=== PATIENT | male | born 1965 | race Caucasian/White ===

== ENCOUNTER 2017-09-17 19:49 | Emergency (ER) | payer OTHER, SELFPAY ==
[2017-09-17 19:55] VITALS: BP 152/97; PULSE 108; RESP 16; TEMP 36.6; O2SAT 97; BMI 38.9
--- NOTE | 2017-09-17 20:13 | XR_ITS ---
XR chest 2V HISTORY: ITS.REASON: PALPATIONS ORDERING PHYSICIAN: Ronaldo Joyner MD PATIENT AGE: 51 years COMPARISON: None available FINDINGS: The cardiomediastinal silhouette and pulmonary vascularity are within normal limits. There is coarsening of the bronchovascular markings with hyperinflation consistent with COPD. Atelectatic or fibrotic changes are present within the lingula. No lobar consolidation or collapse. No acute bony anomalies. IMPRESSION: COPD with atelectatic or fibrotic changes within the lingula
[2017-09-17 20:22] LABS: Microscopic, Urine URINE MICROSCOPIC (MICROSCOPIC)
[2017-09-17 20:23] LABS: Appearance,Urine CLEAR (Clear); Bilirubin,Urine Negative (Negative); Blood, Urine TRACE-L (Negative); Color,Urine YELLOW (Yellow); Glucose,Urine (UA) Negative (Negative); Ketones,Urine Negative (Negative); Leukocyte Esterase,Urine Negative (Negative); Nitrate,Urine Negative (Negative); Protein,Urine Negative (Negative); Urobilinogen,Urine 0.2 EU/dl (0.2)
[2017-09-17 20:34] LABS: Basophils # 0.1 K/mm3 (0-0.2); Basophils % 0.7 % (0.1-2.0); Eosinophils # 0.2 K/mm3 (0.0-0.4); Eosinophils % 2.5 % (0.1-12.0); Hematocrit 44.9 % (42.0-52.0); Hemoglobin 15.7 g/dL (14.1-18.0); Lymphocytes # 2.5 K/mm3 (0.7-4.5); Lymphocytes % 28.7 K/mm3 (10-50); Mean Corpuscular HGB Conc 34.9 g/dL (31.8-35.4); Mean Corpuscular Hemoglobin 29.7 pg (27.0-31.2); Mean Corpuscular Volume 85.3 fl (80-94); Mean Platelet Volume 7.3 fl (7.4-10.4); Monocytes # 0.6 K/mm3 (0.1-1.0); Monocytes % 6.6 % (1.7-9.3); Neutrophils # 5.3 K/mm3 (1.8-7.8); Neutrophils % 61.5 % (37.0-80.0); Platelet Count 247 K/mm3 (142-424); Red Blood Count 5.27 M/mm3 (4.60-6.20); Red Cell Distribution Width 12.8 % (11.5-17.5); White Blood Count 8.6 K/mm3 (4.8-10.8)
[2017-09-17 20:46] LABS: Activated Partial Thrombo Time 33.9 seconds (23.6-34.0); INR 2.46 (0.9-1.1); Prothrombin Time 26.8 seconds (9.4-11.8)
[2017-09-17 21:00] LABS: Alanine Aminotransferase 45 U/L (12-78); Albumin/Globulin Ratio 1.1 (1.1-1.8); Alkaline Phosphatase 94 U/L (46-116); Anion Gap 12.7 mEq/L (5-15); Aspartate Amino Transferase 24 U/L (15-37); Bilirubin,Total 0.4 mg/dL (0.2-1.0); Blood Urea Nitrogen 17 mg/dL (7-18); CKMB Relative Index 0.9 U/L (0-4.0); Calcium 9.2 mg/dL (8.5-10.1); Carbon Dioxide 31 mmol/L (21.0-32.0); Chloride 101 mmol/L (98-107); Creatine Kinase 139 U/L (39-308); Creatine Kinase MB 1.3 mg/ml (0.0-3.6); Creatinine Clearance Estimated 138 mL/min (0-300); Creatinine,Serum 1.09 mg/dL (0.70-1.30); Estimated Glomerular Filt Rate 71 ml/min (>60); GFR (African American) 86 ML/MIN (>60); Globulin 3.7 gm/dl (1.3-3.2); Glucose 139 mg/dL (74-106); Potassium 3.7 mmoL/L (3.5-5.1); Sodium 141 mmol/L (136-145); Total Protein,Serum 7.7 gm/dL (6.4-8.2); Troponin I < 0.02 ng/ml (0.00-0.06)
[2017-09-17 21:02] LABS: Bacteria,Urine Trace /lpf; RBC,Urine Occasional #/hpf (0-3)
--- NOTE | 2017-09-17 21:10 | HMH.EDDIZZ ---
ED Disposition Clinical Impression: Benign paroxysmal positional vertigo Qualifiers: Laterality: unspecified laterality Qualified Code(s): H81.10 - Benign paroxysmal vertigo, unspecified ear Disposition: Home, Self-Care Condition on Discharge: Good Instructions: Dizziness, Nonvertigo Additional Instructions: use meds and call your pcp in am Prescriptions: Meclizine HCl [Antivert 25mg tablet] 25 mg PO TID #15 tab - Critical Care Critical Care Time: No Attestation: On 09/17/17, the high probability of a clinically significant, sudden or life threatening deterioration of the following system(s) required my full and direct attention, intervention and personal management. The time I documented below is in addition to time spent performing reported procedures but includes the following listed in this critical care notation. Medical Decision Making - Medical Records Medical records reviewed: Yes: I reviewed the patient's medical records. Vital Signs: 09/17/17 19:55 09/17/17 21:12 Temperature 97.9 F Temperature Source Oral Pulse Rate [Right] 108 H 85 Respiratory Rate 16 12 Blood Pressure [Right Arm] 152/97 131/78 Blood Pressure Mean [Right Arm] 115 95 02 Sat by Pulse Oximetry 97 96 Oxygen Delivery Method Room Air Room Air - Lab Data Lab results reviewed: Yes: I reviewed the patient's lab results. Lab Results 09/17/17 20:14: PT 26.8 H, INR 2.46 H, APTT 33.9 09/17/17 20:16: WBC 8.6, RBC 5.27, Hgb 15.7, Hct 44.9, MCV 85.3, MCH 29.7, MCHC 34.9, RDW 12.8, Plt Count 247, MPV 7.3 L, Neut % (Auto) 61.5, Lymph % (Auto) 28.7, [place] % (Auto) 6.6, Eos % (Auto) 2.5, Baso % (Auto) 0.7, Neut # (Auto) 5.3, Lymph # (Auto) 2.5, [place] # (Auto) 0.6, Eos # (Auto) 0.2, Baso # (Auto) 0.1 09/17/17 20:16: Sodium 141, Potassium 3.7, Chloride 101, Carbon Dioxide 31, Anion Gap 12.7, BUN 17, Creatinine 1.09, Estimated Creat Clear 138, Estimated GFR 71, Est GFR ( Amer) 86, Glucose 139 H, Calcium 9.2, Total Bilirubin 0.4, AST 24, ALT 45, Alkaline Phosphatase 94, Total Creatine Kinase 139, CK-MB (CK-2) 1.3, CK-MB (CK-2) Rel Index 0.9, Troponin I < 0.02, Total Protein 7.7, Albumin 4.0, Globulin 3.7 H, Albumin/Globulin Ratio 1.1 09/17/17 20:16: Urine Color Yellow, Urine Appearance Clear, Urine pH 6.0, Ur Specific [place] 1.010, Urine Protein Negative, Urine Glucose (UA) Negative, Urine Ketones Negative, Urine Blood Trace-l, Urine Nitrate Negative, Urine Bilirubin Negative, Urine Urobilinogen 0.2, Ur Leukocyte Esterase Negative, Urine RBC Occasional, Urine Bacteria Trace Result diagrams: 09/17/17 20:16 09/17/17 20:16 Orders (Tests/Meds): ORDERS Category Date Time Status XR chest 2V Stat Exams 09/17/17 20:13 Taken ECG Request by /Nse Stat Y 09/17/17 20:13 Ordered - Radiology Data #1 Image(s): Chest Image Reviewed: Yes I reviewed the patient's radiology image Preliminary Findings: Normal/NAD - ECG Data Tracing #1 I reviewed this ECG and interpreted as documented below: Normal Sinus Rhythm: Yes Ischemic changes: non-specific ST-T wave changes - Mack Inquiry Pt receiving controlled substance: No Dizzy HPI - General Chief Complaint: Dizziness Stated Complaint: dizzy,sick at stomach High B/PHeart high Time Seen by Provider: 09/17/17 21:10 Mode of Arrival: Ambulatory Limitations: No Limitations Description of Symptoms (Recalled from ER Triage Doc. by RN): PT STATES WHEN HE GOT OUT OF BED, HE WAS DIZZY, HAD A OLVERA, PALPATIONS, PT DENIES ANY PAIN, PT STATES HE HAS A HISTORY OF HTN AND TAKES MEDS - History of Present Illness HPI Narrative: pt with dizzyness and started this am with no fever or trauma and no focal neuro sx and has had no recent illness - no olvera MD complaint: dizziness Onset (ago): hour(s) Timing: awoke with symptoms Description: lightheadedness History of similar episodes: No History of trauma: No Severity: moderate Exacerbating factors: movement - Related Data Home Medications
[2017-09-17 21:12] VITALS: BP 131/78; PULSE 85; RESP 12; O2SAT 96
--- NOTE | 2017-09-17 21:36 | PC.NURSE ---
[facility] CONSULTED RE YUMIKOERT CONSIDERED A SEDATING DRUG TO PREVENT DRIVING HOME. STATES ITS WOULD BE OK TO ADMINISTER TO PATIENT AND LET HIM DRIVE HOME
[2017-09-17 21:40] VITALS: BP 133/74; PULSE 87; RESP 12; O2SAT 95
[2017-09-17 21:46] VITALS: BP 133/74; PULSE 87; RESP 12; TEMP 37.1; O2SAT 95
== END 2017-09-17 21:49 | disposition home or self-care (01) ==
PROVIDERS: Emergency Medicine; Emergency Provider Emergency Medicine
DX: H81.10 Benign paroxysmal vertigo, unspecified ear (principal); F17.200 Nicotine dependence, unspecified, uncomplicated; Z79.01 Long term (current) use of anticoagulants; Z79.899 Other long term (current) drug therapy
CPT/HCPCS: 71046; 80053; 81001; 82550; 82553; 84484; 85025; 85610; 85730; 93005; 99284

== ENCOUNTER 2017-09-19 18:51 | Emergency (ER) | payer OTHER, SELFPAY ==
[2017-09-19 19:13] VITALS: BP 135/85; PULSE 82; RESP 14; TEMP 37.1; O2SAT 98
== END 2017-09-19 19:16 | disposition left against medical advice (07) ==
LOC: ER 19:13
PROVIDERS: Emergency Provider Emergency Medicine
DX: Z53.21 Procedure and treatment not carried out due to patient leaving prior to being seen by health care provider (principal)

== ENCOUNTER → 2018-09-29 12:01 | Outpatient (CLI) | payer OTHER, SELFPAY ==
--- NOTE | 2018-09-29 12:09 | NVE_ITS ---
Venous Exam Indications: 729.5 Pain in limb. IMPRESSIONS 1. There is no evidence of significant Reflux. 2. No evidence of deep or superficial vein thrombosis involving the left lower extremity Left lower extremity venous duplex evaluation. Doppler flow study including spectral analysis, color and matthews scale imaging. Location: Vascular laboratory. Patient status: Outpatient. Tables: Venous flow and imaging: + +-------+ + Location Overall Flow properties + +-------+ + Left common femoral Patent Normal phasicity; spontaneous; normal augmentation; compressible + +-------+ + Left saphenofemoral junction Patent Compressible + +-------+ + Left profunda femoral Patent Compressible + +-------+ + Left femoral Patent Normal phasicity; spontaneous; normal augmentation; compressible + +-------+ + Left greater saphenous Patent Normal phasicity; spontaneous; normal augmentation; compressible + +-------+ + Left popliteal Patent Normal phasicity; spontaneous; normal augmentation; compressible + +-------+ + Left posterior tibial Patent Compressible + +-------+ + Left peroneal Patent Compressible + +-------+ + Left gastrocnemius Patent Compressible + +-------+ + Left soleal Patent Compressible + +-------+ + (Report amended ) Electronically signed by: Rodrigo Ballard [id number]
== END ==
PROVIDERS: Visit Provider Emergency Medicine
DX: M79.652 Pain in left thigh (principal)
CPT/HCPCS: 93971

== ENCOUNTER 2021-03-21 17:24 | Emergency (ER) | payer MEDICAID, SELFPAY ==
[2021-03-21 17:26] VITALS: BP 158/87; PULSE 84; RESP 20; TEMP 36.8; O2SAT 93; BMI 38.7
[2021-03-21 18:20] VITALS: BP 132/71; PULSE 78; RESP 18; TEMP 36.8; O2SAT 98
--- NOTE | 2021-03-21 18:22 | HMH.EDGENADL ---
ED Disposition Clinical Impression: Left thigh pain Disposition: Home, Self-Care Condition on Discharge: Good Referrals: Fauzia Sterling [Primary Care Provider] - - Critical Care Critical Care Time: No Attestation: On 03/21/21, the high probability of a clinically significant, sudden or life threatening deterioration of the following system(s) required my full and direct attention, intervention and personal management. The time I documented below is in addition to time spent performing reported procedures but includes the following listed in this critical care notation. Medical Decision Making - Medical Records Medical records reviewed: Yes: I reviewed the patient's medical records. - Mack Inquiry Pt receiving controlled substance: No Vital Signs: 03/21/21 17:26 03/21/21 18:20 Temperature 98.3 F 98.3 F Temperature Source Oral Oral Pulse Rate 78 Pulse Rate [Left] 84 Respiratory Rate 20 18 Blood Pressure 132/71 Blood Pressure [Right Arm] 158/87 H Blood Pressure Mean [Right Arm] 110 Blood Pressure Source [Right Arm] Automatic Cuff 02 Sat by Pulse Oximetry 93 L Oxygen Delivery Method Room Air Room Air Medical Decision Narrative: 55 history of hypercoagulable disorder presented to the ED today with right thigh pain. Patient is well-appearing on initial evaluation no acute distress, ambulatory without shortness of breath no tachycardia on exam. Patient is therapeutic on his warfarin, and just had a checked recently. Differential diagnosis includes DVT, musculoskeletal pain, fracture of the lower extremity. Attempted to order DVT ultrasound of the left lower extremity, however do not have ultrasound in house at this time of night. After extensive discussion with the patient and given he is already on anticoagulation, will order outpatient study which he can obtain tomorrow and I will follow up the result. I have also performed an independent sound myself in the emergency department to assess for DVT, patient has collapsible femoral vein, and deep femoral vessels from the inguinal crease to popliteal areas, down into the calf I do not visualize any evidence of superficial or deep femoral vein, Dopplers were not performed, and I stressed to the patient that he could still have small DVTs which because by radiology and not by my bedside ultrasound. Patient also instructed that should he feel chest pain or shortness of breath or syncope consistent with pulmonary embolism he should return to the ED for further evaluation. Pt has verbalized understanding with this plan. General Adult HPI - General Chief complaint: Extremity Problem,Nontraumatic Stated complaint: possible blood clot/pain L leg Time Seen by Provider: 03/21/21 17:25 Mode of Arrival: Ambulatory Limitations: No Limitations Description of Symptoms (Recalled from ER Triage Doc. by RN): patient with hx of DVT c/o tingling in left leg/thigh area. describes pain as same pain like in the past when patient had a DVT. no warmness, or pain in a specific area. - History of Present Illness HPI narrative: 55-year-old male presents the ED today for left thigh pain. States that this is consistent with his prior episodes of DVT. 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 Just had his INR checked and was therapeutic. States that he has had several days, approaching a week of posterior thigh pain that he describes consistent with prior episodes of DVT in the left lower extremity. Follows with a [facility] care [facility] the [facility], has had pulmonary emboli and has been admitted to the hospital for these in the past. States he has not had any palpitations, shortness of breath, chest pain, activity limitation, states that he is on his feet all day and has had no difficulty doing his own activities of daily ernesto
== END 2021-03-21 18:35 | disposition home or self-care (01) ==
PROVIDERS: Emergency Provider Student in an Organized Health Care Education/Training Program; PCP Family Medicine
DX: M79.652 Pain in left thigh (principal); F17.210 Nicotine dependence, cigarettes, uncomplicated; Z86.718 Personal history of other venous thrombosis and embolism; Z88.0 Allergy status to penicillin
CPT/HCPCS: 99281

== ENCOUNTER → 2021-03-22 08:32 | Outpatient (CLI) | payer MEDICAID, SELFPAY ==
--- NOTE | 2021-03-22 | CA_ITS ---
APPROVED REPORT Left Lower Extremity Venous Study for DVT. 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 Presents today with pain in LLE and tingling/numbness in left foot x 1 week. Risk Factors Prior Phlebitis/DVT Obesity Current Smoker Medications Patient takes Warfarin daily. Vein Imaging CFV (L): compressive, spontaneous, phasic, augmentation FEM (L): compressive, spontaneous, phasic, augmentation POP (L): compressive, spontaneous, phasic, augmentation PTV (L): Compressible GSV (L): compressive, spontaneous, phasic, augmentation SSV (L): Compressible Peroneals (L):Compressible GAS (L): Compressible Findings No evidence of DVT or superficial thrombophlebitis in the veins scanned of the left lower extremity. Conclusion No evidence of DVT or superficial thrombophlebitis in the veins scanned of the left lower extremity. Electronically signed by : Rodrigo Ballard MD 03/22/2021 16:22:00
== END ==
PROVIDERS: PCP Family Medicine; Visit Provider Emergency Medicine
DX: M79.652 Pain in left thigh (principal); Z86.718 Personal history of other venous thrombosis and embolism; Z79.01 Long term (current) use of anticoagulants
CPT/HCPCS: 93971

== ENCOUNTER 2021-04-09 19:08 | Emergency (ER) | payer MEDICAID, SELFPAY ==
[2021-04-09 19:10] VITALS: BP 154/83; PULSE 90; RESP 21; TEMP 36.8; O2SAT 97; BMI 38.7
--- NOTE | 2021-04-09 19:54 | ECG_ITS ---
APPROVED REPORT Exam: Resting ECG HR:86 bpm ECG Measurements Heart Rate 86 AXES WY 212 P 44 QRSd 70 QRS -1 QT 354 T 40 QTc 423 Conclusion Sinus rhythm with 1st degree AV block Nonspecific ST abnormality Abnormal ECG Electronically signed by : Esvin Phelps MD 04/10/2021 08:55:57
--- NOTE | 2021-04-09 19:58 | XR_ITS ---
PROCEDURE INFORMATION: Exam: XR Chest Exam date and time: 04/09/2021 7:58 PM Age: 55 years old Clinical indication: Pain; Chest pressure; Additional info: Cp TECHNIQUE: Imaging protocol: XR of the chest. Views: 4 or more views. COMPARISON: CR CXR2V XR chest 2V 04/20/2018 9:26 PM FINDINGS: Lungs: Unremarkable. No consolidation. Pleural spaces: Unremarkable. No pleural effusion. No pneumothorax. Heart/Mediastinum: Unremarkable. No cardiomegaly. Bones/joints: Unremarkable. Soft tissues: The examination is limited due to limited inspiration and penetration of the chest with obese body habitus and lordotic projection presented. IMPRESSION: No acute findings.
[2021-04-09 20:14] LABS: Basophils # 0.1 K/mm3 (0-0.2); Basophils % 0.9 % (0.1-2.0); Eosinophils # 0.3 K/mm3 (0.0-0.4); Eosinophils % 2.5 % (0.1-12.0); Hematocrit 48.6 % (42.0-52.0); Hemoglobin 17.1 g/dL (14.1-18.0); Lymphocytes % 28.1 % (10-50); Mean Corpuscular HGB Conc 35.2 g/dL (31.8-35.4); Mean Corpuscular Hemoglobin 30.2 pg (27.0-31.2); Mean Corpuscular Volume 85.8 fl (80-94); Mean Platelet Volume 6.9 fl (7.4-10.4); Monocytes # 0.7 K/mm3 (0.1-1.0); Monocytes % 6.7 % (1.7-9.3); Neutrophils # 6.6 K/mm3 (1.8-7.8); Neutrophils % 61.8 % (37.0-80.0); Platelet Count 303 K/mm3 (142-424); Red Blood Count 5.66 M/mm3 (4.60-6.20); Red Cell Distribution Width 13.1 % (11.5-17.5); White Blood Count 10.7 K/mm3 (4.8-10.8)
[2021-04-09 20:20] LABS: Alanine Aminotransferase 24 U/L (12-78); Albumin Level 4.4 g/dl (3.5-5.0); Alkaline Phosphatase 119 U/L (38-126); Anion Gap 14.2 mEq/L (5-15); Aspartate Amino Transferase 34 U/L (17-59); Bilirubin,Direct 0.1 mg/dl (0.0-0.4); Bilirubin,Indirect 0.4 mg/dL (0.0-0.9); Bilirubin,Total 0.5 mg/dl (0.2-1.3); Bilirubin,Unconjugated 0.3 mg/dL (0.0-1.1); Blood Urea Nitrogen 14 mg/dl (9-20); Calcium 9.4 mg/dl (8.4-10.2); Carbon Dioxide 31 mmol/L (22.0-30.0); Chloride 97 mmol/L (98-107); Creatinine Clearance Estimated 179 mL/min (50-200); Estimated Glomerular Filt Rate 100 ml/min (>60); GFR (African American) 121 ML/MIN (>60); Glucose 137 mg/dl (74-100); Potassium 4.2 mmoL/L (3.5-5.1); Sodium 138 mmol/L (136-145); Total Protein,Serum 7.5 g/dl (6.3-8.2)
[2021-04-09 20:31] LABS: INR 2.21 (0.9-1.1); Prothrombin Time 24.6 seconds (10.1-12.5)
--- NOTE | 2021-04-09 20:32 | HMH.EDCP ---
ED Disposition Clinical Impression: Chest pain Qualifiers: Chest pain type: precordial pain Qualified Code(s): R07.2 - Precordial pain Disposition: Home, Self-Care Condition on Discharge: Good Instructions: DI for Atypical Chest Pain Additional Instructions: call pcp for follow up and recheck if needed Referrals: Fauzia Sterling [Primary Care Provider] - - Critical Care Critical Care Time: No Attestation: On 04/09/21, the high probability of a clinically significant, sudden or life threatening deterioration of the following system(s) required my full and direct attention, intervention and personal management. The time I documented below is in addition to time spent performing reported procedures but includes the following listed in this critical care notation. Medical Decision Making - Medical Records Medical records reviewed: Yes: I reviewed the patient's medical records. - Mack Inquiry Pt receiving controlled substance: No Vital Signs: 04/09/21 19:10 Temperature 98.2 F Temperature Source Oral Pulse Rate [Right] 90 Respiratory Rate 21 Blood Pressure [Right Arm] 154/83 H Blood Pressure Mean [Right Arm] 106 02 Sat by Pulse Oximetry 97 Oxygen Delivery Method Room Air - Lab Data Lab results reviewed: Yes: I reviewed the patient's lab results. Lab Results 04/09/21 19:15: WBC 10.7, RBC 5.66, Hgb 17.1, Hct 48.6, MCV 85.8, MCH 30.2, MCHC 35.2, RDW 13.1, Plt Count 303, MPV 6.9 L, Neut % (Auto) 61.8, Lymph % (Auto) 28.1, [place] % (Auto) 6.7, Eos % (Auto) 2.5, Baso % (Auto) 0.9, Neut # (Auto) 6.6, Lymph # (Auto) 3.0, [place] # (Auto) 0.7, Eos # (Auto) 0.3, Baso # (Auto) 0.1 04/09/21 19:15: Sodium 138, Potassium 4.2, Chloride 97 L, Carbon Dioxide 31 H, Anion Gap 14.2, BUN 14, Creatinine 0.80, Estimated Creat Clear 179, Estimated GFR 100, Est GFR ( Amer) 121, Glucose 137 H, Calcium 9.4, Troponin I < 0.01, C-Reactive Protein 3.0 04/09/21 19:15: ESR 8 04/09/21 19:15: Procalcitonin 0.064 04/09/21 19:15: Total Bilirubin 0.5, Direct Bilirubin 0.1, Conjugated Bilirubin 0.0, Indirect Bilirubin 0.4, Unconjugated Bilirubin 0.3, AST 34, ALT 24, Alkaline Phosphatase 119, Total Protein 7.5, Albumin 4.4 04/09/21 19:15: PT 24.6 H, INR 2.21 H Result diagrams: 04/09/21 19:15 04/09/21 19:15 Orders (Tests/Meds): ED MEDICATIONS Generic Name Dose Route Start Last Admin Trade Name Freq PRN Reason Stop Dose Admin Sodium Chloride 1,000 mls @ 999 mls/hr 04/09/21 20:15 04/09/21 20:17 Sod Chlor 0.9% 1000ml Bag IV 04/09/21 21:15 999 mls/hr .Q1H1M JOSEPHINE Administration Sodium Chloride 8 ml 04/09/21 20:10 Sodium Chloride 0.9% 10ml Vial IV 05/09/21 20:09 NEEDED PRN dilute pepcid Discontinued Medications Generic Name Dose Route Start Last Admin Trade Name Freq PRN Reason Stop Dose Admin Famotidine 20 mg 04/09/21 20:10 04/09/21 20:12 Famotidine 20mg/2ml Vial IV 04/09/21 20:11 20 mg ONCE ONE Administration Ketorolac Tromethamine 30 mg 04/09/21 20:10 Ketorolac 30mg/Ml Vial IV 04/09/21 20:11 ONCE ONE Metoclopramide HCl 5 mg 04/09/21 20:10 04/09/21 20:26 Metoclopramide Hcl 10mg/2ml Vial IVP 04/09/21 20:11 Not Given ONCE ONE Metoclopramide HCl 10 mg 04/09/21 20:26 Metoclopramide Hcl 10mg/2ml Vial IVP 04/09/21 20:27 ONCE ONE ORDERS Category Date Time Status Troponin I Q3H Lab 04/09/21 23:00 Ordered Troponin I Q3H Lab 04/10/21 02:00 Ordered - Radiology Data #1 Image(s): Chest Image Reviewed: Yes I have reviewed radiologist's interpretation Preliminary Findings: Normal/NAD - ECG Data Tracing #1 Normal Sinus Rhythm: Yes Ischemic changes: non-specific ST-T wave changes Medical Decision Narrative: pt has improved chest pain - pt has neg ekg and labs and stable exam Chest Pain HPI - General Chief Complaint: Chest Pain Stated Complaint: Midsternal CP and epigastric pain Time Seen by Provider: 04/09/21 20:00 Mode of A
[2021-04-09 20:34] LABS: Troponin I < 0.01 ng/ml (0.00-0.034)
[2021-04-09 20:39] LABS: Procalcitonin 0.064 ng/mL (0.0-2.0)
[2021-04-09 20:48] LABS: Erythrocyte Sedimentation Rate 8 mm/hr (0-20)
[2021-04-09 21:36] VITALS: BP 149/75; PULSE 88; RESP 20; TEMP 36.8; O2SAT 99
== END 2021-04-09 21:37 | disposition home or self-care (01) ==
PROVIDERS: Emergency Provider Emergency Medicine; PCP Family Medicine
DX: R07.2 Precordial pain (principal); R10.13 Epigastric pain; I10 Essential (primary) hypertension; F17.210 Nicotine dependence, cigarettes, uncomplicated
CPT/HCPCS: 71045; 80048; 80076; 84145; 84484; 85025; 85610; 85651; 86140; 93005; 96374; 96375; 99283

== ENCOUNTER 2021-05-30 17:27 | Emergency (ER) | payer MEDICAID, SELFPAY ==
--- NOTE | 2021-05-30 17:26 | ECG_ITS ---
APPROVED REPORT Exam: Resting ECG HR:86 bpm ECG Measurements Heart Rate 86 AXES NM 200 P 36 QRSd 84 QRS 3 QT 382 T 33 QTc 457 Conclusion Sinus rhythm with premature atrial complexes Otherwise normal ECG Electronically signed by : Esvin Phelps MD 06/05/2021 08:32:52
[2021-05-30 17:28] VITALS: BP 152/74; PULSE 84; RESP 16; TEMP 37; O2SAT 98; BMI 38.5
--- NOTE | 2021-05-30 17:35 | XR_ITS ---
PROCEDURE INFORMATION: Exam: XR Chest Exam date and time: 05/30/2021 5:35 PM Age: 55 years old Clinical indication: Other: Palpations; Additional info: Palpatations TECHNIQUE: Imaging protocol: XR of the chest. Views: 1 view. COMPARISON: CR XR CHEST AP 04/09/2021 8:16 PM FINDINGS: Lungs: Low lung volumes with bibasal subsegmental atelectasis/scarring. No appreciable pulmonary edema. No focal consolidation. Bilateral peripheral ground-glass opacities compatible with summation artifact. Pleural spaces: No large pleural effusion. No pneumothorax. Heart/Mediastinum: Cardiomediastinal silhouette is unchanged. Bones/joints: No acute osseous abnormality. Soft tissues: Unremarkable. IMPRESSION: No evidence of acute cardiopulmonary disease.
[2021-05-30 17:43] LABS: Basophils # 0.1 K/mm3 (0-0.2); Basophils % 1.2 % (0.1-2.0); Eosinophils # 0.1 K/mm3 (0.0-0.4); Eosinophils % 1.6 % (0.1-12.0); Hematocrit 44.4 % (42.0-52.0); Hemoglobin 15.4 g/dL (14.1-18.0); Lymphocytes % 34.7 % (10-50); Mean Corpuscular HGB Conc 34.7 g/dL (31.8-35.4); Mean Corpuscular Hemoglobin 29.9 pg (27.0-31.2); Mean Corpuscular Volume 86.2 fl (80-94); Mean Platelet Volume 7.9 fl (7.4-10.4); Monocytes # 0.7 K/mm3 (0.1-1.0); Monocytes % 7.9 % (1.7-9.3); Neutrophils # 4.8 K/mm3 (1.8-7.8); Neutrophils % 54.7 % (37.0-80.0); Platelet Count 285 K/mm3 (142-424); Red Blood Count 5.15 M/mm3 (4.60-6.20); White Blood Count 8.8 K/mm3 (4.8-10.8)
[2021-05-30 17:49] LABS: Anion Gap 9.9 mEq/L (5-15); Blood Urea Nitrogen 14 mg/dl (9-20); Calcium 9.4 mg/dl (8.4-10.2); Carbon Dioxide 32 mmol/L (22.0-30.0); Chloride 101 mmol/L (98-107); Creatinine Clearance Estimated 178 mL/min (50-200); Estimated Glomerular Filt Rate 100 ml/min (>60); GFR (African American) 121 ML/MIN (>60); Glucose 140 mg/dl (74-100); Potassium 3.9 mmoL/L (3.5-5.1); Sodium 139 mmol/L (136-145)
[2021-05-30 18:03] LABS: Troponin I < 0.01 ng/ml (0.00-0.034)
--- NOTE | 2021-05-30 18:04 | HMH.EDGENADL ---
ED Disposition Clinical Impression: Arrhythmia Qualifiers: Arrhythmia type: premature depolarization Premature depolarization type: ventricular Qualified Code(s): I49.3 - Ventricular premature depolarization Disposition: Home, Self-Care Condition on Discharge: Good Referrals: Provider,Referral, [Referring] - - Critical Care Critical Care Time: No Attestation: On 05/30/21, the high probability of a clinically significant, sudden or life threatening deterioration of the following system(s) required my full and direct attention, intervention and personal management. The time I documented below is in addition to time spent performing reported procedures but includes the following listed in this critical care notation. Medical Decision Making - Medical Records Medical records reviewed: Yes: I reviewed the patient's medical records. - Mack Inquiry Pt receiving controlled substance: No Vital Signs: 05/30/21 17:28 05/30/21 19:40 Temperature 98.6 F 98.6 F Temperature Source Oral Pulse Rate 72 Pulse Rate [Radial] 84 Respiratory Rate 16 16 Blood Pressure 124/75 Blood Pressure [Right Arm] 152/74 H Blood Pressure Mean [Right Arm] 100 Blood Pressure Position [Right Arm] Sitting 02 Sat by Pulse Oximetry 98 Oxygen Delivery Method Room Air - Lab Data Lab Results 05/30/21 17:00: WBC 8.8, RBC 5.15, Hgb 15.4, Hct 44.4, MCV 86.2, MCH 29.9, MCHC 34.7, RDW 14.0, Plt Count 285, MPV 7.9, Neut % (Auto) 54.7, Lymph % (Auto) 34.7, [place] % (Auto) 7.9, Eos % (Auto) 1.6, Baso % (Auto) 1.2, Neut # (Auto) 4.8, Lymph # (Auto) 3.0, [place] # (Auto) 0.7, Eos # (Auto) 0.1, Baso # (Auto) 0.1 05/30/21 17:00: Sodium 139, Potassium 3.9, Chloride 101, Carbon Dioxide 32 H, Anion Gap 9.9, BUN 14, Creatinine 0.80, Estimated Creat Clear 178, Estimated GFR 100, Est GFR ( Amer) 121, Glucose 140 H, Calcium 9.4, Troponin I < 0.01 05/30/21 17:00: Magnesium 1.8 Result diagrams: 05/30/21 17:00 05/30/21 17:00 Medical Decision Narrative: Patient is a 55-year-old male presented to the emergency department chief complaint of sensation of abnormal heart rhythm. Differential diagnosis in the patient includes atrial fibrillation, ACS, PVCs, electrolyte abnormality among others. Given this order CBC, CMP, magnesium, EKG, chest x-ray and troponin. Patient initial troponin was nonconcerning, patient denied acute chest pain but stated was rather a strain sensation. CMP and magnesium grossly within normal limits. Patient has seen a atomic process engineer as for later followed up with us, again counseled patient on tobacco use as well as caffeine use increasing the likelihood of PVCs. Patient discharged. General Adult HPI - General Chief complaint: Arrhythmia/Palpitations Stated complaint: Palpitations Time Seen by Provider: 05/30/21 17:50 Mode of Arrival: Ambulatory Limitations: No Limitations Description of Symptoms (Recalled from ER Triage Doc. by RN): to ed per pvt car with c/o palpatations pt states symptoms x 1 month seen by cardiology pt states today occuring more often approx every 4-5 mins. pt denies any chest pain - History of Present Illness HPI narrative: Patient is a 55-year-old male who is presenting to the emergency department with chief complaint of abnormal beats in his chest. He states that he has had prior however today they occurred more frequently for a period of time and so he came to the emergency department to be evaluated. He states that he seen a atomic process engineer for this, the multiple procedures done were Holter monitor for a week and was told by the atomic process engineer that he should avoid caffeine. Menses continue to drink pop of her he is drinking less than he used to - Related Data Home Medications Medication Instructions Recorded Confirmed Warfarin Sodium [Coumadin 10mg 10 mg PO DAILY 09/17/17 09/28/18 tablet] Amlodipine Besylate [Norvasc 5mg 5 mg PO DAILY 11/08/17 09/28/18 tablet] Aspirin 81 mg PO DAILY
[2021-05-30 18:51] LABS: Magnesium 1.8 mg/dl (1.6-2.3)
[2021-05-30 19:40] VITALS: BP 124/75; PULSE 72; RESP 16; TEMP 37; O2SAT 98
== END 2021-05-30 19:56 | disposition home or self-care (01) ==
PROVIDERS: Emergency Provider Emergency Medicine; PCP Family Medicine
DX: I49.3 Ventricular premature depolarization (principal); F17.210 Nicotine dependence, cigarettes, uncomplicated
CPT/HCPCS: 71045; 80048; 83735; 84484; 85025; 93005; 99283

== ENCOUNTER 2024-05-22 14:43 | Emergency (ER) | payer MEDICAID, SELFPAY ==
--- NOTE | 2024-05-22 14:51 | ED_ITS ---
<Statement entered by Bk Marrero MD - 05/22/24 22:22> I was consulted by the [facility], and we discussed the complexity of the problems being addressed. I approved the treatment and management plan for this patient's care in the emergency department, thus performing a substantive portion of the medical decision making. Bk Marrero MD Discharge Plan Disposition Patient Disposition: Home, Self-Care Condition: Good Prescriptions Prescriptions: No Action buprenorphine-naloxone [Suboxone] 1 EACH Film 6 mg PO DAILY buspirone 5 MG Tablet 5 mg PO DAILY metoprolol succinate 100 MG Tab.Er.24h 100 mg PO DAILYDM omeprazole 40 Capsule.Dr 40 mg PO DAILY ranitidine HCl 150 MG Tablet 150 mg PO DAILY warfarin [Coumadin] 10 MG Tablet 10 mg PO DAILY amlodipine 5 MG Tablet 5 mg PO DAILY lisinopril-hydrochlorothiazide 1 EACH Tablet 1 tab PO DAILY aspirin 81 MG Tab.Chew 81 mg PO DAILY Referrals Follow up/Referrals: Fauzia Sterling MD [Primary Care Provider] - See instructions Activity Restrictions/Add. Instructions Additional Instructions/Restrictions: As we discussed please keep your follow-up appointment and workup scheduled with [facility]. 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 Return to the ER for any worsening signs or symptoms as needed. Clinical Impressions Clinical Impression: Sweating Print Language Print Language: Lithuanian Discharge ED Provider: Bk Marrero General Adult HPI <CYNTHIA Patel - Last Filed: 05/22/24 21:31> General Chief complaint: Recheck/Abnormal Lab/Rx Stated complaint: sweating, red eyes, dizzy Time Seen by Provider: 05/22/24 14:50 History of Present Illness HPI narrative: Patient presents for evaluation of sweating. 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 He felt like his face was flushed and felt dizzy but did not lose consciousness. The dizziness did not last however the diaphoresis persisted for at least 30 minutes. He denies any chest pain cough fever chills hemoptysis hematochezia melena nausea vomiting diarrhea. He does have a history of thrombophilia and was recently taken off of testosterone as a result. He follows closely with cardiology for hypertension management as he has had very elevated blood pressures recently Related Data Home Medications ?Medication ?Instructions ?Recorded ?Confirmed warfarin 10 mg tablet (Coumadin) 10 mg PO DAILY dvt prophylaxis 09/17/17 09/28/18 amlodipine 5 mg tablet 5 mg PO DAILY blood pressure 11/08/17 09/28/18 aspirin 81 mg chewable tablet 81 mg PO DAILY heart 04/12/18 09/28/18 lisinopril 20 1 tab PO DAILY blood presure 04/12/18 09/28/18 mg-hydrochlorothiazide 12.5 mg tablet buprenorphine 4 mg-naloxone 1 mg 6 mg PO DAILY . 04/20/18 09/28/18 sublingual film (Suboxone) buspirone 5 mg tablet 5 mg PO DAILY Anxiety 09/28/18 09/28/18 metoprolol succinate 100 mg 100 mg PO DAILYDM High blood 09/28/18 09/28/18 tablet,extended release 24 hr pressure omeprazole 40 mg capsule,delayed 40 mg PO DAILY Supplement 09/28/18 09/28/18 release ranitidine HCl 150 mg tablet 150 mg PO DAILY Supplement 09/28/18 09/28/18 Allergies Allergy/AdvReac Type Severity Reaction Status Date / Time Penicillins Allergy Verified 09/28/18 20:17 [facility] <CYNTHIA Ptael - Last Filed: 05/22/24 21:31> [facility] Disclaimer: The information contained in this section may have been updated after the patient was seen, as this information can be updated by other users. Social History Smoking Status: Current every day smoker tobacco type: cigarettes packs per day: 2 second hand exposure: Yes alcohol intake: never current occupational status: employed Travel in the last 8 weeks: None housing: house caffeine: Yes Other Medical History Have you received the Flu Vaccine for this season: No Have you received the Pneumonia Vaccine: No <CYNTHIA Patel - Last Filed: 05/22/24 21:31> ROS Obtained: Yes Systems reviewed as appropriate & no additional complaints except as documented Physical Exam <CYNTHIA Patel - Last Filed: 05/22/24 21:31> General General appearance: alert and in no apparent distress Respiratory Respiratory exam: Present normal lung sounds bilaterally Cardiovascular Cardiovascular exam: Present regular rate Neurological Exam Neurological exam: Present alert and oriented X3 Medical Decision Making <CYNTHIA Patel - Last Filed: 05/22/24 21:31> Medical Records Medical records reviewed: Yes I reviewed the patient's medical records. Screening: Per USPSTF and CDC recommendations, given the prevalence of disease in our region, it is our hospital?s policy to screen for HIV and viral Hepatitis for all patients aged 18 and over and those with ongoing risk factors. Mack Inquiry Pt receiving controlled substance: No Vital Signs: 05/22/24 14:54 05/22/24 16:56 Temperature 98.1 F 97.9 F Temperature Source Oral Oral Pulse Rate 62 Pulse Rate [Left] 68 Respiratory Rate 16 18 Blood Pressure 115/75 Blood Pressure [Right Arm] 173/84 H Blood Pressure Mean [Right Arm] 113 Blood Pressure Source Automatic Cuff Blood Pressure Source [Right Arm] Automatic Cuff Blood Pressure Position Sitting Blood Pressure Position [Right Arm] Sitting 02 Sat by Pulse Oximetry 98 Oxygen Delivery Method Room Air Room Air Lab Data Lab results reviewed: Yes I reviewed the patient's lab results. Lab Results 05/22/24 14:55: WBC 6.1, RBC 7.29 H, Hgb 21.4 H, Hct 62.2 H*, MCV 85.3, MCH 29.4, MCHC 34.4, RDW 15.6, Plt Count 167, MPV 7.3 L, Neut % (Auto) 57.4, Lymph % (Auto) 28.2, Stearns % (Auto) 9.9 H, Eos % (Auto) 2.8, Baso % (Auto) 1.7, Neut # (Auto) 3.5, Lymph # (Auto) 1.7, Stearns # (Auto) 0.6, Eos # (Auto) 0.2, Baso # (Auto) 0.1, D-Dimer < 0.25, Sodium 132 L, Potassium 5.0, Chloride 102, Carbon Dioxide 24, Anion Gap 11.0, BUN 20, Creatinine 1.10, Estimated Creat Clear 107, Estimated GFR 69, Est GFR ( Amer) 83, Glucose 114 H, Calcium 9.0, Total Bilirubin 1.5 H, AST 43, ALT 20, Alkaline Phosphatase 64, Troponin I < 0.01, NT-Pro-B Natriuret Pep 43.1, Total Protein 7.5, Albumin 4.5, Globulin 3.0, Albumin/Globulin Ratio 1.5, TSH 2.13, Free T4 Index 2.6 L, Thyroxine (T4) 7.5, T3 Uptake 34, Urine Color Yellow, Urine Appearance Clear, Urine pH 6.0, Ur Specific Cedar 1.020, Urine Protein Negative, Urine Glucose (UA) Negative, Urine Ketones Negative, Urine Blood Negative, Urine Nitrate Negative, Urine Bilirubin Negative, Urine Urobilinogen 0.2, Ur Leukocyte Esterase Negative, Urine RBC 3-5, Urine WBC 3-5, Ur Squamous Epith Cells Occasional, Amorphous Sediment Trace, Urine Bacteria Trace, Hyaline Casts Occ, Urine Yeast Occasional, HIV 1&2 Antibody Rapid Nonreactive 05/22/24 15:49: SARS-CoV-2 (PCR) Not detected, Influenza A Untype (PCR) Not detected, Influenza Type B (PCR) Not detected 05/22/24 14:55 05/22/24 14:55 Orders (Tests/Meds): ED MEDICATIONS Discontinued Medications Generic Name Dose Route Start Last Admin Trade Name Freq PRN Reason Stop Dose Admin Ondansetron HCl 4 mg 05/22/24 15:00 05/22/24 15:14 Ondansetron 4mg/2ml Vial IV 05/22/24 15:01 4 mg ONCE ONE Administration ORDERS Category Date Time Status Chest XR 2 view (NOT portable) [XR chest 2V] Stat Exams 05/22/24 15:00 Completed BNP [NT Pro Brain Natriuretic Pep.] Stat Lab 05/22/24 14:55 Completed CBC w/Auto Diff [Complete Blood Count Auto Diff] Stat Lab 05/22/24 14:55 Completed CMP [Comprehensive Metabolic Panel] Stat Lab 05/22/24 14:55 Completed D-Dimer Stat Lab 05/22/24 14:55 Completed HIV (1&2) Antibody Rapid Stat Lab 05/22/24 14:55 Completed Hep C Ab with Reflex to RNA Stat Lab 05/22/24 14:55 Received Rapid PCR Covid and Flu A/B Stat Lab 05/22/24 15:49 Completed Thyroid Panel Stat Lab 05/22/24 14:55 Completed Trop I [Troponin I] Stat Lab 05/22/24 14:55 Completed UA [Urinalysis and Microscopic] Stat Lab 05/22/24 14:55 Completed Medical Decision Narrative: In summary patient is a 58-year-old male who presents to the emergency department for evaluation of sweating. Patient is initially hypertensive with a blood pressure of 173/84 but a heart rate of 68 respiratory rate is 16 satting at 98% room air upon arrival, afebrile. Physical exam is actually unremarkable and nonfocal including normal breath sounds normal heart sounds no abdominal tenderness and his skin is currently warm and dry. He does have bilateral conjunctival injection but no discharge or pain with extraocular movements. He is asymptomatic completely. He states that this has been there for 2 weeks.. Differential diagnosis includes endocrine abnormality versus acute infection versus possible ACS etc. Initial workup will be conducted with hematologic labs twelve-lead EKG plain film chest x-ray COVID flu swabs. Initial interventions i were considered however patient has no symptoms at the moment to intervene upon and thus are deferred for now. Initial workup reviewed by me and his hematologic labs are nonactionable, his NT-proBNP is normal, his troponin is undetectable, his twelve-lead EKG shows no evidence of ACS, and my informal interpretation of his plain from chest x-ray shows no acute processes.. Upon repeat evaluation patient remains asymptomatic.. Given this we had interactive discussion with the patient regarding his findings and his current regimens. 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 Currently we have ruled out any serious or life- threatening conditions and patient will follow closely with cardiology and hematology oncology with strict return precautions thus he is appropriate for discharge. <Bk Marrero MD - Last Filed: 05/22/24 19:18> Vital Signs: 05/22/24 14:54 05/22/24 16:56 Temperature 98.1 F 97.9 F Temperature Source Oral Oral Pulse Rate 62 Pulse Rate [Left] 68 Respiratory Rate 16 18 Blood Pressure 115/75 Blood Pressure [Right Arm] 173/84 H Blood Pressure Mean [Right Arm] 113 Blood Pressure Source Automatic Cuff Blood Pressure Source [Right Arm] Automatic Cuff Blood Pressure Position Sitting Blood Pressure Position [Right Arm] Sitting 02 Sat by Pulse Oximetry 98 Oxygen Delivery Method Room Air Room Air Lab Data Lab Results 05/22/24 14:55: WBC 6.1, RBC 7.29 H, Hgb 21.4 H, Hct 62.2 H*, MCV 85.3, MCH 29.4, MCHC 34.4, RDW 15.6, Plt Count 167, MPV 7.3 L, Neut % (Auto) 57.4, Lymph % (Auto) 28.2, Stearns % (Auto) 9.9 H, Eos % (Auto) 2.8, Baso % (Auto) 1.7, Neut # (Auto) 3.5, Lymph # (Auto) 1.7, Stearns # (Auto) 0.6, Eos # (Auto) 0.2, Baso # (Auto) 0.1, D-Dimer < 0.25, Sodium 132 L, Potassium 5.0, Chloride 102, Carbon Dioxide 24, Anion Gap 11.0, BUN 20, Creatinine 1.10, Estimated Creat Clear 107, Estimated GFR 69, Est GFR ( Amer) 83, Glucose 114 H, Calcium 9.0, Total Bilirubin 1.5 H, AST 43, ALT 20, Alkaline Phosphatase 64, Troponin I < 0.01, NT-Pro-B Natriuret Pep 43.1, Total Protein 7.5, Albumin 4.5, Globulin 3.0, Albumin/Globulin Ratio 1.5, TSH 2.13, Free T4 Index 2.6 L, Thyroxine (T4) 7.5, T3 Uptake 34, Urine Color Yellow, Urine Appearance Clear, Urine pH 6.0, Ur Specific Cedar 1.020, Urine Protein Negative, Urine Glucose (UA) Negative, Urine Ketones Negative, Urine Blood Negative, Urine Nitrate Negative, Urine Bilirubin Negative, Urine Urobilinogen 0.2, Ur Leukocyte Esterase Negative, Urine RBC 3-5, Urine WBC 3-5, Ur Squamous Epith Cells Occasional, Amorphous Sediment Trace, Urine Bacteria Trace, Hyaline Casts Occ, Urine Yeast Occasional, HIV 1&2 Antibody Rapid Nonreactive 05/22/24 15:49: SARS-CoV-2 (PCR) Not detected, Influenza A Untype (PCR) Not detected, Influenza Type B (PCR) Not detected Orders (Tests/Meds): ED MEDICATIONS Discontinued Medications Generic Name Dose Route Start Last Admin Trade Name Freq PRN Reason Stop Dose Admin Ondansetron HCl 4 mg 05/22/24 15:00 05/22/24 15:14 Ondansetron 4mg/2ml Vial IV 05/22/24 15:01 4 mg ONCE ONE Administration ORDERS Category Date Time Status Chest XR 2 view (NOT portable) [XR chest 2V] Stat Exams 10/31/24 15:00 Completed BNP [NT Pro Brain Natriuretic Pep.] Stat Lab 05/22/24 14:55 Completed CBC w/Auto Diff [Complete Blood Count Auto Diff] Stat Lab 05/22/24 14:55 Completed CMP [Comprehensive Metabolic Panel] Stat Lab 05/22/24 14:55 Completed D-Dimer Stat Lab 05/22/24 14:55 Completed HIV (1&2) Antibody Rapid Stat Lab 05/22/24 14:55 Completed Hep C Ab with Reflex to RNA Stat Lab 05/22/24 14:55 Received Rapid PCR Covid and Flu A/B Stat Lab 05/22/24 15:49 Completed Thyroid Panel Stat Lab 05/22/24 14:55 Completed Trop I [Troponin I] Stat Lab 05/22/24 14:55 Completed UA [Urinalysis and Microscopic] Stat Lab 05/22/24 14:55 Completed ECG Data Tracing #1: Independently interpreted by me rate is 57, rhythm is regular, axis is normal, no ST elevation in anatomical contiguous leads, QTc 373. Critical Care <CYNTHIA Patel - Last Filed: 05/22/24 21:31> Critical Care Time Critical Care Time: No
[2024-05-22 14:54] VITALS: BP 173/84; PULSE 68; RESP 16; TEMP 36.7; O2SAT 98; BMI 33.0
--- NOTE | 2024-05-22 15:00 | XR_ITS ---
PROCEDURE INFORMATION: Exam: XR Chest Exam date and time: 05/22/2024 3:35 PM Age: 58 years old Clinical indication: Other: Diaphoresis headache TECHNIQUE: Imaging protocol: Radiologic exam of the chest. Views: 2 views. COMPARISON: No relevant prior studies available. FINDINGS: Lungs: Perihilar interstitial opacities and peribronchial thickening. No confluent airspace consolidation or nodules. Pleural spaces: No pleural effusion. No pneumothorax. Heart/Mediastinum: No abnormalities. No cardiomegaly. No pulmonary vascular congestion. Bones/joints: No fractures or bone lesions. IMPRESSION: Perihilar interstitial opacities. Consider viral or atypical pneumonia and pulmonary edema.
[2024-05-22 15:09] LABS: Microscopic, Urine URINE MICROSCOPIC (MICROSCOPIC)
--- NOTE | 2024-05-22 15:12 | ECG_ITS ---
APPROVED REPORT Exam: Resting ECG HR:57 bpm ECG Measurements Heart Rate 57 AXES CA 160 P -52 QRSd 83 QRS 35 QT 378 T 48 QTc 373 Conclusion SINUS BRADYCARDIA WITH OCCASIONAL SUPRAVENTRICULAR PREMATURE COMPLEXES BORDERLINE ECG UNCONFIRMED REPORT Electronically signed by : ELISEO GOODWIN, 05/24/2024 00:46:23
[2024-05-22] MEDS: ONDANSETRON 4MG/2ML VIAL 4 MG IV (15:14)
[2024-05-22 15:26] LABS: Basophils # 0.1 K/mm3 (0-0.2); Basophils % 1.7 % (0.1-2.0); Eosinophils # 0.2 K/mm3 (0.0-0.4); Eosinophils % 2.8 % (0.1-12.0); Lymphocytes # 1.7 K/mm3 (0.7-4.5); Lymphocytes % 28.2 % (10-50); Mean Corpuscular HGB Conc 34.4 g/dL (31.8-35.4); Mean Corpuscular Hemoglobin 29.4 pg (27.0-31.2); Mean Corpuscular Volume 85.3 fl (80-94); Mean Platelet Volume 7.3 fl (7.4-10.4); Monocytes # 0.6 K/mm3 (0.1-1.0); Monocytes % 9.9 % (1.7-9.3); Neutrophils # 3.5 K/mm3 (1.8-7.8); Neutrophils % 57.4 % (37.0-80.0); Platelet Count 167 K/mm3 (142-424); Red Blood Count 7.29 M/mm3 (4.60-6.20); Red Cell Distribution Width 15.6 % (11.5-17.5); White Blood Count 6.1 K/mm3 (4.8-10.8)
[2024-05-22 15:28] LABS: Hematocrit 62.2 % (42.0-52.0); Hemoglobin 21.4 g/dL (14.1-18.0)
[2024-05-22 15:31] LABS: Albumin Level 4.5 g/dl (3.5-5.0); Albumin/Globulin Ratio 1.5 (1.1-1.8); Blood Urea Nitrogen 20 mg/dl (9-20); Carbon Dioxide 24 mmol/L (22.0-30.0); Creatinine Clearance Estimated 107 mL/min (50-200); Estimated Glomerular Filt Rate 69 ml/min (>60); GFR (African American) 83 ML/MIN (>60); Glucose 114 mg/dl (74-100); Total Protein,Serum 7.5 g/dl (6.3-8.2)
[2024-05-22 15:33] LABS: Appearance,Urine CLEAR (Clear); Bilirubin,Urine Negative (Negative); Blood, Urine Negative (Negative); Color,Urine YELLOW (Yellow); Glucose,Urine (UA) Negative (Negative); Ketones,Urine Negative (Negative); Leukocyte Esterase,Urine Negative (Negative); Nitrate,Urine Negative (Negative); Protein,Urine Negative (Negative); Urobilinogen,Urine 0.2 EU/dl (0.2)
[2024-05-22 15:36] LABS: D-Dimer < 0.25 ug/mL (0.0-0.5)
[2024-05-22 15:42] LABS: Chloride 102 mmol/L (98-107); Sodium 132 mmol/L (136-145)
[2024-05-22 15:43] LABS: NT Pro Brain Natriuretic Pep. 43.1 pg/mL (0-125)
[2024-05-22 15:45] LABS: Alanine Aminotransferase 20 U/L (12-78); Alkaline Phosphatase 64 U/L (38-126); Aspartate Amino Transferase 43 U/L (17-59); Bilirubin,Total 1.5 mg/dl (0.2-1.3)
[2024-05-22 15:46] LABS: Troponin I < 0.01 ng/ml (0.00-0.034)
[2024-05-22 15:51] LABS: Bacteria,Urine Trace /lpf; Squamous Epithelial Cell,Urine Occasional #/hpf (0-5); Triiodothryronine (T3) Uptake 34 % (23.5-40.5)
[2024-05-22 15:52] LABS: Amorphous Sediment,Urine Trace /lpf; Free Thyroxine Index 2.6 ug/dL (5.93-13.13); Hyaline Casts,Urine OCC #/lpf (0); T4 (Thyroxine) 7.5 ug/dl (5.53-11.0); Yeast,Urine Occasional /lpf
[2024-05-22 15:53] LABS: Coronavirus 19, PCR Not Detected (NotDetected); Influenza A, PCR Not Detected (NotDetected); Influenza B, PCR Not Detected (NotDetected)
[2024-05-22 16:06] LABS: Thyroid Stimulating Hormone 2.13 uIU/mL (0.465-4.68)
[2024-05-22 16:31] LABS: HIV (1&2) Antibody Rapid NONREACTIVE (NONREACTIVE)
[2024-05-22 16:56] VITALS: BP 115/75; PULSE 62; RESP 18; TEMP 36.6; O2SAT 95
[2024-05-23 10:16] LABS: HCV Ab Non Reactive (Non Reactive)
== END 2024-05-22 16:56 | disposition home or self-care (01) ==
PROVIDERS: Physician Assistant; Emergency Provider Emergency Medicine; PCP Family Medicine
DX: R61 Generalized hyperhidrosis (principal); R42 Dizziness and giddiness
CPT/HCPCS: 71046; 80053; 81001; 83880; 84436; 84443; 84479; 84484; 85025; 85378; 86803; 87389; 87636; 93005; 96374; 99283; J2405

== ENCOUNTER 2024-06-01 13:37 | Emergency (ER) | payer MEDICAID, SELFPAY ==
[2024-06-01] VITALS (9 sets, daily range): BP systolic 94–121; BP diastolic 64–87; PULSE 52–64; RESP 13–15; TEMP 36.6–36.7; O2SAT 91–98; BMI 33.0
--- NOTE | 2024-06-01 13:38 | ECG_ITS ---
APPROVED REPORT Exam: Resting ECG HR:61 bpm ECG Measurements Heart Rate 61 AXES DE 222 P 63 QRSd 81 QRS 23 QT 388 T 39 QTc 391 Conclusion SINUS RHYTHM WITH FIRST DEGREE AV BLOCK ABNORMAL ECG Electronically signed by : LAVELLE KOTHARI, 06/01/2024 15:44:30
--- NOTE | 2024-06-01 13:49 | XR_ITS ---
PROCEDURE INFORMATION: Exam: XR Chest Exam date and time: 06/01/2024 1:56 PM Age: 58 years old Clinical indication: Pain; Chest pressure; Additional info: Chest pain 2+ weeks TECHNIQUE: Imaging protocol: Radiologic exam of the chest. Views: 2 views. Total images: 2 COMPARISON: CR XR CHEST 2V 05/22/2024 3:35 PM FINDINGS: Lungs: Unremarkable. No consolidation. Pleural spaces: Unremarkable. No pleural effusion. No pneumothorax. Heart/Mediastinum: Unremarkable. No cardiomegaly. Bones/joints: Unremarkable. IMPRESSION: No acute findings.
--- NOTE | 2024-06-01 14:06 | CT_ITS ---
PROCEDURE INFORMATION: Exam: CTA Chest With Contrast Exam date and time: 06/01/2024 2:25 PM Age: 58 years old Clinical indication: Other: Chest pain to back; Additional info: Cp to back TECHNIQUE: Imaging protocol: Computed tomographic angiography of the chest with contrast. Exam focused on the arteries. 3D rendering (Not supervised by radiologist): MIP and/or 3D reconstructed images were created by the technologist. Total images: 799 Radiation optimization: All CT scans at this facility use at least one of these dose optimization techniques: automated exposure control; mA and/or kV adjustment per patient size (includes targeted exams where dose is matched to clinical indication); or iterative reconstruction. Contrast material: ISOVUE 370; Contrast volume: 80 ml; Contrast route: INTRAVENOUS (IV); COMPARISON: CR Chest 06/01/2024 1:56 PM FINDINGS: Pulmonary arteries: No evidence of pulmonary embolism. Aorta: No evidence of aortic dissection. Lungs: No focal pneumonia. Granulomatous calcifications noted within the lungs bilaterally. Pleural spaces: Unremarkable. No pneumothorax. No pleural effusion. Heart: The heart is not enlarged. Lymph nodes: Calcified hilar lymph nodes noted bilaterally. No mediastinal or axillary lymphadenopathy. Adrenal glands: 1.7 cm fatty nodule noted on the left adrenal gland, likely an adenoma. Right adrenal gland within normal limits. Kidneys: Atrophic changes of the right kidney. Bones/joints: The thoracic spine demonstrates mild degenerative changes at multiple levels. Soft tissues: Gynecomastia is noted. IMPRESSION: 1. No evidence of pulmonary embolism. 2. No evidence of aortic dissection. 3. No focal pneumonia. 4. No mediastinal or axillary lymphadenopathy.
--- NOTE | 2024-06-01 14:08 | ED_ITS ---
Discharge Plan Disposition Chief Complaint: Chest Pain Prescriptions Prescriptions: No Action buprenorphine-naloxone [Suboxone] 1 EACH Film 6 mg PO DAILY buspirone 5 MG Tablet 5 mg PO DAILY metoprolol succinate 100 MG Tab.Er.24h 100 mg PO DAILYDM omeprazole 40 Capsule.Dr 40 mg PO DAILY ranitidine HCl 150 MG Tablet 150 mg PO DAILY warfarin [Coumadin] 10 MG Tablet 10 mg PO DAILY amlodipine 5 MG Tablet 5 mg PO DAILY lisinopril-hydrochlorothiazide 1 EACH Tablet 1 tab PO DAILY aspirin 81 MG Tab.Chew 81 mg PO DAILY Referrals Follow up/Referrals: Fauzia Sterling MD [Primary Care Provider] - See instructions Print Language Print Language: Czech Discharge ED Provider: Bk Marrero General Chief Complaint: Chest Pain Stated Complaint: cp Time Seen by Provider: 06/01/24 13:48 Mode of Arrival: Ambulatory Source of Information: Patient Limitations: No Limitations Description of Symptoms (Recalled from ER Triage Doc. by RN): pt presents to ED with c/o chest pain. pt reports pain intermittent for the past couple of weeks. pt reports that he has been seen by a racing mechanic in the past. pt reports that he does have gi history. 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 Onset was subacute, over the last 2 weeks. Patient has had intermittent substernal chest pain that occurs both at rest and with exertion, it does not appear to be particularly worse 1 where the other. He also has similar pain in the middle of his back that occurs at rest and also with exertion. He denies trauma or inciting event. States he has acid reflux and he is blood pressure medications were recently changed causing him to be gassy however it does not particularly feel like his regular acid reflux. Due to persistent symptoms he presents here for continued evaluation. Related Data Home Medications ?Medication ?Instructions ?Recorded ?Confirmed warfarin 10 mg tablet (Coumadin) 10 mg PO DAILY dvt prophylaxis 09/17/17 09/28/18 amlodipine 5 mg tablet 5 mg PO DAILY blood pressure 11/08/17 09/28/18 aspirin 81 mg chewable tablet 81 mg PO DAILY heart 04/12/18 09/28/18 lisinopril 20 1 tab PO DAILY blood presure 04/12/18 09/28/18 mg-hydrochlorothiazide 12.5 mg tablet buprenorphine 4 mg-naloxone 1 mg 6 mg PO DAILY . 04/20/18 09/28/18 sublingual film (Suboxone) buspirone 5 mg tablet 5 mg PO DAILY Anxiety 09/28/18 09/28/18 metoprolol succinate 100 mg 100 mg PO DAILYDM High blood 09/28/18 09/28/18 tablet,extended release 24 hr pressure omeprazole 40 mg capsule,delayed 40 mg PO DAILY Supplement 09/28/18 09/28/18 release ranitidine HCl 150 mg tablet 150 mg PO DAILY Supplement 09/28/18 09/28/18 Allergies Allergy/AdvReac Type Severity Reaction Status Date / Time Penicillins Allergy Verified 09/28/18 20:17 [facility] Disclaimer: The information contained in this section may have been updated after the patient was seen, as this information can be updated by other users. Social History Smoking Status: Current every day smoker tobacco type: cigarettes packs per day: 2 second hand exposure: Yes alcohol intake: never current occupational status: employed Travel in the last 8 weeks: None housing: house caffeine: Yes Other Medical History Have you received the Flu Vaccine for this season: No Have you received the Pneumonia Vaccine: No ROS Obtained: Yes Systems reviewed as appropriate & no additional complaints except as documented Physical Exam General General appearance: alert and in no apparent distress Head Head exam: atraumatic and normocephalic Eye Eye exam: Present PERRL ENT ENT exam: Present mucous membranes moist Neck Neck exam: Present normal inspection Chest Chest inspection: Present normal inspection and symmetric chest wall rise Respiratory Respiratory exam: Present normal lung sounds bilaterally; Absent respiratory distress Cardiovascular Cardiovascular exam: Present regular rate and normal rhythm Abdominal Exam Abdominal exam: Present soft; Absent tenderness Extremities Exam Extremities exam: Present normal inspection Back Exam Back exam: Present normal inspection; Absent tenderness Neurological Exam Neurological exam: Present alert Psychiatric Psychiatric exam: Present normal affect Skin Skin exam: Present warm and dry HEART Score HEART Score HEART Score assessment performed?: Yes History (anamnesis): Highly suspicious ECG: Normal Age: 45-65 years Risk factors: 1-2 risk factors Troponin: </= normal limit HEART Score: 4 Critical Care Critical Care Time Critical Care Time: No Medical Decision Making Mack Inquiry Pt receiving controlled substance: No Vital Signs Vital Signs: 06/01/24 13:40 06/01/24 13:46 06/01/24 13:50 Temperature 98.0 F Temperature Source Oral Pulse Rate 64 61 Pulse Rate [Left Radial] 61 Respiratory Rate 13 13 Blood Pressure 121/87 Blood Pressure [Right Arm] 121/87 Blood Pressure Mean 98 Blood Pressure Mean [Right Arm] 98 02 Sat by Pulse Oximetry 96 95 Oxygen Delivery Method Room Air 06/01/24 14:00 06/01/24 15:01 Temperature Temperature Source Pulse Rate 57 L 52 L Pulse Rate [Left Radial] Respiratory Rate 14 Blood Pressure 106/74 L 107/67 L Blood Pressure [Right Arm] Blood Pressure Mean Blood Pressure Mean [Right Arm] 02 Sat by Pulse Oximetry 91 L 95 Oxygen Delivery Method Room Air Room Air Lab Data Labs: Lab Results 06/01/24 13:40: WBC 5.2, RBC 6.82 H, Hgb 20.2 H, Hct 59.0 H, MCV 86.6, MCH 29.7, MCHC 34.3, RDW 15.0, Plt Count 164, MPV 7.3 L, Neut % (Auto) 46.9, Lymph % (Auto) 39.5, Reynolds % (Auto) 8.3, Eos % (Auto) 3.3, Baso % (Auto) 1.8, Neut # (Auto) 2.5, Lymph # (Auto) 2.1, Reynolds # (Auto) 0.4, Eos # (Auto) 0.2, Baso # (Auto) 0.1, Sodium 137, Potassium 4.5, Chloride 100, Carbon Dioxide 33 H, Anion Gap 8.5, BUN 20, Creatinine 1.10, Estimated Creat Clear 107, Estimated GFR 69, Est GFR ( Amer) 83, Glucose 131 H, Calcium 9.2, Total Bilirubin 0.8, AST 38, ALT 24, Alkaline Phosphatase 87, Troponin I < 0.01, Total Protein 7.3, Albumin 4.4, Globulin 2.9, Albumin/Globulin Ratio 1.5, HIV 1&2 Antibody Rapid Nonreactive 06/01/24 13:40 06/01/24 13:40 Response Orders (Tests/Meds): ED MEDICATIONS Generic Name Dose Route Start Last Admin Trade Name Freq PRN Reason Stop Dose Admin Sodium Chloride 10 ml 06/01/24 13:49 Sodium Chloride 0.9% 10ml Flush Syringe IV 07/01/24 13:48 NEEDED PRN Maintain IV Site Sodium Chloride 10 ml 06/01/24 14:25 06/01/24 14:26 Sodium Chloride 0.9% 10ml Syr (Rad Only) IV 07/01/24 14:24 10 ml NEEDED PRN Administration Maintain IV Site Discontinued Medications Generic Name Dose Route Start Last Admin Trade Name Freq PRN Reason Stop Dose Admin Acetaminophen 1,000 mg 06/01/24 14:12 06/01/24 14:18 Acetaminophen 500mg Tab PO 06/01/24 14:13 1,000 mg ONCE ONE Administration Aspirin 324 mg 06/01/24 14:06 06/01/24 14:10 Aspirin 81mg Chewable Tablet PO 06/01/24 14:07 324 mg ONCE ONE Administration Belladonna Alkaloids 60 ml 06/01/24 14:07 06/01/24 14:11 Belladonna Alkaloids 60 Ml Ml PO 06/01/24 14:08 60 ml ONCE ONE Administration Iopamidol 80 ml 06/01/24 14:25 06/01/24 14:26 Iopamidol-370 (76%);100ml Bottle IV 06/01/24 14:26 80 ml ONCE ONE Administration Sodium Chloride 50 ml 06/01/24 14:25 06/01/24 14:26 0.9 % Sodium Chloride 50 Ml Vial IV 06/01/24 14:26 50 ml ONCE ONE Administration ORDERS Category Date Time Status CT angio chest - dissection Stat Cat Scan 06/01/24 14:06 Completed XR chest 2V Stat Exams 06/01/24 13:49 Completed Complete Blood Count Auto Diff Stat Lab 06/01/24 13:40 Completed Comprehensive Metabolic Panel Stat Lab 06/01/24 13:40 Completed HIV (1&2) Antibody Rapid Stat Lab 06/01/24 13:40 Completed Hep C Ab with Reflex to RNA Stat Lab 06/01/24 13:40 Received Troponin I Q3H Lab 06/01/24 17:00 Ordered Troponin I Q3H Lab 06/01/24 20:00 Ordered Troponin I Stat Lab 06/01/24 13:40 Completed ECG Data Tracing #1: ECG Narrative: Independently interpreted by me rate is 61, rhythm is regular, axis is normal, no ST elevation in anatomical contiguous leads, QTc 391. MDM Narrative Medical Decision Narrative: In summary patient is a 58-year-old male past medical history described above who presents emergency department for evaluation of chest pain and back pain. Patient is hemodynamically stable nontoxic-appearing upon arrival, afebrile. Differential diagnosis includes ACS, chronic angina, noncardiac chest pain, aortic dissection, among others. Pulmonary embolism less likely given that he is anticoagulated. Workup will be conducted with hematologic labs, chest x-ray, EKG, serial troponins, CTA chest. Initial inventions include aspirin 324 mg, GI cocktail, Tylenol. Initial workup reviewed by me, polycythemia which is improved from prior evaluation, no significant leukocytosis, no critical electrolyte abnormality or ALYCIA. Initial troponin undetectably low. CTA chest no acute pathology, no evidence of pneumonia. The patient was placed in observation status at 1528. Medical necessity for observational status is serial evaluations and serial troponins. The patient was provided serial reevaluations and cardiac monitoring while awaiting results. This was pending at time of transfer of care to the oncoming physician, Dr. Andujar. [Results of testing during observation are remarkable for:]. [Because of these results I feel patient can be discharged with follow-up with their PCP versus feel patient requires admission due to]. Total time in observation was [total time].
[2024-06-01] MEDS: ASPIRIN 81MG CHEWABLE TABLET 324 MG PO (14:10)
[2024-06-01] MEDS: BELLADONNA ALKALOIDS 60 ML ML PO (14:11)
[2024-06-01 14:15] LABS: Basophils # 0.1 K/mm3 (0-0.2); Basophils % 1.8 % (0.1-2.0); Eosinophils # 0.2 K/mm3 (0.0-0.4); Eosinophils % 3.3 % (0.1-12.0); Lymphocytes # 2.1 K/mm3 (0.7-4.5); Lymphocytes % 39.5 % (10-50); Mean Corpuscular HGB Conc 34.3 g/dL (31.8-35.4); Mean Corpuscular Hemoglobin 29.7 pg (27.0-31.2); Mean Corpuscular Volume 86.6 fl (80-94); Mean Platelet Volume 7.3 fl (7.4-10.4); Monocytes # 0.4 K/mm3 (0.1-1.0); Monocytes % 8.3 % (1.7-9.3); Neutrophils # 2.5 K/mm3 (1.8-7.8); Neutrophils % 46.9 % (37.0-80.0); Platelet Count 164 K/mm3 (142-424); Red Blood Count 6.82 M/mm3 (4.60-6.20); White Blood Count 5.2 K/mm3 (4.8-10.8)
[2024-06-01] MEDS: ACETAMINOPHEN 500MG TAB 1000 MG PO (14:18)
[2024-06-01 14:19] LABS: Hemoglobin 20.2 g/dL (14.1-18.0)
[2024-06-01] MEDS: SODIUM CHLORIDE 0.9% 10ML SYR (RAD ONLY) 10 ML IV (14:26)
[2024-06-01] MEDS: IOPAMIDOL-370 (76%);100ML BOTTLE 80 ML IV (14:26)
[2024-06-01] MEDS: 0.9 % SODIUM CHLORIDE 50 ML VIAL IV (14:26)
[2024-06-01 14:32] LABS: Albumin Level 4.4 g/dl (3.5-5.0); Chloride 100 mmol/L (98-107); Potassium 4.5 mmoL/L (3.5-5.1); Sodium 137 mmol/L (136-145)
[2024-06-01 14:35] LABS: Alanine Aminotransferase 24 U/L (12-78); Albumin/Globulin Ratio 1.5 (1.1-1.8); Alkaline Phosphatase 87 U/L (38-126); Anion Gap 8.5 mEq/L (5-15); Aspartate Amino Transferase 38 U/L (17-59); Bilirubin,Total 0.8 mg/dl (0.2-1.3); Blood Urea Nitrogen 20 mg/dl (9-20); Calcium 9.2 mg/dl (8.4-10.2); Carbon Dioxide 33 mmol/L (22.0-30.0); Creatinine Clearance Estimated 107 mL/min (50-200); Estimated Glomerular Filt Rate 69 ml/min (>60); GFR (African American) 83 ML/MIN (>60); Globulin 2.9 g/dL (1.3-3.2); Glucose 131 mg/dl (74-100); Total Protein,Serum 7.3 g/dl (6.3-8.2)
[2024-06-01 14:55] LABS: HIV (1&2) Antibody Rapid NONREACTIVE (NONREACTIVE)
[2024-06-01 15:11] LABS: Troponin I < 0.01 ng/ml (0.00-0.034)
[2024-06-01 16:54] LABS: Troponin I < 0.01 ng/ml (0.00-0.034)
[2024-06-03 09:22] LABS: HCV Ab Non Reactive (Non Reactive)
== END 2024-06-01 17:06 | disposition home or self-care (01) ==
PROVIDERS: Emergency Medicine; Emergency Provider Emergency Medicine; PCP Family Medicine
DX: R07.9 Chest pain, unspecified (principal)
CPT/HCPCS: 71046; 71275; 80053; 84484; 85025; 86803; 87389; 93005; 99285; Q9967

== ENCOUNTER 2024-11-01 14:29 | Emergency (ER) | payer MEDICAID, SELFPAY ==
[2024-11-01 14:35] VITALS: BP 133/78; PULSE 60; RESP 18; TEMP 36.7; O2SAT 97; BMI 33.0
[2024-11-01 14:37] VITALS: BP 133/78; PULSE 59; O2SAT 96
--- NOTE | 2024-11-01 14:45 | ECG_ITS ---
APPROVED REPORT Exam: Resting ECG HR:58 bpm ECG Measurements Heart Rate 58 AXES CA 173 P -52 QRSd 90 QRS 14 QT 410 T 51 QTc 406 Conclusion SINUS BRADYCARDIA Electronically signed by : NIEGL DICKERSON, 11/01/2024 15:27:17
--- NOTE | 2024-11-01 14:47 | CT_ITS ---
PROCEDURE INFORMATION: Exam: CT Cervical Spine Without Contrast Exam date and time: 11/01/2024 2:59 PM Age: 58 years old Clinical indication: Numbness; Additional info: Numbness to arm TECHNIQUE: Imaging protocol: Computed tomography of the cervical spine without contrast. Radiation optimization: All CT scans at this facility use at least one of these dose optimization techniques: automated exposure control; mA and/or kV adjustment per patient size (includes targeted exams where dose is matched to clinical indication); or iterative reconstruction. COMPARISON: CT ANGIO CHEST 06/01/2024 2:25 PM FINDINGS: Bones: No acute fracture identified. Straightening of normal cervical lordosis with otherwise normal alignment. Multilevel degenerative change with mild multilevel disc space narrowing, small endplate osteophytes, and mild facet arthropathy. Mild uncovertebral hypertrophy, more prominent on the right at C4-C5. Degenerative change at the anterior arch of C1 with C2. There is moderate versus severe neural foraminal narrowing at C4-C5 on the right. There otherwise does not appear to be significant neural foraminal or spinal canal stenosis. Paranasal sinuses: Minimal mucosal thickening of the inferior left maxillary sinus. Included paranasal sinuses are otherwise clear. Mastoid air cells: Mastoid air cells are predominantly clear with minimal opacification inferiorly on the left. Lungs: Lung apices are unremarkable. Soft tissues: Unremarkable. IMPRESSION: Degenerative changes of the cervical spine, findings most significant at C4-C5, with findings as detailed above.
--- NOTE | 2024-11-01 14:57 | ED_ITS ---
<Statement entered by Mildred Andujar DO - 11/01/24 15:16> I was consulted by the [facility], and we discussed the complexity of the problems being addressed. I approved the treatment and management plan for this patient's care in the emergency department, thus performing a substantive portion of the medical decision making. On my assessment of the patient, his symptoms have resolved. He complains of intermittent numbness around his elbow, does not extend all the way up to his shoulder or neck. Does not extend all the way to his fingertips. No other neurologic symptoms such as headache, visual disturbance, numbness, tingling unilateral weakness elsewhere. No known traumatic injuries. No chest pain or shortness of breath associated. I feel he likely has peripheral neuropathy of some sort, and symptoms are currently resolved. History and itself is not concerning for stroke on my assessment. I signed out care of patient to oncoming provider, Dr. Adrian, at 3pm. Mildred Andujar DO Discharge Plan Disposition Patient Disposition: Home, Self-Care Condition: Good Prescriptions Prescriptions: No Action buprenorphine-naloxone [Suboxone] 1 EACH Film 6 mg PO DAILY buspirone 5 MG Tablet 5 mg PO DAILY metoprolol succinate 100 MG Tab.Er.24h 100 mg PO DAILYDM omeprazole [address] Capsule.Dr 40 mg PO DAILY ranitidine HCl 150 MG Tablet 150 mg PO DAILY warfarin [Coumadin] 10 MG Tablet 10 mg PO DAILY amlodipine 5 MG Tablet 5 mg PO DAILY lisinopril-hydrochlorothiazide 1 EACH Tablet 1 tab PO DAILY aspirin 81 MG Tab.Chew 81 mg PO DAILY Referrals Follow up/Referrals: Provider,Referral, MD [Primary Care Provider] - See instructions Activity Restrictions/Add. Instructions Additional Instructions/Restrictions: Follow-up with primary care If symptoms return or worsen return Tylenol ibuprofen as needed Clinical Impressions Clinical Impression: Radiculopathy Qualifiers: Spinal region: cervical Qualified Code(s): M54.12 - Radiculopathy, cervical region Instructions Patient Instructions: DI for Cervical Radiculopathy Print Language Print Language: Polish Discharge ED Provider: Mildred Andujar General Adult HPI <Chandra Messer ([facility]), [employer] - Last Filed: 11/01/24 16:02> General Chief complaint: Extremity Problem,Nontraumatic Stated complaint: L arm tingles Time Seen by Provider: 11/01/24 14:44 Mode of Arrival: Ambulatory Source of Information: Patient Description of Symptoms (Recalled from ER Triage Doc. by RN): PT REPORTS NUMBNESS AND TINGLING OF LEFT ARM X 1 HOUR. REPORTS HX OF SIMILAR EPISODES IN PASSED THAT RESOLVE. DENIES ARM WEAKNESS, NO LEG DEFICITS. 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 History of Present Illness HPI narrative: 58-year-old male presents for numbness and tingling to the left arm for 1 hour. Patient states he has had similar episodes in the past but they resolved quickly. Patient denies weakness, chest pain pressure, or any defects. Related Data Home Medications ?Medication ?Instructions ?Recorded ?Confirmed warfarin 10 mg tablet (Coumadin) 10 mg PO DAILY dvt prophylaxis 09/17/17 09/28/18 amlodipine 5 mg tablet 5 mg PO DAILY blood pressure 11/08/17 09/28/18 aspirin 81 mg chewable tablet 81 mg PO DAILY heart 04/12/18 09/28/18 lisinopril 20 1 tab PO DAILY blood presure 04/12/18 09/28/18 mg-hydrochlorothiazide 12.5 mg tablet buprenorphine 4 mg-naloxone 1 mg 6 mg PO DAILY . 04/20/18 09/28/18 sublingual film (Suboxone) buspirone 5 mg tablet 5 mg PO DAILY Anxiety 09/28/18 09/28/18 metoprolol succinate 100 mg 100 mg PO DAILYDM High blood 09/28/18 09/28/18 tablet,extended release 24 hr pressure omeprazole 40 mg capsule,delayed 40 mg PO DAILY Supplement 09/28/18 09/28/18 release ranitidine HCl 150 mg tablet 150 mg PO DAILY Supplement 09/28/18 09/28/18 Allergies Allergy/AdvReac Type Severity Reaction Status Date / Time Penicillins Allergy Verified 09/28/18 20:17 [facility] <Chandra Messer ([facility]), [employer] - Last Filed: 11/01/24 16:02> [facility] Disclaimer: The information contained in this section may have been updated after the patient was seen, as this information can be updated by other users. Social History , [employer]) Smoking Status: Current every day smoker tobacco type: cigarettes packs per day: 2 second hand exposure: Yes alcohol intake: never current occupational status: employed Travel in the last 8 weeks: None housing: house caffeine: Yes Have you lived/traveled outside [place] in past 30 days?: No Contact w/someone who lives/traveled outside [place] past 30 days?: No Exposure to someone with infectious disease in past 14 days?: No Do you have a fever (greater than 100.4 F or 38 C)?: No Have you tested positive for COVID-19: No Exposed to someone with COVID-19 in past 14 days?: No Do you have a sore throat?: No Do you have a cough?: No Do you have any weakness?: No Do you have any diarrhea?: No Are you experiencing any unusual bleeding?: No Do you have any muscle aches/pain?: No Do you have any abdominal pain?: No Are you experiencing loss of taste or smell?: No Other Medical History Have you received the Flu Vaccine for this season: No Have you received the Pneumonia Vaccine: No <Chandra BuschAC[facility] UNITRobyn, [employer] - Last Filed: 11/01/24 16:02> ROS Obtained: Yes Systems reviewed as appropriate & no additional complaints except as documented Musculoskeletal Musculoskeletal: Reports numbness and Reports tingling Neurologic Neurologic: Reports system reviewed and no additional complaints, except as documented, Reports as per HPI, Reports numbness and Reports tingling <Mildred Andujar, DO - Last Filed: 11/01/24 15:16> ROS Obtained: Yes All systems reviewed & no additional complaints except as documented Physical Exam <Mildred Andujar DO - Last Filed: 11/01/24 15:16> General General appearance: alert and in no apparent distress Respiratory Respiratory exam: Present normal lung sounds bilaterally; Absent respiratory distress Cardiovascular Cardiovascular exam: Present regular rate and normal rhythm Neurological Exam Neurological exam: Present alert, oriented X3, CN II-XII intact, normal gait and reflexes normal; Absent motor sensory deficit Medical Decision Making <[facility] [employer] - Last Filed: 11/01/24 16:02> Medical Records Screening: Per USPSTF and CDC recommendations, given the prevalence of disease in our region, it is our hospital?s policy to screen for HIV and viral Hepatitis for all patients aged 18 and over and those with ongoing risk factors. Vital Signs: 11/01/24 14:35 11/01/24 14:37 11/01/24 15:45 Temperature 98.0 F Temperature Source Oral Pulse Rate 59 L 61 Pulse Rate [Apical] 60 Respiratory Rate 18 Blood Pressure 133/78 103/70 L Blood Pressure [Right Arm] 133/78 Blood Pressure Mean [Right Arm] 96 Blood Pressure Source Blood Pressure Source [Right Arm] Automatic Cuff Blood Pressure Position Blood Pressure Position [Right Arm] Sitting 02 Sat by Pulse Oximetry 97 96 95 Oxygen Delivery Method Room Air Room Air 11/01/24 16:15 Temperature 98.2 F Temperature Source Oral Pulse Rate 60 Pulse Rate [Apical] Respiratory Rate 18 Blood Pressure 108/72 L Blood Pressure [Right Arm] Blood Pressure Mean [Right Arm] Blood Pressure Source Automatic Cuff Blood Pressure Source [Right Arm] Blood Pressure Position Sitting Blood Pressure Position [Right Arm] 02 Sat by Pulse Oximetry Oxygen Delivery Method Room Air Lab Data Lab Results 11/01/24 14:45: WBC 5.9, RBC 4.96, Hgb 15.0, Hct 43.1, MCV 86.9, MCH 30.2, MCHC 34.8, RDW 12.3, Plt Count 172, MPV 9.3, Neut % (Auto) 45.5, Lymph % (Auto) 33.7, Bibb % (Auto) 13.3 H, Eos % (Auto) 6.0, Baso % (Auto) 1.2, Neut # (Auto) 2.7, Lymph # (Auto) 2.0, Bibb # (Auto) 0.8, Eos # (Auto) 0.4, Baso # (Auto) 0.1, Sodium 136, Potassium 4.3, Chloride 99, Carbon Dioxide 31 H, Anion Gap 10.3, BUN 14, Creatinine 0.90, Estimated Creat Clear 130, Estimated GFR 86, Est GFR ( Amer) 105, Glucose 120 H, Calcium 8.7, Total Bilirubin 0.8, AST 31, ALT 24, Alkaline Phosphatase 96, Troponin I < 0.01, Total Protein 7.0, Albumin 3.9, Globulin 3.1, Albumin/Globulin Ratio 1.3, Vitamin B12 521 11/01/24 14:45 11/01/24 14:45 Orders (Tests/Meds): ORDERS Category Date Time Status CT cervical spine wo con Stat Cat Scan 11/01/24 14:47 Completed CBC w/Auto Diff [Complete Blood Count Auto Diff] Stat Lab 11/01/24 14:45 Completed CMP [Comprehensive Metabolic Panel] Stat Lab 11/01/24 14:45 Completed Trop I [Troponin I] Stat Lab 11/01/24 14:45 Completed Vitamin B12 Stat Lab 11/01/24 14:45 Completed Medical Decision Narrative: In summary patient is a 58-year-old male who presents to the emergency department for evaluation of left arm tingling and mild. Patient is hemodynamically stable upon arrival, afebrile. Unremarkable physical exam. Differential diagnosis includes neuropathy, radiculopathy. Initial workup will be conducted with chest pain workup, CT. Initial inventions include CT, EKG, labs. Initial workup reviewed by nj CT, EKG, labs,. Upon repeat evaluation patient symptoms has completely resolved patient states no symptoms at this time. Given this appropriate for discharge at this time follow-up with primary care <Mildred Andujar, DO - Last Filed: 11/01/24 15:16> [facility] Inquiry Pt receiving controlled substance: No Vital Signs: 11/01/24 14:35 11/01/24 14:37 11/01/24 15:45 Temperature 98.0 F Temperature Source Oral Pulse Rate 59 L 61 Pulse Rate [Apical] 60 Respiratory Rate 18 Blood Pressure 133/78 103/70 L Blood Pressure [Right Arm] 133/78 Blood Pressure Mean [Right Arm] 96 Blood Pressure Source Blood Pressure Source [Right Arm] Automatic Cuff Blood Pressure Position Blood Pressure Position [Right Arm] Sitting 02 Sat by Pulse Oximetry 97 96 95 Oxygen Delivery Method Room Air Room Air 11/01/24 16:15 Temperature 98.2 F Temperature Source Oral Pulse Rate 60 Pulse Rate [Apical] Respiratory Rate 18 Blood Pressure 108/72 L Blood Pressure [Right Arm] Blood Pressure Mean [Right Arm] Blood Pressure Source Automatic Cuff Blood Pressure Source [Right Arm] Blood Pressure Position Sitting Blood Pressure Position [Right Arm] 02 Sat by Pulse Oximetry Oxygen Delivery Method Room Air Lab Data Lab Results 11/01/24 14:45: WBC 5.9, RBC 4.96, Hgb 15.0, Hct 43.1, MCV 86.9, MCH 30.2, MCHC 34.8, RDW 12.3, Plt Count 172, MPV 9.3, Neut % (Auto) 45.5, Lymph % (Auto) 33.7, Bibb % (Auto) 13.3 H, Eos % (Auto) 6.0, Baso % (Auto) 1.2, Neut # (Auto) 2.7, Lymph # (Auto) 2.0, Bibb # (Auto) 0.8, Eos # (Auto) 0.4, Baso # (Auto) 0.1, Sodium 136, Potassium 4.3, Chloride 99, Carbon Dioxide 31 H, Anion Gap 10.3, BUN 14, Creatinine 0.90, Estimated Creat Clear 130, Estimated GFR 86, Est GFR ( Amer) 105, Glucose 120 H, Calcium 8.7, Total Bilirubin 0.8, AST 31, ALT 24, Alkaline Phosphatase 96, Troponin I < 0.01, Total Protein 7.0, Albumin 3.9, Globulin 3.1, Albumin/Globulin Ratio 1.3, Vitamin B12 521 Orders (Tests/Meds): ORDERS Category Date Time Status CT cervical spine wo con Stat Cat Scan 11/01/24 14:47 Completed CBC w/Auto Diff [Complete Blood Count Auto Diff] Stat Lab 11/01/24 14:45 Completed CMP [Comprehensive Metabolic Panel] Stat Lab 11/01/24 14:45 Completed Trop I [Troponin I] Stat Lab 11/01/24 14:45 Completed Vitamin B12 Stat Lab 11/01/24 14:45 Completed ECG Data Tracing #1: I reviewed this ECG and interpreted as documented below: Sinus bradycardia with a ventricular rate of 58. No acute ST changes concerning for ischemia. Normal axis and intervals. ECG initial impression date: 11/01/24 ECG initial impression time: 14:38 <Song Adrian MD - Last Filed: 11/02/24 19:29> Vital Signs: 11/01/24 14:35 11/01/24 14:37 11/01/24 15:45 Temperature 98.0 F Temperature Source Oral Pulse Rate 59 L 61 Pulse Rate [Apical] 60 Respiratory Rate 18 Blood Pressure 133/78 103/70 L Blood Pressure [Right Arm] 133/78 Blood Pressure Mean [Right Arm] 96 Blood Pressure Source Blood Pressure Source [Right Arm] Automatic Cuff Blood Pressure Position Blood Pressure Position [Right Arm] Sitting 02 Sat by Pulse Oximetry 97 96 95 Oxygen Delivery Method Room Air Room Air 11/01/24 16:15 Temperature 98.2 F Temperature Source Oral Pulse Rate 60 Pulse Rate [Apical] Respiratory Rate 18 Blood Pressure 108/72 L Blood Pressure [Right Arm] Blood Pressure Mean [Right Arm] Blood Pressure Source Automatic Cuff Blood Pressure Source [Right Arm] Blood Pressure Position Sitting Blood Pressure Position [Right Arm] 02 Sat by Pulse Oximetry Oxygen Delivery Method Room Air Lab Data Lab Results 11/01/24 14:45: WBC 5.9, RBC 4.96, Hgb 15.0, Hct 43.1, MCV 86.9, MCH 30.2, MCHC 34.8, RDW 12.3, Plt Count 172, MPV 9.3, Neut % (Auto) 45.5, Lymph % (Auto) 33.7, Bibb % (Auto) 13.3 H, Eos % (Auto) 6.0, Baso % (Auto) 1.2, Neut # (Auto) 2.7, Lymph # (Auto) 2.0, Bibb # (Auto) 0.8, Eos # (Auto) 0.4, Baso # (Auto) 0.1, Sodium 136, Potassium 4.3, Chloride 99, Carbon Dioxide 31 H, Anion Gap 10.3, BUN 14, Creatinine 0.90, Estimated Creat Clear 130, Estimated GFR 86, Est GFR ( Amer) 105, Glucose 120 H, Calcium 8.7, Total Bilirubin 0.8, AST 31, ALT 24, Alkaline Phosphatase 96, Troponin I < 0.01, Total Protein 7.0, Albumin 3.9, Globulin 3.1, Albumin/Globulin Ratio 1.3, Vitamin B12 521 Orders (Tests/Meds): ORDERS Category Date Time Status CT cervical spine wo con Stat Cat Scan 11/01/24 14:47 Completed CBC w/Auto Diff [Complete Blood Count Auto Diff] Stat Lab 11/01/24 14:45 Completed CMP [Comprehensive Metabolic Panel] Stat Lab 11/01/24 14:45 Completed Trop I [Troponin I] Stat Lab 11/01/24 14:45 Completed Vitamin B12 Stat Lab 11/01/24 14:45 Completed Medical Decision Narrative: In summary patient is a 58-year-old male who presents to the emergency department for evaluation of left arm tingling and mild. Patient is hemodynamically stable upon arrival, afebrile. Unremarkable physical exam. Differential diagnosis includes neuropathy, radiculopathy. Initial workup will be conducted with chest pain workup, CT. Initial inventions include CT, EKG, labs. Initial workup reviewed by me CT, EKG, labs,. Upon repeat evaluation patient symptoms has completely resolved patient states no symptoms at this time. Given this appropriate for discharge at this time follow-up with primary care I was consulted by the [facility], and we discussed the complexity of the problems being addressed.I approved the treatment and management plan for this patient?s care in the Emergency Department, thus performing a substantive portion of the medical decision making.Signed, Song Adrian MD [facility] <Mildred Andujar, - Last Filed: 11/01/24 15:16> Critical Care Time Critical Care Time: No
[2024-11-01 15:08] LABS: Alanine Aminotransferase 24 U/L (12-78); Albumin Level 3.9 g/dl (3.5-5.0); Albumin/Globulin Ratio 1.3 (1.1-1.8); Alkaline Phosphatase 96 U/L (38-126); Anion Gap 10.3 mEq/L (5-15); Aspartate Amino Transferase 31 U/L (17-59); Bilirubin,Total 0.8 mg/dl (0.2-1.3); Blood Urea Nitrogen 14 mg/dl (9-20); Calcium 8.7 mg/dl (8.4-10.2); Carbon Dioxide 31 mmol/L (22.0-30.0); Chloride 99 mmol/L (98-107); Creatinine Clearance Estimated 130 mL/min (50-200); Estimated Glomerular Filt Rate 86 ml/min (>60); GFR (African American) 105 ML/MIN (>60); Globulin 3.1 g/dL (1.3-3.2); Glucose 120 mg/dl (74-100); Potassium 4.3 mmoL/L (3.5-5.1); Sodium 136 mmol/L (136-145)
[2024-11-01 15:19] LABS: Basophils # 0.1 K/mm3 (0-0.2); Basophils % 1.2 % (0.1-2.0); Eosinophils # 0.4 K/mm3 (0.0-0.4); Hematocrit 43.1 % (42.0-52.0); Lymphocytes % 33.7 % (10-50); Mean Corpuscular HGB Conc 34.8 g/dL (31.8-35.4); Mean Corpuscular Hemoglobin 30.2 pg (27.0-31.2); Mean Corpuscular Volume 86.9 fl (80-94); Mean Platelet Volume 9.3 fl (7.4-10.4); Monocytes # 0.8 K/mm3 (0.1-1.0); Monocytes % 13.3 % (1.7-9.3); Neutrophils # 2.7 K/mm3 (1.8-7.8); Neutrophils % 45.5 % (37.0-80.0); Nucleated Red Blood Cells # 0 10^3/uL; Nucleated Red Blood Cells % 0 %; Platelet Count 172 K/mm3 (142-424); Red Blood Count 4.96 M/mm3 (4.60-6.20); Red Cell Distribution Width 12.3 % (11.5-17.5); White Blood Count 5.9 K/mm3 (4.8-10.8)
[2024-11-01 15:22] LABS: Troponin I < 0.01 ng/ml (0.00-0.034)
[2024-11-01 15:45] VITALS: BP 103/70; PULSE 61; O2SAT 95
[2024-11-01 15:57] LABS: Vitamin B12 521 pg/mL (239-931)
[2024-11-01 16:15] VITALS: BP 108/72; PULSE 60; RESP 18; TEMP 36.8; O2SAT 95
== END 2024-11-01 16:15 | disposition home or self-care (01) ==
PROVIDERS: Nurse Practitioner Family; Emergency Provider Emergency Medicine
DX: M54.12 Radiculopathy, cervical region (principal); R20.2 Paresthesia of skin; R00.1 Bradycardia, unspecified
CPT/HCPCS: 99284; 72125; 80053; 82607; 84484; 85025; 93005

== ENCOUNTER 2024-11-16 16:34 | Observation (INO) | payer MEDICAID, SELFPAY ==
[2024-11-16] VITALS (10 sets, daily range): BP systolic 112–153; BP diastolic 66–101; PULSE 60–71; RESP 14–18; TEMP 36.7–36.8; O2SAT 92–96; BMI 33.5
--- NOTE | 2024-11-16 16:38 | ED_ITS ---
Discharge Plan Disposition Patient Disposition: Home, Self-Care Condition: Fair Clinical Impressions Clinical Impression: Acute kidney injury (nontraumatic), Hypomagnesemia Discharge ED Provider: Song Adrian Adult HPI <CYNTHIA Patel - Last Filed: 11/16/24 20:07> General Chief complaint: Dizziness Stated complaint: OLVERA,nausea,dizziness Time Seen by Provider: 11/16/24 16:38 History of Present Illness HPI narrative: Patient presents for evaluation of headache nausea and dizziness. Patient states for the last 2 days he has had periodic and episodic dizziness. He also feels lightheaded if he changes position bends over or stands up. He does not have a known history of cardiovascular disease but is a smoker. He is not on home O2. He also has hypertension and is on lisinopril hydrochlorothiazide carvedilol and atorvastatin and aspirin along with amlodipine. He also is on Suboxone. He also is on Coumadin for history of a DVT. 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 Denies any chest pain shortness of breath fever chills hemoptysis hematochezia melena nausea vomiting diarrhea. Related Data Home Medications ?Medication ?Instructions ?Recorded ?Confirmed warfarin 10 mg tablet (Coumadin) 10 mg PO SUMOWEFR 09/17/17 11/17/24 aspirin 81 mg chewable tablet 81 mg PO DAILY heart 04/12/18 11/16/24 lisinopril 20 1 tab PO DAILY 04/12/18 11/16/24 mg-hydrochlorothiazide 12.5 mg tablet buspirone 5 mg tablet 5 mg PO BID Anxiety 09/28/18 11/17/24 omeprazole 40 mg capsule,delayed 40 mg PO DAILY 09/28/18 11/16/24 release albuterol sulfate 90 mcg/actuation 2 puff inhalation Q4HP PRN 11/16/24 11/17/24 aerosol inhaler (Ventolin HFA) Shortness Of Breath atorvastatin 20 mg tablet 20 mg PO DAILY 11/16/24 11/16/24 carvedilol 25 mg tablet 25 mg PO DAILY 11/16/24 11/16/24 cetirizine 10 mg tablet 10 mg PO DAILY 11/16/24 11/16/24 escitalopram oxalate 20 mg tablet 20 mg PO DAILY 11/16/24 11/16/24 potassium chloride 20 mEq 20 meq PO DAILY 11/16/24 11/16/24 tablet,extended release(part/cryst) amlodipine 10 mg tablet 10 mg PO DAILY 11/17/24 11/17/24 buprenorphine 8 mg-naloxone 2 mg 1 tab sublingual DAILY 11/17/24 11/17/24 sublingual tablet warfarin 5 mg tablet 5 mg PO TUTHSA 11/17/24 11/17/24 Allergies Allergy/AdvReac Type Severity Reaction Status Date / Time cefdinir Allergy Cramping Verified 11/16/24 18:58 of the Muscles Penicillins Allergy Other Verified 11/16/24 18:58 [facility] <CYNTHIA Patel - Last Filed: 11/16/24 20:07> [facility] Disclaimer: The information contained in this section may have been updated after the patient was seen, as this information can be updated by other users. Medical History (Updated 11/16/24 @ 19:07 by Janine Chin RN) Hypertension Deep vein thrombosis (DVT) Surgical History (Updated 11/16/24 @ 19:07 by Janine Chin RN) H/O foot surgery Family History (Updated 11/16/24 @ 19:07 by Janine Chin RN) Other Family history of cancer Social History (Updated 11/16/24 @ 19:07 by Janine Chin RN) Smoking Status: Current every day smoker tobacco type: cigarettes packs per day: 2 second hand exposure: Yes alcohol intake: never current occupational status: employed Travel in the last 8 weeks?: None housing: house caffeine: Yes Have you lived/traveled outside [place] in past 30 days?: No Contact w/someone who lives/traveled outside US past 30 days?: No Exposure to someone with infectious disease in past 14 days?: No Do you have a fever (greater than 100.4 F or 38 C)?: No Have you tested positive for COVID-19?: No Exposed to someone with COVID-19 in past 14 days?: No Do you have a sore throat?: No Do you have a cough?: No Do you have any weakness?: No Are you experiencing any nausea/vomitting?: No Do you have any diarrhea?: No Are you experiencing any unusual bleeding?: No Do you have any muscle aches/pain?: No Do you have any abdominal pain?: No Are you experiencing loss of taste or smell?: No Other Medical History Have you received the Flu Vaccine for this season: No Have you received the Pneumonia Vaccine: No <CYNTHIA Patel - Last Filed: 11/16/24 20:07> ROS Obtained: Yes Systems reviewed as appropriate & no additional complaints except as documented Physical Exam <CYNTHIA Patel - Last Filed: 11/16/24 20:07> General General appearance: alert and in no apparent distress Respiratory Respiratory exam: Present normal lung sounds bilaterally Cardiovascular Cardiovascular exam: Present regular rate Neurological Exam Neurological exam: Present alert and oriented X3 Medical Decision Making <CYNTHIA Patel - Last Filed: 11/16/24 20:07> Medical Records Medical records reviewed: Yes I reviewed the patient's medical records. Screening: Per USPSTF and CDC recommendations, given the prevalence of disease in our region, it is our hospital?s policy to screen for HIV and viral Hepatitis for all patients aged 18 and over and those with ongoing risk factors. Mack Inquiry Pt receiving controlled substance: No Vital Signs: 11/16/24 16:39 11/16/24 16:40 11/16/24 16:42 Temperature Temperature Source Pulse Rate 71 68 62 Pulse Rate [Radial] Respiratory Rate Blood Pressure 153/101 H 152/86 H 142/81 H Blood Pressure [Right Arm] Blood Pressure Mean [Right Arm] Blood Pressure Source Blood Pressure Source [Right Arm] Blood Pressure Position Blood Pressure Position [Right Arm] 02 Sat by Pulse Oximetry 95 96 96 Oxygen Delivery Method 11/16/24 16:43 11/16/24 17:01 11/16/24 17:30 Temperature 98.3 F Temperature Source Oral Pulse Rate 63 60 Pulse Rate [Radial] 66 Respiratory Rate 18 Blood Pressure 123/67 112/66 Blood Pressure [Right Arm] 153/101 H Blood Pressure Mean [Right Arm] 118 Blood Pressure Source Blood Pressure Source [Right Arm] Automatic Cuff Blood Pressure Position Blood Pressure Position [Right Arm] Sitting 02 Sat by Pulse Oximetry 96 95 92 L Oxygen Delivery Method Room Air Room Air 11/16/24 18:00 11/16/24 18:42 Temperature 98.0 F Temperature Source Oral Pulse Rate 62 62 Pulse Rate [Radial] Respiratory Rate 18 Blood Pressure 121/78 121/78 Blood Pressure [Right Arm] Blood Pressure Mean [Right Arm] Blood Pressure Source Automatic Cuff Blood Pressure Source [Right Arm] Blood Pressure Position Sitting Blood Pressure Position [Right Arm] 02 Sat by Pulse Oximetry 92 L Oxygen Delivery Method Room Air Room Air Lab Data Lab results reviewed: Yes I reviewed the patient's lab results. Lab Results 11/16/24 16:50: WBC 6.3, RBC 4.93, Hgb 15.3, Hct 42.0, MCV 85.2, MCH 31.0, MCHC 36.4 H, RDW 12.0, Plt Count 170, MPV 9.3, Neut % (Auto) 58.2, Lymph % (Auto) 29.0, [place] % (Auto) 7.0, Eos % (Auto) 4.3, Baso % (Auto) 1.3, Neut # (Auto) 3.7, Lymph # (Auto) 1.8, [place] # (Auto) 0.4, Eos # (Auto) 0.3, Baso # (Auto) 0.1, Sodium Cancelled 11/16/24 16:50: Sodium 135 L, Potassium Cancelled 11/16/24 16:50: Potassium 4.6, Chloride Cancelled 11/16/24 16:50: Chloride 103, Carbon Dioxide Cancelled 11/16/24 16:50: Carbon Dioxide 25, Anion Gap Cancelled 11/16/24 16:50: Anion Gap 11.6, BUN Cancelled 11/16/24 16:50: BUN 12, Creatinine Cancelled 11/16/24 16:50: Creatinine 0.90, Estimated Creat Clear Cancelled 11/16/24 16:50: Estimated Creat Clear 133, Estimated GFR Cancelled 11/16/24 16:50: Estimated GFR 86, Est GFR ( Amer) Cancelled 11/16/24 16:50: Est GFR ( Amer) 105, Glucose Cancelled 11/16/24 16:50: Glucose 155 H, Hemoglobin A1c 5.5, Calcium Cancelled 11/16/24 16:50: Calcium 8.8, Phosphorus 2.8, Magnesium 1.4 L, Total Bilirubin Cancelled 11/16/24 16:50: Total Bilirubin 0.7, AST Cancelled 11/16/24 16:50: AST 38, ALT Cancelled 11/16/24 16:50: ALT 28, Alkaline Phosphatase Cancelled 11/16/24 16:50: Alkaline Phosphatase 82, Total Creatine Kinase 72, Troponin I Cancelled 11/16/24 16:50: Troponin I < 0.01, NT-Pro-B Natriuret Pep 248 H, Total Protein Cancelled 11/16/24 16:50: Total Protein 6.6, Albumin Cancelled 11/16/24 16:50: Albumin 4.0, Globulin Cancelled 11/16/24 16:50: Globulin 2.6, Albumin/Globulin Ratio Cancelled 11/16/24 16:50: Albumin/Globulin Ratio 1.5, TSH 1.69, Free T4 Index 2.4 L, Thyroxine (T4) 7.5, T3 Uptake 32 11/16/24 17:22: Urine Color Yellow, Urine Appearance Clear, Urine pH 6.0, Ur Specific [place] 1.020, Urine Protein Negative, Urine Glucose (UA) Negative, Urine Ketones Negative, Urine Blood Negative, Urine Nitrate Negative, Urine Bilirubin Negative, Urine Urobilinogen 0.2, Ur Leukocyte Esterase Negative, Urine RBC None, Urine WBC 3-5, Ur Squamous Epith Cells None, Urine Bacteria None, Hyaline Casts 3-5, Fine Granular Casts Occasional 11/17/24 05:21 11/17/24 08:14 Orders (Tests/Meds): ED MEDICATIONS Discontinued Medications Generic Name Dose Route Start Last Admin Trade Name Freq PRN Reason Stop Dose Admin Acetaminophen 650 mg 11/16/24 18:47 11/16/24 20:18 Acetaminophen 325mg Tab PO 12/16/24 18:46 650 mg Q4HP PRN Administration Fever or Mild Pain (1-3) Albuterol/Ipratropium 3 ml 11/16/24 19:47 Ipratropium/Albuterol 3 Ml Neb IH 12/16/24 19:46 Q4HP PRN Shortness Of Breath Buprenorphine/Naloxone 1 each 11/17/24 09:00 Buprenorphine/Naloxone 8mg/2mg Odt SL 12/17/24 08:59 DAILY JOSEPHINE Sodium Chloride 1,000 mls @ 999 mls/hr 11/16/24 16:45 11/16/24 17:00 Sod Chlor 0.9% 1000ml Bag IV 11/16/24 17:45 999 mls/hr .Q1H1M ONE Administration Lactated Ringer's 1,000 mls @ 150 mls/hr 11/16/24 19:00 11/17/24 02:24 Lactated Ringer's 1000 Ml Bag IV 12/16/24 18:59 150 mls/hr .Q6H40M JOSEPHINE Administration Magnesium Sulfate 2 gm in 50 mls @ 50 mls/hr 11/17/24 02:30 11/17/24 05:17 Magnesium Sulfate 2gm/50ml Premix IV 11/17/24 05:29 50 mls/hr Q1H JOSEPHINE Administration Nicotine 21 mg 11/16/24 18:47 Nicotine 21mg/24hr Patch TD 12/16/24 18:46 DAILYP PRN Nicotine Cravings Ondansetron HCl 4 mg 11/16/24 16:46 11/16/24 17:00 Ondansetron 4mg/2ml Vial IV 11/16/24 16:47 4 mg ONCE ONE Administration Ondansetron HCl 4 mg 11/16/24 18:47 Ondansetron 4mg/2ml Vial IV 12/16/24 18:46 Q6HP PRN Nausea Pantoprazole Sodium 40 mg 11/16/24 21:00 11/16/24 20:18 Pantoprazole 40mg Tablet PO 12/16/24 20:59 40 mg HS JOSEPHINE Administration Sodium Chloride 10 ml 11/16/24 18:47 Sodium Chloride 0.9% 10ml Flush Syringe IV 12/16/24 18:46 NEEDED PRN Maintain IV Site ORDERS Category Date Time Status Chest XR 2 view (NOT portable) [XR chest 2V] Stat Exams 11/16/24 16:46 Completed BNP [NT Pro Brain Natriuretic Pep.] Stat Lab 11/16/24 16:50 Completed CBC w/Auto Diff [Complete Blood Count Auto Diff] Stat Lab 11/16/24 16:50 Completed CK [Creatine Kinase] Stat Lab 11/16/24 16:50 Completed Complete Blood Count Auto Diff AMLAB Lab 11/17/24 05:21 Completed Comprehensive Metabolic Panel AMLAB Lab 11/17/24 05:21 Completed Full Resp Panel w/COVID ([facility]) Routine Lab 11/16/24 19:41 Completed Hemoglobin A1C Stat Lab 11/16/24 16:50 Completed Lipid Panel AMLAB Lab 11/17/24 05:21 Completed Magnesium AMLAB Lab 11/17/24 05:21 Completed Magnesium Stat Lab 11/16/24 16:50 Completed PHOS [Phosphorous] AMLAB Lab 11/17/24 05:21 Completed PHOS [Phosphorous] Routine Lab 11/16/24 16:50 Completed Thyroid Panel Stat Lab 11/16/24 16:50 Completed Troponin I Q3H Lab 11/16/24 19:50 Completed Troponin I Q3H Lab 11/16/24 23:00 Completed UA [Urinalysis and Microscopic] Stat Lab 11/16/24 17:22 Completed Medical Decision Narrative: In summary patient is a 58-year-old male who presents to the emergency department for evaluation of headache nausea and dizziness. Patient is slightly hypertensive on arrival with a blood pressure 153/101 heart rate 71 normal sinus rhythm on the bedside monitor breathing 18 times a minute satting at 95% on room air upon arrival, with a temperature of 98.3. Physical exam is remarkable for Jeannie Coma Score 15 patient is awake alert and oriented person place circumstance cranials 2 through 12 intact grossly to exam patient has no nuchal rigidity or meningeal signs has full range of motion of C-spine. Exam is chest reveals symmetric rise and fall without increased work of breathing present to critical bilateral to the bases without adventitious sounds. Cardiovascular S1- S2 regular rate rhythm without murmurs gallops rubs or thrills no dependent edema noted. Examination abdomen feels to be soft nontender no rebound or guarding no rigidity. Bowel sounds normoactive. Patient is neurovascular intact distally in all 4 extremities he moves all 4 extremities ambulates in the ER with normal gait and station is no focal neurologic deficits.. Differential diagnosis includes viral syndrome versus kidney injury versus electrolyte abnormality versus ACS etc. Initial workup will be conducted with hematologic labs plain film chest x-ray D-dimer twelve-lead EKG urinalysis. Initial interventions include crystalloid bolus Toradol Tylenol Zofran. Initial workup reviewed by me and his hematologic labs are significant for normal white count normal H&H with no neutrophilic shift, chemistry shows a CO2 of 19 and anion gap of 7 a BUN of 52 and creatinine of 3.9 up from a baseline of around 1 and GFR of 16 serum glucose of 274 hemoglobin A1c of 5.5 and magnesium of 1.4 troponin less than 0.01 NT proBNP of 248 and a bland urinalysis. On formal interpretation of his plain film chest x-ray shows no acute processes prior to radiology read. Please see final read for formal interpretation.. Given his acute kidney injury and hyperglycemia without diabetes I had an interactive discussion with hospital medicine regarding patient presentation EPPS and management. I believe patient needs ongoing fluid resuscitation and trending of his creatinine along with magnesium repletion which have started in the ER as patient is still able to urinate normally.. Hospital medicine is agreeable for admission for further evaluation and care. <Song Adrian MD - Last Filed: 11/18/24 20:29> Vital Signs: 11/16/24 16:39 11/16/24 16:40 11/16/24 16:42 Temperature Temperature Source Pulse Rate 71 68 62 Pulse Rate [Radial] Respiratory Rate Blood Pressure 153/101 H 152/86 H 142/81 H Blood Pressure [Right Arm] Blood Pressure Mean [Right Arm] Blood Pressure Source Blood Pressure Source [Right Arm] Blood Pressure Position Blood Pressure Position [Right Arm] 02 Sat by Pulse Oximetry 95 96 96 Oxygen Delivery Method 11/16/24 16:43 11/16/24 17:01 11/16/24 17:30 Temperature 98.3 F Temperature Source Oral Pulse Rate 63 60 Pulse Rate [Radial] 66 Respiratory Rate 18 Blood Pressure 123/67 112/66 Blood Pressure [Right Arm] 153/101 H Blood Pressure Mean [Right Arm] 118 Blood Pressure Source Blood Pressure Source [Right Arm] Automatic Cuff Blood Pressure Position Blood Pressure Position [Right Arm] Sitting 02 Sat by Pulse Oximetry 96 95 92 L Oxygen Delivery Method Room Air Room Air 11/16/24 18:00 11/16/24 18:42 Temperature 98.0 F Temperature Source Oral Pulse Rate 62 62 Pulse Rate [Radial] Respiratory Rate 18 Blood Pressure 121/78 121/78 Blood Pressure [Right Arm] Blood Pressure Mean [Right Arm] Blood Pressure Source Automatic Cuff Blood Pressure Source [Right Arm] Blood Pressure Position Sitting Blood Pressure Position [Right Arm] 02 Sat by Pulse Oximetry 92 L Oxygen Delivery Method Room Air Room Air Lab Data Lab Results 11/16/24 16:50: WBC 6.3, RBC 4.93, Hgb 15.3, Hct 42.0, MCV 85.2, MCH 31.0, MCHC 36.4 H, RDW 12.0, Plt Count 170, MPV 9.3, Neut % (Auto) 58.2, Lymph % (Auto) 29.0, [place] % (Auto) 7.0, Eos % (Auto) 4.3, Baso % (Auto) 1.3, Neut # (Auto) 3.7, Lymph # (Auto) 1.8, [place] # (Auto) 0.4, Eos # (Auto) 0.3, Baso # (Auto) 0.1, Sodium Cancelled 11/16/24 16:50: Sodium 135 L, Potassium Cancelled 11/16/24 16:50: Potassium 4.6, Chloride Cancelled 11/16/24 16:50: Chloride 103, Carbon Dioxide Cancelled 11/16/24 16:50: Carbon Dioxide 25, Anion Gap Cancelled 11/16/24 16:50: Anion Gap 11.6, BUN Cancelled 11/16/24 16:50: BUN 12, Creatinine Cancelled 11/16/24 16:50: Creatinine 0.90, Estimated Creat Clear Cancelled 11/16/24 16:50: Estimated Creat Clear 133, Estimated GFR Cancelled 11/16/24 16:50: Estimated GFR 86, Est GFR ( Amer) Cancelled 11/16/24 16:50: Est GFR ( Amer) 105, Glucose Cancelled 11/16/24 16:50: Glucose 155 H, Hemoglobin A1c 5.5, Calcium Cancelled 11/16/24 16:50: Calcium 8.8, Phosphorus 2.8, Magnesium 1.4 L, Total Bilirubin Cancelled 11/16/24 16:50: Total Bilirubin 0.7, AST Cancelled 11/16/24 16:50: AST 38, ALT Cancelled 11/16/24 16:50: ALT 28, Alkaline Phosphatase Cancelled 11/16/24 16:50: Alkaline Phosphatase 82, Total Creatine Kinase 72, Troponin I Cancelled 11/16/24 16:50: Troponin I < 0.01, NT-Pro-B Natriuret Pep 248 H, Total Protein Cancelled 11/16/24 16:50: Total Protein 6.6, Albumin Cancelled 11/16/24 16:50: Albumin 4.0, Globulin Cancelled 11/16/24 16:50: Globulin 2.6, Albumin/Globulin Ratio Cancelled 11/16/24 16:50: Albumin/Globulin Ratio 1.5, TSH 1.69, Free T4 Index 2.4 L, Thyroxine (T4) 7.5, T3 Uptake 32 11/16/24 17:22: Urine Color Yellow, Urine Appearance Clear, Urine pH 6.0, Ur Specific [place] 1.020, Urine Protein Negative, Urine Glucose (UA) Negative, Urine Ketones Negative, Urine Blood Negative, Urine Nitrate Negative, Urine Bilirubin Negative, Urine Urobilinogen 0.2, Ur Leukocyte Esterase Negative, Urine RBC None, Urine WBC 3-5, Ur Squamous Epith Cells None, Urine Bacteria None, Hyaline Casts 3-5, Fine Granular Casts Occasional Orders (Tests/Meds): ED MEDICATIONS Discontinued Medications Generic Name Dose Route Start Last Admin Trade Name Freq PRN Reason Stop Dose Admin Acetaminophen 650 mg 11/16/24 18:47 11/16/24 20:18 Acetaminophen 325mg Tab PO 12/16/24 18:46 650 mg Q4HP PRN Administration Fever or Mild Pain (1-3) Albuterol/Ipratropium 3 ml 11/16/24 19:47 Ipratropium/Albuterol 3 Ml Neb IH 12/16/24 19:46 Q4HP PRN Shortness Of Breath Buprenorphine/Naloxone 1 each 11/17/24 09:00 Buprenorphine/Naloxone 8mg/2mg Odt SL 12/17/24 08:59 DAILY JOSEPHINE Sodium Chloride 1,000 mls @ 999 mls/hr 11/16/24 16:45 11/16/24 17:00 Sod Chlor 0.9% 1000ml Bag IV 11/16/24 17:45 999 mls/hr .Q1H1M ONE Administration Lactated Ringer's 1,000 mls @ 150 mls/hr 11/16/24 19:00 11/17/24 02:24 Lactated Ringer's 1000 Ml Bag IV 12/16/24 18:59 150 mls/hr .Q6H40M JOSEPHINE Administration Magnesium Sulfate 2 gm in 50 mls @ 50 mls/hr 11/17/24 02:30 11/17/24 05:17 Magnesium Sulfate 2gm/50ml Premix IV 11/17/24 05:29 50 mls/hr Q1H JOSEPHINE Administration Nicotine 21 mg 11/16/24 18:47 Nicotine 21mg/24hr Patch TD 12/16/24 18:46 DAILYP PRN Nicotine Cravings Ondansetron HCl 4 mg 11/16/24 16:46 11/16/24 17:00 Ondansetron 4mg/2ml Vial IV 11/16/24 16:47 4 mg ONCE ONE Administration Ondansetron HCl 4 mg 11/16/24 18:47 Ondansetron 4mg/2ml Vial IV 12/16/24 18:46 Q6HP PRN Nausea Pantoprazole Sodium 40 mg 11/16/24 21:00 11/16/24 20:18 Pantoprazole 40mg Tablet PO 12/16/24 20:59 40 mg HS JOSEPHINE Administration Sodium Chloride 10 ml 11/16/24 18:47 Sodium Chloride 0.9% 10ml Flush Syringe IV 12/16/24 18:46 NEEDED PRN Maintain IV Site ORDERS Category Date Time Status Chest XR 2 view (NOT portable) [XR chest 2V] Stat Exams 11/16/24 16:46 Completed BNP [NT Pro Brain Natriuretic Pep.] Stat Lab 11/16/24 16:50 Completed CBC w/Auto Diff [Complete Blood Count Auto Diff] Stat Lab 11/16/24 16:50 Completed CK [Creatine Kinase] Stat Lab 11/16/24 16:50 Completed Complete Blood Count Auto Diff AMLAB Lab 11/17/24 05:21 Completed Comprehensive Metabolic Panel AMLAB Lab 11/17/24 05:21 Completed Full Resp Panel w/COVID ([facility]) Routine Lab 11/16/24 19:41 Completed Hemoglobin A1C Stat Lab 11/16/24 16:50 Completed Lipid Panel AMLAB Lab 11/17/24 05:21 Completed Magnesium AMLAB Lab 11/17/24 05:21 Completed Magnesium Stat Lab 11/16/24 16:50 Completed PHOS [Phosphorous] AMLAB Lab 11/17/24 05:21 Completed PHOS [Phosphorous] Routine Lab 11/16/24 16:50 Completed Thyroid Panel Stat Lab 11/16/24 16:50 Completed Troponin I Q3H Lab 11/16/24 19:50 Completed Troponin I Q3H Lab 11/16/24 23:00 Completed UA [Urinalysis and Microscopic] Stat Lab 11/16/24 17:22 Completed Medical Decision Narrative: In summary patient is a 58-year-old male who presents to the emergency department for evaluation of headache nausea and dizziness. Patient is slightly hypertensive on arrival with a blood pressure 153/101 heart rate 71 normal sinus rhythm on the bedside monitor breathing 18 times a minute satting at 95% on room air upon arrival, with a temperature of 98.3. Physical exam is remarkable for Jeannie Coma Score 15 patient is awake alert and oriented person place circumstance cranials 2 through 12 intact grossly to exam patient has no nuchal rigidity or meningeal signs has full range of motion of C-spine. Exam is chest reveals symmetric rise and fall without increased work of breathing present to critical bilateral to the bases without adventitious sounds. Cardiovascular S1- S2 regular rate rhythm without murmurs gallops rubs or thrills no dependent edema noted. Examination abdomen feels to be soft nontender no rebound or guarding no rigidity. Bowel sounds normoactive. Patient is neurovascular intact distally in all 4 extremities he moves all 4 extremities ambulates in the ER with normal gait and station is no focal neurologic deficits.. Differential diagnosis includes viral syndrome versus kidney injury versus electrolyte abnormality versus ACS etc. Initial workup will be conducted with hematologic labs plain film chest x-ray D-dimer twelve-lead EKG urinalysis. Initial interventions include crystalloid bolus Toradol Tylenol Zofran. Initial workup reviewed by me and his hematologic labs are significant for normal white count normal H&H with no neutrophilic shift, chemistry shows a CO2 of 19 and anion gap of 7 a BUN of 52 and creatinine of 3.9 up from a baseline of around 1 and GFR of 16 serum glucose of 274 hemoglobin A1c of 5.5 and magnesium of 1.4 troponin less than 0.01 NT proBNP of 248 and a bland urinalysis. On formal interpretation of his plain film chest x-ray shows no acute processes prior to radiology read. Please see final read for formal interpretation.. Given his acute kidney injury and hyperglycemia without diabetes I had an interactive discussion with hospital medicine regarding patient presentation EPPS and management. I believe patient needs ongoing fluid resuscitation and trending of his creatinine along with magnesium repletion which have started in the ER as patient is still able to urinate normally.. Hospital medicine is agreeable for admission for further evaluation and care. I was consulted by the [facility], and we discussed the complexity of the problems being addressed.I approved the treatment and management plan for this patient?s care in the Emergency Department, thus performing a substantive portion of the medical decision making.Signed, Song Adrian MD MBA Critical Care <CYNTHIA Patel - Last Filed: 11/16/24 20:07> Critical Care Time Critical Care Time: Yes Attestation: On 11/16/24, the high probability of a clinically significant, sudden or life threatening deterioration of the following system(s) required my full and direct attention, intervention and personal management. The time I documented below is in addition to time spent performing reported procedures but includes the following listed in this critical care notation. Total Time Total Critical Care Time: 35
--- NOTE | 2024-11-16 16:43 | ECG_ITS ---
APPROVED REPORT Exam: Resting ECG HR:60 bpm ECG Measurements Heart Rate 60 AXES MI 170 P -30 QRSd 92 QRS 23 QT 427 T 51 QTc 429 Conclusion SINUS RHYTHM LOW QRS VOLTAGE IN EXTREMITY LEADS [QRS DEFLECTION < 0.5 mV IN LIMB LEADS] BORDERLINE ECG Electronically signed by : SIMONA TERESA, 11/16/2024 23:13:10
--- NOTE | 2024-11-16 16:46 | XR_ITS ---
PROCEDURE INFORMATION: Exam: XR Chest Exam date and time: 11/16/2024 4:43 PM Age: 58 years old Clinical indication: Other: Dizziness and lightheadedness TECHNIQUE: Imaging protocol: Radiologic exam of the chest. Views: 2 views. COMPARISON: 1. CT ANGIO CHEST 06/01/2024 2:25 PM 2. CR XR CHEST 2V 06/01/2024 1:56 PM FINDINGS: Lungs: Unremarkable. No consolidation. Pleural spaces: Unremarkable. No pleural effusion. No pneumothorax. Heart/Mediastinum: Unremarkable. No cardiomegaly. Bones/joints: Unremarkable. IMPRESSION: Stable chest x-ray with no acute disease.
--- OUTSIDE RECORDS SUMMARY | 2024-11-16 16:46 | XMS_ITS | Continuity of Care Document ---
Author Organization [facility] Phone Care Team Providers Care Gameroom Technician Name Role Phone DOMINGA WHYTE Primary Care DANNIE KILGORE Unavailable DANNIE KILGORE Admitting DANNIE KILGORE Primary Attending ALLERGIES AND ADVERSE REACTIONS ALLERGIES AND ADVERSE REACTIONS Code System Allergy Substance Adverse Reaction Date Reaction (Severity) Comment Status Reported By Updated By [id number] SNOMED CT Penicillins Adverse reaction to substance Not Specified active [id number] on July 24, 2024 2:27:56 PM UT unknown stomach med (Free Text Allergy) Adverse reaction to substance Not Specified active [id number] on July 24, 2024 2:27:57 PM [facility] FAMILY HISTORY RELATION: Father Status: Cause of : Leukemia Age at : 69 SNOMED-CT Diagnosis Age At Onset Information not available RELATION: Mother Status: LIVING SNOMED-CT Diagnosis Age At Onset Information not available RESULTS Patient: MARCELO LOPEZ Date of : 1965 4 LABORATORY RESULTS Information is not available LABORATORY NARRATIVE RESULTS Information is not available RADIOLOGY RESULTS ORDER 100: VENOUS DUPLEX LOW ER LEFT (LOINC: 69505-3) ORDER DATE: July 24, 2024 2:31:00 PM [facility] PERFORMING LAB: [address] [id number] Final Result Date: July 5:46:[address] [place] [address] Name: JESSICA ROBERTSON Exam Date: 07/24/2024 : 1965 Age 58 years Gender: M Physician: DANNIE KILGORE Facility: [facility] Facility HSV: Outpatient Exam: VENOUS DUPLEX LOWER LEFT EXAM DESCRIPTION: VENOUS DUPLEX LOWER LEFT CLINICAL HISTORY: 58 years Male, Edema COMPARISON: None. FINDINGS: Interrogated veins of the left lower extremity appear patent. IMPRESSION: Left lower extremity negative for DVT Electronically signed by: Calvin Calvillo MD 07/24/2024 12:53 PM [facility] Dictated By: CALVIN CALVILLO Transcribed By: Transcribed On: 07/24/2024 12:46 PM Electronically signed by: CALVIN CALVILLO 07/24/2024 Thank you for referring JESSICA ROBERTSON to [facility]. Legally authenticated by KARLI LARA 2024-07-24 12:46:00 PATHOLOGY NARRATIVE RESULTS Information is not available MICROBIOLOGY RESULTS No Micro Labs/Results Exist for Patient BLOOD ADMIN RESULTS Information is not available MEDICATIONS HOME MEDICATIONS Status RXNORM NDC Medication Dose Route Frequency Dates Comments Reported By Updated By Drug Treatment Unknown DISCHARGE MEDICATIONS Status RXNORM NDC Medication Dose Route Frequency Dates Comments Physician Updated By No Discharge Medication Info rmation Available INPATIENT MEDICATIONS Status RXNORM NDC Medication Dose Route Frequency Rat e Quantity Dates Comments Physician Updated By No Inpatient Medication Info rmation Available SOCIAL HISTORY SOCIAL HISTORY SNOMED-CT Social History Element Description Effective Dates Offered Cessation Comment UpdatedBy [id number] Current Tobacco smoking status Current Every Day Smoker [id number] on July 24, 2024 2:30:16 PM [facility] SOCIAL HISTORY - Gender Sex: Male SOCIAL HISTORY - Status : status i nformation is not available Intention in Next Year: intention information is not available SOCIAL HISTORY - Sexual Behavior Sexual Orientation Gender Identity SNOMED-CT Description SNO MED -CT Description Activity Level No of Partners Partner Type UpdatedBy Information is not available VITAL SIGNS PATIENT VITAL SIGNS This section displays the mo st recent value for each vital sign as of July 26, 2024 9:51:22 AM [facility] Loinc Code Vital Sign Activity Date Result Updated By 8310-5 Body temperature July 24, 2024 2:25:40 PM UT 98.3 [degF] [id number] on July 25, 2024 3:50:[place] [address]-2 Body weight Measured July 25, 2024 3:50:48 PM UTC 104.326 kg (230.0 lb) [id number] on July 25, 2024 3:50:48 PM UTC 8462-4 Diastolic blood pressure July 24, 2024 2:25:40 PM UTC 71.0 mm[Hg] [id number] on July 25, 2024 3:50:46 PM UTC 8867-4 Heart rate July 24, 2024 2:25:40 PM UTC 57 /min [id number] on July 25, 2024 3:50:46 PM UTC 11723-7 Oxygen saturation in Arterial blood by Pulse oximetry July 24, 2024 2:25:40 PM UTC 95.0 % [id number] on July 25, 2024 3:50:46 PM UTC 9279-1 Respiratory rate July 24, 2024 2:25:40 PM UTC 18 /min [id number] on July 25, 2024 3:50:46 PM UTC 8480-6 Systolic blood pressure July 24, 2024 2:25:40 PM UTC 128.0 mm[Hg] [id number] on July 25, 2024 3:50:46 PM UTC PEDIATRIC GROWTH CHART - VITAL SIGNS This section displays Head C ircumference Percentile, Weight for Length Percentile and BMI Percentile Loinc Code Pediatric Measure Age (Months) Result Updat ed By No Pediatric Growth Chart Pe rcentile Information Available. HEALTH CONCERNS Problems Concern Status Health Concern problem infor mation not available. Smoking Status Status Years Used Consumed packs p er day Health Concern smoking histo ry information not available. Family History Concern Status Health Concern family histor y information not available. ENCOUNTERS ENCOUNTER INFORMATION Reason for Visit LEG PAIN Admission July 24, 2024 2:19:00 PM UTC B [address] [id number] Discharge July 24, 2024 3:50:00 PM UTC D ISCHARGED TO HOME OR SELF CARE ENCOUNTER DIAGNOSES Notes information is not jaiden ilable. Code System Diagnosis Onset Date Diagnosis information is not available. ABSTRACT DIAGNOSES Code System Diagnosis Updated By M79.89 ICD10 OTHER SPECIFIED SOFT TISSUE DISORDERS [id number] on July 26, 2024 9:50:25 AM UTC M79.605 ICD10 PAIN IN LEFT LEG [id number] on July 26, 2024 9:50:25 AM UT I82.409 ICD10 ACUTE EMBOLISM A ND THROMBOSIS OF UNSPECIFIED DEEP VEINS OF UNSPECIFIED LOWER EXTREMITY [id number] on July 26, 2024 9:50:25 AM UT Z13.89 ICD10 ENCOUNTER FOR SC REENING FOR OTHER DISORDER [id number] on July 26, 2024 9:50:25 AM UT Z72.0 ICD10 TOBACCO USE [id number] on Rikki 2024 9:50:25 AM UT Z86.711 ICD10 PERSONAL HISTORY OF PULMONARY EMBOLISM [id number] on July 26, 2024 9:50:25 AM UT Z88.0 ICD10 ALLERGY STATUS TO PENICILLIN [id number] on July 26, 2024 9:50:25 AM [facility] CARE TEAM Care Gameroom Technician Role DOMINGA WHYTE Primary Care DANNIE KILGORE Referring DANNIE KILGORE Admitting DANNIE KILGORE Primary Attending CARE TEAM CARE cash specialist Role on Team Status Start Date End Date Update d By JAME BELLA Referring normal July 24, 2024 2:26:29 PM UT July 24, 2024 3:50:00 PM UT [id number] on July 24, 2024 2:26:29 PM [facility] JAME BELLA Attending normal July 24, 2024 2:26:29 PM UT July 24, 2024 3:50:00 PM UT [id number] on July 24, 2024 2:26:29 PM [facility] JAME BELLA Admitting normal July 24, 2024 2:26:29 PM UT July 24, 2024 3:50:00 PM UT [id number] on July 24, 2024 2:26:29 PM [facility] PATO ORR PCP normal July 24, 2024 2:19:08 PM UT July 24, 2024 3:50:00 PM UTC [id number] on July 24, 2024 2:26:29 PM [facility]
[2024-11-16] MEDS: ONDANSETRON 4MG/2ML VIAL 4 MG IV (17:00)
[2024-11-16] MEDS: 0.9 % SODIUM CHLORIDE 1000ML 1,000 ML 999 ML IV (17:00)
[2024-11-16 17:09] LABS: Magnesium 1.4 mg/dl (1.6-2.3)
[2024-11-16 17:12] LABS: Basophils # 0.1 K/mm3 (0-0.2); Basophils % 1.3 % (0.1-2.0); Eosinophils # 0.3 Kmm3 (0.0-0.4); Eosinophils % 4.3 % (0.1-12.0); Hemoglobin 15.3 g/dL (14.1-18.0); Lymphocytes # 1.8 K/mm3 (0.7-4.5); Mean Corpuscular HGB Conc 36.4 g/dL (31.8-35.4); Mean Corpuscular Volume 85.2 fl (80-94); Mean Platelet Volume 9.3 fl (7.4-10.4); Monocytes # 0.4 K/mm3 (0.1-1.0); Neutrophils # 3.7 K/mm3 (1.8-7.8); Neutrophils % 58.2 % (37.0-80.0); Nucleated Red Blood Cells # 0 10^3/uL; Nucleated Red Blood Cells % 0 %; Platelet Count 170 K/mm3 (142-424); Red Blood Count 4.93 M/mm3 (4.60-6.20); Red Cell Distribution Width-SD 37.3 fL; White Blood Count 6.3 K/mm3 (4.8-10.8)
[2024-11-16 17:19] LABS: NT Pro Brain Natriuretic Pep. 248 pg/mL (0-125)
[2024-11-16 17:25] LABS: Microscopic, Urine URINE MICROSCOPIC (MICROSCOPIC)
[2024-11-16 17:27] LABS: Appearance,Urine CLEAR (Clear); Bilirubin,Urine Negative (Negative); Blood, Urine Negative (Negative); Color,Urine YELLOW (Yellow); Glucose,Urine (UA) Negative (Negative); Ketones,Urine Negative (Negative); Leukocyte Esterase,Urine Negative (Negative); Nitrate,Urine Negative (Negative); Protein,Urine Negative (Negative); Urobilinogen,Urine 0.2 EU/dl (0.2)
[2024-11-16 17:41] LABS: Triiodothryronine (T3) Uptake 32 % (23.5-40.5)
[2024-11-16 17:42] LABS: Free Thyroxine Index 2.4 ug/dL (5.93-13.13); T4 (Thyroxine) 7.5 ug/dl (5.53-11.0)
[2024-11-16 17:45] LABS: Fine Granular Casts,Urine Occasional #/lpf (0)
--- NOTE | 2024-11-16 17:48 | PC.NURSE ---
ROUNDED ON PT, NO NEEDS AT THIS TIME. CALL LIGHT WITHIN REACH
[2024-11-16 17:55] LABS: Thyroid Stimulating Hormone 1.69 uIU/mL (0.465-4.68)
--- NOTE | 2024-11-16 18:09 | PC.NURSE ---
DON AT BEDSIDE TO UPDATE PT
[2024-11-16 18:14] LABS: Hemoglobin A1C 5.5 % (4.0-6.0)
--- NOTE | 2024-11-16 18:28 | PC.NURSE ---
JANESSA SPEAKING WITH HOSPITALIST
--- NOTE | 2024-11-16 18:32 | PC.NURSE ---
I notified the HS of the need for an admission bed to the hospitalist for ALYCIA
--- NOTE | 2024-11-16 18:37 | PC.NURSE ---
Report called to second floor
--- NOTE | 2024-11-16 18:38 | PC.NURSE ---
report called to Janine CHAMPION
--- NOTE | 2024-11-16 18:41 | PC.NURSE ---
DR VOGT AT BEDSIDE
--- NOTE | 2024-11-16 18:46 | P.HP_ITS ---
History of Present Illness *Admission Date: 11/16/24 *Reason for visit:: Weakness *History of present illness: Esvin Perales is a 58-year-old male with a medical history significant for hypertension, COPD on room air, current tobacco smoker, anxiety/depression, GERD who presents with progressive weakness over the past few days and was found to have a significant ALYCIA. Patient states not much has changed recently other than him with cutting outside over the past week. He denies nausea /vomiting/diarrhea, poor oral intake but does endorse drinking 8 patsy eights a day which is normal for him. He states he urinates quite often, thinks about a gallon a day but is also chronic. Denies profuse sweating, changes in medications, fever/chills, chest pain, shortness of breath, abdominal pain. Workup in the ED significant for creatinine 3.9, GFR 16 (creatinine baseline 1.0), AGAP 15.7, magnesium 1.4, UA with mild hyaline casts but only occasional granular casts. Given these findings, case discussed with ED provider and decision made to admit patient for acute tubular necrosis, ALYCIA, weakness. [facility] Disclaimer: The information contained in this section may have been updated after the patient was seen, as this information can be updated by other users. Medical History (Updated 11/16/24 @ 19:07 by Janine Chin RN) Hypertension Deep vein thrombosis (DVT) Surgical History (Updated 11/16/24 @ 19:07 by Janine Chin RN) H/O foot surgery Family History (Updated 11/16/24 @ 19:07 by Janine Chin RN) Other Family history of cancer Social History (Updated 11/16/24 @ 19:07 by Janine Chin RN) Smoking Status: Current every day smoker tobacco type: cigarettes packs per day: 2 second hand exposure: Yes alcohol intake: never current occupational status: employed Travel in the last 8 weeks: None housing: house caffeine: Yes Have you lived/traveled outside [place] in past 30 days?: No Contact w/someone who lives/traveled outside US past 30 days?: No Exposure to someone with infectious disease in past 14 days?: No Do you have a fever (greater than 100.4 F or 38 C)?: No Have you tested positive for COVID-19: No Exposed to someone with COVID-19 in past 14 days?: No Do you have a sore throat?: No Do you have a cough?: No Do you have any weakness?: No Are you experiencing any nausea/vomitting?: No Do you have any diarrhea?: No Are you experiencing any unusual bleeding?: No Do you have any muscle aches/pain?: No Do you have any abdominal pain?: No Are you experiencing loss of taste or smell?: No Other Medical History Have you received the Flu Vaccine for this season: No Have you received the Pneumonia Vaccine: No Meds Home Medications and Allergies Home Medications ?Medication ?Instructions ?Recorded ?Confirmed ?Type warfarin 10 mg tablet (Coumadin) 10 mg PO DAILY 09/17/17 11/16/24 History amlodipine 5 mg tablet 5 mg PO DAILY blood pressure 11/08/17 11/16/24 History aspirin 81 mg chewable tablet 81 mg PO DAILY heart 04/12/18 11/16/24 History lisinopril 20 1 tab PO DAILY blood presure 04/12/18 11/16/24 History mg-hydrochlorothiazide 12.5 mg tablet buprenorphine 4 mg-naloxone 1 mg 8 mg PO DAILY 04/20/18 11/16/24 History sublingual film (Suboxone) buspirone 5 mg tablet 5 mg PO DAILY Anxiety 09/28/18 11/16/24 History omeprazole 40 mg capsule,delayed 40 mg PO DAILY 09/28/18 11/16/24 History release albuterol sulfate 90 mcg/actuation 1 puff inhalation DAILY 11/16/24 11/16/24 Hi story aerosol inhaler (Ventolin HFA) atorvastatin 20 mg tablet 20 mg PO DAILY 11/16/24 11/16/24 History carvedilol 25 mg tablet 25 mg PO DAILY 11/16/24 11/16/24 History cetirizine 10 mg tablet 10 mg PO DAILY 11/16/24 11/16/24 History escitalopram oxalate 20 mg tablet 20 mg PO DAILY 11/16/24 11/16/24 History potassium chloride 20 mEq 20 meq PO DAILY 11/16/24 11/16/24 History tablet,extended release(part/cryst) New Prescriptions to Start Prescriptions: Allergies Allergy/AdvReac Type Severity Reaction Status Date / Time cefdinir Allergy Cramping Verified 11/16/24 18:58 of the Muscles Penicillins Allergy Other Verified 11/16/24 18:58 Exam Data for Last 24 hours Vital signs and Labs for Last 24 Hours: Temp Pulse Resp BP Pulse Ox O2 Del Method 98.0 F 62 18 121/78 92 L Room Air 11/16/24 18:42 11/16/24 18:42 11/16/24 18:42 11/16/24 18:42 11/16/24 18:00 11/16/24 18:42 Laboratory Results - last 24 hr 11/16/24 16:50: WBC 6.3, RBC 4.93, Hgb 15.3, Hct 42.0, MCV 85.2, MCH 31.0, MCHC 36.4 H, RDW 12.0, Plt Count 170, MPV 9.3, Neut % (Auto) 58.2, Lymph % (Auto) 29.0, Curry % (Auto) 7.0, Eos % (Auto) 4.3, Baso % (Auto) 1.3, Neut # (Auto) 3.7, Lymph # (Auto) 1.8, Curry # (Auto) 0.4, Eos # (Auto) 0.3, Baso # (Auto) 0.1, Sodium 137, Potassium 4.7, Chloride 107, Carbon Dioxide 19 L, Anion Gap 15.7 H, BUN 52 H, Creatinine 3.90 H, Estimated Creat Clear 31, Estimated GFR 16 L*, Est GFR ( Amer) 19 L*, Glucose 274 H, Hemoglobin A1c 5.5, Calcium 8.5, Magnesium 1.4 L, Total Bilirubin 0.3, AST 19, ALT 18, Alkaline Phosphatase 109, Troponin I < 0.01, NT-Pro-B Natriuret Pep 248 H, Total Protein 6.5, Albumin 3.6, Globulin 2.9, Albumin/Globulin Ratio 1.2, TSH 1.69, Free T4 Index 2.4 L, Thyroxine (T4) 7.5, T3 Uptake 32 11/16/24 17:22: Urine Color Yellow, Urine Appearance Clear, Urine pH 6.0, Ur Specific [place] 1.020, Urine Protein Negative, Urine Glucose (UA) Negative, Urine Ketones Negative, Urine Blood Negative, Urine Nitrate Negative, Urine Bilirubin Negative, Urine Urobilinogen 0.2, Ur Leukocyte Esterase Negative, Urine RBC None, Urine WBC 3-5, Ur Squamous Epith Cells None, Urine Bacteria None, Hyaline Casts 3-5, Fine Granular Casts Occasional I & O for Last 24 hours: Intake & Output 11/13/24 11/14/24 11/15/24 11/16/24 23:59 23:59 23:59 23:59 Weight 106.141 kg Constitutional Constitutional: no acute distress *Routine HEENT Exam Head: Present normocephalic Eye: Present EOMI and PERRL ENT: Present mucous membranes moist *Routine Neck Exam Neck: Present supple; Absent lymphadenopathy *Routine Respiratory Exam Respiratory: Present CTA bilaterally *Routine Cardiovascular Exam Cardiovascular: Present RRR *Routine Abdominal Exam Abdominal: Present soft and normoactive bowel sounds; Absent tenderness *Routine Rectal Exam Rectal:: deferred *Routine Genitalia Exam Genitalia:: deferred *Routine Extremities Exam Extremities: Absent cyanosis, clubbing or edema *Routine Skin Exam Skin: Present warm; Absent rash *Routine Neurological Exam Neurological: Present alert and oriented X3 Assessment and Plan *Assessment and plan (1) Acute kidney injury (nontraumatic): Status: Acute Category: Medical Code(s): N17.9 - Acute kidney failure, unspecified Plan Esvin Perales is a 58-year-old male with a medical history significant for hypertension, COPD on room air, current tobacco smoker, anxiety/depression, GERD who presents with progressive weakness over the past few days and was found to have a significant ALYCIA. Patient states not much has changed recently other than him with cutting outside over the past week. He denies nausea/vomiting/d iarrhea, poor oral intake but does endorse drinking 8 patsy eights a day which is normal for him. He states he urinates quite often, thinks about a gallon a day but is also chronic. Denies profuse sweating, changes in medications, fever/chills, chest pain, shortness of breath, abdominal pain. Workup in the ED significant for creatinine 3.9, GFR 16 (creatinine baseline 1.0), AGAP 15.7, magnesium 1.4, UA with mild hyaline casts but only occasional granular casts. Given these findings, case discussed with ED provider and decision made to admit patient for acute tubular necrosis, ALYCIA, weakness. #ALYCIA #Acute tubular necrosis (ATN) #High anion metabolic acidosis #Hypomagnesemia ? History is unclear contribution to ALYCIA. Denies nausea/vomiting/diarrhea, decreased p.o. intake. Does take lisinopril, hydrochlorothiazide at home ? Though does drink a lot of caffeinated Patsy 8's, apparently urinates a gallon a day but also states this is chronic. Sodium is normal, low suspicion for diabetes insipidus. ? Initial creatinine 3.9, GFR 16, BUN 52, AGAP 15.7. Baseline creatinine 1.0. ? UA showing mild hyaline, granular casts suggesting tubular necrosis. ? LR at 150 mL/h. NS 1 L bolus given the ED. ? Follow-up CK. ? Follow-up renal ultrasound in the morning. ? Follow-up urine sodium, creatinine, urea. ? Follow-up repeat BMP at 9 PM. #Hypertension ? Hold home lisinopril, hydrochlorothiazide, amlodipine. #Anxiety/depression #Former opioid use disorder ? Continue home medications once reconciled. ? Continue home Suboxone 8/2 mg daily, personally reviewed PDMP. #COPD - Stable. Duonebs as needed. FULL CODE DVT ppx: Patient is ambulatory.
[2024-11-16] MEDS: LACTATED RINGERS 1000ML 1,000 ML 125 ML IV (18:56)
[2024-11-16 18:58] LABS: Creatine Kinase 72 U/L (55-170)
[2024-11-16 19:09] LABS: Phosphorous 2.8 mg/dl (2.5-4.5)
[2024-11-16 19:48] LABS: Adenovirus,PCR Not Detected (NotDetected); Bordetella Pertussis Not Detected (NotDetected); Chlamydophila Pneumoniae, PCR Not Detected (NotDetected); Coronavirus 19, PCR Not Detected (NotDetected); Coronavirus 229E Not Detected (NotDetected); Coronavirus NL63 Not Detected (NotDetected); Coronavirus OC43 Not Detected (NotDetected); Coronovirus HKU1,PCR Not Detected (NotDetected); Human Metapneumovirus Not Detected (NotDetected); Influenza A, PCR Not Detected (NotDetected); Influenza AH1, 2009 Not Detected (NotDetected); Influenza AH1, PCR Not Detected (NotDetected); Influenza AH3,PCR Not Detected (NotDetected); Influenza B, PCR Not Detected (NotDetected); Mycoplasma Pneumoniae, PCR Not Detected (NotDetected); Parainfluenza 1, PCR Not Detected (NotDetected); Parainfluenza 2, PCR Not Detected (NotDetected); Parainfluenza 3, PCR Not Detected (NotDetected); Parainfluenza 4, PCR Not Detected (NotDetected); Respiratory Syncytial Virus Not Detected (NotDetected); Rhinovirus/Enterovirus Not Detected (NotDetected)
[2024-11-16] MEDS: ACETAMINOPHEN 325MG TAB 650 MG PO (20:18)
[2024-11-16] MEDS: PANTOPRAZOLE 40MG TABLET 40 MG PO (20:18)
[2024-11-16 20:29] LABS: Troponin I < 0.01 ng/ml (0.00-0.034)
[2024-11-16 23:28] LABS: Troponin I < 0.01 ng/ml (0.00-0.034)
[2024-11-17] VITALS: BP 127/73; PULSE 65; RESP 14; TEMP 36.8; O2SAT 93
--- NOTE | 2024-11-17 | US_ITS ---
FINAL REPORT CLINICAL HISTORY: ALYCIA FINDINGS: RENAL ULTRASOUND Ultrasound images of the kidneys were obtained. The right kidney is small and measures 5.8 cm in length. It is normal echogenicity. There is no hydronephrosis, mass or stone. The left kidney is enlarged and measures 15.1 cm in length. This is probably due to compensatory hypertrophy. It is normal echogenicity. There is no hydronephrosis. There is an echogenic shadowing focus which may represent a nonobstructing stone. IMPRESSION: Small right kidney and enlarged left kidney. Probable, nonobstructing stone in the left kidney. Reviewed, Interpreted and Dictated by Mal Keys MD Transcribed by Kadie Arita Authenticated and [facility]
[2024-11-17] MEDS: LACTATED RINGERS 1000ML 1,000 ML 150 ML IV (02:24)
[2024-11-17] MEDS: MAGNESIUM SULFATE IN WATER 2 GM/50 ML PIGGYBACK IV ×3 (02:24→05:17)
--- NOTE | 2024-11-17 05:43 | PC.NURSE ---
Pt A&OX4 and has tolerated room air. Lung sounds clear and bowel sounds active. He has had LR infusing @150ml/hr. He has ambulated room independently. No complaints at this time, call light within reach.
[2024-11-17 06:23] LABS: Albumin Level 3.3 g/dl (3.5-5.0); Basophils # 0.1 K/mm3 (0-0.2); Chloride 105 mmol/L (98-107); Eosinophils # 0.2 Kmm3 (0.0-0.4); Eosinophils % 3.4 % (0.1-12.0); Hematocrit 39.3 % (42.0-52.0); Hemoglobin 14.1 g/dL (14.1-18.0); Lymphocytes % 32.8 % (10-50); Mean Corpuscular HGB Conc 35.9 g/dL (31.8-35.4); Mean Corpuscular Hemoglobin 30.8 pg (27.0-31.2); Mean Corpuscular Volume 85.8 fl (80-94); Mean Platelet Volume 9.2 fl (7.4-10.4); Monocytes # 0.6 K/mm3 (0.1-1.0); Monocytes % 9.3 % (1.7-9.3); Neutrophils # 3.3 K/mm3 (1.8-7.8); Neutrophils % 53.2 % (37.0-80.0); Nucleated Red Blood Cells # 0 10^3/uL; Nucleated Red Blood Cells % 0 %; Platelet Count 160 K/mm3 (142-424); Red Blood Count 4.58 M/mm3 (4.60-6.20); Red Cell Distribution Width-SD 37.5 fL; Sodium 138 mmol/L (136-145); White Blood Count 6.1 K/mm3 (4.8-10.8)
[2024-11-17 06:26] LABS: Alanine Aminotransferase 21 U/L (12-78); Albumin/Globulin Ratio 1.2 (1.1-1.8); Alkaline Phosphatase 87 U/L (38-126); Aspartate Amino Transferase 37 U/L (17-59); Bilirubin,Total 0.5 mg/dl (0.2-1.3); Blood Urea Nitrogen 10 mg/dl (9-20); Calcium 8.5 mg/dl (8.4-10.2); Carbon Dioxide 32 mmol/L (22.0-30.0); Cholesterol 99 mg/dl (140-200); Creatinine Clearance Estimated 133 mL/min (50-200); Estimated Glomerular Filt Rate 86 ml/min (>60); GFR (African American) 105 ML/MIN (>60); Globulin 2.7 g/dL (1.3-3.2); Glucose 99 mg/dl (74-100); Magnesium 2.5 mg/dl (1.6-2.3); Triglycerides 177 mg/dl (30-150); VLDL Cholesterol 35 mg/dL (0-40)
[2024-11-17 06:27] LABS: Chol/HDL Ratio 4.3 (1-3.5); HDL Cholesterol 23 mg/dl (40-60)
[2024-11-17 06:37] LABS: Direct LDL Cholesterol 41.72 mg/dL (100-129)
[2024-11-17 07:01] LABS: Phosphorous 3.1 mg/dl (2.5-4.5)
[2024-11-17 07:32] VITALS: BP 134/78; PULSE 68; RESP 18; TEMP 36.6; O2SAT 94
[2024-11-17 08:32] LABS: Activated Partial Thrombo Time 37.9 seconds (22.8-30.6); INR 2.11 (0.9-1.1); Prothrombin Time 21.9 seconds (10.1-12.5)
--- NOTE | 2024-11-17 08:43 | EXP.DC.SUM ---
General Admission date:: 11/16/24 HPI HPI HPI: Esvin Perales is a 58-year-old male with a medical history significant for hypertension, COPD on room air, current tobacco smoker, anxiety/depression, GERD who presents with progressive weakness over the past few days and was found to have a significant ALYCIA. Patient states not much has changed recently other than him with cutting outside over the past week. He denies nausea/vomiting/diarrhea, poor oral intake but does endorse drinking 8 patsy eights a day which is normal for him. He states he urinates quite often, thinks about a gallon a day but is also chronic. Denies profuse sweating, changes in medications, fever/chills, chest pain, shortness of breath, abdominal pain. Workup in the ED significant for creatinine 3.9, GFR 16 (creatinine baseline 1.0), AGAP 15.7, magnesium 1.4, UA with mild hyaline casts but only occasional granular casts. Given these findings, case discussed with ED provider and decision made to admit patient for acute tubular necrosis, ALYCIA, weakness. Hospital Course Hospital Course Hospital Course: Esvin Perales is a 58-year-old male with a medical history significant for hypertension, COPD on room air, current tobacco smoker, anxiety/depression, GERD who presents with progressive weakness and was admitted for the same. #Generalized weakness ? Presented with weakness, initial creatinine showing 3.9 which seemingly rapidly improved to 0.8 after fluid resuscitation. This was thought to be odd, and upon further investigation it was discovered that patient's initial blood work was mislabeled and his creatinine was in fact his baseline 0.9 on arrival. As such, patient did not have an ALYCIA. Respiratory panel normal. ? Patient did feel a lot better this morning after IV fluids, not having weakness. ? Patient was called to inform him about the situation and apologized for the situation. Risk-management team aware, will reach out to patient as well. #Hypertension ? Blood pressure normal today, advised to hold lisinopril and hydrochlorothiazide. Continue home carvedilol 25 mg twice daily, amlodipine 10 mg. #Anxiety/depression #Former opioid use disorder ? Continue home escitalopram 20 mg, BuSpar 5 mg twice daily. ? Continue home Suboxone 8/2 mg daily, personally reviewed PDMP. #History of DVT ? Continue home warfarin alternating between 5 mg and 10 mg. PT/INR at goal. #COPD - Stable. Continue home albuterol as needed. Exam Data for Last 24 hours Vital signs and Labs for Last 24 Hours: Temp Pulse Resp BP Pulse Ox O2 Del Method 97.8 F 68 18 134/78 94 L Room Air 11/17/24 07:32 11/17/24 07:32 11/17/24 07:32 11/17/24 07:32 11/17/24 07:32 11/17/24 07:34 Laboratory Results - last 24 hr 11/16/24 16:50: WBC 6.3, RBC 4.93, Hgb 15.3, Hct 42.0, MCV 85.2, MCH 31.0, MCHC 36.4 H, RDW 12.0, Plt Count 170, MPV 9.3, Neut % (Auto) 58.2, Lymph % (Auto) 29.0, [place] % (Auto) 7.0, Eos % (Auto) 4.3, Baso % (Auto) 1.3, Neut # (Auto) 3.7, Lymph # (Auto) 1.8, [place] # (Auto) 0.4, Eos # (Auto) 0.3, Baso # (Auto) 0.1, Sodium 137, Potassium 4.7, Chloride 107, Carbon Dioxide 19 L, Anion Gap 15.7 H, BUN 52 H, Creatinine 3.90 H, Estimated Creat Clear 31, Estimated GFR 16 L*, Est GFR ( Amer) 19 L*, Glucose 274 H, Hemoglobin A1c 5.5, Calcium 8.5, Phosphorus 2.8, Magnesium 1.4 L, Total Bilirubin 0.3, AST 19, ALT 18, Alkaline Phosphatase 109, Total Creatine Kinase 72, Troponin I < 0.01, NT-Pro-B Natriuret Pep 248 H, Total Protein 6.5, Albumin 3.6, Globulin 2.9, Albumin/Globulin Ratio 1.2, TSH 1.69, Free T4 Index 2.4 L, Thyroxine (T4) 7.5, T3 Uptake 32 11/16/24 17:22: Urine Color Yellow, Urine Appearance Clear, Urine pH 6.0, Ur Specific [place] 1.020, Urine Protein Negative, Urine Glucose (UA) Negative, Urine Ketones Negative, Urine Blood Negative, Urine Nitrate Negative, Urine Bilirubin Negative, Urine Urobilinogen 0.2, Ur Leukocyte Esterase Negative, Urine RBC None, Urine WBC 3-5, Ur Squamous Epith Cells None, Urine Bacteria None, Hyaline Casts 3-5, Fine Granular Casts Occasional 11/16/24 19:41: Chlamy pneumoniae PCR Not detected, Adenovirus (PCR) Not detected, B. pertussis DNA (PCR) Not detected, Coronavirus OC43 (PCR) Not detected, Coronavirus HKU1 (PCR) Not detected, Coronavirus 229E (PCR) Not detected, SARS-CoV-2 (PCR) Not detected, Coronavirus NL63 (PCR) Not detected, Human Metapneumovir PCR Not detected, Influenza A (H1) PCR Not detected, Influ A (H1N1/09) PCR Not detected, Influenza A (H3) PCR Not detected, Influenza Type A (PCR) Not detected, Influenza Type B (PCR) Not detected, M. pneumoniae (PCR) Not detected, Parainfluenza 1 (PCR) Not detected, Parainfluenza 2 (PCR) Not detected, Parainfluenza 3 (PCR) Not detected, Parainfluenza 4 (PCR) Not detected, RSV (PCR) Not detected, Entero/Rhino (PCR) Not detected 11/16/24 19:50: Troponin I < 0.01 11/16/24 23:00: Troponin I < 0.01 11/17/24 05:21: WBC 6.1, RBC 4.58 L, Hgb 14.1, Hct 39.3 L, MCV 85.8, MCH 30.8, MCHC 35.9 H, RDW 12.0, Plt Count 160, MPV 9.2, Neut % (Auto) 53.2, Lymph % (Auto) 32.8, [place] % (Auto) 9.3, Eos % (Auto) 3.4, Baso % (Auto) 1.0, Neut # (Auto) 3.3, Lymph # (Auto) 2.0, [place] # (Auto) 0.6, Eos # (Auto) 0.2, Baso # (Auto) 0.1, Sodium 138, Potassium 4.0, Chloride 105, Carbon Dioxide 32 H, Anion Gap 5.0, BUN 10 D, Creatinine 0.90 D, Estimated Creat Clear 133, Estimated GFR 86, Est GFR ( Amer) 105 D, Glucose 99 D, Calcium 8.5, Phosphorus 3.1, Magnesium 2.5 H D, Total Bilirubin 0.5, AST 37 D, ALT 21, Alkaline Phosphatase 87, Total Protein 6.0 L, Albumin 3.3 L, Globulin 2.7, Albumin/Globulin Ratio 1.2, Triglycerides 177 H, Cholesterol 99 L, LDL Cholesterol Direct 41.72 L, VLDL Cholesterol 35, HDL Cholesterol 23 L, Cholesterol/HDL Ratio 4.3 H 11/17/24 08:14: PT 21.9 H, INR 2.11 H, APTT 37.9 H I & O for Last 24 hours: Intake & Output 11/14/24 11/15/24 11/16/24 11/17/24 23:59 23:59 23:59 23:59 Intake Total 850 / 850 Output Total 1000 / 1000 Balance -150 / -150 Weight 106.141 kg Constitutional Constitutional: no acute distress *Routine HEENT Exam Head: Present normocephalic Eye: Present EOMI and PERRL ENT: Present mucous membranes moist *Routine Neck Exam Neck: Present supple; Absent lymphadenopathy *Routine Respiratory Exam Respiratory: Present CTA bilaterally *Routine Cardiovascular Exam Cardiovascular: Present RRR *Routine Abdominal Exam Abdominal: Present soft and normoactive bowel sounds; Absent tenderness *Routine Extremities Exam Extremities: Absent cyanosis, clubbing or edema *Routine Skin Exam Skin: Present warm; Absent rash *Routine Neurological Exam Neurological: Present alert and oriented X3 Results Data Completed and Pending Labs on day of discharge: Labs from last 24 hours 11/17/24 11/17/24 11/16/24 08:14 05:21 23:00 WBC 6.1 RBC 4.58 L Hgb 14.1 Hct 39.3 L MCV 85.8 MCH 30.8 MCHC 35.9 H RDW 12.0 Plt Count 160 MPV 9.2 Neut % (Auto) 53.2 Lymph % (Auto) 32.8 [place] % (Auto) 9.3 Eos % (Auto) 3.4 Baso % (Auto) 1.0 Neut # (Auto) 3.3 Lymph # (Auto) 2.0 [place] # (Auto) 0.6 Eos # (Auto) 0.2 Baso # (Auto) 0.1 PT 21.9 H INR 2.11 H APTT 37.9 H Sodium 138 Potassium 4.0 Chloride 105 Carbon Dioxide 32 H Anion Gap 5.0 BUN 10 D Creatinine 0.90 D Estimated Creat Clear 133 Estimated GFR 86 Est GFR ( Amer) 105 D Glucose 99 D Hemoglobin A1c Calcium 8.5 Phosphorus 3.1 Magnesium 2.5 H D Total Bilirubin 0.5 AST 37 D ALT 21 Alkaline Phosphatase 87 Total Creatine Kinase Troponin I < 0.01 NT-Pro-B Natriuret Pep Total Protein 6.0 L Albumin 3.3 L Globulin 2.7 Albumin/Globulin Ratio 1.2 Triglycerides 177 H Cholesterol 99 L LDL Cholesterol Direct 41.72 L VLDL Cholesterol 35 HDL Cholesterol 23 L Cholesterol/HDL Ratio 4.3 H TSH Free T4 Index Thyroxine (T4) T3 Uptake Urine Color Urine Appearance Urine pH Ur Specific [place] Urine Protein Urine Glucose (UA) Urine Ketones Urine Blood Urine Nitrate Urine Bilirubin Urine Urobilinogen Ur Leukocyte Esterase Urine RBC Urine WBC Ur Squamous Epith Cells Urine Bacteria Hyaline Casts Fine Granular Casts Chlamy pneumoniae PCR Adenovirus (PCR) B. pertussis DNA (PCR) Coronavirus OC43 (PCR) Coronavirus HKU1 (PCR) Coronavirus 229E (PCR) SARS-CoV-2 (PCR) Coronavirus NL63 (PCR) Human Metapneumovir PCR Influenza A (H1) PCR Influ A (H1N1/09) PCR Influenza A (H3) PCR Influenza Type A (PCR) Influenza Type B (PCR) M. pneumoniae (PCR) Parainfluenza 1 (PCR) Parainfluenza 2 (PCR) Parainfluenza 3 (PCR) Parainfluenza 4 (PCR) RSV (PCR) Entero/Rhino (PCR) 11/16/24 11/16/24 11/16/24 19:50 19:41 17:22 WBC RBC Hgb Hct MCV MCH MCHC RDW Plt Count MPV Neut % (Auto) Lymph % (Auto) [place] % (Auto) Eos % (Auto) Baso % (Auto) Neut # (Auto) Lymph # (Auto) [place] # (Auto) Eos # (Auto) Baso # (Auto) PT INR APTT Sodium Potassium Chloride Carbon Dioxide Anion Gap BUN Creatinine Estimated Creat Clear Estimated GFR Est GFR ( Amer) Glucose Hemoglobin A1c Calcium Phosphorus Magnesium Total Bilirubin AST ALT Alkaline Phosphatase Total Creatine Kinase Troponin I < 0.01 NT-Pro-B Natriuret Pep Total Protein Albumin Globulin Albumin/Globulin Ratio Triglycerides Cholesterol LDL Cholesterol Direct VLDL Cholesterol HDL Cholesterol Cholesterol/HDL Ratio TSH Free T4 Index Thyroxine (T4) T3 Uptake Urine Color Yellow Urine Appearance Clear Urine pH 6.0 Ur Specific [place] 1.020 Urine Protein Negative Urine Glucose (UA) Negative Urine Ketones Negative Urine Blood Negative Urine Nitrate Negative Urine Bilirubin Negative Urine Urobilinogen 0.2 Ur Leukocyte Esterase Negative Urine RBC None Urine WBC 3-5 Ur Squamous Epith Cells None Urine Bacteria None Hyaline Casts 3-5 Fine Granular Casts Occasional Chlamy pneumoniae PCR Not detected Adenovirus (PCR) Not detected B. pertussis DNA (PCR) Not detected Coronavirus OC43 (PCR) Not detected Coronavirus HKU1 (PCR) Not detected Coronavirus 229E (PCR) Not detected SARS-CoV-2 (PCR) Not detected Coronavirus NL63 (PCR) Not detected Human Metapneumovir PCR Not detected Influenza A (H1) PCR Not detected Influ A (H1N1/) PCR Not detected Influenza A (H3) PCR Not detected Influenza Type A (PCR) Not detected Influenza Type B (PCR) Not detected M. pneumoniae (PCR) Not detected Parainfluenza 1 (PCR) Not detected Parainfluenza 2 (PCR) Not detected Parainfluenza 3 (PCR) Not detected Parainfluenza 4 (PCR) Not detected RSV (PCR) Not detected Entero/Rhino (PCR) Not detected 11/16/24 16:50 WBC 6.3 RBC 4.93 Hgb 15.3 Hct 42.0 MCV 85.2 MCH 31.0 MCHC 36.4 H RDW 12.0 Plt Count 170 MPV 9.3 Neut % (Auto) 58.2 Lymph % (Auto) 29.0 [place] % (Auto) 7.0 Eos % (Auto) 4.3 Baso % (Auto) 1.3 Neut # (Auto) 3.7 Lymph # (Auto) 1.8 [place] # (Auto) 0.4 Eos # (Auto) 0.3 Baso # (Auto) 0.1 PT INR APTT Sodium 137 Potassium 4.7 Chloride 107 Carbon Dioxide 19 L Anion Gap 15.7 H BUN 52 H Creatinine 3.90 H Estimated Creat Clear 31 Estimated GFR 16 L* Est GFR ( Amer) 19 L* Glucose 274 H Hemoglobin A1c 5.5 Calcium 8.5 Phosphorus 2.8 Magnesium 1.4 L Total Bilirubin 0.3 AST 19 ALT 18 Alkaline Phosphatase 109 Total Creatine Kinase 72 Troponin I < 0.01 NT-Pro-B Natriuret Pep 248 H Total Protein 6.5 Albumin 3.6 Globulin 2.9 Albumin/Globulin Ratio 1.2 Triglycerides Cholesterol LDL Cholesterol Direct VLDL Cholesterol HDL Cholesterol Cholesterol/HDL Ratio TSH 1.69 Free T4 Index 2.4 L Thyroxine (T4) 7.5 T3 Uptake 32 Urine Color Urine Appearance Urine pH Ur Specific [place] Urine Protein Urine Glucose (UA) Urine Ketones Urine Blood Urine Nitrate Urine Bilirubin Urine Urobilinogen Ur Leukocyte Esterase Urine RBC Urine WBC Ur Squamous Epith Cells Urine Bacteria Hyaline Casts Fine Granular Casts Chlamy pneumoniae PCR Adenovirus (PCR) B. pertussis DNA (PCR) Coronavirus OC43 (PCR) Coronavirus HKU1 (PCR) Coronavirus 229E (PCR) SARS-CoV-2 (PCR) Coronavirus NL63 (PCR) Human Metapneumovir PCR Influenza A (H1) PCR Influ A (H1N1) PCR Influenza A (H3) PCR Influenza Type A (PCR) Influenza Type B (PCR) M. pneumoniae (PCR) Parainfluenza 1 (PCR) Parainfluenza 2 (PCR) Parainfluenza 3 (PCR) Parainfluenza 4 (PCR) RSV (PCR) Entero/Rhino (PCR) DS: Diagnosis Discharge Diagnosis (1) Acute kidney injury (nontraumatic): Status: Acute Code(s): N17.9 - Acute kidney failure, unspecified Meds Home Medications and Allergies Home Medications ?Medication ?Instructions ?Recorded ?Confirmed ?Type warfarin 10 mg tablet (Coumadin) 10 mg PO SUMOWEFR 09/17/17 11/17/24 History aspirin 81 mg chewable tablet 81 mg PO DAILY heart 04/12/18 11/16/24 History lisinopril 20 1 tab PO DAILY 04/12/18 11/16/24 History mg-hydrochlorothiazide 12.5 mg tablet buspirone 5 mg tablet 5 mg PO BID Anxiety 09/28/18 11/17/24 History omeprazole 40 mg capsule,delayed 40 mg PO DAILY 09/28/18 11/16/24 History release albuterol sulfate 90 mcg/actuation 2 puff inhalation Q4HP PRN 11/16/24 11/17/24 History aerosol inhaler (Ventolin HFA) Shortness Of Breath atorvastatin 20 mg tablet 20 mg PO DAILY 11/16/24 11/16/24 History carvedilol 25 mg tablet 25 mg PO DAILY 11/16/24 11/16/24 History cetirizine 10 mg tablet 10 mg PO DAILY 11/16/24 11/16/24 History escitalopram oxalate 20 mg tablet 20 mg PO DAILY 11/16/24 11/16/24 History potassium chloride 20 mEq 20 meq PO DAILY 11/16/24 11/16/24 History tablet,extended release(part/cryst) amlodipine 10 mg tablet 10 mg PO DAILY 11/17/24 11/17/24 History buprenorphine 8 mg-naloxone 2 mg 1 tab sublingual DAILY 11/17/24 11/17/24 History sublingual tablet warfarin 5 mg tablet 5 mg PO TUTHSA 11/17/24 11/17/24 History New Prescriptions to Start Prescriptions: Allergies Allergy/AdvReac Type Severity Reaction Status Date / Time cefdinir Allergy Cramping Verified 11/16/24 18:58 of the Muscles Penicillins Allergy Other Verified 11/16/24 18:58 Discharge Plan Disposition Patient Disposition: Home, Self-Care Condition: Fair Follow up Plan Follow up with: Fauzia Sterling MD [Primary Care Provider] - 11/24/24 1:30 pm Prescriptions/Medication Reconciliation: Continued buspirone 5 MG tablet 5 mg PO BID omeprazole 40 capsule,delayed release(DR/EC) 40 mg PO DAILY warfarin [Coumadin] 10 MG tablet 10 mg PO SUMOWEFR aspirin 81 MG tablet,chewable 81 mg PO DAILY carvedilol 25 mg tablet 25 mg PO DAILY Patient Comments: TAKE 1 TABLET BY MOUTH TWICE DAILY WITH MEALS atorvastatin 20 mg tablet 20 mg PO DAILY cetirizine 10 mg tablet 10 mg PO DAILY potassium chloride 20 mEq tablet,ER particles/crystals 20 meq PO DAILY albuterol sulfate [Ventolin HFA] 90 mcg/actuation HFA aerosol inhaler 2 puff INHALATION Q4HP PRN (Reason: Shortness Of Breath) escitalopram oxalate 20 mg tablet 20 mg PO DAILY amlodipine 10 mg tablet 10 mg PO DAILY warfarin 5 mg tablet 5 mg PO TUTHSA buprenorphine-naloxone 8-2 mg tablet, sublingual 1 tab SUBLINGUAL DAILY Held lisinopril-hydrochlorothiazide 1 EACH tablet 1 tab PO DAILY Hold Instructions: Resume on 12/01/24. Please hold this medication until you follow-up with your PCP. Rx Instructions: 20/12.5mg Problem Reconciliation Problems Reviewed?: Yes Patient Discharge Instructions Patient Instructions: Acute Kidney Injury, What Can I Do About Kidney Disease? Print Language: Thai Providers Primary Care Provider: Fauzia Sterling Admit Provider: Tito Aleman Attending Provider: Tito Aleman
[2024-11-17 08:55] LABS: Troponin I < 0.01 ng/ml (0.00-0.034)
[2024-11-17 08:56] LABS: Alanine Aminotransferase 28 U/L (12-78); Anion Gap 11.6 mEq/L (5-15); Aspartate Amino Transferase 38 U/L (17-59); Bilirubin,Total 0.7 mg/dl (0.2-1.3); Blood Urea Nitrogen 12 mg/dl (9-20); Calcium 8.8 mg/dl (8.4-10.2); Carbon Dioxide 25 mmol/L (22.0-30.0); Chloride 103 mmol/L (98-107); Creatinine Clearance Estimated 133 mL/min (50-200); Estimated Glomerular Filt Rate 86 ml/min (>60); GFR (African American) 105 ML/MIN (>60); Glucose 155 mg/dl (74-100); Potassium 4.6 mmoL/L (3.5-5.1); Sodium 135 mmol/L (136-145)
[2024-11-17 08:57] LABS: Albumin/Globulin Ratio 1.5 (1.1-1.8); Alkaline Phosphatase 82 U/L (38-126); Globulin 2.6 g/dL (1.3-3.2); Total Protein,Serum 6.6 g/dl (6.3-8.2)
[2024-11-17 09:15] LABS: Anion Gap 7.2 mEq/L (5-15); Blood Urea Nitrogen 10 mg/dl (9-20); Calcium 9.1 mg/dl (8.4-10.2); Carbon Dioxide 31 mmol/L (22.0-30.0); Chloride 105 mmol/L (98-107); Creatinine Clearance Estimated 149 mL/min (50-200); Estimated Glomerular Filt Rate 99 ml/min (>60); GFR (African American) 120 ML/MIN (>60); Glucose 130 mg/dl (74-100); Potassium 4.2 mmoL/L (3.5-5.1); Sodium 139 mmol/L (136-145)
--- NOTE | 2024-11-18 10:06 | CARE MANAGER ---
Spoke with patient related to discharge. No new medications. He states Dr. Aleman called him yesterday and somone else is supposed to be calling him today related to him being admitted due to labs that were not his. Transferred him to [facility]. JAYCEE Carrillo
== END 2024-11-17 09:35 | disposition home or self-care (01) ==
LOC: ER 18:32 → 2ND 19:06
PROVIDERS: Physician Assistant; Admitting Provider Student in an Organized Health Care Education/Training Program; Emergency Provider Emergency Medicine; PCP Family Medicine; Visit Provider Student in an Organized Health Care Education/Training Program
DX: N17.0 Acute kidney failure with tubular necrosis (principal); J44.9 Chronic obstructive pulmonary disease, unspecified; F17.210 Nicotine dependence, cigarettes, uncomplicated; K21.9 Gastro-esophageal reflux disease without esophagitis; I10 Essential (primary) hypertension; Z79.891 Long term (current) use of opiate analgesic; Z86.718 Personal history of other venous thrombosis and embolism; Z88.0 Allergy status to penicillin; Z88.8 Allergy status to other drugs, medicaments and biological substances; Z79.01 Long term (current) use of anticoagulants; Z79.51 Long term (current) use of inhaled steroids; Z79.82 Long term (current) use of aspirin; Z79.899 Other long term (current) drug therapy; E87.21 Acute metabolic acidosis; E83.42 Hypomagnesemia
CPT/HCPCS: 36415; 71046; 76770; 80048; 80053; 80061; 81001; 82550; 83036; 83735; 83880; 84100; 84436; 84443; 84479; 84484; 85025; 85610; 85730; 87633; 93005; 99291; G0378; J2405; J3475; J7030; J7120

== ENCOUNTER 2025-02-12 16:51 | Emergency (ER) | payer MEDICAID, SELFPAY ==
--- OUTSIDE RECORDS SUMMARY | 2024-12-19 11:00 | XMS_ITS | Encounter Summary ---
Author Organization [facility] Address [address] [place] [address] Care Team Providers Care Manual Lathe Operator Name Role Phone Fauzia Sterling MD Primary Care Provider [phone] Reason for Visit * Reason Comments Constipation Milk of magnesia hel p last night but today his stomach is very upsetNo nausea, no vomiting Encounter Details Date Type Department Care Team (Late st Contact Info) Description 12/19/2024 11:00 AM EDT Office Visit [facility] [address] [place] [phone] Macarena Chin PA-C [address] [place] [address] Constipation, unspecified constipation type (Primary Dx); Tobacco use Social History Tobacco Use Types Packs/Day Years Used Date Smoking Tobacco: Every Day Cigarettes 1 35 Passive Smoke Exposure: Current Smokeless Tobacco: Never Tobacco Cessation:Ready to Q uit: No; Counseling Given: No Comments:Smoking 1-1 1/2 pack a day Alcohol Use Standard Drinks/Week Comments No 0 (1 standard drink = 0.6 oz pur e alcohol) [facility] Utilities Answer Date Recorded In the past 12 months has th e electric, gas, oil, or water company threatened to shut off services in your home? No 11/18/2024 Overall Financial Resource Strain (CARDIA) Answe r Date Recorded How hard is it for you to pa y for the very basics like food, housing, medical care, and heating? Somewhat hard 11/18/2024 PHQ-2 Answer Date Recorded Retired PHQ-9: Brief Depression Severity Measure Score 0 04/03/2023 Hunger Vital Sign Answer Date Recorded Within the past 12 months, y ou worried that your food would run out before you got the money to buy more. Sometimes true Within the past 12 months, t he food you bought just didn't last and you didn't have money to get more. Sometimes true PRAPARE - Transportation Answer Date Re corded In the past 12 months, has l ack of transportation kept you from medical appointments or from getting medications? No 10/22 In the past 12 months, has l ack of transportation kept you from meetings, work, or from getting things needed for daily living? No 11/18/2024 Housing Stability Vital Sign Answer Ousmane e Recorded In the last 12 months, was t here a time when you were not able to pay the mortgage or rent on time? No 11/18/2024 In the past 12 months, how m any times have you moved where you were living? 1 11/18/2024 At any time in the past 12 m [facility], were you homeless or living in a jail (including now)? No 11/18/2024 Abuse Screen Answer Date Recorded Feels Unsafe at Home or Work/School no 05/07/2024 Feels Threatened by Someone no 04/22 Does Anyone Try to Keep You From Having Contact with Others or Doing Things Outside Your Home? no 05/07/2024 Physical Signs of Abuse Present no 05/07/2024 Housing Stability Answer Date Recorded Current Living Arrangements home 10/22 Potentially Unsafe Housing Conditions none 11/18/2024 Amb Case Mgmt Answer Date Recorded Help with Reading Health-Related Information nev er 11/18/2024 Problems Learning about Medical Condition never 11/18/2024 Confidence in Filling Out Forms by Self always 11/18/2024 Employment Answer Date Recorded Do you want help finding or keeping work or a job? I do not need or want help 11/18/2024 PHQ-2 Answer Date Recorded Patient Health Questionnaire-9 Score 0 10/14/2024 Sex and Gender Information Value Date Recorded Sex Assigned at Not on file Legal Sex Male 12:07 PM EDT Gender Identity Not on file Sexual Orientation Not on file documented as of this encounter Last Filed Vital Signs Vital Sign Reading Time Taken Comments Blood Pressure 118/62 12/19/2024 10:56 AM EDT Pulse 70 12/19/2024 10:56 AM EDT Temperature 36.6 C (97.8 F) 12/19/2024 10:56 AM EDT Respiratory Rate - - Oxygen Saturation 99% 12/19/2024 10:56 AM EDT Inhaled Oxygen Concentration - - Weight 106 kg (233 lb) 12/19/2024 10:56 AM EDT Height 175.3 cm (5' 9.02 ) 12/19/2024 10:56 AM E DT Body Mass Index 34.39 12/19/2024 10:56 AM EDT documented in this encounter Patient Instructions * Patient Instructions* Macarena Chin PA-C - 12/19/2024 11:00 AM EDT Images from the original note were not included. Steps to Quit Smoking Smoking tobacco is the leading cause of preventable . It can affect almost every organ in the body. Smoking puts you and those around you at risk for developing many serious chronic diseases. Quitting smoking can be very challenging. Do not get discouraged if you are not successful the first time. Some people need to make many attempts to quit before they achieve long-term success. Do your best to stick to your quit plan, and talk with your health care provider if you have any questionsor concerns. How do I get ready to quit? When you decide to quit smoking, create a plan to help you succeed. Before you quit: Pick a date to quit. Set a date within the next 2 weeks to give you time to prepare. Write down the reasons why you are quitting. Keep this list in places where you will see it often. Tell your family, friends, and co-workers that you are quitting. Support from people you are close to can make quitting easier. Talk with your health care provider about your options for quitting smoking. Find out what treatment options are covered by your health insurance. Identify people, places, things, and activities that make you want to smoke (triggers). Avoid them. What first steps can I take to quit smoking? Throw away all cigarettes at home, at work, and in your car. Throw away smoking accessories, such as ashtrays and lighters. Clean your car. Make sure to empty the ashtray. Clean your home, including curtains and carpets. What strategies can I use to quit smoking? Talk with your health care provider about combining strategies, such as taking medicines while you are also receiving in-person counseling. Using these two strategies together makes you more likely to succeed in quitting than if you used either strategy on its own. If you are or , talk with your health care provider about finding counseling or other support strategies to quit smoking. Do not take medicine to help you quit smoking unless your health care provider tells you to. Quit right away Quit smoking completely, instead of gradually reducing how much you smoke over a period of time. Stopping smoking right away may be more successful than gradually quitting. Attend in-person counseling to help you build problem-solving skills. You are more likely to succeed in quitting if you attend counseling sessions regularly. Even short sessions of 10 minutes can be effective. Take medicine You may take medicines to help you quit smoking. Some medicines require a prescription. You can also purchase gmsg-mgb-xyoystp medicines. Medicines may have nicotine in them to replace the nicotine in cigarettes. Medicines may: Help to stop cravings. Help to relieve withdrawal symptoms. Your health care provider may recommend: Nicotine patches, gum, or lozenges. Nicotine inhalers or sprays. Non-nicotine medicine that you take by mouth. Find resources Find resources and support systems that can help you quit smoking and remain smoke-free after you quit. These resources are most helpful when you use them often. They include: Online chats with a counselor. Telephone quitlines. Printed self-help materials. Support groups or group counseling. Text messaging programs. Mobile phone apps or applications. Use apps that can help you stick to your quit plan by providing reminders, tips, and encouragement. Examples of free services include Quit Guide from the CDC and smokefree.gov What can I do to make it easier to quit? Reach out to your family and friends for support and encouragement. Call telephone quitlines, such as 7-230-QSGU-NOW, reach out to support groups, or work with a counselor for support. Ask people who smoke to avoid smoking around you. Avoid places that trigger you to smoke, such as bars, parties, or smoke-break areas at work. Spend time with people who do not smoke. Lessen the stress in your life. Stress can be a smoking trigger for some people. To lessen stress, try: Exercising regularly. Doing deep-breathing exercises. Doing yoga. Meditating. What benefits will I see if I quit smoking? Over time, you should start to see positive results, such as: Improved sense of smell and taste. Decreased coughing and sore throat. Slower heart rate. Lower blood pressure. Clearer and healthier skin. The ability to breathe more easily. Fewer sick days. Summary Quitting smoking can be very challenging. Do not get discouraged if you are not successful the first time. Some people need to make many attempts to quit before they achieve long-term success. When you decide to quit smoking, create a plan to help you succeed. Quit smoking right away, not slowly over a period of time. Find resources and support systems that can help you quit smoking and remain smoke-free after you quit. This information is not intended to replace advice given to you by your health care provider. Make sure you discuss any questions you have with your health care provider. Document Revised: 06/30/2022 Document Reviewed: 06/30/2022 [employer] Patient Education ?? 2023 [employer] documented in this encounter Progress Notes * Macarena Chin PA-C - 12/19/2024 11:00 AM EDT Images from the original note were not included. Follow Up Office Visit Date: 12/19/2024 Patient Name: Jesus Perales : 1965 Chief Complaint: Chief Complaint Patient presents with Constipation Milk of magnesia help last night but today his stomach is very upset No nausea, no vomiting History of Present Illness: Jesus Perales is a 58 y.o. male. History of Present Illness The patient presents for evaluation of constipation. He has been experiencing constipation for the past week, characterized by a sensation of needing todefecate without the actual bowel movement. He reports no associated cramping. Over the last week, he tried various interventions to alleviate the symptoms, including milk of magnesia, which proved effective. Currently, he feels mild discomfort in his abdomen and a sensation of needing to use the bathroom, but is unable to do so. There have been no changes in his medication regimen, except for running out of his cholesterol medication. He reports no alterations in his dietary habits or intake of unusual foods. He has not experienced any febrile episodes, nausea, vomiting, or hematochezia. Subjective Review of systems: Review of Systems I have reviewed and the following portions of the patient's history were updated as appropriate: past family history, past medical history, past social history, past surgical history and problem list. Medications: Current Outpatient Medications: acetaminophen (TYLENOL) 325 MG tablet, Take 2 tablets by mouth Daily As Needed for Mild Pain., Disp: , Rfl: amLODIPine (NORVASC) 10 MG tablet, Take 1 tablet by mouth once daily, Disp: 90 tablet, Rfl: 0 aspirin 81 MG tablet, Take 1 tablet by mouth Daily., Disp: 30 tablet, Rfl: 3 atorvastatin (LIPITOR) 20 MG tablet, Take 1 tablet by mouth once daily, Disp: 30 tablet, Rfl: 1 buprenorphine-naloxone (SUBOXONE) 8-2 MG per SL tablet, 1 tablet Daily., Disp: , Rfl: busPIRone (BUSPAR) 5 MG tablet, Take 1 tablet by mouth twice daily, Disp: 180 tablet, Rfl: 0 carvedilol (COREG) 25 MG tablet, TAKE 1 TABLET BY MOUTH TWICE DAILY WITH MEALS, Disp: 60 tablet, Rfl: 0 divalproex (DEPAKOTE) [address] tablet, Take 1 tablet by mouth 2 (Two) Times a Day., Disp: 180 tablet, Rfl: 0 escitalopram (LEXAPRO) 20 MG tablet, Take 1 tablet by mouth Daily., Disp: 90 tablet, Rfl: 3 ferrous sulfate 325 (65 FE) MG tablet, Take 1 tablet by mouth Daily With Breakfast., Disp: , Rfl: hydrOXYzine pamoate (VISTARIL) 50 MG capsule, Take 1 capsule by mouth 3 (Three) Times a Day As Needed for Anxiety for up to 20 doses., Disp: 20 capsule, Rfl: 0 lisinopril-hydrochlorothiazide (PRINZIDE,ZESTORETIC) 20-12.5 MG per tablet, Take 2 tablets by mouthonce daily, Disp: 180 tablet, Rfl: 0 Needle, Disp, (Hypodermic Needle) 23G X 1 misc, Use 1 Device As Needed (Injection of Testosterone)., Disp: 50 each, Rfl: 11 Needle, Disp, 18G X 1-1/2 misc, Use for drawing up the medication, Disp: 50 each, Rfl: 3 omeprazole (priLOSEC) 40 MG capsule, Take 1 capsule by mouth once daily, Disp: 90 capsule, Rfl: 0 potassium chloride (KLOR-CON M20) 20 MEQ CR tablet, Take 1 tablet by mouth once daily, Disp: 90 tablet, Rfl: 0 Ventolin HFA 108 (90 Base) MCG/ACT inhaler, INHALE 2 PUFFS BY MOUTH EVERY 4 HOURS NEEDED FOR WHEEZING, Disp: 36 g, Rfl: 0 warfarin (COUMADIN) 10 MG tablet, TAKE 1 TABLET BY MOUTH ONCE DAILY OR DIRECTED BY ANTICOAGULATION CLINIC. TAKE ON DIFFERENT DAYS THAN 5 MG, Disp: 30 tablet, Rfl: 0 warfarin (COUMADIN) 5 MG tablet, TAKE 1 TO 2 TABLETS BY MOUTH ONCE DAILY DIRECTED BY ANTICOAGULATION CLINIC, Disp: 90 tablet, Rfl: 0 cetirizine (zyrTEC) 10 MG tablet, Take 1 tablet by mouth once daily (Patient not taking: Reported on 12/19/2024), Disp: 30 tablet, Rfl: 11 lactulose (CHRONULAC) 10 GM/15ML solution, Take 30 mL by mouth 2 (Two) Times a Day As Needed (constipation)., Disp: 473 mL, Rfl: 1 Allergies: Allergies Allergen Reactions Cefdinir Other (See Comments) C. Diff colitis Penicillins Dizziness Objective Vital Signs: Vitals: 12/19/24 1056 BP: 118/62 Pulse: 70 Temp: 97.8 ??F (36.6 ??C) TempSrc: Infrared SpO2: 99% Weight: 106 kg (233 lb) Height: 175.3 cm (69.02 ) PainSc: 0-No pain Body mass index is 34.39 kg/m??. BMI is >= 30 and <35. (Class 1 Obesity). The following options were offered after discussion;: weight loss educational material (shared in after visit summary) Physical Exam: Physical Exam Vitals and nursing note reviewed. Constitutional: Appearance: Normal appearance. HENT: Head: Normocephalic and atraumatic. Right Ear: Tympanic membrane and ear canal normal. Left Ear: Tympanic membrane and ear canal normal. Nose: No congestion or rhinorrhea. Mouth/Throat: Mouth: Mucous membranes are moist. Pharynx: Oropharynx is clear. No posterior oropharyngeal erythema. Cardiovascular: Rate and Rhythm: Normal rate and regular rhythm. Pulmonary: Effort: Pulmonary effort is normal. Breath sounds: Normal breath sounds. No decreased breath sounds, wheezing, rhonchi or rales. Abdominal: General: Bowel sounds are normal. There is no distension. Palpations: Abdomen is soft. Tenderness: There is no abdominal tenderness. There is no guarding or rebound. Musculoskeletal: Cervical back: Neck supple. Right lower leg: No edema. Left lower leg: No edema. Lymphadenopathy: Cervical: No cervical adenopathy. Neurological: Mental Status: He is alert. Procedures Assessment / Plan Assessment/Plan: Diagnoses and all orders for this visit: 1. Constipation, unspecified constipation type (Primary) - lactulose (CHRONULAC) 10 GM/15ML solution; Take 30 mL by mouth 2 (Two) Times a Day As Needed (constipation). Dispense: 473 mL; Refill: 1 - XR Abdomen KUB (In Office) 2. Tobacco use Assessment & Plan 1. Constipation. - Reports a week-long history of constipation without cramping, despite feeling the urge to defecate. He has tried wfpl-irt-pmwsfmz remedies without success but found relief with milk of magnesia. - No changes in medication or diet. No fever, nausea, vomiting, or blood in the stool. - An x-ray will be conducted today to assess the extent of fecal matter in the colon. - Lactulose has been prescribed to be taken once daily to facilitate bowel movements. He is advisedto commence the lactulose treatment upon returning home from his trip tomorrow night. If symptoms persist despite the prescribed treatment, he should inform us promptly. Follow Up: Return for Next scheduled follow up. Patient or patient customer counter representative verbalized consent for the use of Ambient Listening during the visit with Macarena Chin PA-C for chart documentation. 12/19/2024 12:15 EDT Macarena Chin PA-C [facility] Primary Care Araceli Parisi documented in this encounter Plan of Treatment Upcoming Encounters Date Type Department Care Team (Late st Contact Info) Description 03/12/2025 8:30 AM EDT Office Visit [facility] [address] [place] [phone] Rae Truong, DEL[employer] [address] [place] [address] 04/29/2025 9:30 AM EDT Office Visit [facility] [address] [facility] [address] [place] [phone] Fauzia Sterling MD [address] [place] [address] documented as of this encounter Goals Goal Patient Goal Type Associated Problems Recent Progress Patient-Stated? Author Track and Manage My Blood Pressure Patient Goals On track(2024 10:45 AM EST) No Claudia Reno, RN Note: - choose a place to take my blood pressure (home, clinic or office, retail store) Why is this important? You won't feel high blood pressure, but it can still hurt your blood vessels. High blood pressure can cause heart or kidney problems. It can also cause a stroke. Making lifestyle changes like losing a little weight or eating less salt will help. Checking your blood pressure at home and at different times of the day can help to control blood pressure. If the doctor prescribes medicine remember to take it the way the doctor ordered. Call the office if you cannot afford the medicine or if there are questions about it. Hypertension Monitored Care Plan Hypertension (Hypertension) No Claudia Reno, RN Note: Evidence-based guidance: Promote initial use of ambulatory blood pressure measurements (for 3 days) to rule out white-coat effect; identify masked hypertension and presence or absence of nocturnal dipping of blood pressure. Encourage continued use of home blood pressure monitoring and recording in blood pressure log; include symptoms of hypotension or potential medication side effects in log. Review blood pressure measurements taken inside and outside of the provider office; establish baseline and monitor trends; compare to target ranges or patient goal. Share overall cardiovascular risk with patient; encourage changes to lifestyle risk factors, including alcohol consumption, smoking, inadequate exercise, poor dietary habits and stress. Notes: Disease Progression Prevented or Minimized Care Plan Disease Progression (Hypertension) No Claudia Reno RN Note: Evidence-based guidance: Tailor lifestyle advice to individual; review progress regularly; give frequent encouragement and respond positively to incremental successes. Assess for and promote awareness of worsening disease or development of comorbidity. Prepare patient for laboratory and diagnostic exams based on risk and presentation. Prepare patient for use of pharmacologic therapy that may include diuretic, beta-jose carlos, beta-jose carlos/thiazide combination, angiotensin-converting enzyme inhibitor, renin-angiotensin jose carlos or calcium-channel jose carlos. Expect periodic adjustments to pharmacologic therapy; manage side effects. Promote a healthy diet that includes primarily plant-based foods, such as fruits, vegetables, whole grains, beans and legumes, low-fat dairy and lean meats. Consider moderate reduction in sodium intake by avoiding the addition of salt to prepared foods and limiting processed meats, canned soup, frozen meals and salty snacks. Promote a regular, daily exercise goal of 150 minutes per week of moderate exercise based on tolerance, ability and patient choice; consider referral to physical therapist, community wellness and/or activity program. Encourage the avoidance of no more than 2 hours per day of sedentary activity, such as recreational screen time. Review sources of stress; explore current coping strategies and encourage use of mindfulness, yoga, meditation or exercise to manage stress. Notes: Response to Treatment Maximized Care Plan Resistant Hypertension (Hypertension) No Claudia Reno, RN Note: Evidence-based guidance: Assess patient response to treatment, including presence or absence of medication side effects, degree of blood pressure control and patient satisfaction. Assess technique (including cuff size and placement), measurement times, condition and calibration of blood pressure cuff set (both at-home and in-office equipment). Assess factors that may influence response to treatment, including nonadherence to pharmacologic treatment plan, diet or activity changes and/or presence of pain, stress or sleep disturbance. Screen for signs and symptoms of depression; if present, refer for or complete a comprehensive assessment. Evaluate social and economic barriers that may affect adherence to treatment plan Address pharmacologic nonadherence by simplifying dosing regimen, counseling or support by pharmacist, financial assistance, self-monitoring of blood pressure, use of motivational interviewing, voice or text messages. Encourage behavioral adherence strategies, like habit-based interventions that link medication taking with existing daily routines. Assess barriers to regular, daily physical activity; support family or support person-oriented activity changes and utilization of community activity or sports program. Address barriers to dietary changes, especially sodium restriction, with referrals to community programs, like cooking classes, meal services or intensive education when available. Refer to community-based peer support program or nurse home-visiting program. Assess for chronic pain; when present add additional goals (Chronic Pain Care Plan Guide) as needed. Provide frequent follow-up by telephone, telemonitoring, patient-practice portal or with home visit. Review alcohol use screen; address using brief intervention beginning with risk that interferes with blood pressure control; refer for treatment when excessive alcohol use is noted. Screen for obstructive sleep apnea; prepare patient for polysomnography based on risk and presentation and use of noninvasive ventilation to relieve obstructive sleep apnea when present. Notes: documented as of this encounter Procedures Procedure Name Priority Date/Time Associated Diagnosis Comments XR ABDOMEN KUB Routine 12/19/2024 11:31 AM EDT Constipation, unspecified constipation type documented in this encounter Results * XR Abdomen KUB (In Office) (12/19/2024 11:31 AM EDT) Anatomical Region Laterality Modality Body, Abdomen N/A Radiographic Leslie ging 12/20/2024 8:16 AM EDT Impressions 12/20/2024 8:17 AM EDT Impression: Moderate stool burden in the ascending colon. Nonspecific but nonobstructive bowel gas pattern. No acute findings. Electronically Signed: Laura Hernandez MD 12/20/2024 8:17 AM EDT Workstation ID: [id number] Narrative 12/20/2024 8:17 AM EDT XR ABDOMEN KUB Date of Exam: 12/19/2024 11:26 AM EDT Indication: constipation Comparison: CT abdomen and pelvis 01/25/2022. Findings: Moderate stool burden in the ascending colon. Mild gas within the colon. No abnormally dilated large or small bowel loops are identified. No pneumatosis or gross free intraperitoneal air. No organomegaly or abnormal soft tissue calcification is evident. Imaged lung bases are clear. There is mild lumbar dextroscoliotic curvature with marginal osteophyte formation. Procedure Note Laura Hernandez MD - 12/20/2024 XR ABDOMEN KUB Date of Exam: 12/19/2024 11:26 AM EDT Indication: constipation Comparison: CT abdomen and pelvis 01/25/2022. Findings: Moderate stool burden in the ascending colon. Mild gas within the colon.No abnormally dilated large or small bowel loops are identified. Nopneumatosis or gross free intraperitoneal air. No organomegaly or abnormalsoft tissue calcification is evident. Imaged lung bases are clear. There is mild lumbar dextroscolioticcurvature with marginal osteophyte formation. IMPRESSION: Impression: Moderate stool burden in the ascending colon. Nonspecific but nonobstructive bowel gas pattern. No acute findings. Electronically Signed: Laura Hernandez MD 12/20/2024 8:17 AM EDT Workstation ID: [id number] us Macarena Chin PA-C [facility] DI[facility]NOSTIC IMAGING ORD ERABLES Final Result documented in this encounter Visit Diagnoses Diagnosis Constipation, unspecified constipation type- Primary Tobacco use documented in this encounter Additional Health Concerns Active Problems Noted Date Diagnosed Date Hypertension (Hypertension) 05/08/2024 Disease Progression (Hypertension) 05/08/2024 Resistant Hypertension (Hypertension) 05/08/2024 documented as of this encounter Care Teams Manual Lathe Operator Relationship Specialty Start Date End Date Fauzia Sterling MD [address] [address] PCP - General Family Medicine 09/03/18 documented as of this encounter
--- OUTSIDE RECORDS SUMMARY | 2024-12-19 11:45 | XMS_ITS | Encounter Summary ---
[facility] Organization [facility] Address [address] [place] [address] Care Team Providers Care Public Health Physician Name Role Phone Fauzia Sterling MD Primary Care Provider [phone] Encounter Details Date Type Department Care Team (Late st Contact Info) Description 12/19/2024 11:45 AM EDT Ancillary Procedure [facility] [address] [facility] [address] [place] [phone] Social History Tobacco Use Types Packs/Day Years Used Date Smoking Tobacco: Every Day Cigarettes 1 35 Passive Smoke Exposure: Current Smokeless Tobacco: Never Comments:Smoking 1-1 1/2 pac k a day Alcohol Use Standard Drinks/Week Comments No 0 (1 standard drink = 0.6 oz pur e alcohol) [facility] Utilities Answer Date Recorded In the past 12 months has [employer], gas, oil, or water [facility] threatened to shut off services in your [...] any time in the past [address] [facility], were you homeless or living in a group home (including now)? No 11/18/2024 Abuse Screen Answer [...] on file documented as of this encounter Plan of Treatment Upcoming Encounters Date Type Department Care Team (Late st Contact Info) Description 03/12/2025 8:30 AM EDT Office Visit [facility] [address] [place] [phone] Rae Truong, CEO ZIFF DAVIS [address] [place] [address] 04/29/2025 9:30 AM EDT Office Visit [facility] [address] [phone] Fauzia Sterling MD [address] [address] documented as of this encounter Goals Goal Patient Goal Type Associated Problems Recent Progress Patient-Stated? Author Track and Manage My Blood Pressure Patient Goals On track(2024 10:45 AM EST) No Claudia Reno, JAYCEE Note: - choose a place to take [...] Care Plan Disease Progression (Hypertension) No Claudia Reno, RN Note: Evidence-based guidance: Tailor lifestyle advice [...] MD 12/20/2024 8:17 AM EDT Workstation ID: [id number] Narrative 12/20/2024 8:17 AM EDT XR ABDOMEN [...] MD 12/20/2024 8:17 AM EDT Workstation ID: [id number] us Macarena Chin PA-C IMG DIAGNOSTIC IMAGING ORD ERABLES Final Result documented in this encounter Visit Diagnoses Not on filedocumented in this encounter Additional Health Concerns Active Problems Noted Date Diagnosed Date Hypertension (Hypertension) 05/08/2024 Disease Progression (Hypertension) 05/08/2024 Resistant Hypertension (Hypertension) 05/08/2024 documented as of this encounter Care Teams Public Health Physician Relationship Specialty Start Date End Date Fauzia Sterling MD [address] [place] [address] PCP - General Family Medicine 09/03/18 documented as of this encounter
--- OUTSIDE RECORDS SUMMARY | 2024-12-30 09:00 | XMS_ITS | Encounter Summary ---
Author Organization [facility] Address [address] [place] [address] Care Team Providers Care [employer] Consultant Name Role Phone Fauzia Sterling MD Primary Care Provider [phone] Reason for Referral * Diagnostic Medical (Routine) - Pending Review Specialty Diagnoses / Procedures Referred By Laya arboleda Referred To Contact Gastroenterology Diagnoses Screening for colon cancer Procedures [facility] OFFICE/OUTPATIENT NEW MODERATE MDM 45 MINUTES Isatu Aviles DO [address] [address] Phone: tel: fax: [facility] [address] [address] Phone: tel: fax: Referral ID Status Reason Start Date Expiration Date Visits Requested Visits Authorized [id number] Pending Review Specialty Services Required 12/30/2024 03/31/2026 1 1 Reason for Visit * Reason Comments Sore Throat X 2-3 days; patient states he has a new air conditioner in his room that is blowing right on him and feels this is why he has these symptoms. Headache X 2-3 days Encounter Details Date Type Department Care Team (Late st Contact Info) Description 12/30/2024 9:00 AM EDT Office Visit [facility] [address] [phone] Isatu Aviles DO 1099 [facility] 100 [place] [address] Sore throat (Primary Dx); Screening for colon cancer; Fever, unspecified fever cause; Difficult or painful urination; COPD with exacerbation Social History Tobacco Use Types Packs/Day Years Used Date Smoking Tobacco: Every Day Cigarettes 1 35 Passive Smoke Exposure: Current Smokeless Tobacco: Never Tobacco Cessation:Ready to Q uit: No; Counseling Given: Not Answered Comments:Smoking 1-1 1/2 pack a day Alcohol Use Standard Drinks/Week Comments No 0 (1 standard drink = 0.6 oz pur e alcohol) [facility] Utilities Answer Date Recorded In the [...] any time in the past 12 m [facility], were you homeless or living in a jail (including now)? No 11/18/2024 Abuse Screen Answer Date Recorded Feels Unsafe at Home or Work/School no 12/30/2024 Feels Threatened by Someone no 12/21 Does Anyone Try to Keep You From Having Contact with Others or Doing Things Outside Your Home? no 12/30/2024 Physical Signs of Abuse Present no 12/30/2024 Housing Stability Answer Date Recorded Current Living [...] Sign Reading Time Taken Comments Blood Pressure 114/68 12/30/2024 8:25 AM EDT Pulse 66 12/30/2024 8:25 AM EDT Temperature 37.2 C (98.9 F) 12/30/2024 8:25 AM EDT Respiratory Rate - - Oxygen Saturation 93% 12/30/2024 8:25 AM EDT Inhaled Oxygen Concentration - - Weight 106 kg (233 lb 9.6 oz) 12/30/2024 8:25 AM EDT Height 175.3 cm (5' 9.02 ) 12/30/2024 8:25 AM ED T Body Mass Index 34.48 12/30/2024 8:25 AM EDT documented in this encounter Patient Instructions * Attachments The following attachments cannot be sent through Care Everywhere. * Prednisone Tablets (Amharic) * Warfarin Tablets (Amharic) documented in this encounter Progress Notes * Isatu Aviles DO - 12/30/2024 9:00 AM EDT Chief Complaint Sore Throat (X 2-3 days; patient states he has a new air conditioner in his room that is blowing right on him and feels this is why he has these symptoms. ) and Headache (X 2-3 days) Sore Throat Associated symptoms: headaches Headache Associated symptoms: headaches and sore throat Main symptom: sore throat Began: about 2-4 days ago per patient . He reports sob since sharmaine aguilar a new air conditioner that blows in his face at night. Sick contacts: none he is aware of . Fever is present he says up to 101 Sore throat is present He denies any chest pain. GI symptoms are not present he denies any diarrhea no vomiting Cough: coughin gup thick mucus Aches are present He has a rescue inhaler he has been having to use He also reports buttermaker continuous churn difficulty to start urination The following portions of the patient's history were reviewed and updated as appropriate: allergies, current medications, past family history, past medical history, past social history, past surgicalhistory, and problem list. OBJECTIVE: BP 114/68 Pulse 66 Temp 98.9 ??F (37.2 ??C) (Infrared) Ht 175.3 cm (69.02 ) Wt 106 kg (233 lb 9.6 oz) SpO2 93% BMI 34.48 kg/m?? Physical Exam Constitutional: General: He is not in acute distress. Appearance: Normal appearance. HENT: Head: Normocephalic and atraumatic. Eyes: Extraocular Movements: Extraocular movements intact. Cardiovascular: Rate and Rhythm: Normal rate and regular rhythm. Heart sounds: No murmur heard. Pulmonary: Effort: Pulmonary effort is normal. No respiratory distress. Breath sounds: No stridor. Wheezing present. No rhonchi or rales. Skin: Findings: No rash. Neurological: General: No focal deficit present. Mental Status: He is alert. Psychiatric: Mood and Affect: Mood normal. Assessment and Plan Diagnoses and all orders for this visit: 1. Sore throat (Primary) - POC Rapid Strep A 2. Screening for colon cancer - Ambulatory Referral For Screening Colonoscopy 3. Fever, unspecified fever cause - POCT SARS-CoV-2 Antigen - POCT Influenza A/B 4. Difficult or painful urination - Urinalysis With Microscopic - Urine, Clean Catch; Future - PSA DIAGNOSTIC ONLY; Future 5. COPD with exacerbation - XR Chest PA & Lateral (In Office) Other orders - predniSONE (DELTASONE) 20 MG tablet; Take 2 tablets by mouth Daily. Dispense: 10 tablet; Refill: 0 - azithromycin (ZITHROMAX) 250 MG tablet; Take 2 tablets the first day, then 1 tablet daily for 4 days. Dispense: 6 tablet; Refill: 0 Copd exacerbation Prednisone and x devyn Check chest xray Patients o2 low at 93. Given this I asked him if he prefers to go to er for inpatient treatment (IV). He says he feels okay so he prefers outpatient treatment. I gave him strict er precautions to go to er for any chest pain, sob, fever. I asked him to obtain home o2 cuff and go to er if o2 below 90. Will have him come in 3 days for lung check. I discussed with the patient that these meds, prednisone and z devyn, can make him more likely to bleed and can change inr on warfarin. He is agreeable to contact [facility] today to make them aware of his new meds for monitoring. Urinary symptoms Check psa and UA ADDENDUM I went back in the room before having patient leave. He reported a cold sweat. O2 dropped to 90 percent. Given this we revisited going to er and he prefers this as o2 is dropping. He is agreeable to going to [facility] er, directions given. He declines transport. Return in about 2 days (around 01/01/2025) for check up on copd exacerbation. Isatu Aviles D.O. [facility] Primary Care Araceli Parisi documented in this encounter Plan of Treatment Upcoming Encounters Date Type Department Care Team (Late st Contact Info) Description 03/12/2025 8:30 AM EDT Office Visit [facility] [address] [place] [phone] Rae Truong, PYTHON ENGINEER [address] [place] [address] 04/29/2025 9:30 AM EDT Office Visit [facility] [address] [place] [phone] Fauzia Sterling MD [address] [address] Scheduled Orders Name Type Priority Associated Diagnoses Orde r Schedule Urinalysis With Microscopic - Urine, Clean Catch Lab Panel Routine Difficult or painful urination Expected: 12/30/2024 (Approximate), Expires: 04/01/2026 PSA DIAGNOSTIC ONLY Lab Routine Difficult or painful urination Expected: 01/04/2025 (Approximate), Expires: 04/01/2026 XR Chest PA & Lateral (In Office) Imaging Routine COPD with exacerbation Ordered: 12/30/2024 Scheduled Referrals Name Type Priority Associated Diagnoses Order Schedule Ambulatory Referral For Screening Colonoscopy Outpatient Referral Routine Screening for colon cancer Ordered: 12/30/2024 documented as of this encounter Goals Goal [...] Procedure Name Priority Date/Time Associated Diagnosis Comments POC SARS ANTIGEN Routine 12/30/2024 9:11 AM EDT Fever, unspecified fever cause POCT INFLUENZA A/B Routine 12/30/2024 9: 10 AM EDT Fever, unspecified fever cause POCT RAPID STREP A Routine 12/30/2024 8: 40 AM EDT Sore throat documented in this encounter Results * POCT SARS-CoV-2 Antigen (12/30/2024 9:11 AM EDT) Pathologist [facility] SARS Antigen Not Detected Not Detected, Presumptive Negative Internal Control Passed Passed Lot Number [id number] Expiration Date 12/30/2024 Swab Nasopharyngeal structure / Unknown 12/30/2024 9:11 AM EDT us Isatu Aviles DO POINT OF CARE TEST ORDERABLES F inal Result * POCT Influenza A/B (12/30/2024 9:10 AM EDT) Pathologist [facility] Rapid Influenza A Ag Negative Negative [facility] Rapid Influenza B Ag Negative Negative [facility] Internal Control Passed Passed [facility] Lot Number [id number] [facility] Expiration Date 05/08/2026 [facility] Swab 12/30/2024 9:10 AM EDT [employer] POINT OF CARE TEST ORDERABLES F inal Result Performing Organization Address City/[facility]/ZIP Co de Phone Number [facility]
[address] [id number], [place] [phone] * POC Rapid Strep A (12/30/2024 8:40 AM EDT) Pathologist [facility] Rapid Strep A Screen Negative Negative, VALID, INVALID, Not Performed [facility] Internal Control Passed Passed [facility] Lot Number [id number] [facility] Expiration Date 10/02/2026 [facility] Swab 12/30/2024 8:40 AM EDT [employer] POINT OF CARE TEST ORDERABLES F inal Result Performing Organization Address City/[facility] Co de Phone Number [facility]
[address] [id number], [place] [phone] documented in this encounter Visit Diagnoses Diagnosis Sore throat- Primary Acute pharyngitis Screening for colon cancer Special screening for malignant neoplasms, colon Fever, unspecified fever cause Difficult or painful urination Dysuria COPD with exacerbation documented in this encounter Additional Health Concerns Active Problems Noted Date Diagnosed Date Hypertension (Hypertension) 05/08/2024 Disease Progression (Hypertension) 05/08/2024 Resistant Hypertension (Hypertension) 05/08/2024 Infection Onset Date Last Indicated Resolved Time COVID (rule out) 12/30/2024 12/30/2024 12/30/2024 9:12 AM EDT documented as of this encounter Care Teams [employer] Consultant Relationship Specialty Start Date End Date Fauzia Sterling MD [address] [place] [address] PCP - General Family Medicine 09/03/18 documented as of this encounter
--- OUTSIDE RECORDS SUMMARY | 2024-12-30 09:52 | XMS_ITS | Encounter Summary ---
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 Role Phone Fauzia Sterling MD Primary Care Provider [phone] Reason for Visit * Reason Comments Shortness of Breath Encounter Details Date Type Department Care Team (Late st Contact Info) Description 12/30/2024 9:52 AM EDT - 12/30/2024 11:10 AM EDT Emergency [facility] EMERGENCY DEPARTMENT [address] [phone] John Wilson MD [address] [place] [address] COPD exacerbation (Primary Dx) Discharge Disposition: Home or Self Care Social History Tobacco Use Types Packs/Day Years Used Date Smoking Tobacco: Every Day Cigarettes 1 35 Passive Smoke Exposure: Current Smokeless Tobacco: Never Comments:Smoking 1-1 1/2 pac k a day Alcohol Use Standard Drinks/Week Comments No 0 (1 standard drink = 0.6 oz pur e alcohol) [facility] Utilities Answer Date Recorded In the past 12 months has e electric, gas, oil, or water company [...] any time in the past 12 m [facility], were you homeless or living in a halfway (including now)? No 11/18/2024 Abuse Screen Answer [...] Sign Reading Time Taken Comments Blood Pressure 109/68 12/30/2024 11:00 AM EDT Pulse 62 12/30/2024 11:00 AM EDT Temperature 36.8 C (98.2 F) 12/30/2024 9:51 AM EDT Respiratory Rate 16 12/30/2024 10:30 AM EDT Oxygen Saturation 90% 12/30/2024 11:00 AM EDT Inhaled Oxygen Concentration - - Weight 106 kg (234 lb) 12/30/2024 9:51 AM EDT Height 175.3 cm (5' 9 ) 12/30/2024 9:51 AM EDT Body Mass Index 34.56 12/30/2024 9:51 AM EDT documented in this encounter Functional Status * Calculated C-SSRS Risk Score (Lifetime/Recent) Answer Date of Assessment Author No Risk Indicated 12/30/2024 9:53 AM EDT Yoni Bobby, RN * Dana Suicide Severity Rating Scale (Screener/Recent Self-Report) Question Answer Date of Assessment Author 1. Wish to be (Past 1 Month) No 025 9:53 AM EDT Yoni Bobby, RN 2. Non-Specific Active Suici sean Thoughts (Past 1 Month) No 12/30/2024 9:53 AM EDT Blayne Bobby RN 6. Suicidal Behavior (Lifetime) No 5 9:53 AM EDT Yoni Bobby, RN documented as of this encounter Medications at Time of Discharge acetaminophen (TYLENOL) 325 MG tablet Take 2 tablets by mouth Daily As Needed for Mild Pain. aspirin 81 MG tabletIndications :Tobacco abuse,Essential hypertension,Ches t pain on exertion Take 1 tablet by mouth Daily. 30 tablet 3 7 atorvastatin (LIPITOR) 20 MG tablet Take 1 tablet by mouth once daily 30 tablet 1 5 buprenorphine-nal oxone (SUBOXONE) 8-2 MG per SL tablet 1 tablet Daily. 9 cetirizine (zyrTEC) 10 MG tabletIndications :Seasonal allergic rhinitis due to pollen Take 1 tablet by mouth once daily 30 tablet 11 5 divalproex (DEPAKOTE) [address] tabletIndications :Chronic daily headache Take 1 tablet by mouth 2 (Two) Times a Day. 180 tablet 0 escitalopram (LEXAPRO) 20 MG tabletIndications :Anxiety Take 1 tablet by mouth Daily. 90 tablet 3 4 ferrous sulfate 325 (65 FE) MG tablet Take 1 tablet by mouth Daily With Breakfast. hydrOXYzine pamoate (VISTARIL) 50 MG capsule Take 1 capsule by mouth 3 (Three) Times a Day As Needed for Anxiety for up to 20 doses. 20 capsule 4 lactulose (CHRONULAC) 10 GM/15ML solutionIndicatio ns:Constipation, unspecified constipation type Take 30 mL by mouth 2 (Two) Times a Day As Needed (constipation). 473 mL 1 5 lisinopril-hydroc hlorothiazide (PRINZIDE,ZESTORE TIC) 20-12.5 MG per tabletIndications :Essential (primary) hypertension Take 2 tablets by mouth once daily 180 tablet 5 Needle, Disp, (Hypodermic Needle) 23G X 1 miscIndications:L ow testosterone in male Use 1 Device As Needed (Injection of Testosterone). 50 each 11 4 Needle, Disp, 18G X 1-1/2 miscIndications:L ow testosterone in male Use for drawing up the medication 50 each 3 4 potassium chloride (KLOR-CON M20) 20 MEQ CR tabletIndications :Renovascular hypertension Take 1 tablet by mouth once daily 90 tablet 5 warfarin (COUMADIN) 5 MG tabletIndications :Anticoagulant long-term use TAKE 1 TO 2 TABLETS BY MOUTH ONCE DAILY DIRECTED BY ANTICOAGULATION CLINIC 90 tablet 4 amLODIPine (NORVASC) 10 MG tabletIndications :Essential hypertension Take 1 tablet by mouth once daily 90 tablet 5 01/29/20 25 azithromycin (ZITHROMAX) 250 MG tablet Take 1 tablet by mouth Daily. TAKE 2 TABLETS BY MOUTH ON DAY 1, AND THEN TAKE 1 TABLET BY MOUTH ONCE A DAY ON DAY 2 THROUGH DAY 5 5 01/06/20 25 busPIRone (BUSPAR) 5 MG tabletIndications :Anxiety Take 1 tablet by mouth twice daily 180 tablet 5 01/27/20 25 carvedilol (COREG) 25 MG tabletIndications :Essential hypertension TAKE 1 TABLET BY MOUTH TWICE DAILY WITH MEALS 60 tablet 5 01/13/20 25 omeprazole (priLOSEC) 40 MG capsuleIndication s:Gastroesophagea l reflux disease without esophagitis Take 1 capsule by mouth once daily 90 capsule 5 01/08/20 25 Ventolin HFA 108 (90 Base) MCG/ACT inhalerIndication s:COPD with exacerbation INHALE 2 PUFFS BY MOUTH EVERY 4 HOURS NEEDED FOR WHEEZING 36 g 5 01/20/20 25 warfarin (COUMADIN) 10 MG tabletIndications :Anticoagulant long-term use TAKE 1 TABLET BY MOUTH ONCE DAILY OR DIRECTED BY ANTICOAGULATION CLINIC. TAKE ON DIFFERENT DAYS THAN 5 MG 30 tablet 5 01/20/20 25 documented as of this encounter Miscellaneous Notes * [facility] Provider Note - John Wilson MD - 12/30/2024 9:50 AM EDT Images from the original note were not included. Subjective History of Present Illness: Patient was seen this morning at [facility]. Was able to review their note. Patient was seen for sore throat and headache for 2 to 3 days. He had a fever of 101. He had wheezing on exam in the office. He had a rapid strep a, two-view chest x-ray, urinalysis, COVID/flu test in the office. He was prescribed azithromycin and prednisone for COPD exacerbation. Oxygen saturation was 93% which was felt to be low. When he ambulated to leave, it decreased was 90% and he was told to come to the ER. He does have a history of COPD. Also takes warfarin for prior VTE. Testing this morning showed negative strep, negative COVID and flu. Nurses Notes reviewed and agree, including vitals, allergies, social history and prior medical history. REVIEW OF SYSTEMS: All systems reviewed and not pertinent unless noted. Past Medical History: Diagnosis Date Anticoagulated on warfarin Arthritis COPD (chronic obstructive pulmonary disease) Decreased sexual interest DVT, recurrent, lower extremity, chronic Erectile dysfunction ? H/O blood clots Hypertension Nocturia Plantar fasciitis Allergies: Cefdinir and Penicillins Past Surgical History: Procedure Laterality Date CARDIAC CATHETERIZATION N/A 02/12/2020 Procedure: Left Heart Cath; Surgeon: Terry Bustillo MD; Location: [facility]; Service: Cardiovascular; Laterality: N/A; FOOT SURGERY Left FOOT SURGERY Right Social History Socioeconomic History Marital status: Single Tobacco Use Smoking status: Every Day Current packs/day: 1.00 Average packs/day: 1 pack/day for 35.0 years (35.0 ttl pk-yrs) Types: Cigarettes Passive exposure: Current Smokeless tobacco: Never Tobacco comments: Smoking 1-1 1/2 pack a day Vaping Use Vaping status: Never Used Substance and Sexual Activity Alcohol use: No Drug use: Not Currently Types: Amphetamines Sexual activity: Not Currently Partners: Female Family History Problem Relation Age of Onset Arthritis Mother Hypertension Mother Leukemia Father Cancer Father Hypertension Brother Hyperlipidemia Brother No Known Problems Maternal Grandmother No Known Problems Maternal Grandfather No Known Problems Paternal Grandmother No Known Problems Paternal Grandfather Objective Physical Exam: BP 105/66 Pulse 60 Temp 98.2 ??F (36.8 ??C) (Oral) Resp 16 Ht 175.3 cm (69 ) Wt 106 kg (234 lb) SpO2 92% BMI 34.56 kg/m?? Physical Exam Primary Survey Airway: Patent and protected Breathing: Symmetric bilaterally Circulation: Mentating well, responsive Constitutional: Nontoxic appearance. Psychological: No abnormalities of mood affect. Head: Atraumatic Eyes: Conjunctiva are non-injected. no scleral icterus. ENT: No obvious congestion or obstruction noted Neck: No obvious deformity. ROM appears preserved Chest: No deformity noted. No paradoxical breathing noted Respiratory: Respiratory effort was normal - no use of accessory respiratory muscles noted. There is no stridor. Expiratory wheeze noted in the bases Cardiovascular: Perfusion appears preserved - mentating well RRR no murmurs Gastrointestinal: Abdomen nondistended. Genitourinary: Not examined Lymphatic: Not examined Back: Not examined Musculoskeletal: Musculoskeletal system is grossly intact. There is no obvious deformity. Neurological: Face: No Asymmetry. Gross motor movement is intact in all 4 extremities. Walks and ambulates without difficulty. Patient exhibits normal speech. Skin: No Pallor no obvious bruising. No obvious rash. ED Course: Lab Results (last 24 hours) Procedure Component Value Units Date/Time POC Rapid Strep A [[id number]] Collected: 12/30/24 0840 Specimen: Swab Updated: 12/30/24 0841 Rapid Strep A Screen Negative Internal Control Passed Lot Number [id number] Expiration Date 10/02/2026 POCT Influenza A/B [[id number]] Collected: 12/30/24 0910 Specimen: Swab Updated: 12/30/24 09 Rapid Influenza A Ag Negative Rapid Influenza B Ag Negative Internal Control Passed Lot Number [id number] Expiration Date 05/08/2026 POCT SARS-CoV-2 Antigen [[id number]] Collected: 12/30/24 09 Specimen: Swab from Nasopharynx Updated: 12/30/24 09 SARS Antigen Not Detected Internal Control Passed Lot Number [id number] Expiration Date 12/30/2024 CBC & Differential [[id number]] (Abnormal) Collected: 12/30/24 1002 Specimen: Blood Updated: 12/30/24 1009 Narrative: The following orders were created for panel order CBC & Differential. Procedure Abnormality Status --------- ------ CBC Auto Differential[[id number]] Abnormal Final result Please view results for these tests on the individual orders. Comprehensive Metabolic Panel [[id number]] (Abnormal) Collected: 12/30/24 1002 Specimen: Blood Updated: 12/30/24 1030 Glucose 140 mg/dL BUN 13.0 mg/dL Creatinine 1.03 mg/dL Sodium 140 mmol/L Potassium 4.4 mmol/L Chloride 102 mmol/L CO2 27.6 mmol/L Calcium 9.4 mg/dL Total Protein 6.9 g/dL Albumin 4.0 g/dL ALT (SGPT) 18 U/L AST (SGOT) 26 U/L Alkaline Phosphatase 112 U/L Total Bilirubin 0.5 mg/dL Globulin 2.9 gm/dL A/G Ratio 1.4 g/dL BUN/Creatinine Ratio 12.6 Anion Gap 10.4 mmol/L eGFR 83.2 mL/min/1.73 Narrative: GFR Categories in Chronic Kidney Disease (CKD) GFR Category GFR (mL/min/1.73) Interpretation G1 90 or greater Normal or high (1) G2 60-89 Mild decrease (1) G3a 45-59 Mild to moderate decrease G3b 30-44 Moderate to severe decrease G4 15-29 Severe decrease G5 14 or less Kidney failure (1)In the absence of evidence of kidney disease, neither GFR category G1 or G2 fulfill the criteriafor CKD. eGFR calculation 2020 CKD-EPI creatinine equation, which does not include race as a factor BNP [[id number]] (Normal) Collected: 12/30/24 1002 Specimen: Blood Updated: 12/30/24 1026 proBNP 423.0 pg/mL Narrative: This assay is used as an aid in the diagnosis of individuals suspected of having heart failure. It can be used as an aid in the diagnosis of acute decompensated heart failure (ADHF) in patients presenting with signs and symptoms of ADHF to the emergency department (ED). In addition, NT-proBNP of <300 pg/mL indicates ADHF is not likely. Age Range Result Interpretation NT-proBNP Concentration (pg/mL: <50 Positive >450 Flores 300-450 Negative <300 50-75 Positive >900 Flores 300-900 Negative <300 >75 Positive >1800 Flores 300-1800 Negative <300 High Sensitivity Troponin T [[id number]] (Normal) Collected: 12/30/241001 Specimen: Blood Updated: 12/30/24 1025 HS Troponin T <6 ng/L CBC Auto Differential [[id number]] (Abnormal) Collected: 12/30/24 1002 Specimen: Blood Updated: 12/30/24 1009 WBC 6.57 10*3/mm3 RBC 5.05 10*6/mm3 Hemoglobin 15.2 g/dL Hematocrit 44.3 % MCV 87.7 fL MCH 30.1 pg MCHC 34.3 g/dL RDW 12.6 % RDW-SD 41.4 fl MPV 9.1 fL Platelets 166 10*3/mm3 Neutrophil % 67.0 % Lymphocyte % 14.5 % Monocyte % 15.2 % Eosinophil % 2.6 % Basophil % 0.5 % Immature Grans % 0.2 % Neutrophils, Absolute 4.41 10*3/mm3 Lymphocytes, Absolute 0.95 10*3/mm3 Monocytes, Absolute 1.00 10*3/mm3 Eosinophils, Absolute 0.17 10*3/mm3 Basophils, Absolute 0.03 10*3/mm3 Immature Grans, Absolute 0.01 10*3/mm3 Protime-INR [[id number]] (Abnormal) Collected: 12/30/24 1002 Specimen: Blood Updated: 12/30/24 1021 Protime 23.5 Seconds INR 2.02 XR Chest 1 View Result Date: 12/30/2024 XR CHEST 1 VW Date of Exam: 12/30/2024 9:56 AM EDT Indication: SOA triage protocol Comparison: CT chest 11/18/2024 Findings: Normal cardiomediastinal silhouette. The lungs are clear. No pleural effusion or pneumothorax. No acute osseous findings. Impression: Impression: No acute cardiopulmonary findings. Electronically Signed: Quinten Esquivel MD 12/30/2024 10:41 AM EDT Workstation ID: [id number] ECG 12 Lead Dyspnea Preliminary Result Test Reason : Dyspnea Blood Pressure : */* mmHG Vent. Rate : 64 BPM Atrial Rate : 64 BPM P-R Int : 214 ms QRS Dur : 78 ms QT Int : 408 ms P-R-T Axes : 56 21 54 degrees QTcB Int : 420 ms Sinus rhythm with 1st degree AV block Otherwise normal ECG When compared with ECG of 05-May-2024 10:37, premature atrial complexes are no longer present Criteria for Inferior infarct are no longer present Referred By: Confirmed By: Procedures MDM Initial impression of presenting illness : Vital signs reviewed -nonactionable. 59-year-old male with COPD presenting emergency department after being seen by primary care with concern for COPD exacerbation. He has had upper respiratory symptoms recently which he attributes to a new air conditioner. Mild expiratory wheezes on exam. My initial pre-test probability for an emergent process is low. His COPD is likely related to a viral process/upper respiratory infection. Lower suspicion for bacterial pneumonia. He does have prior VTE but is anticoagulated on warfarin. Will check his INR. He has no exertional dyspnea. No chest pain. No lightheadedness. In the setting of COPD oxygen saturation is considered normal between 88 and92%. I am not significantly alarmed by his current presentation. No suspicion for pneumothorax or pleural effusion. Laboratory studies and chest x-ray obtained Initial treatment of presenting symptoms: DuoNeb. any diagnostic and therapeutic plan was ordered and interpreted by Eula Wilson MD with emphasis on identifying and treating emergent/urgent morbid conditions likely associated with the differential diagnosis with this type of presentation. ED Course as of 12/30/24 1101 Tue Dec 30, 2024 1053 Labs nonactionable. INR appropriate [ABDIAZIZ] 1053 Cxr nonactionable. [ABDIAZIZ] 1053 No hypoxia on the monitor [ABDIAZIZ] 1056 Patient remained stable. Patient likely has either environmental allergy causing his reactive airway/COPD exacerbation or has developed a viral infection. Much lower suspicion for bacterial component however he is being treated for atypical pneumonia with azithromycin sent by his primary care. He is also on appropriate prednisone provided by primary care. He needs no additional care from the emergency department. His oxygen saturation has remained within normal limits for someone with COPD. His oxygen saturation is 95%at discharge. A COPD patient is considered to have normal oxygen saturation with a Pleth between 88and 92%. No suspicion for pulmonary embolism as he is appropriately anticoagulated on warfarin. [ABDIAZIZ] ED Course User Index [ABDIAZIZ] John Wilson MD Medications sodium chloride 0.9 % flush 10 mL (has no administration in time range) ipratropium-albuterol (DUO-NEB) nebulizer solution 3 mL (3 mL Nebulization Given 12/30/24 1030) HEART SCORE No data recorded ----- ED Disposition ED Disposition Discharge Condition Stable Comment -- Final diagnoses: COPD exacerbation Your Follow-Up Providers Schedule an appointment as soon as possible for a visit with Fauzia Sterling MD. Specialty: Family Medicine Follow up details: As needed [facility] [place] [address] Contact information for after-discharge care Follow-up information has not been specified. Your medication list CONTINUE taking these medications Instructions Last Dose Given Next Dose Due acetaminophen 325 MG tablet Commonly known as: TYLENOL Take 2 tablets by mouth Daily As Needed for Mild Pain. amLODIPine 10 MG tablet Commonly known as: NORVASC Take 1 tablet by mouth once daily aspirin 81 MG tablet Take 1 tablet by mouth Daily. atorvastatin 20 MG tablet Commonly known as: LIPITOR Take 1 tablet by mouth once daily azithromycin 250 MG tablet Commonly known as: ZITHROMAX Take 2 tablets the first day, then 1 tablet daily for 4 days. buprenorphine-naloxone 8-2 MG per SL tablet Commonly known as: SUBOXONE 1 tablet Daily. busPIRone 5 MG tablet Commonly known as: BUSPAR Take 1 tablet by mouth twice daily carvedilol 25 MG tablet Commonly known as: COREG TAKE 1 TABLET BY MOUTH TWICE DAILY WITH MEALS cetirizine 10 MG tablet Commonly known as: zyrTEC Take 1 tablet by mouth once daily divalproex [address] tablet Commonly known as: DEPAKOTE Take 1 tablet by mouth 2 (Two) Times a Day. escitalopram 20 MG tablet Commonly known as: LEXAPRO Take 1 tablet by mouth Daily. ferrous sulfate 325 (65 FE) MG tablet Take 1 tablet by mouth Daily With Breakfast. hydrOXYzine pamoate 50 MG capsule Commonly known as: VISTARIL Take 1 capsule by mouth 3 (Three) Times a Day As Needed for Anxiety for up to 20 doses. Hypodermic Needle 23G X 1 misc Use 1 Device As Needed (Injection of Testosterone). lactulose 10 GM/15ML solution Commonly known as: CHRONULAC Take 30 mL by mouth 2 (Two) Times a Day As Needed (constipation). lisinopril-hydrochlorothiazide 20-12.5 MG per tablet Commonly known as: PRINZIDE,ZESTORETIC Take 2 tablets by mouth once daily Needle (Disp) 18G X 1-07/24 misc Use for drawing up the medication omeprazole 40 MG capsule Commonly known as: priLOSEC Take 1 capsule by mouth once daily potassium chloride 20 MEQ CR tablet Commonly known as: KLOR-CON M20 Take 1 tablet by mouth once daily predniSONE 20 MG tablet Commonly known as: DELTASONE Take 2 tablets by mouth Daily. Ventolin HFA 108 (90 Base) MCG/ACT inhaler Generic drug: albuterol sulfate HFA INHALE 2 PUFFS BY MOUTH EVERY 4 HOURS NEEDED FOR WHEEZING warfarin 5 MG tablet Commonly known as: COUMADIN TAKE 1 TO 2 TABLETS BY MOUTH ONCE DAILY DIRECTED BY ANTICOAGULATION CLINIC warfarin 10 MG tablet Commonly known as: COUMADIN TAKE 1 TABLET BY MOUTH ONCE DAILY OR DIRECTED BY ANTICOAGULATION CLINIC. TAKE ON DIFFERENT DAYS THAN 5 MG documented in this encounter Plan of Treatment Upcoming Encounters Date Type Department Care Team (Late st Contact Info) Description 03/12/2025 8:30 AM EDT Office Visit [facility] [address] [place] [phone] Rae Truong, SANITARY PLUMBER [address] [place] [address] 04/29/2025 9:30 AM EDT Office Visit [facility] [address] [phone] Fauzia Sterling MD [address] [phone] documented as of this encounter Goals Goal [...] Care Plan Hypertension (Hypertension) No Claudia Reno, JAYCEE Note: Evidence-based guidance: Promote initial use of [...] Treatment Maximized Care Plan Resistant Hypertension (Hypertension) Claudia Ward, RN Note: Evidence-based guidance: Assess patient response [...] Name Priority Date/Time Associated Diagnosis Comments XR CHEST 1 VW STAT 12/30/2024 10:11 AM EDT FLORES TOP STAT 12/30/2024 10:02 AM EDT GOLD TOP - SST STAT 12/30/2024 10:02 AM EDT DK GREEN TOP STAT 12/30/2024 10:02 AM EDT CBC WITH AUTO DIFFERENTIAL STAT 12/30/2024 10:02 AM EDT LAVENDER TOP STAT 12/30/2024 10:02 AM EDT LIGHT BLUE TOP STAT 12/30/2024 10:02 AM EDT RAINBOW DRAW STAT 12/30/2024 10:02 AM EDT TROPONIN STAT 12/30/2024 10:02 AM EDT PROTIME-INR STAT 12/30/2024 10:02 AM EDT CBC AND DIFFERENTIAL STAT 12/30/2024 10:02 AM EDT B-TYPE NATRIURETIC PEPTIDE STAT 12/30/2024 10:02 AM EDT COMPREHENSIVE METABOLIC PANEL STAT 12/30/2024 10:02 AM EDT ECG 12-LEAD STAT 12/30/2024 9:50 AM EDT documented in this encounter Results * XR Chest 1 View (12/30/2024 10:11 AM EDT) Anatomical Region Laterality Modality Body N/A Radiographic Leslie ging 12/30/2024 10:3 3 AM EDT Impressions 12/30/2024 10:41 AM EDT Impression: No acute cardiopulmonary findings. Electronically Signed: Quinten Esquivel MD 12/30/2024 10:41 AM EDT Workstation ID: [id number] Narrative 12/30/2024 10:41 AM EDT XR CHEST 1 VW Date of Exam: 12/30/2024 9:56 AM EDT Indication: SOA triage protocol Comparison: CT chest 11/18/2024 Findings: Normal cardiomediastinal silhouette. The lungs are clear. No pleural effusion or pneumothorax. No acute osseous findings. Procedure Note Quinten Esquivel MD - 12/30/2024 XR CHEST 1 VW Date of Exam: 12/30/2024 9:56 AM EDT Indication: SOA triage protocol Comparison: CT chest 11/18/2024 Findings: Normal cardiomediastinal silhouette. The lungs are clear. No pleuraleffusion or pneumothorax. No acute osseous findings. IMPRESSION: Impression: No acute cardiopulmonary findings. Electronically Signed: Quinten Esquivel MD 12/30/2024 10:41 AM EDT Workstation ID: [id number] John Wilson MD [facility] DI[facility]NOST[facility] Final Result * (ABNORMAL) Protime-INR (12/30/2024 10:02 AM EDT) Protime 23.5(H) 12.2 - 14.5 Seconds 12/30/2024 10:21 AM EDT [facility] INR 2.02(H) 0.89 - 1.12 12/30/2024 10:21 AM EDT [facility] Blood Venipuncture / Unknown 12/30/2024 10:02 AM EDT 12/30/2024 10:05 AM EDT us John Wilson MD LAB BLOOD ORDERABLES Final Result [facility]
[address] [place] [address], [place] * (ABNORMAL) CBC Auto Differential (12/30/2024 10:02 AM EDT) WBC 6.57 3.40 - 10.80 10*3/mm3 12/30/2024 10:09 AM EDT [facility] RBC 5.05 4.14 - 5.80 10*6/mm3 12/30/2024 10:09 AM EDT [facility] Hemoglobin 15.2 13.0 - 17.7 g/dL 12/30/2024 10:09 AM [facility] Hematocrit 44.3 37.5 - 51.0 % 12/30/2024 10:09 AM T [facility] MCV 87.7 79.0 - 97.0 fL 12/30[facility]2024 [facility] MCH 30.1 26.6 - 33.0 pg 12/30/2024 10:09 AM [facility] MCHC 34.3 31.5 - 35.7 g/dL 12/30/2024 10:[facility] RDW 12.6 12.3 - 15.4 % 12/30/2024 10:09 AM T [facility] RDW-SD 41.4 37.0 - 54.0 fl 12/30/2024 10:09 [facility] MPV 9.1 6.0 - 12.0 fL 12/30/2024 10:09 AM [facility] Platelets 166 140 - 450 10*3/mm3 12/30/2024 10:09 AM [facility] Neutrophil % 67.0 42.7 - 76.0 % 12/30/2024 10:09 AM [facility] Lymphocyte % 14.5(L) 19.6 - 45.3 % 12/30/2024 10:09 [facility] Monocyte % 15.2(H) 5.0 - 12.0 % 12/30/2024 10:09 AM [facility] Eosinophil % 2.6 0.3 - 6.2 % 12/30/2024 10:09 AM [facility] Basophil % 0.5 0.0 - 1.5 % 12/30/2024 10:09 [facility] Immature Grans % 0.2 0.0 - 0.5 % 12/30/2024 10:09 AM [facility] Neutrophils, Absolute 4.41 1.70 - 7.00 10*3/mm3 12/30/2024 10:09 AM [facility] Lymphocytes, Absolute 0.95 0.70 - 3.10 10*3/mm3 12/30/2024 10:09 AM [facility] Monocytes, Absolute 1.00(H) 0.10 - 0.90 10*3/mm3 12/30/2024 10:09 AM [facility] Eosinophils, Absolute 0.17 0.00 - 0.40 10*3/mm3 12/30/2024 10:09 AM [facility] Basophils, Absolute 0.03 0.00 - 0.20 10*3/mm3 12/30/2024 10:09 AM [facility] Immature Grans, Absolute 0.01 0.00 - 0.05 10*3/mm3 12/30/2024 10:09 AM [facility] [facility] Blood Venipuncture / Unknown 12/30/2024 10:02 AM EDT 12/30/2024 10:05 AM EDT us John Wilson MD LAB BLOOD ORDERABLES Final Result [facility]
[address] [place] [address], [place] * Light Blue Top (12/30/2024 10:02 AM EDT) Extra Tube Hold for add-ons. 12/30/2024 10:15 AM EDT [facility] Comment:Auto resulted Blood Venipuncture / Unknown 12/30/2024 10:02 AM EDT 12/30/2024 10:05 AM EDT John Wilson MD LAB BLOOD ORDER ONLY Final Result [facility]
[address] [facility] [address] [place] [address], [place] * Flores Top (12/30/2024 10:02 AM EDT) Extra Tube Hold for add-ons. 12/30/2024 10:15 AM EDT [facility] Comment:Auto resulted. Blood Venipuncture / Unknown 12/30/2024 10:02 AM EDT 12/30/2024 10:05 AM EDT John Wilson MD LAB BLOOD ORDER ONLY Final Result [facility]
[address] [place] [address], [place] * Gold Top - SST (12/30/2024 10:02 AM EDT) Extra Tube Hold for add-ons. 12/30/2024 10:15 AM EDT [facility] Comment:Auto resulted. Blood Venipuncture / Unknown 12/30/2024 10:02 AM EDT 12/30/2024 10:05 AM EDT John Wilson MD LAB BLOOD ORDER ONLY Final Result [facility]
[address] [facility] [address] [place] [address], [place] * Lavender Top (12/30/2024 10:02 AM EDT) Extra Tube hold for add-on 12/30/2024 10:15 AM EDT [facility] Comment:Auto resulted Blood Venipuncture / Unknown 12/30/2024 10:02 AM EDT 12/30/2024 10:05 AM EDT John Wilson MD LAB BLOOD ORDER ONLY Final Result [facility]
[address] [facility] [address] [place] [address], [place] * Green Top (Gel) (12/30/2024 10:02 AM EDT) Extra Tube Hold for add-ons. 12/30/2024 10:15 AM EDT [facility] Comment:Auto resulted. Blood Venipuncture / Unknown 12/30/2024 10:02 AM EDT 12/30/2024 10:05 AM EDT John Wilson MD LAB BLOOD ORDER ONLY Final Result [facility]
[address] [place] [address], [place] * High Sensitivity Troponin T (12/30/2024 10:02 AM EDT) HS Troponin T <6 <22 ng/L 12/30/2024 10:25 AM EDT [facility] Blood Venipuncture / Unknown 12/30/2024 10:02 AM EDT 12/30/2024 10:05 AM EDT John Wilson MD LAB BLOOD ORDERABLES Final Result [facility]
[address] [facility] [address] [place] [address], [place] * BNP (12/30/2024 10:02 AM EDT) proBNP 423.0 0.0 - 900.0 pg/mL 12/30/2024 10:26 AM EDT [facility] Blood Venipuncture / Unknown 12/30/2024 10:02 AM EDT 12/30/2024 10:05 AM EDT Narrative [facility] - 12/30/2024 10:26 AM EDT This assay is used as an aid in the diagnosis of individuals suspected of having heart failure. It can be used as an aid in the diagnosis of acute decompensated heart failure (ADHF) in patients presenting with signs and symptoms of ADHF to the emergency department (ED). In addition, NT-proBNP of <300 pg/mL indicates ADHF is not likely. Age Range Result Interpretation NT-proBNP Concentration (pg/mL: <50 Positive >450 Flores 300-450 Negative <300 50-75 Positive >900 Flores 300-900 Negative <300 >75 Positive >1800 Flores 300-1800 Negative <300 us John Wilson MD LAB BLOOD ORDERABLES Final Result [facility]
[address] [facility] [address] [place] [id number], * (ABNORMAL) Comprehensive Metabolic Panel (12/30/2024 10:02 AM EDT) Glucose 140(H) 65 - 99 mg/dL 12/30/2024 10:30 AM EDT [facility] BUN 13.0 8.0 - 23.0 mg/dL 12/30/2024 10:30 AM T [facility] Creatinine 1.03 0.76 - 1.27 mg/dL 12/30/2024 10:30 AM T [facility] Sodium 140 136 - 145 mmol/L 12/30/2024 10:30 AM EDT [facility] Potassium 4.4 3.5 - 5.2 mmol/L 12/30/2024 10:30 AM T [facility] Chloride 102 98 - 107 mmol/L 12/30/2024 10:30 AM [facility] CO2 27.6 22.0 - 29.0 mmol/L 12/30/2024 10:30 AM [facility] Calcium 9.4 8.6 - 10.5 mg/dL 12/30/2024 10:30 AM [facility] Total Protein 6.9 6.0 - 8.5 g/dL 12/30/2024 10:30 AM [facility] Albumin 4.0 3.5 - 5.2 g/dL 12/30/2024 10:30 AM [facility] ALT (SGPT) 18 1 - 41 U/L 12/30/2024 10:30 AM [facility] AST (SGOT) 26 1 - 40 U/L 12/30/2024 10:30 AM [facility] Alkaline Phosphatase 112 39 - 117 U/L 12/30/2024 10:30 AM [facility] Total Bilirubin 0.5 0.0 - 1.2 mg/dL 12/30/2024 10:30 AM [facility] Globulin 2.9 gm/dL 12/30/2024 10:30 AM [facility] A/G Ratio 1.4 g/dL 12/30/2024 10:30 AM [facility] BUN/Creatinine Ratio 12.6 7.0 - 25.0 12/30/2024 10:30 AM [facility] Anion Gap 10.4 5.0 - 15.0 mmol/L 12/30/2024 10:30 AM [facility] eGFR 83.2 >60.0 mL/min/1.7 3 12/30/2024 10:30 AM [facility] Blood Venipuncture / Unknown 12/30/2024 10:02 AM EDT 12/30/2024 10:05 AM [facility] - 12/30/2024 10:30 AM [facility] GFR Categories in Chronic Kidney Disease (CKD) GFR Category GFR (mL/min/1.73) Interpretation G1 90 or greater Normal or high (1) G2 60-89 Mild decrease (1) G3a 45-59 Mild to moderate decrease G3b 30-44 Moderate to severe decrease G4 15-29 Severe decrease G5 14 or less Kidney failure (1)In the absence of evidence of kidney disease, neither GFR category G1 or G2 fulfill the criteria for CKD. eGFR calculation 2020 CKD-EPI creatinine equation, which does not include race as a factor John Wilson MD LAB BLOOD ORDERABLES Final Result [facility]
[address] [place] [address], * ECG 12 Lead Dyspnea (12/30/2024 9:50 AM EDT) QT Interval 408 ms ECG QTC Interval 420 ms ECG 12/30/2024 9:50 AM EDT 12/30/2024 6:03 PM EDT Narrative ECG - 12/30/2024 6:03 PM EDT Test Reason : Dyspnea Blood Pressure : */* mmHG Vent. Rate : 64 BPM Atrial Rate : 64 BPM P-R Int : 214 ms QRS Dur : 78 ms QT Int : 408 ms P-R-T Axes : 56 21 54 degrees QTcB Int : 420 ms Sinus rhythm with 1st degree AV block Otherwise normal ECG When compared with ECG of 05-May-2024 10:37, premature atrial complexes are no longer present Criteria for Inferior infarct are no longer present Confirmed by John Wilson ([id number]) on 12/30/2024 6:03:48 PM Referred By: Confirmed By: John Wilson Procedure Note John Wilson MD - 12/30/2024 Test Reason : Dyspnea Blood Pressure : */* mmHG Vent. Rate : 64 BPM Atrial Rate : 64 BPM P-R Int : 214 ms QRS Dur : 78 ms QT Int : 408 ms P-R-T Axes : 56 21 54 degrees QTcB Int : 420 ms Sinus rhythm with 1st degree AV block Otherwise normal ECG When compared with ECG of 05-May-2024 10:37, premature atrial complexes are no longer present Criteria for Inferior infarct are no longer present Confirmed by John Wilson ([id number]) on 12/30/2024 6:03:48 PM Referred By: Confirmed By: John Wilson John Wilson MD ECG ORDERABLES Final Resul t ECG documented in this encounter Visit Diagnoses Diagnosis COPD exacerbation- Primary Obstructive chronic bronchitis with exacerbation documented in this encounter Administered Medications Inactive Administered Medications - up to 3 most recent administrations Medication Order MAR Action Action Date Dose Rate Site ipratropium-albuterol (DUO-NEB) nebulizer solution 3 mL 3 mL, Nebulization, Once, On Sun12/30/24 at 1030, For 1 dose, Include Respiratory Treatment Education Given 12/30/2024 10:30 AM EDT 3 mL sodium chloride 0.9 % flush 10 mL 10 mL, Intravenous, As Needed, Line Care, Starting on Sun12/30/24 at 0948 documented in this encounter Active and Recently Administered Medications Times are shown in EDT. Scheduled Medication Order 12/28/2024 12/29/2024 12/30/2024 ipratropium-albuterol (DUO-NEB) nebulizer solution 3 mL (COMPLETED) 3 mL, Nebulization, Once, On Sun12/30/24 at 1030, For 1 dose, Include Respiratory Treatment Education 1030 (Given - Provid er: Trina Nielson, [employer]CTOR[employer]ER) PRN Medication Order 12/28/2024 12/29/2024 12/30/2024 sodium chloride 0.9 % flush 10 mL 10 mL, Intravenous, As Needed, Line Care, Starting on Sun12/30/24 at 0948 documented in this encounter Additional Health Concerns Active Problems Noted Date Diagnosed Date Hypertension (Hypertension) 05/08/2024 Disease Progression (Hypertension) 05/08/2024 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
--- OUTSIDE RECORDS SUMMARY | 2025-01-01 09:33 | XMS_ITS | Encounter Summary ---
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 Name Role Phone Fauzia Sterling MD Primary Care Provider [phone] Reason for Referral * Consultation (Routine) - Closed Specialty Diagnoses / Procedures Referred By Contac t Referred To Contact Pulmonary Disease / Pulmonology Diagnoses Acute hypoxic respiratory failure COPD with exacerbation Procedures [place] OFFICE/OUTPATIENT NEW MODERATE MDM 45 MINUTES Emory Jean PA [address] [facility] [address] [place] [address] Phone: tel: fax: [facility] [address] [place] [address] Phone: tel: fax: Referral ID Status Reason Start Date Expiration Date Visits Re quested Visits Authorized [id number] Closed 01/02/2025 04/03/2026 1 1 * Durable Medical Equipment (Routine) - Pending Review Specialty Diagnoses / Procedures Referred By Contac t Referred To Contact Diagnoses Acute hypoxic respiratory failure Infection due to parainfluenza virus 3 COPD exacerbation Procedures Oxygen Therapy Emory Jean PA [address] [facility] [address] [place] [address] Phone: tel: fax: Referral ID Status Reason Start Date Expiration Date V isits Requested Visits Authorized [id number] Pending Review 01/02/2025 04/03/2026 1 1 Reason for Visit * Reason Comments Shortness of Breath * Auth/Cert (Routine) Specialty Diagnoses / Procedures Referred By Contac t Referred To Contact Diagnoses COPD with acute exacerbation Referral ID Status Reason Start Date Expiration Date Visits Re quested Visits Authorized [id number] 1 1 Encounter Details Date Type Department Care Team (Latest Contact Info) Description 01/01/2025 9:33 AM EDT - 01/02/2025 1:34 PM EDT Hospital Encounter [facility] [place] [address] [phone] Vahid Joe DO [address] [place] [address] Acute hypoxic respiratory failure (Primary Dx); Infection due to parainfluenza virus 3; COPD exacerbation; COPD with acute exacerbation; COPD with exacerbation Discharge Disposition: Home or Self Care Social History Tobacco Use Types Packs/Day Years Used Date Smoking Tobacco: Every Day Cigarettes 1 35 Passive Smoke Exposure: Current Smokeless Tobacco: Never Comments:Smoking 1-1 1/2 pac k a day Alcohol Use Standard Drinks/Week Comments No 0 (1 standard drink = 0.6 oz pur e alcohol) [facility] Utilities Answer Date Recorded In the past 12 months has [employer], [employer], or water [employer] threatened to shut off services in your home? No 11/18/2024 AUDIT-C Answer Date Recorded Q1: How often do you have a drink containing alcohol? Never 01/01/2025 Q2: How many drinks containi ng alcohol do you have on a typical day when you are drinking? Patient does not drink Q3: How often do you have si x or more drinks on one occasion? Never 01/01/2025 Overall Financial Resource Strain (CARDIA) Answe r [...] any time in the past 12 m [facility], were you homeless or living in a retirement (including now)? No 11/18/2024 Abuse Screen Answer Date Recorded Feels Unsafe at Home or Work/School no 01/01/2025 Feels Threatened by Someone no 12/21 Does Anyone Try to Keep You From Having Contact with Others or Doing Things Outside Your Home? no 01/01/2025 Physical Signs of Abuse Present no 01/01/2025 Housing Stability Answer Date Recorded Current Living Arrangements home 12/21 Potentially Unsafe Housing Conditions none 01/01/2025 Amb Case Mgmt Answer Date Recorded Help with Reading Health-Related Information nev er 11/18/2024 Problems Learning about Medical Condition never 11/18/2024 Confidence in Filling Out Forms by Self always 11/18/2024 Employment Answer Date Recorded Do you want help finding or keeping work or a job? I do not need or want help 11/18/2024 Disabilities Answer Date Recorded Difficulty Concentrating, Remembering or Making Decisions no 01/01/2025 Difficulty Managing Errands Independently no 01/01/2025 PHQ-2 Answer Date Recorded Patient Health Questionnaire-9 Score 0 10/14/2024 Sex and Gender Information Value Date Recorded Sex Assigned at Not on file Legal Sex Male 12:07 PM EDT Gender Identity Not on file Sexual Orientation Not on file documented as of this encounter Last Filed Vital Signs Vital Sign Reading Time Taken Comments Blood Pressure 117/75 01/02/2025 1:00 PM EDT Pulse 65 01/02/2025 1:00 PM EDT Temperature 36.7 C (98.1 F) 01/02/2025 1:00 PM EDT Respiratory Rate 20 01/02/2025 1:00 PM EDT Oxygen Saturation 91% 01/02/2025 1:00 PM EDT Inhaled Oxygen Concentration - - Weight 104 kg (230 lb) 01/01/2025 9:31 AM EDT Height 175.3 cm (5' 9 ) 01/01/2025 9:31 AM EDT Body Mass Index 33.97 01/01/2025 9:31 AM EDT documented in this encounter Functional Status * Calculated C-SSRS Risk Score (Lifetime/Recent) Answer Date of Assessment Author No Risk Indicated 01/01/2025 9:33 AM EDT Rosio Rouse RN * [place] Suicide Severity Rating Scale (Screener/Recent Self-Report) Question Answer Date of Assessment Author 1. Wish to be (Past 1 Month) No 025 9:33 AM EDT Rosio Rouse RN 2. Non-Specific Active Suici sean Thoughts (Past 1 Month) No 01/01/2025 9:33 AM EDT Rosa Rouse RN 6. Suicidal Behavior (Lifetime) No 9:33 AM EDT Rosio Rouse RN documented as of this encounter Discharge Summaries * Emory Jean PA - 01/02/2025 12:50 PM EDT [facility] CDU DISCHARGE SUMMARY Patient Name: Jesus Perales : 1965 Date of Admission: 01/01/2025 Date of Discharge: 01/02/25 Primary Care Physician: Fauzia Sterling MD Presenting Problem: COPD with acute exacerbation [J44.1] Active and Resolved Hospital Problems: Active Hospital Problems Diagnosis POA COPD with acute exacerbation [J44.1] Yes Resolved Hospital Problems No resolved problems to display. HPI: Patient is a 59-year-old male who presents emergency department today with concerns of nasal congestion, nonproductive cough and some shortness of breath for the past week. Patient was evaluatedboth at his primary care physician's office in addition to this emergency department. Patient was evaluated here on 12/30 and prescribed both steroids in addition to a Z-Jose. Patient states he has been taking the medications as prescribed. Patient states he has felt like he has not gotten better. Patient denies any chills. Patient admits to a fever of 102 degrees Fahrenheit at home. Patient deniesany chest pain, pressure or discomfort. Patient states he feels like he has phlegm stuck in the middle of his chest that he cannot cough up at this time. Patient states he has been having a mild productive cough. Patient denies any nausea or vomiting. Patient denies any fevers or chills. Patient denies any recent ill contacts. Patient admits to nasal congestion and rhinorrhea. Patient has a history of COPD. Patient smokes approximately a pack of cigarettes daily however over the past 3 days he has had less than half a pack. Patient has never needed supplemental oxygen. Patient is currently onwarfarin for history of DVTs. Patient denies any history of heart attack or stroke. Hospital Course: Patient is a 59-year-old male with a medical history of DVT on warfarin, COPD, 1 pack-a-day smoker presents to the emergency department yesterday for cough, dyspnea, fever. Patient was admitted to the CDU overnight as he was found to have new oxygen requirement staying on 3 L nasalcannula maintaining oxygen saturation of 90%. Patient does not usually wear oxygen at home. No evidence of pneumonia on CT chest and chest x-ray. Patient received DuoNeb treatment, steroids, azithromycin. Patient was observed overnight in the CDU without complication. On reevaluation patient denieschest pain, dizziness, syncope is feeling well. Patient still requires 3 L nasal cannula to maintain oxygen saturation 90%. No significant adventitious sounds on auscultation. Discussed plans of admission versus discharging home with oxygen and a nebulizer machine and patient would like to discharge home. Utilized able care and patient is set up with home oxygen and nebulizing machine. Patient received an oxygen take in the CDU. Patient will be given referral for pulmonology for recheck of symptoms. Patient instructed to continue antibiotic as well as steroids previously prescribed. Patient is given very strict return precautions to the emergency department. Patient was ambulated on 3 L nasal cannula did not have oxygen desaturation. Nurses Notes reviewed and agree, including vitals, allergies, social history and prior medical history. REVIEW OF SYSTEMS: All systems reviewed and not pertinent unless noted. Review of Systems Respiratory: Positive for cough and shortness of breath. All other systems reviewed and are negative. Past Medical History: Diagnosis Date Anticoagulated on warfarin Arthritis COPD (chronic obstructive pulmonary disease) Decreased sexual interest DVT, recurrent, lower extremity, chronic Erectile dysfunction ? H/O blood clots Hypertension Nocturia Plantar fasciitis Allergies: Cefdinir and Penicillins Past Surgical History: Procedure Laterality Date CARDIAC CATHETERIZATION N/A 02/12/2020 Procedure: Left Heart Cath; Surgeon: Terry Bustillo MD; [facility]; Service: Cardiovascular; Laterality: N/A; [...] Problems Paternal Grandfather Objective Physical Exam: BP 115/76 (BP Location: Right arm, Patient Position: Sitting) Pulse 64 Temp 98.1 ??F (36.7 ??C)(Oral) Resp 18 Ht 175.3 cm (69 ) Wt 104 kg (230 lb) SpO2 92% BMI 33.97 kg/m?? Physical Exam Vitals and nursing note reviewed. Constitutional: General: He is not in acute distress. Appearance: He is not toxic-appearing. HENT: Head: Normocephalic and atraumatic. Nose: Nose normal. Mouth/Throat: Mouth: Mucous membranes are moist. Eyes: Extraocular Movements: Extraocular movements intact. Conjunctiva/sclera: Conjunctivae normal. Pupils: Pupils are equal, round, and reactive to light. Cardiovascular: Rate and Rhythm: Normal rate and regular rhythm. Pulses: Normal pulses. Heart sounds: Normal heart sounds. No murmur heard. Pulmonary: Effort: Pulmonary effort is normal. Breath sounds: Normal breath sounds. No stridor. No wheezing or rhonchi. Comments: Oxygen saturation 90% on 3 L nasal cannula Abdominal: General: Bowel sounds are normal. There is no distension. Palpations: Abdomen is soft. Musculoskeletal: General: No deformity. Normal range of motion. Cervical back: Normal range of motion and neck supple. Right lower leg: No edema. Left lower leg: No edema. Skin: General: Skin is warm and dry. Capillary Refill: Capillary refill takes less than 2 seconds. Findings: No erythema or rash. Neurological: General: No focal deficit present. Mental Status: He is alert and oriented to person, place, and time. Cranial Nerves: No cranial nerve deficit. Sensory: No sensory deficit. Coordination: Coordination normal. Gait: Gait normal. Psychiatric: Mood and Affect: Mood normal. Behavior: Behavior normal. Procedures CT Angiogram Chest Pulmonary Embolism Result Date: 01/01/2025 CT ANGIOGRAM CHEST PULMONARY EMBOLISM Date of Exam: 01/01/2025 10:50 AM EDT Indication: Pulmonary Embolism. Comparison: Chest radiograph from earlier today and CT chest from November 18, 2024 Technique: Axial CT images were obtained of the chest after the uneventful intravenous administration of 75 mL Isovue-370 utilizing pulmonary embolism protocol. In addition, a 3-D volume rendered image was created for interpretation. Reconstructed coronal and sagittal images were also obtained. Automated exposure control and iterative construction methods were used. Findings: The central tracheobronchial tree is clear. The lungs are clear. There is no pleural effusion. The heart size appears normal. The great vessels are normal in caliber. There is no evidence of pulmonary embolus. No abnormally enlargedlymph nodes are identified. 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 No aggressive osseous lesions are identified. Impression: Impression: 1.Negative for pulmonary embolus. 2.No acute cardiopulmonary process. 3.Left adrenal myolipoma. Electronically Signed: Leo Feng MD 01/01/2025 11:23 AM EDT Workstation ID: [id number] XR Chest 1 View Result Date: 01/01/2025 XR CHEST 1 VW Date of Exam: 01/01/2025 9:40 AM EDT Indication: SOA triage protocol Comparison: 12/30/2024 Findings: The lungs appear adequately aerated without consolidation or mass. No pleural effusion or pneumothorax is identified. The cardiomediastinal silhouette and pulmonary vasculature appear wi thin normal limits. No acute or suspicious osseous lesion is identified. Impression: Impression: 1.No acute radiographic abnormality is identified. Electronically Signed: Andrey Munoz MD 01/01/2025 9:45 AM EDT Workstation ID: [id number] No results found for: SITE , ALLENTEST , PHART , GGK4PLI , PO2ART , IZN0OEX , BASEEXCESS , R3QIXFTN , HGBBG , HCTABG , OXYHEMOGLOBI , METHHGBN , CARBOXYHGB , CO2CT , BAROMETRIC , MODALITY , FIO2 Results from last 7 days Lab Units 01/01/25 1115 01/01/25 0944 12/30/24 1002 HSTROP T ng/L <6 <6 <6 Results from last 7 days Lab Units 01/02/25 0550 01/01/25 0944 12/30/24 1002 WBC 10*3/mm3 12.81* 7.42 6.57 HEMOGLOBIN g/dL 14.7 15.3 15.2 HEMATOCRIT % 41.8 44.2 44.3 PLATELETS 10*3/mm3 154 131* 166 Results from last 7 days Lab Units 01/02/25 0550 01/01/25 0944 12/30/24 1002 SODIUM mmol/L 138 134* 140 POTASSIUM mmol/L 4.5 4.1 4.4 CHLORIDE mmol/L 102 98 102 CO2 mmol/L 26.3 24.8 27.6 BUN mg/dL 25.1* 19.5 13.0 CREATININE mg/dL 0.87 0.96 1.03 CALCIUM mg/dL 9.5 9.3 9.4 BILIRUBIN mg/dL 0.3 0.4 0.5 ALK PHOS U/L 99 88 112 ALT (SGPT) U/L 15 15 18 AST (SGOT) U/L 21 28 26 GLUCOSE mg/dL 130* 167* 140* Lab Results Component Value Date CHOL 102 11/04/2024 CHLPL 143 04/03/2023 TRIG 111 11/04/2024 HDL 29 (L) 11/04/2024 LDL 52 11/04/2024 Results from last 7 days Lab Units 01/02/25 0550 01/01/25 0944 12/30/24 1002 PROTIME Seconds 25.5* 22.6* 23.5* INR 2.24* 1.92* 2.02* No results found for: URINECX @lastfindings;urinedrugscreen@ ED Disposition ED Disposition Decision to Admit Condition -- Comment -- Discharge Medication List: Your medication list START taking these medications Instructions Last Dose Given Next Dose Due ipratropium-albuterol 0.5-2.5 mg/3 ml nebulizer Commonly known as: DUO-NEB Take 3 mL by nebulization Every 4 (Four) Hours As Needed for Wheezing. CONTINUE taking these medications Instructions Last Dose Given Next Dose Due Hypodermic Needle 23G X 1 misc Use 1 Device As Needed (Injection of Testosterone). Needle (Disp) 18G X 1-1/2 misc Use for drawing up the medication ASK your doctor about these medications Instructions Last Dose Given Next [...] 250 MG tablet Commonly known as: ZITHROMAX Ask about: Which instructions should I use? Take 1 tablet by mouth Daily. TAKE 2 TABLETS BY MOUTH ON DAY 1, AND THEN TAKE 1 TABLET BY MOUTH ONCE A DAY ON DAY 2 THROUGH DAY 5 buprenorphine-naloxone 8-2 MG per SL tablet Commonly [...] for Anxiety for up to 20 doses. lactulose 10 GM/15ML solution Commonly known as: CHRONULAC Take 30 mL by mouth 2 (Two) Times a Day As Needed (constipation). lisinopril-hydrochlorothiazide 20-12.5 MG per tablet Commonly known as: PRINZIDE,ZESTORETIC Take 2 tablets by mouth once daily omeprazole 40 MG capsule Commonly known as: [...] TAKE ON DIFFERENT DAYS THAN 5 MG Where to Get Your Medications These medications were sent to [facility] [address] [place] [address] - [phone] [address] ipratropium-albuterol 0.5-2.5 mg/3 ml nebulizer CYNTHIA Dietrich 01/02/25 12:55 EDT Time Spent on Discharge: I spent 60 minutes on this discharge activity which included: [id number] with the patient, reviewing the data in the system, coordination of the care with the nursing staff as well as consultants, documentation, and entering orders. Cosigned by Vahid Joe DO at 01/02/2025 3:11 PM EDT Associated attestation - Vahid Joe DO - 01/02/2025 3:11 PM EDT I have reviewed the notes, assessments, and/or procedures performed by Marc, I concur with her/his documentation of Jesus Perales. documented in this encounter Discharge Instructions * Discharge Instructions* Emory Jean PA - 01/02/2025 12:50 PM EDT Follow-up with PCP for recheck of symptoms. You have been given referral for pulmonology for recheck of COPD. Symptoms are likely exacerbated due to the parainfluenza 3 virus. You have been given a prescription for oxygen to wear 3 L at all times. Monitor O2 saturation. Utilize nebulizing machine and DuoNeb solutions every 4 hours as needed for wheezing and shortness of breath. Have low thresholdto return the emergency department for new, worsening, concerning symptoms. Do not smoke while wearing oxygen. * Attachments The following attachments cannot be sent through Care Everywhere. * Acute Respiratory Failure Adult ([place]i) * COPD and Physical Activity ([place]i) * Chronic Obstructive Pulmonary Disease ([place]i) * Living With COPD ([place]i) documented in this encounter Medications at Time of Discharge [...] up to 20 doses. 20 capsule 4 ipratropium-albut glenn (DUO-NEB) 0.5-2.5 mg/3 ml nebulizer Take 3 mL by nebulization Every 4 (Four) Hours As Needed for Wheezing. 360 mL 5 lactulose (CHRONULAC) 10 GM/15ML solutionIndicatio ns:Constipation, unspecified [...] once daily 90 capsule 5 01/08/20 25 predniSONE (DELTASONE) 20 MG tablet Take 2 tablets by mouth Daily. 10 tablet 5 01/06/20 25 Ventolin HFA 108 (90 Base) MCG/ACT [...] 01/20/20 25 documented as of this encounter Progress Notes * Adi Barron PA-C - 01/02/2025 5:37 AM EDT [facility] Progress Note Patient Name: Jesus Perales : 1965 Primary Care Physician: Fauzia Sterling MD Date of admission: 01/01/2025 Subjective Subjective Chief Complaint: Shortness of Breath Patient Reports some improvement in overall condition but still feels that he is not able to catch his breath. Review of Systems Respiratory: Positive for shortness of breath. Objective Objective Vitals: Temp: [98.1 ??F (36.7 ??C)-98.4 ??F (36.9 ??C)] 98.4 ??F (36.9 ??C) Heart Rate: [53-66] 64 Resp: [12-18] 14 BP: (99-127)/(60-76) 99/60 Flow (L/min) (Oxygen Therapy): [3] 3 Physical Exam HENT: Head: Normocephalic and atraumatic. Eyes: Extraocular Movements: Extraocular movements intact. Pupils: Pupils are equal, round, and reactive to light. Cardiovascular: Rate and Rhythm: Normal rate and regular rhythm. Pulmonary: Effort: Pulmonary effort is normal. Breath sounds: Wheezing present. Abdominal: General: Abdomen is flat. Palpations: Abdomen is soft. Musculoskeletal: General: Normal range of motion. Skin: General: Skin is warm and dry. Capillary Refill: Capillary refill takes less than 2 seconds. Neurological: General: No focal deficit present. Mental Status: He is alert and oriented to person, place, and time. Mental status is at baseline. Result Review Result Review: I have personally reviewed the results from the time of this admission to 01/02/2025 05:40 EDT and agree with these findings: [x] Laboratory list / accordion [] Microbiology [x] Radiology [] EKG/Telemetry [] Cardiology/Vascular [] Pathology [] Old records [] Other: Most notable findings include: Positive parainfluenza on respiratory viral test. CTA of the chest shows no obvious pulmonary emboli. Assessment & Plan Assessment / Plan Brief Patient Summary: Jesus Perales is a 59 y.o. male with a past medical history COPD, high blood pressure, DVT, PE, anxiety, acid reflux who presented to the emergency department with 1 week history of nasal congestion, a productive cough, and shortness of breath. Patient had been seen at both his primary cares office and here in the emergency department. He was prescribed steroids and a Z-Jose (he's on day 3). Hestates he has been taking the medication as prescribed but is not feeling any better. Patient was found to be hypoxic in the ED in the upper 80s, he was placed on 2 to 3 L via nasal cannula. Temperature Tmax 102 at home. He denies any chest pain, abdominal pain, nausea, or vomiting. Patient was found to be positive for parainfluenza 3 on his RVP. He will therefore be admitted to the clinical decision unit overnight for neb treatments and steroids. Patient states he typically smokes a pack to a pack and a half daily for the past 30 years. Patientis prescribed inhalers but states he does not have a nebulizer machine at home. He also states he does not have oxygen at home. He states he has questionable sleep apnea but has never had a sleep study. Patient also has a history of a DVT as well as a pulmonary embolism, he is chronically on Warfarin. Active Hospital Problems: Active Hospital Problems Diagnosis COPD with acute exacerbation Plan: COPD exacerbation: - Patient to receive every 4 hours DuoNebs and supplemental oxygen as needed. - Patient will be ambulated prior to discharge if they are oxygen drops below 90% while ambulating we will set them up with home oxygen and home nebulizer. - Patient to be discharged with steroids and follow-up with pulmonology VTE Prophylaxis: Pharmacologic & mechanical VTE prophylaxis orders are present. CODE STATUS: Code Status (Patient has no pulse and is not breathing): CPR (Attempt to Resuscitate) Medical Interventions (Patient has pulse or is breathing): Full Support Level Of Support Discussed With: Patient Disposition: I expect patient to be discharged later today. Adi Barron PA-C Cosigned by Marek Pate DO at 01/09/2025 9:11 AM EDT Associated attestation - Marek Pate DO - 01/09/2025 9:11 AM EDT SUPERVISE: For this patient encounter, I reviewed the APC's documentation, treatment plan, and medical decision making. Marek Pate DO 01/09/2025 09:11 EDT documented in this encounter H&P Notes * Kelsey Voss PA-C - 01/01/2025 3:09 PM EDT Images from the original note were not included. [facility] ENCOUNTER Pt Name: Jesus Perales Birthdate: 1965 Date of evaluation: 01/01/2025 Provider: Kelsey Voss PA-C CHIEF COMPLAINT Chief Complaint Patient presents with Shortness of Breath HISTORY OF PRESENT ILLNESS (Location/Symptom, Timing/Onset, Context/Setting, Quality, Duration, Modifying Factors, Severity.) Jesus Perales is a 59 y.o. male with a past medical history COPD, high blood pressure, DVT, PE, anxiety, acid reflux who presented to the emergency department with 1 week history of nasal congestion, a productive cough, and shortness of breath. Patient had been seen at both his primary cares office and here in the emergency department. He was prescribed steroids and a Z-Jose (he's on day 3). Hestates he has been taking the medication as prescribed but is not feeling any better. Patient was found to be hypoxic in the ED in the upper 80s, he was placed on 2 to 3 L via nasal cannula. Temperature Tmax 102 at home. He denies any chest pain, abdominal pain, nausea, or vomiting. Patient was found to be positive for parainfluenza 3 on his RVP. He will therefore be admitted to the clinical decision unit overnight for neb treatments and steroids. Patient states he typically smokes a pack to a pack and a half daily for the past 30 years. Patientis prescribed inhalers but states he does not have a nebulizer machine at home. He also states he does not have oxygen at home. He states he has questionable sleep apnea but has never had a sleep study. Patient also has a history of a DVT as well as a pulmonary embolism, he is chronically on Warfarin. Nursing notes were reviewed. REVIEW OF SYSTEMS (2-9 systems for level 4, 10 or more for level 5) Review of Systems Constitutional: Negative for chills and fever. HENT: Negative for ear pain and sore throat. Respiratory: Positive for cough and shortness of breath. Cardiovascular: Negative for chest pain. Gastrointestinal: Negative for abdominal pain, diarrhea, nausea and vomiting. Genitourinary: Negative for dysuria and frequency. Neurological: Negative for dizziness and headaches. All other systems reviewed and are negative. All systems reviewed and negative except for those discussed in HPI. PAST MEDICAL HISTORY Past Medical History: Diagnosis Date Anticoagulated on warfarin Arthritis COPD (chronic obstructive pulmonary disease) Decreased sexual interest DVT, recurrent, lower extremity, chronic Erectile dysfunction ? H/O blood clots Hypertension Nocturia Plantar fasciitis SURGICAL HISTORY Past Surgical History: Procedure Laterality Date CARDIAC CATHETERIZATION N/A 02/12/2020 Procedure: Left Heart Cath; Surgeon: Terry Bustillo MD; [facility]; Service: Cardiovascular; Laterality: N/A; FOOT SURGERY Left FOOT SURGERY Right CURRENT MEDICATIONS Current Facility-Administered Medications: acetaminophen (TYLENOL) tablet 650 mg, 650 mg, Oral, Daily PRN, Kelsey Voss PA-C albuterol (PROVENTIL) nebulizer solution 0.083% 2.5 mg/3mL, 2.5 mg, Nebulization, Q6H PRN, Kelsey Voss PA-C amLODIPine (NORVASC) tablet 10 mg, 10 mg, Oral, Daily, Kelsey Voss PA-C aspirin chewable tablet 81 mg, 81 mg, Oral, Once, Timi Baird PharmD atorvastatin (LIPITOR) tablet 20 mg, 20 mg, Oral, Daily, Kelsey Voss PA-C busPIRone (BUSPAR) tablet 5 mg, 5 mg, Oral, BID, Kelsey Voss PA-C carvedilol (COREG) tablet 25 mg, 25 mg, Oral, BID With Meals, Kelsey Voss PA-C cetirizine (zyrTEC) tablet 10 mg, 10 mg, Oral, Daily, Kelsey Voss PA-C escitalopram (LEXAPRO) tablet 20 mg, 20 mg, Oral, Daily, Kelsey Voss PA-C ferrous sulfate tablet 325 mg, 325 mg, Oral, Daily With Breakfast, Kelsey Voss PA-C lisinopril (PRINIVIL,ZESTRIL) tablet 20 mg, 20 mg, Oral, Q24H AND hydroCHLOROthiazide tablet 12.5 mg, 12.5 mg, Oral, Q24H, Kelsey Voss PA-C methylPREDNISolone sodium succinate (SOLU-Medrol) injection 80 mg, 80 mg, Intravenous, Q8H, Kelsey Voss PA-C, 80 mg at 01/01/25 1359 [START ON 01/02/2025] pantoprazole (PROTONIX) EC tablet 40 mg, 40 mg, Oral, Q AM, Kelsey Voss PA-C Pharmacy to dose warfarin, , Not Applicable, Continuous PRN, Kelsey Voss PA-C potassium chloride (KLOR-CON M20) CR tablet 20 mEq, 20 mEq, Oral, Daily, Kelsey Voss PA-C sodium chloride 0.9 % flush 10 mL, 10 mL, Intravenous, PRN, Kelsey Voss, PA-C sodium chloride 0.9 % flush 10 mL, 10 mL, Intravenous, Q12H, Kelsey Voss, PA-C, 10 mL at 01/01/25 1354 sodium chloride 0.9 % flush 10 mL, 10 mL, Intravenous, PRN, Kelsey Voss, PA-C sodium chloride 0.9 % infusion 40 mL, 40 mL, Intravenous, PRN, Kelsey Voss, PA-C [START ON 01/02/2025] warfarin (COUMADIN) tablet 10 mg, 10 mg, Oral, Once per day on Sunday, Timi Baird PharmD warfarin (COUMADIN) tablet 5 mg, 5 mg, Oral, Once per day on Sunday, Timi Baird PharmD ALLERGIES Cefdinir and Penicillins FAMILY HISTORY Family History Problem Relation Age of Onset Arthritis Mother Hypertension Mother Leukemia Father Cancer Father Hypertension Brother Hyperlipidemia Brother No Known Problems Maternal Grandmother No Known Problems Maternal Grandfather No Known Problems Paternal Grandmother No Known Problems Paternal Grandfather SOCIAL HISTORY Social History Socioeconomic History Marital status: Single [...] Amphetamines Sexual activity: Not Currently Partners: Female PHYSICAL EXAM (up to 7 for level 4, 8 or more for level 5) Physical Exam Vitals and nursing note reviewed. Constitutional: Appearance: Normal appearance. He is obese. HENT: Head: Normocephalic and atraumatic. Eyes: Extraocular Movements: Extraocular movements intact. Pupils: Pupils are equal, round, and reactive to light. Cardiovascular: Rate and Rhythm: Normal rate and regular rhythm. Pulses: Normal pulses. Pulmonary: Effort: Pulmonary effort is normal. Breath sounds: Normal breath sounds. Comments: Resting comfortably on 3L. Abdominal: General: Abdomen is flat. Bowel sounds are normal. Palpations: Abdomen is soft. Musculoskeletal: General: Normal range of motion. Cervical back: Normal range of motion. Skin: General: Skin is warm and dry. Neurological: General: No focal deficit present. Mental Status: He is alert and oriented to person, place, and time. Psychiatric: Mood and Affect: Mood normal. DIAGNOSTIC RESULTS EKG: All EKGs are interpreted by the Emergency Department Physician who either signs or Co-signs this chart in the absence of a activities director scouting. ECG 12 Lead Dyspnea Preliminary Result Test Reason : Dyspnea Blood Pressure : */* mmHG Vent. Rate : 56 BPM Atrial Rate : 56 BPM P-R Int : 168 ms QRS Dur : 84 ms QT Int : 446 ms P-R-T Axes : -12 23 28 degrees QTcB Int : 430 ms Sinus bradycardia Otherwise normal ECG When compared with ECG of 01-Jan-2025 09:31, (Unconfirmed) No significant change was found Referred By: Confirmed By: ECG 12 Lead Dyspnea Preliminary Result Test Reason : Dyspnea Blood Pressure : */* mmHG Vent. Rate : 59 BPM Atrial Rate : 59 BPM P-R Int : 202 ms QRS Dur : 76 ms QT Int : 428 ms P-R-T Axes : 53 13 17 degrees QTcB Int : 423 ms Sinus bradycardia Low voltage QRS Borderline ECG When compared with ECG of 30-Dec-2024 09:50, No significant change was found Referred By: Confirmed By: RADIOLOGY: Non-plain film images such as CT, Ultrasound and MRI are read by the radiologist. Plain radiographic images are visualized and preliminarily interpreted by the emergency physician with the below findings: [x] Radiologist's Report Reviewed: CT Angiogram Chest Pulmonary Embolism Final Result Impression: 1.Negative for pulmonary embolus. 2.No acute cardiopulmonary process. 3.Left adrenal myolipoma. Electronically Signed: Leo Feng MD 01/01/2025 11:23 AM EDT Workstation ID: [id number] XR Chest 1 View Final Result Impression: 1.No acute radiographic abnormality is identified. Electronically Signed: Andrey Munoz MD 01/01/2025 9:45 AM EDT Workstation ID: [id number] ED BEDSIDE ULTRASOUND: Performed by ED Physician - none LABS: I have reviewed and interpreted all of the currently available lab results from this visit (if applicable): Results for orders placed or performed during the hospital encounter of 01/01/25 ECG 12 Lead Dyspnea Collection Time: 01/01/25 9:31 AM Result Value Ref Range QT Interval 428 ms QTC Interval 423 ms Comprehensive Metabolic Panel Collection Time: 01/01/25 9:44 AM Specimen: Blood Result Value Ref Range Glucose 167 (H) 65 - 99 mg/dL BUN 19.5 8.0 - 23.0 mg/dL Creatinine 0.96 0.76 - 1.27 mg/dL Sodium 134 (L) 136 - 145 mmol/L Potassium 4.1 3.5 - 5.2 mmol/L Chloride 98 98 - 107 mmol/L CO2 24.8 22.0 - 29.0 mmol/L Calcium 9.3 8.6 - 10.5 mg/dL Total Protein 6.6 6.0 - 8.5 g/dL Albumin 3.8 3.5 - 5.2 g/dL ALT (SGPT) 15 1 - 41 U/L AST (SGOT) 28 1 - 40 U/L Alkaline Phosphatase 88 39 - 117 U/L Total Bilirubin 0.4 0.0 - 1.2 mg/dL Globulin 2.8 gm/dL A/G Ratio 1.4 g/dL BUN/Creatinine Ratio 20.3 7.0 - 25.0 Anion Gap 11.2 5.0 - 15.0 mmol/L eGFR 90.5 >60.0 mL/min/1.73 BNP Collection Time: 01/01/25 9:44 AM Specimen: Blood Result Value Ref Range proBNP 241.0 0.0 - 900.0 pg/mL High Sensitivity Troponin T Collection Time: 01/01/25 9:44 AM Specimen: Blood Result Value Ref Range HS Troponin T <6 <22 ng/L CBC Auto Differential Collection Time: 01/01/25 9:44 AM Specimen: Blood Result Value Ref Range WBC 7.42 3.40 - 10.80 10*3/mm3 RBC 5.00 4.14 - 5.80 10*6/mm3 Hemoglobin 15.3 13.0 - 17.7 g/dL Hematocrit 44.2 37.5 - 51.0 % MCV 88.4 79.0 - 97.0 fL MCH 30.6 26.6 - 33.0 pg MCHC 34.6 31.5 - 35.7 g/dL RDW 12.7 12.3 - 15.4 % RDW-SD 41.3 37.0 - 54.0 fl MPV 9.3 6.0 - 12.0 fL Platelets 131 (L) 140 - 450 10*3/mm3 Neutrophil % 74.5 42.7 - 76.0 % Lymphocyte % 19.9 19.6 - 45.3 % Monocyte % 5.1 5.0 - 12.0 % Eosinophil % 0.3 0.3 - 6.2 % Basophil % 0.1 0.0 - 1.5 % Immature Grans % 0.1 0.0 - 0.5 % Neutrophils, Absolute 5.52 1.70 - 7.00 10*3/mm3 Lymphocytes, Absolute 1.48 0.70 - 3.10 10*3/mm3 Monocytes, Absolute 0.38 0.10 - 0.90 10*3/mm3 Eosinophils, Absolute 0.02 0.00 - 0.40 10*3/mm3 Basophils, Absolute 0.01 0.00 - 0.20 10*3/mm3 Immature Grans, Absolute 0.01 0.00 - 0.05 10*3/mm3 Protime-INR Collection Time: 01/01/25 9:44 AM Specimen: Blood Result Value Ref Range Protime 22.6 (H) 12.2 - 14.5 Seconds INR 1.92 (H) 0.89 - 1.12 Green Top (Gel) Collection Time: 01/01/25 9:44 AM Result Value Ref Range Extra Tube Hold for add-ons. Lavender Top Collection Time: 01/01/25 9:44 AM Result Value Ref Range Extra Tube hold for add-on Gold Top - SST Collection Time: 01/01/25 9:44 AM Result Value Ref Range Extra Tube Hold for add-ons. Flores Top Collection Time: 01/01/25 9:44 AM Result Value Ref Range Extra Tube Hold for add-ons. Light Blue Top Collection Time: 01/01/25 9:44 AM Result Value Ref Range Extra Tube Hold for add-ons. Respiratory Panel PCR w/COVID-19(SARS-CoV-2) SINA/JEZ/FLORA/PAD/COR/ROSALVA In-House, CONVEYOR MONITOR Swab in UTM/VTM, 2 HR TAT - Swab, Nasopharynx Collection Time: 01/01/25 9:48 AM Specimen: Nasopharynx; Swab Result Value Ref Range ADENOVIRUS, PCR Not Detected Not Detected Coronavirus 229E Not Detected Not Detected Coronavirus HKU1 Not Detected Not Detected Coronavirus NL63 Not Detected Not Detected Coronavirus OC43 Not Detected Not Detected COVID19 Not Detected Not Detected - Ref. Range Human Metapneumovirus Not Detected Not Detected Human Rhinovirus/Enterovirus Not Detected Not Detected Influenza A PCR Not Detected Not Detected Influenza B PCR Not Detected Not Detected Parainfluenza Virus 1 Not Detected Not Detected Parainfluenza Virus 2 Not Detected Not Detected Parainfluenza Virus 3 Detected (A) Not Detected Parainfluenza Virus 4 Not Detected Not Detected RSV, PCR Not Detected Not Detected Bordetella pertussis pcr Not Detected Not Detected Bordetella parapertussis PCR Not Detected Not Detected Chlamydophila pneumoniae PCR Not Detected Not Detected Mycoplasma pneumo by PCR Not Detected Not Detected ECG 12 Lead Dyspnea Collection Time: 01/01/25 11:13 AM Result Value Ref Range QT Interval 446 ms QTC Interval 430 ms High Sensitivity Troponin T 1Hr Collection Time: 01/01/25 11:15 AM Specimen: Blood Result Value Ref Range HS Troponin T <6 <22 ng/L Troponin T Numeric Delta Magnesium Collection Time: 01/01/25 11:15 AM Specimen: Blood Result Value Ref Range Magnesium 2.1 1.6 - 2.4 mg/dL *Note: Due to a large number of results and/or encounters for the requested time period, some results have not been displayed. A complete set of results can be found in Results Review. All other labs were within normal range or not returned as of this dictation. EMERGENCY DEPARTMENT COURSE and DIFFERENTIAL DIAGNOSIS/MDM: Vitals: Vitals: 01/01/25 1019 01/01/25 1022 01/01/25 1044 01/01/25 1045 BP: 117/67 BP Location: Patient Position: Pulse: 53 58 57 57 Resp: 12 Temp: TempSrc: SpO2: (S) (!) 87% 94% 96% 95% Weight: Height: ED Course as of 01/01/25 1536 Sadie Jan 01, 2025 104 Parainfluenza Virus 3(!): Detected [MV] ED Course User Index [MV] Leslie Arciniega PA-C MDM Patient will be observed overnight, albuterol nebs and steroids scheduled. Likely patient will be discharged home with a nebulizer machine, albuterol ampules, and home O2 as needed in the AM. MEDICATIONS ADMINISTERED IN ED: Medications acetaminophen (TYLENOL) tablet 650 mg (has no administration in time range) amLODIPine (NORVASC) tablet 10 mg (10 mg Oral Not Given 01/01/25 1351) atorvastatin (LIPITOR) tablet 20 mg (20 mg Oral Not Given 01/01/25 1352) busPIRone (BUSPAR) tablet 5 mg (5 mg Oral Not Given 01/01/25 1352) carvedilol (COREG) tablet 25 mg (has no administration in time range) cetirizine (zyrTEC) tablet 10 mg (10 mg Oral Not Given 01/01/25 1352) escitalopram (LEXAPRO) tablet 20 mg (20 mg Oral Not Given 01/01/25 1352) ferrous sulfate tablet 325 mg (has no administration in time range) lisinopril (PRINIVIL,ZESTRIL) tablet 20 mg (20 mg Oral Not Given 01/01/25 1353) And hydroCHLOROthiazide tablet 12.5 mg (12.5 mg Oral Not Given 01/01/25 1353) pantoprazole (PROTONIX) EC tablet 40 mg (has no administration in time range) potassium chloride (KLOR-CON M20) CR tablet 20 mEq (20 mEq Oral Not Given 01/01/25 1353) Pharmacy to dose warfarin (has no administration in time range) sodium chloride 0.9 % flush 10 mL (has no administration in time range) sodium chloride 0.9 % flush 10 mL (10 mL Intravenous Given 01/01/25 1354) sodium chloride 0.9 % flush 10 mL (has no administration in time range) sodium chloride 0.9 % infusion 40 mL (has no administration in time range) albuterol (PROVENTIL) nebulizer solution 0.083% 2.5 mg/3mL (has no administration in time range) methylPREDNISolone sodium succinate (SOLU-Medrol) injection 80 mg (80 mg Intravenous Given 01/01/25 1359) aspirin chewable tablet 81 mg (81 mg Oral Not Given 01/01/25 1352) warfarin (COUMADIN) tablet 10 mg (has no administration in time range) warfarin (COUMADIN) tablet 5 mg (has no administration in time range) ipratropium-albuterol (DUO-NEB) nebulizer solution 3 mL (3 mL Nebulization Given 01/01/25 0958) methylPREDNISolone sodium succinate (SOLU-Medrol) injection 125 mg (125 mg Intravenous Given 01/01/25 0956) ipratropium-albuterol (DUO-NEB) nebulizer solution 3 mL (3 mL Nebulization Given 01/01/25 1044) iopamidol (ISOVUE-370) 76 % injection 100 mL (75 mL Intravenous Given 01/01/25 1102) PROCEDURES: Procedures:none CRITICAL CARE TIME Total Critical Care time was 0 minutes, excluding separately reportable procedures. There was a high probability of clinically significant/life threatening deterioration in the patient's condition which required my urgent intervention. ADMISSION DIAGNOSIS 1. Acute hypoxic respiratory failure 2. Infection due to parainfluenza virus 3 3. COPD exacerbation DISPOSITION/PLAN 1) Acute hypoxic respiratory failure A) Albuterol nebs. B) Oxygen 2-3L via NC. C) Home O2 upon discharge. 2) Parainfluenza Virus 3 3) COPD Exacerbation A) Solumedrol 80mg q 8 hrs. B) Albuterol nebs. PATIENT REFERRED TO: No follow-up provider specified. ADMISSION MEDICATIONS: Medication List CONTINUE taking these medications Hypodermic Needle 23G X 1 misc Use 1 Device As Needed (Injection of Testosterone). Needle (Disp) 18G X 1-1/2 misc Use for drawing up the medication ASK your doctor about these medications acetaminophen 325 MG tablet Commonly known as: TYLENOL amLODIPine 10 MG tablet Commonly known as: NORVASC Take 1 tablet by mouth once daily aspirin 81 MG tablet Take 1 tablet by mouth Daily. atorvastatin 20 MG tablet Commonly known as: LIPITOR Take 1 tablet by mouth once daily azithromycin 250 MG tablet Commonly known as: ZITHROMAX Ask about: Which instructions should I use? buprenorphine-naloxone 8-2 MG per SL tablet Commonly known as: SUBOXONE busPIRone 5 MG tablet Commonly known as: [...] ferrous sulfate 325 (65 FE) MG tablet hydrOXYzine pamoate 50 MG capsule Commonly known as: VISTARIL Take 1 capsule by mouth 3 (Three) Times a Day As Needed for Anxiety for up to 20 doses. lactulose 10 GM/15ML solution Commonly known as: CHRONULAC Take 30 mL by mouth 2 (Two) Times a Day As Needed (constipation). lisinopril-hydrochlorothiazide 20-12.5 MG per tablet Commonly known as: PRINZIDE,ZESTORETIC Take 2 tablets by mouth once daily omeprazole 40 MG capsule Commonly known as: [...] MOUTH EVERY 4 HOURS NEEDED FOR WHEEZING * warfarin 5 MG tablet Commonly known as: COUMADIN TAKE 1 TO 2 TABLETS BY MOUTH ONCE DAILY DIRECTED BY ANTICOAGULATION CLINIC * warfarin 10 MG tablet Commonly known as: COUMADIN TAKE 1 TABLET BY MOUTH ONCE DAILY OR DIRECTED BY ANTICOAGULATION CLINIC. TAKE ON DIFFERENT DAYS THAN 5 MG * This list has 2 medication(s) that are the same as other medications prescribed for you. Read thedirections carefully, and ask your doctor or other care provider to review them with you. Comment: Please note this report has been produced using speech recognition software. Kelsey Voss PA-C Cosigned by Vahid Joe DO at 01/01/2025 5:06 PM EDT Associated attestation - Vahid Joe DO - 01/01/2025 5:06 PM EDT I have reviewed the notes, assessments, and/or procedures performed by Kelsey, I concur with her/his documentation of Jesus Perales. documented in this encounter Nursing Notes * Kate Antonio RN - 01/02/2025 1:15 PM EDT Problem: Adult Inpatient Plan of Care Goal: Plan of Care Review Outcome: Adequate for Care Transition Goal Outcome Evaluation: * Lakia Rivero RN - 01/02/2025 6:21 AM EDT Received male patient last night: Mental status: a&ox4 Ambulatory status: up ad karl Oxygen Therapy: 3L NC Cardiac Rhythm: nsr, bradycardic Admitted from: er Safety Concerns: unknown Precautions: na Social Issues: na Patient stayed on 3Lpm O2 over the night saturating 90-93% . Tried to lower O2 to 1 lpm but patientdesats to 88-89%, provider made aware. Noted episodes of bradycardia especially when patient was asleep. No complaints over the night, patient might go home with O2. * Yesi Pereira RN - 01/01/2025 1:12 PM EDT Problem: Adult Inpatient Plan of Care Goal: Plan of Care Review Outcome: Progressing Flowsheets (Taken 01/01/2025 1312) Progress: improving Plan of Care Reviewed With: patient Goal: Patient-Specific Goal (Individualized) Outcome: Progressing Goal: Absence of Hospital-Acquired Illness or Injury Outcome: Progressing Intervention: Identify and Manage Fall Risk Recent Flowsheet Documentation Taken 01/01/2025 1233 by Yesi Pereira RN Safety Promotion/Fall Prevention: safety round/check completed room organization consistent Goal: Optimal Comfort and Wellbeing Outcome: Progressing Goal: Readiness for Transition of Care Outcome: Progressing Problem: Comorbidity Management Goal: Maintenance of COPD Symptom Control Outcome: Progressing Goal Outcome Evaluation: Plan of Care Reviewed With: patient Progress: improving documented in this encounter ED Notes * Felicitas Caceres RN - 01/01/2025 12:03 PM EDT Jesus Perales Nursing Report ED to Floor: Mental status: a&ox4 Ambulatory status: up ad karl Oxygen Therapy: 3L NC Cardiac Rhythm: nsr Admitted from: er Safety Concerns: unknown Precautions: na Social Issues: na ED Room #: 11 ED Nurse Phone Extension - [phone] HPI: Chief Complaint Patient presents with Shortness of Breath Past Medical History: Past Medical History: Diagnosis Date Anticoagulated on warfarin Arthritis COPD (chronic obstructive pulmonary disease) Decreased sexual interest DVT, recurrent, lower extremity, chronic Erectile dysfunction ? H/O blood clots Hypertension Nocturia Plantar fasciitis Past Surgical History: Past Surgical History: Procedure Laterality Date CARDIAC CATHETERIZATION N/A 02/12/2020 Procedure: Left Heart Cath; Surgeon: Terry Bustillo MD; [facility]; Service: Cardiovascular; Laterality: N/A; FOOT SURGERY Left FOOT SURGERY Right Admitting Doctor: No admitting provider for patient encounter. Consulting Provider(s): Consults No orders found from 12/03/2024 to 01/02/2025. Admitting Diagnosis: The primary encounter diagnosis was Acute hypoxic respiratory failure. Diagnoses of Infection due to parainfluenza virus 3 and COPD exacerbation were also pertinent to this visit. Most Recent Vitals: Vitals: 01/01/25 1019 01/01/25 1022 01/01/25 1044 01/01/25 1045 BP: 117/67 BP Location: Patient Position: Pulse: 53 58 57 57 Resp: 12 Temp: TempSrc: SpO2: (S) (!) 87% 94% 96% 95% Weight: Height: Active LDAs/IV Access: Lines, Drains & Airways Active LDAs Name Placement date Placement time Site Days Peripheral IV 01/01/25 0943 20 G Right Antecubital 01/01/25 0943 Antecubital less than 1 Peripheral IV 01/01/25 1057 20 G Left Antecubital 01/01/25 1057 Antecubital less than 1 Labs (abnormal labs have a star): Labs Reviewed RESPIRATORY PANEL PCR W/ COVID-19 (SARS-COV-2), CONVEYOR MONITOR SWAB IN UTM/VTP, 2 HR TAT - Abnormal; Notable for the following components: Result Value Parainfluenza Virus 3 Detected (*) All other components within normal limits Narrative: In the setting of a positive respiratory panel with a viral infection PLUS a negative procalcitoninwithout other underlying concern for bacterial infection, consider observing off antibiotics or discontinuation of antibiotics and continue supportive care. If the respiratory panel is positive for atypical bacterial infection (Bordetella pertussis, Chlamydophila pneumoniae, or Mycoplasma pneumoniae), consider antibiotic de-escalation to target atypical bacterial infection. COMPREHENSIVE METABOLIC PANEL - Abnormal; Notable for the following components: Glucose 167 (*) Sodium 134 (*) All other components within normal limits Narrative: GFR Categories in Chronic Kidney Disease [...] does not include race as a factor CBC WITH AUTO DIFFERENTIAL - Abnormal; Notable for the following components: Platelets 131 (*) All other components within normal limits PROTIME-INR - Abnormal; Notable for the following components: Protime 22.6 (*) INR 1.92 (*) All other components within normal limits BNP (IN-HOUSE) - Normal Narrative: This assay is used as an [...] >75 Positive >1800 Flores 300-1800 Negative <300 TROPONIN - Normal RAINBOW DRAW Narrative: The following orders were created for panel order [place] Draw. Procedure Abnormality Status --------- ------ Green Top (Gel)[[id number]] Final result Lavender Top[[id number]] Final result Gold Top - SST[[id number]] Final result Flores Top[[id number]] Final result Light Blue Top[[id number]] Final result Please view results for these tests on the individual orders. HIGH SENSITIVITIY TROPONIN T 1HR Narrative: High Sensitive Troponin T Reference Range: <14.0 ng/L- Negative Female for AMI <22.0 ng/L- Negative Male for AMI >=14 - Abnormal Female indicating possible myocardial injury. >=22 - Abnormal Male indicating possible myocardial injury. Clinicians would have to utilize clinical acumen, EKG, Troponin, and serial changes to determine ifit is an Acute Myocardial Infarction or myocardial injury due to an underlying chronic condition. CBC AND DIFFERENTIAL Narrative: The following orders were created for panel order CBC & Differential. Procedure Abnormality Status --------- ------ CBC Auto Differential[[id number]] Abnormal Final result Please view results for these tests on the individual orders. GREEN TOP LAVENDER TOP GOLD TOP - SST FLORES TOP LIGHT BLUE TOP Meds Given in ED: Medications sodium chloride 0.9 % flush 10 mL (has no administration in time range) ipratropium-albuterol (DUO-NEB) nebulizer solution 3 mL (3 mL Nebulization Given 01/01/25 0958) methylPREDNISolone sodium succinate (SOLU-Medrol) injection 125 mg (125 mg Intravenous Given 01/01/25 0956) ipratropium-albuterol (DUO-NEB) nebulizer solution 3 mL (3 mL Nebulization Given 01/01/25 1044) iopamidol (ISOVUE-370) 76 % injection 100 mL (75 mL Intravenous Given 01/01/25 1102) Last NIH score: Dysphagia screening results: Patient Factors Component (Dysphagia:Stroke or Rule-out) Best Eye Response: 4-->(E4) spontaneous (01/01/25948) Best Motor Response: 6-->(M6) obeys commands (01/01/25948) Best Verbal Response: 5-->(V5) oriented (01/01/25948) [place] Coma Scale Score: 15 (01/01/25948) [place] Coma Scale: No data recorded CIWA: Restraint Type: Isolation Status: No active isolations documented in this encounter Miscellaneous Notes * [facility] Provider Note - Leslie Arciniega PA-C - 01/01/2025 9:35 AM EDT Associated Order(s): Critical Care Images from the original note were not included. Subjective History of Present Illness: Patient is a 59-year-old male who presents emergency department today with concerns of nasal congestion, nonproductive cough and some shortness of breath for the past week. Patient was evaluated bothat his primary care physician's office in addition to this emergency department. Patient was evaluated here on 12/30 and prescribed both steroids in addition to a Z-Jose. Patient states he has been taking the medications as prescribed. Patient states he has felt like he has not gotten better. Patientdenies any chills. Patient admits to a fever of 102 degrees Fahrenheit at home. Patient denies any chest pain, pressure or discomfort. Patient states he feels like he has phlegm stuck in the middle of his chest that he cannot cough up at this time. Patient states he has been having a mild productive cough. Patient denies any nausea or vomiting. Patient denies any fevers or chills. Patient denies any recent ill contacts. Patient admits to nasal congestion and rhinorrhea. Patient has a history ofCOPD. Patient smokes approximately a pack of cigarettes daily however over the past 3 days he has had less than half a pack. Patient has never needed supplemental oxygen. Patient is currently on warfarin for history of DVTs. Patient denies any history of heart attack or stroke. Patient is requesting potentially nebulizer for home if he is to be discharged as he does not have a machine. Nurses Notes reviewed and agree, including vitals, allergies, social history and prior medical history. REVIEW OF SYSTEMS: All systems reviewed and not pertinent unless noted. Review of Systems Constitutional: Positive for fatigue and fever. Negative for chills and diaphoresis. HENT: Positive for congestion and rhinorrhea. Negative for ear pain and sneezing. Respiratory: Positive for cough and wheezing. Negative for chest tightness. Cardiovascular: Negative for chest pain and palpitations. Gastrointestinal: Negative for abdominal pain, constipation, diarrhea, nausea and vomiting. Genitourinary: Negative for difficulty urinating, dysuria, enuresis, frequency and urgency. Neurological: Negative for dizziness, syncope, weakness, light-headedness, numbness and headaches. All other systems reviewed and are negative. Past Medical History: Diagnosis Date Anticoagulated on warfarin Arthritis COPD (chronic obstructive pulmonary disease) Decreased sexual interest DVT, recurrent, lower extremity, chronic Erectile dysfunction ? H/O blood clots Hypertension Nocturia Plantar fasciitis Allergies: Cefdinir and Penicillins Past Surgical History: Procedure Laterality Date CARDIAC CATHETERIZATION N/A 02/12/2020 Procedure: Left Heart Cath; Surgeon: Terry Bustillo MD; [facility]; Service: Cardiovascular; Laterality: N/A; [...] Problems Paternal Grandfather Objective Physical Exam: BP 117/67 Pulse 57 Temp 98.1 ??F (36.7 ??C) (Oral) Resp 12 Ht 175.3 cm (69 ) Wt 104 kg (230 lb) SpO2 95% BMI 33.97 kg/m?? Physical Exam Vitals and nursing note reviewed. Constitutional: Appearance: Normal appearance. He is well-developed and normal weight. HENT: Head: Normocephalic and atraumatic. Nose: Nose normal. Eyes: Pupils: Pupils are equal, round, and reactive to light. Neck: Comments: Patient has a lipoma noted to the posterior aspect of the right neck Cardiovascular: Rate and Rhythm: Normal rate and regular rhythm. Pulses: Normal pulses. Heart sounds: Normal heart sounds. Pulmonary: Effort: Pulmonary effort is normal. Breath sounds: Examination of the right-upper field reveals wheezing. Examination of the left-upperfield reveals wheezing. Examination of the left- middle field reveals wheezing. Examination of the right-lower field reveals wheezing. Examination of the left-lower field reveals wheezing. Decreased breath sounds and wheezing present. No rhonchi or rales. Chest: Chest wall: No tenderness. Abdominal: General: Abdomen is flat. Bowel sounds are normal. There is no distension. Palpations: Abdomen is soft. Tenderness: There is no abdominal tenderness. Musculoskeletal: General: Normal range of motion. Cervical back: Normal range of motion and neck supple. Right lower leg: No edema. Left lower leg: No edema. Skin: General: Skin is warm and dry. Capillary Refill: Capillary refill takes less than 2 seconds. Neurological: General: No focal deficit present. Mental Status: He is alert and oriented to person, place, and time. Mental status is at baseline. Psychiatric: Mood and Affect: Mood normal. Mood is not anxious. Behavior: Behavior normal. Behavior is not agitated. Thought Content: Thought content normal. Judgment: Judgment normal. Critical Care Performed by: Leslie Arciniega PA-C Authorized by: Vahid Joe DO Critical care provider statement: Critical care time (minutes): 30 Critical care start time: 01/01/2025 9:35 AM Critical care end time: 01/01/2025 10:05 AM Critical care time was exclusive of: Separately billable procedures and treating other patients Critical care was necessary to treat or prevent imminent or life-threatening deterioration of the following conditions: Respiratory failure Critical care was time spent personally by me on the following activities: Pulse oximetry, orderingand performing treatments and interventions, review of old charts, re-evaluation of patient's condition, ordering and review of radiographic studies, ordering and review of laboratory studies, examination of patient, evaluation of patient's response to treatment and obtaining history from patient or surrogate I assumed direction of critical care for this patient from another provider in my specialty: yes Care discussed with: admitting provider ED Course: ED Course as of 01/01/25 1407 Sadie Jan 01, 2025 1043 Parainfluenza Virus 3(!): Detected [MV] ED Course User Index [MV] Leslie Arciniega PA-C Lab Results (last 24 hours) Procedure Component Value Units Date/Time CBC & Differential [[id number]] (Abnormal) Collected: 01/01/25 0944 Specimen: Blood Updated: 01/01/2554 Narrative: The following orders were created for panel order CBC & Differential. Procedure Abnormality Status --------- ------ CBC Auto Differential[[id number]] Abnormal Final result Please view results for these tests on the individual orders. Comprehensive Metabolic Panel [[id number]] (Abnormal) Collected: 01/01/25943 Specimen: Blood Updated: 01/01/25 1016 Glucose 167 mg/dL BUN 19.5 mg/dL Creatinine 0.96 mg/dL Sodium 134 mmol/L Potassium 4.1 mmol/L Chloride 98 mmol/L CO2 24.8 mmol/L Calcium 9.3 mg/dL Total Protein 6.6 g/dL Albumin 3.8 g/dL ALT (SGPT) 15 U/L AST (SGOT) 28 U/L Alkaline Phosphatase 88 U/L Total Bilirubin 0.4 mg/dL Globulin 2.8 gm/dL A/G Ratio 1.4 g/dL BUN/Creatinine Ratio 20.3 Anion Gap 11.2 mmol/L eGFR 90.5 mL/min/1.73 Narrative: GFR Categories in Chronic Kidney [...] not include race as a factor BNP [[id number]] (Normal) Collected: 01/01/25943 Specimen: Blood Updated: 01/01/25 1013 proBNP 241.0 pg/mL Narrative: This assay is used as [...] 300-1800 Negative <300 High Sensitivity Troponin T [[id number]] (Normal) Collected: 01/01/25943 Specimen: Blood Updated: 01/01/25 1012 HS Troponin T <6 ng/L CBC Auto Differential [[id number]] (Abnormal) Collected: 01/01/25943 Specimen: Blood Updated: 01/01/25953 WBC 7.42 10*3/mm3 RBC 5.00 10*6/mm3 Hemoglobin 15.3 g/dL Hematocrit 44.2 % MCV 88.4 fL MCH 30.6 pg MCHC 34.6 g/dL RDW 12.7 % RDW-SD 41.3 fl MPV 9.3 fL Platelets 131 10*3/mm3 Neutrophil % 74.5 % Lymphocyte % 19.9 % Monocyte % 5.1 % Eosinophil % 0.3 % Basophil % 0.1 % Immature Grans % 0.1 % Neutrophils, Absolute 5.52 10*3/mm3 Lymphocytes, Absolute 1.48 10*3/mm3 Monocytes, Absolute 0.38 10*3/mm3 Eosinophils, Absolute 0.02 10*3/mm3 Basophils, Absolute 0.01 10*3/mm3 Immature Grans, Absolute 0.01 10*3/mm3 Protime-INR [[id number]] (Abnormal) Collected: 01/01/25943 Specimen: Blood Updated: 01/01/25 1008 Protime 22.6 Seconds INR 1.92 Respiratory Panel PCR w/COVID-19(SARS-CoV-2) SINA/JEZ/FLORA/PAD/COR/ROSALVA In-House, CONVEYOR MONITOR Swab in UTM/VTM, 2 HR TAT - Swab, Nasopharynx [[id number]] (Abnormal) Collected: 01/01/25 0948 Specimen: Swab from Nasopharynx Updated: 01/01/25 1042 ADENOVIRUS, PCR Not Detected Coronavirus 229E Not Detected Coronavirus HKU1 Not Detected Coronavirus NL63 Not Detected Coronavirus OC43 Not Detected COVID19 Not Detected Human Metapneumovirus Not Detected Human Rhinovirus/Enterovirus Not Detected Influenza A PCR Not Detected Influenza B PCR Not Detected Parainfluenza Virus 1 Not Detected Parainfluenza Virus 2 Not Detected Parainfluenza Virus 3 Detected Parainfluenza Virus 4 Not Detected RSV, PCR Not Detected Bordetella pertussis pcr Not Detected Bordetella parapertussis PCR Not Detected Chlamydophila pneumoniae PCR Not Detected Mycoplasma pneumo by PCR Not Detected Narrative: In the setting of a positive respiratory panel with a viral infection PLUS a negative procalcitoninwithout other underlying concern for bacterial infection, consider observing off antibiotics or discontinuation of antibiotics and continue supportive care. If the respiratory panel is positive for atypical bacterial infection (Bordetella pertussis, Chlamydophila pneumoniae, or Mycoplasma pneumoniae), consider antibiotic de-escalation to target atypical bacterial infection. High Sensitivity Troponin T 1Hr [[id number]] Collected: 01/01/251114 Specimen: Blood Updated: 01/01/25 1135 HS Troponin T <6 ng/L Troponin T Numeric Delta -- Comment: Unable to calculate. Narrative: High Sensitive Troponin T Reference Range: <14.0 ng/L- Negative Female for AMI <22.0 ng/L- Negative Male for AMI >=14 - Abnormal Female indicating possible myocardial injury. >=22 - Abnormal Male indicating possible myocardial injury. Clinicians would have to utilize clinical acumen, EKG, Troponin, and serial changes to determine ifit is an Acute Myocardial Infarction or myocardial injury due to an underlying chronic condition. Magnesium [[id number]] (Normal) Collected: 01/01/251114 Specimen: Blood Updated: 01/01/25 1314 Magnesium 2.1 mg/dL CT Angiogram Chest Pulmonary Embolism Result Date: 01/01/2025 CT ANGIOGRAM CHEST PULMONARY EMBOLISM Date of Exam: 01/01/2025 10:50 AM EDT Indication: Pulmonary Embolism. Comparison: Chest radiograph from earlier today and CT chest from November 18, 2024 Technique: Axial CT images were obtained of the chest after the uneventful intravenous administration of 75 mL Isovue-370 utilizing pulmonary embolism protocol. In addition, a 3-D volume rendered image was created for interpretation. Reconstructed coronal and sagittal images were also obtained. Automated exposure control and iterative construction methods were used. Findings: The central tracheobronchial tree is clear. The lungs are clear. There is no pleural effusion. The heart size appears normal. The great vessels are normal in caliber. There is no evidence of pulmonary embolus. No abnormally enlargedlymph nodes are identified. 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 No aggressive osseous lesions are identified. Impression: Impression: 1.Negative for pulmonary embolus. 2.No acute cardiopulmonary process. 3.Left adrenal myolipoma. Electronically Signed: Leo Feng MD 01/01/2025 11:23 AM EDT Workstation ID: [id number] XR Chest 1 View Result Date: 01/01/2025 XR CHEST 1 VW Date of Exam: 01/01/2025 9:40 AM EDT Indication: SOA triage protocol Comparison: 12/30/2024 Findings: The lungs appear adequately aerated without consolidation or mass. No pleural effusion or pneumothorax is identified. The cardiomediastinal silhouette and pulmonary vasculature appear wi thin normal limits. No acute or suspicious osseous lesion is identified. Impression: Impression: 1.No acute radiographic abnormality is identified. Electronically Signed: Andrey Munoz MD 01/01/2025 9:45 AM EDT Workstation ID: [id number] MDM Amount and/or Complexity of Data Reviewed Clinical lab tests: reviewed Tests in the radiology section of CPT??: reviewed Tests in the medicine section of CPT??: reviewed Initial impression of presenting illness: Cough and congestion, shortness of breath DDX: includes but is not limited to: COPD exacerbation versus pneumonia versus bronchitis versus viral syndrome Patient arrives vehicle with vitals interpreted by myself. Pertinent features from physical exam: Decreased lung sounds in diffuse wheezes throughout all lungfields. Initial diagnostic plan: CBC, CMP, troponin, BNP, INR, viral panel, chest x-ray Results from initial plan were reviewed and interpreted by me revealing patient has a positive for parainfluenza 3. Patient decompensated on his oxygen saturation to 87% on room air Diagnostic information from other sources: Previous medical records including recent ER visit from 12/30 in addition to recent PCP visit from the same day Interventions / Re-evaluation: Patient desaturated to oxygen saturation to 87% on room air therefore he was placed on supplemental oxygen. Patient had improvement of his wheezes and shortness of breath after 2 DuoNebs and IV steroid Medications acetaminophen (TYLENOL) tablet 650 mg (has no administration in time range) amLODIPine (NORVASC) tablet 10 mg (10 mg Oral Not Given 01/01/25 1351) atorvastatin (LIPITOR) tablet 20 mg (20 mg Oral Not Given 01/01/25 1352) busPIRone (BUSPAR) tablet 5 mg (5 mg Oral Not Given 01/01/25 135) carvedilol (COREG) tablet 25 mg (has no administration in time range) cetirizine (zyrTEC) tablet 10 mg (10 mg Oral Not Given 01/01/25 135) escitalopram (LEXAPRO) tablet 20 mg (20 mg Oral Not Given 01/01/25 135) ferrous sulfate tablet 325 mg (has no administration in time range) lisinopril (PRINIVIL,ZESTRIL) tablet 20 mg (20 mg Oral Not Given 01/01/251352) And hydroCHLOROthiazide tablet 12.5 mg (12.5 mg Oral Not Given 01/01/251352) pantoprazole (PROTONIX) EC tablet 40 mg (has no administration in time range) potassium chloride (KLOR-CON M20) CR tablet 20 mEq (20 mEq Oral Not Given 01/01/251352) Pharmacy to dose warfarin (has no administration in time range) sodium chloride 0.9 % flush 10 mL (has no administration in time range) sodium chloride 0.9 % flush 10 mL (10 mL Intravenous Given 01/01/25 135) sodium chloride 0.9 % flush 10 mL (has no administration in time range) sodium chloride 0.9 % infusion 40 mL (has no administration in time range) albuterol (PROVENTIL) nebulizer solution 0.083% 2.5 mg/3mL (has no administration in time range) methylPREDNISolone sodium succinate (SOLU-Medrol) injection 80 mg (80 mg Intravenous Given 01/01/25 1359) aspirin chewable tablet 81 mg (81 mg Oral Not Given 01/01/25 135) warfarin (COUMADIN) tablet 10 mg (has no administration in time range) warfarin (COUMADIN) tablet 5 mg (has no administration in time range) ipratropium-albuterol (DUO-NEB) nebulizer solution 3 mL (3 mL Nebulization Given 01/01/25 0956) methylPREDNISolone sodium succinate (SOLU-Medrol) injection 125 mg (125 mg Intravenous Given 01/01/25 0956) ipratropium-albuterol (DUO-NEB) nebulizer solution 3 mL (3 mL Nebulization Given 01/01/25 1044) iopamidol (ISOVUE-370) 76 % injection 100 mL (75 mL Intravenous Given 01/01/25 1102) Results/clinical rationale were discussed with patient Consultations/Discussion of results with other physicians: I spoke with Kelsey Voss PA-C in theCDU who agreed to accept the patient for continued medical observation and management Data interpreted: Nursing notes reviewed, vital signs reviewed. Labs independently interpreted by me (CBC, CMP, BNP, troponin, RVP, INR). Imaging independently interpreted by me (x-ray, CT scan). EKGindependently interpreted by me. O2 saturation: 95% on 2 L of supplemental oxygen Counseling: Discussed the results above with the patient regarding need for admission or discharge.Patient understands and agrees plan of care. Patient is a 59-year-old male who presented to the emergency department today with complaints of shortness of breath. Patient states he has been taking his azithromycin in addition to his medicine asprescribed and has been feeling increased shortness of breath and dyspnea on exertion. Patient was diagnosed with an upper respiratory infection and a COPD and exacerbation 2 days ago. Patient was evaluated at his primary care physician's office who sent him here to the emergency department. Patient was then discharged home as he was feeling better. Patient was feeling worse last night. Patient tested positive for parainfluenza type III today. Patient CT PE protocol showed no evidence of pulmonary embolism. Patient CBC and CMP were nonactionable at this time. Patient's INR is 1.92 with a goalof 2-3. Patient's BNP and troponins were within normal limits. Patient's EKG showed no ST elevations. Patient's oxygen saturation decreased to 87% on room air. Patient was placed on supplemental oxygen at 3 L. Patient received 2 DuoNebs, IV Solu-Medrol. I discussed admitting the patient and given his acute hypoxic respiratory failure in addition to COPD exacerbation caused by parainfluenza type III. Patient agreed to be admitted to the observation unit for continued monitoring. Patient was accepted to the CDU via Kelsey Voss PA-C. ----- ED Disposition ED Disposition Decision to Admit Condition -- Comment -- Final diagnoses: Acute hypoxic respiratory failure Infection due to parainfluenza virus 3 COPD exacerbation Your Follow-Up Providers Follow-up information has not been specified. Contact information for after-discharge care Follow-up information has not been specified. Your medication list CONTINUE taking these medications Instructions Last Dose Given Next Dose Due Hypodermic Needle 23G X 1 misc Use 1 Device As Needed (Injection of Testosterone). Needle (Disp) 18G X 1-1/2 misc Use for drawing up the medication ASK your doctor about these medications Instructions Last Dose Given Next [...] 250 MG tablet Commonly known as: ZITHROMAX Ask about: Which instructions should I use? Take 1 tablet by mouth Daily. TAKE 2 TABLETS BY MOUTH ON DAY 1, AND THEN TAKE 1 TABLET BY MOUTH ONCE A DAY ON DAY 2 THROUGH DAY 5 buprenorphine-naloxone 8-2 MG per SL tablet Commonly [...] for Anxiety for up to 20 doses. lactulose 10 GM/15ML solution Commonly known as: CHRONULAC Take 30 mL by mouth 2 (Two) Times a Day As Needed (constipation). lisinopril-hydrochlorothiazide 20-12.5 MG per tablet Commonly known as: PRINZIDE,ZESTORETIC Take 2 tablets by mouth once daily omeprazole 40 MG capsule Commonly known as: [...] TAKE ON DIFFERENT DAYS THAN 5 MG Cosigned by Vahid Joe DO at 01/01/2025 5:06 PM EDT Associated attestation - Vahid Joe DO - 01/01/2025 5:06 PM EDT SHARED APC FACE TO FACE: I performed a substantive part of the MDM during the patient's E/M visit. I personally evaluated and examined the patient. I personally made or approved the documented management plan and acknowledge its risk of complications. Vahid Joe DO 01/01/2025 17:06 EDT documented in this encounter Plan of Treatment Upcoming Encounters Date Type Department Care Team (Late st Contact Info) Description 03/12/2025 8:30 AM EDT Office Visit [facility] [address] [place] [address] Rae Truong, CORE STICKER [address] [place] [address] 04/29/2025 9:30 AM EDT Office Visit [facility] [address] [phone] Fauzia Sterling MD [address] [address] Scheduled Referrals Name Type Priority Associated Diagnoses Orde r Schedule Ambulatory Referral to Pulmonology Outpatient Referral Routine Acute hypoxic respiratory failure COPD with exacerbation Ordered: 01/02/2025 documented as of this encounter Goals Goal Patient Goal Type Associated Problems Recent Progress Patient-Stated? Author Track and Manage My Blood Pressure Patient Goals On track(2024 10:45 AM EST) Claudia Ward, RN Note: - choose a place to [...] Care Plan Resistant Hypertension (Hypertension) No Claudia Reno RN Note: Evidence-based guidance: Assess patient response [...] Procedure Name Priority Date/Time Associated Diagnosis Comments CBC WITH AUTO DIFFERENTIAL Urgent 01/02/2025 5:50 AM EDT PROTIME-INR Urgent 01/02/2025 5:50 AM EDT COMPREHENSIVE METABOLIC PANEL Urgent 01/02/2025 5:50 AM EDT HIGH SENSITIVITIY TROPONIN T 1HR STAT 01/01/2025 11:15 AM EDT MAGNESIUM STAT 01/01/2025 11:15 AM EDT ECG 12-LEAD STAT 01/01/2025 11:[address] ANGIOGRAM CHEST PULMONARY EMBOLISM STAT 01/01/2025 11:05 AM EDT RESPIRATORY PANEL PCR W/ COVID-19 (SARS-COV-2), CONVEYOR MONITOR SWAB IN UTM/VTP, 2 HR TAT STAT 01/01/2025 9:48 AM EDT FLORES TOP STAT 01/01/2025 9:44 AM EDT GOLD TOP - SST STAT 01/01/2025 9:44 AM EDT DK GREEN TOP STAT 01/01/2025 9:44 AM EDT CBC WITH AUTO DIFFERENTIAL STAT 01/01/2025 9:44 AM EDT LAVENDER TOP STAT 01/01/2025 9:44 AM EDT LIGHT BLUE TOP STAT 01/01/2025 9:44 AM EDT RAINBOW DRAW STAT 01/01/2025 9:44 AM EDT TROPONIN STAT 01/01/2025 9:44 AM EDT PROTIME-INR STAT 01/01/2025 9:44 AM EDT CBC AND DIFFERENTIAL STAT 01/01/2025 9:44 AM EDT B-TYPE NATRIURETIC PEPTIDE STAT 01/01/2025 9:44 AM EDT COMPREHENSIVE METABOLIC PANEL STAT 01/01/2025 9:44 AM EDT XR CHEST 1 VW STAT 01/01/2025 9:40 AM EDT [place] [facility] ILL/INJURED PATIENT ADDL 30 MIN Routine 01/01/2025 9:35 AM EDT ECG 12-LEAD STAT 01/01/2025 9:31 AM EDT documented in this encounter Results * (ABNORMAL) Protime-INR (01/02/2025 5:50 AM EDT) Protime 25.5(H) 12.2 - 14.5 Seconds 01/02/2025 6:16 AM EDT [facility] INR 2.24(H) 0.89 - 1.12 01/02/2025 6:16 AM EDT [facility] Blood Venipuncture / Unknown 01/02/2025 5:50 AM EDT 01/02/2025 6:03 AM EDT us Kelsey MARIE-Evelyne LAB BLOOD ORDERABLES Final Result [facility]
[address] [place] [address], [place] * (ABNORMAL) CBC Auto Differential (01/02/2025 5:50 AM EDT) WBC 12.81(H) 3.40 - 10.80 10*3/mm3 01/02/2025 6:08 AM [facility] RBC 4.81 4.14 - 5.80 10*6/mm3 01/02/2025 6:08 AM [facility] Hemoglobin 14.7 13.0 - 17.7 g/dL 01/02/2025 6:08 AM [facility] Hematocrit 41.8 37.5 - 51.0 % 01/02/2025 6:08 AM [facility] MCV 86.9 79.0 - 97.0 fL 01/02/2025 6:08 AM [facility] MCH 30.6 26.6 - 33.0 pg 01/02/2025 6:08 AM [facility] MCHC 35.2 31.5 - 35.7 g/dL 01/02/2025 6:08 AM [facility] RDW 12.4 12.3 - 15.4 % 01/02/2025 6:08 AM [facility] RDW-SD 40.3 37.0 - 54.0 fl 01/02/2025 6:08 AM [facility] MPV 9.3 6.0 - 12.0 fL 01/02/2025 6:08 AM [facility] Platelets 154 140 - 450 10*3/mm3 01/02/2025 6:08 AM [facility] Neutrophil % 86.9(H) 42.7 - 76.0 % 01/02/2025 6:08 AM [facility] Lymphocyte % 9.8(L) 19.6 - 45.3 % 01/02/2025 6:08 AM [facility] Monocyte % 3.0(L) 5.0 - 12.0 % 01/02/2025 6:08 AM [facility] Eosinophil % 0.1(L) 0.3 - 6.2 % 01/02/2025 6:08 AM [facility] Basophil % 0.0 0.0 - 1.5 % 01/02/2025 6:08 AM EDT [facility] Immature Grans % 0.2 0.0 - 0.5 % 01/02/2025 6:08 AM EDT [facility] Neutrophils, Absolute 11.13(H) 1.70 - 7.00 10*3/mm3 01/02/2025 6:08 AM EDT [facility] Lymphocytes, Absolute 1.26 0.70 - 3.10 10*3/mm3 01/02/2025 6:08 AM EDT [facility] Monocytes, Absolute 0.38 0.10 - 0.90 10*3/mm3 01/02/2025 6:08 AM EDT [facility] Eosinophils, Absolute 0.01 0.00 - 0.40 10*3/mm3 01/02/2025 6:08 AM EDT [facility] Basophils, Absolute 0.00 0.00 - 0.20 10*3/mm3 01/02/2025 6:08 AM EDT [facility] Immature Grans, Absolute 0.03 0.00 - 0.05 10*3/mm3 01/02/2025 6:08 AM EDT [facility] Blood Venipuncture / Unknown 01/02/2025 5:50 AM EDT 01/02/2025 6:03 AM EDT us Kelsey E Voss PA-C LAB BLOOD ORDERABLES Final Result [facility]
[address] [place] [address], * (ABNORMAL) Comprehensive Metabolic Panel (01/02/2025 5:50 AM EDT) Glucose 130(H) 65 - 99 mg/dL 01/02/2025 6:22 AM EDT [facility] BUN 25.1(H) 8.0 - 23.0 mg/dL 01/02/2025 6:22 AM EDT [facility] Creatinine 0.87 0.76 - 1.27 mg/dL 01/02/2025 6:22 AM [facility] Sodium 138 136 - 145 mmol/L 01/02/2025 6:22 AM [facility] Potassium 4.5 3.5 - 5.2 mmol/L 01/02/2025 6:22 AM [facility] Chloride 102 98 - 107 mmol/L 01/02/2025 6:22 AM [facility] CO2 26.3 22.0 - 29.0 mmol/L 01/02/2025 6:22 AM [facility] Calcium 9.5 8.6 - 10.5 mg/dL 01/02/2025 6:22 AM [facility] Total Protein 6.4 6.0 - 8.5 g/dL 01/02/2025 6:22 AM [facility] Albumin 3.8 3.5 - 5.2 g/dL 01/02/2025 6:22 AM [facility] ALT (SGPT) 15 1 - 41 U/L 01/02/2025 6:22 AM [facility] AST (SGOT) 21 1 - 40 U/L 01/02/2025 6:22 AM [facility] Alkaline Phosphatase 99 39 - 117 U/L 01/02/2025 6:22 AM [facility] Total Bilirubin 0.3 0.0 - 1.2 mg/dL 01/02/2025 6:22 AM [facility] Globulin 2.6 gm/dL 01/02/2025 6:22 AM [facility] A/G Ratio 1.5 g/dL 01/02/2025 6:22 AM [facility] BUN/Creatinine Ratio 28.9(H) 7.0 - 25.0 01/02/2025 6:22 AM [facility] Anion Gap 9.7 5.0 - 15.0 mmol/L 01/02/2025 6:22 AM [facility] eGFR 98.8 >60.0 mL/min/1.7 3 01/02/2025 6:22 AM [facility] Blood Venipuncture / Unknown 01/02/2025 5:50 AM EDT 01/02/2025 6:03 AM EDT Narrative [facility] - 01/02/2025 6:22 AM EDT GFR Categories in Chronic Kidney Disease (CKD) [...] does not include race as a factor us Cole E Voss PA-C LAB BLOOD ORDERABLES Final Result [facility]
[address] [place] [address], [place] * Magnesium (01/01/2025 11:15 AM EDT) Pathologist [facility] Magnesium 2.1 1.6 - 2.4 mg/dL 01/01/2025 1:14 PM EDT [facility] Blood Line / Unknown 01/01/2025 11 :15 AM EDT 01/01/2025 11:17 AM EDT us Kelsey Bonner Voss PA-C LAB BLOOD ORDERABLES Final Result [facility]
[address] [place] [address], [place] * High Sensitivity Troponin T 1Hr (01/01/2025 11:15 AM EDT) HS Troponin T <6 <22 ng/L 01/01/2025 11:35 AM EDT [facility] Troponin T Numeric Delta 01/01/2025 11:35 AM EDT [facility] Comment:Unable to calculate. Blood Line / Unknown 01/01/2025 11 :15 AM EDT 01/01/2025 11:17 AM EDT Narrative [facility] - 01/01/2025 11:35 AM EDT High Sensitive Troponin T Reference Range: <14.0 ng/L- Negative Female for AMI <22.0 ng/L- Negative Male for AMI >=14 - Abnormal Female indicating possible myocardial injury. >=22 - Abnormal Male indicating possible myocardial injury. Clinicians would have to utilize clinical acumen, EKG, Troponin, and serial changes to determine if it is an Acute Myocardial Infarction or myocardial injury due to an underlying chronic condition. us Vahid Joe DO LAB BLOOD ORDERABLES Final Result [facility]
[address] [place] [address], * ECG 12 Lead Dyspnea (01/01/2025 11:13 AM EDT) QT Interval 446 ms ECG QTC Interval 430 ms ECG 01/01/2025 11:1 3 AM EDT 01/02/2025 6:53 PM EDT Narrative ECG - 01/02/2025 6:53 PM EDT Test Reason : Dyspnea Blood Pressure : */* mmHG Vent. Rate : 56 BPM Atrial Rate : 56 BPM P-R Int : 168 ms QRS Dur : 84 ms QT Int : 446 ms P-R-T Axes : -12 23 28 degrees QTcB Int : 430 ms Sinus bradycardia Otherwise normal ECG When compared with ECG of 01-Jan-2025 09:31, (Unconfirmed) No significant change was found Confirmed by Vahid Joe ([id number]) on 01/02/2025 6:53:48 PM Referred By: Confirmed By: Vahid Joe Procedure Note Vahid Joe, - 01/02/2025 Test Reason : Dyspnea Blood Pressure : */* mmHG Vent. Rate : 56 BPM Atrial Rate : 56 BPM P-R Int : 168 ms QRS Dur : 84 ms QT Int : 446 ms P-R-T Axes : -12 23 28 degrees QTcB Int : 430 ms Sinus bradycardia Otherwise normal ECG When compared with ECG of 01-Jan-2025 09:31, (Unconfirmed) No significant change was found Confirmed by Vahid Joe ([id number]) on 01/02/2025 6:53:48 PM Referred By: Confirmed By: Vahid Joe us Vahid Joe DO ECG ORDERABLES Final Resul t ECG * CT Angiogram Chest Pulmonary Embolism (01/01/2025 11:05 AM EDT) Anatomical Region Laterality Modality Chest N/A Computed Tomogra phy 01/01/2025 11:1 5 AM EDT Impressions 01/01/2025 11:23 AM EDT Impression: 1.Negative for pulmonary embolus. 2.No acute cardiopulmonary process. 3.Left adrenal myolipoma. Electronically Signed: Leo Feng MD 01/01/2025 11:23 AM EDT Workstation ID: [id number] Narrative 01/01/2025 11:[address] ANGIOGRAM CHEST PULMONARY EMBOLISM Date of Exam: 01/01/2025 10:50 AM EDT Indication: Pulmonary Embolism. Comparison: Chest radiograph from earlier today and CT chest from November 18, 2024 Technique: Axial CT images were obtained of the chest after the uneventful intravenous administration of 75 mL Isovue-370 utilizing pulmonary embolism protocol. In addition, a 3-D volume rendered image was created for interpretation. Reconstructed coronal and sagittal images were also obtained. Automated exposure control and iterative construction methods were used. Findings: The central tracheobronchial tree is clear. The lungs are clear. There is no pleural effusion. The heart size appears normal. The great vessels are normal in caliber. There is no evidence of pulmonary embolus. No abnormally enlarged lymph nodes are identified. 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 No aggressive osseous lesions are identified. Procedure Note Leo Feng MD - 01/01/2025 CT ANGIOGRAM CHEST PULMONARY EMBOLISM Date of Exam: 01/01/2025 10:50 AM EDT Indication: Pulmonary Embolism. Comparison: Chest radiograph from earlier today and CT chest from 2024 Technique: Axial CT images were obtained of the chest after the uneventfulintravenous administration of 75 mL Isovue-370 utilizing pulmonaryembolism protocol. In addition, a 3-D volume rendered image was createdfor interpretation. Reconstructed coronal and sagittal images were also obtained. Automated exposure controland iterative construction methods were used. Findings: The central tracheobronchial tree is clear. The lungs are clear. There isno pleural effusion. The heart size appears normal. The great vessels are normal in caliber.There is no evidence of pulmonary embolus. No abnormally enlarged lymphnodes are identified. Partial evaluation of the upper abdomen demonstrates a 1.6 cm left adrenalmyolipoma and a partially atrophic right kidney. No aggressive osseous lesions are identified. IMPRESSION: Impression: 1.Negative for pulmonary embolus. 2.No acute cardiopulmonary process. 3.Left adrenal myolipoma. Electronically Signed: Leo Feng MD 01/01/2025 11:23 AM EDT Workstation ID: [id number] Leslie Arciniega PA-C [facility] [place]LES Final Result * (ABNORMAL) Respiratory Panel PCR w/COVID-19(SARS-CoV-2) SINA/JEZ/FLORA/PAD/COR/ROSALVA In-House, CONVEYOR MONITOR Swab in UTM/VTM, 2 HR TAT - Swab, Nasopharynx (01/01/2025 9:48 AM EDT) ADENOVIRUS, PCR Not Detected Not Detected [facility] [employer] [facility] 01/01/2025 10:42 AM EDT [facility] Coronavirus 229E Not Detected Not Detected [facility] [employer] [facility] 01/01/2025 10:42 AM EDT [facility] Coronavirus HKU1 Not Detected Not Detected BIORiskonnectE [employer] [facility] 01/01/2025 10:42 AM EDT [facility] Coronavirus NL63 Not Detected Not Detected [facility] [employer] [facility] [employer] 01/01/2025 10:42 AM EDT [facility] Coronavirus OC43 Not Detected Not Detected BIOFIRE [facility] 01/01/2025 10:42 AM [facility] COVID19 Not Detected Not Detected - Ref. Range [facility]RE [facility] 01/01/2025 10:42 AM [facility] Human Metapneumovirus Not Detected Not Detected [facility] 01/01/2025 10:42 AM [facility] Human Rhinovirus/Enterov irus Not Detected Not Detected [facility] 01/01/2025 10:42 AM [facility] Influenza A PCR Not Detected Not Detected [facility] [employer] 01/01/2025 10:42 AM [facility] Influenza B PCR Not Detected Not Detected [facility] [employer] 01/01/2025 10:42 AM [facility] Parainfluenza Virus 1 Not Detected Not Detected [facility] 01/01/2025 10:42 AM [facility] Parainfluenza Virus 2 Not Detected Not Detected [facility] 01/01/2025 10:42 AM [facility] Parainfluenza Virus 3 Detected(A) Not Detected [facility] 01/01/2025 10:42 AM [facility] Parainfluenza Virus 4 Not Detected Not Detected [facility] 01/01/2025 10:42 AM [facility] RSV, PCR Not Detected Not Detected [facility] [employer] 01/01/2025 10:42 AM [facility] Bordetella pertussis pcr Not Detected Not Detected [facility] 01/01/2025 10:42 AM [facility] Bordetella parapertussis PCR Not Detected Not Detected [facility] 01/01/2025 10:42 AM [facility] Chlamydophila pneumoniae PCR Not Detected Not Detected [facility] 01/01/2025 10:42 AM [facility] Mycoplasma pneumo by PCR Not Detected Not Detected [facility] 01/01/2025 10:42 AM [facility] Swab Nasopharyngeal structure / Unknown Collection / Unknown 01/01/2025 9:48 AM EDT 01/01/2025 9:52 AM EDT Narrative [facility] - 01/01/2025 10:42 AM EDT In the setting of a positive respiratory panel with a viral infection PLUS a negative procalcitonin without other underlying concern for bacterial infection, consider observing off antibiotics or discontinuation of antibiotics and continue supportive care. If the respiratory panel is positive for atypical bacterial infection (Bordetella pertussis, Chlamydophila pneumoniae, or Mycoplasma pneumoniae), consider antibiotic de-escalation to target atypical bacterial infection. Leslie Arciniega PA-C MICROBIOLOGY - GENERAL O RDERABLES Final Result [facility]
[address] [place] [address], * (ABNORMAL) Protime-INR (01/01/2025 9:44 AM EDT) Protime 22.6(H) 12.2 - 14.5 Seconds 01/01/2025 10:08 AM EDT [facility] INR 1.92(H) 0.89 - 1.12 01/01/2025 10:08 AM EDT [facility] Blood Line / Unknown 01/01/2025 9: 44 AM EDT 01/01/2025 9:52 AM EDT Leslie Arciniega PA-C LAB BLOOD ORDERABLES Fin al Result [facility]
[address] [place] [address], [place] * (ABNORMAL) CBC Auto Differential (01/01/2025 9:44 AM EDT) WBC 7.42 3.40 - 10.80 10*3/mm3 01/01/2025 9:54 AM EDT [facility] RBC 5.00 4.14 - 5.80 10*6/mm3 01/01/2025 9:54 AM EDT [facility] Hemoglobin 15.3 13.0 - 17.7 g/dL 01/01/2025 9:54 AM [facility] Hematocrit 44.2 37.5 - 51.0 % 01/01/2025 9:54 AM [facility] MCV 88.4 79.0 - 97.0 fL 01/01/2025 9:54 AM [facility] MCH 30.6 26.6 - 33.0 pg 01/01/2025 9:54 AM [facility] MCHC 34.6 31.5 - 35.7 g/dL 01/01/2025 9:54 AM [facility] RDW 12.7 12.3 - 15.4 % 01/01/2025 9:54 AM [facility] RDW-SD 41.3 37.0 - 54.0 fl 01/01/2025 9:54 AM [facility] MPV 9.3 6.0 - 12.0 fL 01/01/2025 9:54 AM [facility] Platelets 131(L) 140 - 450 10*3/mm3 01/01/2025 9:54 AM [facility] Neutrophil % 74.5 42.7 - 76.0 % 01/01/2025 9:54 AM [facility] Lymphocyte % 19.9 19.6 - 45.3 % 01/01/2025 9:54 AM [facility] Monocyte % 5.1 5.0 - 12.0 % 01/01/2025 9:54 AM [facility] Eosinophil % 0.3 0.3 - 6.2 % 01/01/2025 9:54 AM [facility] Basophil % 0.1 0.0 - 1.5 % 01/01/2025 9:54 AM [facility] Immature Grans % 0.1 0.0 - 0.5 % 01/01/2025 9:54 AM [facility] Neutrophils, Absolute 5.52 1.70 - 7.00 10*3/mm3 01/01/2025 9:54 AM [facility] Lymphocytes, Absolute 1.48 0.70 - 3.10 10*3/mm3 01/01/2025 9:54 AM EDT [facility] Monocytes, Absolute 0.38 0.10 - 0.90 10*3/mm3 01/01/2025 9:54 AM EDT [facility] Eosinophils, Absolute 0.02 0.00 - 0.40 10*3/mm3 01/01/2025 9:54 AM EDT [facility] Basophils, Absolute 0.01 0.00 - 0.20 10*3/mm3 01/01/2025 9:54 AM EDT [facility] Immature Grans, Absolute 0.01 0.00 - 0.05 10*3/mm3 01/01/2025 9:54 AM EDT [facility] Blood Line / Unknown 01/01/2025 9: 44 AM EDT 01/01/2025 9:52 AM EDT Vahid Joe DO LAB BLOOD ORDERABLES Final Result [facility]
[address] [facility] [address] [place] [address], [place] * Light Blue Top (01/01/2025 9:44 AM EDT) Extra Tube Hold for add-ons. 01/01/2025 10:00 AM EDT [facility] Comment:Auto resulted Blood Line / Unknown 01/01/2025 9: 44 AM EDT 01/01/2025 9:52 AM EDT Vahid Joe DO LAB BLOOD ORDER ONLY Final Result [facility]
[address] [place] [address], [place] * Flores Top (01/01/2025 9:44 AM EDT) Extra Tube Hold for add-ons. 01/01/2025 10:00 AM EDT [facility] Comment:Auto resulted. Blood Line / Unknown 01/01/2025 9: 44 AM EDT 01/01/2025 9:52 AM EDT Vahid Butterfieldasiya HYLTON LAB BLOOD ORDER ONLY Final Result [facility]
[address] [facility] [address] [place] [address], [place] * Gold Top - SST (01/01/2025 9:44 AM EDT) Extra Tube Hold for add-ons. 01/01/2025 10:00 AM EDT [facility] Comment:Auto resulted. Blood Line / Unknown 01/01/2025 9: 44 AM EDT 01/01/2025 9:51 AM EDT Vahid Joe DO LAB BLOOD ORDER ONLY Final Result Performing Organization Address City/[facility]/ZIP Co de Phone Number [facility]
[address] [place] [address], [place] * Lavender Top (01/01/2025 9:44 AM EDT) Extra Tube hold for add-on 01/01/2025 10:00 AM EDT [facility] Comment:Auto resulted Blood Line / Unknown 01/01/2025 9: 44 AM EDT 01/01/2025 9:52 AM EDT Vahid Eula Tatyana HYLTON LAB BLOOD ORDER ONLY Final Result [facility]
[address] [facility] [address] [place] [address], [place] * Green Top (Gel) (01/01/2025 9:44 AM EDT) Extra Tube Hold for add-ons. 01/01/2025 10:00 AM EDT [facility] Comment:Auto resulted. Blood Line / Unknown 01/01/2025 9: 44 AM EDT 01/01/2025 9:52 AM EDT Vahid Joe DO LAB BLOOD ORDER ONLY Final Result [facility]
[address] [facility] [address] [place] [address], [place] * High Sensitivity Troponin T (01/01/2025 9:44 AM EDT) HS Troponin T <6 <22 ng/L 01/01/2025 10:12 AM EDT [facility] Blood Line / Unknown 01/01/2025 9: 44 AM EDT 01/01/2025 9:52 AM EDT Vahid Joe DO LAB BLOOD ORDERABLES Final Result Performing Organization Address City/[facility]/ZIP Co de Phone Number [facility]
[address] [facility] [address] [place] [address], [place] * BNP (01/01/2025 9:44 AM EDT) proBNP 241.0 0.0 - 900.0 pg/mL 01/01/2025 10:13 AM EDT [facility] Blood Line / Unknown 01/01/2025 9: 44 AM EDT 01/01/2025 9:52 AM EDT Narrative [facility] - 01/01/2025 10:13 AM EDT This assay is used as [...] Positive >1800 Flores 300-1800 Negative <300 us Vahid Joe DO LAB BLOOD ORDERABLES Final Result [facility]
[address] [place] [address], [place] * (ABNORMAL) Comprehensive Metabolic Panel (01/01/2025 9:44 AM EDT) Glucose 167(H) 65 - 99 mg/dL 01/01/2025 10:16 AM EDT [facility] [place] [facility] BUN 19.5 8.0 - 23.0 mg/dL 01/01/2025 10:16 AM T [facility] Creatinine 0.96 0.76 - 1.27 mg/dL 01/01/2025 10:16 AM [facility] Sodium 134(L) 136 - 145 mmol/L 01/01/2025 10:16 AM [facility] [place] [facility] Potassium 4.1 3.5 - 5.2 mmol/L 01/01/2025 10:16 AM T [facility] Chloride 98 98 - 107 mmol/L 01/01/2025 10:16 AM [facility] [place] [facility] CO2 24.8 22.0 - 29.0 mmol/L 01/01/2025 10:16 AM [facility] Calcium 9.3 8.6 - 10.5 mg/dL 01/01/2025 10:16 AM [facility] Total Protein 6.6 6.0 - 8.5 g/dL 01/01/2025 10:16 AM [facility] Albumin 3.8 3.5 - 5.2 g/dL 01/01/2025 10:16 AM T [facility] [place] [facility] ALT (SGPT) 15 1 - 41 U/L 01/01/2025 10:16 AM [facility] AST (SGOT) 28 1 - 40 U/L 01/01/2025 10:16 AM [facility] Alkaline Phosphatase 88 39 - 117 U/L 01/01/2025 10:16 AM [facility] Total Bilirubin 0.4 0.0 - 1.2 mg/dL 01/01/2025 10:16 AM EDT [facility] Globulin 2.8 gm/dL 01/01/2025 10:16 AM EDT [facility] A/G Ratio 1.4 g/dL 01/01/2025 10:16 AM EDT [facility] BUN/Creatinine Ratio 20.3 7.0 - 25.0 01/01/2025 10:16 AM EDT [facility] Anion Gap 11.2 5.0 - 15.0 mmol/L 01/01/2025 10:16 AM EDT [facility] eGFR 90.5 >60.0 mL/min/1.7 3 01/01/2025 10:16 AM EDT [facility] Blood Line / Unknown 01/01/2025 9: 44 AM EDT 01/01/2025 9:52 AM EDT [facility] - 01/01/2025 10:16 AM EDT GFR Categories in Chronic Kidney Disease (CKD) [...] does not include race as a factor us Vahid Joe DO LAB BLOOD ORDERABLES Final Result [facility]
[address] [place] [address], * XR Chest 1 View (01/01/2025 9:40 AM EDT) Anatomical Region Laterality Modality Body N/A Radiographic Leslie ging 01/01/2025 9:44 AM EDT Impressions 01/01/2025 9:45 AM EDT Impression: 1.No acute radiographic abnormality is identified. Electronically Signed: Andrey Munoz MD 01/01/2025 9:45 AM EDT Workstation ID: [id number] Narrative 01/01/2025 9:45 AM EDT XR CHEST 1 VW Date of Exam: 01/01/2025 9:40 AM EDT Indication: SOA triage protocol Comparison: 12/30/2024 Findings: The lungs appear adequately aerated without consolidation or mass. No pleural effusion or pneumothorax is identified. The cardiomediastinal silhouette and pulmonary vasculature appear within normal limits. No acute or suspicious osseous lesion is identified. Procedure Note Andrey Munoz MD - 01/01/2025 XR CHEST 1 VW Date of Exam: 01/01/2025 9:40 AM EDT Indication: SOA triage protocol Comparison: 12/30/2024 Findings: The lungs appear adequately aerated without consolidation or mass. Nopleural effusion or pneumothorax is identified. The cardiomediastinalsilhouette and pulmonary vasculature appear within normal limits. No acuteor suspicious osseous lesion is identified. IMPRESSION: Impression: 1.No acute radiographic abnormality is identified. Electronically Signed: Andrey Munoz MD 01/01/2025 9:45 AM EDT Workstation ID: [id number] Vahid Joe DO IM DIAGNOSTIC IM[facility]ING [facility] Final Result * [place] CRITICAL CARE ILL/INJURED PATIENT ADDL 30 MIN (01/01/2025 9:35 AM EDT) Narrative Vahid Joe DO - 01/01/2025 9:35 AM EDT Vahid Joe DO 01/01/2025 5:06 PM Critical Care Performed by: Leslie Arciniega PA-C Authorized by: Vahid Joe DO Critical care provider statement: Critical care time (minutes): 30 Critical care start time: 01/01/2025 9:35 AM Critical care end time: 01/01/2025 10:05 AM Critical care time was exclusive of: Separately billable procedures and treating other patients Critical care was necessary to treat or prevent imminent or life-threatening deterioration of the following conditions: Respiratory failure Critical care was time spent personally by me on the following activities: Pulse oximetry, ordering and performing treatments and interventions, review of old charts, re-evaluation of patient's condition, ordering and review of radiographic studies, ordering and review of laboratory studies, examination of patient, evaluation of patient's response to treatment and obtaining history from patient or surrogate I assumed direction of critical care for this patient from another provider in my specialty: yes Care discussed with: admitting provider Vahid Joe DO PROCEDURE/MINOR SURGICAL OR DERABLES Final Result * ECG 12 Lead Dyspnea (01/01/2025 9:31 AM EDT) Pathologist [facility] QT Interval 428 ms ECG QTC Interval 423 ms ECG 01/01/2025 9:31 AM EDT 01/02/2025 6:53 PM EDT Narrative ECG - 01/02/2025 6:53 PM EDT Test Reason : Dyspnea Blood Pressure : */* mmHG Vent. Rate : 59 BPM Atrial Rate : 59 BPM P-R Int : 202 ms QRS Dur : 76 ms QT Int : 428 ms P-R-T Axes : 53 13 17 degrees QTcB Int : 423 ms Sinus bradycardia Low voltage QRS Borderline ECG When compared with ECG of 30-Dec-2024 09:50, No significant change was found Confirmed by Vahid Joe ([id number]) on 01/02/2025 6:53:33 PM Referred By: Confirmed By: Vahid Joe Procedure Note Vahid Joe, DO - 01/02/2025 Test Reason : Dyspnea Blood Pressure : */* mmHG Vent. Rate : 59 BPM Atrial Rate : 59 BPM P-R Int : 202 ms QRS Dur : 76 ms QT Int : 428 ms P-R-T Axes : 53 13 17 degrees QTcB Int : 423 ms Sinus bradycardia Low voltage QRS Borderline ECG When compared with ECG of 30-Dec-2024 09:50, No significant change was found Confirmed by Vahid Joe ([id number]) on 01/02/2025 6:53:33 PM Referred By: Confirmed By: Vahid Joe Vahid Joe DO ECG ORDERABLES Final Resul t ECG documented in this encounter Visit Diagnoses Diagnosis Acute hypoxic respiratory failure Infection due to parainfluenza virus 3 Other specified viral infection, in conditions classified elsewhere and of unspecified site COPD exacerbation Obstructive chronic bronchitis with exacerbation COPD with acute exacerbation COPD with exacerbation COPD with acute exacerbation documented in this encounter Admitting Diagnoses Diagnosis COPD with acute exacerbation documented in this encounter Administered Medications Inactive Administered Medications - up to 3 most recent administrations Medication Order MAR Action Action Date Dose Rate Site amLODIPine (NORVASC) tablet 10 mg 10 mg, Oral, Daily, First dose on Sun01/01/25 at 1400, Hold for SBP less than 100, DBP less than 60. Caution: Look alike/sound alike drug alert. Avoid grapefruit juice. Given 01/02/2025 8:59 AM EDT 10 mg atorvastatin (LIPITOR) tablet 20 mg 20 mg, Oral, Daily, First dose on Sun01/01/25 at 1400, Avoid grapefruit juice. Given 01/02/2025 8:58 AM EDT 20 mg azithromycin (ZITHROMAX) tablet 250 mg 250 mg, Oral, Once, On Sun01/02/25 at 1300, For 1 dose, Do not administer concurrently with aluminum or magnesium antacids. Take with food if GI upset occurs., Indications: Upper Respiratory Tract InfectionIndications:Upper Respiratory Tract Infection Given 01/02/2025 1:09 PM EDT 250 mg busPIRone (BUSPAR) tablet 5 mg 5 mg, Oral, 2 Times Daily, First dose on Sun01/01/25 at 1400, Caution: Look alike/sound alike drug alert. Take with food. Avoid grapefruit juice. Given 01/02/2025 8:58 AM EDT 5 mg Given 01/01/2025 8:51 PM EDT 5 mg carvedilol (COREG) tablet 25 mg 25 mg, Oral, 2 Times Daily With Meals, First dose on Sun01/01/25 at 1800, Hold for SBP less than 100, DBP less than 60, or heart rate less than 50. If a dose is held, please contact the provider. Give with food. Given 01/02/2025 8:57 AM EDT 25 mg Given 01/01/2025 6:42 PM EDT 25 mg cetirizine (zyrTEC) tablet 10 mg 10 mg, Oral, Daily, First dose on Sadie 01/01/25 at 1400 Given 01/02/2025 8:58 AM EDT 10 mg escitalopram (LEXAPRO) tablet 20 mg 20 mg, Oral, Daily, First dose on Sadie 01/01/25 at 1400, Caution: Look alike/sound alike drug alert. Given 01/02/2025 8:59 AM EDT 20 mg hydroCHLOROthiazide tablet 12.5 mg 12.5 mg, Oral, Every 24 Hours Scheduled, First dose on Sadie 01/01/25 at 1400, Caution: Look alike/sound alike drug alert Given 01/02/2025 8:58 AM EDT 12.5 mg iopamidol (ISOVUE-370) 76 % injection 100 mL 100 mL, Intravenous, Once in Imaging, On [facility] 01/01/25 at 1130, For 1 dose Given 01/01/2025 11:02 AM EDT 75 mL ipratropium-albuterol (DUO-NEB) nebulizer solution 3 mL 3 mL, Nebulization, Once, On [facility] 01/01/25 at 1015, For 1 dose, Include Respiratory Treatment Education Given 01/01/2025 9:58 AM EDT 3 mL ipratropium-albuterol (DUO-NEB) nebulizer solution 3 mL 3 mL, Nebulization, Once, On [facility] 01/01/25 at 1100, For 1 dose, Include Respiratory Treatment Education Given 01/01/2025 10:44 AM EDT 3 mL ipratropium-albuterol (DUO-NEB) nebulizer solution 3 mL 3 mL, Nebulization, Every 4 Hours - RT, First dose on [facility] 01/01/25 at 2215, Include Respiratory Treatment Education Given 01/02/2025 11:07 AM EDT 3 mL Given 01/02/2025 7:12 AM EDT 3 mL Given 01/02/2025 3:51 AM EDT 3 mL lisinopril (PRINIVIL,ZESTRIL) tablet 20 mg 20 mg, Oral, Every 24 Hours Scheduled, First dose on [facility] 01/01/25 at 1400 Given 01/02/2025 9:01 AM EDT 20 mg methylPREDNISolone sodium succinate (SOLU-Medrol) injection 125 mg 125 mg, Intravenous, Once, On Sun01/01/25 at 1015, For 1 dose, Caution: Look alike/sound alike drug alert Given 01/01/2025 9:56 AM EDT 125 mg methylPREDNISolone sodium succinate (SOLU-Medrol) injection 80 mg 80 mg, Intravenous, Every 8 Hours, First dose on Sun01/01/25 at 1400, Caution: Look alike/sound alike drug alert Given 01/02/2025 1:09 PM EDT 80 mg Given 01/02/2025 5:48 AM EDT 80 mg Given 01/01/2025 9:28 PM EDT 80 mg pantoprazole (PROTONIX) EC tablet 40 mg 40 mg, Oral, Every Ball Machine Operator, First dose on Sun01/02/25 at 0600, Swallow whole; do not crush, split, or chew. Given 01/02/2025 5:48 AM EDT 40 mg potassium chloride (KLOR-CON M20) CR tablet 20 mEq 20 mEq, Oral, Daily, First dose on Sun01/01/25 at 1400, Do not crush or chew the capsules or tablets. The drug may not work as designed if the capsule or tablet is crushed or chewed. Swallow whole. Take with food. Given 01/02/2025 8:58 AM EDT 20 mEq sodium chloride 0.9 % flush 10 mL 10 mL, Intravenous, Every 12 Hours Scheduled, First dose on Sun01/01/25 at 1400 Given 01/02/2025 8:59 AM EDT 10 mL Given 01/01/2025 1:54 PM EDT 10 mL sterile water (preservative free) injection Starting on Sun01/02/25 at 1306, For 1 dose, Created by cabinet override Given 01/02/2025 1:09 PM EDT 10 mL warfarin (COUMADIN) tablet 10 mg 10 mg, Oral, User Specified (Once per day on Sunday), First dose on Sun01/02/25 at 1800, Food-Drug Interaction. Empty wrappers can be disposed of in the trash. Group 2 ([place]) Hazardous Drug - Reproductive Risk Only - See Handling Guide, Target INR: 2 - 3, Indications: DVT/PE (active thrombosis)Indications:DVT/PE (active thrombosis) warfarin (COUMADIN) tablet 5 mg 5 mg, Oral, User Specified (Once per day on Sunday), First dose on Sadie 01/01/25 at 1800, Food-Drug Interaction. Empty wrappers can be disposed of in the trash. Group 2 ([place]) Hazardous Drug - Reproductive Risk Only - See Handling Guide, Target INR: 2 - 3, Indications: DVT/PE (active thrombosis)Indications:DVT/PE (active thrombosis) documented in this encounter Active and Recently Administered Medications Times are shown in EDT. Scheduled Medication Order 12/31/2024 01/01/2025 01/02/2025 amLODIPine (NORVASC) tablet 10 mg 10 mg, Oral, Daily, First dose on Sadie 01/01/25 at 1400, Hold for SBP less than 100, DBP less than 60. Caution: Look alike/sound alike drug alert. Avoid grapefruit juice. 1351 (Not Given - Provider: Yesi Pereira RN - Reason: Other - Comment: pt took this AM) 0859 (Given - Provider: Kate Antonio RN) aspirin chewable tablet 81 mg 81 mg, Oral, Once, On Sadie 01/01/25 at 1415, For 1 dose, Herbal/drug interaction: Avoid use with ginkgo biloba. Based on patient request - if ordered for moderate or severe pain, provider allows for administration of a medication prescribed for a lower pain scale. Do not exceed 4 grams of aspirin in a 24 hr period. If given for pain, use the following pain scale: Mild Pain = Pain Score of 1-3, CPOT 1-2 Moderate Pain = Pain Score of 4-6, CPOT 3-4 Severe Pain = Pain Score of 7-10, CPOT 5-8 1352 (Not Given - Provider: Yesi Pereira RN - Reason: Other - Comment: pt took this AM) atorvastatin (LIPITOR) tablet 20 mg 20 mg, Oral, Daily, First dose on Sadie 01/01/25 at 1400, Avoid grapefruit juice. 1352 (Not Given - Provider: Yesi Pereira RN - Reason: Other - Comment: pt took this AM) 0858 (Given - Provider: Kate Antonio RN) azithromycin (ZITHROMAX) tablet 250 mg (COMPLETED) 250 mg, Oral, Once, On Sun01/02/25 at 1300, For 1 dose, Do not administer concurrently with aluminum or magnesium antacids. Take with food if GI upset occurs., Indications: Upper Respiratory Tract Infection 1309 (Given - Provid er: Kate Antonio RN) busPIRone (BUSPAR) tablet 5 mg 5 mg, Oral, 2 Times Daily, First dose on Sun01/01/25 at 1400, Caution: Look alike/sound alike drug alert. Take with food. Avoid grapefruit juice. 1352 (Not Given - Provider: Yesi Pereira RN - Reason: Other - Comment: pt took this AM)2050 (Given - Provider: Lakia Rivero RN) 0858 (Given - Provider: Kate Antonio RN) carvedilol (COREG) tablet 25 mg 25 mg, Oral, 2 Times Daily With Meals, First dose on Sun01/01/25 at 1800, Hold for SBP less than 100, DBP less than 60, or heart rate less than 50. If a dose is held, please contact the provider. Give with food. 184 (Given - Provider: Yesi Pereira RN) 0857 (Given - Provider: Kate Antonio RN) cetirizine (zyrTEC) tablet 10 mg 10 mg, Oral, Daily, First dose on Sun01/01/25 at 1400 1352 (Not Given - Provider: Yesi Pereira RN - Reason: Other - Comment: pt took this AM) 0858 (Given - Provider: Kate Antonio, RN) escitalopram (LEXAPRO) tablet 20 mg 20 mg, Oral, Daily, First dose on Sun01/01/25 at 1400, Caution: Look alike/sound alike drug alert. 1352 (Not Given - Provider: Yesi Pereira RN - Reason: Other - Comment: pt took this AM) 0859 (Given - Provider: Kaet Antonio, RN) ferrous sulfate tablet 325 mg 325 mg, Oral, Daily With Breakfast, First dose on Sun01/01/25 at 1400, Swallow whole. Do not crush, split, or chew. Take with food if GI upset occurs., On hold since Sun01/01/2025 at 1837 until manually unheld 1836 (Held by provider - Provider: Marcio Carrera, PharmD - Reason: Other (Comment Required) - Comment: Unavailable)1900 (Dose Auto Held - Provider: Marcio Carrera, AlliD) 0800 (Dose Auto Held - Provider: Marcio Carrera, AlliD)1544 (Unheld by provider - Provider: Automatic Discharge Provider) hydroCHLOROthiazide tablet 12.5 mg(Linked Group 1) 12.5 mg, Oral, Every 24 Hours Scheduled, First dose on Sadie 01/01/25 at 1400, Caution: Look alike/sound alike drug alert 1353 (Not Given - Provider: Yesi Pereira RN - Reason: Other - Comment: pt took this AM) 0858 (Given - Provider: Kate Antonio RN) iopamidol (ISOVUE-370) 76 % injection 100 mL (COMPLETED) 100 mL, Intravenous, Once in Imaging, On Sadie 01/01/25 at 1130, For 1 dose 1102 (Given - Provider: Dav Mcclelland) ipratropium-albuterol (DUO-NEB) nebulizer solution 3 mL (COMPLETED) 3 mL, Nebulization, Once, On Sadie 01/01/25 at 1015, For 1 dose, Include Respiratory Treatment Education 0958 (Given - Provider: Veronica Farrell, YUE) ipratropium-albuterol (DUO-NEB) nebulizer solution 3 mL (COMPLETED) 3 mL, Nebulization, Once, On Sadie 01/01/25 at 1100, For 1 dose, Include Respiratory Treatment Education 1044 (Given - Provider: Veronica Farrell RRT) ipratropium-albuterol (DUO-NEB) nebulizer solution 3 mL 3 mL, Nebulization, Every 4 Hours - RT, First dose on Sadie 01/01/25 at 2215, Include Respiratory Treatment Education 2226 (Given - Provider: Og Boland RRT) 0351 (Given - Provider: Og Boland RRT)0712 (Given - Provider: Linda Stallings RRT)1107 (Given - Provider: Linda Stallings RRT) lisinopril (PRINIVIL,ZESTRIL) tablet 20 mg(Linked Group 1) 20 mg, Oral, Every 24 Hours Scheduled, First dose on Sadie 01/01/25 at 1400 1353 (Not Given - Provider: Yesi Pereira RN - Reason: Other - Comment: pt took this AM) 0901 (Given - Provider: Kate Antonio RN) methylPREDNISolone sodium succinate (SOLU-Medrol) injection 125 mg (COMPLETED) 125 mg, Intravenous, Once, On Sun01/01/25 at 1015, For 1 dose, Caution: Look alike/sound alike drug alert 0956 (Given - Provider: Felicitas Caceres RN) methylPREDNISolone sodium succinate (SOLU-Medrol) injection 80 mg 80 mg, Intravenous, Every 8 Hours, First dose on Sun01/01/25 at 1400, Caution: Look alike/sound alike drug alert 1359 (Given - Provider: Yesi Pereira RN)2128 (Given - Provider: Lakia Rivero RN) 0548 (Given - Provider: Lakia Rivero RN)1309 (Given - Provider: Kate Antonio RN) pantoprazole (PROTONIX) EC tablet 40 mg 40 mg, Oral, Every Ball Machine Operator, First dose on Sun01/02/25 at 0600, Swallow whole; do not crush, split, or chew. 0548 (Given - Provid er: Lakia Rivero RN) potassium chloride (KLOR-CON M20) CR tablet 20 mEq 20 mEq, Oral, Daily, First dose on Sun01/01/25 at 1400, Do not crush or chew the capsules or tablets. The drug may not work as designed if the capsule or tablet is crushed or chewed. Swallow whole. Take with food. 1353 (Not Given - Provider: Yesi Pereira RN - Reason: Other - Comment: pt took this AM) 0858 (Given - Provider: Kate Antonio RN) sodium chloride 0.9 % flush 10 mL 10 mL, Intravenous, Every 12 Hours Scheduled, First dose on Sun01/01/25 at 1400 1354 (Given - Provider: Yesi Pereira RN) 0745 (Canceled Entry - Provider: Kate Antonio RN)0859 (Given - Provider: Kate Antonio RN) warfarin (COUMADIN) tablet 10 mg 10 mg, Oral, User Specified (Once per day on Sunday), First dose on Sun01/02/25 at 1800, Food-Drug Interaction. Empty wrappers can be disposed of in the trash. Group 2 ([place]) Hazardous Drug - Reproductive Risk Only - See Handling Guide, Target INR: 2 - 3, Indications: DVT/PE (active thrombosis) warfarin (COUMADIN) tablet 5 mg 5 mg, Oral, User Specified (Once per day on Sunday), First dose on Sadie 01/01/25 at 1800, Food-Drug Interaction. Empty wrappers can be disposed of in the trash. Group 2 ([place]) Hazardous Drug - Reproductive Risk Only - See Handling Guide, Target INR: 2 - 3, Indications: DVT/PE (active thrombosis) 1841 (Not Given - Provider: Yesi Pereira RN - Reason: Other - Comment: pt took this AM) PRN Medication Order 12/31/2024 01/01/2025 01/02/2025 acetaminophen (TYLENOL) tablet 650 mg 650 mg, Oral, Daily PRN, Mild Pain, Starting on Sadie 01/01/25 at 1240, If given for fever, use fever parameter: fever greater than 100.4 F Based on patient request - if ordered for moderate or severe pain, provider allows for administration of a medication prescribed for a lower pain scale. Do not exceed 4 grams of acetaminophen in a 24 hr period. Max dose of 2gm for AST/ALT greater than 120 units/L. If given for pain, use the following pain scale: Mild Pain = Pain Score of 1-3, CPOT 1-2 Moderate Pain = Pain Score of 4-6, CPOT 3-4 Severe Pain = Pain Score of 7-10, CPOT 5-8 albuterol (PROVENTIL) nebulizer solution 0.083% 2.5 mg/3mL 2.5 mg, Nebulization, Every 6 Hours PRN, Shortness of Air, Starting on Sadie 01/01/25 at 1251, Include Respiratory Treatment Education Pharmacy to dose warfarin Continuous PRN, Starting on Sadie 01/01/25 at 1242, Until Sun01/02/25 at 1544, Consult, Target INR: 2 - 3, Indications: history of DVT/PE sodium chloride 0.9 % flush 10 mL 10 mL, Intravenous, As Needed, Line Care, Starting on Sadie 01/01/25 at 1247 sodium chloride 0.9 % flush 10 mL 10 mL, Intravenous, As Needed, Line Care, Starting on Sadie 25 at 1247 sodium chloride 0.9 % infusion 40 mL 40 mL, Intravenous, at 100 mL/hr, As Needed, Line Care, Starting on Sun01/01/25 at 1247, Following administration of an IV intermittent medication, flush line with 40mL NS at 100mL/hr. No Frequency Medication Order 12/31/2024 01/01/2025 01/02/2025 sterile water (preservative free) injection (COMPLETED) Starting on Sun01/02/25 at 1306, For 1 dose, Created by cabinet override 1309 (Given - Provid er: Kate Antonio RN) Linked Groups Order Group 1: lisinopril (PRINIVIL,ZESTRIL) tablet 20 mgJump to med 20 mg, Oral, Every 24 Hours Scheduled, First dose on Sun01/01/25 at 1400 And hydroCHLOROthiazide tablet 12.5 mgJump to med 12.5 mg, Oral, Every 24 Hours Scheduled, First dose on Sun01/01/25 at 1400, Caution: Look alike/sound alike drug alert documented in this encounter Additional Health Concerns Active Problems Noted Date Diagnosed Date Hypertension (Hypertension) 05/08/2024 Disease Progression (Hypertension) 05/08/2024 Resistant Hypertension (Hypertension) 05/08/2024 Infection Onset Date Last Indicated Resolved Time Other Comment:Parainfluenza 3 per RVP 01.01.2025 01/02/2025 01/02/2025 documented as of this encounter Care Teams Box Closing Machine Operator Relationship Specialty Start Date End Date Fauzia Sterling MD [address] [place] [address] PCP - General Family Medicine 09/03/18 documented as of this encounter
--- OUTSIDE RECORDS SUMMARY | 2025-01-05 10:00 | XMS_ITS | Encounter Summary ---
[facility] Address [address] [place] [address] Care Team Providers Care Instrument Operator Name Role Phone Fauzia Sterling MD Primary Care Provider [phone] Reason for Referral * Consultation (Routine) - Closed Specialty Diagnoses / Procedures Referred By Contac t Referred To Contact Pulmonary Disease / Pulmonology Diagnoses Hospital discharge follow-up COPD with acute exacerbation Tobacco abuse Parainfluenza infection Requires supplemental oxygen Procedures AK OFFICE/OUTPATIENT NEW MODERATE MDM 45 MINUTES Fauzia Sterling MD [address] [address] Phone: tel: fax: [facility] [address] [place] [address] Phone: tel: fax: Referral ID Status Reason Start Date Expiration Date Visits Re quested Visits Authorized [id number] Closed 01/05/2025 04/06/2026 1 1 Reason for Visit * Reason Comments Hospital Follow Up Visit Encounter Details Date Type Department Care Team (Late st Contact Info) Description 01/05/2025 10:00 AM EDT Office Visit [facility] [address] [phone] Fauzia Sterling MD [address] [address] Hospital discharge follow-up (Primary Dx); Hypogonadism in male; Chronic deep vein thrombosis (DVT) of proximal vein of lower extremity, unspecified laterality; Anticoagulant long-term use; Essential hypertension; COPD with acute exacerbation; Tobacco abuse; Parainfluenza infection; Requires supplemental oxygen Social History Tobacco Use Types Packs/Day Years Used Date Smoking Tobacco: Every Day Cigarettes 1 35 Passive Smoke Exposure: Current Smokeless Tobacco: Never Comments:Smoking 1-1 1/2 pac k a day Alcohol Use Standard Drinks/Week Comments No 0 (1 standard drink = 0.6 oz pur e alcohol) [facility] Utilities Answer Date Recorded In the past 12 months has e [employer], gas, oil, or water [employer] threatened to shut off services in your [...] any time in the past 12 m [facility], were you homeless or living in a custodial (including now)? No 11/18/2024 Abuse Screen Answer [...] Sign Reading Time Taken Comments Blood Pressure 120/72 01/05/2025 9:24 AM EDT Pulse 70 01/05/2025 9:24 AM EDT Temperature 36.4 C (97.5 F) 01/05/2025 9:24 AM EDT Respiratory Rate 21 01/05/2025 9:24 AM EDT Oxygen Saturation 97% 01/05/2025 9:24 AM EDT Inhaled Oxygen Concentration - - Weight 107 kg (234 lb 12.8 oz) 01/05/2025 9:24 A M EDT Height - - Body Mass Index 34.67 01/01/2025 9:31 AM EDT documented in this encounter Progress Notes * Fauzia Sterling MD - 01/05/2025 10:00 AM EDT * Fauzia Sterling MD - 01/05/2025 10:00 AM EDT Transitional Care Follow Up Visit Subjective Jesus Perales is a 59 y.o. male who presents for a transitional care management visit. Within 48 business hours after discharge our office contacted him via telephone to coordinate his care and needs. I reviewed and discussed the details of that call along with the discharge summary, hospital problems, inpatient lab results, inpatient diagnostic studies, and consultation reports with Jesus. Current outpatient and discharge medications have been reconciled for the patient. Reviewed by: Fauzia Sterling MD 01/02/2025 4:47 PM Date of TCM Phone Call [facility] Date of Admission 01/01/2025 Date of Discharge 01/02/2025 Discharge Disposition Home or Self Care Risk for Readmission (LACE) Score: 4 (01/02/2025 6:00 AM) History of Present Illness Course During [facility] having fevers at [facility] and difficulty breathing. He had already been tried on Z-Jose and oral steroids. He has a history of DVTs and is on warfarin he has a history of COPDAnd continues to be a 1 pack-a-day smoker. He was admitted to the clinical decision unit overnight as he was requiring [facility] 90 or above.He was responsive to DuoNeb treatments steroid and azithromycin. He was discharged with follow-up to pulmonology. While in the ER he had a CT scan of his chest that did not show pneumonia. I have reviewed his labsfrom that emergency department visit. Tested positive Parainfluenza 3 He was started on ipratropium albuterol DuoNebs He still has NC 3 L. Sputum more. He is feeling much better. Still scratchy throat. The following portions of the patient's history were reviewed and updated as appropriate: allergies, current medications, past family history, past medical history, past social history, past surgicalhistory, and problem list. Review of Systems Constitutional: Negative for chills, fatigue, fever and unexpected weight change. HENT: Negative for congestion, ear pain, nosebleeds, rhinorrhea, sinus pressure, sneezing, sore throat and trouble swallowing. Eyes: Negative for itching and visual disturbance. Respiratory: Positive for cough, shortness of breath and wheezing. Negative for chest tightness. Cardiovascular: Negative for chest pain, palpitations and leg swelling. Gastrointestinal: Negative for abdominal pain, anal bleeding, blood in stool, constipation, diarrhea, nausea and vomiting. Endocrine: Negative for cold intolerance, heat intolerance, polydipsia and polyuria. Genitourinary: Negative for difficulty urinating, frequency, hematuria and urgency. Musculoskeletal: Negative for back pain, gait problem and myalgias. Skin: Negative for rash and wound. Neurological: Negative for dizziness, weakness, numbness and headaches. Hematological: Negative for adenopathy. Does not bruise/bleed easily. Psychiatric/Behavioral: Negative for agitation, confusion, decreased concentration and suicidal ideas. The patient is not nervous/anxious. Objective BP 120/72 (BP Location: Left arm, Patient Position: Sitting, Cuff Size: Adult) Pulse 70 Temp 97.5 ??F (36.4 ??C) (Infrared) Resp 21 Wt 107 kg (234 lb 12.8 oz) SpO2 97% BMI 34.67 kg/m?? Physical Exam Vitals and nursing note reviewed. Constitutional: Appearance: He is well-developed. HENT: Head: Normocephalic and atraumatic. Eyes: General: No scleral icterus. Right eye: No discharge. Left eye: No discharge. Conjunctiva/sclera: Conjunctivae normal. Pupils: Pupils are equal, round, and reactive to light. Neck: Thyroid: No thyromegaly. Vascular: No JVD. Trachea: No tracheal deviation. Cardiovascular: Rate and Rhythm: Normal rate and regular rhythm. Heart sounds: Normal heart sounds. No murmur heard. No friction rub. No gallop. Pulmonary: Effort: Pulmonary effort is normal. No respiratory distress. Breath sounds: Normal breath sounds. No wheezing or rales. Chest: Chest wall: No tenderness. Abdominal: General: Bowel sounds are normal. There is no distension. Palpations: Abdomen is soft. There is no mass. Tenderness: There is no abdominal tenderness. Musculoskeletal: General: Normal range of motion. Cervical back: Normal range of motion and neck supple. Skin: General: Skin is warm and dry. Neurological: Mental Status: He is alert and oriented to person, place, and time. Cranial Nerves: No cranial nerve deficit. Coordination: Coordination normal. Deep Tendon Reflexes: Reflexes are normal and symmetric. Reflexes normal. Psychiatric: Behavior: Behavior normal. Thought Content: Thought content normal. Judgment: Judgment normal. Assessment & Plan Diagnoses and all orders for this visit: 1. Hospital discharge follow-up (Primary) - XR Chest PA & Lateral (In Office) 2. Hypogonadism in male 3. Chronic deep vein thrombosis (DVT) of proximal vein of lower extremity, unspecified laterality 4. Anticoagulant long-term use 5. Essential hypertension 6. COPD with acute exacerbation - XR Chest PA & Lateral (In Office) 7. Tobacco abuse 8. Parainfluenza infection 9. Requires supplemental oxygen documented in this encounter Plan of Treatment Upcoming Encounters Date Type Department Care Team (Late st Contact Info) Description 03/12/2025 8:30 AM EDT Office Visit [facility] [address] [place] [address] Rae Truong, LEGAL RECOVERY SPECIALIST [address] [place] [address] 04/29/2025 9:30 AM EDT Office Visit [facility] [address] [phone] Fauzia Sterling MD [address] [address] Scheduled Referrals Name Type Priority Associated Diagnoses Orde r Schedule Ambulatory Referral to Pulmonology Outpatient Referral Routine Hospital discharge follow-up COPD with acute exacerbation Tobacco abuse Parainfluenza infection Requires supplemental oxygen Ordered: 01/05/2025 documented as of this encounter Goals Goal Patient Goal Type Associated Problems Recent Progress Patient-Stated? Author Track and Manage My Blood Pressure Patient Goals On track(2024 10:45 AM EST) No Claudia Reno RN Note: - choose a place to [...] Plan Disease Progression (Hypertension) No Claudia Reno, JAYCEE Note: Evidence-based guidance: Tailor lifestyle advice to [...] Care Plan Resistant Hypertension (Hypertension) No Claudia Rneo RN Note: Evidence-based guidance: Assess patient response [...] Priority Date/Time Associated Diagnosis Comments XR CHEST PA AND LATERAL Routine 01/05/2025 10:27 AM EDT Hospital discharge follow-up COPD with acute exacerbation documented in this encounter Results * XR Chest PA & Lateral (In Office) (01/05/2025 10:27 AM EDT) Anatomical Region Laterality Modality Body, Chest N/A Radiographic Leslie ging 01/06/2025 12:3 7 PM EDT Impressions 01/06/2025 12:38 PM EDT Impression: No acute cardiopulmonary disease. Electronically Signed: Hudson Vernon MD 01/06/2025 12:38 PM EDT Workstation ID: [id number] Narrative 01/06/2025 12:38 PM EDT XR CHEST PA AND LATERAL Date of Exam: 01/05/2025 10:24 AM EDT Indication: cxr, COPD exac with new oxygen requirement. Comparison: None available. Findings: The lungs are clear bilaterally. Pleural spaces are normal. Cardiac and mediastinal contours are within normal limits. Regional skeleton is within normal limits for age. Procedure Note Hudson Vernon MD - 01/06/2025 XR CHEST PA AND LATERAL Date of Exam: 01/05/2025 10:24 AM EDT Indication: cxr, COPD exac with new oxygen requirement. Comparison: None available. Findings: The lungs are clear bilaterally. Pleural spaces are normal. Cardiac andmediastinal contours are within normal limits. Regional skeleton is withinnormal limits for age. IMPRESSION: Impression: No acute cardiopulmonary disease. Electronically Signed: Hudson Vernon MD 01/06/2025 12:38 PM EDT Workstation ID: [id number] Fauzia Sterling MD [facility] DI[facility]NOST[facility] ORDERA BLES Final Result documented in this encounter Visit Diagnoses Diagnosis Hospital discharge follow-up- Primary Other follow-up examination Hypogonadism in male Chronic deep vein thrombosis (DVT) of proximal vein of lower extremity, unspecified laterality Anticoagulant long-term use Encounter for long-term (current) use of anticoagulants Essential hypertension Unspecified essential hypertension COPD with acute exacerbation Tobacco abuse Tobacco use disorder Parainfluenza infection Other specified diseases due to viruses Requires supplemental oxygen documented in this encounter Additional Health Concerns Active Problems Noted Date Diagnosed Date Hypertension (Hypertension) 05/08/2024 Disease Progression (Hypertension) 05/08/2024 Resistant Hypertension (Hypertension) 05/08/2024 Infection Onset Date Last Indicated Resolved Time Other Comment:Parainfluenza 3 per RVP 01.01.2025 01/02/2025 01/02/2025 documented as of this encounter Care Teams Instrument Operator Relationship Specialty Start Date End Date Fauzia Sterling MD [address] [place] [address] PCP - General Family Medicine 09/03/18 documented as of this encounter
--- OUTSIDE RECORDS SUMMARY | 2025-01-05 10:30 | XMS_ITS | Encounter Summary ---
Author Organization [facility] Address [address] [place] [address] Care Team Providers Care Metal Coater Operator Name Role Phone Fauzia Sterling MD Primary Care Provider [phone] Encounter Details Date Type Department Care Team (Late st Contact Info) Description 01/05/2025 10:30 AM EDT Ancillary Procedure [facility] [address] [facility] [address] [place] [phone] Social History Tobacco Use Types Packs/Day Years Used Date Smoking Tobacco: Every Day Cigarettes 1 35 Passive Smoke Exposure: Current Smokeless Tobacco: Never Comments:Smoking 1-1 1/2 pac k a day Alcohol Use Standard Drinks/Week Comments No 0 (1 standard drink = 0.6 oz pur e alcohol) [facility] Utilities Answer Date Recorded In the past 12 months has [employer], gas, oil, or water [employer] threatened to shut off services in your [...] any time in the past 12 m [facility], were you homeless or living in a nursing home (including now)? No 11/18/2024 Abuse Screen [...] Description 03/12/2025 8:30 AM EDT Office Visit [facility] [address] [place] [address] Rae Truong, AIRLINE LOUNGE RECEPTIONIST [address] [place] [address] 04/29/2025 9:30 AM EDT Office Visit [facility] [address] [facility] [address] [place] [phone] Fauzia Sterling MD [address] [facility] [address] [place] [address] documented as of this encounter Goals Goal [...] or Minimized Care Plan Disease Progression (Hypertension) Claudia Ward RN Note: Evidence-based guidance: Tailor lifestyle advice [...] MD 01/06/2025 12:38 PM EDT Workstation ID: [id number] Narrative 01/06/2025 12:38 PM EDT XR CHEST [...] MD 01/06/2025 12:38 PM EDT Workstation ID: [id number] Fauzia Sterling MD IMG DIAGNOSTIC IMAGING ORDERA [...] documented as of this encounter Care Teams Metal Coater Operator Relationship Specialty Start Date End Date Fauzia Sterling MD [address] [address] PCP - General Family Medicine 09/03/18 documented as of this encounter
--- OUTSIDE RECORDS SUMMARY | 2025-01-09 09:30 | XMS_ITS | Encounter Summary ---
Author Organization [facility] Address [address] [place] [address] Care Team Providers Care Salesperson Wigs Name Role Phone Fauzia Sterling MD Primary Care Provider [phone] Reason for Visit * Reason Comments oxygen Was recently put on O2 and has questions Encounter Details Date Type Department Care Team (Late st Contact Info) Description 01/09/2025 9:30 AM EDT Office Visit [facility] [address] [place] [phone] Akbar Espinal DO [address] [place] [phone] Chronic obstructive pulmonary disease, unspecified COPD type (Primary Dx); Parainfluenza infection; Requires supplemental oxygen Social History Tobacco Use Types Packs/Day Years Used Date Smoking Tobacco: Every Day Cigarettes 1 35 Passive Smoke Exposure: Current Smokeless Tobacco: Never Tobacco Cessation:Ready to Q uit: No; Counseling Given: Yes Comments:Smoking 1-1 1/2 pack a day Alcohol Use Standard Drinks/Week Comments No 0 (1 standard drink = 0.6 oz pur e alcohol) [facility] Utilities Answer Date Recorded In the past 12 months has [employer], gas, oil, or water [employer] threatened to shut off services in your [...] time in the past [address] [facility], were you homeless or living in a penitentiary (including now)? No 11/18/2024 Abuse Screen Answer Date Recorded Feels Unsafe at Home or Work/School no 01/11/2025 Feels Threatened by Someone no 12/22 Does Anyone Try to Keep You From Having Contact with Others or Doing Things Outside Your Home? no 01/11/2025 Physical Signs of Abuse Present no 01/11/2025 Housing Stability Answer Date Recorded Current Living [...] Sign Reading Time Taken Comments Blood Pressure 132/60 01/09/2025 9:15 AM EDT Pulse 68 01/09/2025 9:15 AM EDT Temperature 36.8 C (98.2 F) 01/09/2025 9:15 AM EDT Respiratory Rate - - Oxygen Saturation 93% 01/09/2025 9:15 AM EDT Inhaled Oxygen Concentration - - Weight 105 kg (232 lb) 01/09/2025 9:15 AM EDT Height 175.3 cm (5' 9.02 ) 01/09/2025 9:15 AM ED T Body Mass Index 34.24 01/09/2025 9:15 AM EDT documented in this encounter Progress Notes * Akbar Espinal, - 01/09/2025 9:30 AM EDT Images from the original note were not included. Follow Up Office Visit Date: 01/09/2025 Patient Name: Jesus Perales : 1965 Chief Complaint: Chief Complaint Patient presents with oxygen Was recently put on O2 and has questions History of Present Illness: Jesus Perales is a 59 y.o. male who presents today with concerns after being placed on oxygen. Reports bout 10-[address] Rodriguez for PCP. Patient was seen on 01/02/[address] Sterling for hospital discharge follow-up. Was in the hospital from 01/01/2025 - 01/02/2025 for COPD with acute exacerbation. On discharge was to start taking DuoNeb (ipratropium-albuterol) nebulizer, Was to continue other medications. Has history of DVT and takes warfarin. Previously noted history of COPD and continues to be a 1 pack-a-day smoker. Was requiring 3 L of oxygen nasal cannula to maintain oxygen saturation of 90 or above. Was responsive to DuoNeb treatments steroid and azithromycin Patient was discharged with follow-up to pulmonology. O2 sating at 87 on room air in office. Tested positive for parainfluenza 3. Subjective Review of Systems: Review of Systems Constitutional: Negative for chills and fever. Respiratory: Positive for shortness of breath. Gastrointestinal: Negative for nausea and vomiting. Neurological: Negative for seizures and syncope. I have reviewed the patients family history, social history, past medical history, past surgical history and have updated it as appropriate. Medications: Current Outpatient Medications: acetaminophen (TYLENOL) 325 [...] WITH MEALS, Disp: 60 tablet, Rfl: 0 cetirizine (zyrTEC) 10 MG tablet, Take 1 tablet by mouth once daily, Disp: 30 tablet, Rfl: 11 divalproex (DEPAKOTE) [address] tablet, Take [...] 20 doses., Disp: 20 capsule, Rfl: 0 ipratropium-albuterol (DUO-NEB) 0.5-2.5 mg/3 ml nebulizer, Take 3 mL by nebulization Every 4 (Four)Hours As Needed for Wheezing., Disp: 360 mL, Rfl: 0 lactulose (CHRONULAC) 10 GM/15ML solution, Take 30 mL by mouth 2 (Two) Times a Day As Needed (constipation)., Disp: 473 mL, Rfl: 1 lisinopril-hydrochlorothiazide (PRINZIDE,ZESTORETIC) 20-12.5 MG per tablet, Take [...] [facility]TICOAGULATION [facility]IC, Disp: 90 tablet, Rfl: 0 Cojkshtdkxo-Hbaydfixh-Tkfjtc (Trelegy Ellipta) 100-62.5-25 MCG/ACT inhaler, Inhale 1 puff Daily., Disp: 2 each, Rfl: 0 Allergies: Allergies Allergen Reactions Cefdinir Other (See Comments) C. Diff colitis Penicillins Dizziness Objective Physical Exam: Please see above Vital Signs: Vitals: 01/09/25 0915 BP: 132/60 Pulse: 68 Temp: 98.2 ??F (36.8 ??C) TempSrc: Infrared SpO2: 93% Weight: 105 kg (232 lb) Height: 175.3 cm (69.02 ) PainSc: 0-No pain Body mass index is 34.24 kg/m??. Physical Exam Vitals and nursing note reviewed. Constitutional: Appearance: Normal appearance. HENT: Head: Normocephalic and atraumatic. Neck: Vascular: No carotid bruit. Cardiovascular: Rate and Rhythm: Normal rate and regular rhythm. Heart sounds: Normal heart sounds. No murmur heard. Pulmonary: Effort: Pulmonary effort is normal. Comments: Breath sounds decreased but present in all lung smith today. Abdominal: General: Bowel sounds are normal. Palpations: Abdomen is soft. There is no mass. Tenderness: There is no abdominal tenderness. Musculoskeletal: Right lower leg: No edema. Left lower leg: No edema. Skin: Coloration: Skin is not jaundiced or pale. Findings: No erythema. Neurological: Mental Status: He is alert. Mental status is at baseline. Psychiatric: Mood and Affect: Mood normal. Behavior: Behavior normal. XR CHEST PA AND LATERAL Date of Exam: 01/05/2025 10:24 AM EDT Indication: cxr, COPD exac with new oxygen requirement. Comparison: None available. Findings: The lungs are clear bilaterally. Pleural spaces are normal. Cardiac and mediastinal contours are within normal limits. Regional skeleton is within normal limits for age. IMPRESSION: Impression: No acute cardiopulmonary disease. Electronically Signed: Hudson Vernon MD 01/06/2025 12:38 PM EDT Workstation ID: [id number] Procedures Results: Labs: Hemoglobin A1C Date Value Ref Range Status 04/22/2024 6.00 (H) 4.80 - 5.60 % Final TSH Date Value Ref Range Status 05/05/2024 1.250 0.270 - 4.200 uIU/mL Final POCT Results (if applicable): Results for orders placed or [...] add-ons. Respiratory Panel PCR w/COVID-19(SARS-CoV-2) SINA/JEZ/FLORA/PAD/COR/ROSALVA In-House, CUSTOM SKI MAKER Swab in UTM/VTM, 2 HR TAT - [...] Range Magnesium 2.1 1.6 - 2.4 mg/dL Comprehensive Metabolic Panel Collection Time: 01/02/25 5:50 AM Specimen: Blood Result Value Ref Range Glucose 130 (H) 65 - 99 mg/dL BUN 25.1 (H) 8.0 - 23.0 mg/dL Creatinine 0.87 0.76 - 1.27 mg/dL Sodium 138 136 - 145 mmol/L Potassium 4.5 3.5 - 5.2 mmol/L Chloride 102 98 - 107 mmol/L CO2 26.3 22.0 - 29.0 mmol/L Calcium 9.5 8.6 - 10.5 mg/dL Total Protein 6.4 6.0 - 8.5 g/dL Albumin 3.8 3.5 - 5.2 g/dL ALT (SGPT) 15 1 - 41 U/L AST (SGOT) 21 1 - 40 U/L Alkaline Phosphatase 99 39 - 117 U/L Total Bilirubin 0.3 0.0 - 1.2 mg/dL Globulin 2.6 gm/dL A/G Ratio 1.5 g/dL BUN/Creatinine Ratio 28.9 (H) 7.0 - 25.0 Anion Gap 9.7 5.0 - 15.0 mmol/L eGFR 98.8 >60.0 mL/min/1.73 CBC Auto Differential Collection Time: 01/02/25 5:50 AM Specimen: Blood Result Value Ref Range WBC 12.81 (H) 3.40 - 10.80 10*3/mm3 RBC 4.81 4.14 - 5.80 10*6/mm3 Hemoglobin 14.7 13.0 - 17.7 g/dL Hematocrit 41.8 37.5 - 51.0 % MCV 86.9 79.0 - 97.0 fL MCH 30.6 26.6 - 33.0 pg MCHC 35.2 31.5 - 35.7 g/dL RDW 12.4 12.3 - 15.4 % RDW-SD 40.3 37.0 - 54.0 fl MPV 9.3 6.0 - 12.0 fL Platelets 154 140 - 450 10*3/mm3 Neutrophil % 86.9 (H) 42.7 - 76.0 % Lymphocyte % 9.8 (L) 19.6 - 45.3 % Monocyte % 3.0 (L) 5.0 - 12.0 % Eosinophil % 0.1 (L) 0.3 - 6.2 % Basophil % 0.0 0.0 - 1.5 % Immature Grans % 0.2 0.0 - 0.5 % Neutrophils, Absolute 11.13 (H) 1.70 - 7.00 10*3/mm3 Lymphocytes, Absolute 1.26 0.70 - 3.10 10*3/mm3 Monocytes, Absolute 0.38 0.10 - 0.90 10*3/mm3 Eosinophils, Absolute 0.01 0.00 - 0.40 10*3/mm3 Basophils, Absolute 0.00 0.00 - 0.20 10*3/mm3 Immature Grans, Absolute 0.03 0.00 - 0.05 10*3/mm3 Protime-INR Collection Time: 01/02/25 5:50 AM Specimen: Blood Result Value Ref Range Protime 25.5 (H) 12.2 - 14.5 Seconds INR 2.24 (H) 0.89 - 1.12 *Note: Due to a large number of results and/or encounters for the requested time period, some results have not been displayed. A complete set of results can be found in Results Review. PHQ-9: PHQ-9 Total Score: Imaging: No valid procedures specified. Measures: Advanced Care Planning: Patient does not have an advance directive, declines further assistance. Smoking Cessation: less than 3 minutes spent counseling Will try to cut down Assessment / Plan Assessment/Plan: 1. Chronic obstructive pulmonary disease, unspecified COPD type Trelegy sample lot [id number] #2 exp 03/2026 Patient encouraged to keep appt with pulmonology upcoming. Trial of Trelegy. Continue albuterol. - Ffhpdqgaosx-Sgohzonlm-Ttcred (Trelegy Ellipta) 100-62.5-25 MCG/ACT inhaler; Inhale 1 puff Daily. Dispense: 2 each; Refill: 0 2. Requires supplemental oxygen O2 down to 87 on room air while seated today. Overall patient feels he is improving. Patient to continue oxygen for now. 3. Parainfluenza infection Tested positive 01/01/25. Discussed with patient: Start Trelegy once daily inhalation. Continue albuterol. Keep upcoming appointment with pulmonology Vaccine Counseling: Follow Up: Return in about 2 weeks (around 01/23/2025) for Follow Up for COPD with pcp Dr. Sterling.. DO NIRMAL Fischer documented in this encounter Plan of Treatment Upcoming Encounters Date Type Department Care Team (Late st Contact Info) Description 03/12/2025 8:30 AM EDT Office Visit [facility] [address] [place] [address] Rae Truong, TOOL DRESSER [address] [place] [address] 04/29/2025 9:30 AM EDT Office Visit [facility] [address] [phone] Fauzia Sterling MD [address] [address] documented as of this encounter Goals Goal [...] Monitored Care Plan Hypertension (Hypertension) No Claudia Reno RN Note: Evidence-based guidance: Promote initial use [...] Treatment Maximized Care Plan Resistant Hypertension (Hypertension) Claudai Ward RN Note: Evidence-based guidance: Assess patient response [...] present. Notes: documented as of this encounter Visit Diagnoses Diagnosis Chronic obstructive pulmonary disease, unspecified COPD type- Primary Parainfluenza infection Other specified diseases due to viruses Requires supplemental oxygen documented in this encounter Additional Health Concerns Active Problems Noted Date Diagnosed Date Hypertension (Hypertension) 05/08/2024 Disease Progression (Hypertension) 05/08/2024 Resistant Hypertension (Hypertension) 05/08/2024 Infection Onset Date Last Indicated Resolved Time Other Comment:Parainfluenza 3 per RVP 01.01.2025 01/02/2025 01/02/2025 documented as of this encounter Care Teams Salesperson Wigs Relationship Specialty Start Date End Date Fauzia Sterling MD [address] [address] PCP - General Family Medicine 09/03/18 documented as of this encounter
--- OUTSIDE RECORDS SUMMARY | 2025-01-11 18:15 | XMS_ITS | Encounter Summary ---
[facility] Address [address] [place] [address] Care Team Providers Care Water Tender Name Role Phone Fauzia Sterling MD Primary Care Provider [phone] Reason for Visit * Reason Comments Arm Pain Encounter Details Date Type Department Care Team (Late st Contact Info) Description 01/11/2025 6:15 PM EDT - 01/11/2025 7:38 PM EDT Emergency [facility] [place] [address] Vahid Joe, DO [address] [place] [address] Marek Pate, DO [address] [place] [address] Numbness or tingling of left arm (Primary Dx) Discharge Disposition: Home or Self Care Social History Tobacco Use Types Packs/Day Years Used Date Smoking Tobacco: Every Day Cigarettes 1 35 Passive Smoke Exposure: Current Smokeless Tobacco: Never Comments:Smoking 1-1 1/2 pac k a day Alcohol Use Standard Drinks/Week Comments No 0 (1 standard drink = 0.6 oz pur e alcohol) [facility] Utilities Answer Date Recorded In the past 12 months has [email or web address] electric, gas, oil, or water company threatened [...] time in the past [address] [facility], were you homeless or living in a prison (including now)? No 11/18/2024 Abuse Screen Answer [...] Sign Reading Time Taken Comments Blood Pressure 109/66 01/11/2025 7:00 PM EDT Pulse 63 01/11/2025 7:00 PM EDT Temperature 37 C (98.6 F) 01/11/2025 6:13 PM EDT Respiratory Rate 18 01/11/2025 6:13 PM EDT Oxygen Saturation 95% 01/11/2025 7:00 PM EDT Inhaled Oxygen Concentration - - Weight 105 kg (231 lb 7.7 oz) 01/11/2025 6:13 PM EDT Height 175 cm (5' 8.9 ) 01/11/2025 6:13 PM EDT Body Mass Index 34.29 01/11/2025 6:13 PM EDT documented in this encounter Functional Status * Calculated C-SSRS Risk Score (Lifetime/Recent) Answer Date of Assessment Author No Risk Indicated 01/11/2025 6:12 PM EDT Usha Hi RN * [place] Suicide Severity Rating Scale (Screener/Recent Self-Report) Question Answer Date of Assessment Author 1. Wish to be (Past 1 Month) No 025 6:12 PM EDT Usha Hi RN 2. Non-Specific Active Suici sean Thoughts (Past 1 Month) No 01/11/2025 6:12 PM EDT Susan Hi RN 6. Suicidal Behavior (Lifetime) No 6:12 PM EDT Usha Hi RN documented as of this encounter Discharge Instructions * Discharge Instructions* Aly Voss PA-C - 01/11/2025 7:30 PM EDT You were seen in the emergency department for numbness and tingling in the left arm. Although your imaging was normal it is advised that you follow-up with your primary care physician for reevaluation of your symptoms and continued care. Return to the emergency department upon any worsening of symptoms including but not limited to chest pain, shortness of breath, worsening headache, loss of consciousness. * Attachments The following attachments cannot be sent through Care Everywhere. * Paresthesia [id number] ([place]) * Cervical Radiculopathy Kjtt-pf-Sghz ([place]auan) documented in this encounter Medications at Time [...] per SL tablet 1 tablet Daily. 9 carvedilol (COREG) 25 MG tabletIndications :Essential hypertension TAKE 1 TABLET BY MOUTH TWICE DAILY WITH MEALS 60 tablet 5 cetirizine (zyrTEC) 10 MG tabletIndications :Seasonal allergic [...] up the medication 50 each 3 4 omeprazole (priLOSEC) 40 MG capsuleIndication s:Gastroesophagea l reflux disease without esophagitis Take 1 capsule by mouth once daily 90 capsule 5 potassium chloride (KLOR-CON M20) 20 MEQ CR tabletIndications :Renovascular hypertension Take 1 tablet by mouth once daily 90 tablet 5 warfarin (COUMADIN) 5 MG tabletIndications :Anticoagulant long-term use TAKE 1 TO 2 TABLETS BY MOUTH ONCE DAILY DIRECTED BY ANTICOAGULATION CLINIC 90 tablet 4 amLODIPine (NORVASC) 10 MG tabletIndications :Essential hypertension Take 1 tablet by mouth once daily 90 tablet 5 01/29/20 25 busPIRone (BUSPAR) 5 MG tabletIndications :Anxiety Take 1 tablet by mouth twice daily 180 tablet 5 01/27/20 25 carvedilol (COREG) 25 MG tabletIndications :Essential hypertension TAKE 1 TABLET BY MOUTH TWICE DAILY WITH MEALS 60 tablet 5 01/13/20 25 Fluticasone-Umecl idin-Vilant (Trelegy Ellipta) 100-62.5-25 MCG/ACT inhalerIndication s:Chronic obstructive pulmonary disease, unspecified COPD type Inhale 1 puff Daily. 2 each 5 01/28/20 25 Ventolin HFA 108 (90 Base) MCG/ACT [...] Miscellaneous Notes * [facility] Provider Note - Aly Voss PA-C - 01/11/2025 6:31 PM EDT Subjective History of Present Illness: Patient is a 59-year-old male presenting to the emergency department with complaints of numbness and tingling in the right arm x 3 to 4 days. Patient states that he has had this sensation on and off over the last 3 to 4 days. He is unaware of anything that brings this sensation on and unaware of anything that makes it better. He reports coming to the emergency room today because he felt like thisepisode was longer than previous. He also reports a headache that has occurred for the last 3 to 4 days, however he reports history of longstanding headaches. He reports that this headache has improved since taking 2 Tylenol around noon today. He denies decree sensation, decrease strength, change in gait, changes in vision, sudden onset of headache, nausea or vomiting, confusion, weakness or dizziness. On exam patient's neurological exam is normal. He is hemodynamically stable and afebrile on exam. Nurses Notes reviewed and agree, including vitals, allergies, social history and prior medical history. REVIEW OF SYSTEMS: All systems reviewed and not pertinent unless noted. Review of Systems Neurological: Positive for numbness (Left arm) and headaches. All other systems reviewed and [...] Heart Cath; Surgeon: Terry Bustillo MD; Location: [facility]; Service: Cardiovascular; Laterality: N/A; [...] Problems Paternal Grandfather Objective Physical Exam: BP 109/66 Pulse 63 Temp 98.6 ??F (37 ??C) (Oral) Resp 18 Ht 175 cm (68.9 ) Wt 105 kg (231lb 7.7 oz) SpO2 95% BMI 34.29 kg/m?? Physical Exam Constitutional: General: He is not in acute distress. Appearance: Normal appearance. He is normal weight. He is not ill-appearing or toxic-appearing. HENT: Head: Normocephalic and atraumatic. Eyes: Extraocular Movements: Extraocular movements intact. Pupils: Pupils are equal, round, and reactive to light. Cardiovascular: Rate and Rhythm: Normal rate. Pulmonary: Effort: Pulmonary effort is normal. No respiratory distress. Abdominal: General: Abdomen is flat. Palpations: Abdomen is soft. Musculoskeletal: General: No swelling, tenderness, deformity or signs of injury. Normal range of motion. Cervical back: Normal range of motion. Skin: General: Skin is warm and dry. Capillary Refill: Capillary refill takes less than 2 seconds. Coloration: Skin is not pale. Findings: No erythema. Neurological: General: No focal deficit present. Mental Status: He is alert and oriented to person, place, and time. Cranial Nerves: No cranial nerve deficit. Sensory: No sensory deficit. Motor: No weakness. Gait: Gait normal. Psychiatric: Mood and Affect: Mood normal. Behavior: Behavior normal. Procedures ED Course: Lab Results (last 24 hours) No results found for the last [address] Head Without Contrast Result Date: 01/11/2025 CT CERVICAL SPINE WO CONTRAST, CT HEAD WO CONTRAST Date of Exam: 01/11/2025 6:43 PM EDT Indication: L arm numbness/tingling. Comparison: None available. Technique: Axial CT images were obtained of thehead and cervical spine without contrast administration. Reconstructed coronal and sagittal images were also obtained. Automated exposure control and iterative construction methods were used. Findings: CT head: There is no evidence of acute intracranial hemorrhage, mass, midline shift, loss of matthews-white matter differentiation, or extra-axial fluid collection. There is normal ventricular volume. The basal cisterns are patent. No evidence of fracture. Scattered mucosal thickening of the paranasal sinuses. There is a left mastoid air cell effusion. The orbits and included soft tissues show no acute abnormality. CT cervical spine: There is no evidence of acute fracture. Straightening of normalcervical lordosis which is likely positional. The craniocervical junction is intact. 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 Small endplate osteophyte formations with mild facet arthropathy. No evidence of severe canal narrowing. Paraspinal soft tissues show no acute abnormality. There is abenign-appearing subcutaneous lipoma measuring 5.4 cm in the right posterior upper back/lower neck soft tissues. Impression: Impression: 1.No acute intracranial abnormality. 2.No acute fracture or malalignment ofthe cervical spine. 3.Mild cervical degenerative changes. Electronically Signed: Yoni Wright MD 01/11/2025 7:18 PM EDT Workstation ID: [id number] CT Cervical Spine Without Contrast Result Date: 01/11/2025 CT CERVICAL SPINE WO CONTRAST, CT HEAD WO CONTRAST Date of Exam: 01/11/2025 6:43 PM EDT Indication: L arm numbness/tingling. Comparison: None available. Technique: Axial CT images were obtained of thehead and cervical spine without contrast administration. Reconstructed coronal and sagittal images were also obtained. Automated exposure control and iterative construction methods were used. Findings: CT head: There is no evidence of acute intracranial hemorrhage, mass, midline shift, loss of matthews-white matter differentiation, or extra-axial fluid collection. There is normal ventricular volume. The basal cisterns are patent. No evidence of fracture. Scattered mucosal thickening of the paranasal sinuses. There is a left mastoid air cell effusion. The orbits and included soft tissues show no acute abnormality. CT cervical spine: There is no evidence of acute fracture. Straightening of normalcervical lordosis which is likely positional. The craniocervical junction is intact. 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 Small endplate osteophyte formations with mild facet arthropathy. No evidence of severe canal narrowing. Paraspinal soft tissues show no acute abnormality. There is abenign-appearing subcutaneous lipoma measuring 5.4 cm in the right posterior upper back/lower neck soft tissues. Impression: Impression: 1.No acute intracranial abnormality. 2.No acute fracture or malalignment ofthe cervical spine. 3.Mild cervical degenerative changes. Electronically Signed: Yoni Wright MD 01/11/2025 7:18 PM EDT Workstation ID: [id number] Initial impression of presenting illness: Patient is a well-developed and well- nourished 59-year-old male who appears in no acute distress on exam. DDX: includes but is not limited to: Cervical radiculopathy, paresthesia, peripheral neuropathy Pertinent features from physical exam: Patient is hemodynamically stable and afebrile on exam. Neurologic exam normal, patient has retained sensation and strength to entire left arm.. Initial diagnostic plan: Imaging of head and cervical spine. There is no indication for cardiac workup due to patient having no chest pain, shortness of breath, palpitations, weakness. Results from initial plan were reviewed and interpreted by me revealing no acute findings seen on head CT or cervical spine CT. Diagnostic information from other sources: Chart review. Patient has a history of his cervical discdisease previously diagnosed by his primary care provider. Interventions: Medications administered as below Medications - No data to display Reevaluation: Patient continues to deny need for pain medication at this time. Counseling: Discussed the results above with the patient regarding need for follow-up with primary care. Advised him that this is most likely due to cervical radiculopathy, lumbar should follow-up with his primary care physician for further care and reevaluation of his symptoms. Discussed with patient strict return precautions that warrant return to the emergency department. patient understands and agrees plan of care. ----- ED Disposition ED Disposition Discharge Condition Stable Comment Follow-up with primary care Final diagnoses: Numbness or tingling of left arm Your Follow-Up Providers Fauzia Sterling MD. Schedule an appointment as soon as possible for a visit in 3 days. Specialty: Family Medicine Follow up details: Reevaluation of todays symptoms [address] [place] [address] [facility] [id number] Go to [facility] [place]. Specialty: Emergency Medicine Follow up details: As needed, If symptoms worsen [address] [facility] [place] [address] [facility] [phone] Contact information for after-discharge care Follow-up information [...] Take 1 tablet by mouth once daily buprenorphine-naloxone 8-2 MG per SL tablet Commonly [...] 1 Device As Needed (Injection of Testosterone). ipratropium-albuterol 0.5-2.5 mg/3 ml nebulizer Commonly known as: DUO-NEB Take 3 mL by nebulization Every 4 (Four) Hours As Needed for Wheezing. lactulose 10 GM/15ML solution Commonly known as: CHRONULAC Take 30 mL by mouth 2 (Two) Times a Day As Needed (constipation). lisinopril-hydrochlorothiazide 20-12.5 MG per tablet Commonly known as: PRINZIDE,ZESTORETIC Take 2 tablets by mouth once daily Needle (Disp) 18G X 1-1/2 misc Use for drawing up the medication omeprazole 40 MG capsule Commonly known as: priLOSEC Take 1 capsule by mouth once daily potassium chloride 20 MEQ CR tablet Commonly known as: KLOR-CON M20 Take 1 tablet by mouth once daily Trelegy Ellipta 100-62.5-25 MCG/ACT inhaler Generic drug: Gaexzyjuuqx-Laethalpp-Prnpin Inhale 1 puff Daily. Ventolin HFA 108 (90 Base) MCG/ACT [...] DIFFERENT DAYS THAN 5 MG Cosigned by Marek Pate DO at 01/11/2025 8:43 PM EDT Associated attestation - Marek Pate DO - 01/11/2025 8:43 PM EDT SUPERVISE: For this patient encounter, I reviewed the APC's documentation, treatment plan, and medical decision making. Marek Pate DO 01/11/2025 20:43 EDT documented in this encounter Plan of Treatment Upcoming Encounters Date Type Department Care Team (Late st Contact Info) Description 03/12/2025 8:30 AM EDT Office Visit [facility] [address] [place] [phone] Rae Truong, MINING ENGINEER [address] [place] [address] 04/29/2025 9:30 AM EDT Office Visit [facility] [address] [phone] Fauzia Sterling MD [address] [facility] [address] [place] [address] documented as of this encounter Goals Goal [...] Procedure Name Priority Date/Time Associated Diagnosis Comments CT CERVICAL SPINE WO CONTRAST STAT 01/11/2025 6:[address] HEAD WO CONTRAST STAT 01/11/2025 6 :50 PM EDT documented in this encounter Results * CT Cervical Spine Without Contrast (01/11/2025 6:50 PM EDT) Anatomical Region Laterality Modality C-spine N/A Computed Tomogra phy 01/11/2025 7:15 PM EDT Impressions 01/11/2025 7:18 PM EDT Impression: 1.No acute intracranial abnormality. 2.No acute fracture or malalignment of the cervical spine. 3.Mild cervical degenerative changes. Electronically Signed: Yoni Wright MD 01/11/2025 7:18 PM EDT Workstation ID: [id number] Narrative 01/11/2025 7:[address] CERVICAL SPINE WO CONTRAST, CT HEAD WO CONTRAST Date of Exam: 01/11/2025 6:43 PM EDT Indication: L arm numbness/tingling. Comparison: None available. Technique: Axial CT images were obtained of the head and cervical spine without contrast administration. Reconstructed coronal and sagittal images were also obtained. Automated exposure control and iterative construction methods were used. Findings: CT head: There is no evidence of acute intracranial hemorrhage, mass, midline shift, loss of matthews-white matter differentiation, or extra-axial fluid collection. There is normal ventricular volume. The basal cisterns are patent. No evidence of fracture. Scattered mucosal thickening of the paranasal sinuses. There is a left mastoid air cell effusion. The orbits and included soft tissues show no acute abnormality. CT cervical spine: There is no evidence of acute fracture. Straightening of normal cervical lordosis which is likely positional. The craniocervical junction is intact. 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 Small endplate osteophyte formations with mild facet arthropathy. No evidence of severe canal narrowing. Paraspinal soft tissues show no acute abnormality. There is a benign-appearing subcutaneous lipoma measuring 5.4 cm in the right posterior upper back/lower neck soft tissues. Procedure Note Yoni Wright MD - 01/11/2025 CT CERVICAL SPINE WO CONTRAST, CT HEAD WO CONTRAST Date of Exam: 01/11/2025 6:43 PM EDT Indication: L arm numbness/tingling. Comparison: None available. Technique: Axial CT images were obtained of the head and cervical spinewithout contrast administration. Reconstructed coronal and sagittalimages were also obtained. Automated exposure control and iterativeconstruction methods were used. Findings: CT head: There is no evidence of acute intracranial hemorrhage, mass, midlineshift, loss of matthews-white matter differentiation, or extra-axial fluidcollection. There is normal ventricular volume. The basal cisterns arepatent. No evidence of fracture. Scattered mucosal thickening of the paranasalsinuses. There is a left mastoid air cell effusion. The orbits and included soft tissues show no acute abnormality. CT cervical spine: There is no evidence of acute fracture. Straightening of normal cervicallordosis which is likely positional. The craniocervical junction isintact. 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 Small endplateosteophyte formations with mild facet arthropathy. No evidence of severe canal narrowing. Paraspinal softtissues show no acute abnormality. There is a benign-appearingsubcutaneous lipoma measuring 5.4 cm in the right posterior upperback/lower neck soft tissues. IMPRESSION: Impression: 1.No acute intracranial abnormality. 2.No acute fracture or malalignment of the cervical spine. 3.Mild cervical degenerative changes. Electronically Signed: Yoni Wright MD 01/11/2025 7:18 PM EDT Workstation ID: [id number] Aly Voss PA-C IMAntoni CT ORDERABLES Final Resu lt * CT Head Without Contrast (01/11/2025 6:50 PM EDT) Anatomical Region Laterality Modality Head N/A Computed Tomogra phy 01/11/2025 7:15 PM EDT Impressions 01/11/2025 7:18 PM EDT Impression: 1.No acute intracranial abnormality. 2.No acute fracture or malalignment of the cervical spine. 3.Mild cervical degenerative changes. Electronically Signed: Yoni Wright MD 01/11/2025 7:18 PM EDT Workstation ID: [id number] Narrative 01/11/2025 7:[address] CERVICAL SPINE WO CONTRAST, CT HEAD WO CONTRAST Date of Exam: 01/11/2025 6:43 PM EDT Indication: L arm numbness/tingling. Comparison: None available. Technique: Axial CT images were obtained of the head and cervical spine without contrast administration. Reconstructed coronal and sagittal images were also obtained. Automated exposure control and iterative construction methods were used. Findings: CT head: There is no evidence of acute intracranial hemorrhage, mass, midline shift, loss of matthews-white matter differentiation, or extra-axial fluid collection. There is normal ventricular volume. The basal cisterns are patent. No evidence of fracture. Scattered mucosal thickening of the paranasal sinuses. There is a left mastoid air cell effusion. The orbits and included soft tissues show no acute abnormality. CT cervical spine: There is no evidence of acute fracture. Straightening of normal cervical lordosis which is likely positional. The craniocervical junction is intact. 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 Small endplate osteophyte formations with mild facet arthropathy. No evidence of severe canal narrowing. Paraspinal soft tissues show no acute abnormality. There is a benign-appearing subcutaneous lipoma measuring 5.4 cm in the right posterior upper back/lower neck soft tissues. Procedure Note Yoni Wright MD - 01/11/2025 CT CERVICAL SPINE WO CONTRAST, CT HEAD WO CONTRAST Date of Exam: 01/11/2025 6:43 PM EDT Indication: L arm numbness/tingling. Comparison: None available. Technique: Axial CT images were obtained of the head and cervical spinewithout contrast administration. Reconstructed coronal and sagittalimages were also obtained. Automated exposure control and iterativeconstruction methods were used. Findings: CT head: There is no evidence of acute intracranial hemorrhage, mass, midlineshift, loss of matthews-white matter differentiation, or extra-axial fluidcollection. There is normal ventricular volume. The basal cisterns arepatent. No evidence of fracture. Scattered mucosal thickening of the paranasalsinuses. There is a left mastoid air cell effusion. The orbits and included soft tissues show no acute abnormality. CT cervical spine: There is no evidence of acute fracture. Straightening of normal cervicallordosis which is likely positional. The craniocervical junction isintact. 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 Small endplateosteophyte formations with mild facet arthropathy. No evidence of severe canal narrowing. Paraspinal softtissues show no acute abnormality. There is a benign-appearingsubcutaneous lipoma measuring 5.4 cm in the right posterior upperback/lower neck soft tissues. IMPRESSION: Impression: 1.No acute intracranial abnormality. 2.No acute fracture or malalignment of the cervical spine. 3.Mild cervical degenerative changes. Electronically Signed: Yoni Wright MD 01/11/2025 7:18 PM EDT Workstation ID: [id number] Aly Voss PA-C IMG CT ORDERABLES Final Resu lt documented in this encounter Visit Diagnoses Diagnosis Numbness or tingling of left arm- Primary documented in this encounter Additional Health Concerns Active Problems Noted Date Diagnosed Date Hypertension (Hypertension) 05/08/2024 Disease Progression (Hypertension) 05/08/2024 Resistant Hypertension (Hypertension) 05/08/2024 Infection Onset Date Last Indicated Resolved Time Other Comment:Parainfluenza 3 per RVP 01.01.2025 01/02/2025 01/02/2025 documented as of this encounter Care Teams Water Tender Relationship Specialty Start Date End Date Fauzia Sterling MD [address] [address] PCP - General Family Medicine 09/03/18 documented as of this encounter
--- OUTSIDE RECORDS SUMMARY | 2025-01-27 09:30 | XMS_ITS | Encounter Summary ---
Author Organization [facility] Address [address] [place] [address] Care Team Providers Care Security Delivery Specialist Name Role Phone Fauzia Sterling MD Primary Care Provider [phone] Reason for Visit * Reason Comments Follow-up COPD Encounter Details Date Type Department Care Team (Late st Contact Info) Description 01/27/2025 9:30 AM EDT Office Visit [facility] [address] [phone] [place] [address] [place] [id number] Requires supplemental oxygen (Primary Dx); COPD with exacerbation; Tobacco abuse; Chronic obstructive pulmonary disease, unspecified COPD type; Left otitis media with effusion Social History Tobacco Use Types Packs/Day Years Used Date Smoking Tobacco: Every Day Cigarettes 1 35 Passive Smoke Exposure: Current Smokeless Tobacco: Never Tobacco Cessation:Ready to Q uit: Yes; Counseling Given: Not Answered Comments:Smoking 1-1 1/2 pack a day Alcohol Use Standard Drinks/Week Comments No 0 (1 standard drink = 0.6 oz pur e alcohol) [facility] Utilities Answer Date Recorded In the past 12 months has th e [employer], gas, oil, or water company threatened to [...] any time in [facility], were you homeless or living [...] Sign Reading Time Taken Comments Blood Pressure 112/72 01/27/2025 8:57 AM EDT Pulse 70 01/27/2025 8:57 AM EDT Temperature 36.7 C (98 F) 01/27/2025 8:57 AM EDT Respiratory Rate - - Oxygen Saturation 98% 01/27/2025 8:57 AM EDT Inhaled Oxygen Concentration - - Weight 112 kg (247 lb) 01/27/2025 8:57 AM EDT Height 175 cm (5' 8.9 ) 01/27/2025 8:57 AM EDT Body Mass Index 36.58 01/27/2025 8:57 AM EDT documented in this encounter Progress Notes * Fauzia Sterling MD - 01/27/2025 9:30 AM EDT Subjective Jesus Perales is a 59 y.o. male. History of Present Illness The patient is a 59-year-old male here for a follow-up of his COPD exacerbation. He was recently seen in the ER at [facility] on 01/11/2025 for numbness and tingling of his left arm. He is currently on 3 liters of oxygen and has an upcoming appointment with a blue leather sorter on 02/05/2025. He has reduced his smoking to half a pack per day. His current medication includes Trelegy, which he finds beneficial. He no longer uses nebulizers but still has one at home. Since starting Trelegy, he has not needed albuterol. He uses oxygen continuously and reports a significant reduction in wheezing compared to before. He was given 2 samples of Trelegy and has only 4 to 6 days' worth of medication left. He also reports new-onset hearing loss in his left ear and severe dizziness, which he suspects may be related to his ear condition. He has not taken antibiotics recently, with his last course being about a month ago. He has a history of fluid accumulation behind his ears. SOCIAL HISTORY The patient admits to smoking about a half a pack a day. The following portions of the patient's history [...] itching and visual disturbance. Respiratory: Positive for cough and shortness of breath. Negative for chest tightness and wheezing. Cardiovascular: Negative for chest pain, palpitations and [...] ideas. The patient is not nervous/anxious. Objective Vitals: 01/27/25 0857 BP: 112/72 Pulse: 70 Temp: 98 ??F (36.7 ??C) TempSrc: Infrared SpO2: 98% Weight: 112 kg (247 lb) Height: 175 cm (68.9 ) Physical Exam Vitals and nursing note reviewed. Constitutional: Appearance: He is well-developed. Comments: He is wearing his nasal cannula oxygen HENT: Head: Normocephalic and atraumatic. Ears: Comments: Left tympanic membrane is dull injected erythematous fluid Right tympanic membrane is injected Eyes: General: No scleral icterus. Right eye: [...] normal. Judgment: Judgment normal. Assessment & Plan Problem List Items Addressed This Visit ENT Left otitis media with effusion Relevant Medications doxycycline (VIBRAMYCIN) 100 MG capsule Pulmonary and Pneumonias COPD with exacerbation Relevant Medications Oqxvefrfyxl-Frxbqipfp-Cprahc (Trelegy Ellipta) 100-62.5-25 MCG/ACT inhaler Requires supplemental oxygen - Primary Tobacco Tobacco abuse Other Visit Diagnoses Chronic obstructive pulmonary disease, unspecified COPD type Relevant Medications Tnddqhsctuy-Dvnxqtwqa-Drblkg (Trelegy Ellipta) 100-62.5-25 MCG/ACT inhaler Assessment & Plan 1. Chronic obstructive pulmonary disease (COPD) exacerbation. - Oxygen levels are satisfactory today. - Significant improvement in symptoms with Trelegy, including reduced wheezing. - Currently on 3 liters of oxygen continuously. - Prescription for Trelegy will be sent to pharmacy, and a sample of Trelegy will be provided. Advised to continue using oxygen as needed, as it improves survival in COPD patients. Follow-up with blue leather sorter on 02/05/2025. 2. Left ear infection. - Reports dizziness and hearing loss in the left ear. - Examination reveals the left ear is red and dull, indicating an infection. - Doxycycline will be prescribed due to allergies to penicillin and cefdinir. Follow-up - Follow up in 3 months. Patient or patient field support representative verbalized consent for the use of Ambient Listening during the visit with Fauzia Sterling MD for chart documentation. 01/27/2025 09:53 EDT documented in this encounter Plan of Treatment Upcoming Encounters Date Type Department Care Team (Late st Contact Info) Description 03/12/2025 8:30 AM EDT Office Visit [facility] [address] [place] [address] Rae Truong, FRONT END JAVA DEVELOPER [address] [place] [address] 04/29/2025 9:30 AM EDT Office Visit [facility] [address] [facility] [address] [place] [phone] Fauzia Sterling MD [address] [facility] [address] [place] [address] documented as of this encounter Goals Goal Patient Goal Type Associated Problems Recent Progress Patient-Stated? Author Track and Manage My Blood Pressure Patient Goals On track(2024 10:45 AM EST) Claudia Ward, JAYCEE Note: - choose a place to [...] it. Hypertension Monitored Care Plan Hypertension (Hypertension) Claudia Ward, JAYCEE Note: Evidence-based guidance: Promote initial use [...] of pharmacologic therapy that may include diuretic, beta-jsoe carlos, beta-jose carlos/thiazide combination, angiotensin-converting enzyme inhibitor, [...] as of this encounter Visit Diagnoses Diagnosis Requires supplemental oxygen- Primary COPD with exacerbation Tobacco abuse Tobacco use disorder Chronic obstructive pulmonary disease, unspecified COPD type Left otitis media with effusion Nonsuppurative otitis media, not specified as acute or chronic documented in this encounter Additional Health Concerns Active Problems Noted Date Diagnosed Date Hypertension (Hypertension) 05/08/2024 Disease Progression (Hypertension) 05/08/2024 Resistant Hypertension (Hypertension) 05/08/2024 Infection Onset Date Last Indicated Resolved Time Other Comment:Parainfluenza 3 per RVP 01.01.2025 01/02/2025 01/02/2025 documented as of this encounter Care Teams Security Delivery Specialist Relationship Specialty Start Date End Date Fauzia Sterling MD [address] [place] [address] PCP - General Family Medicine 09/03/18 documented as of this encounter
--- OUTSIDE RECORDS SUMMARY | 2025-02-05 09:30 | XMS_ITS | Encounter Summary ---
[facility] Address [address] [place] [address] Care Team Providers Care Loan Inspector Name Role Phone Fauzia Sterling MD Primary Care Provider [phone] Reason for Referral * MRI/CAT/PET Scan (Routine) - Pending Review Specialty Diagnoses / Procedures Referred By Contac t Referred To Contact Radiology Diagnoses Tobacco abuse Procedures CT chest low dose wo Rae Truong, BOX TOE BUFFER [address] [place] [address] Phone: tel: fax: Referral ID Status Reason Start Date Expiration Date V isits Requested Visits Authorized [id number] Pending Review 02/05/2025 05/07/2026 1 1 * Durable Medical Equipment (Routine) - Authorized Specialty Diagnoses / Procedures Referred By Contac t Referred To Contact Diagnoses Chronic respiratory failure with hypoxia Procedures Overnight Sleep Oximetry Study Rae Truong, SIMEON [address] [place] [address] Phone: tel: fax: [facility] [address] [place] [address] Phone: tel: fax: Referral ID Status Reason Start Date Expiration Date V isits Requested Visits Authorized [id number] Authorized 02/05/2025 05/07/2026 1 1 * Diagnostic Medical (Routine) - Closed Specialty Diagnoses / Procedures Referred By Contac t Referred To Contact Pulmonology Diagnoses COPD with acute exacerbation Procedures Spirometry with Diffusion Capacity & Lung Volumes Rae Truong, SIMEON [address] [place] [address] Phone: tel: fax: [facility] [address] [facility] [place] [address] Phone: tel: fax: Referral ID Status Reason Start Date Expiration Date Visits Re quested Visits Authorized [id number] Closed 02/05/2025 05/07/2026 1 1 Reason for Visit * Reason Comments COPD * Consultation (Routine) - Closed Specialty Diagnoses / Procedures Referred By Contac t Referred To Contact Pulmonary Disease / Pulmonology Diagnoses Acute hypoxic respiratory failure COPD with exacerbation Procedures PA OFFICE/OUTPATIENT NEW MODERATE MDM 45 MINUTES Emory Jean PA [address] [facility] [address] [place] [address] Phone: tel: fax: [facility] [address] [facility] [place] [address] Phone: tel: fax: Referral ID Status Reason Start Date Expiration Date Visits Re quested Visits Authorized [id number] Closed 01/02/2025 04/03/2026 1 1 Encounter Details Date Type Department Care Team (Late st Contact Info) Description 02/05/2025 9:30 AM EDT Office Visit [facility] [address] [facility] [place] [address] Rae Truong APRN [address] [place] [address] Chronic obstructive pulmonary disease, unspecified COPD type (Primary Dx); COPD with acute exacerbation; Tobacco abuse; Chronic respiratory failure with hypoxia Social History Tobacco Use Types Packs/Day Years Used Date Smoking Tobacco: Every Day Cigarettes 1 35 Passive Smoke Exposure: Current Smokeless Tobacco: Never Tobacco Cessation:Ready to Q uit: Not Asked; Counseling Given: Not Answered Comments:Smoking 1-1 1/2 pack a day Alcohol Use Standard Drinks/Week Comments No 0 (1 standard drink = 0.6 oz pur e alcohol) [facility] Utilities Answer Date Recorded In the past [...] any time in the past 12 m [facility], were you homeless or living in a fdc (including now)? No 11/18/2024 Abuse Screen Answer [...] Reading Time Taken Comments Blood Pressure 120/72 02/05/2025 8:43 AM EDT Pulse 68 02/05/2025 8:43 AM EDT Temperature 36.7 C (98.1 F) 02/05/2025 8:43 AM EDT Respiratory Rate - - Oxygen Saturation 96% 02/05/2025 8:4 3 AM EDT resting, 3 liters pulse dose Inhaled Oxygen Concentration - - Weight 109 kg (240 lb) 02/05/2025 8:43 AM EDT Height 175 cm (5' 8.9 ) 02/05/2025 8:43 AM EDT Body Mass Index 35.54 02/05/2025 8:43 AM EDT documented in this encounter Progress Notes * Rae Truong, BOX TOE BUFFER - 02/05/2025 9:30 AM EDT [facility] Pulmonary New Patient CHIEF COMPLAINT Suspected COPD and hypoxemia HISTORY OF PRESENT ILLNESS Jesus Perales is a 59 y.o.male with PMH of ongoing tobacco use, COPD, and DVT on warfarin. Recent evaluation at [facility] for a COPD exacerbation who failed out patient therapy also found to be hypoxic discharged on 3 L NC. CTA chest imaging was unrevealing for evidence ofpneumonia, pulmonary embolism, or acute cardiopulmonary process he was treated with DuoNebs, steroids, and azithromycin with plan for pulmonary follow-up as outpatient. Has never been seen by a pulmonary provider in the past. There is a history of COPD, however he hasnever undergone PFTs. He is an ongoing smoker with a 35 pack year history who has tried to cut back. His PCP did placed him on Trelegy 100 which he feels has been beneficial. He is not routinely usinghis DuoNebs since initiating the Trelegy. Has had some peripheral eosinophilia with an AEC 340 in September of 2024. He has been checking his SpO2 regularly and it is frequently above 95%. He is 96% on 3L NC. 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 CT imaging was unrevealing for ILD component. Denies issues with seasonal allergies or pet dander. Denies fever, chills, night sweats, or hemoptysis. No recent sick contacts. No chest pain or palpitations. Denies lower extremity swelling or calf tenderness. Patient Active Problem List Diagnosis Acute bronchitis Arthritis Reduced libido Chronic deep vein thrombosis of lower extremity Hematochezia Gastroenteritis Hematuria Essential hypertension Nocturia Left otitis media with effusion Plantar fasciitis Polyuria Hypovolemia Tobacco abuse Dizziness Nausea Chest pain on exertion Obesity due to excess calories Precordial chest pain Anticoagulant long-term use Carpal tunnel syndrome on both sides Benign paroxysmal positional vertigo due to bilateral vestibular disorder Hypokalemia Acute gastritis without hemorrhage Anxiety Facial flushing Nonintractable headache Gastroesophageal reflux disease without esophagitis Immunization due Elevated glucose level Left flank pain Painful lumpy right breast Abnormal stress test Heart palpitations Left upper quadrant pain Pain of toe of right foot Hyperhidrosis Night sweats Hypogonadism in male BMI 38.0-38.9,adult Polyarthritis Right hip pain Other fatigue COPD with exacerbation Flu-like symptoms Colon cancer screening Seasonal allergic rhinitis due to pollen Dry eye Pain of left thumb Irregular sleep-wake rhythm, nonorganic origin Polycythemia 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 Diff colitis Penicillins Dizziness Current Outpatient Medications: acetaminophen (TYLENOL) 325 MG [...] MG tablet, Take 1 tablet by mouth 2 (Two) Times a Day., Disp: 180 tablet, Rfl:0 carvedilol (COREG) 25 MG tablet, TAKE 1 [...] mouth Daily With Breakfast., Disp: , Rfl: Fqagxnjjeag-Nexkgzqbn-Tbkuvq (Trelegy Ellipta) 100-62.5-25 MCG/ACT inhaler, Inhale 1 puff Daily., Disp: 2 each, Rfl: 3 hydrOXYzine pamoate (VISTARIL) 50 MG capsule, Take [...] MOUTH ONCE DAILY OR DIRECTED BY ANTICOAGULATION CLINC. TAKE ON DIFFERENT DAYS THAN THE 5 MG., Disp: 30 tablet, Rfl: 0 warfarin (COUMADIN) 5 MG tablet, TAKE 1 TO 2 TABLETS BY MOUTH ONCE DAILY DIRECTED BY ANTICOAGULATION CLINIC, Disp: 90 tablet, Rfl: 0 MEDICATION LIST AND ALLERGIES REVIEWED. Social History Tobacco Use Smoking status: Every Day Current packs/day: 1.00 Average packs/day: 1 pack/day for 35.0 years (35.0 ttl pk-yrs) Types: Cigarettes Passive exposure: Current Smokeless tobacco: Never Tobacco comments: Smoking 1-1 1/2 pack a day Vaping Use Vaping status: Never Used Substance Use Topics Alcohol use: No Drug use: Not Currently Types: Amphetamines FAMILY AND SOCIAL HISTORY REVIEWED. Review of Systems Constitutional: Negative for chills, fatigue and fever. Respiratory: Positive for cough and shortness of breath. Negative for chest tightness and wheezing. Cardiovascular: Negative for chest pain, palpitations and leg swelling. Skin: Negative for color change. Psychiatric/Behavioral: Negative for sleep disturbance. All other systems reviewed and are negative. . BP 120/72 Pulse 68 Temp 98.1 ??F (36.7 ??C) Ht 175 cm (68.9 ) Wt 109 kg (240 lb) SpO2 96%Comment: resting, 3 liters pulse dose BMI 35.54 kg/m?? Immunization History Administered Date(s) Administered COVID-19 (MODERNA) 1st,2nd,3rd Dose Monovalent 03/10/2021 COVID-19 (PFIZER) BIVALENT 12+YRS 05/03/2022 Flu Vaccine Intradermal Quad 18-64YR 04/28/2019 Fluzone >6mos 04/08/2016, 04/22/2024 Fluzone (or Fluarix & Flulaval for VFC) >6mos 05/15/2018, 05/26/2020, 05/03/2022, 04/28/2023 Influenza, Unspecified 05/03/2022 Pneumococcal Conjugate 20-Valent (PCV20) 04/23/2023 flucelvax quad pfs =>4 YRS 04/28/2019 Physical Exam Vitals reviewed. Constitutional: General: He is not in acute distress. Appearance: Normal appearance. Comments: Gentleman on oxygen Cardiovascular: Rate and Rhythm: Normal rate and regular rhythm. Pulses: Normal pulses. Heart sounds: Normal heart sounds. Pulmonary: Effort: Pulmonary effort is normal. No respiratory distress. Breath sounds: No wheezing, rhonchi or rales. Skin: General: Skin is warm and dry. Neurological: General: No focal deficit present. Mental Status: He is alert and oriented to person, place, and time. RESULTS PFTs: 02/05/2025: Moderate airway obstruction with FEV1 2.57, 74% predicted. No restriction. Air trapping with residual volume 126%. Reduced DLCO. Imaging: CT Angiogram Chest Pulmonary Embolism Result Date: 01/01/2025 Impression: 1.Negative for pulmonary embolus. 2.No acute cardiopulmonary process. 3.Left adrenal myolipoma. Electronically Signed: Leo Feng MD 01/01/2025 11:23 AM EDT Workstation ID: [id number] CT Chest Low Dose Cancer Screening WO Result Date: 11/21/2024 Impression: 1.No suspicious lung nodules. 2.Atrophic right kidney. Recommendation: Continue annual screening with LDCT. Lung Rads Assessment: Lung- RADS L1 - Negative, <1% chance of malignancy. Electronically Signed: Lima Corona MD 11/21/2024 2:33 PM EDT Workstation ID: [id number] PROBLEM LIST Problem List Items Addressed This Visit Tobacco abuse Relevant Orders CT chest low dose wo Chronic obstructive pulmonary disease - Primary Relevant Medications Pbnzggjdnmk-Ybdreazqc-Vfdrtr (Trelegy Ellipta) 100-62.5-25 MCG/ACT inhaler Chronic respiratory failure with hypoxia Relevant Orders Overnight Sleep Oximetry Study DISCUSSION Mr. Perales is seen today to establish care with our clinic for evaluation of his hypoxemia and suspected underlying COPD after being treated at the [facility] for a COPD exacerbation after failing outpatient therapy. He was treated with DuoNebs, steroids, and azithromycin later placed on Trelegy 100 by his PCP and has done well on this. During his hospital evaluation he was hypoxic and was discharged home on supplemental oxygen. He is an ongoing smoker who carries a history of COPD, however until today has never formally undergone PFTs. COPD Patient has stage II COPD based on PFTs. Trend annually. Also has some air trapping and reduced DLCO. Currently seems to be doing okay from a pulmonary standpoint. 1 exacerbations over the past year requiring overnight hospital evaluation as documented above. Continue Trelegy 100 as he has noted symptom benefit with this. Rinse mouth after to prevent thrush. (refills sent) Continue albuterol/DuoNebs as needed. He is not using this as frequently since starting the Trelegy. Should he develop recurrent exacerbations down the road despite inhaler compliance, would consider escalating his Trelegy 200 as labs in the past have shown some peripheral eosinophilia versus suppressive azithromycin/Daliresp versus Dupixent/Nucala. Phenotype testing today. Patient counseled on monitoring for COPD exacerbation and treatment plan Educated on importance of remaining up to date on vaccinations Currently not a candidate for pulmonary rehab due to his ongoing tobacco use. Chronic hypoxic respiratory failure Noted during his hospitalization for a COPD exacerbation as documented above. Previously he has never been told he needed oxygen and does attend his appointments regularly. SpO2 today is 96% on 3L pulsed dose. Did explain his goal SpO2 is 88-92% and a supratherapeutic SpO2 level can contribute to hypercarbiadown the road. Educated on signs and symptoms of hypercarbia at today's visit. 6 MWT at next visit to start on room air. Will order overnight oximetry to see if he still qualifies for nocturnal oxygen. I did explain thathe needs to not be wearing his supplemental oxygen on the night he completes the study. Currently denies any symptoms concerning for sleep disordered breathing and states that a lot of his sleep-related issues are due to a poor sleep hygiene routine. Did undergo CTA of the chest during his ED evaluation which was unrevealing for pulmonary embolic component. He is chronically anticoagulated on warfarin and denies any missed doses. Down the road should his hypoxemia not improve, would order echocardiogram with bubble study as he has undergone cardiac catheterizations in the past with prior echocardiograms but did not have the bubble study component. Tobacco use Patient is a current smoker with a 35 pack year history. This is ongoing, however he is trying to cut back. Smoking cessation highly recommended- currently no cessation date is set We did discuss smoking cessation methods today and the patient will contact me when ready to implement these changes CTA of the chest as above and unrevealing for any suspicious pulmonary nodules or masses. Does qualify for annual low-dose CT screenings moving forward due December 2025 (order placed). I personally spent a total of 45 minutes on patient visit today including chart review, face to face with the patient obtaining the history and physical exam, review of pertinent images and tests, counseling and discussion and/or coordination of care as described above, and documentation. Total time excludes time spent on other separate services such as performing procedures or test interpretation, if applicable. Electronically signed by Rae Truong APRN, 02/05/25, 10:15 AM EDT. Please note that portions of this note were completed with a voice recognition program. CC: Fauzia Sterling MD documented in this encounter Plan of Treatment Upcoming Encounters Date Type Department Care Team (Late st Contact Info) Description 03/12/2025 8:30 AM EDT Office Visit [facility] [address] [place] [phone] Rae Truong, BOX TOE BUFFER [address] [place] [address] 04/29/2025 9:30 AM EDT Office Visit [facility] [address] [facility] [address] [place] [phone] Fauzia Sterling MD [address] [place] [address] Scheduled Orders Name Type Priority Associated Diagnoses Orde r Schedule Overnight Sleep Oximetry Study Respiratory Care Routine Chronic respiratory failure with hypoxia Expected: 02/10/2025, Expires: 02/05/2026 CT chest low dose wo Imaging Routine Tobacco abuse Expected: 01/01/2026, Expires: 05/08/2026 documented as of this encounter Goals Goal [...] Procedure Name Priority Date/Time Associated Diagnosis Comments PULMONARY FUNCTION TEST Routine 02/05/2025 9:20 AM EDT COPD with acute exacerbation SCANNED - PULMONARY RESULTS 02/05/2025 documented in this encounter Results * Spirometry with Diffusion Capacity & Lung Volumes (02/05/2025 9:20 AM EDT) Rae Truong APRN PFT ORDERABLES Final Result * Pulmonary Results Scan (02/05/2025) Rae Truong APRN PFT ORDERABLES Final Result documented in this encounter Visit Diagnoses Diagnosis Chronic obstructive pulmonary disease, unspecified COPD type- Primary COPD with acute exacerbation Tobacco abuse Tobacco use disorder Chronic respiratory failure with hypoxia documented in this encounter Additional Health Concerns Active Problems Noted Date Diagnosed Date Hypertension (Hypertension) 05/08/2024 Disease Progression (Hypertension) 05/08/2024 Resistant Hypertension (Hypertension) 05/08/2024 Infection Onset Date Last Indicated Resolved Time Other Comment:Parainfluenza 3 per RVP 01.01.2025 01/02/2025 01/02/2025 documented as of this encounter Care Teams Loan Inspector Relationship Specialty Start [place] [address] [place] [address] PCP - General Family Medicine 09/03/18 documented as of this encounter
[2025-02-12] VITALS (7 sets, daily range): BP systolic 103–127; BP diastolic 62–84; PULSE 59–73; RESP 15–16; TEMP 36.6–36.7; O2SAT 94–100; BMI 34.7
--- NOTE | 2025-02-12 16:52 | ED_ITS ---
Discharge Plan Disposition Patient Disposition: Home, Self-Care Condition: Good Prescriptions Prescriptions: No Action buspirone 5 MG tablet 5 mg PO BID omeprazole 40 capsule,delayed release(DR/EC) 40 mg PO DAILY warfarin [Coumadin] 10 MG tablet 10 mg PO SUMOWE lisinopril-hydrochlorothiazide 1 EACH tablet 1 tab PO DAILY Rx Instructions: 20/12.5mg aspirin 81 MG tablet,chewable 81 mg PO DAILY carvedilol 25 mg tablet 25 mg PO DAILY Patient Comments: TAKE 1 TABLET BY MOUTH TWICE DAILY WITH MEALS atorvastatin 20 mg tablet 20 mg PO DAILY cetirizine 10 mg tablet 10 mg PO DAILY potassium chloride 20 mEq tablet,ER particles/crystals 20 meq PO DAILY albuterol sulfate [Ventolin HFA] 90 mcg/actuation HFA aerosol inhaler 2 puff INHALATION Q4HP PRN (Reason: Shortness Of Breath) escitalopram oxalate 20 mg tablet 20 mg PO DAILY amlodipine 10 mg tablet 10 mg PO DAILY warfarin 5 mg tablet 5 mg PO TUTHSA buprenorphine-naloxone 8-2 mg tablet, sublingual 1 tab SUBLINGUAL DAILY Referrals Follow up/Referrals: Provider,Referral, MD [Primary Care Provider, Medical] - See instructions Activity Restrictions/Add. Instructions Additional Instructions/Restrictions: As we discussed if you have persistent new or worsening signs or symptoms follow-up with your PCP return to the ER as needed. Clinical Impressions Clinical Impression: Chest pain Print Language Print Language: Ukrainian Discharge ED Provider: Nabor Stewart HPI <CYNTHIA Patel - Last Filed: 02/12/25 20:42> General Chief Complaint: Chest Pain Stated Complaint: chest pain Time Seen by Provider: 02/12/25 16:52 History of Present Illness HPI narrative: Patient presents for evaluation of chest pain. Patient states he began having chest pain that he described as on both sides of his chest around 11:00 this morning while he was watching TV in bed. He states that it lasted for only a couple of minutes however its recurred several times throughout the day. Last time was just prior to arrival in the emergency department he denies any shortness of breath fever chills hemoptysis hematochezia melena nausea vomiting diarrhea. Patient has a history of hypertension hyperlipidemia GERD and history of DVT currently maintained on warfarin. Related Data Home Medications ?Medication ?Instructions ?Recorded ?Confirmed warfarin 10 mg tablet (Coumadin) 10 mg PO SUMOWEFR 11/17/24 aspirin 81 mg chewable tablet 81 mg PO DAILY heart 11/16/24 lisinopril 20 1 tab PO DAILY 04/12/1810/22 mg-hydrochlorothiazide 12.5 mg tablet Held on 11/17/24. Instructions: Resume on 12/01/24. Please hold this medication until you follow-up with your PCP. buspirone 5 mg tablet 5 mg PO BID Anxiety 09/28/18 11/17/24 omeprazole 40 mg capsule,delayed 40 mg PO DAILY 11/16/24 release albuterol sulfate 90 mcg/actuation 2 puff inhalation Q 4HP PRN 11/16/24 11/17/24 aerosol inhaler (Ventolin HFA) Shortness Of Breath atorvastatin 20 mg tablet 20 mg PO DAILY 11/16/2410/22 carvedilol 25 mg tablet 25 mg PO DAILY 11/16/2410/22 cetirizine 10 mg tablet 10 mg PO DAILY 11/16/2410/22 escitalopram oxalate 20 mg tablet 20 mg PO DAILY 11/1611/16/24 potassium chloride 20 mEq 20 meq PO DAILY 11/16/24 tablet,extended release(part/cryst) amlodipine 10 mg tablet 10 mg PO DAILY 11/17/2410/22 buprenorphine 8 mg-naloxone 2 mg 1 tab sublingual AZAR Y 11/17/24 11/17/24 sublingual tablet warfarin 5 mg tablet 5 mg PO TUTHSA 11/17/2410/22 Allergies Allergy/AdvReac Type Severity Reaction Status Date / Time cefdinir Allergy Cramping Verified 11/16/24 18:58 of the Muscles Penicillins Allergy Other Verified 11/16/24 18:58 [facility] <CYNTHIA Patel - Last Filed: 02/12/25 20:42> [facility] Disclaimer: The information contained in this section may have been updated after the patient was seen, as this information can be updated by other users. Medical History (Updated 02/12/25 @ 20:43 by CYNTHIA Patel) Chest pain Sweating Patient left without being seen Arrhythmia Left thigh pain Left thigh pain Headache Hypokalemia Palpitation Atypical chest pain Leg pain, left Chest pain Benign paroxysmal positional vertigo Hypertension Deep vein thrombosis (DVT) Surgical History H/O foot surgery Family History Other Family history of cancer Social History Smoking Status: Current every day smoker tobacco type: cigarettes packs per day: 2 second hand exposure: Yes alcohol intake: never current occupational status: employed Travel in the last 8 weeks?: None housing: house caffeine: Yes Have you lived/traveled outside [place] in past 30 days?: No Contact w/someone who lives/traveled outside US past 30 days?: No Exposure to someone with infectious disease in past 14 days?: No Do you have a fever (greater than 100.4 F or 38 C)?: No Have you tested positive for COVID-19?: No Exposed to someone with COVID-19 in past 14 days?: No Do you have a sore throat?: No Do you have a cough?: No Do you have any weakness?: No Do you have any diarrhea?: No Are you experiencing any unusual bleeding?: No Do you have any muscle aches/pain?: No Do you have any abdominal pain?: No Are you experiencing loss of taste or smell?: No Other Medical History Have you received the Flu Vaccine for this season: No Have you received the Pneumonia Vaccine: No <CYNTHIA Patel - Last Filed: 02/12/25 20:42> ROS Obtained: Yes Systems reviewed as appropriate & no additional complaints except as documented Physical Exam <CYNTHIA Patel Last Filed: 02/12/25 20:42> General General appearance: alert and in no apparent distress Respiratory Respiratory exam: Present normal lung sounds bilaterally Cardiovascular Cardiovascular exam: Present regular rate Neurological Exam Neurological exam: Present alert and oriented X3 HEART Score <CYNTHIA Patel Last Filed: 02/12/25 20:42> HEART Score HEART Score assessment performed?: Yes History (anamnesis): Slightly suspicious ECG: Normal Age: 45-65 years Risk factors: 3 or more risk factors Troponin: </= normal limit HEART Score: 3 <Nabor Stewart DO - Last Filed: 02/13/25 03:46> HEART Score HEART Score: 3 Critical Care <CYNTHIA Patel - Last Filed: 02/12/25 20:42> Critical Care Time Critical Care Time: No Medical Decision Making <CYNTHIA aPtel - Last Filed: 02/12/25 20:42> Medical Records Medical records reviewed: Yes I reviewed the patient's medical records. Mack Inquiry Pt receiving controlled substance: No Vital Signs Vital Signs: 02/12/25 17:09 02/12/25 18:00 02/12/25 18:30 Temperature 98.1 F Temperature Source Oral Pulse Rate 59 L 62 Pulse Rate [Right Radial] 64 Respiratory Rate 15 Blood Pressure 103/62 L 106/62 L Blood Pressure [Right Arm] 118/71 Blood Pressure Mean [Right Arm] 86 Blood Pressure Source Blood Pressure Source [Right Arm] Automatic Cuff Blood Pressure Position Blood Pressure Position [Right Arm] Sitting 02 Sat by Pulse Oximetry 97 96 94 L Oxygen Delivery Method Room Air 02/12/25 19:11 02/12/25 19:30 02/12/25 20:00 Temperature Temperature Source Pulse Rate 67 65 73 Pulse Rate [Right Radial] Respiratory Rate Blood Pressure 108/70 L 127/84 120/76 Blood Pressure [Right Arm] Blood Pressure Mean [Right Arm] Blood Pressure Source Blood Pressure Source [Right Arm] Blood Pressure Position Blood Pressure Position [Right Arm] 02 Sat by Pulse Oximetry 95 95 100 Oxygen Delivery Method 02/12/25 20:44 Temperature 97.9 F Temperature Source Oral Pulse Rate 72 Pulse Rate [Right Radial] Respiratory Rate 16 Blood Pressure 108/70 L Blood Pressure [Right Arm] Blood Pressure Mean [Right Arm] Blood Pressure Source Automatic Cuff Blood Pressure Source [Right Arm] Blood Pressure Position Supine Blood Pressure Position [Right Arm] 02 Sat by Pulse Oximetry Oxygen Delivery Method Room Air Lab Data Lab results reviewed: Yes I reviewed the patient's lab results. Labs: Lab Results 02/12/25 17:01: WBC 7.0, RBC 4.18 L, Hgb 13.0 L, Hct 35.6 L, MCV 85.2, MCH 31.1, MCHC 36.5 H, RDW 12.7, Plt Count 174, MPV 9.4, Neut % (Auto) 55.4, Lymph % (Auto) 30.4, Crisp % (Auto) 9.5 H, Eos % (Auto) 3.4, Baso % (Auto) 1.0, Neut # (Auto) 3.9, Lymph # (Auto) 2.1, Crisp # (Auto) 0.7, Eos # (Auto) 0.2, Baso # (Auto) 0.1, D-Dimer 0.32, Sodium 136, Potassium 4.0, Chloride 99, Carbon Dioxide 30, Anion Gap 11.0, BUN 13, Creatinine 0.90, Estimated Creat Clear 132, Estimated GFR 86, Est GFR ( Amer) 104, Glucose 136 H, Calcium 9.1, Total Bilirubin 0.5, AST 32, ALT 21, Alkaline Phosphatase 100, Troponin I < 0.01, N T-Pro-B Natriuret Pep 468 H, Total Protein 6.4, Albumin 4.1, Globulin 2.3, Albumin/Globulin Ratio 1.8, TSH 1.42, Free T4 Index 2.5 L, Thyroxine (T4) 7.9, T3 Uptake 32 02/12/25 18:05: PT 29.2 H, INR 2.84 H 02/12/25 20:00: Troponin I < 0.01 02/12/25 17:01 02/12/25 17:01 Response Orders (Tests/Meds): ED MEDICATIONS Discontinued Medications Generic Name Dose Route Start Last Admin Trade Name Sachinq PRN Reason Stop Dose Admin Acetaminophen 1,000 mg 02/12/25 17:01 02/12/25 17:27 Acetaminophen 500mg Tab PO 02/12/25 17:02 1,000 mg ONCE ONE Administration Belladonna Alkaloids 60 ml 02/12/25 17:01 02/12/25 17:27 Belladonna Alkaloids 60 Ml Ml PO 02/12/25 17:02 60 ml ONCE ONE Administration Sodium Chloride 1,000 mls @ 999 mls/hr 02/12/25 17:01 02/12/25 17:27 Sod Chlor 0.9% 1000ml Bag IV 02/12/25 18:01 999 mls/hr .Q1H1M ONE Administration Ketorolac Tromethamine 15 mg 02/12/25 17:01 02/12/25 17:28 Ketorolac 30mg/Ml Vial IV 02/12/25 17:02 15 mg ONCE ONE Administration Ondansetron HCl 4 mg 02/12/25 17:01 02/12/25 17:27 Ondansetron 4mg/2ml Vial IV 02/12/25 17:02 4 mg ONCE ONE Administration ORDERS Category Date Time Status Chest XR 2 view (NOT portable) [XR chest 2V] Stat Exams 02/12/25 17:02 Completed BNP [NT Pro Brain Natriuretic Pep.] Stat Lab 02/12/25 17:01 Completed CBC w/Auto Diff [Complete Blood Count Auto Diff] Stat Lab 02/12/25 17:01 Completed CMP [Comprehensive Metabolic Panel] Stat Lab 02/12/25 17:01 Completed D-Dimer Stat Lab 02/12/25 17:01 Completed PT INR [Prothrombin Time INR] Stat Lab 02/12/25 18:05 Completed Thyroid Panel Stat Lab 02/12/25 17:01 Completed Trop I [Troponin I] Stat Lab 02/12/25 17:01 Completed Troponin I Q3H Lab 02/12/25 20:00 Completed MDM Narrative Medical Decision Narrative: In summary patient is a 59-year-old male who presents to the emergency department for evaluation of bilateral intermittent chest pain that started at 11 AM this morning. Patient is currently hemodynamically stable with a blood pressure 118/71 heart rate 64 sinus rhythm on the bedside monitor breathing 15 times a minute satting at 97% on room air upon arrival, afebrile at 98.1. 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 Bowel sounds normal active.. Differential diagnosis includes ACS versus GERD versus esophagitis versus peptic ulcer disease etc. Initial workup will be conducted with hematologic labs twelve-lead EKG plain film chest x-ray. Initial interventions include crystalloid bolus Toradol Tylenol Zofran GI cocktail. Initial workup reviewed by me and his hematologic labs are nonactionable including an undetectable troponin his twelve-lead EKG did not show evidence of ACS and my informal interpretation of his x-ray showed no acute processes prior to radiology read. Please see final read for formal interpretation.. Given this the patient was placed in observation status at 1800 hrs. Medical necessity for observational status is serial troponins. The patient was provided serial reevaluations continuous cardiac monitoring and pulse oximetry while awaiting results. Second troponin was also undetectable. Given this patient is appropriate for discharge with follow-up as scheduled with his PCP and strict return precautions. Total time in observation was 2 hours and 45 minutes. <Nabor Josephony, DO - Last Filed: 02/13/25 03:46> Vital Signs Vital Signs: 02/12/25 17:09 02/12/25 18:00 02/12/25 18:30 Temperature 98.1 F Temperature Source Oral Pulse Rate 59 L 62 Pulse Rate [Right Radial] 64 Respiratory Rate 15 Blood Pressure 103/62 L 106/62 L Blood Pressure [Right Arm] 118/71 Blood Pressure Mean [Right Arm] 86 Blood Pressure Source Blood Pressure Source [Right Arm] Automatic Cuff Blood Pressure Position Blood Pressure Position [Right Arm] Sitting 02 Sat by Pulse Oximetry 97 96 94 L Oxygen Delivery Method Room Air 02/12/25 19:11 02/12/25 19:30 02/12/25 20:00 Temperature Temperature Source Pulse Rate 67 65 73 Pulse Rate [Right Radial] Respiratory Rate Blood Pressure 108/70 L 127/84 120/76 Blood Pressure [Right Arm] Blood Pressure Mean [Right Arm] Blood Pressure Source Blood Pressure Source [Right Arm] Blood Pressure Position Blood Pressure Position [Right Arm] 02 Sat by Pulse Oximetry 95 95 100 Oxygen Delivery Method 02/12/25 20:44 Temperature 97.9 F Temperature Source Oral Pulse Rate 72 Pulse Rate [Right Radial] Respiratory Rate 16 Blood Pressure 108/70 L Blood Pressure [Right Arm] Blood Pressure Mean [Right Arm] Blood Pressure Source Automatic Cuff Blood Pressure Source [Right Arm] Blood Pressure Position Supine Blood Pressure Position [Right Arm] 02 Sat by Pulse Oximetry Oxygen Delivery Method Room Air Lab Data Labs: Lab Results 02/12/25 17:01: WBC 7.0, RBC 4.18 L, Hgb 13.0 L, Hct 35.6 L, MCV 85.2, MCH 31.1, MCHC 36.5 H, RDW 12.7, Plt Count 174, MPV 9.4, Neut % (Auto) 55.4, Lymph % (Auto) 30.4, Crisp % (Auto) 9.5 H, Eos % (Auto) 3.4, Baso % (Auto) 1.0, Neut # (Auto) 3.9, Lymph # (Auto) 2.1, Crisp # (Auto) 0.7, Eos # (Auto) 0.2, Baso # (Auto) 0.1, D-Dimer 0.32, Sodium 136, Potassium 4.0, Chloride 99, Carbon Dioxide 30, Anion Gap 11.0, BUN 13, Creatinine 0.90, Estimated Creat Clear 132, Estimated GFR 86, Est GFR ( Amer) 104, Glucose 136 H, Calcium 9.1, Total Bilirubin 0.5, AST 32, ALT 21, Alkaline Phosphatase 100, Troponin I < 0.01, N T-Pro-B Natriuret Pep 468 H, Total Protein 6.4, Albumin 4.1, Globulin 2.3, Albumin/Globulin Ratio 1.8, TSH 1.42, Free T4 Index 2.5 L, Thyroxine (T4) 7.9, T3 Uptake 32 02/12/25 18:05: PT 29.2 H, INR 2.84 H 02/12/25 20:00: Troponin I < 0.01 Response Orders (Tests/Meds): ED MEDICATIONS Discontinued Medications Generic Name Dose Route Start Last Admin Trade Name Freq PRN Reason Stop Dose Admin Acetaminophen 1,000 mg 02/12/25 17:01 02/12/25 17:27 Acetaminophen 500mg Tab PO 02/12/25 17:02 1,000 mg ONCE ONE Administration Belladonna Alkaloids 60 ml 02/12/25 17:01 02/12/25 17:27 Belladonna Alkaloids 60 Ml Ml PO 02/12/25 17:02 60 ml ONCE ONE Administration Sodium Chloride 1,000 mls @ 999 mls/hr 02/12/25 17:01 02/12/25 17:27 Sod Chlor 0.9% 1000ml Bag IV 02/12/25 18:01 999 mls/hr .Q1H1M ONE Administration Ketorolac Tromethamine 15 mg 02/12/25 17:01 02/12/25 17:28 Ketorolac 30mg/Ml Vial IV 02/12/25 17:02 15 mg ONCE ONE Administration Ondansetron HCl 4 mg 02/12/25 17:01 02/12/25 17:27 Ondansetron 4mg/2ml Vial IV 02/12/25 17:02 4 mg ONCE ONE Administration ORDERS Category Date Time Status Chest XR 2 view (NOT portable) [XR chest 2V] Stat Exams 02/12/25 17:02 Completed BNP [NT Pro Brain Natriuretic Pep.] Stat Lab 02/12/25 17:01 Completed CBC w/Auto Diff [Complete Blood Count Auto Diff] Stat Lab 02/12/25 17:01 Completed CMP [Comprehensive Metabolic Panel] Stat Lab 02/12/25 17:01 Completed D-Dimer Stat Lab 02/12/25 17:01 Completed PT INR [Prothrombin Time INR] Stat Lab 02/12/25 18:05 Completed Thyroid Panel Stat Lab 02/12/25 17:01 Completed Trop I [Troponin I] Stat Lab 02/12/25 17:01 Completed Troponin I Q3H Lab 02/12/25 20:00 Completed ECG Data Tracing #1: Attestation: I reviewed this ECG and interpreted as documented below: ECG Narrative: EKG personally interpreted by me demonstrates normal sinus rhythm with a rate of 62 bpm, normal axis, CT prolongation of 228 ms consistent with first-degree AV block, narrow QRS, no QT prolongation. No ST elevation or depression. No overt signs of ischemia or arrhythmia. MDM Narrative Medical Decision Narrative: In summary patient is a 59-year-old male who presents to the emergency department for evaluation of bilateral intermittent chest pain that started at 11 AM this morning. Patient is currently hemodynamically stable with a blood pressure 118/71 heart rate 64 sinus rhythm on the bedside monitor breathing 15 times a minute satting at 97% on room air upon arrival, afebrile at 98.1. 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 Bowel sounds normal active.. Differential diagnosis includes ACS versus GERD versus esophagitis versus peptic ulcer disease etc. Initial workup will be conducted with hematologic labs twelve-lead EKG plain film chest x-ray. Initial interventions include crystalloid bolus Toradol Tylenol Zofran GI cocktail. Initial workup reviewed by me and his hematologic labs are nonactionable including an undetectable troponin his twelve-lead EKG did not show evidence of ACS and my informal interpretation of his x-ray showed no acute processes prior to radiology read. Please see final read for formal interpretation.. Given this the patient was placed in observation status at 1800 hrs. Medical necessity for observational status is serial troponins. The patient was provided serial reevaluations continuous cardiac monitoring and pulse oximetry while awaiting results. Second troponin was also undetectable. Given this patient is appropriate for discharge with follow-up as scheduled with his PCP and strict return precautions. Total time in observation was 2 hours and 45 minutes. I was consulted by the [facility], and we discussed the complexity of problems being addressed. I approved the treatment and management plan for this patient's care in the emergency department, thus performing a substantive portion of the medical decision making. Nabor Stewart DO -- Patient independentely evaluated by me. He tells me he started having central chest pain prior to arrival. He has a history of GERD and the last time he developed these symptoms he was diagnosed with acid reflux. His pain is nonexertional and nonradiating in nature. He took aspirin prior to arrival with minimal improvement in symptoms. He does have a history of DVT's for which he is on warfarin with an INR goal of 2-3. He has not had any extremity edema or erythema. No dyspnea. No cough, fevers, or production of phlegm. He is not experiencing abdominal pain. Workup included hematologic labs, for which d-dimer and serial troponins were negative. He was placed in ED observation to obtain these serial troponins. CXR was personally intepreted and was without acute abnormality. Patient achieved symptomatic control with toradol, Zofran, Tylenol, and GI cocktail. Pain felt to be gastrointestinal in origin as opposed to pulmonary/cardiac in origin. All questions were answered and all parties were agreeable with the decision to discharge home.
--- NOTE | 2025-02-12 16:54 | ECG_ITS ---
APPROVED REPORT Exam: Resting ECG HR:62 bpm ECG Measurements Heart Rate 62 AXES WI 228 P 28 QRSd 85 QRS 16 QT 405 T 20 QTc 409 Conclusion SINUS RHYTHM WITH FIRST DEGREE AV BLOCK LOW QRS VOLTAGE IN PRECORDIAL LEADS [QRS DEFLECTION < 1.0 mV IN CHEST LEADS] ABNORMAL ECG UNCONFIRMED REPORT Electronically signed by : ELISEO GOODWIN, 02/13/2025 01:00:41
--- OUTSIDE RECORDS SUMMARY | 2025-02-12 16:57 | XMS_ITS ---
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
--- OUTSIDE RECORDS SUMMARY | 2025-02-12 16:57 | XMS_ITS | Clinical Summary ---
Author Organization [facility] Address [address] [place] [address] Care Team Providers Care Client Engagement Specialist Name Role Phone Fauzia Sterling MD Primary Care Provider [phone] Allergies Active Allergy Reactions Criticality Noted Date Comments Cefdinir Other - please docum ent in the comment field Low 05/11/2018 C. Diff colitis Penicillins Dizziness,Unknown - Patient states they do not know rxn details Low 12/31/2011 Medications busPIRone (Buspar) 5 MG tablet Take 5 mg by mouth 2 (two) times a day. 07/19/20 21 Active Aspirin Buf,CaCarb-MgC arb-MgO, 81 MG tablet 01/30/20 18 Active lisinopril-hyd roCHLOROthiazi de 20-12.5 MG tablet Take 2 tablets by mouth 1 (one) time each day. 12/09/19 22 Active warfarin (Coumadin) 5 MG tablet TAKE 1 TO 2 TABLETS BY MOUTH ONCE DAILY OR DIRECTED BY ANTICOAGULATION CLINIC. 06/14/20 21 Active warfarin (Coumadin) 10 MG tablet TAKE 1 TABLET BY MOUTH ONCE DAILY OR DIRECTED BY THE ANTICOAGULATION CLINIC. TAKE ON DIFFERENT DAYS THAN 5 MG TABLET. 10/11/19 22 Active metoprolol tartrate (Lopressor) 50 MG tablet Take 50 mg by mouth 1 (one) time each day. 02/20/20 21 Active escitalopram (Lexapro) 20 MG tablet Take 10 mg by mouth 1 (one) time each day. 01/11/20 22 Active omeprazole (PriLOSEC) [address] capsule Take 40 mg by mouth 1 (one) time each day. 12/15/19 Active potassium chloride CR (Klor-Con M20) 20 MEQ ER tablet Take 20 mEq by mouth 1 (one) time each day. Do not crush or chew. Active Active Problems No known active problems Family History Medical History Relation Name Comments Kidney cancer Father Leukemia Father Kidney cancer Other Relation Name Status Comments Father Other Social History Tobacco Use Types Packs/Day Years Used Date Smoking Tobacco: Every Day Smokeless Tobacco: Never Tobacco Cessation:Ready to Q uit: No Comments:Smokes 1 pack of cigarettes per day Alcohol Use Standard Drinks/Week Comments No 0 (1 standard drink = 0.6 oz pur e alcohol) Sex and Gender Information Value Date Recorded Sex Assigned at Not on file Legal Sex Male 7:58 PM EDT Gender Identity Not on file Sexual Orientation Not on file Last Filed Vital Signs Vital Sign Reading Time Taken Comments Blood Pressure 112/72 02/01/2022 9:22 AM EDT Pulse 70 02/01/2022 9:22 AM EDT Temperature 36.7 C (98 F) 01/29/2018 7:40 AM EDT Respiratory Rate - - Oxygen Saturation - - Inhaled Oxygen Concentration - - Weight 120 kg (264 lb 8.8 oz) 02/01/2022 9:22 AM EDT Height 177.8 cm (5' 10 ) 02/01/2022 9:22 AM EDT Body Mass Index 37.96 02/01/2022 9:22 AM EDT Plan of Treatment Health Maintenance Due Date Last Done Comments [facility]-Depression Screening 1965 [facility]-HIV Screening 1965 [facility]-/Child/Adol SDOH Screenings 1965 [facility]-Obesity Intervention 1970 [facility]- SDOH Screenings 1982 [facility]-Adult SDOH Screenings 1982 [facility]-DTaP,Tdap,and Td Vaccines (1 - Tdap) 12/25/1983 CT Colonography 2009 Colonoscopy 2009 FIT-DNA 2009 FIT 2009 FOBT 2009 Sigmoidoscopy 2009 [facility]-Colorectal Cancer Screening 2009 [facility]-Pneumococcal Vaccine: 50+ Years (1 of 1 - PCV) 2014 [facility]-Zoster Vaccines (1 of 2) 2014 DCM-QFTDO-75 Vaccine (2 - season) 2024 03/10/2021 [facility]-Influenza Vaccine (#1) 03/23/202505/26, 04/28/2019, 05/15/2018, Additional history exists [facility]-RSV Vaccine: 60+ Years or (1 - 1-dose 75+ series) 12/25/2039 [facility]-Hepatitis C Screening Completed 01/29/2018 [facility]-Diabetes: Hemoglobin A1C Discontinued 11/07/2021, 07/27/2020, 02/12/2020, Additional history exists HPV Vaccines Aged Out No longer eligi ble based on patient's age to complete this topic [facility]-HIB Vaccines Aged Out No longer e ligible based on patient's age to complete this topic [facility]-Hepatitis A Vaccines Aged Out No longer eligible based on patient's age to complete this topic [facility]-IPV Vaccines Aged Out No longer e ligible based on patient's age to complete this topic [facility]-Rotavirus Vaccines Aged Out No lo nger eligible based on patient's age to complete this topic Procedures Procedure Name Priority Date/Time Associated Diagnosis Comments HEPATITIS C ANTIBODY W/REFLEX TO HCV QUANT PCR Routine 01/29/2018 8:54 AM EDT from Last 3 Months or Most Recently Relevant to Health Maintenance Results * Hepatitis C Antibody (01/29/2018 8:54 AM EDT) Hepatitis C Antibody NEGATIVE Reference Range: Negative SUNQUEST 01/29/2018 8:54 AM EDT 01/29/2018 11:18 AM EDT us Chichi Huerta [facility] BLOOD ORDERABLES Final Res ult SUNQUEST from Last 3 Months or Most Recently Relevant to Health Maintenance [facility] [place] [address] [facility] [employer] Care Teams Client Engagement Specialist Relationship Specialty [place] [address] [place] [address] PCP - General 12/03/20
--- OUTSIDE RECORDS SUMMARY | 2025-02-12 16:57 | XMS_ITS | Encounter Summary ---
[facility] Address [address] [place] [address] Care Team Providers Care M48 M60 Armor Crewman Name Role Phone Fauzia Sterling MD Primary Care Provider [phone] Encounter Details Date Type Department Care Team (Latest Contact Info) Description 02/05/2025 Travel Social History Tobacco Use Types Packs/Day Years Used Date Smoking Tobacco: Every Day Cigarettes 1 35 Passive Smoke Exposure: Current Smokeless Tobacco: Never Comments:Smoking 1-1 1/2 pac k a day Alcohol Use Standard Drinks/Week Comments No 0 (1 standard drink = 0.6 oz pur e alcohol) [facility] Utilities Answer Date Recorded In the past 12 months has [employer], gas, oil, or water [employer] threatened to shut off services in your [...] any time in the past 12 m onths, were you homeless or living in a [...] Description 03/12/2025 8:30 AM EDT Office Visit [facility] PULMONARY & CRITICAL CARE MEDICINE [address] [place] [phone] Rae Truong, HUMAN RESOURCE MANAGEMENT INSTRUCTOR [address] [place] [address] 04/29/2025 9:30 AM EDT Office Visit [facility] [address] [place] [phone] Fauzia Sterling MD [address] [place] [address] documented as of this encounter Goals Goal [...] documented as of this encounter Visit Diagnoses Not on filedocumented in this encounter Additional Health Concerns Active Problems Noted Date Diagnosed Date Hypertension (Hypertension) 05/08/2024 Disease Progression (Hypertension) 05/08/2024 Resistant Hypertension (Hypertension) 05/08/2024 Infection Onset Date Last Indicated Resolved Time Other Comment:Parainfluenza 3 per RVP 01.01.2025 01/02/2025 01/02/2025 documented as of this encounter Care Teams M48 M60 Armor Crewman Relationship Specialty [place] [address] [place] [address] PCP - General Family Medicine 09/03/18 documented as of this encounter
--- OUTSIDE RECORDS SUMMARY | 2025-02-12 16:57 | XMS_ITS | Encounter Summary ---
[facility] Address [address] [place] [address] Care Team Providers Care Wrapper Stemmer Hand Name Role Phone Fauzia Sterling MD Primary Care Provider [phone] Reason for Visit * Reason Comments Med Refill Encounter Details Date Type Department Care Team (Late st Contact Info) Description 09/25/2023 Refill [facility] [address] [facility] [address] [place] [phone] Fauzia Sterling MD 1099 [facility] [address] [place] [phone] Anticoagulant long-term use Social History Tobacco Use Types Packs/Day Years Used Date Smoking Tobacco: Every Day Cigarettes 1 35 Passive Smoke Exposure: Current Smokeless Tobacco: Never Comments:Smoking 1-1 1/2 pac k a day Alcohol Use Standard Drinks/Week Comments No 0 (1 standard drink = 0.6 oz pur e alcohol) PHQ-2 Answer Date Recorded Retired PHQ-9: Brief Depression Severity Measure Score 0 04/03/2023 Abuse Screen Answer Date Recorded Unsafe at Home or Work/School Not on file Feels Threatened by Someone? Not on file 04/2023 Does Anyone Keep You from Co ntacting Others or Doint Things Outside the Home? Not on file 07/01/2023 Physical Sign of Abuse Present Not on file 1 09/01/2022 Housing Stability Answer Date Recorded Current Living Arrangements Not on file 03/2023 Potentially Unsafe Housing Conditions Not on fawn e 04/30/2023 PHQ-2 Answer Date Recorded Retired PHQ-9: Brief Depression Severity Measure Score 0 08/14/2023 Sex and Gender Information Value Date Recorded Sex Assigned at Not on file Legal Sex Male 12:07 PM EDT Gender Identity Not on file Sexual Orientation Not on file documented as of this encounter Miscellaneous Notes * Telephone Encounter - Myrtle Ortiz MA - 09/25/2023 9:42 AM EST Rx Refill Note Requested Prescriptions Pending Prescriptions Disp Refills warfarin (COUMADIN) 10 MG tablet [Pharmacy Med Name: Warfarin Sodium 10 MG Oral Tablet] 30 tablet 0 Sig: TAKE 1 TABLET BY MOUTH ONCE DAILY OR DIRECTED BY ANTICOAGULATION CLINIC. TAKE ON DIFFERENT DAYS THAN 5 MG. DUE FOR REPEAT INR Last office visit with prescribing clinician: 08/14/2023 Next office visit with prescribing clinician: Visit date not found Myrtle Ortiz MA 09/25/23, 09:42 EST Last fill: 08/28/2023 Last INR: 09/24/2023-33.1 documented in this encounter Plan of Treatment Upcoming Encounters Date Type Department Care Team (Late st Contact Info) Description 03/12/2025 8:30 AM EDT Office Visit [facility] PULMONARY & CRITICAL CARE MEDICINE [address] [place] [address] Rae Truong, NURSES' ASSOCIATION COUNSELOR [address] [place] [address] 04/29/2025 9:30 AM EDT Office Visit [facility] FAMILY MEDICINE [address] [phone] Fauzia Sterling MD [address] [address] documented as of this encounter Visit Diagnoses Diagnosis Anticoagulant long-term use Encounter for long-term (current) use of anticoagulants documented in this encounter Additional Health Concerns Infection Onset Date Last Indicated Resolved Time COVID (rule out) 12/30/2024 12/30/2024 12/30/2024 9:12 AM EDT Other Comment:Parainfluenza 3 per RVP 01.01.2025 01/02/2025 01/02/2025 documented as of this encounter Care Teams Wrapper Stemmer Hand Relationship Specialty [place] [address] [place] [address] PCP - General Family Medicine 09/03/18 documented as of this encounter
--- OUTSIDE RECORDS SUMMARY | 2025-02-12 16:57 | XMS_ITS | Encounter Summary ---
[facility] Address [address] [place] [address] Care Team Providers Care Huc Name Role Phone Fauzia Sterling MD Primary Care Provider [phone] Encounter Details Date Type Department Care Team (Latest Contact Info) Description 01/27/2025 Travel Social History Tobacco Use Types Packs/Day Years Used Date Smoking Tobacco: Every Day Cigarettes 1 35 Passive Smoke Exposure: Current Smokeless Tobacco: Never Comments:Smoking 1-1 1/2 pac k a day Alcohol Use Standard Drinks/Week Comments No 0 (1 standard drink = 0.6 oz pur e alcohol) [facility] Utilities Answer Date Recorded In the past 12 months has [employer], gas, oil, or water [employer] threatened to shut off services in your [...] were you homeless or living in a detention (including now)? No 11/18/2024 Abuse Screen Answer [...] Description 03/12/2025 8:30 AM EDT Office Visit [facility] PULMONARY & CRITICAL CARE MEDICINE [address] [place] [phone] Rae Truong, ONLINE PUBLISHER [address] [place] [address] 04/29/2025 9:30 AM EDT Office Visit [facility] FAMILY MEDICINE [address] [place] [phone] Fauzia Sterling MD [address] [place] [address] documented as of this encounter Goals Goal [...] documented as of this encounter Care Teams Huc Relationship Specialty [place] [address] [place] [address] PCP - General Family Medicine 09/03/18 documented as of this encounter
--- OUTSIDE RECORDS SUMMARY | 2025-02-12 16:57 | XMS_ITS | Encounter Summary ---
Author Organization [facility] Address [address] [place] [address] Care Team Providers Care Office 365 Consultant Name Role Phone Fauzia Sterling MD Primary Care Provider [phone] Reason for Visit * Reason Comments Med Refill Encounter Details Date Type Department Care Team (Late st Contact Info) Description 01/28/2025 Refill [facility] CARDIOLOGY [address] [phone] Fabiola Duong, TRACTOR TECHNICIAN [address] [place] [phone] Med Refill Social History Tobacco Use Types Packs/Day Years Used Date Smoking Tobacco: Every Day Cigarettes 1 35 Passive Smoke Exposure: Current Smokeless Tobacco: Never Comments:Smoking 1-1 1/2 pac k a day Alcohol Use Standard Drinks/Week Comments No 0 (1 standard drink = 0.6 oz pur e alcohol) [facility] Utilities Answer Date Recorded In the past 12 months has [employer], gas, oil, or water [place] threatened to shut off services in your [...] any time in the past 12 m [facility], were you homeless or living in a fpc (including now)? No 11/18/2024 Abuse Screen Answer [...] CENTER PULMONARY & CRITICAL CARE MEDICINE [address] [place] [address] Rae Truong, TRACTOR TECHNICIAN [address] [place] [address] 04/29/2025 9:30 AM EDT Office Visit [facility] FAMILY MEDICINE [address] [phone] Fauzia Sterling MD [address] [facility] [address] [place] [address] documented as of this encounter Goals Goal Patient Goal Type Associated Problems Recent Progress Patient-Stated? Author Track and Manage My Blood Pressure Patient Goals On track(2024 10:45 AM EST) Claudia Ward RN Note: - choose a place to [...] as of this encounter Visit Diagnoses Diagnosis Essential hypertension Unspecified essential hypertension documented in this encounter Additional Health Concerns Active Problems Noted Date Diagnosed Date Hypertension (Hypertension) 05/08/2024 Disease Progression (Hypertension) 05/08/2024 Resistant Hypertension (Hypertension) 05/08/2024 Infection Onset Date Last Indicated Resolved Time Other Comment:Parainfluenza 3 per RVP 01.01.2025 01/02/2025 01/02/2025 documented as of this encounter Care Teams Office 365 Consultant Relationship Specialty Start Date End Date Fauzia Sterling MD [address] [place] [address] PCP - General Family Medicine 09/03/18 documented as of this encounter
--- OUTSIDE RECORDS SUMMARY | 2025-02-12 16:57 | XMS_ITS | Encounter Summary ---
[facility] Address [address] [place] [address] Care Team Providers Care Operations Officer Afloat Name Role Phone Fauzia Sterling MD Primary Care Provider [phone] Encounter Details Date Type Department Care Team (Late st Contact Info) Description 01/09/2012 Conversion Encounter [facility] HISTORICAL CONV [address] [place] [address] Interface, See Report Social History Tobacco Use Types Packs/Day Years Used Date Smoking Tobacco: Never Assessed Sex and Gender Information Value Date Recorded Sex Assigned at Not on file Legal Sex Male 12:07 PM EDT Gender Identity Not on file Sexual Orientation Not on file documented as of this encounter H&P Notes * Interface, See Report - 01/09/2012 2:36 PM EDT Tito Gardiner M.D. ' Tyshawn Malave M.D. ' Johny Lozano M.D. ' SIMEON Jeter M.D. ' Verenice Dove M.D. ' Rae Clark APRN [address] [facility], [address] [place] [address] [employer] OFFICE NOTE ESVIN ROBERTSON : 1965 DATE OF VISIT: 01/09/2012 REASON FOR VISIT: Follow-up for left lower extremity DVT. HISTORY OF PRESENT ILLNESS: Mr. Robertson is a very pleasant 45-year-old gentleman with past medical history significant for recurrent left lower extremity DVT. The patient had extensive work-up done back in August that showed a mildly decreased antithrombin III level but everything else came back normal. His repeat venous Dopplers were normal. The patient was advised to stop Coumadin. The patient had been doing extremely well until two weeks ago. The patient started to complain of sudden onset of left lower extremity pain, mainly behind the knee. It was gradually getting worse. He presented to a local emergency room and had an ultrasound done that documented an acute DVT. The patient has been placed on Coumadin and Lovenox since and was referred to me for further evaluation and management. SUBJECTIVE: Mr. Robertson has been doing extremity well. His pain went away completely after starting Lovenox. He denied any fever or chills. No bleeding. No skin rashes. No edema or swelling anywhere in his body. REVIEW OF SYSTEMS: All the other nine systems are reviewed by me and negative except as mentioned in HPI. PAST MEDICAL HISTORY/SOCIAL HISTORY/FAMILY HISTORY: Unchanged from my prior documentation done March 28, 2011. MEDICATION LIST: Reviewed by me and documented in the patient's chart. ESVIN ROBERTSON : 1965 DATE OF VISIT: 01/09/2012 PHYSICAL EXAM: VITAL SIGNS: Temperature 97.4. Heart rate 64. Respiratory rate 16. Blood pressure is 120/75. GENERAL: Age appropriate. No acute distress. HEENT: Head atraumatic, normocephalic. NECK: Supple. No JVD. LUNGS: Clear to auscultation bilaterally. No wheezing. No rhonchi. HEART: S1 and S2. No murmurs. ABDOMEN: Soft. Nontender. Not distended. Bowel sounds positive. No hepatosplenomegaly. EXTREMITIES: No clubbing, cyanosis or cyanosis or edema. SKIN: No rashes or purpura. NEUROLOGIC: Awake and oriented x3. 5/5 strength in all muscle groups. ASSESSMENT: Mr. Robertson is a very pleasant 45 years of age gentleman with recurrent left lower extremity DVT. PROBLEM LIST: 1. Recurrent left lower extremity DVT. 2. 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 PLAN: 1. I had a long discussion today with Mr. Robertson about his recurrent episode of DVT. Unfortunately, this recurrent episode means anticoagulation for lifetime. I am suspecting his mildly decreased antithrombin III level is playing a major role in this and given the fact that this is the third episode the patient will need to stay on anticoagulation for lifetime. 2. I agree with Coumadin and bridging with Lovenox. The patient will stop Lovenox when his INR is therapeutic. I will target INR between 2 and 3. There is no benefit for higher INR levels. 3. The patient is not a candidate for IVC filter since he does not meet any of the major indications for IVC filter CHEST recommendations. 4. The patient was advised to be active, elevate his leg at rest, and wear compression stockings. 5. The patient will come back to see me in the future on an as needed basis. He will continue to follow up for with his primary care provider who will be monitoring his INR. ESVIN ROBERTSON : 1965 DATE OF VISIT: 01/09/2012 The plan was discussed in detail with Mr. Robertson. All of his questions were answered. Mr. Robertson feels comfortable with the above plan. Verenice Dove M.D.* FB/rxalw Doc. ID [id number] Rev. #0 cc: Dr. Rodriguez Page 3 of 3 Page 1 of 3 Authenticated by VERENICE DOVE MD On 01/10/2012 01:49:08 PM documented in this encounter Plan of Treatment Upcoming Encounters Date Type Department Care Team (Late st Contact Info) Description 03/12/2025 8:30 AM EDT Office Visit [facility] PULMONARY & CRITICAL CARE MEDICINE [address] [place] [phone] Rae Truong, ELECTRICAL WIRER [address] [place] [address] 04/29/2025 9:30 AM EDT Office Visit [facility] [address] [phone] Fauzia Sterling MD [address] [address] documented as of this encounter Visit Diagnoses Not on filedocumented in this encounter Additional Health Concerns Infection Onset Date Last Indicated Resolved Time COVID Screen (preop/placement) 02/09/2020 02/09/2020 02/10/2020 4:06 PM EDT COVID (rule out) 08/25/2020 08/25/2020 09/01/2020 9:08 PM EST COVID (rule out) 07/03/2023 07/03/2023 07/10/2023 9:08 PM EST COVID (rule out) 12/30/2024 12/30/2024 12/30/2024 9:12 AM EDT Other Comment:Parainfluenza 3 per RVP 01.01.2025 01/02/2025 01/02/2025 documented as of this encounter Care Teams Operations Officer Afloat Relationship Specialty Start Date End Date Fauzia Sterling MD [address] [address] PCP - General Family Medicine 09/03/18 documented as of this encounter
--- OUTSIDE RECORDS SUMMARY | 2025-02-12 16:57 | XMS_ITS | Encounter Summary ---
[facility] Address [address] [place] [address] Care Team Providers Care Assembly Department Supervisor Name Role Phone Fauzia Sterling MD Primary Care Provider [phone] Reason for Visit * Reason Onset Date Comments Med Refill 02/11/2025 Encounter Details Date Type Department Care Team (Late st Contact Info) Description 02/11/2025 Refill [facility] PULMONARY & CRITICAL CARE MEDICINE [address] [place] [address] Rae Truong, PUBLICATIONS SALES REPRESENTATIVE [address] [place] [phone] Social History Tobacco Use Types Packs/Day Years Used Date Smoking Tobacco: Every Day Cigarettes 1 35 Passive Smoke Exposure: Current Smokeless Tobacco: Never Comments:Smoking 1-1 1/2 pac k a day Alcohol Use Standard Drinks/Week Comments No 0 (1 standard drink = 0.6 oz pur e alcohol) [facility] Utilities Answer Date Recorded In the past 12 months has [employer], gas, oil, or water company threatened to [...] any time in the past 12 m [facility], were you homeless or living in a mcfp (including now)? No 11/18/2024 Abuse Screen Answer [...] encounter Miscellaneous Notes * Telephone Encounter - Courtney Oviedo MA - 02/11/2025 10:55 AM EDT Medication PA has been approved for [facility]. Approval will be scanned into pts chart. documented in this encounter Plan of Treatment Upcoming Encounters Date Type Department Care Team (Late st Contact Info) Description 03/12/2025 8:30 AM EDT Office Visit [facility] PULMONARY & CRITICAL CARE MEDICINE [address] [place] [address] Rae Truong, PUBLICATIONS SALES REPRESENTATIVE [address] [place] [address] 04/29/2025 9:30 AM EDT Office Visit [facility] FAMILY MEDICINE [address] [phone] Fauzia Sterling MD [address] [address] documented as of this encounter Goals Goal [...] Hypertension Monitored Care Plan Hypertension (Hypertension) Claudia Ward RN Note: Evidence-based guidance: Promote initial use [...] Maximized Care Plan Resistant Hypertension (Hypertension) Claudia Ward RN Note: Evidence-based guidance: Assess patient [...] documented as of this encounter Care Teams Assembly Department Supervisor Relationship Specialty Start Date End Date Atkins, Fauzia E., MD [address] [place] [address] PCP - General Family Medicine 09/03/18 documented as of this encounter
--- OUTSIDE RECORDS SUMMARY | 2025-02-12 16:57 | XMS_ITS | Clinical Summary ---
Author Organization [facility] Address [address] [place] [address] Care Team Providers Care Marketing Analyst Name Role Phone Fauzia Whyte MD Primary Care Provider [phone] Allergies Active Allergy Reactions Criticality Noted Date Comments Cefdinir Other (See Comments) 05/11/2018 C. Diff colitis Penicillins Dizziness 12/15/2015 Medications aspirin 81 MG tabletIndicatio ns:Tobacco abuse,Essential hypertension,Ch est pain on exertion Take 1 tablet by mouth Daily. 30 tablet 3 017 Active buprenorphine-n aloxone (SUBOXONE) 8-2 MG per SL tablet 1 tablet Daily. 019 Active acetaminophen (TYLENOL) 325 MG tablet Take 2 tablets by mouth Daily As Needed for Mild Pain. Active divalproex (DEPAKOTE) [address] tabletIndicatio ns:Chronic daily headache Take 1 tablet by mouth 2 (Two) Times a Day. 180 tablet 020 Active Needle, Disp, 18G X 1-2 miscIndications :Low testosterone in male Use for drawing up the medication 50 each 3 024 Active Needle, Disp, (Hypodermic Needle) 23G X 1 miscIndications :Low testosterone in male Use 1 Device As Needed (Injection of Testosterone). 50 each 11 024 Active escitalopram (LEXAPRO) 20 MG tabletIndicatio ns:Anxiety Take 1 tablet by mouth Daily. 90 tablet 3 024 Active ferrous sulfate 325 (65 FE) MG tablet Take 1 tablet by mouth Daily With Breakfast. Active hydrOXYzine pamoate (VISTARIL) 50 MG capsule Take 1 capsule by mouth 3 (Three) Times a Day As Needed for Anxiety for up to 20 doses. 20 capsule 024 Active warfarin (COUMADIN) 5 MG tabletIndicatio ns:Anticoagulan t long-term use TAKE 1 TO 2 TABLETS BY MOUTH ONCE DAILY DIRECTED BY ANTICOAGULATION CLINIC 90 tablet 024 Active cetirizine (zyrTEC) 10 MG tabletIndicatio ns:Seasonal allergic rhinitis due to pollen Take 1 tablet by mouth once daily 30 tablet 11 025 Active potassium chloride (KLOR-CON M20) 20 MEQ CR tabletIndicatio ns:Renovascular hypertension Take 1 tablet by mouth once daily 90 tablet 025 Active lisinopril-hydr ochlorothiazide (PRINZIDE,ZESTO RETIC) 20-12.5 MG per tabletIndicatio ns:Essential (primary) hypertension Take 2 tablets by mouth once daily 180 tablet 025 Active atorvastatin (LIPITOR) 20 MG tablet Take 1 tablet by mouth once daily 30 tablet 1 025 Active lactulose (CHRONULAC) 10 GM/15ML solutionIndicat ions:Constipati on, unspecified constipation type Take 30 mL by mouth 2 (Two) Times a Day As Needed (constipation). 473 mL 1 025 Active ipratropium-alb uterol (DUO-NEB) 0.5-2.5 mg/3 ml nebulizer Take 3 mL by nebulization Every 4 (Four) Hours As Needed for Wheezing. 360 mL 025 Active omeprazole (priLOSEC) 40 MG capsuleIndicati ons:Gastroesoph ageal reflux disease without esophagitis Take 1 capsule by mouth once daily 90 capsule 025 Active carvedilol (COREG) 25 MG tabletIndicatio ns:Essential hypertension TAKE 1 TABLET BY MOUTH TWICE DAILY WITH MEALS 60 tablet 025 Active warfarin (COUMADIN) 10 MG tabletIndicatio ns:Anticoagulan t long-term use TAKE 1 TABLET BY MOUTH ONCE DAILY OR DIRECTED BY ANTICOAGULATION CLINC. TAKE ON DIFFERENT DAYS THAN THE 5 MG. 30 tablet 025 Active Ventolin HFA 108 (90 Base) MCG/ACT inhalerIndicati ons:COPD with exacerbation INHALE 2 PUFFS BY MOUTH EVERY 4 HOURS NEEDED FOR WHEEZING 36 g 025 Active busPIRone (BUSPAR) 5 MG tabletIndicatio ns:Anxiety Take 1 tablet by mouth 2 (Two) Times a Day. 180 tablet 025 Active amLODIPine (NORVASC) 10 MG tabletIndicatio ns:Essential hypertension Take 1 tablet by mouth once daily 90 tablet 025 Active Fluticasone-Ume clidin-Vilant (Trelegy Ellipta) 100-62.5-25 MCG/ACT inhalerIndicati ons:Chronic obstructive pulmonary disease, unspecified COPD type Inhale 1 puff Daily. 60 each 1 025 Active busPIRone (BUSPAR) 5 MG tabletIndicatio ns:Anxiety Take 1 tablet by mouth twice daily 180 tablet 025 2024 Discontinued(R eorder) amLODIPine (NORVASC) 10 MG tabletIndicatio ns:Essential hypertension Take 1 tablet by mouth once daily 90 tablet 025 2024 Discontinued Ventolin HFA 108 (90 Base) MCG/ACT inhalerIndicati ons:COPD with exacerbation INHALE 2 PUFFS BY MOUTH EVERY 4 HOURS NEEDED FOR WHEEZING 36 g 025 2024 Discontinued warfarin (COUMADIN) 10 MG tabletIndicatio ns:Anticoagulan t long-term use TAKE 1 TABLET BY MOUTH ONCE DAILY OR DIRECTED BY ANTICOAGULATION CLINIC. TAKE ON DIFFERENT DAYS THAN 5 MG 30 tablet 025 2024 Discontinued Fluticasone-Ume clidin-Vilant (Trelegy Ellipta) 100-62.5-25 MCG/ACT inhalerIndicati ons:Chronic obstructive pulmonary disease, unspecified COPD type Inhale 1 puff Daily. 2 each 025 2024 Discontinued(R eorder) Fluticasone-Ume clidin-Vilant (Trelegy Ellipta) 100-62.5-25 MCG/ACT inhalerIndicati ons:Chronic obstructive pulmonary disease, unspecified COPD type Inhale 1 puff Daily. 2 each 3 025 2024 Discontinued(R eorder) doxycycline (VIBRAMYCIN) 100 MG capsuleIndicati ons:Left otitis media with effusion Take 1 capsule by mouth 2 (Two) Times a Day. 20 capsule 025 2024 Discontinued(* Therapy completed) Fluticasone-Ume clidin-Vilant (Trelegy Ellipta) 100-62.5-25 MCG/ACT inhalerIndicati ons:Chronic obstructive pulmonary disease, unspecified COPD type Inhale 1 puff Daily. 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 Advised to continue holding testosterone injections. Polycythemia likely worsened secondary to testosterone supplementation Will likely benefit from therapeutic phlebotomy Likely a contributing factor to uncontrolled blood pressure. Irregular sleep-wake rhythm, nonorganic origin 1 Dry eye 01/08/2024 Assessment & Plan (01/08/2024 11:17 AM EDT): He has tried [id number] drops and refresh eyedrops. Will give a trial of Restasis. Pain of left thumb 01/08/2024 Assessment & Plan (01/08/2024 11:18 AM EDT): Likely inflammatory process with pain and decreased range of motion. Giving anti-inflammatories in the form of Mobic for which she has taken in the past. Additionally referring to acute hand specialty for possible injection. Colon cancer screening 08/14/2023 Seasonal allergic rhinitis due to pollen 024 Flu-like symptoms 07/03/2023 Other fatigue 04/03/2023 COPD with exacerbation 04/03/2023 Polyarthritis 11/08/2022 Right hip pain 11/08/2022 Hyperhidrosis 11/07/2021 Night sweats 11/07/2021 Hypogonadism in male 11/07/2021 Assessment & Plan (05/08/2024 9:28 AM EDT): Followed by urology Advised to hold testosterone supplementation until he has followed up with urology and hematology BMI 38.0-38.9,adult 11/07/2021 Overview (11/07/2021): Patient's Body mass index is 39.17 kg/m . indicating that he is obese (BMI >30). Obesity-related health conditions include the following: hypertension. Obesity is unchanged. BMI is is above average; BMI management plan is completed. We discussed portion control and increasing exercise.. Assessment & Plan (07/03/2023 9:57 AM EST): Body mass index is 38.17 kg/m . Class 2 Severe Obesity (BMI >=35 and <=39.9). Obesity-related health conditions include the following: hypertension, coronary heart disease, diabetes mellitus, and dyslipidemias. Obesity is improving with treatment. BMI is is above average; BMI management plan is completed. We discussed portion control and increasing exercise. Pain of toe of right foot 09/12/2021 Left upper quadrant pain 09/05/2021 Heart palpitations 04/10/2021 Assessment & Plan (04/10/2021 3:41 PM EDT): New onset heart palpitations. Decrease caffeine intake. Smoking cessation. Referral to [facility] for further evaluation. Abnormal stress test 02/04/2020 Overview (02/04/2020): Added automatically from request for surgery [id number] Painful lumpy right breast 09/09/2019 Elevated glucose level 07/08/2019 Left flank pain 07/08/2019 Immunization due 04/28/2019 Nonintractable headache 03/18/2019 Gastroesophageal reflux disease without esophagi tis 03/18/2019 Facial flushing 11/04/2018 Assessment & Plan (11/04/2018 1:51 PM EDT): Restart lexapro 10 mg. He is likely having some withdrawal sx. Anxiety 09/18/2018 Assessment & Plan (05/08/2024 9:25 AM EDT): Patient reports compliance with Lexapro, though he has not been taking BuSpar. It has not been filled since 2020. Will send refill today. Suspect this could assist in controlling anxiety further. Assessment & Plan (10/05/2021 12:23 AM EDT): Take Wellbutrin as directed Call or go to ER if worsening depression or suicidal thoughts/ideations RTO or call PRN Acute gastritis without hemorrhage 09/03/2018 Hypokalemia 07/09/2018 Benign paroxysmal positional vertigo due to bilateral vestibular disorder 05/07/2017 Carpal tunnel syndrome on both sides 11/07/2016 Anticoagulant long-term use 10/23/2016 Precordial chest pain 10/12/2016 Tobacco abuse 10/04/2016 Assessment & Plan (05/08/2024 9:26 AM EDT): Discussed the importance of smoking cessation in regard to hypertension. Patient voices understanding, though has little interest at this time. Dizziness 10/04/2016 Nausea 10/04/2016 Chest pain on exertion 10/04/2016 Obesity due to excess calories 10/04/2016 Acute bronchitis 08/22/2016 Arthritis 08/22/2016 Reduced libido 08/22/2016 Chronic deep vein thrombosis of lower extremity 08/22/2016 Hematochezia 08/22/2016 Gastroenteritis 08/22/2016 Hematuria 08/22/2016 Essential hypertension 08/22/2016 Assessment & Plan (05/08/2024 9:26 AM EDT): Initial BP 170/100. Rechecked by myself at 168/98. Resistant hypertension. Feel this is multifactorial secondary to anxiety, smoking, polycythemia, obesity, etc. Will continue with current regimen. Patient has upcoming follow-up with cardiology to manage resistant hypertension in 5 days. Return precautions discussed at length ER precautions discussed extensively Assessment & Plan (05/08/2022 12:54 PM EDT): Hypertension is unchanged. Continue current treatment regimen. Weight loss. Regular aerobic exercise. Stop smoking. Continue current medications. Ambulatory blood pressure monitoring. Blood pressure will be reassessed at the next regular appointment. Assessment & Plan (04/10/2021 3:40 PM EDT): Hypertension is stable. Continue current treatment regimen. Dietary sodium restriction. Weight loss. Regular aerobic exercise. Stop smoking. Continue current medications. Ambulatory blood pressure monitoring. Blood pressure will be reassessed at the next regular appointment. Assessment & Plan (09/09/2019 8:48 AM EST): Hypertension is unchanged. Continue current treatment regimen. Stop smoking. Medication changes per orders. Blood pressure will be reassessed at the next regular appointment. Nocturia 08/22/2016 Left otitis media with effusion 08/22/2016 Plantar fasciitis 08/22/2016 Polyuria 08/22/2016 Hypovolemia 08/22/2016 Encounters Date Type Department Care Team Description 5 Refill [facility] PULMONARY & CRITICAL CARE MEDICINE [address] [place] [address] Rae Truong APRN 5 Telephone [facility] PULMONARY & CRITICAL CARE MEDICINE [address] [facility] [address] [place] [address] Rae Truong, SIMEON Prior Authorization 5 Refill [facility] PULMONARY & CRITICAL CARE MEDICINE [address] [place] [address] Rae Truong, SIMEON Chronic obstructive pulmonary disease, unspecified COPD type 5 9:30 AM EDT Office Visit [facility] PULMONARY & CRITICAL CARE MEDICINE [address] [place] [address] Rae Truong, INTERNATIONAL EDITORIAL PRODUCER Chronic obstructive pulmonary disease, unspecified COPD type (Primary Dx); COPD with acute exacerbation; Tobacco abuse; Chronic respiratory failure with hypoxia 5 Travel 5 Refill [facility] CARDIOLOGY [address] [facility] [address] [place] [phone] Rhoda Fabiolashonna Rock APRN Med Refill 5 9:30 AM EDT Office Visit [facility] FAMILY MEDICINE [address] [facility] [address] [place] [address] Fauzia Whyte MD Requires supplemental oxygen (Primary Dx); COPD with exacerbation; Tobacco abuse; Chronic obstructive pulmonary disease, unspecified COPD type; Left otitis media with effusion 5 Travel 5 Refill [facility] [address] [facility] [address] [place] [address] Fauzia Whyte MD Anxiety 5 Patient Outreach [facility] CASE [facility]NAGEMENT [facility] Ch[facility] RN Anxiety (Primary Dx); COPD with exacerbation; Essential hypertension 5 Refill [facility] FAMILY MEDICINE [address] [facility] [address] [place] [address] Fauzia Whyte MD COPD with exacerbation 5 Refill [facility] ANTICOAGULATION CLINIC [address] [facility] [address] [place] [phone] Macarena Chin PA-C Anticoagulant long-term use 5 Patient Outreach [facility] CASE MANAGEMENT [facility] Ch[facility]al RN Anxiety (Primary Dx); COPD with exacerbation; Essential hypertension 5 6:15 PM EDT - 5 7:38 PM EDT Emergency [facility] EMERGENCY DEPARTMENT [place] [address] [facility] [address] [place] [address] Vahid Joe, Marek Jacome, Numbness or tingling of left arm (Primary Dx) Discharge Disposition: Home or Self Care 5 Travel 5 Refill [facility] MED[facility] [address] [address] Fauzia Whyte MD Essential hypertension 5 9:30 AM EDT Office Visit [facility] [address] [place] [phone] Akbar Espinal DO Chronic obstructive pulmonary disease, unspecified COPD type (Primary Dx); Parainfluenza infection; Requires supplemental oxygen 5 Travel [address] [facility] [address] [place] [address] Fauzia Whyte MD Gastroesophageal reflux disease without esophagitis [address] [address] Fauzia Whyte MD Med Management 5 Patient Outreach [facility] CASE MANAGEMENT [place] Arlene Zapata RN Anxiety (Primary Dx); COPD with exacerbation; Essential hypertension 5 Results Follow-Up [address] [address] Fauzia Whyte MD 5 10:30 AM EDT Ancillary Procedure [address] [address] 5 10:00 AM EDT Office Visit [facility] [address] [place] [phone] Fauzia Whyte MD Hospital discharge follow-up (Primary Dx); Hypogonadism in male; Chronic deep vein thrombosis (DVT) of proximal vein of lower extremity, unspecified laterality; Anticoagulant long-term use; Essential hypertension; COPD with acute exacerbation; Tobacco abuse; Parainfluenza infection; Requires supplemental oxygen 5 Transitional Care Management Telephone Encounter [facility] NURSE [place] [facility] [address] [place] [phone] Derrick Parrish RN 5 Travel 5 Readmission Management [facility] NURSE CALL CENTER [address] [place] [address] Avril Hopkins RN 5 9:33 AM EDT - 5 1:34 PM EDT Hospital Encounter [facility] CLINCIAL DECISION UNIT [place] [address] [facility] [address] [place] [address] Vahid Joe DO Acute hypoxic respiratory failure (Primary Dx); Infection due to parainfluenza virus 3; COPD exacerbation; COPD with acute exacerbation; COPD with exacerbation Discharge Disposition: Home or Self Care 5 Travel 5 Anticoagulation Visit [facility] ANTICOAGULATION CLINIC [address] [facility] [address] [place] [phone] Angelica Valenzuela, Grinder 5 9:52 AM EDT - 5 11:10 AM EDT Emergency [facility] EMERGENCY DEPARTMENT [place] [phone] John Wilson MD COPD exacerbation (Primary Dx) Discharge Disposition: Home or Self Care 5 9:00 AM EDT Office Visit [facility] FAMILY MEDICINE [address] [place] [phone] Isatu Aviles DO Sore throat (Primary Dx); Screening for colon cancer; Fever, unspecified fever cause; Difficult or painful urination; COPD with exacerbation 5 Telephone [facility] FAMILY MEDICINE [address] [place] [phone] Fauzia Whyte MD New Med Request 5 Telephone [facility] FAMILY MEDICINE [address] [place] [phone] Fauzia Whyte MD Med Refill 5 Travel 5 Telephone [facility] FAMILY MEDICINE [address] [facility] [address] [place] [address] Fauzia Whyte MD Prior Authorization 5 Refill [facility] ANTICOAGULATION CLINIC [address] [facility] [address] [place] [phone] Fauzia Whyte MD Anticoagulant long-term use 5 Results Follow-Up [facility] FAMILY MEDICINE [address] [facility] [address] [place] [address] Macarena Chin PA-C 5 11:45 AM EDT Ancillary Procedure [facility] [address] [address] 5 11:00 AM EDT Office Visit [facility] [address] [facility] [address] [place] [address] Macarena Chin, CYNTHIA-C Constipation, unspecified constipation type (Primary Dx); Tobacco use 5 Travel 5 Refill [facility] CARDIOLOGY [address] [facility] [address] [place] [address] Fabiola Duong, INTERNATIONAL EDITORIAL PRODUCER Med Refill 5 Refill [facility] FAMILY MEDICINE [address] [facility] [address] [place] [address] Fauzia Whyte MD Essential hypertension 5 Refill [facility] FAMILY MEDICINE [address] [facility] [address] [place] [address] Fauzia Whyte MD COPD with exacerbation 5 Refill [facility] CARDIOLOGY [address] [facility] [address] [place] [address] Fabiola Duong, INTERNATIONAL EDITORIAL PRODUCER Med Refill 5 Refill [facility] ANTICOAGULATION CLINIC [address] [place] [address] [address] [place] [phone] Fauzia Whyte MD Anticoagulant long-term use 5 Results Follow-Up [facility] FAMILY MEDICINE [address] [facility] [address] [place] [address] Fauzia Whyte MD 5 Refill [facility] MEDICINE [address] [address] Fauzia Whyte MD Essential (primary) hypertension 5 Patient Outreach [facility] CASE MANAGEMENT [place] Arlene Zapata RN Anxiety (Primary Dx); COPD with exacerbation; Essential hypertension 5 8:17 AM EDT - 5 11:59 PM EDT Hospital Encounter [facility] CT AT [address] [phone] Fauzia Whyte MD Tobacco abuse Discharge Disposition: Home or Self Care 5 Patient Outreach [facility] AMBULATORY SOCIAL WORK [address] [place] [phone] Kavya Delgado [facility] 5 Patient Outreach [facility] AMBULATORY SOCIAL WORK [address] [place] [phone] Kavya Delgado, [facility] 5 Refill [facility] FAMILY MEDICINE [address] [address] Fauzia Whyte MD Essential hypertension 5 Travel 5 Results Follow-Up [facility] FAMILY MEDICINE [address] [address] Fauzia Whyte MD 5 Refill [facility] FAMILY MEDICINE [address] [address] Fauzia Whyte MD Renovascular hypertension 5 Patient Outreach [facility] CASE MANAGEMENT Arlene Shannon RN Anxiety (Primary Dx); COPD with exacerbation; Essential hypertension from Last 3 Months Immunizations Immunization Administration Dates Next Due COVID-19 (MODERNA) 1st,2nd,3 rd Dose Monovalent 03/10/2021 COVID-19 (PFIZER) BIVALENT 12+YRS 05/03/2022 Flu Vaccine Intradermal Quad 18-64YR 04/28/2019 Fluzone >6mos 04/22/2024,04/08/2016 Fluzone (or Fluarix & Flulav al for VFC) >6mos 04/28/2023,05/03/2022,05/26/2020,2017 Influenza, Unspecified 05/03/2022 Pneumococcal Conjugate 20-Va lent (PCV20) 04/23/2023 flucelvax quad pfs =>4 YRS 04/28/2019 Family History Medical History Relation Name Comments Hyperlipidemia Brother Martin Hypertension Brother Martin Cancer Father Karoline Leukemia Father Karoline No Known Problems Maternal Grandfather No Known Problems Maternal Grandmother Arthritis Mother Deb Hypertension Mother Deb No Known Problems Paternal Grandfather No Known Problems Paternal Grandmother Relation Name Status Comments Brother Martin Alive Father Karoline (Age 68) Maternal Grandfather Maternal Grandmother Mother Deb Alive Paternal Grandfather Paternal Grandmother Social History Tobacco Use Types Packs/Day Years Used Date Smoking Tobacco: Every Day Cigarettes 1 35 Passive Smoke Exposure: Current Smokeless Tobacco: Never Tobacco Cessation:Ready to Q uit: Not Asked; Counseling Given: Not Answered Comments:Smoking 1-1 1/2 pack a day Alcohol Use Standard Drinks/Week Comments No 0 (1 standard drink = 0.6 oz pur e alcohol) [facility] Utilities Answer Date Recorded In the past 12 months has [employer], gas, oil, or water [employer] threatened to shut off services in your [...] any time in the past 12 m [facility], were you homeless or living in a senior care (including now)? No 11/18/2024 Abuse Screen Answer [...] F) 02/05/2025 8:43 AM EDT Respiratory Rate 18 01/11/2025 6:13 PM EDT Oxygen Saturation 96% 02/05/2025 8:4 3 AM EDT resting, 3 liters pulse dose Inhaled Oxygen Concentration - - Weight 109 kg (240 lb) 02/05/2025 8:43 AM EDT Height 175 cm (5' 8.9 ) 02/05/2025 8:43 AM EDT Body Mass Index 35.54 02/05/2025 8:43 AM EDT Plan of Treatment Upcoming Encounters Date Type Department Care Team (Late st Contact Info) Description 03/12/2025 8:30 AM EDT Office Visit [facility] PULMONARY & CRITICAL CARE MEDICINE [address] [place] [address] Rae Truong, INTERNATIONAL EDITORIAL PRODUCER [address] [place] [address] 04/29/2025 9:30 AM EDT Office Visit [facility] FAMILY MEDICINE [address] [phone] Fauzia Whyte MD [address] [address] Health Maintenance Due Date Last Done Comments COLOGUARD 2009 COLON CANCER SCREENING 5 YEA R SIGMOID[address]COPY [address] COLONOGRAPHY 2009 FIT Testing (1 year) 2009 ZOSTER VACCINE (1 of 2) 2014 COLONOSCOPY 04/23/2023 04/23/2013 COVID-19 Vaccine (3 2023-2 5 season) 2024 05/03/2022, 03/10/2021 ANNUAL PHYSICAL 08/14/2024 08/14/2023 COLORECTAL CANCER SCREENING 10/31/2024 FECAL OCCULT BLOOD TEST 10/31/2024 11/01/2023 INFLUENZA VACCINE 04/22/2025 04/22/2024, , 05/03/2022, Additional history exists LUNG CANCER SCREENING 01/01/2026 01/01/2025 , 11/18/2024, 01/25/2022 TDAP/TD VACCINES (2 - Td or Tdap) 11/07/2026 017 HEPATITIS C SCREENING Completed 01/29/2018 , 10/04/2016 (Declined), 07/14/2015 Pneumococcal Vaccine 50+ Completed 04/23/2023 Goals Goal Patient Goal Type Associated Problems [...] relieve obstructive sleep apnea when present. Notes: Procedures Procedure Name Priority Date/Time Associated Diagnosis Comments PULMONARY FUNCTION TEST Routine 02/05/2025 9:20 AM EDT COPD with acute exacerbation SCANNED - PULMONARY RESULTS 02/05/2025 CT CERVICAL SPINE WO CONTRAST STAT 01/11/2025 6:[address] HEAD WO CONTRAST STAT 01/11/2025 6 :50 PM EDT XR CHEST PA AND LATERAL Routine 01/05/2025 10:27 AM EDT Hospital discharge follow-up COPD with acute exacerbation PROTIME-INR Urgent 01/02/2025 5:50 AM EDT CBC WITH AUTO DIFFERENTIAL Urgent 01/02/2025 5:50 AM EDT COMPREHENSIVE METABOLIC PANEL Urgent 01/02/2025 5:50 AM EDT MAGNESIUM STAT 01/01/2025 11:15 AM EDT HIGH SENSITIVITIY TROPONIN T 1HR STAT 01/01/2025 11:15 AM EDT ECG 12-LEAD STAT 01/01/2025 11:[address] ANGIOGRAM CHEST PULMONARY EMBOLISM STAT 01/01/2025 11:05 AM EDT RESPIRATORY PANEL PCR W/ COVID-19 (SARS-COV-2), 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 SWAB IN UTM/VTP, 2 HR TAT STAT 01/01/2025 9:48 AM EDT LIGHT BLUE TOP STAT 01/01/2025 9:44 AM EDT FLORES TOP STAT 01/01/2025 9:44 AM EDT GOLD TOP - SST STAT 01/01/2025 9:44 AM EDT LAVENDER TOP STAT 01/01/2025 9:44 AM EDT DK GREEN TOP STAT 01/01/2025 9:44 AM EDT CBC AND DIFFERENTIAL STAT 01/01/2025 9:44 AM EDT PROTIME-INR STAT 01/01/2025 9:44 AM EDT CBC WITH AUTO DIFFERENTIAL STAT 01/01/2025 9:44 AM EDT TROPONIN STAT 01/01/2025 9:44 AM EDT B-TYPE NATRIURETIC PEPTIDE STAT 01/01/2025 9:44 AM EDT COMPREHENSIVE METABOLIC PANEL STAT 01/01/2025 9:44 AM EDT RAINBOW DRAW STAT 01/01/2025 9:44 AM EDT XR CHEST 1 VW STAT 01/01/2025 9:40 AM EDT [facility] ILL/INJURED PATIENT ADDL 30 MIN Routine 01/01/2025 9:35 AM EDT ECG 12-LEAD STAT 01/01/2025 9:31 AM EDT XR CHEST 1 VW STAT 12/30/2024 10:11 AM EDT LIGHT BLUE TOP STAT 12/30/2024 10:02 AM EDT FLORES TOP STAT 12/30/2024 10:02 AM EDT GOLD TOP - SST STAT 12/30/2024 10:02 AM EDT LAVENDER TOP STAT 12/30/2024 10:02 AM EDT DK GREEN TOP STAT 12/30/2024 10:02 AM EDT CBC AND DIFFERENTIAL STAT 12/30/2024 10:02 AM EDT PROTIME-INR STAT 12/30/2024 10:02 AM EDT CBC WITH AUTO DIFFERENTIAL STAT 12/30/2024 10:02 AM EDT TROPONIN STAT 12/30/2024 10:02 AM EDT B-TYPE NATRIURETIC PEPTIDE STAT 12/30/2024 10:02 AM EDT COMPREHENSIVE METABOLIC PANEL STAT 12/30/2024 10:02 AM EDT RAINBOW DRAW STAT 12/30/2024 10:02 AM EDT ECG 12-LEAD STAT 12/30/2024 9:50 AM EDT POC SARS ANTIGEN Routine 12/30/2024 9:11 AM EDT Fever, unspecified fever cause POCT INFLUENZA A/B Routine 12/30/2024 9: 10 AM EDT Fever, unspecified fever cause POCT RAPID STREP A Routine 12/30/2024 8: 40 AM EDT Sore throat XR ABDOMEN KUB Routine 12/19/2024 11:31 AM EDT Constipation, unspecified constipation type CT CHEST LOW DOSE WO CANCER SCREENING Routine 11/18/2024 8:46 AM EDT Tobacco abuse SCANNED EKG 11/16/2024 SCANNED - LABS 11/16/2024 SCANNED - LABS 11/16/2024 SCANNED - LABS 11/16/2024 SCANNED - IMAGING 11/16/2024 SCANNED - INFLUENZA 04/28/2019 HEPATITIS PANEL, ACUTE Routine 07/14/2015 8:48 AM EST HM COLONOSCOPY Routine 04/23/2013 from Last 3 Months or Most Recently Relevant to Health Maintenance Results * Spirometry with Diffusion Capacity & Lung Volumes (02/05/2025 9:20 AM EDT) us Rae Truong APRN PFT ORDERABLES Final Result * Pulmonary Results Scan (02/05/2025) us Rae Truong APRN PFT ORDERABLES Final Result * CT Cervical Spine Without Contrast (01/11/2025 6:50 PM EDT) Anatomical Region Laterality Modality C-spine N/A Computed Tomogra phy 01/11/2025 7:15 PM EDT Impressions 01/11/2025 7:18 PM EDT Impression: 1.No acute intracranial abnormality. 2.No acute fracture or malalignment of the cervical spine. 3.Mild cervical degenerative changes. Electronically Signed: Yoni Wright MD 01/11/2025 7:18 PM EDT Workstation ID: [id number] Narrative 01/11/2025 7:[address] CERVICAL [...] intracranial hemorrhage, mass, midline shift, loss of flores-white matter differentiation, or extra-axial fluid collection. There [...] acute intracranial hemorrhage, mass, midlineshift, loss of flores-white matter differentiation, or extra-axial fluidcollection. There is [...] MD 01/11/2025 7:18 PM EDT Workstation ID: [id number] us Aly Avery Voss PA-C IMAntoni CT ORDERABLES Final Resu [...] MD 01/11/2025 7:18 PM EDT Workstation ID: [id number] Narrative 01/11/2025 7:[address] CERVICAL [...] intracranial hemorrhage, mass, midline shift, loss of flores-white matter differentiation, or extra-axial fluid collection. There [...] acute intracranial hemorrhage, mass, midlineshift, loss of flores-white matter differentiation, or extra-axial fluidcollection. There is [...] MD 01/11/2025 7:18 PM EDT Workstation ID: [id number] us Aly A Shanika WEBBER IMG CT ORDERABLES Final Resu lt * XR Chest PA & Lateral (In Office) (01/05/2025 10:27 AM EDT) Anatomical Region Laterality Modality Body, Chest N/A Radiographic Leslie ging 01/06/2025 12:3 7 PM EDT Impressions 01/06/2025 12:38 PM EDT Impression: No acute cardiopulmonary disease. Electronically Signed: Hudson Vernon MD 01/06/2025 12:38 PM EDT Workstation ID: [id number] Narrative 01/06/2025 12:38 PM EDT XR CHEST [...] MD 01/06/2025 12:38 PM EDT Workstation ID: [id number] Fauzia Whyte MD IMG DIAGNOSTIC IMAGING ORDERA BLES Final Result * (ABNORMAL) CBC Auto Differential (01/02/2025 5:50 AM EDT) Only the most recent of3 resultswithin the time period is included. WBC 12.81(H) 3.40 - 10.80 10*3/mm3 01/02/2025 6:08 AM EDT [facility] RBC 4.81 4.14 - 5.80 10*6/mm3 01/02/2025 6:08 AM EDT [facility] Hemoglobin 14.7 13.0 - 17.7 g/dL 01/02/2025 6:08 AM [facility] Hematocrit 41.8 37.5 - 51.0 % 01/02/2025 6:08 AM [facility] MCV 86.9 79.0 - 97.0 fL 01/02/2025 6:08 AM [facility] MCH 30.6 26.6 - 33.0 pg 01/02/2025 6:08 AM [facility] MCHC 35.2 31.5 - 35.7 g/dL 01/02/2025 6:08 AM [facility] RDW 12.4 12.3 - 15.4 % 01/02/2025 6:08 AM [facility] RDW-SD 40.3 37.0 - 54.0 fl 01/02/2025 6:08 AM [facility] MPV 9.3 6.0 - 12.0 fL 01/02/2025 6:08 AM [facility] Platelets 154 140 - 450 10*3/mm3 01/02/2025 6:08 AM [facility] Neutrophil % 86.9(H) 42.7 - 76.0 % 01/02/2025 6:08 AM [facility] Lymphocyte % 9.8(L) 19.6 - 45.3 % 01/02/2025 6:08 AM [facility] Monocyte % 3.0(L) 5.0 - 12.0 % 01/02/2025 6:08 AM [facility] Eosinophil % 0.1(L) 0.3 - 6.2 % 01/02/2025 6:08 AM [facility] Basophil % 0.0 0.0 - 1.5 % 01/02/2025 6:08 AM [facility] Immature Grans % 0.2 0.0 - 0.5 % 01/02/2025 6:08 AM [facility] Neutrophils, Absolute 11.13(H) 1.70 - 7.00 10*3/mm3 01/02/2025 6:08 AM EDT [facility] Lymphocytes, Absolute 1.26 0.70 - 3.10 10*3/mm3 01/02/2025 6:08 AM EDT [facility] Monocytes, Absolute 0.38 0.10 - 0.90 10*3/mm3 01/02/2025 6:08 AM EDT [facility] Eosinophils, Absolute 0.01 0.00 - 0.40 10*3/mm3 01/02/2025 6:08 AM EDT [facility] Basophils, Absolute 0.00 0.00 - 0.20 10*3/mm3 01/02/2025 6:08 AM EDT [facility] Immature Grans, Absolute 0.03 0.00 - 0.05 10*3/mm3 01/02/2025 6:08 AM EDT [facility] Blood Venipuncture / Unknown 01/02/2025 5:50 AM EDT 01/02/2025 6:03 AM EDT us Kelsey E Voss PA-C LAB BLOOD ORDERABLES Final Result [facility]
[address] [address], [place] * (ABNORMAL) Protime-INR (01/02/2025 5:50 AM EDT) Only the most recent of3 resultswithin the time period is included. Protime 25.5(H) 12.2 - 14.5 Seconds 01/02/2025 6:16 AM EDT [facility] INR 2.24(H) 0.89 - 1.12 01/02/2025 6:16 AM EDT [facility] Blood Venipuncture / Unknown 01/02/2025 5:50 AM EDT 01/02/2025 6:03 AM EDT us Kelsey E Voss PA-C LAB BLOOD ORDERABLES Final Result [facility]
[address] [facility] [address] [place] [address], * (ABNORMAL) Comprehensive Metabolic Panel (01/02/2025 5:50 AM EDT) Only the most recent of3 resultswithin the time period is included. Glucose 130(H) 65 - 99 mg/dL 01/02/2025 6:22 AM EDT [facility] BUN 25.1(H) 8.0 - 23.0 mg/dL 01/02/2025 6:22 AM EDT [facility] Creatinine 0.87 0.76 - 1.27 mg/dL 01/02/2025 6:22 AM EDT [facility] Sodium 138 136 - 145 mmol/L 01/02/2025 6:22 AM [facility] Potassium 4.5 3.5 - 5.2 mmol/L 01/02/2025 6:22 AM [facility] Chloride 102 98 - 107 mmol/L 01/02/2025 6:22 AM [facility] CO2 26.3 22.0 - 29.0 mmol/L 01/02/2025 6:22 AM [facility] Calcium 9.5 8.6 - 10.5 mg/dL 01/02/2025 6:22 AM [facility] Total Protein 6.4 6.0 - 8.5 g/dL 01/02/2025 6:22 AM [facility] Albumin 3.8 3.5 - 5.2 g/dL 01/02/2025 6:22 AM [facility] ALT (SGPT) 15 1 - 41 U/L 01/02/2025 6:22 AM [facility] AST (SGOT) 21 1 - 40 U/L 01/02/2025 6:22 AM [facility] Alkaline Phosphatase 99 39 - 117 U/L 01/02/2025 6:22 AM [facility] Total Bilirubin 0.3 0.0 - 1.2 mg/dL 01/02/2025 6:22 AM [facility] Globulin 2.6 gm/dL 01/02/2025 6:22 AM EDT [facility] A/G Ratio 1.5 g/dL 01/02/2025 6:22 AM EDT [facility] BUN/Creatinine Ratio 28.9(H) 7.0 - 25.0 01/02/2025 6:22 AM EDT [facility] Anion Gap 9.7 5.0 - 15.0 mmol/L 01/02/2025 6:22 AM EDT [facility] eGFR 98.8 >60.0 mL/min/1.7 3 01/02/2025 6:22 AM EDT [facility] Blood Venipuncture / Unknown 01/02/2025 5:50 AM EDT 01/02/2025 6:03 AM EDT [facility] - 01/02/2025 6:22 AM EDT GFR [...] not include race as a factor us Kelsey Bonner Voss PA-C LAB BLOOD ORDERABLES Final Result [facility]
[address] [address], * High Sensitivity Troponin T 1Hr (01/01/2025 11:15 AM EDT) HS Troponin T <6 <22 ng/L 01/01/2025 11:35 AM EDT [facility] Troponin T Numeric Delta 01/01/2025 11:35 AM EDT [facility] Comment:Unable to calculate. Blood Line / Unknown 01/01/2025 11 :15 AM EDT 01/01/2025 11:17 AM EDT Narrative [facility] - 01/01/2025 11:35 AM EDT High [...] injury due to an underlying chronic condition. Vahid Joe DO LAB BLOOD ORDERABLES Final Result Performing Organization Address City/[facility]/ZIP Co de Phone Number [facility]
[address] [place] [address], * Magnesium (01/01/2025 11:15 AM EDT) Magnesium 2.1 1.6 - 2.4 mg/dL 01/01/2025 1:14 PM EDT [facility] Blood Line / Unknown 01/01/2025 11 :15 AM EDT 01/01/2025 11:17 AM EDT Kelsey Voss PA-C LAB BLOOD ORDERABLES Final Result Performing Organization Address [facility] Co de Phone Number [facility]
[address] [place] [address], * ECG 12 Lead Dyspnea (01/01/2025 11:13 AM EDT) Only the most recent of3 resultswithin the time period is included. QT Interval 446 ms ECG QTC Interval [...] change was found Confirmed by Vahid Joe ([id number]) on 01/02/2025 6:53:48 PM Referred By: Confirmed By: Vahid Joe Procedure Note Vahid Joe DO - 01/02/2025 Test Reason : Dyspnea [...] change was found Confirmed by Vahid Joe ([id number]) on 01/02/2025 6:53:48 PM Referred By: Confirmed [...] MD 01/01/2025 11:23 AM EDT Workstation ID: [id number] Narrative 01/01/2025 11:[address] ANGIOGRAM [...] MD 01/01/2025 11:23 AM EDT Workstation ID: [id number] Leslie Arciniega PA-C [facility] ORDERABLES Final Result * (ABNORMAL) Respiratory Panel PCR w/COVID-19(SARS-CoV-2) SINA/JEZ/FLORA/PAD/COR/ROSALVA 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, 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 Swab in UTM/VTM, 2 HR TAT - Swab, Nasopharynx (01/01/2025 9:48 AM EDT) [facility] ADENOVIRUS, PCR Not Detected Not Detected BIOFIRE FILMARRAY 01/01/2025 10:42 AM [facility] Coronavirus 229E Not Detected Not Detected BIOFIRE FILMARRAY 01/01/2025 10:42 AM [facility] Coronavirus HKU1 Not Detected Not Detected BIOFIRE FILMARRAY 01/01/2025 10:42 AM [facility] Coronavirus NL63 Not Detected Not Detected BIOFIRE FILMARRAY 01/01/2025 10:42 AM [facility] Coronavirus OC43 Not Detected Not Detected BIOFIRE FILMARRAY 01/01/2025 10:42 AM [facility] COVID19 Not Detected Not Detected - Ref. Range BIOFIRE FILMARRAY 01/01/2025 10:42 AM [facility] Human Metapneumovirus Not Detected Not Detected BIOFIRE FILMARRAY 01/01/2025 10:42 AM [facility] Human Rhinovirus/Enterov irus Not Detected Not Detected BIOFIRE FILMARRAY 01/01/2025 10:42 AM [facility] Influenza A PCR Not Detected Not Detected BIOFIRE FILMARRAY 01/01/2025 10:42 AM [facility] Influenza B PCR Not Detected Not Detected BIOFIRE FILMARRAY 01/01/2025 10:42 AM [facility] Parainfluenza Virus 1 Not Detected Not Detected BIOFIRE FILMARRAY 01/01/2025 10:42 AM [facility] Parainfluenza Virus 2 Not Detected Not Detected BIOFIRE FILMARRAY 01/01/2025 10:42 AM [facility] Parainfluenza Virus 3 Detected(A) Not Detected BIOFIRE FILMARRAY 01/01/2025 10:42 AM [facility] Parainfluenza Virus 4 Not Detected Not Detected BIOFIRE FILMARRAY 01/01/2025 10:42 AM [facility] RSV, PCR Not Detected Not Detected BIOFIRE FILMARRAY 01/01/2025 10:42 AM EDT [facility] Bordetella pertussis pcr Not Detected Not Detected BIOFIRE FILMARRAY 01/01/2025 10:42 AM EDT [facility] Bordetella parapertussis PCR Not Detected Not Detected BIOFIRE FILMARRAY 01/01/2025 10:42 AM EDT [facility] Chlamydophila pneumoniae PCR Not Detected Not Detected BIOFIRE FILMARRAY 01/01/2025 10:42 AM EDT [facility] Mycoplasma pneumo by PCR Not Detected Not Detected BIOFIRE FILMARRAY 01/01/2025 10:42 AM EDT [facility] Swab Nasopharyngeal structure / Unknown Collection / Unknown 01/01/2025 9:48 AM EDT 01/01/2025 9:52 AM EDT [facility] - 01/01/2025 10:42 AM EDT In [...] antibiotic de-escalation to target atypical bacterial infection. us Leslie Arciniega PA-C MICROBIOLOGY - GENERAL O RDERABLES Final Result Performing Organization Address City/[facility]/ZIP Co de Phone Number [facility]
[address] [address], * Flores Top (01/01/2025 9:44 AM EDT) Only the most recent of2 resultswithin the time period is included. Extra Tube Hold for add-ons. 01/01/2025 10:00 AM EDT [facility] Comment:Auto resulted. Blood Line / Unknown 01/01/2025 9: 44 AM EDT 01/01/2025 9:52 AM EDT Vahid Joe DO LAB BLOOD ORDER ONLY Final Result [facility]
[address] [facility] [address] [place] [address], [place] * Gold Top - SST (01/01/2025 9:44 AM EDT) Only the most recent of2 resultswithin the time period is included. Extra Tube Hold for add-ons. 01/01/2025 10:00 AM EDT [facility] Comment:Auto resulted. Blood Line / Unknown 01/01/2025 9: 44 AM EDT 01/01/2025 9:51 AM EDT Vahid Joe DO LAB BLOOD ORDER ONLY Final Result Performing Organization Address City/[facility]/ZIP Co de Phone Number [facility]
[address] [facility] [address] [place] [address], [place] * Green Top (Gel) (01/01/2025 9:44 AM EDT) Only the most recent of2 resultswithin the time period is included. Extra Tube Hold for add-ons. 01/01/2025 10:00 AM EDT [facility] Comment:Auto resulted. Blood Line / Unknown 01/01/2025 9: 44 AM EDT 01/01/2025 9:52 AM EDT Vahid Joe DO LAB BLOOD ORDER ONLY Final Result [facility]
[address] [facility] [address] [place] [address], [place] * Lavender Top (01/01/2025 9:44 AM EDT) Only the most recent of2 resultswithin the time period is included. Extra Tube hold for add-on 01/01/2025 10:00 AM EDT [facility] Comment:Auto resulted Blood Line / Unknown 01/01/2025 9: 44 AM EDT 01/01/2025 9:52 AM EDT Vahid Joe DO LAB BLOOD ORDER ONLY Final Result [facility]
[address] [place] [address], [place] * Light Blue Top (01/01/2025 9:44 AM EDT) Only the most recent of2 resultswithin the time period is included. Extra Tube Hold for add-ons. 01/01/2025 10:00 AM EDT [facility] Comment:Auto resulted Blood Line / Unknown 01/01/2025 9: 44 AM EDT 01/01/2025 9:52 AM EDT Vahid Joe DO LAB BLOOD ORDER ONLY Final Result Performing Organization Address [facility] Co de Phone Number [facility]
[address] [place] [address], [place] * High Sensitivity Troponin T (01/01/2025 9:44 AM EDT) Only the most recent of2 resultswithin the time period is included. Pathologist [facility] HS Troponin T <6 <22 ng/L 01/01/2025 10:12 AM EDT [facility] Blood Line / Unknown 01/01/2025 9: 44 AM EDT 01/01/2025 9:52 AM EDT Vahid Joe DO LAB BLOOD ORDERABLES Final Result Performing Organization Address City/[facility]/ZIP Co de Phone Number [facility]
[address] [place] [address], [place] * BNP (01/01/2025 9:44 AM EDT) Only the most recent of2 resultswithin the time period is included. proBNP 241.0 0.0 - 900.0 pg/mL 01/01/2025 10:13 AM EDT [facility] Blood Line / Unknown 01/01/2025 9: 44 AM EDT 01/01/2025 9:52 AM EDT Narrative [facility] - 01/01/2025 10:13 AM EDT This [...] LAB BLOOD ORDERABLES Final Result [facility]
[address] [facility] [address] [place] [address], * XR Chest 1 View (01/01/2025 9:40 AM EDT) Only the most recent of2 resultswithin the time period is included. Anatomical Region Laterality Modality Body N/A Radiographic Leslie ging 01/01/2025 9:44 AM EDT Impressions 01/01/2025 9:45 AM EDT Impression: 1.No acute radiographic abnormality is identified. Electronically Signed: Andrey Munoz MD 01/01/2025 9:45 AM EDT Workstation ID: [id number] Narrative 01/01/2025 9:45 AM EDT XR CHEST 1 VW Date of Exam: 01/01/2025 9:40 AM EDT Indication: SOA triage protocol Comparison: 12/30/2024 Findings: The lungs appear adequately aerated without consolidation or mass. No pleural effusion or pneumothorax is identified. The cardiomediastinal silhouette and pulmonary vasculature appear within normal limits. No acute or suspicious osseous lesion is identified. Procedure Note Andrey Munoz MD - 06/12/2025 XR CHEST 1 VW Date of Exam: [...] MD 01/01/2025 9:45 AM EDT Workstation ID: [id number] Vahid Joe DO IMG DIAGNOSTIC IMAGING ORDE RABLES Final Result * [facility] ILL/INJURED PATIENT ADDL 30 MIN [...] PROCEDURE/MINOR SURGICAL OR DERABLES Final Result * POCT SARS-CoV-2 Antigen (12/30/2024 9:11 AM EDT) SARS Antigen Not Detected Not Detected, Presumptive Negative Internal Control Passed Passed Lot Number [id number] Expiration Date 12/30/2024 Swab Nasopharyngeal structure / Unknown 12/30/2024 9:11 AM EDT [employer] POINT OF CARE TEST ORDERABLES F inal Result * POCT Influenza A/B (12/30/2024 9:10 AM EDT) [facility] Rapid Influenza A Ag Negative Negative [facility] Rapid Influenza B Ag Negative Negative [facility] Internal Control Passed Passed [facility] Lot Number [id number] [facility] Expiration Date 05/08/2026 [facility] Swab 12/30/2024 9:10 AM EDT [employer] POINT OF CARE TEST ORDERABLES F inal Result Performing Organization Address City/[facility]/ZIP Co de Phone Number [facility]
[address] [place] [address], * POC Rapid Strep A (12/30/2024 8:40 AM EDT) [facility] Rapid Strep A Screen Negative Negative, VALID, INVALID, Not Performed [facility] Internal Control Passed Passed [facility] Lot Number [id number] [facility] Expiration Date 10/02/2026 [facility] Swab 12/30/2024 8:40 AM EDT [employer] POINT OF CARE TEST ORDERABLES F inal Result Performing Organization Address City/[facility]/ZIP Co de Phone Number [facility]
[address] [place] [id number], * XR Abdomen KUB (In Office) (12/19/2024 11:31 AM EDT) Anatomical Region Laterality Modality Body, Abdomen N/A Radiographic Leslie ging 12/20/2024 8:16 AM EDT Impressions 12/20/2024 8:17 AM EDT Impression: Moderate stool burden in the ascending colon. Nonspecific but nonobstructive bowel gas pattern. No acute findings. Electronically Signed: Laura Hernandez MD 12/20/2024 8:17 AM EDT Workstation ID: [id number] Narrative 12/20/2024 8:17 AM EDT XR ABDOMEN [...] MD 12/20/2024 8:17 AM EDT Workstation ID: [id number] us Macarena Chin PA-C IM[facility] DIAGNOSTIC IMAGING ORD ERABLES Final Result * CT Chest Low Dose Cancer Screening WO (11/18/2024 8:46 AM EDT) Anatomical Region Laterality Modality Chest Computed Tomogra phy 11/21/2024 2:22 PM EDT Impressions 11/21/2024 2:33 PM EDT Impression: 1.No suspicious lung nodules. 2.Atrophic right kidney. Recommendation: Continue annual screening with LDCT. Lung Rads Assessment: Lung-RADS L1 - Negative, <1% chance of malignancy. Electronically Signed: Lima Corona MD 11/21/2024 2:33 PM EDT Workstation ID: [id number] Narrative 11/21/2024 2:[address] CHEST LOW DOSE CANCER SCREENING WO Date of Exam: 11/18/2024 8:32 AM EDT Indication: Tobacco abuse. Comparison: CT chest 01/25/2022 Technique: Low dose CT imaging of the chest was performed without intravenous contrast enhancement. Automated exposure control and iterative reconstruction methods were used. Findings: No suspicious lung nodules are seen. Lungs are clear. No pleural or pericardial effusion. Normal heart size. There are coronary calcifications. No lymphadenopathy seen in the chest. Bilateral gynecomastia. Atrophic right kidney. Remaining partially included solid organs of the upper abdomen appear unremarkable for low-dose, noncontrast CT. No acute osseous abnormality is identified. Procedure Note Lima Corona MD - 11/21/2024 CT CHEST LOW DOSE CANCER SCREENING WO Date of Exam: 11/18/2024 8:32 AM EDT Indication: Tobacco abuse. Comparison: CT chest 01/25/2022 Technique: Low dose CT imaging of the chest was performed withoutintravenous contrast enhancement. Automated exposure control anditerative reconstruction methods were used. Findings: No suspicious lung nodules are seen. Lungs are clear. No pleural orpericardial effusion. Normal heart size. There are coronarycalcifications. No lymphadenopathy seen in the chest. Bilateralgynecomastia. Atrophic right kidney. Remaining partially included solid organs of the upper abdomen appear unremarkable forlow-dose, noncontrast CT. No acute osseous abnormality is identified. IMPRESSION: Impression: 1.No suspicious lung nodules. 2.Atrophic right kidney. Recommendation: Continue annual screening with LDCT. Lung Rads Assessment: Lung-RADS L1 - Negative, <1% chance of malignancy. Electronically Signed: Lima Corona MD 11/21/2024 2:33 PM EDT Workstation ID: [id number] us Fauzia Whyte MD IMG CT ORDERABLES Final Resul t * ECG Scan (11/16/2024) Result Rand Whyte MD ECG ORDERABLES Final Result * IMAGING SCANNED (11/16/2024) Anatomical Region Laterality Modality Radiographic Leslie ging Result Rand Whyte MD IMG DIAGNOSTIC IMAGING ORDERA BLES Final Result * LABS SCANNED (11/16/2024) Only the most recent of3 resultswithin the time period is included. Result Rand Whyte MD LAB BLOOD ORDERABLES Final Re sult * SCANNED - INFLUENZA (04/28/2019) Result Rand Whyte MD CHART REVIEW TABS Final Re sult * Hepatitis panel, acute (07/14/2015 8:48 AM EST) Hep A IgM Negative Negative [facility] ([facility]) Hepatitis B Surface Ag Negative Negative [facility]) Hep B Core IgM Negative Negative [facility] ([facility]) Hepatitis C Ab <0.1 0.0 - 0.9 s/co ratio [facility] ([facility]) Comment: Negative: < 0.8 Indeterminate: 0.8 - 0.9 Positive: > 0.9 . In order to reduce the incidence of a false positive result, the CDC recommends that all s/co ratios between 1.0 and 10.9 be confirmed by a more specific supplemental or PCR testing. [facility] offers HCV Ab w/Reflex to Verification test #[id number]. 07/14/2015 8:48 AM EST 07/14/2015 11:53 PM EST Result Rand Whyte MD LAB BLOOD ORDERABLES Edited R esult - Final [facility] [place] ([facility]) [id number] [place] [address], [place] [phone] * COLONOSCOPY (04/23/2013) Colonoscopy ORDERING DR. FAUZIA WHYTE, COMPLETED us Historical Provider HEALTH MAINTENANCE Final Result from Last 3 Months or Most Recently Relevant to Health Maintenance Additional Health Concerns Active Problems Noted Date Diagnosed Date Hypertension (Hypertension) 05/08/2024 Disease Progression (Hypertension) 05/08/2024 Resistant Hypertension (Hypertension) 05/08/2024 Infection Onset Date Last Indicated Other Comment:Parainfluenza 3 per RVP 01.01.2025 01/02/2025 01/02/2025 Insurance [employer] [place]ICAID [place] Advance Directives * CPR (Attempt to Resuscitate) (Latest Code Status on File) Date Activated Date Inactivated Comments 01/01/2025 1:01 PM 01/02/2025 3:39 PM Question Answer Comments Code Status (Patient has no pulse and is not breathing): CPR (Attempt to Resuscitate) Medical Interventions (Patie nt has pulse or is breathing): Full Support Level Of Support Discussed With: Patient Care Teams Marketing Analyst Relationship Specialty [place] [address] [place], [place] [id number] PCP - General Family Medicine 09/03/18
--- OUTSIDE RECORDS SUMMARY | 2025-02-12 16:57 | XMS_ITS | Encounter Summary ---
[facility] Address [address] [place] [address] Care Team Providers Care Registered Nurse Step Down Name Role Phone Fauzia Sterling MD Primary Care Provider [phone] Reason for Visit * Reason Onset Date Comments Med Refill 02/06/2025 Encounter Details Date Type Department Care Team (Late st Contact Info) Description 02/06/2025 Refill [facility] PULMONARY & CRITICAL CARE MEDICINE [address] [place] [address] Rae Truong, PLAIN CLOTHES POLICE OFFICER [address] [place], [place] [phone] Chronic obstructive pulmonary disease, unspecified COPD type Social History Tobacco Use Types Packs/Day Years Used Date Smoking Tobacco: Every Day Cigarettes 1 35 Passive Smoke Exposure: Current Smokeless Tobacco: Never Comments:Smoking 1-1 1/2 pac k a day Alcohol Use Standard Drinks/Week Comments No 0 (1 standard drink = 0.6 oz pur e alcohol) [facility] Utilities Answer Date Recorded In the past 12 months has [employer] electric, gas, oil, or water company threatened [...] were you homeless or living in a mcc (including now)? No 11/18/2024 Abuse Screen Answer [...] Description 03/12/2025 8:30 AM EDT Office Visit [facility] PULMONARY & CRITICAL CARE MEDICINE [address] [place] [address] Rae Truong, PLAIN [employer]OTHES POLICE OFFICER [address] [place] [address] 04/29/2025 9:30 AM EDT Office Visit [facility] FAMILY MEDICINE [address] [phone] Fauzia Sterling MD [address] [address] documented as of this encounter Goals Goal [...] Diagnosis Chronic obstructive pulmonary disease, unspecified COPD type documented in this encounter Additional Health Concerns Active Problems Noted Date Diagnosed Date Hypertension (Hypertension) 05/08/2024 Disease Progression (Hypertension) 05/08/2024 Resistant Hypertension (Hypertension) 05/08/2024 Infection Onset Date Last Indicated Resolved Time Other Comment:Parainfluenza 3 per RVP 01.01.2025 01/02/2025 01/02/2025 documented as of this encounter Care Teams Registered Nurse Step Down Relationship Specialty Start Date End Date Fauzia Sterling MD [address] [address] PCP - General Family Medicine 09/03/18 documented as of this encounter
--- OUTSIDE RECORDS SUMMARY | 2025-02-12 16:57 | XMS_ITS | Encounter Summary ---
[facility] Address [address] [place] [address] Care Team Providers Care Playground Attendant Name Role Phone Fauzia Sterling MD Primary Care Provider [phone] Reason for Visit * Reason Onset Date Comments Prior Authorization 02/11/2025 Encounter Details Date Type Department Care Team (Late st Contact Info) Description 02/11/2025 Telephone [facility] PULMONARY & CRITICAL CARE MEDICINE [address] [facility] [address] [place] [address] Rae Truong, CHIPPER OPERATOR [address] [place] [address] Prior Authorization Social History Tobacco Use Types Packs/Day Years Used Date Smoking Tobacco: Every Day Cigarettes 1 35 Passive Smoke Exposure: Current Smokeless Tobacco: Never Comments:Smoking 1-1 1/2 pac k a day Alcohol Use Standard Drinks/Week Comments No 0 (1 standard drink = 0.6 oz pur e alcohol) [facility] Utilities Answer Date Recorded In the past 12 months has [employer] electric, gas, oil, or water company threatened [...] any time in the past 12 m [facility], were you homeless or living [...] Encounter - Courtney Oviedo MA - 02/11/2025 9:40 AM EDT Opened in error * Telephone Encounter - Sabrina Santiago MA - 02/11/2025 9:33 AM EDT PA for Rx Trelegy 100 approved from 02/11/25-02/11/26. Pharmacy notified. * Telephone Encounter - Sabrina Santiago MA - 02/11/2025 9:32 AM EDT PA for Rx Trelegy 100 in process. (Cruz: [id number]) documented in this encounter Plan of Treatment Upcoming Encounters Date Type Department Care Team (Late st Contact Info) Description 03/12/2025 8:30 AM EDT Office Visit [facility] PULMONARY & CRITICAL CARE MEDICINE [address] [facility] [phone] Rae Truong, CHIPPER OPERATOR [address] [place] [address] 04/29/2025 9:30 AM EDT Office Visit [facility] FAMILY MEDICINE [address] [phone] Fauzia Sterling MD [address] [address] documented as of this encounter Goals Goal [...] documented as of this encounter Care Teams Playground Attendant Relationship Specialty Start Date End Date Fauzia Sterling MD [address] [place], [place] [phone] PCP - General Family Medicine 09/03/18 documented as of this encounter
--- OUTSIDE RECORDS SUMMARY | 2025-02-12 16:57 | XMS_ITS ---
Care Plan Created on: February 12, 2025 Jesus Perales : 1965 Sex: Male Author Organization [facility] Address [address] [place] [address] Care Team Providers Care Imcu Specialist Name Role Phone Fauzia Sterling MD Primary Care Provider [phone] Active Problems Problem Noted Date Diagnosed Date Chronic respiratory failure with hypoxia 025 Hospital discharge follow-up 01/05/2025 Parainfluenza infection 01/05/2025 [...] (01/08/2024 11:17 AM EDT): He has tried ddlj-bzj-[id number] drops and refresh eyedrops. Will give a [...] Decrease caffeine intake. Smoking cessation. Referral to [facility] for further evaluation. Abnormal stress test 02/04/2020 Overview (02/04/2020): Added automatically from request for surgery [id number] Painful lumpy right breast 09/09/2019 Elevated glucose [...] Plantar fasciitis 08/22/2016 Polyuria 08/22/2016 Hypovolemia 08/22/2016 Additional Health Concerns Active Problems Noted Date Diagnosed Date Hypertension (Hypertension) 05/08/2024 Disease Progression (Hypertension) 05/08/2024 Resistant Hypertension (Hypertension) 05/08/2024 Infection Onset Date Last Indicated Other Comment:Parainfluenza 3 per RVP 06..202401/02/2025 01/02/2025 Goals Goal Patient Goal Type Associated Problems [...] relieve obstructive sleep apnea when present. Notes: Interventions Care Plan Interventions Intervention Entry Date Outcome Facilitate Adherence to Lifestyle Change 05/08/2024 Note:Care Management Activities: t- medication adherence assessment completed - pain assessed and managed - success praised - support and encouragement provided Notes: Alleviate Barriers to Hypertension Treatment 05/08/2024 Note:Care Management Activities: t- healthy diet promoted - medication side effects managed - pain assessed and managed - patient response to treatment assessed Notes: Identify and Monitor Blood Pressure Elevation 05/08/2024 Note:Care Management Activities: t- home or ambulatory blood pressure monitoring encouraged Notes: Related Goals and Interventions Goal Associated Intervent ions Hypertension Monitored Identify and Beckie tor Blood Pressure Elevation Disease Progression Prevented or Minimiz ed Alleviate Barriers to Hypertension Treatment Response to Treatment Maximized Facilita te Adherence to Lifestyle Change
--- OUTSIDE RECORDS SUMMARY | 2025-02-12 16:58 | XMS_ITS | Encounter Summary ---
[facility] Address [address] [place] [address] Care Team Providers Care Director Voice Name Role Phone Fauzia Sterling MD Primary Care Provider [phone] Reason for Visit * Reason Comments Med Refill Encounter Details Date Type Department Care Team (Late st Contact Info) Description 01/17/2025 Refill [facility] FAMILY MEDICINE [address] [address] Fauzia Sterling MD [address] [address] COPD with exacerbation Social History Tobacco Use Types Packs/Day Years Used Date Smoking Tobacco: Every Day Cigarettes 1 35 Passive Smoke Exposure: Current Smokeless Tobacco: Never Comments:Smoking 1-1 1/2 pac k a day Alcohol Use Standard Drinks/Week Comments No 0 (1 standard drink = 0.6 oz pur e alcohol) [facility] Utilities Answer Date Recorded In the past 12 months has [employer], gas, oil, or water [employer] threatened to shut off services in your [...] any time in the past 12 m [facility], were you homeless or living in a long term (including now)? No 11/18/2024 Abuse Screen Answer [...] CENTER PULMONARY & CRITICAL CARE MEDICINE [address] [place] [address] Rae Truong, FLYING SQUAD WORKER [address] [place] [address] 04/29/2025 9:30 AM EDT Office Visit [facility] FAMILY MEDICINE [address] [phone] Fauzia Sterling MD [address] [facility] [address] [place] [address] documented as of this encounter Goals Goal [...] Plan Resistant Hypertension (Hypertension) No Claudia Reno, JAYCEE Note: Evidence-based guidance: Assess patient response to [...] as of this encounter Visit Diagnoses Diagnosis COPD with exacerbation documented in this encounter Additional Health Concerns Active Problems Noted Date Diagnosed Date Hypertension (Hypertension) 05/08/2024 Disease Progression (Hypertension) 05/08/2024 Resistant Hypertension (Hypertension) 05/08/2024 Infection Onset Date Last Indicated Resolved Time Other Comment:Parainfluenza 3 per RVP 01.01.2025 01/02/2025 01/02/2025 documented as of this encounter Care Teams Director Voice Relationship Specialty Start Date End Date Fauzia Sterling MD [address] [place] [address] PCP - General Family Medicine 09/03/18 documented as of this encounter
--- OUTSIDE RECORDS SUMMARY | 2025-02-12 16:58 | XMS_ITS | Encounter Summary ---
[facility] Address [address] [place] [address] Care Team Providers Care Medical Authorization Specialist Name Role Phone Fauzia Sterling MD Primary Care Provider [phone] Encounter Details Date Type Department Care Team (Latest Contact Info) Description 01/05/2025 Travel Social History Tobacco Use Types Packs/Day Years Used Date Smoking Tobacco: Every Day Cigarettes 1 35 Passive Smoke Exposure: Current Smokeless Tobacco: Never Comments:Smoking 1-1 1/2 pac k a day Alcohol Use Standard Drinks/Week Comments No 0 (1 standard drink = 0.6 oz pur e alcohol) [facility] Utilities Answer Date Recorded In the past 12 months has [employer], gas, oil, or water [employer] threatened to shut off services in your [...] Description 03/12/2025 8:30 AM EDT Office Visit [facility] PULMONARY & CRITICAL CARE MEDICINE [address] [place] [address] Rae Truong, SHANK CARRIER [address] [place] [address] 04/29/2025 9:30 AM EDT Office Visit [facility] FAMILY MEDICINE [address] [place] [phone] Fauzia Sterling MD [address] [place] [address] documented as of this encounter Goals Goal [...] documented as of this encounter Care Teams Medical Authorization Specialist Relationship Specialty [place] [address] [place] [address] PCP - General Family Medicine 09/03/18 documented as of this encounter
--- OUTSIDE RECORDS SUMMARY | 2025-02-12 16:58 | XMS_ITS | Encounter Summary ---
[facility] Address [address] [place] [address] Care Team Providers Care Organic Preparation Analyst Name Role Phone Fauzia Sterling MD Primary Care Provider [phone] Reason for Visit * Reason Comments Med Refill Encounter Details Date Type Department Care Team (Late st Contact Info) Description 01/16/2025 Refill [facility] [address] [facility] [address] [place] [phone] Macarena Chin, PADawson [address] [place], [place] [phone] Anticoagulant long-term use Social History Tobacco Use Types Packs/Day Years Used Date Smoking Tobacco: Every Day Cigarettes 1 35 Passive Smoke Exposure: Current Smokeless Tobacco: Never Comments:Smoking 1-1 1/2 pac k a day Alcohol Use Standard Drinks/Week Comments No 0 (1 standard drink = 0.6 oz pur e alcohol) [facility] Utilities Answer Date Recorded In the past 12 months has [employer], gas, oil, or water company threatened to [...] any time in the past 12 m [facility], were you homeless or living in a alf (including now)? No 11/18/2024 Abuse Screen Answer [...] Description 03/12/2025 8:30 AM EDT Office Visit [facility] PULMONARY & CRITICAL CARE MEDICINE [address] [place] [address] Rae Truong, MEDICAL PHYSIOLOGIST [address] [place] [address] 04/29/2025 9:30 AM EDT Office Visit [facility] FAMILY MEDICINE [address] [phone] Fauzia Sterling MD [address] [facility] [address] [place] [address] documented as of this encounter Goals Goal [...] documented as of this encounter Care Teams Organic Preparation Analyst Relationship Specialty Start Date End Date Fauzia Sterling MD [address] [address] PCP - General Family Medicine 09/03/18 documented as of this encounter
--- OUTSIDE RECORDS SUMMARY | 2025-02-12 16:58 | XMS_ITS | Encounter Summary ---
[facility] Address [address] [place] [address] Care Team Providers Care Electrical Research Engineer Name Role Phone Fauzia Sterling MD Primary Care Provider [phone] Encounter Details Date Type Department Care Team (Latest Contact Info) Description 01/12/2025 Patient Outreach [facility] CASE MANAGEMENT Arlene Shannon RN Anxiety (Primary Dx); COPD with exacerbation; Essential hypertension Social History Tobacco Use Types Packs/Day Years Used Date Smoking Tobacco: Every Day Cigarettes 1 35 Passive Smoke Exposure: Current Smokeless Tobacco: Never Comments:Smoking 1-1 1/2 pac k a day Alcohol Use Standard Drinks/Week Comments No 0 (1 standard drink = 0.6 oz pur e alcohol) [facility] Utilities Answer Date Recorded In the past 12 months has [employer] electric, gas, oil, or water company threatened [...] in the past 12 m [facility], were you homeless or living in a long-term (including now)? No 11/18/2024 Abuse Screen Answer [...] as of this encounter Miscellaneous Notes * Outreach Note - Arlene Zapata RN - 01/12/2025 3:19 PM EDT AMBULATORY CASE MANAGEMENT NOTE Names and Relationships of Patient/Support Persons: Contact: Jesus Perales ; Relationship: Self - Patient Outreach Spoke with patient as a Chronic Care Management follow up call. Reviewed upcoming appointments withpatient. He stated he is good on all his medications. Patient denied further needs at this time. Arlene Best Ambulatory Case Management 01/12/2025, 15:22 EDT documented in this encounter Plan of Treatment Upcoming Encounters Date Type Department Care Team (Late st Contact Info) Description 03/12/2025 8:30 AM EDT Office Visit [facility] PULMONARY & CRITICAL CARE MEDICINE [address] [place] [address] Rae Truong, WARES SORTER [address] [place] [address] 04/29/2025 9:30 AM EDT Office Visit [facility] FAMILY MEDICINE [address] [phone] Fauzia Sterling MD [address] [address] documented as of this encounter Goals Goal [...] as of this encounter Visit Diagnoses Diagnosis Anxiety- Primary Anxiety state, unspecified COPD with exacerbation Essential hypertension Unspecified essential hypertension documented in this encounter Additional Health Concerns Active Problems Noted Date Diagnosed Date Hypertension (Hypertension) 05/08/2024 Disease Progression (Hypertension) 05/08/2024 Resistant Hypertension (Hypertension) 05/08/2024 Infection Onset Date Last Indicated Resolved Time Other Comment:Parainfluenza 3 per RVP 01.01.2025 01/02/2025 01/02/2025 documented as of this encounter Care Teams Electrical Research Engineer Relationship Specialty Start Date End Date Fauzia Sterling MD [address] [place] [address] PCP - General Family Medicine 09/03/18 documented as of this encounter
--- OUTSIDE RECORDS SUMMARY | 2025-02-12 16:58 | XMS_ITS | Encounter Summary ---
[facility] Address [address] [place] [address] Care Team Providers Care Fuel Efficient Aircraft Designer Name Role Phone Fauzia Sterling MD Primary Care Provider [phone] Encounter Details Date Type Department Care Team (Latest Contact Info) Description 01/09/2025 Travel Social History Tobacco Use Types Packs/Day Years Used Date Smoking Tobacco: Every Day Cigarettes 1 35 Passive Smoke Exposure: Current Smokeless Tobacco: Never Comments:Smoking 1-1 1/2 pac k a day Alcohol Use Standard Drinks/Week Comments No 0 (1 standard drink = 0.6 oz pur e alcohol) [facility] Utilities Answer Date Recorded In the past 12 months has [email or web address], gas, oil, or water [email or web address] threatened to shut off services in your [...] Description 03/12/2025 8:30 AM EDT Office Visit [facility] PULMONARY & CRITICAL CARE MEDICINE [address] [place] [address] Rae Truong, NURSING CONSULTANT [address] [place] [address] 04/29/2025 9:30 AM EDT Office Visit [facility] FAMILY MEDICINE [address] [place] [phone] Fauzia Sterling MD [address] [place] [address] documented as of this encounter Goals Goal [...] documented as of this encounter Care Teams Fuel Efficient Aircraft Designer Relationship Specialty [place] [address] [place] [address] PCP - General Family Medicine 09/03/18 documented as of this encounter
--- OUTSIDE RECORDS SUMMARY | 2025-02-12 16:58 | XMS_ITS | Encounter Summary ---
[facility] Address [address] [place] [address] Care Team Providers Care [employer] Registrar Name Role Phone Fauzia Sterling MD Primary Care Provider [phone] Encounter Details Date Type Department Care Team (Late st Contact Info) Description 01/05/2025 Transitional Care Management Telephone Encounter [facility] [address] [place] [address] Derrick Parrish, RN Social History Tobacco Use Types Packs/Day Years Used Date Smoking Tobacco: Every Day Cigarettes 1 35 Passive Smoke Exposure: Current Smokeless Tobacco: Never Comments:Smoking 1-1 1/2 pac k a day Alcohol Use Standard Drinks/Week Comments No 0 (1 standard drink = 0.6 oz pur e alcohol) [facility] Utilities Answer Date Recorded In the past 12 months has [employer], gas, oil, or water [employer] threatened to shut off services in your [...] any time in the past 12 m [facility], were you homeless or living in a [...] encounter Miscellaneous Notes * Outreach Note - Derrick Parrish RN - 01/05/2025 12:31 PM EDT Images from the original note were not included. Call Center TCM Note Flowsheet Row Responses [facility] patient discharged from? [place] Does the patient have one of the following disease processes/diagnoses(primary or secondary)? COPD TCM attempt successful? Yes [Patient was seen in the PCP office today 01/[address] Sterling, PCP. Thisfulfils the TCM requirement. No phone call needed per unit protocol.] Discharge diagnosis COPD with acute exacerbation TCM call completed? Yes Would this patient benefit from a Referral to [facility] Social Work? No Is the patient interested in additional calls from an ambulatory returned case inspector? No Derrick Cazares - Registered Nurse 01/05/2025, 12:36 EDT documented in this encounter Plan of Treatment Upcoming Encounters Date Type Department Care Team (Late st Contact Info) Description 03/12/2025 8:30 AM EDT Office Visit [facility] PULMONARY & CRITICAL CARE MEDICINE [address] [place] [address] Rae Truong, PROJECT MANAGEMENT INSTRUCTOR [address] [place] [address] 04/29/2025 9:30 AM EDT Office Visit [facility] FAMILY MEDICINE [address] [address] Fauzia Sterling MD [address] [address] documented as of this encounter Goals Goal [...] documented as of this encounter Care Teams Elementary [employer] Registrar Relationship Specialty [place] [address] [place] [address] PCP - General Family Medicine 09/03/18 documented as of this encounter
--- OUTSIDE RECORDS SUMMARY | 2025-02-12 16:58 | XMS_ITS | Encounter Summary ---
[facility] Address [address] [place] [address] Care Team Providers Care Tool Maintenance Technician Name Role Phone Fauzia Sterling MD Primary Care Provider [phone] Encounter Details Date Type Department Care Team (Latest Contact Info) Description 01/06/2025 Patient Outreach [facility] CASE MANAGEMENT Arlene Shannon RN Anxiety (Primary Dx); COPD with exacerbation; Essential hypertension Social History Tobacco Use Types Packs/Day Years Used Date Smoking Tobacco: Every Day Cigarettes 1 35 Passive Smoke Exposure: Current Smokeless Tobacco: Never Comments:Smoking 1-1 1/2 pac k a day Alcohol Use Standard Drinks/Week Comments No 0 (1 standard drink = 0.6 oz pur e alcohol) [facility] Utilities Answer Date Recorded In the past 12 months has [employer] electric, gas, oil, or water company threatened [...] time in the past 12 m [facility], were you homeless or living in a fci (including now)? No 11/18/2024 Abuse Screen Answer [...] Outreach Note - Arlene Zapata RN - 01/06/2025 2:06 PM EDT AMBULATORY CASE MANAGEMENT NOTE Names and Relationships of Patient/Support Persons: Contact: Jesus Perales ; Relationship: Self - CCM Interim Update Spoke with patient as a CCM follow up call. He stated he is breathing a little better. He is now wearing oxygen at 3L continuous. He has all his medications. He reports cutting cigarettes to 1/2 ppd.Offered support with Aleisha, patient politely declined. Discussed importance of stopping cigarettes, patient voiced understanding. Pulmonology referrals pending. Encouraged patient to discuss pulmonary rehab with provider. He voiced understanding. Arlene Best Ambulatory Case Management 01/06/2025, 14:07 EDT documented in this encounter Plan of Treatment Upcoming Encounters Date Type Department Care Team (Late st Contact Info) Description 03/12/2025 8:30 AM EDT Office Visit [facility] PULMONARY & CRITICAL CARE MEDICINE [address] [place] [address] Rae Truong, FABRIC PATTERN GRADER [address] [place] [address] 04/29/2025 9:30 AM EDT Office Visit [facility] FAMILY MEDICINE [address] [address] Fauzia Sterling MD [address] [address] documented as of this encounter Goals Goal [...] documented as of this encounter Care Teams Tool Maintenance Technician Relationship Specialty [place] [address] [place] [place] [address] PCP - General Family Medicine 09/03/18 documented as of this encounter
--- OUTSIDE RECORDS SUMMARY | 2025-02-12 16:58 | XMS_ITS | Encounter Summary ---
[facility] Address [address] [place] [address] Care Team Providers Care Granulator Machine Operator Name Role Phone Fauzia Sterling MD Primary Care Provider [phone] Encounter Details Date Type Department Care Team (Latest Contact Info) Description 01/11/2025 Travel Social History Tobacco Use Types Packs/Day Years Used Date Smoking Tobacco: Every Day Cigarettes 1 35 Passive Smoke Exposure: Current Smokeless Tobacco: Never Comments:Smoking 1-1 1/2 pac k a day Alcohol Use Standard Drinks/Week Comments No 0 (1 standard drink = 0.6 oz pur e alcohol) [facility] Utilities Answer Date Recorded In the past 12 months has [employer], gas, oil, or water [employer] threatened to shut off services in your [...] any time in the past 12 m [place], were you homeless or living in a [place] health care facility (including now)? No 11/18/2024 Abuse Screen Answer [...] on file documented as of this encounter Functional Status * Calculated C-SSRS Risk Score (Lifetime/Recent) Answer Date of Assessment Author No Risk Indicated 01/11/2025 6:12 PM EDT Usha Hi RN * [place] Suicide Severity Rating Scale (Screener/Recent Self-Report) Question Answer Date of Assessment Author 1. Wish to be (Past 1 Month) No 025 6:12 PM EDT Usha Hi RN 2. Non-Specific Active Suici sean Thoughts (Past 1 Month) No 01/11/2025 6:12 PM EDT Susan Hi RN 6. Suicidal Behavior (Lifetime) No 6:12 PM EDT Usha Hi RN documented as of this encounter Plan of Treatment Upcoming Encounters Date Type Department Care Team (Late st Contact Info) Description 03/12/2025 8:30 AM EDT Office Visit [facility] PULMONARY & CRITICAL CARE MEDICINE [address] [place] [address] Rae Truong, TERMITE TREATER [address] [place] [address] 04/29/2025 9:30 AM EDT Office Visit [facility] FAMILY MEDICINE [address] [address] Fauzia Sterling MD [address] [address] documented as of this encounter Goals Goal [...] documented as of this encounter Care Teams Granulator Machine Operator Relationship Specialty Start Date End Date Fauzia Sterling MD [address] [place] [address] PCP - General Family Medicine 09/03/18 documented as of this encounter
--- OUTSIDE RECORDS SUMMARY | 2025-02-12 16:58 | XMS_ITS | Encounter Summary ---
[facility] Address [address] [place] [address] Care Team Providers Care Direct Sales Consultant Name Role Phone Fauzia Sterling MD Primary Care Provider [phone] Encounter Details Date Type Department Care Team (Late st Contact Info) Description 01/06/2025 Results Follow-Up [facility] FAMILY MEDICINE [address] [address] Fauzia Sterling MD [address] [address] Social History Tobacco Use Types Packs/Day Years Used Date Smoking Tobacco: Every Day Cigarettes 1 35 Passive Smoke Exposure: Current Smokeless Tobacco: Never Comments:Smoking 1-1 1/2 pac k a day Alcohol Use Standard Drinks/Week Comments No 0 (1 standard drink = 0.6 oz pur e alcohol) [facility] Utilities Answer Date Recorded In the past 12 months has [employer], gas, oil, or water [employer] threatened to shut off services in your [...] any time in the past 12 m [facility], were you homeless or [...] on file documented as of this encounter Progress Notes * Jose Zamora MA - 01/06/2025 1:09 PM EDT Called patient voiced understanding. * Fauzia Sterling MD - 01/06/2025 1:00 PM EDT Notify patient that repeat chest x-ray looks improved with no acute cardiopulmonary disease documented in this encounter Plan of Treatment Upcoming Encounters Date Type Department Care Team (Late st Contact Info) Description 03/12/2025 8:30 AM EDT Office Visit [facility] PULMONARY & CRITICAL CARE MEDICINE [address] [place] [address] Rae Truong, SALES MERCHANDISER [address] [place] [address] 04/29/2025 9:30 AM EDT Office Visit [facility] FAMILY MEDICINE [address] [phone] Fauzia Sterling MD [address] [address] documented as of this encounter Goals Goal [...] documented as of this encounter Care Teams Direct Sales Consultant Relationship Specialty Start Date End Date Fauzia Sterling MD [address] [address] PCP - General Family Medicine 09/03/18 documented as of this encounter
--- OUTSIDE RECORDS SUMMARY | 2025-02-12 16:58 | XMS_ITS | Encounter Summary ---
[facility] Address [address] [place] [address] Care Team Providers Care Tumbler Drier Operator Name Role Phone Fauzia Sterling MD Primary Care Provider [phone] Encounter Details Date Type Department Care Team (Latest Contact Info) Description 01/01/2025 Travel Social History Tobacco Use Types Packs/Day Years Used Date Smoking Tobacco: Every Day Cigarettes 1 35 Passive Smoke Exposure: Current Smokeless Tobacco: Never Comments:Smoking 1-1 1/2 pac k a day Alcohol Use Standard Drinks/Week Comments No 0 (1 standard drink = 0.6 oz pur e alcohol) [facility] Utilities Answer Date Recorded In the past 12 months has [employer], gas, oil, or water [employer] threatened to shut off services in your [...] were you homeless or living in a care home (including now)? No 11/18/2024 Abuse Screen [...] 9:33 AM EDT Rosio Rouse RN * [place] Suicide Severity Rating Scale (Screener/Recent Self-Report) Question Answer Date of Assessment Author 1. Wish to be (Past 1 Month) No 025 9:33 AM EDT Rosio Rouse RN 2. Non-Specific Active Suici sean Thoughts (Past 1 Month) No 01/01/2025 9:33 AM EDT Rosa Rouse RN 6. Suicidal Behavior (Lifetime) No 9:33 AM EDT Rosio Rouse RN documented as of this encounter Plan of Treatment Upcoming Encounters Date Type Department Care Team (Late st Contact Info) Description 03/12/2025 8:30 AM EDT Office Visit [facility] PULMONARY & CRITICAL CARE MEDICINE [address] [place] [address] Rae Truong, BIAS CUTTING MACHINE OPERATOR [address] [place] [address] 04/29/2025 9:30 AM EDT Office Visit [facility] FAMILY MEDICINE [address] [address] Fauzia Sterling MD [address] [address] documented as of this encounter Goals Goal [...] documented as of this encounter Care Teams Tumbler Drier Operator Relationship Specialty Start Date End Date Fauzia Sterling MD [address] [place] [address] PCP - General Family Medicine 09/03/18 documented as of this encounter
--- OUTSIDE RECORDS SUMMARY | 2025-02-12 16:58 | XMS_ITS | Encounter Summary ---
[facility] Address [address] [place] [address] Care Team Providers Care Final Finisher Name Role Phone Fauzia Sterling MD Primary Care Provider [phone] Encounter Details Date Type Department Care Team (Latest Contact Info) Description 01/20/2025 Patient Outreach [facility]NA[facility] Arlene Shannon RN Anxiety (Primary Dx); COPD with exacerbation; Essential hypertension Social History Tobacco Use Types Packs/Day Years Used Date Smoking Tobacco: Every Day Cigarettes 1 35 Passive Smoke Exposure: Current Smokeless Tobacco: Never Comments:Smoking 1-1 1/2 pac k a day Alcohol Use Standard Drinks/Week Comments No 0 (1 standard drink = 0.6 oz pur e alcohol) [facility] Utilities Answer Date Recorded In the past 12 months has [employer], gas, oil, or water company threatened [...] time in the past 12 m [facility], were you homeless or living in a [...] Outreach Note - Arlene Zapata RN - 01/20/2025 9:22 AM EDT [facility] End of Month Documentation This Chronic Medical Management Care Plan for Jesus Perales, 59 y.o. male, has been monitored and managed; reviewed and a new plan of care implemented for the month of December. A cumulative time of 35 minutes was spent on this patient record this month, including phone call with patient; chart review. Regarding the patient's problems: has Acute bronchitis; Arthritis; Reduced libido; Chronic deep vein thrombosis of lower extremity; Hematochezia; Gastroenteritis; Hematuria; Essential hypertension; Nocturia; Otitis media; Plantar fasciitis; Polyuria; Hypovolemia; Tobacco abuse; Dizziness; Nausea; Ch est pain on exertion; Obesity due to excess calories; Precordial chest pain; Anticoagulant long-term use; Carpal tunnel syndrome on both sides; Benign paroxysmal positional vertigo due to bilateral vestibular disorder; Hypokalemia; Acute gastritis without hemorrhage; Anxiety; Facial flushing; Nonintractable headache; Gastroesophageal reflux disease without esophagitis; Immunization due; Elevated glucose level; Left flank pain; Painful lumpy right breast; Abnormal stress test; Heart palpitations; Left upper quadrant pain; Pain of toe of right foot; Hyperhidrosis; Night sweats; Hypogonadism in male; BMI 38.0-38.9,adult; Polyarthritis; Right hip pain; Other fatigue; COPD with exacerbation; Flu-like symptoms; Colon cancer screening; Seasonal allergic rhinitis due to pollen; Dry eye; Pain of left thumb; Irregular sleep-wake rhythm, nonorganic origin; Polycythemia; Cervical disc disorder withmyelopathy of cervical region; COPD with acute exacerbation; Hospital discharge follow-up; Parainfluenza infection; and Requires supplemental oxygen on their problem list., the following items were addressed: medical records; medications and any changes can be found within the plan section of the note. A detailed listing of time spent for chronic care management is tracked within each outreach encounter. Current medications include: has a current medication list which includes the following pres cription(s): acetaminophen, amlodipine, aspirin, atorvastatin, buprenorphine- naloxone, buspirone, carvedilol, cetirizine, divalproex, escitalopram, ferrous sulfate, trelegy ellipta, hydroxyzine pamoate, ipratropium-albuterol, lactulose, lisinopril-hydrochlorothiazide, hypodermic needle, needle (disp), omeprazole, potassium chloride, ventolin hfa, warfarin, and warfarin. and the patient is reported to be patient is compliant with medication protocol. All notes on chart for PCP to review. The patient was monitored remotely for blood pressure; medications. The patient's physical needs include: medication education. The patient's mental support needs include: continued support The patient's cognitive support needs include: continued support The patient's psychosocial support needs include: continued support The patient's functional needs include: needs met The patient's environmental needs include: not applicable Care Plan overall comments: No data recorded Refer to previous outreach notes for more information on the areas listed above. Monthly Billing Diagnoses (F41.9) Anxiety (J44.1) COPD with exacerbation (I10) Essential hypertension Medications Medications have been reconciled Care Plan progress this month: Recently Modified Care Plans Updates made since 12/20/2024 12:00 AM No recently modified care plans. Current Specialty Plan of Care Status signed by both patient and provider Instructions Patient was provided an electronic copy of care plan CCM services were explained and offered and patient has accepted these services. Patient has given their written consent to receive CCM services and understands that this includes the authorization of electronic communication of medical information with the other treating providers. Patient understands that they may stop CCM services at any time and these changes will be effectiveat the end of the calendar month and will effectively revocate the agreement of CCM services. Patient understands that only one practitioner can furnish and be paid for CCM services during one calendar month. Patient also understands that there may be co-payment or deductible fees in association with CCM services. Patient will continue with at least monthly follow-up calls with the Ambulatory Search Strategist. Arlene Best Ambulatory Case Management 01/20/2025, 09:23 EDT documented in this encounter Plan of Treatment Upcoming Encounters Date Type Department Care Team (Late st Contact Info) Description 03/12/2025 8:30 AM EDT Office Visit [facility] PULMONARY & CRITICAL CARE MEDICINE [address] [place] [phone] Rae Truong, BUZZSAW OPERATOR HELPER [address] [place] [address] 04/29/2025 9:30 AM EDT Office Visit [facility]ILY MEDICINE [address] [facility] [address] [place] [address] Fauzia Sterling MD [address] [place] [address] documented as of this encounter Goals Goal [...] documented as of this encounter Care Teams Final Finisher Relationship Specialty Start Date End Date Fauzia Sterling MD [address] [place] [address] PCP - General Family Medicine 09/03/18 documented as of this encounter
--- OUTSIDE RECORDS SUMMARY | 2025-02-12 16:58 | XMS_ITS | Encounter Summary ---
[facility] Address [address] [place] [address] Care Team Providers Care City Routeman Name Role Phone Fauzia Sterling MD Primary Care Provider [phone] Reason for Visit * Reason Comments Med Refill Encounter Details Date Type Department Care Team (Late st Contact Info) Description 01/07/2025 Refill [facility] FAMILY MEDICINE [address] [address] Fauzia Sterling MD [address] [address] Gastroesophageal reflux disease without esophagitis Social History Tobacco Use Types Packs/Day Years Used Date Smoking Tobacco: Every Day Cigarettes 1 35 Passive Smoke Exposure: Current Smokeless Tobacco: Never Comments:Smoking 1-1 1/2 pac k a day Alcohol Use Standard Drinks/Week Comments No 0 (1 standard drink = 0.6 oz pur e alcohol) [facility] Utilities Answer Date Recorded In the past 12 months has [employer], gas, oil, or water [employer] threatened to shut off services in your [...] any time in the past 12 m [facility], were you homeless or living in a [...] Description 03/12/2025 8:30 AM EDT Office Visit [facility] PULMONARY & CRITICAL CARE MEDICINE [address] [place] [address] Rae Truong, SIMEON [address] [place] [address] 04/29/2025 9:30 AM EDT Office Visit [facility] FAMILY MEDICINE [address] [phone] Fauzia Sterling MD [address] [facility] [address] [place] [address] documented as of this encounter Goals Goal [...] as of this encounter Visit Diagnoses Diagnosis Gastroesophageal reflux disease without esophagitis Esophageal reflux documented in this encounter Additional Health Concerns Active Problems Noted Date Diagnosed Date Hypertension (Hypertension) 05/08/2024 Disease Progression (Hypertension) 05/08/2024 Resistant Hypertension (Hypertension) 05/08/2024 Infection Onset Date Last Indicated Resolved Time Other Comment:Parainfluenza 3 per RVP 01.01.2025 01/02/2025 01/02/2025 documented as of this encounter Care Teams City Routeman Relationship Specialty Start Date End Date Fauzia Sterling MD [address] [place] [address] PCP - General Family Medicine 09/03/18 documented as of this encounter
--- OUTSIDE RECORDS SUMMARY | 2025-02-12 16:58 | XMS_ITS | Encounter Summary ---
[facility] Address [address] [place] [address] Care Team Providers Care Commercial Artist Lettering Name Role Phone Fauzia Sterling MD Primary Care Provider [phone] Reason for Visit * Reason Onset Date Comments Med Management 01/06/2025 Encounter Details Date Type Department Care Team (Late st Contact Info) Description 01/06/2025 Telephone [facility] FAMILY MEDICINE [address] [address] [place] [address] [place] [address] Med Management Social History Tobacco Use Types Packs/Day Years Used Date Smoking Tobacco: Every Day Cigarettes 1 35 Passive Smoke Exposure: Current Smokeless Tobacco: Never Comments:Smoking 1-1 1/2 pac k a day Alcohol Use Standard Drinks/Week Comments No 0 (1 standard drink = 0.6 oz pur e alcohol) [facility] Utilities Answer Date Recorded In the past 12 months has [employer], gas, oil, or water company threatened to [...] any time in the past 12 m [facility], were you homeless or living in a [...] 6:12 PM EDT Usha Hi RN * [place] Suicide Severity Rating Scale (Screener/Recent Self-Report) Question Answer Date of Assessment Author 1. Wish to be (Past 1 Month) No 025 6:12 PM EDT Usha Hi RN 2. Non-Specific Active Suici sean Thoughts (Past 1 Month) No 01/11/2025 6:12 PM EDT Susan Hi RN 6. Suicidal Behavior (Lifetime) No 6:12 PM EDT Usha Hi RN documented as of this encounter Miscellaneous Notes * Telephone Encounter - Chet Baez LPN - 01/12/2025 4:45 PM EDT Patient notified of providers response message and verbalized understanding. * Telephone Encounter - Robert Jenkins RegSched Rep - 01/06/2025 4:23 PM EDT Caller: Jesus Perales Relationship: Self Best call back number: PATIENT WANTS TO KNOW HOW LONG HE NEEDS TO STAY ON THE NEBULIZER PLEASE CALL AND ADVISE documented in this encounter Plan of Treatment Upcoming Encounters Date Type Department Care Team (Late st Contact Info) Description 03/12/2025 8:30 AM EDT Office Visit [facility] PULMONARY & CRITICAL CARE MEDICINE [address] [place] [phone] Lorida, Rae W, RUBBER ATTACHER [address] [place] [address] 04/29/2025 9:30 AM EDT Office Visit [facility] FAMILY MEDICINE [address] [facility] [address] [place] [phone] Fauzia Sterling MD [address] [facility] [address] [place] [address] documented as of this encounter Goals Goal [...] Care Plan Resistant Hypertension (Hypertension) Claudia Ward, JAYCEE Note: Evidence-based guidance: Assess patient response [...] documented as of this encounter Care Teams Commercial Artist Lettering Relationship Specialty Start Date End Date Fauzia Sterling MD [address] [place] [address] PCP - General Family Medicine 09/03/18 documented as of this encounter
--- OUTSIDE RECORDS SUMMARY | 2025-02-12 16:58 | XMS_ITS | Encounter Summary ---
[facility] Address [address] [place] [address] Care Team Providers Care Sales Enablement Specialist Name Role Phone Fauzia Sterling MD Primary Care Provider [phone] Encounter Details Date Type Department Care Team (Late st Contact Info) Description 01/02/2025 Readmission Management [facility] [address] [place] [address] Avril Hopkins, RN Social History Tobacco Use Types Packs/Day Years Used Date Smoking Tobacco: Every Day Cigarettes 1 35 Passive Smoke Exposure: Current Smokeless Tobacco: Never Comments:Smoking 1-1 1/2 pac k a day Alcohol Use Standard Drinks/Week Comments No 0 (1 standard drink = 0.6 oz pur e alcohol) [facility] Utilities Answer Date Recorded In the past 12 months has [employer], gas, oil, or water [employer] threatened to shut off services in your [...] were you homeless or living in a [facility] (including now)? No 11/18/2024 Abuse Screen Answer [...] encounter Miscellaneous Notes * Outreach Note - Avril Hopkins RN - 01/02/2025 4:47 PM EDT Prep Survey Flowsheet Row Responses [facility] patient discharged from? [facility] Is LACE score < 7 ? Yes Eligibility [facility] Date of Admission 01/01/25 Date of Discharge 01/02/25 Discharge Disposition Home or Self Care Discharge diagnosis COPD with acute exacerbation Does the patient have one of the following disease processes/diagnoses(primary or secondary)? COPD Does the patient have Home health ordered? No Is there a DME ordered? Yes What DME was ordered? Home nebulizer, Oxygen Therapy Medication alerts for this patient see AVS Prep survey completed? Yes Avril R - Registered Nurse Avril R - Registered Nurse documented in this encounter Plan of Treatment Upcoming Encounters Date Type Department Care Team (Late st Contact Info) Description 03/12/2025 8:30 AM EDT Office Visit [facility] PULMONARY & CRITICAL CARE MEDICINE [address] [place] [phone] Rae Truong, SIMEON [address] [place] [address] 04/29/2025 9:30 AM EDT Office Visit [facility] FAMILY [facility]IC[facility] [address] [phone] Fauzia Sterling MD [address] [address] documented as of this encounter Goals Goal [...] documented as of this encounter Care Teams Sales Enablement Specialist Relationship Specialty Start Date End Date Fauzia Sterling MD [address] [place] [address] PCP - General Family Medicine 09/03/18 documented as of this encounter
--- OUTSIDE RECORDS SUMMARY | 2025-02-12 16:58 | XMS_ITS | Encounter Summary ---
Author Organization [facility] Address [address] [place] [address] Care Team Providers Care Buttermaker Name Role Phone Fauzia Sterling MD Primary Care Provider [phone] Reason for Visit * Reason Comments Med Refill Encounter Details Date Type Department Care Team (Late st Contact Info) Description 01/11/2025 Refill [facility] FAMILY MEDICINE [address] [address] Fauzia Sterling MD [address] [address] Essential hypertension Social History Tobacco Use Types Packs/Day Years Used Date Smoking Tobacco: Every Day Cigarettes 1 35 Passive Smoke Exposure: Current Smokeless Tobacco: Never Comments:Smoking 1-1 1/2 pac k a day Alcohol Use Standard Drinks/Week Comments No 0 (1 standard drink = 0.6 oz pur e alcohol) [facility] Utilities Answer Date Recorded In the past 12 months has [employer], gas, oil, or water [employer] threatened to shut off services in your [...] Risk Indicated 01/11/2025 6:12 PM EDT Usha iH RN * [place] Suicide Severity Rating Scale (Screener/Recent Self-Report) Question [...] Description 03/12/2025 8:30 AM EDT Office Visit [facility] PULMONARY & CRITICAL CARE MEDICINE [address] [place] [phone] Rae Truong, MARKET ASSET PROTECTION MANAGER [address] [place] [address] 04/29/2025 9:30 AM EDT Office Visit [facility] FAMILY MEDICINE [address] [phone] Fauzia Sterling MD [address] [address] documented as of this encounter Goals Goal [...] documented as of this encounter Care Teams Buttermaker Relationship Specialty Start Date End Date Fauzia Sterling MD [address] [place] [address] PCP - General Family Medicine 09/03/18 documented as of this encounter
--- OUTSIDE RECORDS SUMMARY | 2025-02-12 16:58 | XMS_ITS | Encounter Summary ---
[facility] Address [address] [place] [address] Care Team Providers Care Flag Signalman Name Role Phone Fauzia Sterling MD Primary Care Provider [phone] Encounter Details Date Type Department Care Team (Late st Contact Info) Description 01/26/2025 Refill [facility] [address] [address] Fauzia Sterling MD [address] [address] Anxiety Social History Tobacco Use Types Packs/Day Years Used Date Smoking Tobacco: Every Day Cigarettes 1 35 Passive Smoke Exposure: Current Smokeless Tobacco: Never Comments:Smoking 1-1 1/2 pac k a day Alcohol Use Standard Drinks/Week Comments No 0 (1 standard drink = 0.6 oz pur e alcohol) [facility] Utilities Answer Date Recorded In the past 12 months has [employer], gas, oil, or water [employer] threatened to shut off services in your [...] were you homeless or living in a residential (including now)? No 11/18/2024 Abuse Screen Answer [...] 8:30 AM EDT Office Visit [facility] [address] [place] [address] Rae Truong, INDUSTRIAL MAINTENANCE ELECTRICIAN [address] [place] [address] 04/29/2025 9:30 AM EDT Office Visit [facility] [address] [phone] Fauzia Sterling MD [address] [address] documented as of this encounter Goals Goal [...] as of this encounter Visit Diagnoses Diagnosis Anxiety Anxiety state, unspecified documented in this encounter Additional Health Concerns Active Problems Noted Date Diagnosed Date Hypertension (Hypertension) 05/08/2024 Disease Progression (Hypertension) 05/08/2024 Resistant Hypertension (Hypertension) 05/08/2024 Infection Onset Date Last Indicated Resolved Time Other Comment:Parainfluenza 3 per RVP 01.01.2025 01/02/2025 01/02/2025 documented as of this encounter Care Teams Flag Signalman Relationship Specialty Start Date End Date Fauzia Sterling MD [address] [place] [address] PCP - General Family Medicine 09/03/18 documented as of this encounter
--- OUTSIDE RECORDS SUMMARY | 2025-02-12 16:59 | XMS_ITS | Encounter Summary ---
Author Organization [employer] ([place], [place], [place], [place]) Address [address] [place] [address] Care Team Providers Care Emission Technician Name Role Phone Unavailable Primary Care Provider Unavailabl e Encounter Details Date Type Department Care Team (Late st Contact Info) Description 11/12/2018 Transcribed Document [facility] [place] [address] ProviderJulito MD [address] [place] [id number] Social History Tobacco Use Types Packs/Day Years Used Date Smoking Tobacco: Never Assessed Comments Unknown Sex and Gender Information Value Date Recorded Sex Assigned at Unknown 01/19/2022 4:47 PM CDT Legal Sex Male 6:33 PM CDT Gender Identity Not on file Sexual Orientation Not on file documented as of this encounter Miscellaneous Notes * Cerner Conversion Note - Julito Martin MD - 11/12/2018 11:39 AM CDT Patient: ODETTE ROBERTSON Age: 52 years Sex: Male : 1965 Associated Diagnoses: Chest pain Author: BUDDY ROSENBERG MD Basic Information Additional information: Chief Complaint from Nursing Triage Note : Chief Complaint 11/12/2018 11:11 EDT Chief Complaint Small burning pain in epigastric area since last night. Has hx of GERD. . History of Present Illness The patient presents with chest pain. The onset was 1 days ago. The course/duration of symptoms is episodic: with multiple episodes and lasting 5 minutes. Location: substernal. Radiating pain: none. The character of symptoms is burning. The degree at onset was moderate. The degree at maximum was severe. The degree at present is minimal. The exacerbating factor is none. The relieving factor is none. Risk factors consist of pulmonary embolism. Prior episodes: non-cardiac. Therapy today None. Associated symptoms: denies shortness of breath, denies nausea, denies vomiting, denies diaphoresis, denies anxiety and denies palpitations. Review of Systems Constitutional symptoms: Negative except as documented in HPI. Skin symptoms: Negative except as documented in HPI. Eye symptoms: Negative except as documented in HPI. ENMT symptoms: Negative except as documented in HPI. Respiratory symptoms: Negative except as documented in HPI. Cardiovascular symptoms: Negative except as documented in HPI. Gastrointestinal symptoms: Negative except as documented in HPI. Genitourinary symptoms: Negative except as documented in HPI. Musculoskeletal symptoms: Negative except as documented in HPI. Neurologic symptoms: Negative except as documented in HPI. Psychiatric symptoms: Negative except as documented in HPI. Endocrine symptoms: Negative except as documented in HPI. Hematologic/Lymphatic symptoms: Negative except as documented in HPI. Allergy/immunologic symptoms: Negative except as documented in HPI. Additional review of systems information: All other systems reviewed and otherwise negative. Health Status Allergies: Allergic Reactions (Selected) Severity Not Documented Penicillin- No reactions were documented.. Past Medical/ Family/ Social History Surgical history: No active procedure history items have been selected or recorded.. Family history: No family history items have been selected or recorded.. Social history: Social & Psychosocial Habits No Data Available . Physical Examination Vital Signs Vital Signs/Vital Measures 11/12/2018 11:11 EDT Temperature Source Oral Temperature Mode Fahrenheit Temperature, Fahrenheit 98.4 Deg F Clinical Temperature, C 36.9 Deg C Peripheral Pulse Rate 68 bpm Respiratory Rate 16 Breaths/Min Systolic Blood Pressure 146 mmHg HI Diastolic Blood Pressure 78 mmHg Oxygen Saturation 94 % Oxygen Therapy Mode Room air . Measurements 11/12/2018 11:11 EDT Height Source Stated Height Entry Format Keystone Height/Length, FAROESE (ft) 5 ft Height/Length FAROESE 10 Inch CLINICALHEIGHT 177.8 cm [place] Body Weight 72.02 kg Weight Source, ED Critical estimated dosing weight Weight Entry Format Keystone Weight [place] lb 232 lb CLINICALWEIGHT 105.45 kg Body Surface Area (BSA) 2.23 m2 Body Mass Index 33.4 kg/m2 HI . Oxygen Saturation 11/12/2018 11:11 EDT Oxygen Saturation 94 % . General: Alert, no acute distress. Skin: Warm, dry, pink. Head: Normocephalic, atraumatic. Neck: Supple. Eye: Pupils are equal, round and reactive to light, extraocular movements are intact, normal conjunctiva. Cardiovascular: Regular rate and rhythm, No murmur. Respiratory: Lungs are clear to auscultation, respirations are non-labored, breath sounds are equal, Symmetrical chest wall expansion. Chest wall: No tenderness. Back: Nontender. Musculoskeletal: Normal ROM. Gastrointestinal: Soft, Nontender, Non distended, Normal bowel sounds, No organomegaly. Neurological: Alert and oriented to person, place, time, and situation, No focal neurological deficit observed, CN II-XII intact, normal sensory observed, normal motor observed, normal speech observed, normal coordination observed. Lymphatics: No lymphadenopathy. Medical Decision Making Differential Diagnosis: Unstable angina, angina, anxiety, pulmonary embolism, atypical chest pain, gastroesophageal reflux disease, pleurisy. Electrocardiogram: Rate 80, normal sinus rhythm, No ST changes, no ectopy, normal WV & QRS intervals, EP Interp. nurse monitoring: Rate 80, normal sinus rhythm. Results review: All Results 11/12/2018 12:15 EDT ED Nursing Record (Modified) 11/12/2018 11:39 EDT ED Physician Notes Chest pain (In Progress) 11/12/2018 11:32 EDT CR Chest 1 Vw Portable REPORT (In Progress) 11/12/2018 11:11 EDT ED Nursing Record Consent Forms Consent Forms 11/12/2018 11:10 EDT Preferred Language Form Preferred Language Form 11/12/2018 12:27 EDT Estimated Creatinine Clearance 93.84 mL/Min 11/12/2018 12:15 EDT Level of Consciousness Alert, Awake Orientation Oriented x 4 Affect/Behavior Cooperative Cardiovascular Assessment WDL WDL with exceptions Cardiovascular Symptoms Other: Burning in the middle of chest. Heart Rhythm Regular Nail Bed Color [place] Edema Comment. . Gastrointestinal Assessment WDL WDL with exceptions Gastrointestinal Symptoms Epigastric Pain Gastrointestinal Assessment Comment Pt. reports that he is having burning and discomfort in the middle of his chest since last night. Takes medication for GERD. Skin Description Dry Skin Temperature Warm Communication Barrier None EKG Completed by Dylan Quick, Emergency Room Certified Nurses Aide EKG Time Completed 11/12/2018 11:25 EKG Communicated to Provider BUDDY ROSENBERG MD EKG Time Communicated to Provider 11/12/2018 11:25 Primary Language Wolof Information Obtained From Patient Smoking Status 4 or less cigarettes(less than 1/4 pack)/day in last 30 days Desires Tobacco Cessation Medication No Smokeless Tobacco Status Never Any Spiritual/Cultural Needs or Requests No Currently in Unsafe Situation No 11/12/2018 12:10 EDT Sodium Level 138 mmol/L Potassium Level 5.2 mmol/L HI Chloride Level 103 mmol/L Carbon Dioxide Level 28 mmol/L Anion Gap 12 Glucose Level 105 mg/dL Blood Urea Nitrogen 19 mg/dL HI Creatinine Level 0.94 mg/dL eGFR 102 mL/min/1.73m2 eGFR NonAfrican 84 mL/min/1.73m2 Bun/Creatinine 20.213 NA Calcium Level 9.0 mg/dL Protein Total 7.5 Gram/dL Albumin Level 3.4 Gram/dL Globulin 4.1 Gram/dL A/G Ratio 0.8 LOW Bilirubin Total 0.5 mg/dL Alk Phos 90 Units/Liter AST 38 Units/Liter HI ALT 20 Units/Liter Amylase Level 37 Units/Liter Lipase Level 98 Units/Liter Troponin I Ultra <0.017 ng/mL WBC 8.8 K/uL RBC 4.91 Million/uL Hgb 14.8 Gram/dL Hct 41.3 % MCV 84.1 fL MCH 30.1 pg MCHC 35.8 Gram/dL Platelet Count 231 K/uL MPV 9.1 fL LOW RDW 12.4 % Slide Review No PT 24.5 Second(s) HI INR 2.5 HI ABCs Fall Injury Risk Identification None URIAS Hx Falls Immediate/Within 3 Months No Urias Secondary Diagnosis No URIAS Ambulatory Aid None Urias IV Therapy or IV Access Yes Urias Gait/Transferring Normal, bedrest, immobile URIAS Mental Status Oriented to own ability Urias Fall Risk Score 20 Urias Fall Scale Risk Level 0-24 Low Risk [place] Fall Interventions Adequate lighting, Assistive devices within reach, Bed in low position, Call device within reach, Upper side-rails up, Wheels locked 11/12/2018 12:05 EDT Al hydroxide/Mg hydroxide/simethicone 30 mL mL lidocaine topical 15 mL mL Sodium Chloride 0.9% Begin Bag 1,000 mL mL sucralfate 1 Gram Gram 11/12/2018 12:00 EDT 11/12/2018 12:00 Over the needle Hand Right 22 gauge Peripheral Catheter/Needle Length: 1 Inch Peripheral IV Activity: Blood drawn with insertion, Saline lock Peripheral IV Site Assessment: IV site WDL Peripheral IV Infiltration Score: 0 Peripheral IV Phlebitis Score: 0 IV Site/Line Care: Protective dressing applied IV Dressing Activity: Applied Peripheral IV Dressing: Non-allergic adhesive dressing, Occlusive Peripheral IV Dressing Condition: Dry, Intact 11/12/2018 11:38 EDT Nurse Collect Order Detail 3.00 11/12/2018 11:36 EDT Nurse Collect Order Detail 3.00 11/12/2018 11:35 EDT Nurse Collect Order Detail 3.00 11/12/2018 11:35 EDT Nurse Collect Order Detail 3.00 11/12/2018 11:26 EDT Nurse Collect Order Detail 3.00 11/12/2018 11:24 EDT Nurse Collect Order Detail 3.00 11/12/2018 11:24 EDT Nurse Collect Order Detail 3.00 11/12/2018 11:17 EDT Estimated Creatinine Clearance 110.26 mL/Min 11/12/2018 11:11 EDT Temperature Source Oral Temperature Mode Fahrenheit Temperature, Fahrenheit 98.4 Deg F Clinical Temperature, C 36.9 Deg C Peripheral Pulse Rate 68 bpm Respiratory Rate 16 Breaths/Min Systolic Blood Pressure 146 mmHg HI Diastolic Blood Pressure 78 mmHg Oxygen Saturation 94 % Oxygen Therapy Mode Room air Height Source Stated Height Entry Format [facility] Height/Length, FAROESE (ft) 5 ft Height/Length FAROESE 10 Inch CLINICALHEIGHT 177.8 cm [place] Body Weight 72.02 kg Weight Source, ED Critical estimated dosing weight Weight Entry Format [facility] Weight [place] lb 232 lb CLINICALWEIGHT 105.45 kg Body Surface Area (BSA) 2.23 m2 Body Mass Index 33.4 kg/m2 HI Pain Assessment Initial assessment Pain Scale Used 0-10 Scale Pain Intensity 1 Pain Location Epigastric Pain Quality Burning Pain Onset Gradual Tuberculosis Symptoms None Infectious Disease History None Fever/Chills Last 48 Hours No Travel To Regions with Travel Advisories No Travel Outside [place] Within Last 30 Days No Contact With Traveler to Advisory Region No Chief Complaint Small burning pain in epigastric area since last night. Has hx of GERD. Transported to ED by Private vehicle To Room Via Ambulate Tracking Acuity 3 - Urgent Accompanied by Unaccompanied Mode of Arrival Ambulatory Tetanus Immunization Greater than 5 years 11/12/2018 11:08 EDT Nurse Collect Order Detail 3.00 Nurse Collect Order Detail 3.00 . Chest X-Ray: No acute disease process, interpretation by Emergency Physician. Impression and Plan Diagnosis Chest pain - Discharge, Emergency medicine, Medical Plan Condition: Improved, Stable, Pain resolved with GI cocktail. Disposition: Discharged Admit/Transfer/Discharge: Discharge (Order): Start: 11/12/2018 12:38 EDT, Discharge to: Home. Prescriptions: Prescription [facility]: Carafate 1 g oral tablet (Prescribe): 1 Tab, Oral, BID, for 30 Day(s), 60 Tab, 0 Refill(s). Patient was given the following educational materials: Nonspecific Chest Pain. Limitations: Limited activity. Follow up with: DOMINGA WHYTE Within 2 to 3 days. Counseled: Patient, Regarding diagnosis, Regarding diagnostic results, Regarding treatment plan, Regarding prescription, Patient indicated understanding of instructions. documented in this encounter Plan of Treatment Not on file documented as of this encounter Visit Diagnoses Not on filedocumented in this encounter
--- OUTSIDE RECORDS SUMMARY | 2025-02-12 16:59 | XMS_ITS | Encounter Summary ---
[facility] Address [address] [place] [address] Care Team Providers Care Greenhouse Specialist Name Role Phone Fauzia Sterling MD Primary Care Provider [phone] Reason for Visit * Reason Comments Med Refill Encounter Details Date Type Department Care Team (Late st Contact Info) Description 12/14/2024 Refill [facility] [address] [phone] Fauzia Sterling MD [address] [address] COPD with exacerbation Social History Tobacco Use Types Packs/Day Years Used Date Smoking Tobacco: Every Day Cigarettes 1 35 Passive Smoke Exposure: Current Smokeless Tobacco: Never Comments:Smoking 1-1 1/2 pac k a day Alcohol Use Standard Drinks/Week Comments No 0 (1 standard drink = 0.6 oz pur e alcohol) [facility] Utilities Answer Date Recorded In the past 12 months has [employer], gas, oil, or water company threatened [...] time in the past 12 m [facility], were you homeless or living in [...] [facility] [address] [place] [phone] Rae Truong, POULTRY SLAUGHTERER [address] [place] [address] 04/29/2025 9:30 AM EDT Office Visit [facility] [address] [facility] [address] [place] [address] Fauzia Sterling MD [address] [place] [address] documented as of this encounter Goals Goal [...] documented as of this encounter Care Teams Greenhouse Specialist Relationship Specialty Start Date End Date Fauzia Sterling MD [address] [place] [address] PCP - General Family Medicine 09/03/18 documented as of this encounter
--- OUTSIDE RECORDS SUMMARY | 2025-02-12 16:59 | XMS_ITS | Encounter Summary ---
[facility] Address [address] [place] [address] Care Team Providers Care Computer Analyst Name Role Phone Fauzia Sterling MD Primary Care Provider [phone] Encounter Details Date Type Department Care Team (Late st Contact Info) Description 12/22/2024 Results Follow-Up [facility] [address] [place] [phone] Macarena Chin PA-C [address] [address] Social History Tobacco Use Types Packs/Day Years Used Date Smoking Tobacco: Every Day Cigarettes 1 35 Passive Smoke Exposure: Current Smokeless Tobacco: Never Comments:Smoking 1-1 1/2 pac k a day Alcohol Use Standard Drinks/Week Comments No 0 (1 standard drink = 0.6 oz pur e alcohol) [facility] Utilities Answer Date Recorded In the past 12 months has [employer], gas, oil, or water [employer] threatened to shut off services in your [...] [facility] [address] [place] [phone] Rae Truong, POLISHER DIAL [address] [place] [address] 04/29/2025 9:30 AM EDT Office Visit [facility] [facility] [place] [phone] Fauzia Sterling MD [address] [place] [address] documented as of this encounter Goals Goal [...] Monitored Care Plan Hypertension (Hypertension) Claudia Ward, RN Note: Evidence-based guidance: Promote initial use [...] documented as of this encounter Care Teams Computer Analyst Relationship Specialty Start Date End Date Fauzia Sterling MD [address] [place] [address] PCP - General Family Medicine 09/03/18 documented as of this encounter
--- OUTSIDE RECORDS SUMMARY | 2025-02-12 16:59 | XMS_ITS | Encounter Summary ---
Author Organization [facility] Address [address] [place] [address] Care Team Providers Care Lace Stripper Name Role Phone Fauzia Sterling MD Primary Care Provider [phone] Reason for Visit * Reason Comments Med Refill Encounter Details Date Type Department Care Team (Late st Contact Info) Description 12/18/2024 Refill [facility] [address] [phone] RhodaFabiola, MANAGER PROGRESSIVE CARE [address] [place] [address] Med Refill Social History Tobacco Use Types Packs/Day Years Used Date Smoking Tobacco: Every Day Cigarettes 1 35 Passive Smoke Exposure: Current Smokeless Tobacco: Never Comments:Smoking 1-1 1/2 pac k a day Alcohol Use Standard Drinks/Week Comments No 0 (1 standard drink = 0.6 oz pur e alcohol) [facility] Utilities Answer Date Recorded In the past 12 months has [employer], gas, oil, or water company threatened [...] any time in the past 12 m [facility], were you homeless or living in [...] & CRITICAL CARE MEDICINE [address] [place] [phone] Rae Truong, SIMEON [address] [place] [address] 04/29/2025 9:30 AM EDT Office Visit [facility] [address] [place] [address] Fauzia Sterling MD [address] [place] [address] documented as of this encounter Goals Goal [...] documented as of this encounter Care Teams Lace Stripper Relationship Specialty Start Date End Date Fauzia Sterling MD [address] [place] [address] PCP - General Family Medicine 09/03/18 documented as of this encounter
--- OUTSIDE RECORDS SUMMARY | 2025-02-12 16:59 | XMS_ITS | Encounter Summary ---
[facility] Address [address] [place] [address] Care Team Providers Care Non Food Receiving Clerk Name Role Phone Fauzia Sterling MD Primary Care Provider [phone] Encounter Details Date Type Department Care Team (Late st Contact Info) Description 11/05/2024 Results Follow-Up [facility] [address] [facility] [address] [place] [address] RhodaFabiola, PROBATION AND PAROLE OFFICER [address] [facility] [address] [place] [address] Social History Tobacco Use Types Packs/Day Years [...] 0 04/03/2023 Abuse Screen Answer Date Recorded Feels Unsafe at Home or Work/School no 05/07/2024 Feels Threatened by Someone no 04/22 Does Anyone Try to Keep You From Having Contact with Others or Doing Things Outside Your Home? no 05/07/2024 Physical Signs of Abuse Present no 05/07/2024 Housing Stability Answer Date Recorded Current Living Arrangements home 04/22 Potentially Unsafe Housing Conditions Not on fawn e 05/08/2024 PHQ-2 Answer Date Recorded Patient Health Questionnaire-9 Score 0 10/14/2024 Sex and Gender Information Value Date Recorded Sex Assigned at Not on file Legal Sex Male 12:07 PM EDT Gender Identity Not on file Sexual Orientation Not on file documented as of this encounter Progress Notes * Fabiola Duong APRN - 11/05/2024 7:24 AM EDT Your cholesterol looks good! Continue current medications documented in this encounter Plan of Treatment Upcoming Encounters Date Type Department Care Team (Late st Contact Info) Description 03/12/2025 8:30 AM EDT Office Visit [facility] [address] [place] [address] Rae Truong APRN [address] [place] [address] 04/29/2025 9:30 AM EDT Office Visit [facility] [address] [phone] Fauzia Sterling MD [address] [address] documented as of this encounter Goals Goal [...] documented as of this encounter Care Teams Non Food Receiving Clerk Relationship Specialty Start Date End Date Fauzia Sterling MD [address] [place] [address] PCP - General Family Medicine 09/03/18 documented as of this encounter
--- OUTSIDE RECORDS SUMMARY | 2025-02-12 16:59 | XMS_ITS | Encounter Summary ---
[facility] Address [address] [place] [address] Care Team Providers Care Repairer Controller Tester Name Role Phone Fauzia Sterlnig MD Primary Care Provider [phone] Reason for Visit * Reason Comments Med Refill Encounter Details Date Type Department Care Team (Late st Contact Info) Description 06/16/2024 Refill [facility] [address] [phone] Fauzia Sterling MD [address] [address] Social History Tobacco Use Types [...] fawn e 05/08/2024 PHQ-2 Answer Date Recorded Retired PHQ-9: Brief [...] 8:30 AM EDT Office Visit [facility] [address] [place] [phone] Rae Truong, HEAVY LIFT RIGGER [address] [place] [address] 04/29/2025 9:30 AM EDT Office Visit [facility] [address] [facility] [address] [place] [phone] Fauzia Sterling MD [address] [facility] [address] [place], [place] [phone] documented as of this encounter Goals Goal [...] documented as of this encounter Care Teams Repairer Controller Tester Relationship Specialty Start Date End Date Fauzia Sterling MD [address] [address] PCP - General Family Medicine 09/03/18 documented as of this encounter
--- OUTSIDE RECORDS SUMMARY | 2025-02-12 16:59 | XMS_ITS | Encounter Summary ---
Author Organization [facility] Address [address] [place] [address] Care Team Providers Care Pressure Dispatcher Name Role Phone Fauzia Sterling MD Primary Care Provider [phone] Reason for Visit * Reason Comments Med Refill Encounter Details Date Type Department Care Team (Late st Contact Info) Description 12/16/2024 Refill [facility] [address] [address] Fauzia Sterling MD [address] [address] Essential hypertension Social History Tobacco Use Types Packs/Day Years Used Date Smoking Tobacco: Every Day Cigarettes 1 35 Passive Smoke Exposure: Current Smokeless Tobacco: Never Comments:Smoking 1-1 1/2 pac k a day Alcohol Use Standard Drinks/Week Comments No 0 (1 standard drink = 0.6 oz pur e alcohol) [facility] Utilities Answer Date Recorded In the past [address] [employer] [address] [employer], gas, oil, or water [employer] threatened to shut off services in your [...] time in the past 12 m [facility], were you homeless or living in a [...] Description 03/12/2025 8:30 AM EDT Office Visit [facility] PUL[facility] & [facility]ICAL [facility]ARE MEDICINE [address] [place] [address] Rae Truong, UNIX MANAGER [address] [place] [address] 04/29/2025 9:30 AM EDT Office Visit [facility] [address] [facility] [address] [place] [address] Fauzia Sterling MD [address] [place] [address] documented as of this encounter Goals Goal [...] documented as of this encounter Care Teams Pressure Dispatcher Relationship Specialty Start Date End Date Fauzia Sterling MD [address] [place] [address] PCP - General Family Medicine 09/03/18 documented as of this encounter
--- OUTSIDE RECORDS SUMMARY | 2025-02-12 16:59 | XMS_ITS | Encounter Summary ---
[facility] Address [address] [place] [address] Care Team Providers Care Capital Campaign Fundraiser Name Role Phone Fauzia Sterling MD Primary Care Provider [phone] Encounter Details Date Type Department Care Team (Late st Contact Info) Description 12/31/2024 Anticoagulation Visit [facility] [address] [facility] [address] [place] [address] Angelica Valenzuela, Color Expert Social History Tobacco Use Types Packs/Day Years Used Date Smoking Tobacco: Every Day Cigarettes 1 35 Passive Smoke Exposure: Current Smokeless Tobacco: Never Comments:Smoking 1-1 1/2 pac k a day Alcohol Use Standard Drinks/Week Comments No 0 (1 standard drink = 0.6 oz pur e alcohol) [facility] Utilities Answer Date Recorded In the past 12 months has [employer], gas, oil, or water [employer] threatened to shut off services in your [...] any time in the past 12 m [facility], were you homeless or living in a senior living (including now)? No 11/18/2024 Abuse Screen Answer [...] as of this encounter Progress Notes * Angelica Valenzuela, Color Expert - 12/31/2024 1:53 PM EDT Anticoagulation Clinic - Remote Progress Note REMOTE LAB Indication: hx of multiple DVT (3x); mildly decreased antithrombin III level Referring Provider: Fauzia Sterling MD (last seen 11/13/2023) Initial Warfarin Start Date: ~2006 Goal INR: 2.0-3.0 Current Drug Interactions: Lexapro, omeprazole, ASA Other: solitary kidney (Lovenox in 2011); hx of hematochezia Diet: 2-3x week, lettuce on sandwich, green peppers, green beans; occasionally broccoli (04/16/2023) Alcohol: None Tobacco: 1-1.5ppd 04/11/23 OTC Pain Medication: APAP INR History: Date 07/29/1808/22 Total WeeklyDose 55mg 65mg 65mg 65mg 65mg 65mg 65mg 65mg 65mg INR 2.1 2.1 3.1 2.5 2.7 3.1 2.87 3.2 2.7 2.95 2.52 3.13 Notes recv'd 05/23; zpak Date 06/0908/25/1909/21 Total WeeklyDose 65mg 60mg 60mg 60mg 60mg 60mg 60mg 60mg 60mg 60mg 65mg? 60mg INR 3.71 3.34 2.78 2.29 2.92 3.26 2.7 3.01 2.69 2.25 3.57 2.61 Notes low-carb diet hematuria incorrect extra dose Date 04/0508/06/2008/13 Total WeeklyDose 60mg 60mg 60mg 60mg 60mg 65mg 60mg 60mg 60mg 60mg 60mg 60mg INR 2.67 protime >120, unable to calc INR 2.81 [employer] INFORMATION CLERK 3.4 POCT 3.02 3.01 3.39 2.55 2.05 3.16 2.62 2.76 2.24 Notes rec 05/12 suspected lab error fall misdose ED visit doxy doxy Date 01/0408/22/2109/26 Total Weekly Dose 60mg 60mg 60mg 60mg 60mg 60mg 60mg 60mg 60mg 60mg 60 mg 60mg INR 2.69 2.45 2.17 2.71 2.64 3.03 1.99 2.11 2.28 2.32 2.2 2.3 Notes recv'd 05/09 clinda incr GLV Date 01/1012/19/2201/26 Total Weekly Dose 60mg 60 mg 60mg 60mg 60 mg 60 mg 60 mg 60 mg 60 mg 60 mg 60 mg 60 mg INR 2.67 2.91 2.61 2.57 2.7 3.04 2.45 2.25 2.15 2.59 2.34 2.16 Notes Doxy Doxy steroid Date 02/19/2304/0304/20/2304/2307/24/23 Total WeeklyDose 60 mg 60 mg 60mg 55mg 50 mg 50 mg 60 mg 60 mg 60 mg 60 mg 60 mg 60 mg INR 2.57 2.87 3.87 4.3 1.95 2.84 2.56 2.14 2.32 2.31 3.0 3.37 Notes Doxy, pred Doxy, pred Rcv'd 04/16; ED;holdx1 1x hold testosterone Overdue less GLV Date 08/17 09/23 10/18 11/04 11/11 12/19 12/27 01/02 01/09 01/27 Total Weekly Dose 60mg 60mg 60 mg 60 mg 60 mg 60 mg 55 mg 60 mg 60 mg 60 mg INR 2.17 3.21 2.17 2.86 2.54 3.11 2.02 3.09 2.46 2.87 Notes Rec 08/20 1x dose reduction + GLV 12/19 Date 03/0308/25/2409/16 Total Weekly Dose 60mg 60mg 60mg 55mg 55 mg 55 mg 55 mg 55 mg 55 mg 55 mg INR 3.55 3.28 3.24 2.59 3.8 2.9 2.55 2.15 2.77 2.45 Notes Date 10/28 12/30 Total Weekly Dose 55 mg 55 mg INR 2.22 2.02 Notes Rec'd 12/31 *takes medication in the morning* Phone Interview: Verbal Release Authorization signed on 10/14/2018 -- may speak with Jim Perales (brother); Victor Hugo Perales Jr (son) Tablet Strength: 5mg and 10mg tablets (07/21/21) Patient Contact Info: [phone] (mobile) Lab Contact Info: JEZ Bueno Patient Findings Positives: Change in health, Emergency department visit, Change in medications Negatives: Signs/symptoms of thrombosis, Signs/symptoms of bleeding, Laboratory test error suspected, Change in alcohol use, Change in activity, Upcoming invasive procedure, Upcoming dental procedure, Missed doses, Extra doses, Change in diet/appetite, Hospital admission, Bruising, Other complaints Comments: Patient was seen in [facility] ED yesterday for COPD exacerbation. Prescribeda Z-Jose and prednisone 20 mg 2 tablets po q.d. x 5 days. All other findings negative per patient. Plan: INR was therapeutic yesterday at 2.02 (goal 2.0-3.0). Instructed Mr. Perales to continue warfarin 10 mg daily except 5 mg Tu/Th/Sat until recheck. Repeat INR in 1 week, 6.16.25 Verbal information provided over the phone. Jesus Perales RBV dosing instructions, expresses understanding by teach back, and has no further questions at this time. Angelica Valenzuela CPhT, RPhT 14:04 EDT 12/31/2024 I, Christelle Mujica, PharmD, have reviewed the note in full and agree with the assessment and plan. 12/31/24 14:21 EDT documented in this encounter Plan of Treatment Upcoming Encounters Date Type Department Care Team (Late st Contact Info) Description 03/12/2025 8:30 AM EDT Office Visit [facility] PULMON[facility] & CRITICAL CARE MEDICINE [address] [facility] [place] [address] Rae Truong, SUPERVISOR PAINTING [address] [place] [address] 04/29/2025 9:30 AM EDT Office Visit [facility] [address] [phone] Fauzia Sterling MD [address] [facility] [address] [place] [address] documented as of this encounter Goals Goal [...] documented as of this encounter Care Teams Capital Campaign Fundraiser Relationship Specialty Start Date End Date Fauzia Sterling MD [address] [place] [address] PCP - General Family Medicine 09/03/18 documented as of this encounter
--- OUTSIDE RECORDS SUMMARY | 2025-02-12 16:59 | XMS_ITS | Encounter Summary ---
[facility] Address [address] [place] [address] Care Team Providers Care Senior Product Development Scientist Name Role Phone Fauzia Sterling MD Primary Care Provider Reason for Visit * Reason Onset Date Comments Med Refill 12/30/2024 Encounter Details Date Type Department Care Team (Late st Contact Info) Description 12/30/2024 Telephone [facility] [address] [address] Fauzia Sterling MD [address] [place] [address] Med Refill Social History Tobacco Use Types Packs/Day Years Used Date Smoking Tobacco: Every Day Cigarettes 1 35 Passive Smoke Exposure: Current Smokeless Tobacco: Never Comments:Smoking 1-1 1/2 pac k a day Alcohol Use Standard Drinks/Week Comments No 0 (1 standard drink = 0.6 oz pur e alcohol) [facility] Utilities Answer Date Recorded In the past 12 months has [employer], gas, oil, or water company threatened [...] any time in the past 12 m [facility], were you homeless or [...] Indicated 12/30/2024 9:53 AM EDT Yoni Bobby, JAYCEE * [place] Suicide Severity Rating Scale (Screener/Recent Self-Report) Question Answer Date of Assessment Author 1. Wish to be (Past 1 Month) No 025 9:53 AM EDT Yoni Bobby, JAYCEE 2. Non-Specific Active Suici sean Thoughts (Past 1 Month) No 12/30/2024 9:53 AM EDT Blayne Bobby RN 6. Suicidal Behavior (Lifetime) No 9:53 AM EDT Yoni Bobby RN documented as of this encounter Progress Notes * Chet Reyes LPN - 12/30/2024 2:34 PM EDTAddended by: CHET REYES on: 12/30/2024 02:34 PM Modules accepted: Orders documented in this encounter Miscellaneous Notes * Telephone Encounter - Kavya Casarez RegSched Rep - 12/30/2024 3:35 PM EDT Name: Jesus Perales Victor Hugo Relationship: Self Best Callback Number: [phone] HUB PROVIDED THE RELAY MESSAGE FROM THE OFFICE PATIENT: VOICED UNDERSTANDING AND HAS NO FURTHER QUESTIONS AT THIS TIME ADDITIONAL INFORMATION: SPOKE TO PT AND WILL WILL CALL THEM AND LET THEM KNOW BENJAMIN * Telephone Encounter - Chet Reyes LPN - 12/30/2024 3:32 PM EDT HUB TO RELAY LVM. Per Dr. Aviles: I called over. Would you ask the patient to call the anticoagulation clinic and let them know he isnow on this medication z devyn and prednisone so they can increase monitoring to avoid any bleeding? * Telephone Encounter - Isatu Aviles DO - 12/30/2024 3:15 PM EDT I called over. Would you ask the patient to call the anticoagulation clinic and let them know he isnow on this medication z devyn and prednisone so they can increase monitoring to avoid any bleeding? Pharmacy may need to be updated that we are calling this over again after canceling. * Telephone Encounter - Chet Reyes LPN - 12/30/2024 2:33 PM EDT Patient following up to see if provider will resend medication to pharmacy as ER did not prescribe him anything because we already did. * Telephone Encounter - Louis Ruano RegSched Rep - 12/30/2024 11:46 AM EDT PT STATED THAT WHEN HE WENT TO THE ER AND THE ER DIDN'T SEND HIM IN A PRESCRIPTION BECAUSE ONE HAD ALREADY BEEN SENT IN. PT STATED HE NEEDS THE MEDICATION TO BE RESENT. * Telephone Encounter - Chet Reyes LPN - 12/30/2024 10:45 AM EDT Pharmacy advised to cancel * Telephone Encounter - Isatu Aviles DO - 12/30/2024 10:34 AM EDT Patient was going to monitor closely, but please call pharmacy and have them cancel the prescriptions as the patient went to the er anyway. * Telephone Encounter - Beverly Caro RegSched Rep - 12/30/2024 10:24 AM EDT Pharmacy called regarding rxs for prednisone and z-pack. They said the patient is also on warfarin and both of those meds can increase the effect of the warfarin, especially the z-pack. They just want to verify that it's okay to go ahead and fill both rxs. Callback number is [phone]. documented in this encounter Plan of Treatment Upcoming Encounters Date Type Department Care Team (Late st Contact Info) Description 03/12/2025 8:30 AM EDT Office Visit [facility]ITICAL [facility]ARE MEDICINE [address] [place] [phone] Rae Truong, LEASING PROFESSIONAL [address] [place] [address] 04/29/2025 9:30 AM EDT Office Visit [facility] [address] [phone] Fauzia Sterling MD [address] [address] documented as of this encounter Goals Goal [...] documented as of this encounter Care Teams Senior Product Development Scientist Relationship Specialty Start Date End Date Fauzia Sterling MD [address] [place] [address] PCP - General Family Medicine 09/03/18 documented as of this encounter
--- OUTSIDE RECORDS SUMMARY | 2025-02-12 16:59 | XMS_ITS | Encounter Summary ---
[facility] Address [address] [place] [address] Care Team Providers Care Functional Manager Name Role Phone Fauzia Sterling MD Primary Care Provider [phone] Reason for Visit * Reason Comments Med Refill Encounter Details Date Type Department Care Team ([facility] st Contact Info) Description 12/22/2024 Refill [facility] [address] [facility] [address] [place] [phone] Fauzia Sterling MD [address] [facility] [address] [place] [address] Anticoagulant long-term use Social History Tobacco Use Types Packs/Day Years Used Date Smoking Tobacco: Every Day Cigarettes 1 35 Passive Smoke Exposure: Current Smokeless Tobacco: Never Comments:Smoking 1-1 1/2 pac k a day Alcohol Use Standard Drinks/Week Comments No 0 (1 standard drink = 0.6 oz pur e alcohol) [facility] Utilities Answer Date Recorded In the [...] time in the past 12 m [facility], were you homeless or living in [...] & CRITICAL CARE MEDICINE [address] [place] [phone] Rae Truong, SIMEON [address] [place] [address] 04/29/2025 9:30 AM EDT Office Visit [facility] [address] [place] [address] Fauzia Sterling MD [address] [place] [address] documented as of this encounter Goals Goal [...] documented as of this encounter Care Teams Functional Manager Relationship Specialty Start Date End Date Fauzia Sterling MD [address] [place] [address] PCP - General Family Medicine 09/03/18 documented as of this encounter
--- OUTSIDE RECORDS SUMMARY | 2025-02-12 16:59 | XMS_ITS | Encounter Summary ---
[facility] Address [address] [place] [address] Care Team Providers Care Engine Designer Name Role Phone Fauzia Sterling MD Primary Care Provider [phone] Encounter Details Date Type Department Care Team (Late st Contact Info) Description 11/17/2024 Results Follow-Up [facility] [address] [address] Fauzia Sterling MD [address] [address] Social History Tobacco Use Types Packs/Day Years Used Date Smoking Tobacco: Every Day Cigarettes 1 35 Passive Smoke Exposure: Current Smokeless Tobacco: Never Comments:Smoking 1-1 1/2 pac k a day Alcohol Use Standard Drinks/Week Comments No 0 (1 standard drink = 0.6 oz pur e alcohol) [facility] Utilities Answer Date Recorded In the past 12 months has [employer], gas, oil, or water [employer] threatened to shut off services in your [...] any time in the past 12 m [facility], were you homeless or living [...] as of this encounter Progress Notes * Fauzia Sterling MD - 11/17/2024 9:18 AM EDT I have reviewed this result documented in this encounter Plan of Treatment Upcoming Encounters Date Type Department Care Team (Late st Contact Info) Description 03/12/2025 8:30 AM EDT Office Visit [facility] PULMON[facility] & CRITICAL CARE MEDICINE [address] [facility] [place] [address] Rae Truong, SUPERVISOR [employer] [address] [place] [address] 04/29/2025 9:30 AM EDT Office Visit [facility] [address] [facility] [address] [place] [address] Fauzia Sterling MD [address] [facility] [address] [place] [address] documented as of this encounter Goals Goal [...] documented as of this encounter Care Teams Engine Designer Relationship Specialty Start Date End Date Fauzia Sterling MD [address] [place] [address] PCP - General Family Medicine 09/03/18 documented as of this encounter
--- OUTSIDE RECORDS SUMMARY | 2025-02-12 16:59 | XMS_ITS | Encounter Summary ---
[facility] Address [address] [place] [address] Care Team Providers Care Hoof Trimmer Name Role Phone Fauzia Sterling MD Primary Care Provider [phone] Reason for Visit * Reason Onset Date Comments New Med Request 12/30/2024 Encounter Details Date Type Department Care Team (Late st Contact Info) Description 12/30/2024 Telephone [facility] FAM[facility] MEDICINE [address] [address] Fauzia Sterling MD [address] [place] [address] New Med Request Social History Tobacco Use Types Packs/Day Years Used Date Smoking Tobacco: Every Day Cigarettes 1 35 Passive Smoke Exposure: Current Smokeless Tobacco: Never Comments:Smoking 1-1 1/2 pac k a day Alcohol Use Standard Drinks/Week Comments No 0 (1 standard drink = 0.6 oz pur e alcohol) [facility] Utilities Answer Date Recorded [...] 9:53 AM EDT Yoni Bobby, RN * [place] Suicide Severity Rating Scale (Screener/Recent Self-Report) Question Answer Date of Assessment Author 1. Wish to be (Past 1 Month) No 025 9:53 AM EDT Yoni Bobby, RN 2. Non-Specific Active Suici sean Thoughts (Past 1 Month) No 12/30/2024 9:53 AM EDT Blayne Bobby RN 6. Suicidal Behavior (Lifetime) No 9:53 AM EDT Yoni Bobby, RN documented as of this encounter Miscellaneous Notes * Telephone Encounter - Chet Baez LPN - 12/30/2024 1:43 PM EDT Medication was sent to pharmacy. * Telephone Encounter - Kavya Holly RegSched Rep - 12/30/2024 1:02 PM EDT Caller: Jesus Perales Relationship: Self Best call back number: What medication are you requesting: PRESCRIPTION ORIGINALLY PRESCRIBED BY DR LOWERY THIS MORNING, 12/30. FOLLOWING 9:00 APPOINTMENT PATIENT STATED EMERGENCY ROOM DID NOT PRESCRIBE MEDICATION, AND DR LOWERY CANCELLED ORIGINAL PRESCRIPTION If a prescription is needed, what is your preferred pharmacy and phone number: [place], [place] TELEPHONE CONTACT: [phone] documented in this encounter Plan of Treatment Upcoming Encounters Date Type Department Care Team (Late st Contact Info) Description 03/12/2025 8:30 AM EDT Office Visit [facility] PULMONARY & CRITICAL CARE MEDICINE [address] [place] [phone] Rae Truong, SOLUTION SALES SENIOR EXECUTIVE [address] [place] [address] 04/29/2025 9:30 AM EDT Office Visit [facility] FAMILY MEDICINE [address] [phone] Fauzia Sterling MD [address] [address] documented as of this encounter Goals Goal [...] documented as of this encounter Care Teams Hoof Trimmer Relationship Specialty Start Date End Date Fauzia Sterling MD [address] [place] [address] PCP - General Family Medicine 09/03/18 documented as of this encounter
--- OUTSIDE RECORDS SUMMARY | 2025-02-12 16:59 | XMS_ITS | Encounter Summary ---
Author Organization [address] ([place], [place], [place], [place]) Address [address] [place] [address] Care Team Providers Care Asbestos Shingle Inspector Name Role Phone Unavailable Primary Care Provider Unavailabl e Encounter Details Date Type Department Care Team (Late st Contact Info) Description 11/12/2018 Transcribed Document [facility] Family Medicine [facility] [place] [address] ProviderJulito MD [address] [place] [id number] Social History Tobacco Use Types Packs/Day Years Used Date Smoking Tobacco: Never Assessed Comments Unknown Sex and Gender Information Value Date Recorded Sex Assigned at Unknown 01/19/2022 4:47 PM CDT Legal Sex Male 6:33 PM CDT Gender Identity Not on file Sexual Orientation Not on file documented as of this encounter Miscellaneous Notes * Cerner Conversion Note - Julito Martin MD - 11/12/2018 12:39 PM CDT Electronically signed by Shayla [facility] Conversion Wound Nurse Sourav at 11/08/2022 11:22 AM CDT documented in this encounter Plan of Treatment Not on file documented as of this encounter Visit Diagnoses Not on filedocumented in this encounter
--- OUTSIDE RECORDS SUMMARY | 2025-02-12 16:59 | XMS_ITS | Encounter Summary ---
Author Organization [employer] ([place], [place], [place], [place]) Address [address] [place] [address] Care Team Providers Care Block Making Machine Operator Name Role Phone Unavailable Primary Care Provider Unavailabl e Encounter Details Date Type Department Care Team (Late st Contact Info) Description 11/12/2018 Transcribed Document [facility] [place] [facility] [place] [address] ProviderJulito MD [address] [place] [id number] Social History Tobacco Use Types Packs/Day Years Used Date Smoking Tobacco: Never Assessed Comments Unknown Sex and Gender Information Value Date Recorded Sex Assigned at Unknown 01/19/2022 4:47 PM CDT Legal Sex Male 6:33 PM CDT Gender Identity Not on file Sexual Orientation Not on file documented as of this encounter Miscellaneous Notes * Cerner Conversion Note - Julito Martin MD - 11/12/2018 11:08 AM CDT ED Assessment Entered On: 11/12/2018 12:24 EDT Performed On: 11/12/2018 12:15 EDT by SAM PARISI OUTDOOR RECREATION SPECIALIST Quick Look Assessment Level of Consciousness : Alert, Awake Affect/Behavior : Cooperative Orientation : Oriented x 4 Skin Color : Pallor Skin Temperature : Warm Skin Description : Dry SAM PARISI RN - 11/12/2018 12:15 EDT ED General-Functional Assess Information Obtained From : Patient Preferred Communication Mode : Verbal Communication Barrier : None Primary Language : Hong Konger Any Spiritual/Cultural Needs or Requests : No Currently in Unsafe Situation : No SAM PARISI RN - 11/12/2018 12:15 EDT Social Habits Smoking Status : 4 or less cigarettes(less than 1/4 pack)/day in last 30 days Smokeless Tobacco Status : Never Desires Tobacco Cessation Medication : No Reason for No Tobacco Cessation Medication : ED/procedural patient only Desires Tobacco Cessation Calc : 1 SAM PARISI RN - 11/12/2018 12:15 EDT Social History (As Of: 11/12/2018 12:24:23 EDT) Tobacco: 4 or less cigarettes(less than 1/4 pack)/day in last 30 days Smoking Status. Smokeless tobacco user within last 30 days Smokeless Tobacco Status. None Smokeless Tobacco Use History. (Last Updated: 11/12/2018 12:17:24 EDT by SAM PARISI, RN) Alcohol: Alcohol Use History No. (Last Updated: 11/12/2018 12:17:29 EDT by SAM PARISI, RN) Substance Abuse: Drug Use Hx: No. Use in Last 12 Months: No. (Last Updated: 11/12/2018 12:17:35 EDT by SAM PARISI, RN) Nutrition/Health: Regular (Last Updated: 11/12/2018 12:17:39 EDT by SAM PARISI, RN) Home/Environment: Living situation: Home/Independent. (Last Updated: 11/12/2018 12:17:46 EDT by SAM PARISI, RN) Cardiovascular ASMT, ED Edema Comment : . SAM PARISI RN - 11/12/2018 12:25 EDT EKG Time Completed : 11/12/2018 11:25 EDT EKG Time Communicated to Provider : 11/12/2018 11:25 EDT SAM PARISI RN - 11/12/2018 12:24 EDT Cardiovascular Assessment WDL : WDL with exceptions Cardiovascular Symptoms : Other: Burning in the middle of chest. Heart Rhythm : Regular Nail Bed Color : Carrizo EKG Completed by : Dylan Quick, Emergency Room Material Attendant EKG Communicated to Provider : BUDDY ROSENBERG MD FIELDS, PATSY N, RN - 11/12/2018 12:15 EDT Gastrointestinal ED Gastrointestinal Assessment WDL : WDL with exceptions Gastrointestinal Symptoms : Epigastric Pain Gastrointestinal Assessment Comment : Pt. reports that he is having burning and discomfort in the middle of his chest since last night. Takes medication for GERD. SAM PARISI RN - 11/12/2018 12:15 EDT Electronically signed by Shayla [facility] Conversion Brain Wave Technician Cerner at 11/08/2022 11:43 AM CDT documented in this encounter Plan of Treatment Not on file documented as of this encounter Visit Diagnoses Not on filedocumented in this encounter
--- OUTSIDE RECORDS SUMMARY | 2025-02-12 16:59 | XMS_ITS | Referral Summary ---
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 09/17/19 24 Active buprenorphine- naloxone (SUBOXONE) 8-[address] 1 tablet under the tongue daily as needed. Max Daily Amount: 1 tablet 10/29/19 24 Active ferrous sulfate 325 (65 FE) MG tablet Take 1 tablet (325 mg total) by mouth every other day. 10/26/19 24 Active lisinopril-hyd roCHLOROthiazi de (PRINZIDE,ZEST ORETIC) 20-12.5 mg per tablet Take 2 tablets by mouth daily. 09/03/19 24 Active escitalopram oxalate (LEXAPRO) 10 MG tablet Take 1 tablet (10 mg total) by mouth daily. 08/31/19 24 Active potassium chloride SA (K-DUR,KLOR-CO N-M) 20 MEQ tablet Take 1 tablet (20 mEq total) by mouth daily. 08/20/19 24 Active testosterone cypionate (DEPOTESTOTERO NE CYPIONATE) 200 mg/mL injection Inject 1 mL (200 mg total) intramuscularly once every 2 weeks. Max Daily Amount: 200 mg 10/18/19 24 Active warfarin (COUMADIN, JANTOVEN) 10 MG tablet Take 1 tablet (10 mg total) by mouth daily. 10/01/19 24 Active metoprolol succinate (TOPROL-XL) 50 MG 24 hr tablet Take 1 tablet (50 mg total) by mouth daily. 10/16/19 Active omeprazole (PriLOSEC) 40 MG capsule Take 1 capsule (40 mg total) by mouth daily. 10/06/19 Active cetirizine (ZyrTEC) 10 MG tablet Take 1 tablet (10 mg total) by mouth daily. 10/10/19 Active Social History Tobacco Use Types Packs/Day Years Used Date Smoking Tobacco: Every Day Cigarettes Smokeless Tobacco: Never Tobacco Cessation:Ready to Q uit: Not Asked; Counseling Given: Not Answered Alcohol Use Standard Drinks/Week Comments Not Currently 0 (1 standard drink = 0.6 oz pur e alcohol) Food Insecurity Answer Date Recorded Food run out past 12 months Not on file 10/21 Food did not last past 12 months Not on file 11/01/2023 Employment Answer Date Recorded Help finding and keeping a job Not on file 0 11/01/2023 Family and Community Support Answer O[place] e Recorded Help with Day to Day Activities Not on file 11/01/2023 Feeling Lonely or Isolated Not on file 10/31 Educational Attainment Answer Date Antonio rded Speak language other than Faroese at home Not on file 11/01/2023 Want help with school or training Not on file 11/01/2023 Substance Use Answer Date Recorded Used prescription meds for non-medical reasons N ot on file 11/01/2023 Used illegal drugs past 12 months Not on file 11/01/2023 Comments Unknown Sex and Gender Information Value Date Recorded Sex Assigned at Unknown 01/19/2022 4:47 PM CDT Legal Sex Male 6:33 PM CDT Gender Identity Not on file Sexual Orientation Not on file Last Filed Vital Signs Vital Sign Reading Time Taken Comments Blood Pressure 139/76 11/01/2023 3:28 PM EDT Pulse 70 11/01/2023 3:28 PM EDT Temperature 37.3 C (99.1 F) 11/01/2023 1:50 PM EDT Respiratory Rate 17 11/01/2023 3:28 PM EDT Oxygen Saturation 96% 11/01/2023 3:28 PM EDT Inhaled Oxygen Concentration - - Weight 115.7 kg (255 lb) 11/01/2023 1:50 PM EDT Height 177.8 cm (5' 10 ) 11/01/2023 1:50 PM EDT Body Mass Index 36.59 11/01/2023 1:50 PM EDT Plan of Treatment Not on file Insurance [facility] MEDICAID
--- OUTSIDE RECORDS SUMMARY | 2025-02-12 16:59 | XMS_ITS | Encounter Summary ---
[facility] Address [address] [place] [address] Care Team Providers Care Material Dispatcher Name Role Phone Fauzia Sterling MD Primary Care Provider [phone] Reason for Visit * Reason Onset Date Comments Prior Authorization 12/29/2024 Encounter Details Date Type Department Care Team (Late st Contact Info) Description 12/29/2024 Telephone [facility] [address] [phone] Fauzia Sterling MD [address] [place] [id number] Prior Authorization Social History Tobacco Use Types Packs/Day Years Used Date Smoking Tobacco: Every Day Cigarettes 1 35 Passive Smoke Exposure: Current Smokeless Tobacco: Never Comments:Smoking 1-1 1/2 pac k a day Alcohol Use Standard Drinks/Week Comments No 0 (1 standard drink = 0.6 oz pur e alcohol) [facility] Utilities Answer Date Recorded In [...] any time in the past 12 m [facility], were you homeless or living in a half-way (including now)? No 11/18/2024 Abuse Screen Answer [...] Encounter - Chet Baez LPN - 12/30/2024 8:59 AM EDT APPROVED-12/29/24-12/29/25 * Telephone Encounter - Chet Baez LPN - 12/29/2024 1:57 PM EDT PA Started 12/29/24 * Telephone Encounter - Beverly Caro RegSched Rep - 12/29/2024 1:11 PM EDT PA automatically started for [employer] based on the upcoming expiration date of a previously approved PA. Covermymeds Cruz [id number] documented in this encounter Plan of Treatment Upcoming Encounters Date Type Department Care Team (Late st Contact Info) Description 03/12/2025 8:30 AM EDT Office Visit [facility] [address] [place] [address] Rae Truong, MARINE FIRER [address] [place] [address] 04/29/2025 9:30 AM EDT Office Visit [facility] [address] [phone] Fauzia Sterling MD [address] [phone] documented as of this encounter Goals Goal [...] documented as of this encounter Care Teams Material Dispatcher Relationship Specialty Start Date End Date Fauzia Sterling MD [address] [place] [address] PCP - General Family Medicine 09/03/18 documented as of this encounter
--- OUTSIDE RECORDS SUMMARY | 2025-02-12 16:59 | XMS_ITS | Encounter Summary ---
Author Organization [facility] ([place], [place], [place], [place]) Address [address] [place] [address] Care Team Providers Care Veneer Jointer Name Role Phone Unavailable Primary Care Provider Unavailabl e Encounter Details Date Type Department Care Team (Late st Contact Info) Description 11/12/2018 Transcribed Document [facility] [place] [address] [place] [id number] ProviderJulito MD [address] [place] [id number] Social History Tobacco Use Types Packs/Day [...] Note - Julito Martin MD - 11/12/2018 12:56 PM CDT [facility] [address] [place] [address] ODETTE ROBERTSON :1965 Visit Time:11/12/2018 Your Visit Summary Your Care Team Admitting Physician - BUDDY ROSENBERG MD-HIWOT Attending Physician - BUDDY ROSENBERG MD-HIWOT Primary Care Physician - DOMINGA WHYTE (REF)MD-[facility] Referring Physician - BUDDY ROSENBERG MD-HIWOT Your Diagnosis Chest pain Chest pain Patient Portal Reminder: Be sure to sign up for the [employer] patient portal, which gives you 12/02 access to your medical information ??? including these discharge instructions ??? using your computer, smartphone, or tablet. Just go to Digiscend to get started. Questions? Call . You may also obtain a copy of your Emergency Department visit from Medical Records by calling the hospital phone number listed above and asking to be directed to the Medical Records Department. If you had special tests, such as EKG???s or X-rays, the interpretation of your tests given to you by the Emergency Department Physician is a preliminary report. Some fractures and illnesses fail to show up on preliminary tests. These will be reviewed again and we will call you if there are any new suggestions. If your symptoms continue notify your physician. After you leave, you should follow the instructions provided. What to do next Follow-Up Appointments Follow Up with DOMINGA WHYTE When Within 2 to 3 days Where: [place] [address] [place] [address]- Business (1) Allergies penicillin Immunizations This Visit No Immunizations Found Medications What How Much When Instructions Next Dose New sucralfate (Carafate 1 g oral tablet) 1 Tablet(s) Oral Two Times A Day Duration: 30 Day(s) Printed Prescription Unchanged amLODIPine (amLODIPine 5 mg oral tablet) Unchanged buprenorphine-naloxone (buprenorphine-naloxone 8 mg-2 mg sublingual tablet) 2 Tablet(s) SubLINgual Every Day Unchanged divalproex sodium (divalproex sodium 500 mg oral delayed release tablet) Unchanged escitalopram (escitalopram 10 mg oral tablet) Unchanged guanFACINE (guanFACINE 1 mg oral tablet) Unchanged hydrochlorothiazide-lisinopril (hydroCHLOROthiazide-lisinopril 12.5 mg-20 mg oral tablet) Unchanged loratadine (loratadine 10 mg oral tablet) Unchanged metoprolol (Metoprolol Tartrate 50 mg oral tablet) Unchanged omeprazole (omeprazole 40 mg oral delayed release capsule) Unchanged potassium chloride (Klor-Con M20 oral tablet, extended release) Unchanged raNITIdine (raNITIdine 150 mg oral tablet) Unchanged warfarin (warfarin 10 mg oral tablet) The home medications listed are only as accurate as the information you provided. Please continue taking all of your medications prescribed by your Primary Care Provider unless specifically told to change or discontinue the medication. Please direct any questions regarding your home medications to your Primary Care Provider. Take your medications faithfully. Do NOT skip medication. Do NOT stop taking medications without the direction of a physician. Carry a list of your medications with you at all times, and take this medication list with you to your first follow up visit. Report any side effects. Avoid herbal remedies unless discussed with your physician. As part of your treatment plan, your physician may have prescribed a limited course of a controlled substance. This medication may be given to help people with moderate or severe pain or for other medical conditions, but there are risks involved with treatment. Common side effects may include nausea, constipation, drowsiness, sweating, itching, dry mouth, and rash. More serious side effects may include cognitive and motor impairment, like problems with thinking, concentrating, alertness, and movement (e.g. slowed reflexes), and driving and operating heavy machinery can be dangerous. It is important for you to talk to your physician if you have these side effects or questions. These controlled substances can produce physical dependence and be habit-forming if taken for an extended period of time, which means that the body has gotten used to them and may experience withdrawal symptoms if they are abruptly stopped. Withdrawal symptoms can include runny nose, sweating, goose bumps, diarrhea, abdominal cramping, rapid heartbeat, difficulty sleeping, and nervousness. Please dispose of unused and medications per pharmacy guidance. Test Results Laboratory or Other Results This Visit (last charted value for your 11/12/2018 visit) Hematology 11/12/18 12:10:00 WBC: 8.8 K/uL -- Normal range between ( 4.2 and 9.1 ) RBC: 4.91 Million/uL -- Normal range between ( 4.63 and 6.08 ) Hct: 41.3 % -- Normal range between ( 40.1 and 51.0 ) Hgb: 14.8 Gram/dL -- Normal range between ( 13.7 and 17.5 ) Platelet Count: 231 K/uL -- Normal range between ( 163 and 369 ) MCH: 30.1 pg -- Normal range between ( 25.6 and 32.2 ) MCHC: 35.8 Gram/dL -- Normal range between ( 32.2 and 36.5 ) MCV: 84.1 fL -- Normal range between ( 79.0 and 94.8 ) Slide Review: No RDW: 12.4 % -- Normal range between ( 11.6 and 14.4 ) MPV: 9.1 fL -- Normal range between ( 9.4 and 12.4 ) General Chemistry 11/12/18 12:10:00 Creatinine Level: 0.94 mg/dL -- Normal range between ( 0.70 and 1.30 ) Sodium Level: 138 mmol/L -- Normal range between ( 136 and 145 ) Potassium Level: 5.2 mmol/L -- Normal range between ( 3.5 and 5.1 ) Chloride Level: 103 mmol/L -- Normal range between ( 98 and 107 ) Carbon Dioxide Level: 28 mmol/L -- Normal range between ( 21 and 32 ) Anion Gap: 12 -- Normal range between ( 9 and 20 ) Bilirubin Total: 0.5 mg/dL -- Normal range between ( 0.2 and 1.0 ) A/G Ratio: 0.8 -- Normal range between ( 1.1 and 2.5 ) ALT: 20 Units/Liter -- Normal range between ( 16 and 63 ) AST: 38 Units/Liter -- Normal range between ( 15 and 37 ) Globulin: 4.1 Gram/dL -- Normal range between ( 1.5 and 4.5 ) Alk Phos: 90 Units/Liter -- Normal range between ( 46 and 116 ) Amylase Level: 37 Units/Liter -- Normal range between ( 25 and 115 ) Bun/Creatinine: 20.213 Calcium Level: 9.0 mg/dL -- Normal range between ( 8.5 and 10.1 ) eGFR : 102 mL/min/1.73m2 eGFR NonAfrican: 84 mL/min/1.73m2 Glucose Level: 105 mg/dL -- Normal range between ( 74 and 106 ) Blood Urea Nitrogen: 19 mg/dL -- Normal range between ( 7 and 18 ) Protein Total: 7.5 Gram/dL -- Normal range between ( 6.4 and 8.2 ) Albumin Level: 3.4 Gram/dL -- Normal range between ( 3.4 and 5.0 ) Lipase Level: 98 Units/Liter -- Normal range between ( 73 and 393 ) Cardiac Specific Markers 11/12/18 12:10:00 Troponin I Ultra: <0.017 ng/mL -- Normal range between ( 0.000 and 0.056 ) Coagulation 11/12/18 12:10:00 INR: 2.5 -- Normal range between ( 1.0 and 1.2 ) PT: 24.5 Second(s) -- Normal range between ( 9.5 and 11.3 ) Education Materials Nonspecific Chest Pain Chest pain can be caused by many different conditions. There is always a chance that your pain could be related to something serious, such as a heart attack or a blood clot in your lungs. Chest pain can also be caused by conditions that are not life-threatening. If you have chest pain, it is very important to follow up with your health care provider. What are the causes? Causes of this condition include: ??? Heartburn. ??? Pneumonia or bronchitis. ??? Anxiety or stress. ??? Inflammation around your heart (pericarditis) or lung (pleuritis orpleurisy). ??? A blood clot in your lung. ??? A collapsed lung (pneumothorax). This can develop suddenly on its own (spontaneous pneumothorax) or from trauma to the chest. ??? Shingles infection (varicella-zoster virus). ??? Heart attack. ??? Damage to the bones, muscles, and cartilage that make up your chest wall. This can include: ? Bruised bones due to injury. ? Strained muscles or cartilage due to frequent or repeated coughing or overwork. ? Fracture to one or more ribs. ? Sore cartilage due to inflammation (costochondritis). What increases the risk? Risk factors for this condition may include: ??? Activities that increase your risk for trauma or injury to your chest. ??? Respiratory infections or conditions that cause frequent coughing. ??? Medical conditions or overeating that can cause heartburn. ??? Heart disease or family history of heart disease. ??? Conditions or health behaviors that increase your risk of developing a blood clot. ??? Having had chicken pox (varicella zoster). What are the signs or symptoms? Chest pain can feel like: ??? Burning or tingling on the surface of your chest or deep in your chest. ??? Crushing, pressure, aching, or squeezing pain. ??? Dull or sharp pain that is worse when you move, cough, or take a deep breath. ??? Pain that is also felt in your back, neck, shoulder, or arm, or pain that spreads to any of these areas. Your chest pain may come and go, or it may stay constant. How is this diagnosed? Lab tests or other studies may be needed to find the cause of your pain. Your health care provider may have you take a test called an ECG (electrocardiogram). An ECG records your heartbeat patterns at the time the test is performed. You may also have other tests, such as: ??? Transthoracic echocardiogram (TTE). In this test, sound waves are used to create a picture of the heart structures and to look at how blood flows through your heart. ??? Transesophageal echocardiogram (BELEN). This is a more advanced imaging test that takes images from inside your body. It allows your health care provider to see your heart in finer detail. ??? Cardiac monitoring. This allows your health care provider to monitor your heart rate and rhythm in real time. ??? Holter monitor. This is a portable device that records your heartbeat and can help to diagnose abnormal heartbeats. It allows your health care provider to track your heart activity for several days, if needed. ??? Stress tests. These can be done through exercise or by taking medicine that makes your heart beat more quickly. ??? Blood tests. ??? Other imaging tests. How is this treated? Treatment depends on what is causing your chest pain. Treatment may include: ??? Medicines. These may include: ? Acid blockers for heartburn. ? Anti-inflammatory medicine. ? Pain medicine for inflammatory conditions. ? Antibiotic medicine, if an infection is present. ? Medicines to dissolve blood clots. ? Medicines to treat coronary artery disease (CAD). ??? Supportive care for conditions that do not require medicines. This may include: ? Resting. ? Applying heat or cold packs to injured areas. ? Limiting activities until pain decreases. Follow these instructions at home: Medicines ??? If you were prescribed an antibiotic, take it as told by your health care provider. Do not stop taking the antibiotic even if you start to feel better. ??? Take pixv-yys-ippxpnj and prescription medicines only as told by your health care provider. Lifestyle ??? Do notuse any products that contain nicotine or tobacco, such as cigarettes and e-cigarettes. If you need help quitting, ask your health care provider. ??? Do notdrink alcohol. ??? Make lifestyle changes as directed by your health care provider. These may include: ? Getting regular exercise. Ask your health care provider to suggest some activities that are safe for you. ? Eating a heart-healthy diet. A registered dietitian can help you to learn healthy eating options. ? Maintaining a healthy weight. ? Managing diabetes, if necessary. ? Reducing stress, such as with yoga or relaxation techniques. General instructions ??? Avoid any activities that bring on chest pain. ??? If heartburn is the cause for your chest pain, raise (elevate) the head of your bed about 6 inches (15 cm) by putting blocks under the legs. Sleeping with more pillows does not effectively relieve heartburn because it only changes the position of your head. ??? Keep all follow-up visits as told by your health care provider. This is important. This includes any further testing if your chest pain does not go away. Contact a health care provider if: ??? Your chest pain does not go away. ??? You have a rash with blisters on your chest. ??? You have a fever. ??? You have chills. Get help right away if: ??? Your chest pain is worse. ??? You have a cough that gets worse, or you cough up blood. ??? You have severe pain in your abdomen. ??? You have severe weakness. ??? You faint. ??? You have sudden, unexplained chest discomfort. ??? You have sudden, unexplained discomfort in your arms, back, neck, or jaw. ??? You have shortness of breath at any time. ??? You suddenly start to sweat, or your skin gets clammy. ??? You feel nauseous or you vomit. ??? You suddenly feel light-headed or dizzy. ??? Your heart begins to beat quickly, or it feels like it is skipping beats. These symptoms may represent a serious problem that is an emergency. Do not wait to see if the symptoms will go away. Get medical help right away. Call your local emergency services (911 in the [place] Do not drive yourself to the hospital. This information is not intended to replace advice given to you by your health care provider. Make sure you discuss any questions you have with your health care provider. Document Released: 04/18/2006 Document Revised: 04/02/2017 Document Reviewed: 04/02/2017 [employer] Interactive Patient Education ?? 2017 [employer] Emergency Awareness and Preventative Care STROKE is an EMERGENCY Every Minute Counts Act FAST and Check for these signs: FACE Does the face look uneven? ARM Does one arm drift down? SPEECH Does their speech sound strange? TIME Call at any sign of stroke Stroke Risk Factors Atrial Fibrillation (irregular heartbeat) Diabetes Family history of stroke Heart Disease Heavy alcohol use High Blood Pressure High Cholesterol Physical inactivity and obesity Smoking Cigarette Smoking The facts are clear, cigarette smoking will shorten your life. Smoking can cause many illnesses along the way. As a healthcare provider, we recommend that you stop smoking. Assistance with quitting is available by contacting 0-442-MHIBNOW. This is a free resource providing counseling, support, and referral. Or you may contact your personal physician. [employer] Suicide Prevention Lifeline: The National Suicide Prevention Lifeline is a national network of local crisis centers that provides free and confidential emotional support to people in suicidal crisis or emotional distress 24 hours a day, 7 days a week. Don't Wait! Stop a Heart Attack Before it Starts What is a heart attack? A heart attack is damage or to a part of the heart from severely decreased or lack of blood flow to the heart. Over time, arteries can become narrow from the buildup of fat and cholesterol, which is called plaque. The plaque can rupture causing a blood clot to form. When the blood clot forms, the artery can become severely narrowed or completely blocked, causing a heart attack. Heart attack is the leading cause of in the [place]. 85% of muscle damage occurs within the first 2 hours. Delay in the recognition of heart attack symptoms increases the chances of . Know the early symptoms of a heart attack: Nausea Feeling of fullness in chest Jaw Pain Pain that travels down one or both arms Fatigue/being tired Anxiety Back Pain Chest pressure, squeezing, or discomfort Shortness of breath Sweating, or a cold sweat Feeling of impending doom There are unusual signs of a heart attack, too! Women, the elderly, and diabetics may present with atypical symptoms: Fainting/dizziness Weakness Confusion Risk Factors for a Heart Attack Some heart disease risk factors, such as age and family history, cannot be changed. Others, like smoking and lack of exercise, can be changed. Smoking High Cholesterol High Blood Pressure Family History Obesity Age Gender (Males are at higher risk) Lack of Exercise Diabetes Diet Stress Excessive Alcohol Intake If you or someone you know is experiencing the signs and symptoms of a heart attack, DON???T DELAY. Call immediately and seek help. If someone collapses, perform CPR! Do not attempt to drive if you are having symptoms of heart attack. Hands-Only CPR Why Hands-Only CPR? Hands-Only CPR has been shown to be as effective as conventional CPR for cardiac arrests that occur outside of a hospital. Survival depends on immediately receiving CPR from someone nearby. How do you perform Hands-Only CPR? There are two easy steps: Call if you see a teen or adult collapse Push hard and fast in the center of the chest at a beat of 100 beats per minute. Save a life! 4 WAYS TO GET AHEAD OF SEPSIS SEPSIS is a MEDICAL EMERGENCY. Time matters! Infections put you and your family at risk for a life-threatening condition called sepsis. Sepsis is the body's extreme response to an infection. It is life-threatening, and without timely treatment, sepsis can rapidly lead to tissue damage, organ failure, and . Sepsis happens when an infection you already have-in your skin, lungs, urinary tract or somewhere else-triggers a chain reaction throughout your body. 1 PREVENT INFECTIONS Take good care of chronic conditions. Talk to your doctor about getting the recommended vaccines. 2 PRACTICE GOOD HYGIENE Wash your hands frequently. Keep cuts or open sores clean and covered until they are healed. 3 KNOW THE SYMPTOMS Confusion or disorientation Shortness of breath High heart rate Fever, shivering, or feeling very cold Extreme pain or discomfort Clammy or sweaty skin 4 ACT FAST Get medical care IMMEDIATELY if you suspect sepsis or if you have an infection that is not getting better or is getting worse. To learn more about sepsis and how to prevent infections, visit www.cdc.gov/sepsis. The examination and treatment you have received in the Emergency Department has been done to provide an appropriate evaluation and stabilizing treatment on an emergency basis only. Given the limited resources, it is not meant to be a substitute for complete medical care. The follow-up doctor you named will receive a copy of your records and all test reports. IT IS IMPORTANT THAT YOU SCHEDULE A FOLLOW-UP APPOINTMENT AND ARE RE-EVALUATED. You should report any new complaints, symptoms, or remaining problems at that time. IT IS IMPOSSIBLE FOR THE EMERGENCY DEPARTMENT TO RECOGNIZE AND TREAT ALL ELEMENTS OF INJURY OR ILLNESS IN A SINGLE VISIT. If you have been referred to a specialist physician, it means that we believe you may have a condition that requires the expertise of a specialist. These physicians work in partnership with the hospital and have agreed to see referred patients in their office for further evaluation. KEEP IN MIND THAT THE SPECIALIST HAS HIS/HER OWN OFFICE POLICIES WHICH MAY REQUIRE PROPER INSURANCE OR PAYMENT UP FRONT BEFORE THE SPECIALIST WILL SEE YOU. It is your responsibility to call the specialist physician to make an appointment. We do not have the ability to refer patients to specialists/physicians that work with specific insurance companies. Please be advised that all financial charges or billing practices are determined by that practice, not the hospital. If your insurance company requires that you see a specialist from their approved list, it is your responsibility to contact your insurance company to make those arrangements. It is also your responsibility to follow any other requirements of your insurance company necessary to obtain coverage for claims submitted. We will bill your insurance; however, you are responsible today for any co-pay amounts. You will receive a separate bill for any services you may have received including: emergency, radiology, or pathology physicians. Patient Name:ODETTE ROBERTSON I have received this information and was given the opportunity to ask questions. Patient/Washroom Cleaner Name: Patient/Washroom Cleaner Signature: Relationship to Patient: Clinician/Hospital Washroom Cleaner Signature: Please Provide a Telephone Number Where You Can Be Reached: Is it Permissible To Leave a Message? Date: documented in this encounter Plan of Treatment Not on file documented as of this encounter Visit Diagnoses Not on filedocumented in this encounter
--- OUTSIDE RECORDS SUMMARY | 2025-02-12 16:59 | XMS_ITS | Encounter Summary ---
[facility] Address [address] [place] [address] Care Team Providers Care Air Valve Repairer Name Role Phone Fauzia Sterling MD Primary Care Provider [phone] Encounter Details Date Type Department Care Team (Latest Contact Info) Description 12/30/2024 Travel Social History Tobacco Use Types Packs/Day Years Used Date Smoking Tobacco: Every Day Cigarettes 1 35 Passive Smoke Exposure: Current Smokeless Tobacco: Never Comments:Smoking 1-1 1/2 pac k a day Alcohol Use Standard Drinks/Week Comments No 0 (1 standard drink = 0.6 oz pur e alcohol) [facility] Utilities Answer Date Recorded In the past [...] Author No Risk Indicated 12/30/2024 9:53 AM Yoni Deutsch, RN * Hall Suicide Severity Rating Scale (Screener/Recent Self-Report) Question Answer Date of Assessment Author 1. Wish to be (Past 1 Month) No 025 9:53 AM Yoni Deutsch, RN 2. Non-Specific Active Suici sean Thoughts (Past 1 Month) No 12/30/2024 9:53 AM Blayne Deutsch D, RN 6. Suicidal Behavior (Lifetime) No 9:53 AM EDT Yoni Bobby, RN documented as of this encounter Plan of Treatment Upcoming Encounters Date Type Department Care Team (Late st Contact Info) Description 03/12/2025 8:30 AM EDT Office Visit [facility] PUL[facility]ICAL CARE MEDICINE [address] [place] [address] Rae Truong APRN [address] [place] [address] 04/29/2025 9:30 AM EDT Office Visit [facility] FAMILY MEDICINE [address] [facility] [address] [place] [address] Fauzia Sterling MD [address] [facility] [address] [place], [place] [id number] documented as of this encounter Goals Goal [...] documented as of this encounter Care Teams Air Valve Repairer Relationship Specialty Start Date End Date Fauzia Sterling MD [address] [place] [address] PCP - General Family Medicine 09/03/18 documented as of this encounter
--- OUTSIDE RECORDS SUMMARY | 2025-02-12 16:59 | XMS_ITS | Encounter Summary ---
Author Organization [employer] ([place], [place], [place], [place]) Address [address] [place] [address] Care Team Providers Care Paint Mixer Hand Name Role Phone Unavailable Primary Care Provider Unavailabl e Encounter Details Date Type Department Care Team (Late st Contact Info) Description 11/12/2018 Transcribed Document [facility] [place] [facility] [place] [address] ProviderJulito MD [address] [place] [id number] Social History Tobacco Use Types Packs/Day Years Used Date Smoking Tobacco: Never Assessed Comments Unknown Sex and Gender Information Value Date Recorded Sex Assigned at Unknown 01/19/2022 4:47 PM CDT Legal Sex Male 6:33 PM CDT Gender Identity Not on file Sexual Orientation Not on file documented as of this encounter Miscellaneous Notes * Sourav Conversion Note - Julito Martin MD - 11/12/2018 11:20 AM CDT Pain Assessment Entered On: 11/12/2018 13:22 EDT Performed On: 11/12/2018 13:22 EDT by SAM PARISI RN Intervention Information: lidocaine topical Performed by SAM PARISI RN on 11/12/2018 12:05:00 EDT lidocaine topical,15mL Oral Pain Assessment Pain Assessment : Follow-up assessment Pain Scale Used : 0-10 Scale Location : Throat Onset : Constant Quality : Burning SAM PARISI RN - 11/12/2018 13:22 EDT Pain Scale Intensity : 4 SAM PARISI RN - 11/12/2018 13:22 EDT Image 4 - Images currently included in the form version of this document have not been included in the text rendition version of the form. documented in this encounter Plan of Treatment Not on file documented as of this encounter Visit Diagnoses Not on filedocumented in this encounter
--- OUTSIDE RECORDS SUMMARY | 2025-02-12 16:59 | XMS_ITS | Encounter Summary ---
Author Organization [facility] Address [address] [place] [address] Care Team Providers Care Line Prep Cook Name Role Phone Fauzia Sterling MD Primary Care Provider [phone] Encounter Details Date Type Department Care Team (Late st Contact Info) Description 11/24/2024 Results Follow-Up [facility] FAMILY MEDICINE [address] [phone] Fauzia Sterling MD [address] [address] Social History Tobacco Use Types Packs/Day Years Used Date Smoking Tobacco: Every Day Cigarettes 1 35 Passive Smoke Exposure: Current Smokeless Tobacco: Never Comments:Smoking 1-1 1/2 pac k a day Alcohol Use Standard Drinks/Week Comments No 0 (1 standard drink = 0.6 oz pur e alcohol) [facility] Utilities Answer Date Recorded In the past 12 months has [employer], gas, oil, or water [employer] threatened to shut off services in your [...] any time in the past 12 m [facility], were you homeless or living in a snf (including now)? No 11/18/2024 Abuse Screen Answer [...] Progress Notes * Jose Zamora MA - 11/24/2024 10:39 AM EDT Called patient voiced understanding. * Fauzia Sterling MD - 11/24/2024 8:53 AM EDT Notify the patient that the CT scan low-dose does not show any concerning findings for lung cancer or pulmonary nodules. 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 documented in this encounter Plan of Treatment Upcoming Encounters Date Type Department Care Team (Late st Contact Info) Description 03/12/2025 8:30 AM EDT Office Visit [facility] PULMONARY & CRITICAL CARE MEDICINE [address] [place] [address] Rae Truong, POLLUTION CONTROL ENGINEER [address] [place] [address] 04/29/2025 9:30 AM EDT Office Visit [facility] [address] [phone] Fauzia Sterling MD [address] [address] documented as of this encounter Goals Goal [...] documented as of this encounter Care Teams Line Prep Cook Relationship Specialty Start Date End Date Fauzia Sterling MD [address] [place] [address] PCP - General Family Medicine 09/03/18 documented as of this encounter
--- OUTSIDE RECORDS SUMMARY | 2025-02-12 16:59 | XMS_ITS | Encounter Summary ---
Author Organization [facility] Address [address] [place] [address] Care Team Providers Care Wheel Setter Name Role Phone Fauzia Sterling MD Primary Care Provider [phone] Encounter Details Date Type Department Care Team (Latest Contact Info) Description 12/19/2024 Travel Social History Tobacco Use Types Packs/Day [...] time in the past 12 m [facility], were you homeless or living in [...] Description 03/12/2025 8:30 AM EDT Office Visit [facility] PULMONARY & CRITICAL CARE MEDICINE [address] [place] [address] Rae Truong, FOOTWEAR MACHINERY INSTRUCTOR [address] [place] [address] 04/29/2025 9:30 AM EDT Office Visit [facility] FAMILY MEDICINE [address] [phone] Fauzia Sterling MD [address] [facility] [address] [place] [address] documented as of this encounter Goals Goal [...] documented as of this encounter Care Teams Wheel Setter Relationship Specialty Start Date End Date Fauzia Sterling MD [address] [address] PCP - General Family Medicine 09/03/18 documented as of this encounter
--- OUTSIDE RECORDS SUMMARY | 2025-02-12 16:59 | XMS_ITS | Encounter Summary ---
Author Organization [employer] ([place], [place], [place], [place]) Address [address] [place] [address] Care Team Providers Care Supervisor Cell Room Name Role Phone Unavailable Primary Care Provider Unavailabl e Encounter Details Date Type Department Care Team (Late st Contact Info) Description 11/12/2018 Transcribed Document [facility] [place] [facility] [place] [address] ProviderJulito MD [address] [place] [phone] Social History Tobacco Use Types Packs/Day Years Used Date Smoking Tobacco: Never Assessed Comments Unknown Sex and Gender Information Value Date Recorded Sex Assigned at Unknown 01/19/2022 4:47 PM CDT Legal Sex Male 6:33 PM CDT Gender Identity Not on file Sexual Orientation Not on file documented as of this encounter Miscellaneous Notes * Cerner Conversion Note - Julito Martin MD - 11/12/2018 1:23 PM CDT ED Discharge Entered On: 11/12/2018 13:24 EDT Performed On: 11/12/2018 13:23 EDT by SAM PARISI care taker Process Patient Disposition : Discharge Personal Belongings With Patient : Yes Patient Education Completed : Yes Teaching Evaluation : Verbalizes understanding Education Comment : Pt. d/c'd home without complaint. Will follow up with his reg doc as directed. IV Discontinued : Yes Nursing Documentation Completed : Yes IV Therapy Comment : IV d/c'd without complaint. SAM PARISI RN - 11/12/2018 13:23 EDT ED Discharge Discharge To : Home without planned follow-up Mode Of Departure : Ambulatory Accompanied By : Unaccompanied Discharge Instructions Reviewed With, Opportunity For Questions Given : Patient Prescriptions Given to Patient : Yes Number of Prescriptions Given : 1 SAM PARISI RN - 11/12/2018 13:23 EDT Electronically signed by Shayla, [facility] Conversion Cut Out Press Operator Cerner at 11/08/2022 11:29 AM CDT documented in this encounter Plan of Treatment Not on file documented as of this encounter Visit Diagnoses Not on filedocumented in this encounter
--- OUTSIDE RECORDS SUMMARY | 2025-02-12 16:59 | XMS_ITS | Clinical Summary ---
Author Organization [employer] ([place], [place], [place], [place]) Address [address] [place] [address] Care Team Providers Care Induction Heating Equipment Setter Name Role Phone Unavailable Primary Care Provider [...] Date Antonio rded Speak language other than [place] at home Not on file 11/01/2023 Want [...] 11/01/2023 1:50 PM EDT Plan of Treatment Health Maintenance Due Date Last Done Comments CT Colonography 1964 Colonoscopy 1964 Colorectal Cancer Screening 1964 FOBT/FIT 1964 Fit-DNA (Cologuard) 1964 Sigmoidoscopy 1964 Depression Screening (12+) 1976 HIV Screening 12/25/1979 Hepatitis C Screening 1982 DTAP/TDAP/TD VACCINES (1 - Tdap) 12/25/1983 Pneumococcal 50+ years (1 of 2 - PCV) 12/25/1983 Shingles Vaccine (Zoster) (1 of 2) 2014 COVID-19 VACCINE (2 - 2023-2 5 season) 2024 03/10/2021 Tobacco Cessation Counseling and Screening (12+) 10/31/2024 11/01/2023 Influenza Vaccine (#1) 2025 , 05/26/2020, 04/28/2019, Additional history exists Lipid Panel 08/17/2026 08/17/2023 Insurance [facility] MEDICAID
--- OUTSIDE RECORDS SUMMARY | 2025-02-12 16:59 | XMS_ITS | Encounter Summary ---
Author Organization [employer] ([place], [place], [place], [place]) Address [address] [place] [address] Care Team Providers Care Supervisor Shop Name Role Phone Unavailable Primary Care Provider Unavailabl e Encounter Details Date Type Department Care Team (Late st Contact Info) Description 11/12/2018 Transcribed Document [facility] [place] [facility] [place] [address] ProviderJulito MD [address] [place] [phone] Social History Tobacco Use Types Packs/Day Years Used Date Smoking Tobacco: Never Assessed Comments Unknown Sex and Gender Information Value Date Recorded Sex Assigned at Unknown 01/19/2022 4:47 PM CDT Legal Sex Male 6:33 PM CDT Gender Identity Not on file Sexual Orientation Not on file documented as of this encounter Miscellaneous Notes * Cerner Conversion Note - Julito ProviderMD - 11/12/2018 2:41 PM CDT CR Chest 1 Vw Portable Ordered: 11/12/2018 Modified Reason for Exam: pain 11/12/2018 14:02 11/12/2018 14:41 (NICOLAS MCALLISTER PA) Reviewed by Provider, No further action required x1 documented in this encounter Plan of Treatment Not on file documented as of this encounter Visit Diagnoses Not on filedocumented in this encounter
--- OUTSIDE RECORDS SUMMARY | 2025-02-12 16:59 | XMS_ITS | Encounter Summary ---
Author Organization [employer] ([place], [place], [place], [place]) Address [address] [place] [address] Care Team Providers Care Datapower Consultant Name Role Phone Unavailable Primary Care Provider Unavailabl e Encounter Details Date Type Department Care Team (Late st Contact Info) Description 11/12/2018 Transcribed Document [facility] [place] [facility] [place] [address] ProviderJulito MD [address] [place] [id number] Social History Tobacco Use Types Packs/Day [...] MD - 11/12/2018 11:08 AM CDT ED Triage Entered On: 11/12/2018 11:17 EDT Performed On: 11/12/2018 11:11 EDT by SAM PARISI TANK CAR MECHANIC Triage Across the Room Triage Date/Time : 11/12/2018 11:11 EDT Chief Complaint : Small burning pain in epigastric area since last night. Has hx of GERD. SAM PARISI RN - 11/12/2018 11:11 EDT DCP GENERIC CODE Tracking Acuity : 3 - Urgent Tracking Group : [facility] [place] SAM PARISI RN - 11/12/2018 11:11 EDT Mode of Arrival : Ambulatory Transported to ED by : Private vehicle To Room Via : Ambulate Accompanied By : Unaccompanied ED Vital Signs : Document Height & Weight : Document ED Allergies : Document ED Reason for Visit : Document Tetanus Immunization : Greater than 5 years SAM PARISI RN - 11/12/2018 11:11 EDT Infectious Disease History Infectious Disease History : None Fever/Chills Last 48 Hours : No Travel To Regions with Travel Advisories : No Travel Outside [place] Within Last 30 Days : No Contact With Traveler to Advisory Region : No Tuberculosis Symptoms : None SAM PARISI RN - 11/12/2018 11:11 EDT Vital Signs ED Temperature Source : Oral Temperature Mode : Fahrenheit Temperature, Fahrenheit : 98.4 Deg F ED Pain : Yes Clinical Temperature, C : 36.9 Deg C Oxygen Therapy Mode : Room air Peripheral Pulse Rate : 68 bpm Respiratory Rate : 16 Breaths/Min Systolic Blood Pressure : 146 mmHg (HI) Diastolic Blood Pressure : 78 mmHg Oxygen Saturation : 94 % SAM PARISI RN - 11/12/2018 11:11 EDT Allergy (As Of: 11/12/2018 11:17:46 EDT) Allergies (Active) penicillin Estimated Onset Date: Unspecified ; Created By: CONTRIBUTOR_SYSTEM, [employer] BJEFFRY; Reaction Status: Active ; Category: Drug ; Substance: penicillin ; Type: Allergy ; Updated By: CONTRIBUTOR_SYSTEM [employer] BJEFFRY; Reviewed Date: 10/27/2007 12:59 EDT Diagnosis Control ED (As Of: 11/12/2018 11:17:46 EDT) Diagnoses(Active) Chest pain Date: 11/12/2018 ; Diagnosis Type: Reason For Visit ; Confirmation: Complaint of ; Clinical Dx: Chest pain ; Classification: Medical ; Clinical Service: Emergency medicine ; Code: PNED ; Probability: 0 ; Diagnosis Code: [id number] ED Height and Weight Height Source : Stated Height Entry Format : [place]k Height, Feet : 5 ft(Converted to: 152 cm, 60 Inch) Height, Inches : 10 Inch(Converted to: 0 ft 10 Inch, 25.40 cm) Clinical Height : 177.8 cm Weight Source, ED : Critical estimated dosing weight Weight Entry Format : [place]k Weight, Pounds : 232 lb Clinical Dosing Weight : 105.45 kg Body Surface Area (BSA) : 2.23 m2 Body Mass Index : 33.4 kg/m2 (HI) [place] Body Weight (IBW) : 72.02 kg SAM PARISI, JAYCEE - 11/12/2018 11:11 EDT Pain Assessment Pain Assessment : Initial assessment Pain Scale Used : 0-10 Scale Location : Epigastric Onset : Gradual Quality : Burning SAM PARISI RN - 11/12/2018 11:11 EDT Pain Scale Intensity : 1 SAM PARISI RN - 11/12/2018 11:11 EDT Image 4 - Images currently included in the form version of this document have not been included in the text rendition version of the form. documented in this encounter Plan of Treatment Not on file documented as of this encounter Visit Diagnoses Not on filedocumented in this encounter
--- NOTE | 2025-02-12 17:02 | XR_ITS ---
PROCEDURE INFORMATION: Exam: XR Chest Exam date and time: 02/12/2025 5:21 PM Age: 59 years old Clinical indication: Pain; Chest pressure; Additional info: Chest pain, smoker, copd TECHNIQUE: Imaging protocol: Radiologic exam of the chest. Views: 2 views. COMPARISON: CR XR CHEST 2V 11/16/2024 4:43 PM FINDINGS: Lungs: Unremarkable. No consolidation. Pleural spaces: Unremarkable. No pleural effusion. No pneumothorax. Heart/Mediastinum: Unremarkable. No cardiomegaly. Bones/joints: Unremarkable. IMPRESSION: No acute findings.
[2025-02-12 17:13] LABS: Hematocrit 35.6 % (42.0-52.0); Hemoglobin 13.0 g/dL (14.1-18.0); Immature Granulocytes % 0.3 %; Mean Corpuscular HGB Conc 36.5 g/dL (31.8-35.4); Mean Corpuscular Hemoglobin 31.1 pg (27.0-31.2); Mean Corpuscular Volume 85.2 fl (80-94); Nucleated Red Blood Cells % 0 %; Platelet Count 174 K/mm3 (142-424); Red Blood Count 4.18 M/mm3 (4.60-6.20); Red Cell Distribution Width-SD 38.8 fL; White Blood Count 7.0 K/mm3 (4.8-10.8)
[2025-02-12 17:26] LABS: Alanine Aminotransferase 21 U/L (12-78); Albumin Level 4.1 g/dl (3.5-5.0); Albumin/Globulin Ratio 1.8 (1.1-1.8); Alkaline Phosphatase 100 U/L (38-126); Anion Gap 11.0 mEq/L (5-15); Aspartate Amino Transferase 32 U/L (17-59); Bilirubin,Total 0.5 mg/dl (0.2-1.3); Blood Urea Nitrogen 13 mg/dl (9-20); Calcium 9.1 mg/dl (8.4-10.2); Carbon Dioxide 30 mmol/L (22.0-30.0); Chloride 99 mmol/L (98-107); Creatinine Clearance Estimated 132 mL/min (50-200); Creatinine,Serum 0.90 mg/dl (0.66-1.25); Estimated Glomerular Filt Rate 86 ml/min (>60); GFR (African American) 104 ML/MIN (>60); Globulin 2.3 g/dL (1.3-3.2); Glucose 136 mg/dl (74-100); Potassium 4.0 mmoL/L (3.5-5.1); Sodium 136 mmol/L (136-145); Total Protein,Serum 6.4 g/dl (6.3-8.2)
[2025-02-12] MEDS: ACETAMINOPHEN 500MG TAB 1000 MG PO (17:27)
[2025-02-12] MEDS: ONDANSETRON 4MG/2ML VIAL 4 MG IV (17:27)
[2025-02-12] MEDS: 0.9 % SODIUM CHLORIDE 1000ML 1,000 ML 999 ML IV (17:27)
[2025-02-12] MEDS: BELLADONNA ALKALOIDS 60 ML ML PO (17:27)
[2025-02-12] MEDS: KETOROLAC 30MG/ML VIAL 15 MG IV (17:28)
[2025-02-12 17:32] LABS: D-Dimer 0.32 ug/mL (0.0-0.5)
[2025-02-12 17:41] LABS: NT Pro Brain Natriuretic Pep. 468 pg/mL (0-125)
[2025-02-12 17:49] LABS: Troponin I < 0.01 ng/ml (0.00-0.034)
[2025-02-12 18:32] LABS: INR 2.84 (0.9-1.1); Prothrombin Time 29.2 seconds (10.1-12.5)
[2025-02-12 18:57] LABS: Triiodothryronine (T3) Uptake 32 % (23.5-40.5)
[2025-02-12 18:58] LABS: Free Thyroxine Index 2.5 ug/dL (5.93-13.13); T4 (Thyroxine) 7.9 ug/dl (5.53-11.0)
[2025-02-12 19:12] LABS: Thyroid Stimulating Hormone 1.42 uIU/mL (0.465-4.68)
--- NOTE | 2025-02-12 19:26 | PC.NURSE ---
Took patient a blanket; informed him of troponin process and what to expect
[2025-02-12 20:40] LABS: Troponin I < 0.01 ng/ml (0.00-0.034)
== END 2025-02-12 20:48 | disposition home or self-care (01) ==
PROVIDERS: Physician Assistant; Emergency Provider Student in an Organized Health Care Education/Training Program
DX: R07.9 Chest pain, unspecified (principal); F17.210 Nicotine dependence, cigarettes, uncomplicated; I44.0 Atrioventricular block, first degree; I10 Essential (primary) hypertension; E78.5 Hyperlipidemia, unspecified; K21.9 Gastro-esophageal reflux disease without esophagitis; Z86.718 Personal history of other venous thrombosis and embolism; Z79.01 Long term (current) use of anticoagulants
CPT/HCPCS: 71046; 80053; 83880; 84436; 84443; 84479; 84484; 85025; 85378; 85610; 93005; 96361; 96374; 96375; 99285; J1885; J2405; J7030

== ENCOUNTER 2025-04-07 13:02 | Emergency (ER) | payer MEDICAID, SELFPAY ==
[2025-04-07 14:00] VITALS: BP 115/71; PULSE 60; RESP 18; TEMP 36.6; O2SAT 96; BMI 36.1
--- OUTSIDE RECORDS SUMMARY | 2025-04-07 14:08 | XMS_ITS | Clinical Summary ---
Author Organization [facility] Address [address] [place] [address] Care Team Providers Care Canvas Shop Laborer Name Role Phone Fauzia Sterling MD Primary Care Provider [phone] Allergies Active Allergy Reactions Criticality Noted Date [...] Date Last Done Comments [facility]-Depression Screening 1964 [facility]-Infant/Child/Adol SDOH Screenings 1964 [facility]- SDOH Screenings 1982 [facility]-Adult SDOH Screenings 1982 [facility]-DTaP,Tdap,and Td Vaccines (1 - Tdap) 12/25/1983 CT Colonography 2009 Colonoscopy 2009 FIT-DNA 2009 FIT 2009 FOBT 2009 Sigmoidoscopy 2009 [facility]-Colorectal Cancer Screening 2009 [facility]-Pneumococcal Vaccine: 50+ Years (1 of 1 - PCV) 2014 [facility]-Zoster Vaccines (1 of 2) 2014 [id number] Vaccine (2 - 2025-26 season) 2025 03/10/2021 [facility]-Influenza Vaccine (#1) 03/23/202505/26, 04/28/2019, 05/15/2018, Additional history exists [facility]-RSV Vaccine: 60+ Years or (1 - 1-dose 75+ series) 12/25/2039 [facility]-Diabetes: Hemoglobin A1C Discontinued 11/07/2021, 07/27/2020, 02/12/2020, [...] on patient's age to complete this topic Insurance MEDICAID Care Teams Canvas Shop Laborer Relationship Specialty Start Date End Date Fauzia Sterling MD [address] [place] [id number] PCP - General 12/03/20
--- NOTE | 2025-04-07 14:13 | ED_ITS ---
<Statement entered by Abhi Song MD - 04/07/25 20:51> I was consulted by the [facility], and we discussed the complexity of the problems being addressed. I approve the treatment and management plan for this patient's care in the emergency department, thus performing a substantive portion of the medical decision making. Abhi Song MD Discharge Plan Disposition Patient Disposition: Home, Self-Care Condition: Good Prescriptions Prescriptions: No Action buspirone 5 MG tablet 5 mg PO BID omeprazole 40 capsule,delayed release(DR/EC) 40 mg PO DAILY warfarin [Coumadin] 10 MG tablet 10 mg PO SUMOWEFR lisinopril-hydrochlorothiazide 1 EACH tablet 1 tab PO DAILY Rx Instructions: 20/12.5mg aspirin 81 MG tablet,chewable 81 mg PO DAILY carvedilol 25 mg tablet 25 mg PO DAILY Patient Comments: TAKE 1 TABLET BY MOUTH TWICE DAILY WITH MEALS atorvastatin 20 mg tablet 20 mg PO DAILY cetirizine 10 mg tablet 10 mg PO DAILY potassium chloride 20 mEq tablet,ER particles/crystals 20 meq PO DAILY albuterol sulfate [Ventolin HFA] 90 mcg/actuation HFA aerosol inhaler 2 puff INHALATION Q4HP PRN (Reason: Shortness Of Breath) escitalopram oxalate 20 mg tablet 20 mg PO DAILY amlodipine 10 mg tablet 10 mg PO DAILY warfarin 5 mg tablet 5 mg PO TUTHSA buprenorphine-naloxone 8-2 mg tablet, sublingual 1 tab SUBLINGUAL DAILY Referrals Follow up/Referrals: Fauzia Sterling MD [Primary Care Provider, Medical] - See instructions Activity Restrictions/Add. Instructions Additional Instructions/Restrictions: Please return to the emergency department with any worsening signs or symptoms. Please follow-up with your primary care doctor in the upcoming days/weeks, could benefit from some neuropathic medication such as gabapentin or Lyrica. Would also benefit from MRI of the lumbar spine. Please utilize ibuprofen Tylenol as needed for symptomatic relief. Clinical Impressions Clinical Impression: Left lumbar radiculopathy Instructions Patient Instructions: Lumbar Radiculopathy Print Language Print Language: German Discharge ED Provider: Abhi Song General Adult HPI General Chief complaint: PAIN Stated complaint: L Leg Pain, numbness, & Burning Time Seen by Provider: 04/07/25 14:11 Mode of Arrival: Ambulatory Source of Information: Patient Limitations: No Limitations Description of Symptoms (Recalled from ER Triage Doc. by RN): PT REPORTS INTERMITTENT LEFT LEG BURNING AND NUMBNESS X 1 MONTH. DENIES NEW BACK PAIN. DENIES LOSS OF BOWEL OR BLADDER. TAKES BLOOD THINNER, WARFARIN. HX OF BLOOD CLOTS IN LEG, LAST 20 YEARS AGO History of Present Illness HPI narrative: 59-year-old male presents the emergency department with a 1 month history of left lower extremity numbness tingling burning , admits back pain, which is somewhat chronic for him, denies any radicular type symptomatology, denies any upper or lower extremity weakness, denies any saddle anesthesia, denies any urinary bladder or bowel dysfunction, patient denies any fever chills chest pain shortness of breath nausea vomiting constipation diarrhea no abdominal pain, no urinary type symptomatology, patient has past medical history consistent with DVTs on Coumadin therapy, with therapeutic/supratherapeutic INR levels reported as outpatient, patient endorses dated the patient history of neck problem , hyperlipidemia, hypertension, MDD/HIEU. Initial triage vitals are unremarkable. Please note that above description of symptoms, in this electronic medical record under categorization of recalled from ER triage doctor by RN are reflective of an initial nursing assessment, however, is not reflective of my full history and physical exam that was personally taken and clarified. Consequentially, this preceding description of symptoms, which may include the patient's categorized chief complaint in the EMR, do not reflect my personal clinical impression, and the ultimate description of history of present illness and patient stated complaints should be deferred to this section of the note. Unless stated otherwise or congruent with this section of the note, additional signs, symptoms, or incongruence should be interpreted as inaccurate with my clinical impression. Onset (ago): month(s) Related Data Home Medications ?Medication ?Instructions ?Recorded ?Confirmed warfarin 10 mg tablet (Coumadin) 10 mg PO SUMOWEFR 11/17/24 aspirin 81 mg chewable tablet 81 mg PO DAILY heart 11/16/24 lisinopril 20 1 tab PO DAILY 04/12/1810/22 mg-hydrochlorothiazide 12.5 mg tablet Held on 11/17/24. Instructions: Resume on 12/01/24. Please hold this medication until you follow-up with your PCP. buspirone 5 mg tablet 5 mg PO BID Anxiety 09/28/18 11/17/24 omeprazole 40 mg capsule,delayed 40 mg PO DAILY 11/16/24 release albuterol sulfate 90 mcg/actuation 2 puff inhalation Q 4HP PRN 11/16/24 11/17/24 aerosol inhaler (Ventolin HFA) Shortness Of Breath atorvastatin 20 mg tablet 20 mg PO DAILY 11/16/2410/22 carvedilol 25 mg tablet 25 mg PO DAILY 11/16/2410/22 cetirizine 10 mg tablet 10 mg PO DAILY 11/16/2410/22 escitalopram oxalate 20 mg tablet 20 mg PO DAILY 11/1611/16/24 potassium chloride 20 mEq 20 meq PO DAILY 11/16/24 tablet,extended release(part/cryst) amlodipine 10 mg tablet 10 mg PO DAILY 11/17/2410/22 buprenorphine 8 mg-naloxone 2 mg 1 tab sublingual AZAR Y 11/17/24 11/17/24 sublingual tablet warfarin 5 mg tablet 5 mg PO TUTHSA 11/17/2410/22 Allergies Allergy/AdvReac Type Severity Reaction Status Date / Time cefdinir Allergy Cramping Verified 11/16/24 18:58 of the Muscles Penicillins Allergy Other Verified 11/16/24 18:58 [facility] Disclaimer: The information contained in this section may have been updated after the patient was seen, as this information can be updated by other users. Medical History (Updated 04/07/25 @ 16:10 by CYNTHIA Overton) Chest pain Sweating Patient left without being seen Arrhythmia Left thigh pain Left thigh pain Headache Hypokalemia Palpitation Atypical chest pain Leg pain, left Chest pain Benign paroxysmal positional vertigo Hypertension Deep vein thrombosis (DVT) Surgical History H/O foot surgery Family History Other Family history of cancer Social History Smoking Status: Current every day smoker tobacco type: cigarettes packs per day: 2 second hand exposure: Yes alcohol intake: never current occupational status: employed Travel in the last 8 weeks?: None housing: house caffeine: Yes Have you lived/traveled outside US in past 30 days?: No Contact w/someone who lives/traveled outside US past 30 days?: No Exposure to someone with infectious disease in past 14 days?: No Do you have a fever (greater than 100.4 F or 38 C)?: No Have you tested positive for COVID-19?: No Exposed to someone with COVID-19 in past 14 days?: No Do you have a sore throat?: No Do you have a cough?: No Do you have any weakness?: No Do you have any diarrhea?: No Are you experiencing any unusual bleeding?: No Do you have any muscle aches/pain?: No Do you have any abdominal pain?: No Are you experiencing loss of taste or smell?: No Other Medical History Have you received the Flu Vaccine for this season: No Have you received the Pneumonia Vaccine: No ROS Obtained: Yes All systems reviewed & no additional complaints except as documented Physical Exam General General appearance: alert and in no apparent distress Head Head exam: atraumatic and normocephalic Eye Eye exam: Present PERRL and EOMI ENT ENT exam: Present mucous membranes moist Neck Neck exam: Present normal inspection Chest Chest inspection: Present normal inspection and symmetric chest wall rise Respiratory Respiratory exam: Present normal lung sounds bilaterally; Absent respiratory distress Cardiovascular Cardiovascular exam: Present regular rate and normal rhythm Abdominal Exam Abdominal exam: Present soft; Absent tenderness, guarding, rebound or rigidity Extremities Exam Extremities exam: Present normal inspection Back Exam Back exam: Present normal inspection and full ROM; Absent tenderness, paraspinal tenderness, vertebral tenderness, straight leg raise (R) or straight leg raise (L) Neurological Exam Neurological exam: Present alert, oriented X3 and other (5 out of 5 strength in the bilateral lower and upper extremities, negative straight leg test bilaterally, no gross sensation deficit.) Psychiatric Psychiatric exam: Present normal affect Skin Skin exam: Present warm and dry Medical Decision Making Medical Records Medical records reviewed: Yes I reviewed the patient's medical records. Screening: Per USPSTF and CDC recommendations, given the prevalence of disease in our region, it is our hospital?s policy to screen for HIV and viral Hepatitis for all patients aged 18 and over and those with ongoing risk factors. Mack Inquiry Pt receiving controlled substance: No Mack was queried for this patient: No Vital Signs: 04/07/25 14:00 04/07/25 14:30 04/07/25 15:00 Temperature 97.9 F Temperature Source Oral Pulse Rate 56 L 59 L Pulse Rate [Radial] 60 Respiratory Rate 18 Blood Pressure 109/70 L 115/75 Blood Pressure [Right Arm] 115/71 Blood Pressure Mean [Right Arm] 85 Blood Pressure Source [Right Arm] Automatic Cuff Blood Pressure Position [Right Arm] Sitting 02 Sat by Pulse Oximetry 96 94 L 95 Oxygen Delivery Method Room Air 04/07/25 15:30 Temperature Temperature Source Pulse Rate 57 L Pulse Rate [Radial] Respiratory Rate Blood Pressure 116/73 Blood Pressure [Right Arm] Blood Pressure Mean [Right Arm] Blood Pressure Source [Right Arm] Blood Pressure Position [Right Arm] 02 Sat by Pulse Oximetry 94 L Oxygen Delivery Method Lab Data Lab results reviewed: Yes I reviewed the patient's lab results. Lab Results 04/07/25 15:30: WBC 7.0, RBC 4.45 L, Hgb 13.7 L, Hct 38.9 L, MCV 87.4, MCH 30.8, MCHC 35.2, RDW 12.4, Plt Count 173, MPV 9.0, Neut % (Auto) 64.4, Lymph % (Auto) 21.8, Bryan % (Auto) 9.3, Eos % (Auto) 3.2, Baso % (Auto) 1.0, Neut # (Auto) 4.5, Lymph # (Auto) 1.5, Bryan # (Auto) 0.7, Eos # (Auto) 0.2, Baso # (Auto) 0.1, PT 25.3 H, INR 2.43 H, Sodium 138, Potassium 4.2, Chloride 101, Carbon Dioxide 30, Anion Gap 11.2, BUN 16, Creatinine 0.90, Estimated Creat Clear 137, Estimated GFR 86, Est GFR ( Amer) 104, Glucose 109 H, Calcium 9.3, Total Bilirubin 0.8, AST 28, ALT 15, Alkaline Phosphatase 89, Total Protein 7.2, Albumin 4.4, Globulin 2.8, Albumin/Globulin Ratio 1.6 04/07/25 15:30 04/07/25 15:30 Orders (Tests/Meds): ED MEDICATIONS Discontinued Medications Generic Name Dose Route Start Last Admin Trade Name Freq PRN Reason Stop Dose Admin Ketorolac Tromethamine 15 mg 04/07/25 14:38 04/07/25 15:38 Ketorolac 15mg/Ml Vial IV 04/07/25 14:39 15 mg ONCE ONE Administration ORDERS Category Date Time Status CT lumbar spine wo con Stat Cat Scan 04/07/25 14:38 Completed Complete Blood Count Auto Diff Stat Lab 04/07/25 15:30 Completed Comprehensive Metabolic Panel Stat Lab 04/07/25 15:30 Completed PT INR [Prothrombin Time INR] Stat Lab 04/07/25 15:30 Completed Medical Decision Narrative: 59-year-old male presents to the emergency department with left lower extremity numbness tingling and burning for 1 month, differential diagnose include but not limited to, lumbar radiculopathy, herniated nucleus pulposus, idiopathic polyneuropathy, diabetic polyneuropathy, leg sprain/strain, among others. I discussed this patient's case with the attending physician Will obtain basic laboratory studies, PT/INR, and CT lumbar spine without contrast for further evaluation/characterization. Will give 15 mg IV Toradol for pain. CT lumbar spine was reviewed along with the corresponding radiologic report, moderate degenerative disc disease with multilevel canal stenosis MRI follow-up may be consideration as more sensitive exam no evidence of fracture. CBC unremarkable, stable anemia CMP unremarkable PTT is elevated at 25.3, INR is elevated 2.43. I discussed the results with the patient the bedside, patient is neurovascularly intact, 5 out of 5 strength in bilateral lower and upper extremities, no gross sensation deficit, no other red flag signs or symptoms, patient to follow-up with the PCP for MRI of the lumbar spine, could trial some neuropathic medication such as gabapentin and Lyrica. Otherwise utilize ibuprofen and Tylenol as needed for symptomatic relief. Patient voiced understanding and agreement with current treatment plan/discharge plan. Thought to be more of a lumbar radiculopathy/peripheral neuropathy. Patient was given strict ED return precautions. Critical Care Critical Care Time Critical Care Time: No
[2025-04-07 14:30] VITALS: BP 109/70; PULSE 56; O2SAT 94
--- NOTE | 2025-04-07 14:38 | CT_ITS ---
FINAL REPORT TECHNIQUE: Thin section axial CT with sagittal and coronal reconstructions This study was performed with techniques to keep radiation doses as low as reasonably achievable, (ALARA). Individualized dose reduction techniques using automated exposure control or adjustment of mA and/or kV according to the patient's size were employed. CLINICAL HISTORY: Left lumbar radiculopathy COMPARISON: none FINDINGS: CT LUMBAR SPINE No fracture is present. Mild dextroscoliosis is noted. No subluxation. Evaluation of the spinal canal disc is limited due to body habitus. T12-L1: Mild annular disc bulge. L1-2: Moderate annular disc bulge with endplate spurring asymmetric to the right. Mild central canal stenosis. L2-3: Moderate annular disc bulge with mild canal stenosis. L3-4: Mild annular disc bulge and facet overgrowth. Borderline central canal stenosis. Mild neuroforaminal narrowing. L4-5: Moderate annular disc bulge. Moderate facet overgrowth. Moderate central canal stenosis and neuroforaminal narrowing. L5-S1: Minimal annular disc bulge without canal stenosis. IMPRESSION: Moderate degenerative changes with multilevel canal stenosis. MRI follow-up may be considered as a more sensitive exam. No evidence of fracture. Reviewed, Interpreted and Dictated by Isha Christian MD Transcribed by Sarah Mccall Authenticated and [facility]
[2025-04-07 15:00] VITALS: BP 115/75; PULSE 59; O2SAT 95
[2025-04-07 15:30] VITALS: BP 116/73; PULSE 57; O2SAT 94
[2025-04-07] MEDS: KETOROLAC 15MG/ML VIAL 15 MG IV (15:38)
[2025-04-07 15:39] LABS: Hematocrit 38.9 % (42.0-52.0); Hemoglobin 13.7 g/dL (14.1-18.0); Immature Granulocytes % 0.3 %; Mean Corpuscular HGB Conc 35.2 g/dL (31.8-35.4); Mean Corpuscular Hemoglobin 30.8 pg (27.0-31.2); Mean Corpuscular Volume 87.4 fl (80-94); Nucleated Red Blood Cells % 0 %; Platelet Count 173 K/mm3 (142-424); Red Blood Count 4.45 M/mm3 (4.60-6.20); Red Cell Distribution Width-SD 39.8 fL; White Blood Count 7.0 K/mm3 (4.8-10.8)
[2025-04-07 15:48] LABS: Albumin Level 4.4 g/dl (3.5-5.0); Chloride 101 mmol/L (98-107); Potassium 4.2 mmoL/L (3.5-5.1); Sodium 138 mmol/L (136-145)
[2025-04-07 15:51] LABS: Alanine Aminotransferase 15 U/L (12-78); Albumin/Globulin Ratio 1.6 (1.1-1.8); Alkaline Phosphatase 89 U/L (38-126); Anion Gap 11.2 mEq/L (5-15); Aspartate Amino Transferase 28 U/L (17-59); Bilirubin,Total 0.8 mg/dl (0.2-1.3); Blood Urea Nitrogen 16 mg/dl (9-20); Calcium 9.3 mg/dl (8.4-10.2); Carbon Dioxide 30 mmol/L (22.0-30.0); Creatinine Clearance Estimated 137 mL/min (50-200); Creatinine,Serum 0.90 mg/dl (0.66-1.25); Estimated Glomerular Filt Rate 86 ml/min (>60); GFR (African American) 104 ML/MIN (>60); Globulin 2.8 g/dL (1.3-3.2); Glucose 109 mg/dl (74-100); Total Protein,Serum 7.2 g/dl (6.3-8.2)
[2025-04-07 15:53] LABS: INR 2.43 (0.9-1.1); Prothrombin Time 25.3 seconds (10.1-12.5)
[2025-04-07 16:37] VITALS: BP 145/90; PULSE 59; RESP 18; TEMP 36.6; O2SAT 97
== END 2025-04-07 16:45 | disposition home or self-care (01) ==
PROVIDERS: Physician Assistant; Emergency Provider Student in an Organized Health Care Education/Training Program; PCP Family Medicine
DX: M54.16 Radiculopathy, lumbar region (principal); M79.605 Pain in left leg; F17.210 Nicotine dependence, cigarettes, uncomplicated; I10 Essential (primary) hypertension; Z86.718 Personal history of other venous thrombosis and embolism; Z79.01 Long term (current) use of anticoagulants
CPT/HCPCS: 72131; 80053; 85025; 85610; 96374; 99284; J1885

== ENCOUNTER 2025-07-17 15:11 | Emergency (ER) | payer MEDICAID, SELFPAY ==
--- OUTSIDE RECORDS SUMMARY | 2025-05-04 10:17 | XMS_ITS | Encounter Summary ---
Author Organization [facility] yste Address [address] [place] [address] Care Team Providers Care Store Group Manager Name Role Phone Fauzia Sterling MD Primary Care Provider [phone] Reason for Referral * Medical Care (Routine) - Closed Specialty Diagnoses / Procedures Referred By Contac t Referred To Contact Sleep Medicine Diagnoses SHANNAN (obstructive sleep apnea) Procedures Home Sleep Study Rae Truong APRN [address] [place] [address] Phone: tel: fax: [facility] [address] [address] Phone: tel: fax: Referral ID Status Reason Start Date Expiration Date Visits Re quested Visits Authorized [id number] Closed 03/24/2025 06/23/2026 1 1 Reason for Visit * Medical Care (Routine) - Closed Specialty Diagnoses / Procedures Referred By Contac t Referred To Contact Sleep Medicine Diagnoses SHANNAN (obstructive sleep apnea) Procedures Home Sleep Study Rae Truong APRN [address] [place] [address] Phone: tel: fax: [facility] [address] [address] Phone: tel: fax: Referral ID Status Reason Start Date Expiration Date Visits Re quested Visits Authorized [id number] Closed 03/24/2025 06/23/2026 1 1 Encounter Details Date Type Department Care Team (Fish thomas Contact Info) Description 05/04/2025 11:17 AM EDT Hospital Encounter [facility] [address] [place] [address] Rae Truong, MENTAL HEALTH CONSULTANT [address] [place] [address] SHANNAN (obstructive sleep apnea) Social History Tobacco Use Types Packs/Day Years Used Date Smoking Tobacco: Every Day Cigarettes 1.5 36 Started: 07/1989 Passive Smoke Exposure: Current Smokeless Tobacco: Never Comments:Smoking 1-1 1/2 pac k a day Alcohol Use Standard Drinks/Week Comments No 0 (1 standard drink = 0.6 oz pur e alcohol) [facility] Utilities Answer Date Recorded In the past 12 months has [employer], gas, oil, or water [employer] threatened to shut off services in your [...] Information Value Date Recorded Sex Assigned at Male 03/17/2025 8:35 AM EDT Legal Sex Male 12:07 PM EDT Gender Identity Not on file Sexual Orientation Not on file documented as of this encounter Last Filed Vital Signs Vital Sign Reading Time Taken Comments Blood Pressure - - Pulse - - Temperature - - Respiratory Rate - - Oxygen Saturation - - Inhaled Oxygen Concentration - - Weight 115 kg (253 lb 8.5 oz) 05/04/2025 11:34 A M EDT Height 175 cm (5' 8.9 ) 05/04/2025 11:34 AM EDT Body Mass Index 37.55 05/04/2025 11:34 AM EDT documented in this encounter Plan of Treatment Upcoming Encounters Date Type Department Care Team (Late st Contact Info) Description 07/28/2025 9:30 AM EST Office Visit [facility] [address] [place] [address] Fauzia Sterling MD [address] [place] [address] 01/01/2026 11:45 AM EDT Appointment [facility] [address] [facility] [address] [place] [address] documented as of this encounter Goals Goal Patient Goal Type Associated Problems Recent Progress Patient-Stated? Author Track and Manage My Blood Pressure Patient Goals On track( 025 10:45 AM EST) No Claudia Reno, RN [...] or if there are questions about it. documented as of this encounter Procedures Procedure Name Priority Date/Time Associated Diagnosis Comments HST Routine 05/05/2025 3:30 AM EDT SHANNAN (obstructive sleep apnea) documented in this encounter Results * HST (05/05/2025 3:30 AM EDT) Impressions SLEEP MEDICINE - 05/11/2025 3:16 PM EDT 1. Mild obstructive sleep apnea. 2. Nocturnal hypoxemia. (59.4% time below 90% O2 sat) 3. Snoring. RECOMMENDATIONS: 1. Available data is suggestive of mild obstructive sleep apnea. Patient was noted to have significant sleep hypoxia which is out of proportion to the degree of sleep apnea. Consider other cardiorespiratory etiology for hypoxia. Depending on symptoms and risk profile consider auto CPAP trial 4 to 20 cm of water pressure and follow up with CPAP download to make sure we are not missing any other pathology. Alternatively mandibular advancement device can be considered. With treatment would recommend overnight oximetry to ensure correction of sleep hypoxia. 2. Discuss good sleep hygiene habits, including but not limited to fixed wake up and sleep time, avoid alcohol 4 hours before sleep and not driving while drowsy. Maintain ideal body weight. I have conducted an epoch by epoch review of the raw data and agree with the interpretation. Les Montgomery MD, [facility] Pulmonary Critical care and Sleep medicine Narrative SLEEP MEDICINE - 05/11/2025 3:16 PM EDT PATIENT NAME: Jesus Perales : 1965; Age: 59 y.o. OVERNIGHT UNATTENDED TYPE 3 POLYSOMNOGRAM DATE OF STUDY: 2024. REQUESTING PHYSICIAN: Rae Truong REASON FOR STUDY: Somnolence STUDY METHODOLOGY: Patient had a home sleep test with an etechies.in Night One device that measured airflow at the nose and mouth. It measured thoracic respiratory effort using respiratory inductance plethysmography. It measured oxygen saturation and determined pulse rate. Body position was recorded. Snoring was judged by transducer vibration. It was scored using standard techniques. Hypopneas were scored according to AASM definition 1B (4% desaturation). The patient is a 59 year old patient with BMI 37.6 and clinically strong suspicion for obstructive sleep apnea. Patient met criteria for home sleep study testing. STUDY INTERPRETATION: Total recording time: 390.1 minutes. Monitoring time: 306 minutes. Apnea-hypopnea index: 5.9. Supine sleep: 184.9 minutes Snore index: 37.7 %. Average pulse: 64.2. Oxygen desaturation index: 3.9. Lowest saturation: 84%. Time below 90% O2 sat: 231.8 min us Rae Debora Truong MENTAL HEALTH CONSULTANT [facility] ORDERABLES Final Result SLEEP MEDICINE documented in this encounter Visit Diagnoses Diagnosis SHANNAN (obstructive sleep apnea) Obstructive sleep apnea (adult) (pediatric) documented in this encounter Additional Health Concerns Infection Onset Date Last Indicated Resolved Time Other Comment:Parainfluenza 3 per RVP 01.01.2025 01/02/2025 01/02/2025 documented as of this encounter Care Teams Store Group Manager Relationship Specialty Start Date End Date Fauzia Sterling MD [address] [place] [address] PCP - General Family Medicine 09/03/18 documented as of this encounter
--- OUTSIDE RECORDS SUMMARY | 2025-06-02 09:05 | XMS_ITS | Encounter Summary ---
Author Organization [facility] ystem Address [address] [place] [address] Care Team Providers Care Coal Unloader Name Role Phone Fauzia Sterling MD Primary Care Provider [phone] Encounter Details Date Type Department Care Team (Late st Contact Info) Description 06/02/2025 9:05 AM EST Lab [facility] [address] [facility] [address] [place] [address] Chronic deep vein thrombosis (DVT) of proximal vein of lower extremity, unspecified laterality; Anticoagulant long-term use Social History Tobacco Use Types Packs/Day Years Used Date Smoking Tobacco: Every Day Cigarettes 1.5 36 Started: 07/1989 Passive Smoke Exposure: Current Smokeless Tobacco: Never Comments:Smoking 1-1 1/2 pac k a day Alcohol Use Standard Drinks/Week Comments No 0 (1 standard drink = 0.6 oz pur e alcohol) [facility] Utilities Answer Date Recorded In the past 12 months has [employer], gas, oil, or water [employer] threatened to shut off services in your [...] time in the past 12 m [facility], were you homeless or living in a intermediate (including now)? No 11/18/2024 Abuse Screen Answer [...] Description 07/28/2025 9:30 AM EST Office Visit [facility] [address] [place] [address] Fauzia Sterling MD [address] [place] [address] 01/01/2026 11:45 AM EDT Appointment [facility] [address] [facility] [address] [place] [address] documented as of this encounter [...] Procedure Name Priority Date/Time Associated Diagnosis Comments PROTIME-INR Routine 06/02/2025 9:04 AM EST Chronic deep vein thrombosis (DVT) of proximal vein of lower extremity, unspecified laterality Anticoagulant long-term use documented in this encounter Results * (ABNORMAL) Protime-INR (06/02/2025 9:04 AM EST) Protime 29.4(H) 12.2 - 15.3 Seconds 06/02/2025 2:00 PM EST [facility] INR 2.57(H) 0.89 - 1.12 06/02/2025 2:00 PM EST [facility] Blood Venipuncture / Unknown 06/02/2025 9:04 AM EST 06/02/2025 9:04 AM EST Fauzia Sterling MD LAB BLOOD ORDERABLES Final Re sult [facility]
[address] [place] [address], documented in this encounter Visit Diagnoses Diagnosis Chronic deep vein thrombosis (DVT) of proximal vein of lower extremity, unspecified laterality Anticoagulant long-term use Encounter for long-term (current) use of anticoagulants documented in this encounter Additional Health Concerns Infection Onset Date Last Indicated Resolved Time Other Comment:Parainfluenza 3 per RVP 01.01.2025 01/02/2025 01/02/2025 documented as of this encounter Care Teams Coal Unloader Relationship Specialty Start Date End Date Fauzia Sterling MD [address] [place] [address] PCP - General Family Medicine 09/03/18 documented as of this encounter
--- OUTSIDE RECORDS SUMMARY | 2025-07-17 09:10 | XMS_ITS | Encounter Summary ---
Author Organization [facility] ystem Address [address] [place] [address] Care Team Providers Care Universal Banker Name Role Phone Fauzia Sterling MD Primary Care Provider [phone] Encounter Details Date Type Department Care Team (Late st Contact Info) Description 07/17/2025 9:10 AM EST Lab [facility] [address] [facility] [address] [place] [address] Arrived Social History Tobacco Use Types Packs/Day Years Used Date Smoking Tobacco: Every Day Cigarettes 1.5 36 Started: 07/1989 Passive Smoke Exposure: Current Smokeless Tobacco: Never Comments:Smoking 1-1 1/2 pac k a day Alcohol Use Standard Drinks/Week Comments No 0 (1 standard drink = 0.6 oz pur e alcohol) [facility] Utilities Answer Date Recorded In the past 12 months has [employer], gas, oil, or water [employer] threatened to shut off services in [...] any time in the past 12 m [facility], were you homeless or living in [...] Description 07/28/2025 9:30 AM EST Office Visit [facility] [address] [facility] [address] [place] [address] Fauzia Sterling MD [address] [facility] [address] [place] [address] 01/01/2026 11:45 AM EDT Appointment [facility] [address] [facility] [address] [place] [phone] documented as of this encounter Goals Goal [...] about it. documented as of this encounter Visit Diagnoses Not on filedocumented in this encounter Additional Health Concerns Infection Onset Date Last Indicated Resolved Time Other Comment:Parainfluenza 3 per RVP 01.01.2025 01/02/2025 01/02/2025 documented as of this encounter Care Teams Universal Banker Relationship Specialty Start Date End Date Fauzia Sterling MD [address] [facility] [address] [place] [address] PCP - General Family Medicine 09/03/18 documented as of this encounter
[2025-07-17 15:21] VITALS: BP 130/71; PULSE 68; RESP 18; TEMP 36.6; O2SAT 95; BMI 38.4
[2025-07-17 15:25] VITALS: BP 120/71; PULSE 67; RESP 18; O2SAT 95
--- NOTE | 2025-07-17 15:42 | CA_ITS ---
FINAL REPORT TECHNIQUE: Compression matthews scale and Doppler evaluation CLINICAL HISTORY: left leg pain, denies trauma. 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 He takes Warfarin daily. He stopped his Warfarin 07/11/25 for a colonoscopy performed 07/14/25, with Warfarin resuming 07/14/25. COMPARISON: None FINDINGS: Left lower extremity femoral and popliteal veins show normal compressibility and flow. Visualized portion of the calf veins are patent by Doppler exam. IMPRESSION: No evidence of left lower extremity deep venous thrombosis Reviewed, Interpreted and Dictated by Isha Christian MD Transcribed by Reta Joe Authenticated and [facility]
--- NOTE | 2025-07-17 15:46 | HMH.EDGENADL ---
Discharge Plan Disposition Patient Disposition: Home, Self-Care Prescriptions Prescriptions: No Action buspirone 5 MG tablet 5 mg PO BID omeprazole 40 capsule,delayed release(DR/EC) 40 mg PO DAILY warfarin [Coumadin] 10 MG tablet 10 mg PO SUMOWEFR lisinopril-hydrochlorothiazide 1 EACH tablet 1 tab PO DAILY Rx Instructions: 20/12.5mg aspirin 81 MG tablet,chewable 81 mg PO DAILY carvedilol 25 mg tablet 25 mg PO DAILY Patient Comments: TAKE 1 TABLET BY MOUTH TWICE DAILY WITH MEALS atorvastatin 20 mg tablet 20 mg PO DAILY cetirizine 10 mg tablet 10 mg PO DAILY potassium chloride 20 mEq tablet,ER particles/crystals 20 meq PO DAILY albuterol sulfate [Ventolin HFA] 90 mcg/actuation HFA aerosol inhaler 2 puff INHALATION Q4HP PRN (Reason: Shortness Of Breath) escitalopram oxalate 20 mg tablet 20 mg PO DAILY amlodipine 10 mg tablet 10 mg PO DAILY warfarin 5 mg tablet 5 mg PO TUTHSA buprenorphine-naloxone 8-2 mg tablet, sublingual 1 tab SUBLINGUAL DAILY Referrals Follow up/Referrals: Fauzia Sterling MD [Primary Care Provider, Medical] - See instructions Activity Restrictions/Add. Instructions Additional Instructions/Restrictions: No evidence of a DVT today you are still subtherapeutic with your INR being 1.2 please continue your Lovenox as a bridge until your INR is therapeutic and continue to follow-up with your Coumadin clinic. Clinical Impressions Clinical Impression: History of DVT (deep vein thrombosis), Subtherapeutic international normalized ratio (INR), Left leg pain Print Language Print Language: Finnish Discharge ED Provider: Eula Hurtado General Adult [facility] General Chief complaint: PAIN Stated complaint: Left leg pain from blood clots Time Seen by Provider: 07/17/25 15:31 Mode of Arrival: Ambulatory Source of Information: Patient Description of Symptoms (Recalled from ER Triage Doc. by RN): States that he normally takes coumadin on the daily basis related to DVT in his legs in the past. States he had to hold his Coumadin from Sunday until Sunday related to having a colonoscopy done. States that however he has been taking Lovenox injections during this time. States the Lovenox injections were done Sunday until and was taking both the Coumadin and Lovenox at the same time from Sunday until yesterday. States he had his PT/INR checked and they told him he was still sub therapeutic and needed to have his leg and labs rechecked. History of Present Illness HPI narrative: Patient is a 59-year-old male present to the emergency department left lower extremity pain and history of DVT and being subtherapeutic on his INR. States that he was diagnosed with DVTs and PEs many years ago most recently 15 years ago seem to have been provoked by immobilization as well as injuries. However he is on lifelong anticoagulation. No one has discussed with him any of the new/direct or novel anticoagulants. Patient states that he stopped his Coumadin on Sunday as he was supposed to have a colonoscopy on Sunday this did not happen because he could not complete the bowel prep. On Sunday he restarted his Coumadin but also was bridged with Lovenox which he has been taking since that time. He is on her was 1.2 today at a lab in [facility] [place] and he presents today with left lower extremity discomfort. He is concerned he may have developed a DVT. Related Data Home Medications ?Medication ?Instructions ?Recorded ?Confirmed warfarin 10 mg tablet (Coumadin) 10 mg PO SUMOWEFR 09/17/17 11/17/24 aspirin 81 mg chewable tablet 81 mg PO DAILY heart 04/12/18 11/16/24 lisinopril 20 1 tab PO DAILY 04/12/18 11/16/24 mg-hydrochlorothiazide 12.5 mg tablet Held on 11/17/24. Instructions: Resume on 12/01/24. Please hold this medication until you follow-up with your PCP. buspirone 5 mg tablet 5 mg PO BID Anxiety 09/28/18 11/17/24 omeprazole 40 mg capsule,delayed 40 mg PO DAILY 09/28/18 11/16/24 release albuterol sulfate 90 mcg/actuation 2 puff inhalation Q4HP PRN 11/16/24 11/17/24 aerosol inhaler (Ventolin HFA) Shortness Of Breath atorvastatin 20 mg tablet 20 mg PO DAILY 11/16/24 11/16/24 carvedilol 25 mg tablet 25 mg PO DAILY 11/16/24 11/16/24 cetirizine 10 mg tablet 10 mg PO DAILY 11/16/24 11/16/24 escitalopram oxalate 20 mg tablet 20 mg PO DAILY 11/16/24 11/16/24 potassium chloride 20 mEq 20 meq PO DAILY 11/16/24 11/16/24 tablet,extended release(part/cryst) amlodipine 10 mg tablet 10 mg PO DAILY 11/17/24 11/17/24 buprenorphine 8 mg-naloxone 2 mg 1 tab sublingual DAILY 11/17/24 11/17/24 sublingual tablet warfarin 5 mg tablet 5 mg PO TUTHSA 11/17/24 11/17/24 Allergies Allergy/AdvReac Type Severity Reaction Status Date / Time cefdinir Allergy Cramping Verified 11/16/24 18:58 of the Muscles Penicillins Allergy Other Verified 11/16/24 18:58 [facility] Disclaimer: The information contained in this section may have been updated after the patient was seen, as this information can be updated by other users. Medical History (Updated 07/17/25 @ 15:43 by Eula Hurtado MD) Chest pain Sweating Patient left without being seen Arrhythmia Left thigh pain Left thigh pain Headache Hypokalemia Palpitation Atypical chest pain Leg pain, left Chest pain Benign paroxysmal positional vertigo Hypertension Deep vein thrombosis (DVT) Surgical History H/O foot surgery Family History Other Family history of cancer Social History Smoking Status: Current every day smoker tobacco type: cigarettes packs per day: 2 second hand exposure: Yes alcohol intake: never current occupational status: employed Travel in the last 8 weeks?: None housing: house caffeine: Yes Have you lived/traveled outside US in past 30 days?: No Contact w/someone who lives/traveled outside US past 30 days?: No Exposure to someone with infectious disease in past 14 days?: No Do you have a fever (greater than 100.4 F or 38 C)?: No Have you tested positive for COVID-19?: No Exposed to someone with COVID-19 in past 14 days?: No Do you have a sore throat?: No Do you have a cough?: No Do you have any weakness?: No Do you have any diarrhea?: No Are you experiencing any unusual bleeding?: No Do you have any muscle aches/pain?: No Do you have any abdominal pain?: No Are you experiencing loss of taste or smell?: No Other Medical History Have you received the Flu Vaccine for this season: No Have you received the Pneumonia Vaccine: No ROS Obtained: Yes All systems reviewed & no additional complaints except as documented Physical Exam General General appearance: alert and in no apparent distress Respiratory Respiratory exam: Present normal lung sounds bilaterally Cardiovascular Cardiovascular exam: Present regular rate Extremities Exam Extremities exam: Present other (No evidence of any significant swelling or phlegmasia cerulea dolens extremities symmetric) Neurological Exam Neurological exam: Present alert and oriented X3 Medical Decision Making Medical Records Screening: Per USPSTF and CDC recommendations, given the prevalence of disease in our region, it is our hospital?s policy to screen for HIV and viral Hepatitis for all patients aged 18 and over and those with ongoing risk factors. Mack Inquiry Pt receiving controlled substance: No Vital Signs: 07/17/25 15:21 07/17/25 15:25 Temperature 97.9 F Temperature Source Oral Pulse Rate 67 Pulse Rate [Radial] 68 Respiratory Rate 18 18 Blood Pressure 120/71 Blood Pressure [Right Arm] 130/71 Blood Pressure Mean [Right Arm] 90 Blood Pressure Source Automatic Cuff Blood Pressure Source [Right Arm] Automatic Cuff Blood Pressure Position Sitting Blood Pressure Position [Right Arm] Sitting 02 Sat by Pulse Oximetry 95 95 Oxygen Delivery Method Room Air Room Air Lab Data Lab results reviewed: Yes I reviewed the patient's lab results. Lab Results 07/17/25 15:33: WBC 6.6, RBC 4.27 L, Hgb 13.0 L, Hct 37.3 L, MCV 87.4, MCH 30.4, MCHC 34.9, RDW 12.5, Plt Count 194, MPV 9.0, Neut % (Auto) 59.3, Lymph % (Auto) 25.9, [place] % (Auto) 9.4 H, Eos % (Auto) 3.7, Baso % (Auto) 1.1, Neut # (Auto) 3.9, Lymph # (Auto) 1.7, [place] # (Auto) 0.6, Eos # (Auto) 0.2, Baso # (Auto) 0.1, PT 13.2 H, INR 1.21 H, D-Dimer 0.49, Sodium 136, Potassium 4.4, Chloride 103, Carbon Dioxide 31 H, Anion Gap 6.4, BUN 17, Creatinine 1.10, Estimated Creat Clear 119, Estimated GFR 68, Est GFR ( Amer) 83, Glucose 111 H, Calcium 9.3, Total Bilirubin 0.4, AST 32, ALT 24, Alkaline Phosphatase 97, Total Protein 6.6, Albumin 3.9, Globulin 2.7, Albumin/Globulin Ratio 1.4, HCV Ab KRISTIN w/Rflx PCR Qn Negative, HIV Ag/Ab Combo Qual Negative 07/17/25 15:33 07/17/25 15:33 Orders (Tests/Meds): ORDERS Category Date Time Status CBC w/Auto Diff [Complete Blood Count Auto Diff] Stat Lab 07/17/25 15:33 Completed CMP [Comprehensive Metabolic Panel] Stat Lab 07/17/25 15:33 Completed D-Dimer Stat Lab 07/17/25 15:33 Completed HIV Combo Stat Lab 07/17/25 15:33 Completed Hepatitis C Ab Qual. W/ RFX Stat Lab 07/17/25 15:33 Completed PT INR [Prothrombin Time INR] Stat Lab 07/17/25 15:33 Completed CA venous doppler LE LT Stat Y 07/17/25 15:42 Completed Medical Decision Narrative: 59-year-old with above history and physical. Seems as though he is on lifelong anticoagulation I strongly encouraged him to have a discussion with his physicians regarding the novel anticoagulants. It seems as though he has been bridging his subtherapeutic INR with Lovenox and he still has some at home. However given the fact that he got concerned and has some left lower extremity discomfort he came to the emergency department. Whether not he has the development of a blood clot which is unlikely at this point management will likely not changes he has Lovenox at home right now. He also does not want to transition to a novel anticoagulant. Therefore with or without a DVT at the moment I will advised him to continue on with his Lovenox at home. I will make sure that he is on therapeutic dosing. Ultrasound D-dimer INR labs pending and will reassess. Patient has no signs or symptoms right elbow pulmonary embolism. Reassessment 5:19 PM ultrasound returned which shows no evidence of DVT labs otherwise unremarkable aside from subtherapeutic INR which remains at 1.21. He states he has plenty of Lovenox at home is taking 120 twice daily still has plenty is followed by his Coumadin clinic with Josue we will continue to take his Lovenox until he is therapeutic we will also have conversations with his team regarding transitioning to one of the newer anticoagulants. Critical Care Critical Care Time Critical Care Time: No
[2025-07-17 15:47] LABS: Hematocrit 37.3 % (42.0-52.0); Hemoglobin 13.0 g/dL (14.1-18.0); Immature Granulocytes % 0.6 %; Mean Corpuscular HGB Conc 34.9 g/dL (31.8-35.4); Mean Corpuscular Hemoglobin 30.4 pg (27.0-31.2); Mean Corpuscular Volume 87.4 fl (80-94); Nucleated Red Blood Cells % 0 %; Platelet Count 194 K/mm3 (142-424); Red Blood Count 4.27 M/mm3 (4.60-6.20); Red Cell Distribution Width-SD 39.8 fL; White Blood Count 6.6 K/mm3 (4.8-10.8)
[2025-07-17 15:52] LABS: Albumin Level 3.9 g/dl (3.5-5.0); Chloride 103 mmol/L (98-107); Potassium 4.4 mmoL/L (3.5-5.1); Sodium 136 mmol/L (136-145)
[2025-07-17 15:54] LABS: Blood Urea Nitrogen 17 mg/dl (9-20); Creatinine Clearance Estimated 119 mL/min (50-200); Creatinine,Serum 1.10 mg/dl (0.66-1.25); Estimated Glomerular Filt Rate 68 ml/min (>60); GFR (African American) 83 ML/MIN (>60); INR 1.21 (0.9-1.1); Prothrombin Time 13.2 seconds (10.1-12.5)
[2025-07-17 15:55] LABS: Alanine Aminotransferase 24 U/L (12-78); Albumin/Globulin Ratio 1.4 (1.1-1.8); Alkaline Phosphatase 97 U/L (38-126); Anion Gap 6.4 mEq/L (5-15); Aspartate Amino Transferase 32 U/L (17-59); Bilirubin,Total 0.4 mg/dl (0.2-1.3); Calcium 9.3 mg/dl (8.4-10.2); Carbon Dioxide 31 mmol/L (22.0-30.0); Globulin 2.7 g/dL (1.3-3.2); Glucose 111 mg/dl (74-100); Total Protein,Serum 6.6 g/dl (6.3-8.2)
--- OUTSIDE RECORDS SUMMARY | 2025-07-17 16:00 | XMS_ITS | Encounter Summary ---
[facility] Address [address] [place] [address] Care Team Providers Care Electronic Scanner Operator Name Role Phone Fauzia Sterling MD Primary Care Provider [phone] Encounter Details Date Type Department Care Team (Late st Contact Info) Description 06/23/2025 Telephone [facility] [address] [facility] [address] [place] [address] [facility] [address] [id number] Social History Tobacco Use Types Packs/Day Years Used Date Smoking Tobacco: Every Day Cigarettes 1.5 36 Started: 07/1989 Passive Smoke Exposure: Current Smokeless Tobacco: Never Comments:Smoking 1-1 1/2 pac k a day Alcohol Use Standard Drinks/Week Comments No 0 (1 standard drink = 0.6 oz pur e alcohol) [facility] Utilities Answer Date Recorded In the past 12 months has [employer], gas, oil, or water [employer] threatened to shut off services in your [...] time in the past 12 m [facility], were you homeless or living in [...] encounter Miscellaneous Notes * Telephone Encounter - Christelle Mujica PharmD - 07/08/2025 10:51 AM EST LVM to go over plan for upcoming procedure. Will send [employer] message as well. Enoxaparin sent 07/02/25 to pharmacy Christelle Mujica PharmD 07/08/2025 10:52 EST * Telephone Encounter - Sandra Naidu RPH - 06/24/2025 11:52 AM EST Plan approved. Will plan to discuss with patient on 06/30 (next scheduled INR check). * Telephone Encounter - Fauzia Sterling MD - 06/24/2025 9:06 AM EST Sounds like a reasonable plan. * Telephone Encounter - Sandra Naidu RPH - 06/23/2025 3:[address] Sterling, We were recently informed that Jesus Perales is undergoing a colonoscopy on 07/[address] [place] [facility]. Jones requested that the patient hold warfarin for 3-5 days prior to procedure.. 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 Weight: 115 kg / Scr 0.87 mg/dL CrCl: 113 mL/min (from December 2024 labs) 07/11: Hold warfarin for 3 days 07/12: Hold warfarin, enoxaparin 120 mg subcut PM only 07/13: Hold warfarin, enoxaparin 120 mg subcut AM only 07/14: procedure, warfarin 10 mg (boosted dose) in the evening after procedure if okay with surgeon 07/15: Resume warfarin maintenance regimen of 10 mg and enoxaparin 120 mg subcut q12h 07/16: Resume warfarin maintenance regimen of 5 mg and enoxaparin 120 mg subcut q12h 07/17: INR recheck (due to holiday) Please advise if you are agreeable to plan above or if you prefer an alternative approach to Viraj Perales anticoagulation plan for the upcoming procedure. Sandra Naidu RPH 06/23/2025 16:08 EST [facility] phone fax documented in this encounter Plan of Treatment Upcoming Encounters Date Type Department Care Team (Late st Contact Info) Description 07/28/2025 9:30 AM EST Office Visit [facility] [address] [phone] Fauzia Sterling MD [address] [address] 01/01/2026 11:45 AM EDT Appointment [facility] [address] [phone] documented as of this encounter Goals Goal Patient Goal Type Associated Problems Recent Progress Patient-Stated? Author Track and Manage My Blood Pressure Patient Goals On track( 025 10:45 AM EST) Claudia Ward, RN Note: [...] documented as of this encounter Care Teams Electronic Scanner Operator Relationship Specialty [place] [address] [place] [phone] PCP - General Family Medicine 09/03/18 documented as of this encounter
--- OUTSIDE RECORDS SUMMARY | 2025-07-17 16:00 | XMS_ITS | Encounter Summary ---
[facility] [address] [place] [address] Care Team Providers Care Supervisor Propellant Charge Loading Name Role Phone Fauzia Sterling MD Primary Care Provider Reason for Visit * Reason Comments Med Refill Encounter Details Date Type Department Care Team (Late st Contact Info) Description 06/17/2025 Refill [facility] [address] [phone] Fauzia Sterling MD [address] [address] Essential hypertension Social History Tobacco Use Types Packs/Day Years Used Date Smoking Tobacco: Every Day Cigarettes 1.5 36 Started: 07/1989 Passive Smoke Exposure: Current Smokeless Tobacco: Never Comments:Smoking 1-1 1/2 pac k a day Alcohol Use Standard Drinks/Week Comments No 0 (1 standard drink = 0.6 oz pur e alcohol) [facility] Utilities Answer Date Recorded In the past 12 months has [employer] gas, oil, or water [employer] threatened to shut off services in your [...] any time in the past 12 m [facility], were you homeless or living in [...] Description 07/28/2025 9:30 AM EST Office Visit [facility] [address] [facility] [address] [place] [phone] Fauzia Sterling MD [address] [facility] [address] [place] [address] 01/01/2026 11:45 AM EDT Appointment [facility] [address] [facility] [address] [place] [address] documented as of this encounter Goals Goal Patient Goal Type Associated Problems Recent Progress Patient-Stated? Author Track and Manage My Blood Pressure Patient Goals On track( 025 10:45 AM EST) No Claudia Reno RN [...] documented as of this encounter Care Teams Supervisor Propellant Charge Loading Relationship Specialty Start Date End Date Fauzia Sterling MD [address] [place] [address] PCP - General Family Medicine 09/03/18 documented as of this encounter
--- OUTSIDE RECORDS SUMMARY | 2025-07-17 16:00 | XMS_ITS | Encounter Summary ---
[facility] [address] [place] [address] Care Team Providers Care Cattle Farmer Name Role Phone Fauzia Sterling MD Primary Care Provider [phone] Reason for Visit * Reason Comments Med Refill Encounter Details Date Type Department Care Team (Late st Contact Info) Description 06/14/2025 Refill [facility] [address] [phone] Alison Grider MD [address] [address] Social History Tobacco Use Types Packs/Day Years Used Date Smoking Tobacco: Every Day Cigarettes 1.5 36 Started: 07/1989 Passive Smoke Exposure: Current Smokeless Tobacco: Never Comments:Smoking 1-1 1/2 pac k a day Alcohol Use Standard Drinks/Week Comments No 0 (1 standard drink = 0.6 oz pur e alcohol) [facility] Utilities Answer Date Recorded In the past 12 months has [employer], gas, oil, or water company threatened to [...] any time in the past 12 m [facility], were you homeless or [...] Description 07/28/2025 9:30 AM EST Office Visit [facility] [address] [facility] [address] [place] [phone] Fauzia Sterling MD [address] [facility] [address] [place] [address] 01/01/2026 11:45 AM EDT Appointment [facility] [address] [facility] [address] [place] [address] documented as of this encounter Goals Goal Patient Goal Type Associated Problems Recent Progress Patient-Stated? Author Track and Manage My Blood Pressure Patient Goals On track( 025 10:45 AM EST) No Claudia Reno, JAYCEE [...] documented as of this encounter Care Teams Cattle Farmer Relationship Specialty [place] [address] [place] [address] PCP - General Family Medicine 09/03/18 documented as of this encounter
--- OUTSIDE RECORDS SUMMARY | 2025-07-17 16:00 | XMS_ITS | Encounter Summary ---
Author Organization [facility] Address [address] [place] [address] Care Team Providers Care Asphalt Mixing Machine Operator Name Role Phone Fauzia Sterling MD Primary Care Provider [phone] Encounter Details Date Type Department Care Team (Late st Contact Info) Description 06/15/2025 Telephone [facility] [address] [facility] [address] [place] [address] Angelica Valenzuela, Tester Rocket Engine Social History Tobacco Use Types Packs/Day Years Used Date Smoking Tobacco: Every Day Cigarettes 1.5 36 Started: 07/1989 Passive Smoke Exposure: Current Smokeless Tobacco: Never Comments:Smoking 1-1 1/2 pac k a day Alcohol Use Standard Drinks/Week Comments No 0 (1 standard drink = 0.6 oz pur e alcohol) [facility] Utilities Answer Date Recorded In the past 12 months has [employer], gas, oil, or water [employer] threatened to shut off services in your [...] any time in the past 12 m [facility], were you homeless or living [...] encounter Miscellaneous Notes * Telephone Encounter - Angelica Valenzuela, Tester Rocket Engine - 06/15/2025 11:09 AM EST The clinic was contacted regarding an upcoming surgery/procedure for Jesus Perales 1965. Thefollowing information was obtained: Name of person calling: Relationship to patient: Date of surgery or procedure: 07/14 Type of surgery being performed: Colonoscopy If dental extraction, how many teeth?: N/A Operating provider name: Anderson Jones MD Operating provider contact information: [facility] Gastroenterology (P) [phone] Requested warfarin hold time: 3-5 days Requested warfarin restart date (e.g. POD0, POD1)?: None given If LMWH is administered, when would the provider like the last dose to be given? (e.g. 12-24 hours prior to procedure?): None given If LMWH is administered, when would the provider like to restart LMWH injections: None given Note: Fauzia Sterling confirmed with Gastroenterology that patient is okay to hold 3-5 days. Angelica Valenzuela CPhT, [facility] 11:20 EST 06/15/2025 documented in this encounter Plan of Treatment Upcoming Encounters Date Type Department Care Team (Late st Contact Info) Description 07/28/2025 9:30 AM EST Office Visit [facility] 10[address] [facility] 100 [place] [address] Fauzia Sterling MD [address] [facility] 100 [place] [address] 01/01/2026 11:45 AM EDT Appointment [facility] 3000 [facility] 120 [place] [address] documented as of this encounter Goals Goal Patient Goal Type Associated Problems Recent Progress Patient-Stated? Author Track and Manage My Blood Pressure Patient Goals On track( 025 10:45 AM EST) Claudia Ward RN Note: [...] documented as of this encounter Care Teams Asphalt Mixing Machine Operator Relationship Specialty Start Date End Date Fauzia Sterling MD [address] [place] [address] PCP - General Family Medicine 09/03/18 documented as of this encounter
--- OUTSIDE RECORDS SUMMARY | 2025-07-17 16:00 | XMS_ITS | Encounter Summary ---
[facility] Address [address] [place] [address] Care Team Providers Care Application Development Project Manager Name Role Phone Fauzia Sterling MD Primary Care Provider [phone] Encounter Details Date Type Department Care Team (Late st Contact Info) Description 04/11/2025 Results Follow-Up [facility] [address] [address] Fauzia Sterling MD [address] [address] Social History Tobacco Use Types Packs/Day Years Used Date Smoking Tobacco: Every Day Cigarettes 1.5 36 Started: 07/1989 Passive Smoke Exposure: Current Smokeless Tobacco: Never Comments:Smoking 1-1 1/2 pac k a day Alcohol Use Standard Drinks/Week Comments No 0 (1 standard drink = 0.6 oz pur e alcohol) [facility] Utilities Answer Date Recorded In the past 12 months has [employer], gas, oil, or water [employer] threatened to shut off services in your [...] time in the past 12 m [facility], were you homeless or living in [...] Description 07/28/2025 9:30 AM EST Office Visit [facility] [address] [facility] 100 [place] [address] Fauzia Sterling MD [address] [facility] 100 [place] [address] 01/01/2026 11:45 AM EDT Appointment [facility] 3000 [facility] [address] [place] [address] documented as of this encounter [...] documented as of this encounter Care Teams Application Development Project Manager Relationship Specialty Start Date End Date Fauzia Sterling MD [address] [address] PCP - General Family Medicine 09/03/18 documented as of this encounter
[2025-07-17 16:01] LABS: D-Dimer 0.49 ug/mL (0.0-0.5)
--- OUTSIDE RECORDS SUMMARY | 2025-07-17 16:01 | XMS_ITS | Encounter Summary ---
[facility] Address [address] [place] [address] Care Team Providers Care Senior Policy Advisor Name Role Phone Fauzia Sterling MD Primary Care Provider [phone] Encounter Details Date Type Department Care Team (Latest Contact Info) Description 07/17/2025 Travel Social History Tobacco Use Types Packs/Day [...] 07/28/2025 9:30 AM EST Office Visit [facility] 10[address] [facility] 100 [place] [address] Fauzia Sterling MD [address] [facility] 100 [place] [address] 01/01/2026 11:45 AM EDT Appointment [facility] 3000 [facility] [address] [place] [address] documented as of this encounter Goals Goal [...] as of this encounter Care Teams Senior Policy Advisor Relationship Specialty Start Date End Date Fauzia Sterling MD [address] [facility] 100 [place] [address] PCP - General Family Medicine 09/03/18 documented as of this encounter
--- OUTSIDE RECORDS SUMMARY | 2025-07-17 16:01 | XMS_ITS | Encounter Summary ---
[facility] Organization [facility] Address [address] [place] [address] Care Team Providers Care Service Desk Director Name Role Phone Fauzia Sterling MD Primary Care Provider [phone] Encounter Details Date Type Department Care Team (Late st Contact Info) Description 07/17/2025 Anticoagulation Visit [facility]IC [address] [facility] [address] [place] [address] Angelica Valenzuela, Quotation Clerk Social History Tobacco Use Types Packs/Day Years Used Date Smoking Tobacco: Every Day Cigarettes 1.5 36 Started: 07/1989 Passive Smoke Exposure: Current Smokeless Tobacco: Never Comments:Smoking 1-1 1/2 pac k a day Alcohol Use Standard Drinks/Week Comments No 0 (1 standard drink = 0.6 oz pur e alcohol) [facility] Utilities Answer Date Recorded In the past 12 months has [employer], [employer], oil, or water [employer] threatened to shut off services in your [...] any time in the past 12 m [facility], were you homeless or living in [...] Description 07/28/2025 9:30 AM EST Office Visit [facility] [address] [facility] [place] [address] Fauzia Sterling MD [address] [facility] 100 [place] [address] 01/01/2026 11:45 AM EDT Appointment [facility] 3000 [facility] 120 [place] [phone] documented as of this encounter Goals Goal [...] documented as of this encounter Care Teams Service Desk Director Relationship Specialty Start Date End Date Fauzia Sterling MD [address] [facility] 100 [place] [address] PCP - General Family Medicine 09/03/18 documented as of this encounter
--- OUTSIDE RECORDS SUMMARY | 2025-07-17 16:01 | XMS_ITS | Encounter Summary ---
[facility] Address [address] [place] [address] Care Team Providers Care Educational Administrator Name Role Phone Fauzia Sterling MD Primary Care Provider [phone] Reason for Visit * Reason Comments Med Refill Encounter Details Date Type Department Care Team (Late st Contact Info) Description 07/06/2025 Refill [facility] CL[facility]IC [address]20 [facility] 606 [place] [address] Fauzia Sterling MD [address] [facility] 100 [place] [address] Anticoagulant long-term use Social History Tobacco Use Types Packs/Day Years Used Date Smoking Tobacco: Every Day Cigarettes 1.5 36 Started: 07/1989 Passive Smoke Exposure: Current Smokeless Tobacco: Never Comments:Smoking 1-1 1/2 pac k a day Alcohol Use Standard Drinks/Week Comments No 0 (1 standard drink = 0.6 oz pur e alcohol) [facility] Utilities Answer Date Recorded In the past 12 months has [employer], gas, oil, or water company threatened to [...] Description 07/28/2025 9:30 AM EST Office Visit [facility] [address] [facility] [address] [place] [address] Fauzia Sterling MD [address] [facility] 100 [place] [address] 01/01/2026 11:45 AM EDT Appointment [facility] 3000 [facility] [address] [place] [address] documented as of this encounter [...] documented as of this encounter Care Teams Educational Administrator Relationship Specialty Start Date End Date Fauzia Sterling MD [address] [place] [address] PCP - General Family Medicine 09/03/18 documented as of this encounter
--- OUTSIDE RECORDS SUMMARY | 2025-07-17 16:01 | XMS_ITS | Encounter Summary ---
[facility] Organization [facility] Address [address] [place] [address] Care Team Providers Care Repairer Welding Equipment Name Role Phone Fauzia Sterling MD Primary Care Provider [phone] Reason for Visit * Reason Comments Med Refill Encounter Details Date Type Department Care Team (Late st Contact Info) Description 06/08/2025 Refill [facility] CL[facility]IC [address]20 [facility] 606 [place] [address] Fauzia Sterling MD 10[address] [facility] 100 [place] [address] Anticoagulant long-term use Social History Tobacco Use Types Packs/Day Years Used Date Smoking Tobacco: Every Day Cigarettes 1.5 36 Started: 07/1989 Passive Smoke Exposure: Current Smokeless Tobacco: Never Comments:Smoking 1-1 1/2 pac k a day Alcohol Use Standard Drinks/Week Comments No 0 (1 standard drink = 0.6 oz pur e alcohol) [facility] Utilities Answer Date Recorded In the past 12 months has [employer], gas, oil, or water company threatened to [...] [facility] [address] [facility] [address] [place] [address] Fauzia Sterling MD [address] [facility] 100 [place] [address] 01/01/2026 11:45 AM EDT Appointment [facility] 3000 [facility] [address] [place] [address] documented as of this encounter [...] as of this encounter Care Teams Repairer Welding Equipment Relationship Specialty Start Date End Date Fauzia Sterling MD [address] [place] [address] PCP - General Family Medicine 09/03/18 documented as of this encounter
--- OUTSIDE RECORDS SUMMARY | 2025-07-17 16:01 | XMS_ITS | Encounter Summary ---
Author Organization [employer] ([place], [place], [place], [place], [place]) Address [address] [place] [address] Care Team Providers Care Internet Marketing Assistant Name Role Phone Unavailable Primary Care Provider Unavailabl e Encounter Details Date Type Department Care Team (Late st Contact Info) Description 11/12/2018 Transcribed Document [facility] [place] [address] ProviderJulito MD [address] [place] [id number] Social History Tobacco Use Types Packs/Day Years [...] EDT Height Source Stated Height Entry Format Catron Height/Length, SLOVENIAN (ft) 5 ft Height/Length SLOVENIAN 10 Inch CLINICALHEIGHT 177.8 cm Weed Body Weight 72.02 kg Weight Source, ED Critical estimated dosing weight Weight Entry Format Catron Weight Cymraes lb 232 lb CLINICALWEIGHT 105.45 kg Body [...] rhythm, No ST changes, no ectopy, normal MN & QRS intervals, EP Interp. steno pool supervisor: Rate 80, normal sinus rhythm. Results review: [...] chest. Heart Rhythm Regular Nail Bed Color Princess Anne Edema Comment. . Gastrointestinal Assessment WDL WDL with exceptions Gastrointestinal Symptoms Epigastric Pain Gastrointestinal Assessment Comment Pt. reports that he is having burning and discomfort in the middle of his chest since last night. Takes medication for GERD. Skin Description Dry Skin Temperature Warm Communication Barrier None EKG Completed by Dylan Quick, Emergency Room Automatic Pilot Mechanic EKG Time Completed 11/12/2018 11:25 EKG Communicated to Provider BUDDY ROSENBERG MD EKG Time Communicated to Provider 11/12/2018 11:25 Primary Language Cymraes Information Obtained From Patient Smoking Status 4 [...] Fall Scale Risk Level 0-24 Low Risk [place] Fall Interventions Adequate lighting, Assistive devices within [...] air Height Source Stated Height Entry Format Catron Height/Length, SLOVENIAN (ft) 5 ft Height/Length SLOVENIAN 10 Inch CLINICALHEIGHT 177.8 cm Weed Body Weight 72.02 kg Weight Source, ED Critical estimated dosing weight Weight Entry Format Catron Weight Cymraes lb 232 lb CLINICALWEIGHT 105.45 kg Body [...] 12:38 EDT, Discharge to: Home. Prescriptions: Prescription [facility]: Carafate 1 g oral tablet (Prescribe): [...]
--- OUTSIDE RECORDS SUMMARY | 2025-07-17 16:01 | XMS_ITS | Encounter Summary ---
[facility] Address [address] [place] [address] Care Team Providers Care Tour Bus Driver/Guide Name Role Phone Fauzia Sterling MD Primary Care Provider [phone] Encounter Details Date Type Department Care Team (Late st Contact Info) Description 07/08/2025 Telephone [facility] [address] [facility] [address] [place] [address] Angelica Valenzuela, Gse Mechanic Social History Tobacco Use Types Packs/Day Years Used Date Smoking Tobacco: Every Day Cigarettes 1.5 36 Started: 07/1989 Passive Smoke Exposure: Current Smokeless Tobacco: Never Comments:Smoking 1-1 1/2 pac k a day Alcohol Use Standard Drinks/Week Comments No 0 (1 standard drink = 0.6 oz pur e alcohol) [facility] Utilities Answer Date Recorded In the past 12 months has [employer], gas, oil, or water [facility] threatened to shut off services in your [...] Notes * Telephone Encounter - Angelica Valenzuela, Gse Mechanic - 07/08/2025 11:56 AM EST Patient called back regarding bridge plan for upcoming procedure. Counseled patient on bridge plan,patient expressed understanding and has no further questions at this time. Angelica Valenzuela CPhT, RPhT 11:57 EST 07/08/2025 documented in this encounter Plan of Treatment Upcoming Encounters Date Type Department Care Team (Late st Contact Info) Description 07/28/2025 9:30 AM EST Office Visit [facility] MEDIC[facility] [address] [phone] Fauzia Sterling MD 1099 [facility] 100 [place] [address] 01/01/2026 11:45 AM EDT Appointment [facility] 3000 [facility] 120 [place] [address] documented as of this encounter Goals Goal [...] documented as of this encounter Care Teams Tour Bus Driver/Guide Relationship Specialty Start Date End Date Fauzia Sterling MD [address] [place] [address] PCP - General Family Medicine 09/03/18 documented as of this encounter
--- OUTSIDE RECORDS SUMMARY | 2025-07-17 16:01 | XMS_ITS | Encounter Summary ---
Author Organization [employer] ([place], [place], [place], [place]) Address [address] [place] [address] Care Team Providers Care Permit Specialist Name Role Phone Unavailable Primary Care Provider Unavailabl e Encounter Details Date Type Department Care Team (Late st Contact Info) Description 11/12/2018 Transcribed Document [facility] [place] [facility] [place] [address] ProviderJulito MD [address] [place] [address] Social History Tobacco Use Types Packs/Day [...] Martin MD - 11/12/2018 12:56 PM CDT [facility] [address] [place] [address] ODETTE ROBERTSON :1965 Visit Time:11/12/2018 Your Visit Summary Your Care Team Admitting Physician - BUDDY ROSENBERG MD-HIWOT Attending Physician - BUDDY ROSENBERG MD-HIWOT Primary Care Physician - DOMINGA WHYTE (REF)DAHIANA Referring Physician - BUDDY ROSENBERG MD-HIWOT Your Diagnosis Chest pain Chest pain Patient Portal Reminder: Be sure to sign up for the Close.io patient portal, which gives you 12/02 access to your medical information ??? including these discharge instructions ??? using your computer, smartphone, or tablet. Just go to [employer] to get started. Questions? Call . You [...] When Within 2 to 3 days Where: [place] [address] [place] [address]- Business (1) Allergies penicillin Immunizations This Visit [...] you start to feel better. ??? Take dcuo-tps-eybfkoc and prescription medicines only as told by [...] 04/18/2006 Document Revised: 04/02/2017 Document Reviewed: 04/02/2017 [employer] Interactive Patient Education ?? 2017 [employer]. Emergency Awareness and Preventative Care STROKE is [...] Assistance with quitting is available by contacting 9-130-RFRN-NOW. This is a free resource providing counseling, support, and referral. Or you may contact your personal physician. [employer] Suicide Prevention Lifeline: The National Suicide Prevention [...] was given the opportunity to ask questions. Patient/Vision Specialist Name: Patient/Vision Specialist Signature: Relationship to Patient: Clinician/Hospital Vision Specialist Signature: Please Provide a Telephone Number Where You Can Be Reached: Is it Permissible To Leave a Message? Date: documented in this encounter Plan of Treatment Not on file documented as of this encounter Visit Diagnoses Not on filedocumented in this encounter
--- OUTSIDE RECORDS SUMMARY | 2025-07-17 16:01 | XMS_ITS | Encounter Summary ---
Author Organization [facility] Address [address] [place] [address] Care Team Providers Care Provider Enrollment Specialist Name Role Phone Fauzia Sterling MD Primary Care Provider [phone] Encounter Details Date Type Department Care Team (Late st Contact Info) Description 07/07/2025 Telephone [facility] GASTRO[facility]OLOGY [address] [address] Anderson Jones MD 1720 [facility] [address] [place] [address] Social History Tobacco Use Types Packs/Day Years Used Date Smoking Tobacco: Every Day Cigarettes 1.5 36 Started: 07/1989 Passive Smoke Exposure: Current Smokeless Tobacco: Never Comments:Smoking 1-1 1/2 pac k a day Alcohol Use Standard Drinks/Week Comments No 0 (1 standard drink = 0.6 oz pur e alcohol) [facility] Utilities Answer Date Recorded In the past 12 months has [employer], gas, oil, or water [employer] threatened to shut off services in your [...] time in the past 12 m [facility], were you homeless or living in a [...] encounter Miscellaneous Notes * Telephone Encounter - Harriett Fonseca MA - 07/07/2025 1:10 PM EST PT CALLED LVM ON NURSE LINE ON DIRECTIONS HOW TO TAKE PREP. CALLED PT BACK UNABLE TO REACH LVM TO CALL BACK OFFICE. documented in this encounter Plan of Treatment Upcoming Encounters Date Type Department Care Team (Late st Contact Info) Description 07/28/2025 9:30 AM EST Office Visit [facility] 1099 [facility] 100 [place] [phone] Fauzia Sterling MD 1099 [facility] 100 [place] [address] 01/01/2026 11:45 AM EDT Appointment [facility] 3000 [facility] 120 [place] [address] documented as of this encounter Goals Goal [...] documented as of this encounter Care Teams Provider Enrollment Specialist Relationship Specialty Start Date End Date Fauzia Sterling MD [address] [place] [address] PCP - General Family Medicine 09/03/18 documented as of this encounter
--- OUTSIDE RECORDS SUMMARY | 2025-07-17 16:01 | XMS_ITS | Encounter Summary ---
[facility] Organization [facility] Address [address] [place] [address] Care Team Providers Care Eviction Specialist Name Role Phone Fauzia Sterling MD Primary Care Provider [phone] Reason for Visit * Reason Comments Med Refill Encounter Details Date Type Department Care Team (Late st Contact Info) Description 09/25/2023 Refill [facility] CLINIC 1720 [facility] 606 [place] [address] Fauzia Sterling MD 1099 [facility] 100 [place] [address] Anticoagulant long-term use Social History [...] Description 07/28/2025 9:30 AM EST Office Visit [facility] [address] [phone] Fauzia Sterling MD 1099 [facility] 100 [place] [address] 01/01/2026 11:45 AM EDT Appointment [facility] 3000 [facility] [address] [place] [address] documented as of this encounter Visit Diagnoses Diagnosis Anticoagulant long-term use Encounter for long-term (current) use of anticoagulants documented in this encounter Additional Health Concerns Infection Onset Date Last Indicated Resolved Time COVID (rule out) 12/30/2024 12/30/2024 12/30/2024 9:12 AM EDT Other Comment:Parainfluenza 3 per RVP 01.01.2025 01/02/2025 01/02/2025 documented as of this encounter Care Teams Eviction Specialist Relationship Specialty [place] [address] [place] [address] PCP - General Family Medicine 09/03/18 documented as of this encounter
--- OUTSIDE RECORDS SUMMARY | 2025-07-17 16:01 | XMS_ITS | Clinical Summary ---
Author Organization [facility] Address [address] [place] [address] Care Team Providers Care Data Analytics Developer Name Role Phone Fauzia Sterling MD Primary Care Provider [phone] Allergies Active Allergy Reactions Criticality Noted Date [...] 2014 [facility]-Zoster Vaccines (1 of 2) 2014 [id number] Vaccine (2 - 2025-26 season) 2025 03/10/2021 [facility]-Influenza Vaccine (#1) 03/23/202505/26, 04/28/2019, 05/15/2018, Additional history exists [facility]-RSV Vaccine: 60+ Years or (1 - 1-dose 75+ series) 12/25/2039 [facility]-Diabetes: Hemoglobin A1C Discontinued 11/07/2021, 07/27/2020, 02/12/2020, Additional history exists HPV Vaccines (No Doses Required) Completed [facility]-HIB Vaccines Aged Out No longer e [...] complete this topic Insurance MEDICAID Care Teams Data Analytics Developer Relationship Specialty Start Date End Date Fauzia Sterling MD [place] [address] PCP - General 12/03/20
--- OUTSIDE RECORDS SUMMARY | 2025-07-17 16:01 | XMS_ITS | Encounter Summary ---
Author Organization [facility] Address [address] [place] [address] Care Team Providers Care Marriage And Family Counselor Name Role Phone Fauzia Sterling MD Primary Care Provider Reason for Visit * Reason Comments Med Refill Encounter Details Date Type Department Care Team (Late st Contact Info) Description 07/11/2025 Refill [facility] FAMILY MEDICINE [address] [phone] Alison Grider MD [address] [address] Social History Tobacco Use Types Packs/Day Years Used Date Smoking Tobacco: Every Day Cigarettes 1.5 36 Started: 07/1989 Passive Smoke Exposure: Current Smokeless Tobacco: Never Comments:Smoking 1-1 1/2 pac k a day Alcohol Use Standard Drinks/Week Comments No 0 (1 standard drink = 0.6 oz pur e alcohol) [facility] Utilities Answer Date Recorded In the past 12 months has [employer], gas, oil, or water company threatened to [...] in the past [address] [facility], were you homeless or living [...] Description 07/28/2025 9:30 AM EST Office Visit [facility] [address] [facility] 100 [place] [phone] Fauzia Sterling MD [address] [facility] 100 [place] [address] 01/01/2026 11:45 AM EDT Appointment [facility] 3000 [facility] [address] [place] [address] documented as of this encounter [...] documented as of this encounter Care Teams Marriage And Family Counselor Relationship Specialty [place] [address] [place] [address] PCP - General Family Medicine 09/03/18 documented as of this encounter
--- OUTSIDE RECORDS SUMMARY | 2025-07-17 16:01 | XMS_ITS | Encounter Summary ---
Author Organization [facility] Address [address] [place] [address] Care Team Providers Care Caseworker Protective Services Name Role Phone Fauzia Sterling MD Primary Care Provider Encounter Details Date Type Department Care Team (Late st Contact Info) Description 05/07/2025 Results Follow-Up [facility] PULMON[facility] & CRITICAL CARE MEDICINE 24[address] [place] [address] Rae Truong, ACCESSIONER [address] [place] [address] Social History Tobacco Use Types Packs/Day Years Used Date Smoking Tobacco: Every Day Cigarettes 1.5 36 Started: 07/1989 Passive Smoke Exposure: Current Smokeless Tobacco: Never Comments:Smoking 1-1 1/2 pac k a day Alcohol Use Standard Drinks/Week Comments No 0 (1 standard drink = 0.6 oz pur e alcohol) [facility] Utilities Answer Date Recorded In the past 12 months has [employer], gas, oil, or water [employer] threatened to shut off services in your [...] any time in the past 12 m [facility], were you homeless or living in a longterm (including now)? No 11/18/2024 Abuse Screen Answer [...] Description 07/28/2025 9:30 AM EST Office Visit [facility] [address] [facility] 100 [place] [phone] Fauzia Sterling MD [address] [facility] 100 [place], [place] [id number] 01/01/2026 11:45 AM EDT Appointment [facility] 3000 [facility] [address] [place] [address] documented as of this encounter [...] documented as of this encounter Care Teams Caseworker Protective Services Relationship Specialty Start Date End Date Fauzia Sterling MD 1099 [place] [address] PCP - General Family Medicine 09/03/18 documented as of this encounter
--- OUTSIDE RECORDS SUMMARY | 2025-07-17 16:01 | XMS_ITS | Encounter Summary ---
Author Organization [facility] Address [address] [place] [address] Care Team Providers Care Loaf Counter Name Role Phone Fauzia Sterling MD Primary Care Provider [phone] Encounter Details Date Type Department Care Team (Late st Contact Info) Description 01/06/2025 Results Follow-Up [facility] FAMILY MEDIC[facility] [address] [address] Fauzia Sterling MD [address] [address] Social History Tobacco Use Types Packs/Day Years Used Date Smoking Tobacco: Every Day Cigarettes 1 35 Passive Smoke Exposure: Current Smokeless Tobacco: Never Comments:Smoking 1-1 1/2 pac k a day Alcohol Use Standard Drinks/Week Comments No 0 (1 standard drink = 0.6 oz pur e alcohol) [facility] Utilities Answer Date Recorded In the past 12 months has [employer], [employer], oil, or water [employer] threatened to shut off services in your [...] Description 07/28/2025 9:30 AM EST Office Visit [facility] [address] [phone] Fauzia Sterling MD 1099 [facility] 100 [place] [address] 01/01/2026 11:45 AM EDT Appointment [facility] 3000 [facility] 120 [place] [address] documented as of this encounter [...] documented as of this encounter Care Teams Loaf Counter Relationship Specialty Start Date End Date Fauzia Sterling MD [address] [place] [address] PCP - General Family Medicine 09/03/18 documented as of this encounter
--- OUTSIDE RECORDS SUMMARY | 2025-07-17 16:01 | XMS_ITS | Encounter Summary ---
Author Organization [facility] Address [address] [place] [address] Care Team Providers Care Core Dropper Name Role Phone Fauzia Sterling MD Primary Care Provider [phone] Encounter Details Date Type Department Care Team (Late st Contact Info) Description 06/08/2025 Results Follow-Up [facility] FAMILY [facility]IC[facility] [address] [address] Fauzia Sterling MD [address] [address] Social History Tobacco Use Types Packs/Day Years Used Date Smoking Tobacco: Every Day Cigarettes 1.5 36 Started: 07/1989 Passive Smoke Exposure: Current Smokeless Tobacco: Never Comments:Smoking 1-1 1/2 pac k a day Alcohol Use Standard Drinks/Week Comments No 0 (1 standard drink = 0.6 oz pur e alcohol) [facility] Utilities Answer Date Recorded In the past 12 months has [employer], gas, oil, or water [employer] threatened to shut off services in your [...] any time in the past 12 m [facility], were you homeless or [...] Progress Notes * Fauzia Sterling MD - 06/08/2025 8:24 AM EST Notify the patient that the Cologuard screen came back positive. At this time I recommend we do a colonoscopy to look for anything that would have caused the Cologuard to be positive. I have placed that referral for colonoscopy documented in this encounter Plan of Treatment Upcoming Encounters Date Type Department Care Team (Late st Contact Info) Description 07/28/2025 9:30 AM EST Office Visit [facility] 1099 [facility] 100 [place] [address] Fauzia Sterling MD 1099 [facility] 100 [place] [address] 01/01/2026 11:45 AM EDT Appointment [facility] 3000 [facility] [address] [place] [phone] documented as of this encounter Goals Goal [...] documented as of this encounter Care Teams Core Dropper Relationship Specialty Start Date End Date Fauzia Sterling MD [address] [place] [address] PCP - General Family Medicine 09/03/18 documented as of this encounter
--- OUTSIDE RECORDS SUMMARY | 2025-07-17 16:01 | XMS_ITS | Encounter Summary ---
[facility] Address [address] [place] [address] Care Team Providers Care Mortgage Collector Name Role Phone Fauzia Sterling MD Primary Care Provider [phone] Reason for Visit * Reason Onset Date Comments Med Refill 07/03/2025 Encounter Details Date Type Department Care Team (Late st Contact Info) Description 07/03/2025 Refill [facility] GASTROENTEROLOGY [address] [phone] Anderson Jones MD [address]20 [place] [address] Social History Tobacco Use Types Packs/Day Years Used Date Smoking Tobacco: Every Day Cigarettes 1.5 36 Started: 07/1989 Passive Smoke Exposure: Current Smokeless Tobacco: Never Comments:Smoking 1-1 1/2 pac k a day Alcohol Use Standard Drinks/Week Comments No 0 (1 standard drink = 0.6 oz pur e alcohol) [facility] Utilities Answer Date Recorded In the past 12 months has [employer], gas, oil, or water company threatened [...] 07/28/2025 9:30 AM EST Office Visit [facility] FAM[facility] 1099 [facility] 100 [place] [phone] Fauzia Sterling MD 1099 [facility] 100 [place] [address] 01/01/2026 11:45 AM EDT Appointment [facility] 3000 [facility] 120 [place] [address] documented as of this [...] documented as of this encounter Care Teams Mortgage Collector Relationship Specialty Start Date End Date Fauzia Sterling MD [address] [place] [address] PCP - General Family Medicine 09/03/18 documented as of this encounter
--- OUTSIDE RECORDS SUMMARY | 2025-07-17 16:01 | XMS_ITS | Encounter Summary ---
Author Organization [facility] Address [address] [place] [address] Care Team Providers Care Author Name Role Phone Fauzia Sterling MD Primary Care Provider [phone] Reason for Visit * Reason Onset Date Comments Surgical Clearance 06/08/2025 Encounter Details Date Type Department Care Team (Late st Contact Info) Description 06/08/2025 Telephone [facility] GASTROENTEROLOGY [address] [phone] Anderson Reilly MD 1720 [place] [address] Surgical Clearance Social History Tobacco Use Types Packs/Day Years Used Date Smoking Tobacco: Every Day Cigarettes 1.5 36 Started: 07/1989 Passive Smoke Exposure: Current Smokeless Tobacco: Never Comments:Smoking 1-1 1/2 pac k a day Alcohol Use Standard Drinks/Week Comments No 0 (1 standard drink = 0.6 oz pur e alcohol) [facility] Utilities Answer Date Recorded In the past 12 months has [employer], gas, oil, or water company threatened to [...] any time in the past 12 m [facility], were you homeless or [...] encounter Miscellaneous Notes * Telephone Encounter - Markos Stubbs RMA - 06/15/2025 11:15 AM EST I spoke with Mr Perales. Surgical clearance given. * Telephone Encounter - Fauzia Sterling MD - 06/15/2025 10:11 AM EST Patient is okay to hold blood thinners for 3 to 5 days prior to the colonoscopy * Telephone Encounter - Markos Stubbs RMA - 06/15/2025 9:[address] Reilly recommend his patient to hold blood thinners for at least 3- 5 days prior to procedure.Please respond to this encounter. Thanks * Telephone Encounter - Cristine Beyer RegSched Rep - 06/08/2025 1:20 PM EST Summary: CARDIAC CLEARANCE WHAT: COLON WHEN: 07/14/25 WHO: DR. REILLY WHY: BLOOD THINNERS, [facility], [facility], DOCTOR UNKNOWN. documented in this encounter Plan of Treatment Upcoming Encounters Date Type Department Care Team (Late st Contact Info) Description 07/28/2025 9:30 AM EST Office Visit [facility] 1099 [facility] 100 [place] [address] Fauzia Sterling MD [address] [address] 01/01/2026 11:45 AM EDT Appointment [facility] [address] [facility] [address] [place] [address] documented as of this encounter [...] documented as of this encounter Care Teams Author Relationship Specialty Start Date End Date Fauzia Sterling MD 1099 [facility] 100 [place] [address] PCP - General Family Medicine 09/03/18 documented as of this encounter
--- OUTSIDE RECORDS SUMMARY | 2025-07-17 16:01 | XMS_ITS | Encounter Summary ---
Author [facility] Address [address] [place] [address] Care Team Providers Care Risk Control Field Representative Name Role Phone Fauzia Sterling MD Primary Care Provider [phone] Reason for Visit * Reason Comments Med Refill Encounter Details Date Type Department Care Team (Late st Contact Info) Description 05/23/2025 Refill [facility] FAMILY MEDIC[facility] [address] [phone] Fauzia Sterling MD [address] [address] Essential (primary) hypertension Social History Tobacco Use Types Packs/Day Years Used Date Smoking Tobacco: Every Day Cigarettes 1.5 36 Started: 07/1989 Passive Smoke Exposure: Current Smokeless Tobacco: Never Comments:Smoking 1-1 1/2 pac k a day Alcohol Use Standard Drinks/Week Comments No 0 (1 standard drink = 0.6 oz pur e alcohol) [facility] Utilities Answer Date Recorded In the past 12 months has [employer], gas, oil, or water [employer] threatened to shut off services in your [...] any time in the past 12 m [facility], were you homeless or living [...] Description 07/28/2025 9:30 AM EST Office Visit [facility] [address] [place] [phone] Fauzia Sterling MD [address] [facility] 100 [place], [place] [address] 01/01/2026 11:45 AM EDT Appointment [facility] 3000 [facility] 120 [place] [address] documented as of this encounter [...] of this encounter Visit Diagnoses Diagnosis Essential (primary) hypertension Unspecified essential hypertension documented in this encounter Additional Health Concerns Infection Onset Date Last Indicated Resolved Time Other Comment:Parainfluenza 3 per RVP 06.12.2025 01/02/2025 01/02/2025 documented as of this encounter Care Teams Risk Control Field Representative Relationship Specialty [place] [address] [place] [address] PCP - General Family Medicine 09/03/18 documented as of this encounter
--- OUTSIDE RECORDS SUMMARY | 2025-07-17 16:01 | XMS_ITS | Clinical Summary ---
[facility] Address [address] [place] [address] Care Team Providers Care Corporate Treasurer Name Role Phone Fauzia Whyte MD Primary Care Provider [phone] Allergies Active Allergy Reactions Criticality Noted Date [...] Pain. Active divalproex (DEPAKOTE) [address] tabletIndclaire ns:Chronic daily headache Take 1 tablet by mouth 2 (Two) Times a Day. 180 tablet 020 Active Needle, Disp, 18G X 1-07/24 miscIndications :Low testosterone in male Use for drawing up the medication 50 each 3 024 Active Needle, Disp, (Hypodermic Needle) 23G X 1 miscIndications :Low testosterone in male Use 1 Device As Needed (Injection of Testosterone). 50 each 11 024 Active ferrous sulfate 325 (65 FE) [...] once daily 30 tablet 11 025 Active lactulose (CHRONULAC) 10 GM/15ML solutionIndicat ions:Constipati on, unspecified constipation type Take 30 mL by mouth 2 (Two) Times a Day As Needed (constipation). 473 mL 1 025 Active ipratropium-alb uterol (DUO-NEB) 0.5-2.5 mg/3 ml nebulizer Take 3 mL by nebulization Every 4 (Four) Hours As Needed for Wheezing. 360 mL 025 Active Ventolin HFA 108 (90 Base) MCG/ACT inhalerIndicati ons:COPD with exacerbation INHALE 2 PUFFS BY MOUTH EVERY 4 HOURS NEEDED FOR WHEEZING 36 g 025 Active Fluticasone-Ume clidin-Vilant (Trelegy Ellipta) 100-62.5-25 MCG/ACT inhalerIndicati ons:Chronic obstructive pulmonary disease, unspecified COPD type Inhale 1 puff by mouth once daily 60 each 3 025 Active amLODIPine (NORVASC) 10 MG tabletIndicatio ns:Essential hypertension Take 1 tablet by mouth Daily. 90 tablet 3 025 Active escitalopram (LEXAPRO) 20 MG tabletIndicatio ns:Anxiety Take 1 tablet by mouth once daily 90 tablet 025 Active potassium chloride (KLOR-CON M20) 20 MEQ CR tabletIndicatio ns:Renovascular hypertension Take 1 tablet by mouth once daily 90 tablet 025 Active lisinopril-hydr ochlorothiazide (PRINZIDE,ZESTO RETIC) 20-12.5 MG per tabletIndicatio ns:Essential (primary) hypertension Take 2 tablets by mouth once daily 180 tablet 025 Active carvedilol (COREG) 25 MG tabletIndicatio ns:Essential hypertension TAKE 1 TABLET BY MOUTH TWICE DAILY WITH MEALS 180 tablet 025 Active enoxaparin sodium (LOVENOX) 120 MG/0.8ML solution prefilled syringe syringe Inject 0.8 mL under the skin into the appropriate area as directed Every 12 (Twelve) Hours. Or as directed by anticoagulation clinic. Start on 07/12/25 8 mL 025 Active sodium-potassiu m-magnesium sulfates (Suprep Bowel Prep Kit) 17.5-3.13-1.6 GM/177ML solution oral solution Take 1 bottle by mouth Take As Directed. Follow instructions that were mailed to your home. If you didn't receive these call [phone]. 354 mL 025 Active omeprazole (priLOSEC) 40 MG capsuleIndicati ons:Gastroesoph ageal reflux disease without esophagitis Take 1 capsule by mouth once daily 90 capsule 025 Active warfarin (COUMADIN) 10 MG tabletIndicatio ns:Anticoagulan t long-term use TAKE 1 TABLET BY MOUTH ONCE DAILY OR DIRECTED BY ANTICOAGULATION CLINIC. TAKE ON DIFFERENT DAYS THAN 5 MG 30 tablet Active atorvastatin (LIPITOR) 20 MG tablet Take 1 tablet by mouth once daily 30 tablet 2 025 Active busPIRone (BUSPAR) 5 MG tabletIndicatio ns:Anxiety Take 1 tablet by mouth twice daily 180 tablet 025 Active omeprazole (priLOSEC) 40 MG capsuleIndicati ons:Gastroesoph ageal reflux disease without esophagitis Take 1 capsule by mouth once daily 90 capsule 025 2024 Discontinued busPIRone (BUSPAR) 5 MG tabletIndicatio ns:Anxiety Take 1 tablet by mouth twice daily 180 tablet 025 2024 Discontinued warfarin (COUMADIN) 10 MG tabletIndicatio ns:Anticoagulan t long-term use TAKE 1 TABLET BY MOUTH ONCE DAILY OR DIRECTED BY ANTICOAGULATION CLINIC. 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 Likely from tobacco abuse testosterone injections Assessment & Plan (05/08/2024 9:27 AM EDT): Patient has upcoming follow-up with hematology on 05/27/2024. Advised to continue holding testosterone injections. Polycythemia likely worsened secondary to testosterone supplementation Will likely benefit from therapeutic phlebotomy Likely a contributing factor to uncontrolled blood pressure. Irregular sleep-wake rhythm, nonorganic origin 1 Dry eye 01/08/2024 Assessment & Plan (01/08/2024 11:17 AM EDT): He has tried [id number] drops and refresh eyedrops. Will give a [...] 024 Flu-like symptoms 07/03/2023 Other fatigue 04/03/2023 Polyarthritis 11/08/2022 Right hip pain 11/08/2022 [...] Decrease caffeine intake. Smoking cessation. Referral to [facility] for further evaluation. Abnormal stress test 02/04/2020 Overview (02/04/2020): Added automatically from request for surgery [id number] Painful lumpy right breast 09/09/2019 Elevated glucose [...] Carpal tunnel syndrome on both sides 11/07/2016 Anticoagulated on Coumadin 10/23/2016 Assessment & Plan (04/28/2025 9:03 AM EDT): Recurrent DVT's Goal INR 2-3 Precordial chest pain 10/12/2016 Tobacco abuse 10/04/2016 Assessment & Plan (05/08/2024 9:26 AM EDT): Discussed the importance of smoking cessation in regard to hypertension. Patient voices understanding, though has little interest at this time. Dizziness 10/04/2016 Nausea 10/04/2016 Chest pain on exertion 10/04/2016 Obesity due to excess calories 10/04/2016 Arthritis 08/22/2016 Reduced libido 08/22/2016 Chronic deep [...] Plantar fasciitis 08/22/2016 Polyuria 08/22/2016 Hypovolemia 08/22/2016 Resolved Problems Problem Noted Date Diagnosed Date Resolved Date Chronic respiratory failure with hypoxia 02/05/2025 04/28/2025 Chronic obstructive pulmonary disease 01/01/2025 04/28/2025 COPD with exacerbation 04/03/202304/28 Acute bronchitis 08/22/2016 04/28/2025 Encounters Date Type Department Care Team Description 5 9:10 AM EST Lab [facility] [address] [place] [address] Arrived 5 Anticoagulation Visit [facility] [address] [place] [address] Angelica Valenzuela, Relaster 5 Refill [facility] [address] [address] Fauzia Whyte MD Anxiety 5 Travel 5 Refill [facility] [address] [facility] [address] [place] [address] Alison Grider MD 5 Telephone [facility] [address] [place] [address] Angelica Valenzuela, Relaster 5 Telephone [facility] [address] [facility] [address] [place] [address] Anderson Jones MD 5 Refill [facility] [address] [facility] [address] [place] [address] Fauzia Whyte MD Anticoagulant long-term use 5 Refill [facility] [address] [facility] [address] [place] [address] Fauzia Whyte MD Gastroesophageal reflux disease without esophagitis 5 Refill [facility] [address] [facility] [address] [place] [address] Anderson Jones MD 5 Refill [facility] [address] [facility] [address] [place] [phone] Christelle Mujica, PharmD 5 Telephone [facility] [address] [facility] [address] [place] [phone] Sandra Naidu, [facility] 5 Refill [facility] [address] [facility] [address] [place] [address] Fauzia Whyte MD Essential hypertension 5 Telephone [facility] [address] [facility] [address] [place] [phone] Angelica Valenzuela, Relaster 5 Refill [facility] [address] [facility] [address] [place] [address] Alison Grider MD 5 Telephone [facility] [address] [facility] [address] [place] [address] Anderson Jones MD Surgical Clearance 5 Refill [facility] [address] [facility] [address] [place] [address] Fauzia Whyte MD Anticoagulant long-term use 5 Results Follow-Up [facility] [address] [facility] [address] [place] [address] Fauzia Whyte MD 5 9:05 AM EST Lab [facility] [address] [facility] [address] [place] [address] Chronic deep vein thrombosis (DVT) of proximal vein of lower extremity, unspecified laterality; Anticoagulant long-term use 5 Anticoagulation Visit [facility] [address] [facility] [address] [place] [address] Angelica Valenzuela, Relaster 5 Travel 5 Refill [facility] [address] [address] Fauzia Whyte MD Essential (primary) hypertension 5 Refill [facility] [address] [address] Fauzia Whyte MD Renovascular hypertension 5 Refill [facility] [address] [facility] [address] [place] [address] Alison Grider MD 5 Refill [facility] [address] [facility] [address] [place] [address] Fauzia Whyte MD Anticoagulant long-term use 5 8:43 AM EDT - 5 11:59 PM EDT Hospital Encounter [facility] [place] [address] [facility] [address] [place] [phone] Rae Truong, SIMEON Near syncope Discharge Disposition: Home or Self Care 5 Results Follow-Up [facility] [address] [place] [address] Rae Truong, PARATRANSIT DRIVER 5 Refill [facility] [address] [facility] [address] [place] [address] Fauzia Whyte MD Anxiety 5 Travel 5 11:17 AM EDT Hospital Encounter [facility] [address] [facility] [address] [place] [phone] Rae Truong, PARATRANSIT DRIVER SHANNAN (obstructive sleep apnea) 5 Travel 5 9:30 AM EDT Office Visit [facility] [address] [facility] [address] [place] [address] Fauzia Whyte MD Essential hypertension (Primary Dx); Anticoagulated on Coumadin; Chronic deep vein thrombosis (DVT) of proximal vein of lower extremity, unspecified laterality; Gastroesophageal reflux disease without esophagitis; Tobacco abuse; Immunization due; Combined opioid and non-opioid drug dependence, in remission; Mixed simple and mucopurulent chronic bronchitis; Polycythemia; Colon cancer screening 5 Travel 5 Refill [facility] [address] [facility] [address] [place] [phone] Kerrie Isaac, PARATRANSIT DRIVER Med Refill 5 Refill [facility] [address] [facility] [address] [place] [address] Alison Grider MD 5 Refill [facility] [address] [address] [place] [address] Fauzia Whyte MD Anxiety from Last 3 Months Immunizations Immunization Administration Dates Next Due COVID-19 (MODERNA) 1st,2nd,3 rd Dose Monovalent 03/10/2021 COVID-19 (PFIZER) BIVALENT 12+YRS 05/03/2022 Flu Vaccine Intradermal Quad 18-64YR 04/28/2019 Fluzone >6mos 04/28/2025,04/22/2024,04/08/2016 Fluzone (or Fluarix & Flulav al for [...] to Q uit: Not Asked; Counseling Given: Yes Comments:Smoking 1-1 1/2 pack a day Alcohol Use Standard Drinks/Week Comments No 0 (1 standard drink = 0.6 oz pur e alcohol) [facility] Utilities Answer Date Recorded In the past 12 months has [employer], [employer], oil, or water [employer] threatened to shut off services in your [...] Sign Reading Time Taken Comments Blood Pressure 120/74 04/28/2025 8:51 AM EDT Pulse 65 04/28/2025 8:51 AM EDT Temperature 36.9 C (98.4 F) 04/28/2025 8:51 AM EDT Respiratory Rate 20 04/28/2025 8:51 AM EDT Oxygen Saturation 95% 04/28/2025 8:51 AM EDT Inhaled Oxygen Concentration - - Weight 115 kg (253 lb 8.5 oz) 05/04/2025 11:34 A M EDT Height 175 cm (5' 8.9 ) 05/04/2025 11:34 AM EDT Body Mass Index 37.55 05/04/2025 11:34 AM EDT Plan of Treatment Upcoming Encounters Date Type Department Care Team (Late st Contact Info) Description 07/28/2025 9:30 AM EST Office Visit [facility] [address] [facility] [address] [place] [address] Fauzia Whyte MD [address] [facility] [address] [place] [address] 01/01/2026 11:45 AM EDT Appointment [facility] [address] [facility] [address] [place] [address] Health Maintenance Due Date Last Done Comments COLON CANCER SCREENING 5 YEA R SIGMOIDOSCOPY [address] COLONOGRAPHY 2009 FIT Testing (1 year) 2009 ZOSTER VACCINE (1 of 2) 2014 COLONOSCOPY 04/23/2023 04/23/2013 ANNUAL PHYSICAL 08/14/2024 08/14/2023 FECAL OCCULT BLOOD TEST 10/31/2024 11/01/2023 LUNG CANCER SCREENING 01/01/2026 01/01/2025 , 11/18/2024, 01/25/2022 TDAP/TD VACCINES (2 - Td or Tdap) 11/07/2026 017 COLOGUARD 05/24/2028 05/24/2025 COLORECTAL CANCER SCREENING 05/24/2028 HEPATITIS C SCREENING Completed 01/29/2018 , 10/04/2016 (Declined), 07/14/2015 Pneumococcal Vaccine 50+ Completed 04/23/2023 INFLUENZA VACCINE Completed 04/28/2025, , 04/28/2023, Additional history exists Goals Goal Patient Goal Type Associated Problems Recent Progress Patient-Stated? Author Track and Manage My Blood Pressure Patient Goals On track( 025 10:45 AM EST) Claudia Ward, JAYCEE Note: [...] or if there are questions about it. Procedures Procedure Name Priority Date/Time Associated Diagnosis Comments PROTIME-INR Routine 07/17/2025 9:06 AM EST Chronic deep vein thrombosis (DVT) of proximal vein of lower extremity, unspecified laterality Anticoagulant long-term use PROTIME-INR Routine 06/02/2025 9:04 AM EST Chronic deep vein thrombosis (DVT) of proximal vein of lower extremity, unspecified laterality Anticoagulant long-term use COLOGUARD Routine 05/24/2025 5:00 PM EST Colon cancer screening DUPLEX CAROTID BILATERAL CAR - PERFORMED PROCEDURE Routine 05/07/2025 9:43 AM EDT Near syncope HST Routine 05/05/2025 3:30 AM EDT SHANNAN (obstructive sleep apnea) CT ANGIOGRAM CHEST PULMONARY EMBOLISM STAT 01/01/2025 11:05 AM EDT SCANNED - INFLUENZA 04/28/2019 HEPATITIS PANEL, ACUTE Routine 07/14/2015 8:48 AM EST HM COLONOSCOPY Routine 04/23/2013 from Last 3 Months or Most Recently Relevant to Health Maintenance Results * (ABNORMAL) Protime-INR (07/17/2025 9:06 AM EST) Only the most recent of2 resultswithin the time period is included. Pathologist [facility] Protime 15.9(H) 12.0 - 14.7 Seconds 07/17/2025 2:08 PM EST [facility] INR 1.26(H) 0.90 - 1.10 07/17/2025 2:08 PM EST [facility] Blood Venipuncture / Unknown 07/17/2025 9:06 AM EST 07/17/2025 9:06 AM EST Fauzia Whyte MD LAB BLOOD ORDERABLES Final Re sult [facility]
[address] [place] [address], * (ABNORMAL) Cologuard - Stool, Per Rectum (05/24/2025 5:00 PM EST) Cologuard Positive( A) Negative 06/04/2025 6:44 PM EST [facility] (CLIA #:[id number]) Comment: The Cologuard (TM) test was performed on this specimen. POSITIVE TEST RESULT. A positive Cologuard result should be followed with a colonoscopy or visual examination of the colon. The normal value (reference range) for this assay is negative. TEST DESCRIPTION: Composite algorithmic analysis of stool DNA-biomarkers with hemoglobin immunoassay. Quantitative values of individual biomarkers are not reportable and are not associated with individual biomarker result reference ranges. Cologuard is intended for colorectal cancer screening of adults of either sex, 45 years or older, who are at average-risk for colorectal cancer (CRC). Cologuard has been approved for use by the U.S. FDA. The performance of Cologuard was established in a cross sectional study of average-risk adults aged 50-84. Cologuard performance in patients ages 45 to 49 years was estimated by sub-group analysis of near-age groups. Colonoscopies performed for a positive result may find as the most clinically significant lesion: colorectal cancer [4.0%], advanced adenoma (including sessile serrated polyps greater than or equal to 1cm diameter) [20%] or non- advanced adenoma [31%]; or no colorectal neoplasia [45%]. These estimates are derived from a prospective cross-sectional screening study of 10,000 individuals at average risk for colorectal cancer who were screened with both Cologuard and colonoscopy. (Gurmeet Ritchie. et al, N Engl J Med 2014;370(14):4761-5652.) Cologuard may produce a false negative or false positive result (no colorectal cancer or precancerous polyp present at colonoscopy follow up). A negative Cologuard test result does not guarantee the absence of CRC or advanced adenoma (pre-cancer). The current Cologuard screening interval is every 3 years. ([place] Cancer Society and U.S. Multi-Society Task Force). Cologuard performance data in a 10,000 patient pivotal study using colonoscopy as the reference method can be accessed at the following location: www.[email or web address]/results. Additional description of the Cologuard test process, warnings and precautions can be found at www.[employer]er[employer].com. Stool specimen (specimen) Specimen from rectum / Unknown 05/24/2025 5:00 PM EST 05/27/2025 11:53 AM EST us Fauzia Whyte MD BODY FLUIDS AND STOOLS ORDERA ZACK Final Result [facility] (CLIA #:[id number]) [place] [address], * DUPLEX CAROTID BILATERAL CAR - PERFORMED PROCEDURE (05/07/2025 9:43 AM EDT) Prox CCA PSV 114.0 cm/sec Prox CCA EDV 28.5 cm/sec Right Mid CCA PSV 79.2 cm/sec right Mid CCA EDV 22.9 cm/sec Dist CCA PSV 83.3 cm/sec Dist CCA EDV 17.6 cm/sec Prox ICA PSV 93.0 cm/sec Prox ICA EDV 28.0 cm/sec Mid ICA PSV 92.0 cm/sec Mid ICA EDV 31.0 cm/sec Dist ICA PSV 63.0 cm/sec Dist ICA EDV 28.0 cm/sec Prox ECA PSV 109.0 cm/sec Prox ECA EDV 22.0 cm/sec Vertebral A PSV 34.8 cm/sec Vertebral A EDV 13.3 cm/sec Prox SCLA PSV 91.0 cm/sec Prox CCA PSV 132.0 cm/sec Prox CCA EDV 34.6 cm/sec left Mid CCA PSV 145.0 cm/sec left Mid CCA EDV 40.1 cm/sec Dist CCA PSV 109.0 cm/sec Dist CCA EDV 26.7 cm/sec Prox ICA PSV 80.0 cm/sec Prox ICA EDV 30.0 cm/sec Mid ICA PSV 79.0 cm/sec Mid ICA EDV 29.0 cm/sec Dist ICA PSV 90.0 cm/sec Dist ICA EDV 40.0 cm/sec Prox ECA PSV 104.0 cm/sec Prox ECA EDV 23.0 cm/sec Vertebral A PSV 40.0 cm/sec Vertebral A EDV 15.0 cm/sec Prox SCLA PSV 97.0 cm/sec ICA/CCA ratio 1.16 ICA/CCA ratio 0.73 Right arm BP 133/84 mmHg Left arm BP 128/80 mmHg Anatomical Region Laterality Modality Ultrasound Narrative 05/07/2025 1:44 PM EDT Right internal carotid artery demonstrates a less than 50% stenosis. Antegrade right vertebral flow. Left internal carotid artery demonstrates a less than 50% stenosis. Antegrade left vertebral flow. Study Impression Right ICA: Imaging indicates <50% stenosis. Left ICA: Imaging indicates <50% stenosis. Study Findings Right CCA Dist: Heterogeneous plaque present. Right ICA Prox: Heterogeneous plaque present. Right Vertebral: Antegrade flow noted. Left CCA Dist: Heterogeneous plaque present. Left ICA Prox: Heterogeneous plaque present. Left Vertebral: Antegrade flow noted. Additional Study Details The study is technically good for diagnosis. Prior exam done 2020 us Rae Truong PARATRANSIT DRIVER CV VASCULAR ORDERABLES Final Result * HST (05/05/2025 3:30 AM EDT) Impressions [...] agree with the interpretation. Les Montgomery MD, [facility] Critical care and Sleep medicine Narrative SLEEP MEDICINE - 05/11/2025 3:16 PM EDT PATIENT NAME: Jesus Perales : 1965; Age: 59 y.o. OVERNIGHT UNATTENDED TYPE 3 POLYSOMNOGRAM DATE OF STUDY: 2024. REQUESTING PHYSICIAN: Rae Truong REASON FOR STUDY: Somnolence STUDY METHODOLOGY: Patient had a home sleep test with an [employer] Night One device that measured airflow at [...] 90% O2 sat: 231.8 min us Rae Truong PARATRANSIT DRIVER SLEEP CENTER ORDERABLES Final Result SLEEP MEDICINE * CT Angiogram Chest Pulmonary Embolism (01/01/2025 11:05 AM EDT) Anatomical Region Laterality Modality Chest N/A Computed Tomogra phy 01/01/2025 11:1 5 AM EDT Impressions 01/01/2025 11:23 AM EDT Impression: 1.Negative for pulmonary embolus. 2.No acute cardiopulmonary process. 3.Left adrenal myolipoma. Electronically Signed: Leo Feng MD 01/01/2025 11:23 AM EDT Workstation ID: [id number] Narrative 01/01/2025 11:[address] ANGIOGRAM [...] MD 01/01/2025 11:23 AM EDT Workstation ID: [id number] Leslie Arciniega PA-C IM CT ORDERABLES Final Result * SCANNED - INFLUENZA (04/28/2019) Fauzia Whyte MD CHART REVIEW TABS Final Re sult * Hepatitis panel, acute (07/14/2015 8:48 AM EST) Hep A IgM Negative Negative [facility] (AM[facility]UL[facility]) Hepatitis B Surface Ag Negative Negative [facility] ([facility]UL[facility]) Hep B Core IgM Negative [...] offers HCV Ab w/Reflex to Verification test #[id number]. 07/14/2015 8:48 AM EST 07/14/2015 11:53 PM EST Fauzia Whyte MD LAB BLOOD ORDERABLES Edited R esult - Final [facility] (AMBULATORY) [address] [place] [address], [place] [phone] * COLONOSCOPY (04/23/2013) Colonoscopy ORDERING DR. FAUZIA WHYTE, COMPLETED Historical Provider HEALTH MAINTENANCE Final Result from Last 3 Months or Most Recently Relevant to Health Maintenance Additional Health Concerns Infection Onset Date Last Indicated Other Comment:Parainfluenza [...] Of Support Discussed With: Patient Care Teams Corporate Treasurer Relationship Specialty [place] [address] [place] [address] PCP - General Family Medicine 09/03/18
--- OUTSIDE RECORDS SUMMARY | 2025-07-17 16:01 | XMS_ITS | Encounter Summary ---
[facility] Address [address] [place] [address] Care Team Providers Care Domain Architect Name Role Phone Fauzia Sterling MD Primary Care Provider [phone] Encounter Details Date Type Department Care Team (Latest Contact Info) Description 06/02/2025 Travel Social History Tobacco Use Types Packs/Day Years Used Date Smoking Tobacco: Every Day Cigarettes 1.5 36 Started: 07/1989 Passive Smoke Exposure: Current Smokeless Tobacco: Never Comments:Smoking 1-1 1/2 pac k a day Alcohol Use Standard Drinks/Week Comments No 0 (1 standard drink = 0.6 oz pur e alcohol) [facility] Utilities Answer Date Recorded In the [...] 07/28/2025 9:30 AM EST Office Visit [facility] [address] [facility] [address] [place] [address] Fauzia Sterling MD [address] [facility] [address] [place] [address] 01/01/2026 11:45 AM EDT Appointment [facility] [place] [address] [facility] [address] [place] [address] documented as of this encounter Goals Goal [...] documented as of this encounter Care Teams Domain Architect Relationship Specialty Start Date End Date Fauzia Sterling MD [address] [facility] [address] [place] [address] PCP - General Family Medicine 09/03/18 documented as of this encounter
--- OUTSIDE RECORDS SUMMARY | 2025-07-17 16:01 | XMS_ITS | Encounter Summary ---
[facility] Organization [facility] Address [address] [place] [address] Care Team Providers Care Firepot Operator And Tender Name Role Phone Fauzia Sterling MD Primary Care Provider Encounter Details Date Type Department Care Team (Late st Contact Info) Description 06/02/2025 Anticoagulation Visit [facility] CL[facility]IC [address] [facility] [address] [place] [address] Angelica Valenzuela, Postal Supervisor Social History Tobacco Use Types Packs/Day Years Used Date Smoking Tobacco: Every Day Cigarettes 1.5 36 Started: 07/1989 Passive Smoke Exposure: Current Smokeless Tobacco: Never Comments:Smoking 1-1 1/2 pac k a day Alcohol Use Standard Drinks/Week Comments No 0 (1 standard drink = 0.6 oz pur e alcohol) [facility] Utilities Answer Date Recorded In the past 12 months has [employer], [employer], oil, or water [employer] threatened to shut off services in your [...] any time in the past 12 m [facility], were you homeless or living in [...] this encounter Progress Notes * Angelica Valenzuela, Postal Supervisor - 06/02/2025 2:51 PM EST Anticoagulation Clinic - Remote Progress Note REMOTE [...] 2.52 3.13 Notes recv'd 05/23; zpak Date 06/0908/25/19 310/09 Total WeeklyDose 65mg 60mg 60mg 60mg 60mg 60mg 60mg 60mg 60mg 60mg 65mg? 60mg INR 3.71 3.34 2.78 2.29 2.92 3.26 2.7 3.01 2.69 2.25 3.57 2.61 Notes low-carb diet hematuria incorrect extra dose Date 04/0508/06/2008/13 Total WeeklyDose 60mg 60mg 60mg 60mg 60mg 65mg 60mg 60mg 60mg 60mg 60mg 60mg INR 2.67 protime >120, unable to calc INR 2.81 STITCHING MACHINE OPERATOR 3.4 POCT 3.02 3.01 3.39 2.55 2.05 [...] hold testosterone Overdue less GLV Date 08/17 3/10/18 Total Weekly Dose 60mg 60mg 60 mg [...] 2.15 2.77 2.45 Notes Date 10/28 12/30 02/12 03/30 06/02 Total Weekly Dose 55 mg 55 mg 55 mg Non compliant 55 mg 55 mg INR 2.22 2.02 2.84 2.34 2.57 Notes Rec'd 12/31 Rec'd 02/13 Overdue *takes medication in the morning* Phone Interview: Verbal Release Authorization signed on 10/14/2018 -- may speak with Jim Perales (brother); Victor Hugo Perales Jr (son) Tablet Strength: 5mg and 10mg tablets (07/21/21) Patient Contact Info: [phone] (mobile) Lab Contact Info: APOLINAR Bueno Patient Findings Negatives: Signs/symptoms of thrombosis, Signs/symptoms of bleeding, Laboratory test error suspected, Change in health, Change in alcohol use, Change in activity, Upcoming invasive procedure, Emergency department visit, Upcoming dental procedure, Missed doses, Extra doses, Change in medications, Change in diet/appetite, Hospital admission, Bruising, Other complaints Comments: All findings negative per patient. Dosing verified. Plan: INR is therapeutic at 2.57 (goal 2.0-3.0). Instructed patient to continue warfarin 10 mg daily except 5 mg Tues/Thurs/Sat until recheck. Recheck INR in 4 weeks, 06/30. Verbal information provided over the phone. Jesus Perales RBV dosing instructions, expresses understanding by teach back, and has no further questions at this time. Angelica Valenzuela CPhT, [facility] 15:02 EST 06/02/2025 I, Stephan Mckinley, PharmD, have reviewed the note in full and agree with the assessment and plan. 06/02/25 15:31 EST Stephan Medina, PharmD, have reviewed the note in full and agree with the assessment and plan. 06/02/25 15:29 EST documented in this encounter Plan of Treatment Upcoming Encounters Date Type Department Care Team (Late st Contact Info) Description 07/28/2025 9:30 AM EST Office Visit [facility] FAMILY MEDICINE [address] [place] [address] Fauzia Sterling MD [address] [place] [address] 01/01/2026 11:45 AM EDT Appointment [facility] [place] [address] [facility] [address] [place] [address] documented as of this encounter [...] documented as of this encounter Care Teams Firepot Operator And Tender Relationship Specialty Start Date End Date Fauzia Sterling MD [address] [address] PCP - General Family Medicine 09/03/18 documented as of this encounter
--- OUTSIDE RECORDS SUMMARY | 2025-07-17 16:01 | XMS_ITS | Encounter Summary ---
Author Organization [facility] Address [address] [place] [address] Care Team Providers Care Business Enterprise Officer Name Role Phone Fauzia Sterling MD Primary Care Provider [phone] Encounter Details Date Type Department Care Team (Late st Contact Info) Description 01/09/2012 Conversion En[address] [facility] HISTORICAL CONV [address] [place] [address] Interface, See Report Social History [...] ' Verenice Dove M.D. ' Rae Clark SIMEON [address] [facility], [address] [place] [address] [place] OFFICE NOTE ESVIN ROBERTSON : 1965 DATE [...] with the above plan. Verenice Dove M.D.* DELMY/jacobalcammie Doc. ID [id number] Rev. #0 cc: Dr. Rodriguez Page 3 of 3 Page 1 of 3 Authenticated by VERENICE DOVE MD On 01/10/2012 01:49:08 PM documented in this encounter Plan of Treatment Upcoming Encounters Date Type Department Care Team (Late st Contact Info) Description 07/28/2025 9:30 AM EST Office Visit [facility] MEDICINE [address] [place] [address] Fauzia Sterling MD [address] [facility] 100 [place] [address] 01/01/2026 11:45 AM EDT Appointment [facility] [place] [address] [facility] 120 [place] [address] documented as of this encounter [...] documented as of this encounter Care Teams Business Enterprise Officer Relationship Specialty Start Date End Date Fauzia Sterling MD [address] [facility] 100 [place] [address] PCP - General Family Medicine 09/03/18 documented as of this encounter
--- OUTSIDE RECORDS SUMMARY | 2025-07-17 16:01 | XMS_ITS | Encounter Summary ---
Author Organization [facility] Address [address] [place] [address] Care Team Providers Care Impregnator And Drier Name Role Phone Fauzia Sterling MD Primary Care Provider [phone] Reason for Visit * Reason Comments Med Refill Encounter Details Date Type Department Care Team (Late st Contact Info) Description 05/18/2025 Refill [facility] FAMILY MEDICINE [address] [address] Alison Grider MD [address] [address] Social History Tobacco Use Types Packs/Day Years Used Date Smoking Tobacco: Every Day Cigarettes 1.5 36 Started: 07/1989 Passive Smoke Exposure: Current Smokeless Tobacco: Never Comments:Smoking 1-1 1/2 pac k a day Alcohol Use Standard Drinks/Week Comments No 0 (1 standard drink = 0.6 oz pur e alcohol) [facility] Utilities Answer Date Recorded In the past 12 months has [employer], gas, oil, or water company threatened to [...] any time in the past 12 m [facility], were you homeless or living [...] Description 07/28/2025 9:30 AM EST Office Visit [facility] FAMILY MEDICINE [address] [facility] 100 [place] [address] Fauzia Sterling MD [address] [facility] 100 [place] [address] 01/01/2026 11:45 AM EDT Appointment [facility] [place] [address] [facility] [address] [place] [address] documented as of this encounter [...] documented as of this encounter Care Teams Impregnator And Drier Relationship Specialty [place] [address] [place] [address] PCP - General Family Medicine 09/03/18 documented as of this encounter
--- OUTSIDE RECORDS SUMMARY | 2025-07-17 16:01 | XMS_ITS | Encounter Summary ---
Author Organization [employer] ([place], [place], [place], [place], [place]) Address [address] [place] [address] Care Team Providers Care Center Lead Consultant Name Role Phone Unavailable Primary Care Provider Unavailabl e Encounter Details Date Type Department Care Team (Late st Contact Info) Description 11/12/2018 Transcribed Document [facility] Family Medicine [facility] [place] [place] [address] ProviderJulito MD [address] [place] [address] [id number] Social History Tobacco Use Types Packs/Day Years [...] On: 11/12/2018 13:23 EDT by SAM PARISI blasting machine operator Process Patient Disposition : Discharge Personal Belongings [...] - 11/12/2018 13:23 EDT Electronically signed by Shayla [facility] Conversion Chemical Etch Operator Cerner at 11/08/2022 11:29 AM CDT documented in this encounter Plan of Treatment Not on file documented as of this encounter Visit Diagnoses Not on filedocumented in this encounter
--- OUTSIDE RECORDS SUMMARY | 2025-07-17 16:01 | XMS_ITS | Encounter Summary ---
[facility] Organization [facility] Address [address] [place] [address] Care Team Providers Care Senior Director Of Global [employer] Technology Solutions Name Role Phone Fauzia Sterling MD Primary Care Provider [phone] Reason for Visit * Reason Comments Med Refill Encounter Details Date Type Department Care Team (Late st Contact Info) Description 05/19/2025 Refill [facility] FAMILY MEDICINE [address] [phone] Fauzia Sterling MD [address] [address] Renovascular hypertension Social History Tobacco Use Types Packs/Day Years Used Date Smoking Tobacco: Every Day Cigarettes 1.5 36 Started: 07/1989 Passive Smoke Exposure: Current Smokeless Tobacco: Never Comments:Smoking 1-1 1/2 pac k a day Alcohol Use Standard Drinks/Week Comments No 0 (1 standard drink = 0.6 oz pur e alcohol) [facility] Utilities Answer Date Recorded In the past 12 months has [employer], gas, oil, or water [employer] threatened to shut off services in your [...] in the past 12 m [facility], were you homeless or living in a correction (including now)? No 11/18/2024 Abuse Screen Answer [...] Description 07/28/2025 9:30 AM EST Office Visit [facility]IC[facility] [address] [facility] 100 [place] [address] Fauzia Sterling MD [address] [facility] 100 [place] [address] 01/01/2026 11:45 AM EDT Appointment [facility] [address] [facility] 120 [place] [address] documented as of this encounter [...] as of this encounter Visit Diagnoses Diagnosis Renovascular hypertension Secondary renovascular hypertension, unspecified documented in this encounter Additional Health Concerns Infection Onset Date Last Indicated Resolved Time Other Comment:Parainfluenza 3 per RVP 01.01.2025 01/02/2025 01/02/2025 documented as of this encounter Care Teams Senior Director Of Global Commercial Technology Solutions Relationship Specialty Start Date End Date Fauzia Sterling MD [address] [place] [address] PCP - General Family Medicine 09/03/18 documented as of this encounter
--- OUTSIDE RECORDS SUMMARY | 2025-07-17 16:01 | XMS_ITS | Encounter Summary ---
Author Organization [employer] ([place], [place], [place], [place], [place]) Address [address] [place] [address] Care Team Providers Care Lean Manufacturing Engineer Name Role Phone Unavailable Primary Care Provider Unavailabl e Encounter Details Date Type Department Care Team (Late st Contact Info) Description 11/12/2018 Transcribed Document [facility] Family Medicine [address] [place] [address] ProviderJulito MD [address] [place] [id number] Social History Tobacco Use Types Packs/Day Years Used Date Smoking Tobacco: Never Assessed Comments Unknown Sex and Gender Information Value Date Recorded Sex Assigned at Unknown 01/19/2022 4:47 PM CDT Legal Sex Male 6:33 PM CDT Gender Identity Not on file Sexual Orientation Not on file documented as of this encounter Miscellaneous Notes * Cerner Conversion Note - Historical ProviderMD - 11/12/2018 2:41 PM CDT CR Chest 1 Vw Portable Ordered: 11/12/2018 Modified Reason for Exam: pain 11/12/2018 14:02 11/12/2018 14:41 (NICOLAS MCALLISTER PA) Reviewed by Provider, No further action required x1 Electronically signed by Sumit Mcguire Conversion Territory Account Representative Cerner at 11/08/2022 11:27 AM CDT documented in this encounter Plan of Treatment Not on file documented as of this encounter Visit Diagnoses Not on filedocumented in this encounter
--- OUTSIDE RECORDS SUMMARY | 2025-07-17 16:01 | XMS_ITS | Encounter Summary ---
Author Organization [facility] Address [address] [place] [address] Care Team Providers Care Children Counselor Name Role Phone Fauzia Sterling MD Primary Care Provider [phone] Reason for Visit * Reason Onset Date Comments Med Refill 07/02/2025 Encounter Details Date Type Department Care Team (Late st Contact Info) Description 07/02/2025 Refill [facility] CLINIC [address] [facility] [address] [place] [address] Christelle Mujica, PharmD [address] [place] [address] Social History Tobacco Use Types Packs/Day Years Used Date Smoking Tobacco: Every Day Cigarettes 1.5 36 Started: 07/1989 Passive Smoke Exposure: Current Smokeless Tobacco: Never Comments:Smoking 1-1 1/2 pac k a day Alcohol Use Standard Drinks/Week Comments No 0 (1 standard drink = 0.6 oz pur e alcohol) [facility] Utilities Answer Date Recorded In the past 12 months has [employer], gas, oil, or water company threatened [...] [facility] FAMILY MEDICINE [address] [facility] 100 [place] [address] Fauzia Sterling MD [address] [facility] 100 [place] [address] 01/01/2026 11:45 AM EDT Appointment [facility] [address] [facility] 120 [place] [address] documented as of this encounter [...] documented as of this encounter Care Teams Children Counselor Relationship Specialty Start Date End Date Fauzia Sterling MD [address] [place] [address] PCP - General Family Medicine 09/03/18 documented as of this encounter
--- OUTSIDE RECORDS SUMMARY | 2025-07-17 16:01 | XMS_ITS | Encounter Summary ---
[facility] Organization [facility] Address [address] [place] [address] Care Team Providers Care Assembly Line Upholsterer Name Role Phone Fauzia Sterling MD Primary Care Provider [phone] Reason for Visit * Reason Comments Med Refill Encounter Details Date Type Department Care Team (Late st Contact Info) Description 07/17/2025 Refill [facility] FAMILY MEDICINE [address] [phone] Fauzia Sterling MD [address] [address] Anxiety Social History Tobacco Use [...] Recorded In the past 12 months has [employer], gas, oil, or water company threatened to [...] Description 07/28/2025 9:30 AM EST Office Visit [facility] FAM[facility] [address] [facility] 100 [place] [address] Fauzia Sterling MD [address] [facility] 100 [place], [place] [address] 01/01/2026 11:45 AM EDT Appointment [facility] [place] [address] [facility] [address] [place] [address] documented as of this encounter [...] as of this encounter Care Teams Assembly Line Upholsterer Relationship Specialty Start Date End Date Atkins, Fauzia E., MD [address] [place] [address] PCP - General Family Medicine 09/03/18 documented as of this encounter
--- OUTSIDE RECORDS SUMMARY | 2025-07-17 16:01 | XMS_ITS | Encounter Summary ---
Author Organization [facility] Address [address] [place] [address] Care Team Providers Care Drafter Plumbing Name Role Phone Fauzia Sterling MD Primary Care Provider [phone] Reason for Visit * Reason Comments Med Refill Encounter Details Date Type Department Care Team (Late st Contact Info) Description 07/05/2025 Refill [facility] FAMILY MEDICINE [address] [address] Fauzia Sterling MD [address] [address] Gastroesophageal reflux disease without esophagitis Social History Tobacco Use Types Packs/Day Years Used Date Smoking Tobacco: Every Day Cigarettes 1.5 36 Started: 07/1989 Passive Smoke Exposure: Current Smokeless Tobacco: Never Comments:Smoking 1-1 1/2 pac k a day Alcohol Use Standard Drinks/Week Comments No 0 (1 standard drink = 0.6 oz pur e alcohol) [facility] Utilities Answer Date Recorded In the past 12 months has [employer], gas, oil, or water [employer] threatened to shut off services in your [...] any time in the past 12 m [facility], were you homeless or living in [...] Description 07/28/2025 9:30 AM EST Office Visit [facility] FAMILY MEDICINE [address] [place] [address] Fauzia Sterling MD [address] [facility] 100 [place] [address] 01/01/2026 11:45 AM EDT Appointment [facility] [address] [facility] 120 [place] [address] documented as of this encounter [...] documented as of this encounter Care Teams Drafter Plumbing Relationship Specialty [place] [address] [place] [address] PCP - General Family Medicine 09/03/18 documented as of this encounter
--- OUTSIDE RECORDS SUMMARY | 2025-07-17 16:01 | XMS_ITS | Encounter Summary ---
Author Organization [employer] ([place], [place], [place], [place], [place]) Address [address] [place] [address] Care Team Providers Care Content Management Specialist Name Role Phone Unavailable Primary Care Provider Unavailabl e Encounter Details Date Type Department Care Team (Late st Contact Info) Description 11/12/2018 Transcribed Document [facility] Family Medicine [facility] [place] [address] ProviderJulito MD [address] [place] [address] Social History Tobacco Use Types Packs/Day [...] On: 11/12/2018 11:11 EDT by SAM PARISI PAPER CONE MACHINE TENDER Triage Across the Room Triage Date/Time : 11/12/2018 11:11 EDT Chief Complaint : Small burning pain in epigastric area since last night. Has hx of GERD. SAM PARISI RN - 11/12/2018 11:11 EDT DCP GENERIC CODE Tracking Acuity : 3 - Urgent Tracking Group : [facility] ED SAM Dang RN - 11/12/2018 11:11 EDT Mode of [...] Onset Date: Unspecified ; Created By: CONTRIBUTOR_SYSTEM, [email or web address]; Reaction Status: Active ; Category: Drug ; Substance: penicillin ; Type: Allergy ; Updated By: CONTRIBUTOR_SYSTEM [email or web address]; Reviewed Date: 10/27/2007 12:59 EDT Diagnosis Control ED (As Of: 11/12/2018 11:17:46 EDT) Diagnoses(Active) Chest pain Date: 11/12/2018 ; Diagnosis Type: Reason For Visit ; Confirmation: Complaint of ; Clinical Dx: Chest pain ; Classification: Medical ; Clinical Service: Emergency medicine ; Code: PNED ; Probability: 0 ; Diagnosis Code: [id number] ED Height and Weight Height Source : Stated Height Entry Format : [place] Height, Feet : 5 ft(Converted to: 152 cm, 60 Inch) Height, Inches : 10 Inch(Converted to: 0 ft 10 Inch, 25.40 cm) Clinical Height : 177.8 cm Weight Source, ED : Critical estimated dosing weight Weight Entry Format : [place] Weight, Pounds : 232 lb Clinical Dosing Weight : 105.45 kg Body Surface Area (BSA) : 2.23 m2 Body Mass Index : 33.4 kg/m2 (HI) [place] Body Weight (IBW) : 72.02 kg SAM PARISI RN - 11/12/2018 11:11 EDT Pain Assessment Pain [...] the text rendition version of the form. Electronically signed by Sumit Mcguire Conversion Oil Well Services Superintendent Cerner at 11/08/2022 11:40 AM CDT documented in this encounter Plan of Treatment Not on file documented as of this encounter Visit Diagnoses Not on filedocumented in this encounter
--- OUTSIDE RECORDS SUMMARY | 2025-07-17 16:01 | XMS_ITS | Encounter Summary ---
Author Organization [employer] ([place], [place], [place], [place], [place]) Address [address] [place] [address] Care Team Providers Care Supervising Fire Marshal Name Role Phone Unavailable Primary Care Provider Unavailabl e Encounter Details Date Type Department Care Team (Late st Contact Info) Description 11/12/2018 Transcribed Document [facility] Family Medicine [facility] [place] [address] ProviderJulito MD [address] [place] [address] Social History Tobacco Use Types Packs/Day Years Used Date Smoking Tobacco: Never Assessed Comments Unknown Sex and Gender Information Value Date Recorded Sex Assigned at Unknown 01/19/2022 4:47 PM CDT Legal Sex Male 6:33 PM CDT Gender Identity Not on file Sexual Orientation Not on file documented as of this encounter Miscellaneous Notes * Sourav Conversion Note - Julito ProviderMD - 11/12/2018 12:39 PM CDT Electronically signed by Shayla [facility] Conversion Ultrasound Technologist Sourav at 11/08/2022 11:22 AM CDT documented in this encounter Plan of Treatment Not on file documented as of this encounter Visit Diagnoses Not on filedocumented in this encounter
--- OUTSIDE RECORDS SUMMARY | 2025-07-17 16:02 | XMS_ITS | Encounter Summary ---
Author Organization [facility] Address [address] [place] [address] Care Team Providers Care Hammer Mill Operator Name Role Phone Fauzia Sterling MD Primary Care Provider [phone] Encounter Details Date Type Department Care Team (Late st Contact Info) Description 11/24/2024 Results Follow-Up [facility] FAMILY MEDICINE [address] [address] Fauzia Sterling MD [address] [address] Social History Tobacco Use Types Packs/Day Years Used Date Smoking Tobacco: Every Day Cigarettes 1 35 Passive Smoke Exposure: Current Smokeless Tobacco: Never Comments:Smoking 1-1 1/2 pac k a day Alcohol Use Standard Drinks/Week Comments No 0 (1 standard drink = 0.6 oz pur e alcohol) [facility] Utilities Answer Date Recorded In the past 12 months has [employer], gas, oil, or water [employer] threatened to shut off services in your [...] any time in the past 12 m [facility], were you homeless or [...] [facility] FAMILY MEDIC[facility] [address] [facility] 100 [place] [phone] Fauzia Sterling MD [address] [facility] 100 [place], [place] [address] 01/01/2026 11:45 AM EDT Appointment [facility] [place] 3000 [facility] [address] [place] [address] documented as of this encounter [...] documented as of this encounter Care Teams Hammer Mill Operator Relationship Specialty [place] [address] [place] [address] PCP - General Family Medicine 09/03/18 documented as of this encounter
--- OUTSIDE RECORDS SUMMARY | 2025-07-17 16:02 | XMS_ITS | Encounter Summary ---
Author Organization [facility] ystem Address [address] [place] [address] Care Team Providers Care Irish Moss Gatherer Name Role Phone Fauzia Sterling MD Primary Care Provider [phone] Encounter Details Date Type Department Care Team (Late st Contact Info) Description 11/17/2024 Results Follow-Up [facility] FAMILY MEDICINE [address] [address] Fauzia Sterling MD [address] [address] Social History Tobacco Use Types Packs/Day Years Used Date Smoking Tobacco: Every Day Cigarettes 1 35 Passive Smoke Exposure: Current Smokeless Tobacco: Never Comments:Smoking 1-1 1/2 pac k a day Alcohol Use Standard Drinks/Week Comments No 0 (1 standard drink = 0.6 oz pur e alcohol) [facility] Utilities Answer Date Recorded In the past 12 months has [employer], gas, oil, or water [employer] threatened to shut off services in your [...] any time in the past 12 m [facility], were you homeless or living [...] Description 07/28/2025 9:30 AM EST Office Visit [facility] [address] [place] [phone] Fauzia Sterling MD [address] [place] [address] 01/01/2026 11:45 AM EDT Appointment [facility] 3000 [facility] [address] [place] [address] documented as of this encounter [...] documented as of this encounter Care Teams Irish Moss Gatherer Relationship Specialty Start Date End Date Fauzia Sterling MD [address] [address] PCP - General Family Medicine 09/03/18 documented as of this encounter
--- OUTSIDE RECORDS SUMMARY | 2025-07-17 16:02 | XMS_ITS | Encounter Summary ---
Author Organization [facility] ystem Address [address] [place] [address] Care Team Providers Care Kiln Car Unloader Name Role Phone Fauzia Sterling MD Primary Care Provider [phone] Encounter Details Date Type Department Care Team (Late st Contact Info) Description 12/22/2024 Results Follow-Up [facility] FAMILY MEDICINE [address] [place] [phone] Macarena Chin PA-C [address] [place] [address] Social History Tobacco Use Types Packs/Day Years Used Date Smoking Tobacco: Every Day Cigarettes 1 35 Passive Smoke Exposure: Current Smokeless Tobacco: Never Comments:Smoking 1-1 1/2 pac k a day Alcohol Use Standard Drinks/Week Comments No 0 (1 standard drink = 0.6 oz pur e alcohol) [facility] Utilities Answer Date Recorded In the past 12 months has [employer], gas, oil, or water [employer] threatened to shut off services in your [...] time in the past 12 m [facility], were you homeless or living in a [...] Description 07/28/2025 9:30 AM EST Office Visit [facility] FAMILY MEDICINE [address] [phone] Fauzia Sterling MD [address]99 [facility] 100 [place] [address] 01/01/2026 11:45 AM EDT Appointment [facility] 3000 [facility] [address] [place] [address] documented as of this encounter [...] documented as of this encounter Care Teams Kiln Car Unloader Relationship Specialty Start Date End Date Fauzia Sterling MD [address]99 [facility] 100 [place] [address] PCP - General Family Medicine 09/03/18 documented as of this encounter
--- OUTSIDE RECORDS SUMMARY | 2025-07-17 16:02 | XMS_ITS | Referral Summary ---
Author Organization [employer] ([place], [place], [place], [place], [place]) Address [address] [place] [address] Care Team Providers Care P 3 Armament/Ordnance Ima Technician Name Role Phone Unavailable Primary Care [...] Date Antonio rded Speak language other than Polish at home Not on file 11/01/2023 Want [...] Plan of Treatment Not on file Insurance [facility] MEDICAID
--- OUTSIDE RECORDS SUMMARY | 2025-07-17 16:02 | XMS_ITS | Encounter Summary ---
Author Organization [facility] yste Address [address] [place] [address] Care Team Providers Care Grain Blender Name Role Phone Fauzia Sterling MD Primary Care Provider [phone] Encounter Details Date Type Department Care Team (Late st Contact Info) Description 11/05/2024 Results Follow-Up [facility] [address] [address] Fabiola Duong, HOTEL REGISTRATION CLERK [address] [address] Social History Tobacco Use Types Packs/Day [...] Description 07/28/2025 9:30 AM EST Office Visit [facility] MEDICAL [facility] FAMILY [facility] 1099 [facility] 100 [place] [phone] Fauzia Sterling MD 1099 [facility] 100 [place] [address] 01/01/2026 11:45 AM EDT Appointment [facility] 3000 [facility] [address] [place] [address] documented as of this encounter [...] documented as of this encounter Care Teams Grain Blender Relationship Specialty Start Date End Date Fauzia Streling MD [address] [place] [address] PCP - General Family Medicine 09/03/18 documented as of this encounter
--- OUTSIDE RECORDS SUMMARY | 2025-07-17 16:02 | XMS_ITS | Encounter Summary ---
Author Organization [employer] ([place], [place], [place], [place], [place]) Address [address] [place] [address] Care Team Providers Care White Sugar Supervisor Name Role Phone Unavailable Primary Care Provider Unavailabl e Encounter Details Date Type Department Care Team (Late st Contact Info) Description 11/12/[address] [facility] [place] [facility] [place] [address] ProviderJulito MD [address] [place] [address] Social History Tobacco Use Types Packs/Day Years Used Date Smoking Tobacco: Never Assessed Comments Unknown Sex and Gender Information Value Date Recorded Sex Assigned at Unknown 01/19/2022 4:47 PM CDT Legal Sex Male 6:33 PM CDT Gender Identity Not on file Sexual Orientation Not on file documented as of this encounter Miscellaneous Notes * Harishner Conversion Note - Julito Martin MD - [...]
--- OUTSIDE RECORDS SUMMARY | 2025-07-17 16:02 | XMS_ITS | Encounter Summary ---
[facility] Address [address] [place] [address] Care Team Providers Care Qc Manager Name Role Phone Fauzia Sterling MD Primary Care Provider Reason for Visit * Reason Comments Med Refill Encounter Details Date Type Department Care Team (Late st Contact Info) Description 02/27/2025 Refill [facility] [address] [facility] [address] [place] [phone] RhodaFabiola, MALWARE ANALYST [address] [place] [id number] Med Refill Social History Tobacco Use Types [...] Recorded In the past 12 months has [employer], gas, oil, or water [employer] threatened to shut off services in your [...] were you homeless or living in a skilled nursing (including now)? No 11/18/2024 Abuse Screen Answer [...] Description 07/28/2025 9:30 AM EST Office Visit [facility]ILY [facility] [address] [facility] 100 [place] [phone] Fauzia Sterling MD [address] [facility] [address] [place] [address] 01/01/2026 11:45 AM EDT Appointment [facility] 3000 [facility] [address] [place] [address] documented as of this encounter [...] documented as of this encounter Care Teams Qc Manager Relationship Specialty [place] [address] [place] [address] PCP - General Family Medicine 09/03/18 documented as of this encounter
--- OUTSIDE RECORDS SUMMARY | 2025-07-17 16:02 | XMS_ITS | Encounter Summary ---
Author Organization [employer] ([place], [place], [place], [place], [place]) Address [address] [place] [address] Care Team Providers Care Manager Transmission Name Role Phone Unavailable Primary Care Provider Unavailabl e Encounter Details Date Type Department Care Team (Late st Contact Info) Description 11/12/2018 Transcribed Document [facility] Family Medicine [facility] [place] [address] ProviderJulito MD [address] [place] [address] Social History Tobacco Use Types Packs/Day [...] On: 11/12/2018 12:15 EDT by SAM PARISI ELECTRICAL CONTINUITY TESTER Quick Look Assessment Level of Consciousness : Alert, Awake Affect/Behavior : Cooperative Orientation : Oriented x 4 Skin Color : Pallor Skin Temperature : Warm Skin Description : Dry SAM PARISI RN - 11/12/2018 12:15 EDT ED General-Functional Assess Information Obtained From : Patient Preferred Communication Mode : Verbal Communication Barrier : None Primary Language : Rwandan Any Spiritual/Cultural Needs or Requests : No [...] (Last Updated: 11/12/2018 12:17:39 EDT by SAM PARISI RN) Home/Environment: Living situation: Home/Independent. (Last Updated: [...] Rhythm : Regular Nail Bed Color : [place] EKG Completed by : Dylan Quick, Emergency Room Business Machine Operator EKG Communicated to Provider : BUDDY ROSENBERG [...] - 11/12/2018 12:15 EDT Electronically signed by Shayla, [facility] Conversion Client Architect Cerner at 11/08/2022 11:43 AM CDT documented in this encounter Plan of Treatment Not on file documented as of this encounter Visit Diagnoses Not on filedocumented in this encounter
--- OUTSIDE RECORDS SUMMARY | 2025-07-17 16:02 | XMS_ITS | Encounter Summary ---
[facility] Address [address] [place] [address] Care Team Providers Care Stick Inserter Name Role Phone Fauzia Sterling MD Primary Care Provider [phone] Reason for Visit * Reason Comments Med Refill Encounter Details Date Type Department Care Team (Late st Contact Info) Description 06/16/2024 Refill [facility]ILY MEDICINE [address] [phone] Fauzia Sterling MD [address] [address] Social History Tobacco Use Types [...] Description 07/28/2025 9:30 AM EST Office Visit [facility] MEDICAL [facility] FAMILY MEDICINE [address] [place] [address] Fauzia Sterling MD [address] [place] [address] 01/01/2026 11:45 AM EDT Appointment [facility] [address] [facility] [address] [place] [address] documented as of this encounter [...] documented as of this encounter Care Teams Stick Inserter Relationship Specialty Start Date End Date Fauzia Sterling MD [address] [place] [address] PCP - General Family Medicine 09/03/18 documented as of this encounter
--- OUTSIDE RECORDS SUMMARY | 2025-07-17 16:02 | XMS_ITS | Clinical Summary ---
Author Organization [employer] ([place], [place], [place], [place], [place]) Address [address] [facility] [place] [address] Care Team Providers Care Projects Manager Name Role Phone Unavailable Primary Care Provider [...] Date Antonio rded Speak language other than Lebanese at home Not on file 11/01/2023 Want [...] Shingles Vaccine (Zoster) (1 of 2) 2014 Tobacco Cessation Counseling and Screening (12+) 10/31/2024 11/01/2023 COVID-19 VACCINE (2 - 2024-2 6 season) 2025 03/10/2021 Influenza Vaccine (#1) 2025 , 05/26/2020, 04/28/2019, Additional history exists Lipid Panel 08/17/2026 08/17/2023 Insurance [facility] MEDICAID
[2025-07-17 16:47] LABS: Hepatitis C Ab Qual. W/ RFX NEGATIVE (Negative)
[2025-07-17 17:22] VITALS: BP 120/78; PULSE 80; RESP 18; TEMP 36.8; O2SAT 95
== END 2025-07-17 17:23 | disposition home or self-care (01) ==
PROVIDERS: Emergency Provider Student in an Organized Health Care Education/Training Program; PCP Family Medicine
DX: M79.605 Pain in left leg (principal); R79.1 Abnormal coagulation profile; I10 Essential (primary) hypertension; F17.210 Nicotine dependence, cigarettes, uncomplicated; Z86.718 Personal history of other venous thrombosis and embolism
CPT/HCPCS: 80053; 85025; 85378; 85610; 86803; 87389; 93971; 99284